=== PATIENT | male | born 1990 | race Hispanic/Latino ===

== ENCOUNTER 2018-04-25 11:16 | Emergency (ER) | payer SELFPAY ==
--- NOTE | 2018-04-25 13:00 | RAD REPORT ---
EXAM DESCRIPTION: RAD - Hand Right 3 View - 04/25/2018 12:53 pm CLINICAL HISTORY: Right hand pain status post injury FINDINGS: Comminuted mildly displaced fracture involves the mid aspect of the first proximal phalanx with angulation present at fracture site. No dislocation noted Deformity of the fifth metacarpal likely secondary to an old fracture
[2018-04-25] MEDS ORDERED: HYDROCODONE/APAP 5/325 MG TAB ONE (13:13)
--- NOTE | 2018-04-25 13:24 | EDPHYS ---
Physician Documentation [facility] Name: Lucien Calvillo Jr Age: 27 yrs Sex: Male : 1990 Arrival Date: 04/25/2018 Time: 11:17 Bed 10 Private MD: None, None ED Physician Negra Brennan HPI: 04/25 13:43 This 27 yrs old Male presents to ER via Ambulatory with complaints of Thumb snw Injury. 13:43 Onset: The symptoms/episode began/occurred acutely. The patient has not experienced snw similar symptoms in the past. The patient has not recently seen a physician. Historical: - Allergies: 11:58 Amoxicillin; ph - Home Meds: 11:58 None [Active]; ph - PMHx: 11:58 None; ph - PSHx: 11:58 None; ph - Immunization history:: Adult Immunizations unknown. - Social history:: Smoking status: Patient/guardian denies using tobacco. - Ebola Screening: : No symptoms or risks identified at this time. ROS: 13:41 Constitutional: Negative for fever, chills, and weight loss, Eyes: Negative for injury, snw pain, redness, and discharge, ENT: Negative for injury, pain, and discharge, Neck: Negative for injury, pain, and swelling, Cardiovascular: Negative for chest pain, palpitations, and edema, Respiratory: Negative for shortness of breath, cough, wheezing, and pleuritic chest pain, Abdomen/GI: Negative for abdominal pain, nausea, vomiting, diarrhea, and constipation, Back: Negative for injury and pain, : Negative for injury, bleeding, discharge, and swelling, Skin: Negative for injury, rash, and discoloration, Neuro: Negative for headache, weakness, numbness, tingling, and seizure, Psych: Negative for depression, anxiety, suicide ideation, homicidal ideation, and hallucinations. 13:41 MS/extremity: Positive for injury or acute deformity, contusion, decreased range of motion, ecchymosis, pain, swelling, tenderness, of the right thumb. Exam: 13:36 Constitutional: This is a well developed, cachectic patient who is awake, alert, and snw in no acute distress. Head/Face: Normocephalic, atraumatic. Eyes: Pupils equal round and reactive to light, extra-ocular motions intact. Lids and lashes normal. Conjunctiva and sclera are non-icteric and not injected. Cornea within normal limits. Periorbital areas with no swelling, redness, or edema. ENT: Nares patent. No nasal discharge, no septal abnormalities noted. Tympanic membranes are normal and external auditory canals are clear. Oropharynx with no redness, swelling, or masses, exudates, or evidence of obstruction, uvula midline. Mucous membranes moist. Neck: Trachea midline, no thyromegaly or masses palpated, and no cervical lymphadenopathy. Supple, full range of motion without nuchal rigidity, or vertebral point tenderness. No Meningismus. Chest/axilla: Normal chest wall appearance and motion. Nontender with no deformity. No lesions are appreciated. Cardiovascular: Regular rate and rhythm with a normal S1 and S2. No gallops, murmurs, or rubs. Normal PMI, no JVD. No pulse deficits. Respiratory: Lungs have equal breath sounds bilaterally, clear to auscultation and percussion. No rales, rhonchi or wheezes noted. No increased work of breathing, no retractions or nasal flaring. Abdomen/GI: Soft, non-tender, with normal bowel sounds. No distension or tympany. No guarding or rebound. No evidence of tenderness throughout. Back: No spinal tenderness. No costovertebral tenderness. Full range of motion. Skin: Warm, dry with normal turgor. Normal color with no rashes, no lesions, and no evidence of cellulitis. Neuro: Awake and alert, GCS 15, oriented to person, place, time, and situation. Cranial nerves II-XII grossly intact. Motor strength 5/5 in all extremities. Sensory grossly intact. Cerebellar exam normal. Normal gait. Psych: Awake, alert, with orientation to person, place and time. Behavior, mood, and affect are within normal limits. 13:42 Musculoskeletal/extremity: Extremities: noted in the right thumb: contusion, deformity, snw ecchymosis, swelling, tenderness, ROM: intact in all extremities, Circulation is intact in all extremities. Sensation intact. right thumb shortened. Vital Signs: 12:02 BP 126 / 78; Pulse 99; Resp 18; Temp 98.6; Pulse Ox 100% on R/A; Weight 52.16 kg; ph Height 5 ft. 5 in. (165.10 cm); Pain 5/10; 12:02 Body Mass Index 19.14 (52.16 kg, 165.10 cm) ph MDM: 12:15 Patient medically screened. snw 13:43 Data reviewed: vital signs, nurses notes. Data interpreted: Pulse oximetry: on room air snw is 100 %. Counseling: I had a detailed discussion with the patient and/or guardian regarding: the historical points, exam findings, and any diagnostic results supporting the discharge/admit diagnosis, radiology results, the need for outpatient follow up, for definitive care, to return to the emergency department if symptoms worsen or persist or if there are any questions or concerns that arise at home. Special discussion: Based on the history and exam findings, there is no indication for further emergent testing or inpatient evaluation. I discussed with the patient/guardian the need to see the orthopedic surgeon for further evaluation of the symptoms. I discussed with the patient/guardian the need to see the primary care provider for further evaluation of the symptoms. 04/25 12:19 Order name: Hand Right 3 View XRAY; Complete Time: 13:02 snw 04/25 12:56 Order name: Thumb Spica Splint; Complete Time: 13:13 snw Administered Medications: 13:09 Drug: [place] 5 mg-325 mg 1 tabs Route: PO; hb Disposition: 04/25/18 13:23 Discharged to Home. Impression: Fracture of proximal phalanx of thumb. - Condition is Stable. - Discharge Instructions: Cast or Splint Care, Adult, RICE for Routine Care of Injuries, Thumb Fracture. - Medication Reconciliation Form, Thank You Letter, Antibiotic Education, Prescription Opioid Use form. - Follow up: Private Physician; When: 2 - 3 days; Reason: Recheck today's complaints, Continuance of care, Re-evaluation by your physician. Follow up: Emergency Department; When: As needed; Reason: Worsening of condition. Follow up: Robby Dickerson MD; When: 2 - 3 days; Reason: Recheck today's complaints, Continuance of care. Follow up: Star Albrecht MD; When: 2 - 3 days; Reason: Recheck today's complaints, Continuance of care. Addendum: 04/27/2018 15:27 Co-signature as Attending Physician, Negra Brennan MD. m a2 Signatures: Dispatcher [employer] EDMS Nora Chambers, SEWER PIPE OFFBEARER-C SEWER PIPE OFFBEARER-Csnw Cande Garcias, RN RN Sandra Cano, DEANN RN Negra Brennan MD MD ma2 Corrections: (The following items were deleted from the chart) 04/25 13:24 13:23 04/25/2018 13:23 Discharged to Home. Impression: Fracture of proximal phalanx of snw thumb. Condition is Stable. Forms are Medication Reconciliation Form, Thank You Letter, Antibiotic Education, Prescription Opioid Use. Follow up: Private Physician; When: 2 - 3 days; Reason: Recheck today's complaints, Continuance of care, Re-evaluation by your physician. Follow up: Emergency Department; When: As needed; Reason: Worsening of condition. snw 13:30 13:24 04/25/2018 13:23 Discharged to Home. Impression: Fracture of proximal phalanx of hb thumb. Condition is Stable. Forms are Medication Reconciliation Form, Thank You Letter, Antibiotic Education, Prescription Opioid Use. Follow up: Private Physician; When: 2 - 3 days; Reason: Recheck today's complaints, Continuance of care, Re-evaluation by your physician. Follow up: Emergency Department; When: As needed; Reason: Worsening of condition. Follow up: Robby Dickerson; When: 2 - 3 days; Reason: Recheck today's complaints, Continuance of care. Follow up: Star Albrecht; When: 2 - 3 days; Reason: Recheck today's complaints, Continuance of care. snw
--- NOTE | 2018-04-25 13:24 | ER ---
Nurse's Notes [facility] Name: Lucien Calvillo Jr Age: 27 yrs Sex: Male : 1990 Arrival Date: 04/25/2018 Time: 11:17 Bed 10 Private MD: None, None Diagnosis: Fracture of proximal phalanx of thumb Presentation: 04/25 12:01 Presenting complaint: Patient states: I was wrestling w/ my cousin on [place] and I ph think I broke my thumb." Bruising and swelling noted to R hand and thumb. Transition of care: patient was not received from another setting of care. Onset of symptoms was April 25, 2018. Risk Assessment: Do you want to hurt yourself or someone else? Patient reports no desire to harm self or others. Initial Sepsis Screen: Does the patient meet any 2 criteria? No. Patient's initial sepsis screen is negative. Does the patient have a suspected source of infection? No. Patient's initial sepsis screen is negative. Care prior to arrival: None. 12:01 Method Of Arrival: Ambulatory ph 12:01 Acuity: GINNY 4 ph Historical: - Allergies: 11:58 Amoxicillin; ph - Home Meds: 11:58 None [Active]; ph - PMHx: 11:58 None; ph - PSHx: 11:58 None; ph - Immunization history:: Adult Immunizations unknown. - Social history:: Smoking status: Patient/guardian denies using tobacco. - Ebola Screening: : No symptoms or risks identified at this time. Screenin:30 Abuse screen: Denies threats or abuse. Denies injuries from another. Nutritional ph screening: No deficits noted. Tuberculosis screening: No symptoms or risk factors identified. Fall Risk None identified. Assessment: 12:30 General: Appears in no apparent distress. comfortable, slender, well groomed, Behavior ph is calm, cooperative, appropriate for age. Pain: Complains of pain in dorsal aspect of proximal phalanx of right thumb. Neuro: Level of Consciousness is awake, alert, obeys commands, Oriented to person, place, time, situation. Cardiovascular: Capillary refill < 3 seconds in bilateral fingers Patient's skin is warm and dry. Pulses are palpable in right radial artery and left radial artery. Respiratory: Airway is patent Respiratory effort is even, unlabored. Derm: Skin is intact, is healthy with good turgor, Skin is pink, warm \\T\\ dry. Bruising that is dark purple, green, on lateral aspect of right hand. Musculoskeletal: Circulation, motion, and sensation intact. Range of motion: limited in MCP of right thumb Swelling present in dorsal aspect of proximal phalanx of right thumb. Vital Signs: 12:02 BP 126 / 78; Pulse 99; Resp 18; Temp 98.6; Pulse Ox 100% on R/A; Weight 52.16 kg; ph Height 5 ft. 5 in. (165.10 cm); Pain 5/10; 12:02 Body Mass Index 19.14 (52.16 kg, 165.10 cm) ph ED Course: 11:17 Patient arrived in ED. mr 11:17 None, None is Private Physician. mr 11:48 [facility]C [facility] snw 11:48 Negra Brennan MD is Attending Physician. snw 12:01 Cande Garcias, RN is Primary Nurse. ph 12:02 Triage completed. ph 12:03 Arm band placed on Patient placed in an exam room. ph 12:30 Patient has correct armband on for positive identification. Bed in low position. Call ph light in reach. Side rails up X 1. 12:53 Hand Right 3 View XRAY In Process Unspecified. EDMS 12:55 X-ray completed. Portable x-ray completed in exam room. Patient tolerated procedure kp1 well. 13:23 Robby Dickerson MD is Referral Physician. snw 13:24 Star Albrecht MD is Referral Physician. snw 13:30 No provider procedures requiring assistance completed. Patient did not have IV access hb during this emergency room visit. Administered Medications: 13:09 Drug: [place] 5 mg-325 mg 1 tabs Route: PO; hb Outcome: 13:23 Discharge ordered by . snw 13:30 Discharged to home ambulatory, with significant other. hb 13:30 Condition: stable 13:30 Discharge instructions given to patient, Instructed on discharge instructions, follow up and referral plans. Demonstrated understanding of instructions, follow-up care, medications, splint care. 13:30 Patient left the ED. hb Signatures: Dispatcher [employer] EDMS Nora Chambers FNP-C FNP-Csnw Lisha Gordillo Patricia, RN RN ph Sandra Cano, RN RN Lynn Raza kp1
[2018-04-25 13:39] VITALS: BP 126/78; TEMP 98.6; O2SAT 100
== END 2018-04-25 13:30 | disposition home or self-care (01) ==
LOC: ER 11:16
DX: S62.511A Displaced fracture of proximal phalanx of right thumb, initial encounter for closed fracture (principal); X58.XXXA Exposure to other specified factors, initial encounter; Y93.72 Activity, wrestling
CPT/HCPCS: 99283

== ENCOUNTER 2018-05-23 09:09 | Emergency (ER) | payer SELFPAY ==
--- NOTE | 2018-05-23 09:38 | EDPHYS ---
Physician Documentation [facility] Name: Lucien Calvillo Jr Age: 27 yrs Sex: Male : 1990 Arrival Date: 05/23/2018 Time: 09:12 Bed 14 Private MD: ED Physician Jp Rios HPI: 05/23 15:43 This 27 yrs old Male presents to ER via Ambulatory with complaints of kdr Toothache, Facial Swelling. 15:43 The patient presents with pain, swelling. The problem is located in the upper left kdr first bicuspid, upper left second bicuspid and upper left first molar. Onset: The symptoms/episode began/occurred 2 day(s) ago. Duration: The symptoms are continuous, and are steadily getting worse. Modifying factors: The symptoms are alleviated by nothing, the symptoms are aggravated by air, chewing, cold fluids, food. Associated signs and symptoms: Pertinent positives: pain, redness in area, swelling, Pertinent negatives: anorexia, chills, dysphagia, fever, inability to eat, vomiting. Severity of symptoms: At their worst the symptoms were moderate, in the emergency department the symptoms are unchanged. The patient has experienced similar episodes in the past, a few times. The patient has not recently seen a physician. Historical: - Allergies: 09:27 Amoxicillin; tw2 - Home Meds: :27 None [Active]; tw2 - PMHx: :27 None; tw2 - PSHx: :27 None; tw2 - Immunization history:: Adult Immunizations. - Social history:: Smoking status: . - Ebola Screening: : Patient negative for fever greater than or equal to 101.5 degrees Fahrenheit, and additional compatible Ebola Virus Disease symptoms. ROS: 15:43 Constitutional: Negative for fever, chills, and weight loss, Eyes: Negative for injury, kdr pain, redness, and discharge, Neck: Negative for injury, pain, and swelling, Cardiovascular: Negative for chest pain, palpitations, and edema, Respiratory: Negative for shortness of breath, cough, wheezing, and pleuritic chest pain, Abdomen/GI: Negative for abdominal pain, nausea, vomiting, diarrhea, and constipation, Back: Negative for injury and pain. 15:43 ENT: Positive for dental pain, Negative for drainage from ear(s), ear pain, foreign body sensation, hearing loss, pulling at ears. Exam: 15:43 Constitutional: This is a well developed, well nourished patient who is awake, alert, kdr and in no acute distress. Head/Face: Normocephalic, atraumatic. Eyes: Pupils equal round and reactive to light, extra-ocular motions intact. Lids and lashes normal. Conjunctiva and sclera are non-icteric and not injected. Cornea within normal limits. Periorbital areas with no swelling, redness, or edema. Neck: Trachea midline, no thyromegaly or masses palpated, and no cervical lymphadenopathy. Supple, full range of motion without nuchal rigidity, or vertebral point tenderness. No Meningismus. Chest/axilla: Normal chest wall appearance and motion. Nontender with no deformity. No lesions are appreciated. Cardiovascular: Regular rate and rhythm with a normal S1 and S2. No gallops, murmurs, or rubs. Normal PMI, no JVD. No pulse deficits. 15:43 ENT: Mouth: Lips: normal, Oral mucosa: normal, Dental exam: abscess, that is moderate, specifically in the upper left first bicuspid (#12), upper left second bicuspid (#13) and upper left first molar (#14), dental caries, that is moderate, diffusely, fractured teeth are noted, diffusely. Vital Signs: 09:29 BP 119 / 77; Pulse 69; Resp 18; Temp 98.6(O); Pulse Ox 100% on R/A; Pain 9/10; tw2 MDM: 09:35 Patient medically screened. kdr 15:43 Data reviewed: vital signs, nurses notes. Counseling: I had a detailed discussion with kdr the patient and/or guardian regarding: the historical points, exam findings, and any diagnostic results supporting the discharge/admit diagnosis, the need for further work-up and treatment in the hospital. ED course: The patient is going directly to the dentist. Administered Medications: 09:33 Drug: Ibuprofen 800 mg Route: PO; tw2 09:37 Follow up: Response: No adverse reaction tw2 Disposition: 05/23/18 09:35 Discharged to Home. Impression: Dental Abscess, Facial Cellulitis. - Condition is Stable. - Discharge Instructions: Cellulitis, Adult, [id number], Dental Abscess, [id number]. - Medication Reconciliation Form, Thank You Letter form. - Follow up: Private Physician; When: Upon discharge from the Emergency Department; Reason: If symptoms return, Further diagnostic work-up, Recheck today's complaints, Continuance of care, Re-evaluation by your physician. - Problem is new. - Symptoms are unchanged. Signatures: Jp Rios MD MD kdr Deb Best RN RN tw2 Corrections: (The following items were deleted from the chart) 09:37 09:35 05/23/2018 09:35 Discharged to Home. Impression: Dental Abscess; Facial tw2 Cellulitis. Condition is Stable. Forms are Medication Reconciliation Form, Thank You Letter, Antibiotic Education, Prescription Opioid Use. Follow up: Private Physician; When: Upon discharge from the Emergency Department; Reason: If symptoms return, Further diagnostic work-up, Recheck today's complaints, Continuance of care, Re-evaluation by your physician. Problem is new. Symptoms are unchanged. kdr
--- NOTE | 2018-05-23 09:38 | ER ---
Nurse's Notes [facility] Name: Lucien Calvillo Jr Age: 27 yrs Sex: Male : 1990 Arrival Date: 05/23/2018 Time: 09:12 Bed 14 Private MD: Diagnosis: Dental Abscess;Facial Cellulitis Presentation: 05/23 09:23 Presenting complaint: Patient states: i have a tooth that is killing me and i made a tw2 dentist appt at 940 today but i really need something for pain, is it gonna be quick because i dont want to miss that appt". Transition of care: patient was not received from another setting of care. Onset of symptoms was May 23, 2018. Risk Assessment: Do you want to hurt yourself or someone else? Patient reports no desire to harm self or others. Initial Sepsis Screen: Does the patient meet any 2 criteria? No. Patient's initial sepsis screen is negative. Does the patient have a suspected source of infection? No. Patient's initial sepsis screen is negative. Care prior to arrival: None. 09:23 Method Of Arrival: Ambulatory tw2 09:23 Acuity: GINNY 4 tw2 Triage Assessment: 09:28 General: Appears uncomfortable, slender, Behavior is calm, cooperative, appropriate for tw2 age. Pain: Complains of pain in left cheek, left eye, mouth and left jaw. EENT: swelling noted to LEFT eye, cheek, pt reports dental pain. Reports pain in left ear, left cheek, left eye, mouth and left jaw. Respiratory: Airway is patent Respiratory effort is even, unlabored, Respiratory pattern is regular, symmetrical. Historical: - Allergies: 09:27 Amoxicillin; tw2 - Home Meds: 09:27 None [Active]; tw2 - PMHx: 09:27 None; tw2 - PSHx: 09:27 None; tw2 - Immunization history:: Adult Immunizations. - Social history:: Smoking status: . - Ebola Screening: : Patient negative for fever greater than or equal to 101.5 degrees Fahrenheit, and additional compatible Ebola Virus Disease symptoms. Screenin:35 Abuse screen: Denies threats or abuse. Nutritional screening: No deficits noted. tw2 Tuberculosis screening: No symptoms or risk factors identified. Fall Risk None identified. Vital Signs: 09:29 BP 119 / 77; Pulse 69; Resp 18; Temp 98.6(O); Pulse Ox 100% on R/A; Pain 9/10; tw2 ED Course: 09:12 Patient arrived in ED. rg4 09:16 Jp Rios MD is Attending Physician. kdr 09:23 Arm band placed on. tw2 09:23 Bed in low position. Call light in reach. Pulse ox on. NIBP on. tw2 09:27 Triage completed. tw2 09:32 Deb Best, RN is Primary Nurse. tw2 09:36 No provider procedures requiring assistance completed. Patient did not have IV access tw2 during this emergency room visit. Administered Medications: 09:33 Drug: Ibuprofen 800 mg Route: PO; tw2 09:37 Follow up: Response: No adverse reaction tw2 Outcome: 09:35 Discharge ordered by . kdr 09:36 Discharged to home ambulatory. tw2 09:36 Condition: stable 09:37 Discharged to home ambulatory. tw2 09:37 Condition: stable 09:37 Discharge instructions given to patient, Instructed on discharge instructions, follow up and referral plans. Demonstrated understanding of instructions, follow-up care. 09:37 Patient left the ED. tw2 Signatures: Jp Rios MD MD kdr Deb Best RN RN tw2 Jennifer Tate rg4
[2018-05-23 09:43] VITALS: BP 119/77; TEMP 98.6; O2SAT 100
[2018-05-23] MEDS ORDERED: IBUPROFEN 400 MG TAB ONE (09:44)
== END 2018-05-23 09:37 | disposition home or self-care (01) ==
LOC: ER 09:09
DX: K12.2 Cellulitis and abscess of mouth (principal); K04.7 Periapical abscess without sinus
CPT/HCPCS: 99283

== ENCOUNTER 2018-11-07 18:22 | Emergency (ER) | payer SELFPAY ==
--- OUTSIDE RECORDS SUMMARY | 2018-11-07 18:26 | XMS REPORT ---
:1990 [facility] [address] [place] [address] Care Team Providers Name Role Phone Unavailable Unavailable Unavailable Problems This patient has no known problems. Allergies, Adverse Reactions, Alerts This patient has no known allergies or adverse reactions. Medications This patient has no known medications. Encounters Start End Encounter Admission Attending Care Care Encounter Date/Time Date/Time Type Type Clinicians Facility Department ID 2018-10-26 2018-10-26 Inpatient U [facility] [id number] 05:23:00 00:57:00
--- NOTE | 2018-11-07 20:07 | ER ---
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 Transition of care: patient was not received from another setting of care. Onset of symptoms was November 07, 2018. Risk Assessment: Do you want to hurt yourself or someone else? Patient reports no desire to harm self or others. Initial Sepsis Screen: Does the patient meet any 2 criteria? No. Patient's initial sepsis screen is negative. Does the patient have a suspected source of infection? No. Patient's initial sepsis screen is negative. Care prior to arrival: None. 18:43 Method Of Arrival: Ambulatory ph 18:43 Acuity: GINNY 3 ph Triage Assessment: 20:12 General: Appears in no apparent distress. Behavior is cooperative, flat. ao Historical: - Allergies: 18:50 Amoxicillin; ph - PMHx: 18:50 MELAS; CVA; Seizures; ph - PSHx: 18:50 None; ph - Immunization history:: Adult Immunizations unknown. - Social history:: Smoking status: Patient uses tobacco products, denies chronic smoking, but will smoke occasionally. - Ebola Screening: : Patient negative for fever greater than or equal to 101.5 degrees Fahrenheit, and additional compatible Ebola Virus Disease symptoms Patient denies exposure to infectious person Patient denies travel to an Ebola-affected area in the 21 days before illness onset. Screenin:27 Abuse screen: Denies threats or abuse. Nutritional screening: No deficits noted. tl2 Tuberculosis screening: No symptoms or risk factors identified. Fall Risk Gait- Impaired (20 pts.). Assessment: 20:10 General: Appears in no apparent distress. comfortable, Behavior is cooperative, flat. ao Pain: Denies pain. Neuro: Level of Consciousness is awake, alert, obeys commands, Oriented to person, place, time, situation, Appropriate for age Moves all extremities. Full function Speech is normal, Facial symmetry appears normal. Cardiovascular: Capillary refill < 3 seconds Patient's skin is warm and dry. Respiratory: Airway is patent Respiratory effort is even, unlabored, Respiratory pattern is regular, symmetrical. GI: Abdomen is flat. :. EENT: No deficits noted. No signs and/or symptoms were reported regarding the EENT system. Derm: Skin is intact, Skin is pink, warm \T\ dry. normal, Skin temperature is warm. Musculoskeletal: Circulation, motion, and sensation intact. Range of motion:. 20:24 Reassessment: DC instructions given to patient and mom. Patient agree with the POC and ao to follow up. Vital Signs: 18:50 BP 123 / 74; Pulse 118; Resp 18; Temp 97.8; Pulse Ox 97% on R/A; Height 5 ft. 5 in. ph (165.10 cm); Pain 0/10; 19:26 BP 130 / 91; Pulse 86; Resp 20; Pulse Ox 98% on R/A; tl2 Baisden Coma Score: 20:12 Eye Response: spontaneous(4). Verbal Response: oriented(5). Motor Response: obeys ao commands(6). Total: 15. ED Course: 18:24 Patient arrived in ED. as 18:47 Triage completed. ph 18:50 Arm band placed on Patient placed in an exam room, on a stretcher. ph 19:04 Art Mccoy MD is Attending Physician. gs 19:27 Patient has correct armband on for positive identification. Bed in low position. Call tl2 light in reach. Side rails up X2. Seizure precautions initiated. 20:05 Hunter Clancy, DEANN is Primary Nurse. ao 20:23 No provider procedures requiring assistance completed. Patient did not have IV access ao during this emergency room visit. Administered Medications: 20:09 Drug: Keppra 1000 mg Route: PO; ao 20:27 Follow up: Response: No adverse reaction ao Outcome: 20:06 Discharge ordered by . gs 20:23 Discharged to home ambulatory. ao 20:23 Condition: stable 20:23 Discharge instructions given to patient, Instructed on discharge instructions, follow up and referral plans. 20:26 Patient left the ED. ao Signatures: Joie Hoffman Patricia, RN RN ph Hunter Clancy RN RN Deborah Guevara RN RN tl2 Art Mccoy MD MD
--- NOTE | 2018-11-07 20:07 | EDPHYS ---
Physician Documentation [facility] Name: Lucien Calvillo Jr Age: 28 yrs Sex: Male : 1990 Arrival Date: 11/07/2018 Time: 18:24 Bed 4 Private MD: ED Physician Art Mccoy HPI: 11/07 20:02 This 28 yrs old Male presents to ER via Ambulatory with complaints of Seizure. gs 20:02 The patient presents after having a single isolated seizure. Character of seizure(s): gs Motor activity: generalized. Seizure onset: yesterday x one. Associated injury: The patient did not suffer any apparent associated injury. Current symptoms: tingling lateral left hand. The patient has experienced a previous episode. The patient has been recently seen by a physician: ashwini wilkinson has been unable to get med fillied. 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 - Social history:: Smoking status: Patient uses tobacco products, denies chronic smoking, but will smoke occasionally. - Ebola Screening: : Patient negative for fever greater than or equal to 101.5 degrees Fahrenheit, and additional compatible Ebola Virus Disease symptoms Patient denies exposure to infectious person Patient denies travel to an Ebola-affected area in the 21 days before illness onset. ROS: 20:02 All other systems are negative. gs Exam: 20:02 Head/Face: Normocephalic, atraumatic. Eyes: Pupils equal round and reactive to light, gs extra-ocular motions intact. Lids and lashes normal. Conjunctiva and sclera are non-icteric and not injected. Cornea within normal limits. Periorbital areas with no swelling, redness, or edema. ENT: Nares patent. No nasal discharge, no septal abnormalities noted. Tympanic membranes are normal and external auditory canals are clear. Oropharynx with no redness, swelling, or masses, exudates, or evidence of obstruction, uvula midline. Mucous membranes moist. Neck: Trachea midline, no thyromegaly or masses palpated, and no cervical lymphadenopathy. Supple, full range of motion without nuchal rigidity, or vertebral point tenderness. No Meningismus. Chest/axilla: Normal chest wall appearance and motion. Nontender with no deformity. No lesions are appreciated. Cardiovascular: Regular rate and rhythm with a normal S1 and S2. No gallops, murmurs, or rubs. Normal PMI, no JVD. No pulse deficits. Respiratory: Lungs have equal breath sounds bilaterally, clear to auscultation and percussion. No rales, rhonchi or wheezes noted. No increased work of breathing, no retractions or nasal flaring. Abdomen/GI: Soft, non-tender, with normal bowel sounds. No distension or tympany. No guarding or rebound. No evidence of tenderness throughout. Back: No spinal tenderness. No costovertebral tenderness. Full range of motion. Skin: Warm, dry with normal turgor. Normal color with no rashes, no lesions, and no evidence of cellulitis. MS/ Extremity: Pulses equal, no cyanosis. Neurovascular intact. Full, normal range of motion. 20:02 Constitutional: The patient appears alert, awake. 20:02 Neuro: Orientation: is normal, Mentation: is normal, Memory: is normal, Cranial nerves: CN II- XII are normal as tested, Cerebellar function: no acute changes, Motor: moves all fours, strength is 5/5 in all extremities, Sensation: pin prick is decreased in the lateral aspect of left wrist and lateral aspect of left hand. Vital Signs: 18:50 BP 123 / 74; Pulse 118; Resp 18; Temp 97.8; Pulse Ox 97% on R/A; Height 5 ft. 5 in. ph (165.10 cm); Pain 0/10; 19:26 BP 130 / 91; Pulse 86; Resp 20; Pulse Ox 98% on R/A; tl2 Kendra Coma Score: 20:12 Eye Response: spontaneous(4). Verbal Response: oriented(5). Motor Response: obeys ao commands(6). Total: 15. MDM: 19:34 Patient medically screened. gs 20:02 Data reviewed: vital signs, nurses notes, old medical records. Counseling: I had a gs detailed discussion with the patient and/or guardian regarding: the historical points, exam findings, and any diagnostic results supporting the discharge/admit diagnosis, the need for outpatient follow up. ED course: spoke to dr wilkinson on phone wants loaded po keppra , will call pt in am with social media director [facility] to get meds filled. Administered Medications: 20:09 Drug: Keppra 1000 mg Route: PO; ao 20:27 Follow up: Response: No adverse reaction ao Disposition: 11/07/18 20:06 Discharged to Home. Impression: Epilepsy and recurrent seizures. - Condition is Stable. - Discharge Instructions: Seizure, Adult. - Medication Reconciliation Form, Thank You Letter, Antibiotic Education, Prescription Opioid Use form. - Follow up: Private Physician; When: Tomorrow; Reason: Continuance of care. Signatures: Cande Garcias RN RN Hunter Clancy RN RN ao Art Mccoy MD MD Corrections: (The following items were deleted from the chart) 20:26 20:06 11/07/2018 20:06 Discharged to Home. Impression: Epilepsy and recurrent seizures. ao Condition is Stable. Forms are Medication Reconciliation Form, Thank You Letter, Antibiotic Education, Prescription Opioid Use. Follow up: Private Physician; When: Tomorrow; Reason: Continuance of care.
[2018-11-07] MEDS ORDERED: levETIRAcetam 500 MG TAB ONE (20:22)
[2018-11-07 20:32] VITALS: BP 130/91; TEMP 97.8; O2SAT 98
== END 2018-11-07 20:26 | disposition home or self-care (01) ==
LOC: ER 18:22
DX: G40.802 Other epilepsy, not intractable, without status epilepticus (principal); Z72.0 Tobacco use; Z88.1 Allergy status to other antibiotic agents
CPT/HCPCS: 99283

== ENCOUNTER 2018-11-29 20:55 | Emergency (ER) | payer SELFPAY ==
--- OUTSIDE RECORDS SUMMARY | 2018-11-29 21:00 | XMS REPORT | Continuity of Care Document ---
:1990 Author Organization [employer] Information [facility] Care Team Providers Name Role Phone Atooma Unavailable Unavailable Problems Problem Status Onset Classification Date Comments Source Date Reported AMS Active [address] MELAS, LACTIC Active [place] [address] Medical STRK-LIKE EPISO Center MELAS SYNDROME Active [facility] CEREBRAL Active [facility] INFARCTION, Medical UNSPECIFIED Center Medications Medication Details Route Status Patient Ordering Order Source Instructions Provider Date lacosamide 50 mg 50 mg=1 tab, Active [facility] oral tablet PO, BID, # 120 2019 Medical tab, 2 Center Refill(s) olanzapine 5 MG 5 mg=1 tab, Active [facility] Oral Tablet PO, PRN, PRN 2019 Medical Other -See Center Comment, PRN Q12, # 60 tab, 0 Refill(s) ubiquinone 200 mg 400 mg=2 cap, Active [facility] oral capsule PO, Daily, # 2019 Medical 120 cap, 0 Center Refill(s) melatonin 3 mg 6 mg=2 tab, Active [facility] oral tablet PO, Bedtime, 2019 Medical PRN Sleep, # Center 60 tab, 0 Refill(s) lacosamide 50 mg 50 mg=1 tab, Inactive [facility] oral tablet PO, BID, # 7 2019 Medical tab, 0 Center Refill(s) olanzapine 5 MG 5 mg=1 tab, Inactive [facility] Oral Tablet PO, PRN, PRN 2019 Medical Other -See Center Comment, # 60 tab, 0 Refill(s) arginine 500 mg 5,000 mg=10 Active 11/05[facility] oral capsule cap, PO, TID, 2019 Medical # 1800 cap, 0 Center Refill(s) D10W 980.75 mL + 980.75 mL, No Longer [facility] sodium chloride Rate: 100 Active 2019 Medical 23.4% IV 77 mEq ml/hr, Infuse Center over: 10 hr, Route: IV, Dosing Weight 50 kg, Total Volume: 1,000, Priority: Routine, Start date: 11/04/18 20:55:00 CDT, Duration: 30 day, Stop date: 12/04/18 20:54:00 CDT, 1.55, m2, 0 magnesium sulfate 2 gm, 50 mL, Inactive 11/03[facility] Route: IVPB, 2019 Medical Drug form: [place] INJ, ONCE, Dosing Weight 50, kg, Total dose=2 gm, Start date: 11/03/18 12:44:00 CDT, Stop date: 11/03/18 12:44:00 CDT, 0Notes: WASTE: F/P - Sink; E - Municipal Trash Bin Potassium 40 mEq, 2 tab, Inactive 11/03[facility] Chloride Route: PO, 2019 Medical Drug form: [place] ERTAB, ONCE, Dosing Weight 50, kg, Priority: NOW, Start date: 11/03/18 12:40:00 CDT, Stop date: 11/03/18 12:40:00 CDT, 0 arginine 5,000 mg, 10 Inactive 11/03[facility] cap, Route: 2019 Medical PO, Drug form: [place] CAP, ONCE, Start date: 11/03/18 10:45:00 CDT, Stop date: 11/03/18 10:45:00 CDT, 0Notes: (Same as: Arginine) potassium 20 mEq, 100 Inactive 11/03[facility] chloride mL, Route: 2019 Medical IVPB, Drug Center form: INJ, Q2H, Start date: 11/03/18 8:30:00 CDT, Duration: 3 doses or times, Stop date: 11/03/18 12:00:00 CDT, 0 Potassium 10 mEq, Route: Inactive 11/03[facility] Chloride IVPB, Q1H, 2019 Medical Dosing Weight [place] 50, kg, Total Dose=60 meq, Start date: 11/03/18 7:22:00 CDT, Duration: 6 doses or times, Stop date: 11/03/18 12:22:00 CDT, Peripheral Line Magnesium Sulfate 2 gm, 50 mL, Inactive 11/03[facility] Route: IVPB, 2019 Medical Drug form: [place] INJ, ONCE, Dosing Weight 50, kg, Total dose=2 gm, Start date: 11/03/18 7:21:00 CDT, Stop date: 11/03/18 7:21:00 CDT, 0Notes: WASTE: F/P - Sink; E - [employer] Trash [facility] magnesium sulfate 2 gm, 50 mL, Inactive [facility] Route: IVPB2018 Medical Drug form: Center INJ, Q2H, Dosing Weight 50, kg, Total dose=4 gm, Start date: 11/02/18 14:00:00 CDT, Duration: 2 doses or times, Stop date: 11/02/18 16:00:00 CDT, 0Notes: WASTE: F/P - Sink; E - [facility] Trash [facility] Magnesium Sulfate 2 gm, 50 mL, Inactive [facility] Route: IVPB2018 Medical Drug form: Center INJ, Q2H, Dosing Weight 50, kg, Total dose=4 gm, Start date: 11/02/18 6:29:00 CDT, Duration: 2 doses or times, Stop date: 11/02/18 8:30:00 CDT, 0Notes: WASTE: F/P - Sink; E - [facility] Trash [facility] Potassium 10 mEq, 50 mL, Inactive [place] Chloride Route: IVPB2018 Medical Drug form: Center INJ, Q1H, Dosing Weight 50, kg, Total Dose=40 meq, Start date: 11/02/18 6:00:00 CDT, Duration: 4 doses or times, Stop date: 11/02/18 9:00:00 CDT, Peripheral Line, 0Notes: (Same as: KCL) Infuse over 2 hours. potassium 20 mEq, 15 mL, Inactive [place] chloride Route: PO, 2018 Medical Drug form: [place] LIQ, BID, Dosing Weight 50, kg, Start date: 11/01/18 9:00:00 CDT, Duration: 1 day, Stop date: 11/01/18 17:00:00 CDT, 0Notes: (Same as: Potassium Chloride) Marinol 10 mg, 2 cap, No Longer [place] Route: PO, Active 2019 Medical Drug form: [place] CAP, BID, Dosing Weight 50, kg, Start date: 10/31/18 17:00:00 CDT, Duration: 30 day, Stop date: 11/30/18 9:00:00 CDT, 0Notes: (Same as: Marinol) Magnesium Sulfate 2 gm, 50 mL, Inactive [place] Route: IVPB, 2018 Medical Drug form: Center INJ, ONCE, Dosing Weight 50, kg, Total dose=2 gm, Start date: 10/31/18 12:16:00 CDT, Stop date: 10/31/18 12:16:00 CDT, 0Notes: WASTE: F/P - Sink; E - [facility] Trash Bin Potassium 20 mEq, 100 Inactive [place] Chloride mL, Route: 2019 Medical IVPB, Drug Center form: INJ, Q2H, Dosing Weight 50, kg, Total dose=40 mEq, Start date: 10/31/18 8:00:00 CDT, Duration: 2 doses or times, Stop date: 10/31/18 10:00:00 CDT, Central Line, 0 Potassium 10 mEq, Route: Inactive [place] Chloride IVPB, Q1H, 2018 Medical Dosing Weight Center 50, kg, Total Dose=40 meq, Start date: 10/31/18 7:00:00 CDT, Duration: 4 doses or times, Stop date: 10/31/18 10:00:00 CDT, Peripheral Line Melatonin 6 mg, 2 tab, No Longer [place] Route: PO, Active 2018 Medical Drug form: Center TAB, Bedtime, Dosing Weight 50, kg, PRN Sleep, Start date: 10/31/18 2:45:00 CDT, Duration: 30 day, Stop date: 11/30/18 2:44:00 CDT, 0Notes: (Same as: Melatonin) Phenergan 12.5 mg, 0.5 No Longer [place] mL, Route: Active 2018 Medical IVPB, Drug Center form: INJ, Q6H, Dosing Weight 50, kg, PRN Nausea & Vomiting, Start date: 10/30/18 22:30:00 CDT, Duration: 1 day, Stop date: 10/31/18 22:29:00 CDT, 0Notes: Do not give IV push. (Same as: Phenergan) Vancomycin 1,000 mg, Inactive [place] Route: IVPB, 2019 Medical Drug form: Center INJ, [id number], Dosing Weight 50, kg, Start date: 10/30/18 20:00:00 CDT, Duration: 7 day, Stop date: 11/06/18 8:00:00 CDT, ABX Indication: Bacteremia, 0Notes: TIME CRITICAL MEDICATION (Same As: Vancocin) Infusion rate 2001 mg: infuse over 2.5 hours For adult patients only: Round to nearest 250 mg per Medical Staff approval MEDICATION WASTE Product Size: 1000 mg Product Wasted: ___ mg potassium 20 mEq, 100 Inactive [place] chloride mL, Route: 2019 [facility] IVPB, Drug Center form: INJ, Q2H, Start date: 10/30/18 12:00:00 CDT, Duration: 2 doses or times, Stop date: 10/30/18 14:00:00 CDT, 0Notes: (Same as: KCL) Infuse no faster than 10 mEq/hr if given peripherally. olanzapine 2.5 mg, Route: No Longer [place] IM, Drug form: Active 2019 [facility] INJ, Q4H, [place] Dosing Weight 50, kg, PRN Agitation, Start date: 10/30/18 11:56:00 CDT, Duration: 30 day, Stop date: 11/29/18 11:55:00 CDT, 0Notes: (Same As: ZyPREXA IM). Reconstitute with 2.1 ml sterile water for injection; use within 1 hour after reconstitution . For IM use only; do not administer IV or SUB-Q. Potassium 10 mEq, Route: Inactive [place] Chloride IVPB, Q1H, 2019 [facility] Dosing Weight [place] 50, kg, Total Dose=40 meq, Start date: 10/30/18 11:00:00 CDT, Duration: 4 doses or times, Stop date: 10/30/18 14:00:00 CDT, Peripheral Line Vimpat 50 mg, 1 tab, No Longer [place] Route: PO, Active 2019 Medical Drug form: [place] TAB, BID, Dosing Weight 50, kg, Start date: 10/30/18 9:00:00 CDT, Duration: 30 day, Stop date: 11/28/18 17:00:00 CDT, 0Notes: Same as: Vimpat Potassium 40 mEq, 30 mL, Inactive [facility] Chloride 1.33 Route: PO, 2019 Medical MEQ/ML Oral Drug form: [place] Solution LIQ, Daily, Dosing Weight 50, kg, Start date: 10/30/18 9:00:00 CDT, Duration: 7 day, Stop date: 11/05/18 9:00:00 CDT, 0Notes: (Same as: Potassium Chloride) Vancomycin 1,000 mg, Inactive [facility] Route: IVPB, 2019 Medical Drug form: [place] INJ, ONCE, Dosing Weight 50, kg, Priority: STAT, Start date: 10/30/18 8:59:00 CDT, Stop date: 10/30/18 8:59:00 CDT, ABX Indication: Bacteremia, 0Notes: TIME CRITICAL MEDICATION (Same As: Vancocin) Infusion rate 2001 mg: infuse over 2.5 hours For adult patients only: Round to nearest 250 mg per Medical Staff approval MEDICATION WASTE Product Size: 1000 mg Product Wasted: ___ mg cefepime 1 gm, Route: Inactive [facility] IVP, Drug 2019 Medical form: INJ, Center [id number], Dosing Weight 50, kg, (CrCl >/=60 ml/min), Start date: 10/30/18 8:00:00 CDT, Duration: 7 day, Stop date: 11/06/18 0:00:00 CDT, ABX Indication: Bacteremia, 0Notes: (Same As: Maxipime) MEDICATION WASTE Product Size: 1000 mg Product Wasted: ___ mg Tylenol 650 mg, 20.3 No Longer [facility] mL, Route: PO, Active 2019 Medical Drug form: [place] LIQ, ONCE, Dosing Weight 50, kg, Priority: STAT, Start date: 10/30/18 6:51:00 CDT, Stop date: 10/30/18 6:51:00 CDT, 0Notes: Max acetaminophen= 4000mg/day (4 gm/day). (Same as: Tylenol) L-Arginine 5,000 mg, 10 No Longer [facility] cap, Route: Active 2019 Medical PO, Drug form: [place] CAP, TID, Dosing Weight 50, kg, Priority: NOW, Start date: 10/30/18 4:45:00 CDT, Duration: 30 day, Stop date: 11/28/18 17:00:00 CDT, 0Notes: (Same as: Arginine) Potassium 10 mEq, 50 mL, Inactive [facility] Chloride Route: IVPB2018 Medical Drug form: Center INJ, Q1H, Dosing Weight 50, kg, Total Dose=20 meq, Priority: NOW, Start date: 10/30/18 4:41:00 CDT, Duration: 2 doses or times, Stop date: 10/30/18 5:41:00 CDT, Peripheral Line, 0Notes: (Same as: KCL) Infuse over 2 hours. NS (Bolus) IV 500 mL, 500 Inactive [facility] ml/hr, Infuse 2018 Medical Over: 1 hr, Center Route: IV, 500, Drug form: INJ, ONCE, Priority: STAT, Dosing Weight 50 kg, Start date: 10/30/18 0:46:00 CDT, Stop date: 10/30/18 0:46:00 CDT, 0 Zyprexa 2.5 mg, 1 tab, No Longer [facility] Route: PO, Active 2019 Medical Drug form: Center TAB, BID, Dosing Weight 50, kg, Priority: NOW, Start date: 10/29/18 19:18:00 CDT, Duration: 2 doses or times, Stop date: 11/02/18 9:00:00 CDT, 0Notes: (Same as: ZyPREXA) NS (Bolus) IV 500 mL, 500 Inactive [facility] ml/hr, Infuse 2018 Medical Over: 1 hr, Center Route: IV, 500, Drug form: INJ, ONCE, Priority: STAT, Dosing Weight 50 kg, Start date: 10/29/18 3:57:00 CDT, Stop date: 10/29/18 3:57:00 CDT, 0 Potassium 10 mEq, 50 mL, Inactive [facility] Chloride Route: IVPB, 2018 Medical Drug form: Center INJ, Q1H, Dosing Weight 50, kg, Total Dose=20 meq, Start date: 10/29/18 2:00:00 CDT, Duration: 2 doses or times, Stop date: 10/29/18 3:00:00 CDT, Peripheral Line, 0Notes: (Same as: KCL) Infuse over 2 hours. D10W 980.75 mL + 980.75 mL, No Longer [facility] sodium chloride Rate: 200 Active 2019 Medical 23.4% IV 77 mEq ml/hr, Infuse Center over: 5 hr, Route: IV, Dosing Weight 50 kg, Total Volume: 1,000, Priority: Routine, Start date: 10/28/18 18:03:00 CDT, Duration: 30 day, Stop date: 11/27/18 18:02:00 CDT, 1.55, m2, 0 sterile water 2.1 mL, Route: No Longer [facility] MISC, Drug Active 2018 Medical Form: INJ, Center Q4H, PRN Other -See Comment, Start date: 10/28/18 14:54:00 CDT, Stop date: 11/27/18 14:53:00 CDT, 0 Geodon 10 mg, Route: Inactive [facility] IM, Drug form: 2019 Medical PDR/INJ, ONCE, Center Dosing Weight 50, kg, Priority: NOW, Start date: 10/28/18 14:48:00 CDT, Stop date: 10/28/18 14:48:00 CDT, 0Notes: Reconstitute with 1.2 ml of sterile water. Final concentration= 20 mg/1ml. Maximum 40 mg/24 hours (Same As: Geodon). MEDICATION WASTE Product Size: 20 mg Product Wasted: _0__ mg Acyclovir 500 mg, Route: Inactive 10/28[facility] IV, Q8H-2018 Medical Dosing Weight Center 50, kg, Priority: STAT, Start date: 10/28/18 14:01:00 CDT, Duration: 30 day, Stop date: 11/27/18 14:00:00 CDT, 0Notes: (Same as: Zovirax) For adult patients only: Round to nearest 50 mg per Medical Staff approval MEDICATION WASTE Product Size: 500 mg Product Wasted: _0__ mg atorvastatin 80 mg, Route: Inactive 10/27/ [facility] PO, Drug form: 2019 Medical TAB, Bedtime, Center kg, Start date: 10/26/18 21:00:00 CDT, Duration: 30 day, Stop date: 11/24/18 21:00:00 CDT Levocarnitine 2,270 mg, Inactive [facility] Route: PO, 2019 Medical Q12H, Dosing Center Weight 45.455, kg, Start date: 10/26/18 21:00:00 CDT, Duration: 30 day, Stop date: 11/25/18 9:00:00 CDT Geodon 10 mg, Route: No Longer [facility] IM, Drug form: Active 2018 Medical PDR/INJ, Q6H, Center Dosing Weight 45.455, kg, PRN Agitation, Start date: 10/26/18 18:27:00 CDT, Duration: 30 day, Stop date: 11/25/18 18:26:00 CDT, 0Notes: Reconstitute with 1.2 ml of sterile water. Final concentration= 20 mg/1ml. Maximum 40 mg/24 hours (Same As: Geodon). MEDICATION WASTE Product Size: 20 mg Product Wasted: 0mg Keppra 750 mg, Route: No Longer [facility] IVPB, [id number], Active 2018 Medical Dosing Weight Center 45.455, kg, Start date: 10/26/18 18:00:00 CDT, Duration: 30 day, Stop date: 11/25/18 6:00:00 CDT, 0Notes: Same as Keppra Mix with 100 mL NS, LR or D5W MEDICATION WASTE Product Size: 500 mg Product Wasted: ___ mg R-Gene 10 4 gm + Route: IV, No Longer [facility] empty container 1 Drug form: Active 2019 Medical ea INJ, Q4Hnow, Center Start date: 10/26/18 15:00:00 CDT, Duration: 3 day, Stop date: 10/29/18 11:00:00 CDT, 0Notes: (Same as: R-Gene 10) D10W 980.75 mL + 980.75 mL, No Longer [facility] sodium chloride Rate: 150 Active 2019 Medical 23.4% IV 77 mEq ml/hr, Infuse Center over: 6.7 hr, Route: IV, Dosing Weight 50 kg, Total Volume: 1,000, Priority: Routine, Start date: 10/26/18 12:44:00 CDT, Duration: 30 day, Stop date: 11/25/18 12:44:00 CDT, 1.55, m2, 0 arginine 10% 50 mL, Rate: Inactive [facility] additive 5,000 mg 9.09 ml/hr, 2019 Medical [20 mg/kg/hr] + Infuse over: Center Drug Only 50 mL 5.5 hr, Route: IV, Dosing Weight 45.455 kg, Total Volume: 50 mL, Start date: 10/26/18 12:44:00 CDT, Duration: 30 day, Stop date: 11/25/18 12:43:00 CDT, 1.46, m2 ubiquinone 400 mg, 2 cap, No Longer [facility] Route: PO, Active 2019 Medical Drug form: Center CAP, Daily, kg, Start date: 10/26/18 9:00:00 CDT, Duration: 30 day, Stop date: 11/24/18 9:00:00 CDT, 0Notes: (Same As: Co-Enzyme Q10) Saline Flush 0.9% 10 ml, Route: No Longer [facility] IVP, Drug Active 2018 Medical Form: INJ, kg, Center Q12H, Start date: 10/26/18 9:00:00 CDT, Duration: 30 day, Stop date: 11/24/18 21:00:00 CDT, 0Notes: (Same as: BD Posiflush) L-Arginine 5,000 mg, Inactive [facility] Route: PO, 2019 Medical TID, kg, Start Center date: 10/26/18 9:00:00 CDT, Duration: 30 day, Stop date: 11/24/18 17:00:00 CDT Phenergan 25 mg, Route: Inactive [facility] IVPB, ONCE, 2019 Medical kg, Start Center date: 10/26/18 8:58:00 CDT, Stop date: 10/26/18 8:58:00 CDT Dexmedetomidine 400 microgram, No Longer [facility] Rate: Titrate, Active 2019 Medical Start Dose: Center 0.2 microgram/kg/h r, Titration: 0.1 microgram/kg/h r every 30 min, Goal(s): RASS 0, Max Dose: 1.5 microgram/kg/h r, Route: IV, Dosing Weight 45.455 kg, Total Volume: 100, Start date: 10/26/18 7:54:00 CDT, Durati... Saline Flush 0.9% 10 ml, Route: No Longer [facility] IVP, Drug Active 2018 Medical Form: INJ, kg, Center PRN, PRN Line Flush, Start date: 10/26/18 7:45:00 CDT, Duration: 30 day, Stop date: 11/25/18 7:44:00 CDT, 0Notes: (Same as: BD Posiflush) Nystatin 100 1 appl, Route: No Longer [facility] UNT/MG Topical TOP, PRN, Drug Active 2018 Medical Powder form: PWDR, [place] PRN For Fungal Prophylaxis, Start date: 10/26/18 7:45:00 CDT, Duration: 30 day, Stop date: 11/25/18 7:44:00 CDT, 0Notes: (Same as:Mycostatin, Nilstat) For external use only. Ativan 0.5 mg, 0.25 No Longer [facility] mL, Route: Active 2018 Medical IVP, Drug Center form: INJ, Q6H, kg, PRN Anxiety, Start date: 10/26/18 6:19:00 CDT, Duration: 30 day, Stop date: 11/25/18 6:18:00 CDT, 0Notes: (Same as: Ativan) Haldol 2.5 mg, 0.5 Inactive [facility] mL, Route: IV, 2018 Medical Drug form: [place] INJ, ONCE, kg, Start date: 10/26/18 6:11:00 CDT, Stop date: 10/26/18 6:11:00 CDT, 0Notes: (Same as: Haldol) Versed 5 mg, Route: Inactive [facility] IVP, ONCE, kg, 2018 Medical Start date: [place] 10/26/18 5:45:00 CDT, Stop date: 10/26/18 5:45:00 CDT Ativan 2 mg, Route: Inactive 10/26[facility] IVP, Drug 2019 Medical form: INJ, Center Q6H, kg, PRN Anxiety, Start date: 10/26/18 5:42:00 CDT, Duration: 30 day, Stop date: 11/25/18 5:41:00 CDT Ativan 2 mg, Route: Inactive 10/26[facility] PO, Drug form: 2019 Medical TAB, TID, kg, Center PRN Anxiety, Start date: 10/26/18 5:41:00 CDT, Duration: 30 day, Stop date: 11/25/18 5:40:00 CDT Saline Flush 0.9% 10 ml, Route: No Longer [facility] IVP, Drug Active 2019 Medical Form: INJ, kg, Center PRN, PRN Line Flush, Start date: 10/26/18 5:23:00 CDT, Duration: 30 day, Stop date: 11/25/18 5:22:00 CDT, 0Notes: (Same as: BD Posiflush) Haldol 2.5 mg, Route: Inactive 10/26[facility] IM, ONCE, kg, 2019 Medical Start date: [place] 10/26/18 4:21:00 CDT, Stop date: 10/26/18 4:21:00 CDT Haldol 5 mg, Route: Inactive 10/26[facility] IM, ONCE, kg, 2018 Medical Priority: [facility], Start date: 10/26/18 4:20:00 CDT, Stop date: 10/26/18 4:20:00 CDT Versed 3 mg, Route: Inactive 10/26[facility] IM, ONCE, kg, 2019 Medical Start date: [place] 10/26/18 4:20:00 CDT, Stop date: 10/26/18 4:20:00 CDT Versed 3 mg, Route: Inactive 10/26[facility] IVP, ONCE, kg, 2019 Medical Priority: [facility], Start date: 10/26/18 4:18:00 CDT, Stop date: 10/26/18 4:18:00 CDT Ketamine 30 mg, Route: Inactive 10/26[facility] IV, Drug form: 2019 Medical SOLN, ONCE, Center kg, Start date: 10/26/18 2:07:00 CDT, Stop date: 10/26/18 2:07:00 CDT, 0Notes: (Same as: keTALAR) Allergies, Adverse Reactions, Alerts Substance Category Reaction Severity Reaction Status Date Comments Source type Reported amoxicillin Assertion Drug Active [facility] Immunizations No Data Provided for This Section Results Order Name Results Value Reference Date Interpretation Comments Source Range HEMATOLOGY Basophils 0.6 0.0 - 1.0 11/[address] HEMATOLOGY Eosinophils 3.0 0.0 - 4.0 11/[address] HEMATOLOGY Monocytes 6.5 2.0 - 12.0 11/[address] HEMATOLOGY Lymphocytes 28.9 20.0 - 0708 [place] 40.0 [facility] HEMATOLOGY Monocytes # 0.7 0.0 - 0.8 11/[address] HEMATOLOGY Lymphocytes # 3.0 1.0 - 5.5 11/[address] HEMATOLOGY Neutrophils # 6.4 1.5 - 8.1 11/[address] HEMATOLOGY Basophils # 0.1 0.0 - 0.2 11/[address] HEMATOLOGY Eosinophils # 0.3 0.0 - 0.5 11/[address] HEMATOLOGY Segs 61.0 45.0 - 11/04 [place] 75.0 2019 [facility] HEMATOLOGY RBC 4.13 4.70 - 11/04 [place] 6.10 [facility] HEMATOLOGY WBC 10.4 3.7 - 10.4 11/[address] HEMATOLOGY MCHC 35.0 32.0 - 0708 [place] 36.0 2019 [facility] HEMATOLOGY Platelet 218 133 - 450 11/04 [facility]2018 [facility] HEMATOLOGY RDW 13.3 11.5 - 0708 [place] 14.5 /2019 [facility] HEMATOLOGY Hgb 12.5 14.0 - 0708 [place] 18.0 2019 [facility] HEMATOLOGY MPV 8.5 7.4 - 10.4 11/[address] HEMATOLOGY MCV 86.4 80.0 - 0708 [place] 94.0 /2019 [facility] HEMATOLOGY Hct 35.6 42.0 - 07/08 [place] 54.0 /2019 [facility] HEMATOLOGY MCH 30.2 27.0 - 07/08 [facility] 31.0 [facility] CHEM PANEL Phosphorus 5.4 2.5 - 4.5 07/ [facility] CHEM PANEL Magnesium Lvl 1.8 1.8 - 2.4 / [facility] CHEM PANEL eGFR 134 07/08 Result Comment: The Medical eGFR is Center calculated using the CKD-EPI formula. In most young, healthy individuals the eGFR will be >90 mL/min/1.73m2 . The eGFR declines with age. An eGFR of 60-89 may be normal in some populations, particularly the elderly, for whom the CKD-EPI formula has not been extensively validated. Use of the eGFR is not recommended in the following populations:< br/>
Carissa viduals with unstable creatinine concentration s, including patients and those with serious co-morbid conditions.<b r/>
Patie nts with extremes in muscle mass or diet.

The data above are obtained from the National Kidney Disease Education Program (NKDEP) which additionally recommends that when the eGFR is used in patients with extremes of body mass index for purposes of drug dosing, the eGFR should be multiplied by the estimated BMI. CHEM PANEL Calcium Lvl 8.1 8.5 - 10.5 11/04 [facility] CHEM PANEL Sodium Lvl 137 135 - 145 11/04 [facility] CHEM PANEL Potassium Lvl 4.8 3.5 - 5.1 11/04 Result Comment: [facility] Moderately Hemolyzed. CHEM PANEL Chloride Lvl 104 95 - 109 / [facility] CHEM PANEL CO2 25 24 - 32 07/ [facility] CHEM PANEL BUN 15 7 - 22 / [facility] CHEM PANEL Creatinine 0.65 0.50 - 07/ [facility] Lvl 1.40 /2018 [facility] CHEM PANEL Glucose Lvl 224 70 - 99 / [facility] CHEM PANEL AGAP 12.8 10.0 - 07 [facility] 20.0 [facility] PARATHYROID Ca Norm WB 1.05 1.05 - 11/04 [place] PROFILE . [facility] PARATHYROID Ca Ion WB 1.05 1.05 - 11/04 [place] PROFILE 1. [facility] CHEM PANEL Magnesium Lvl 1.8 1.8 - 2.4 11/[address] CHEM PANEL Phosphorus 4.2 2.5 - 4.5 11/[address] ELECTROLYTE AGAP 13.1 10.0 - 11/03 [facility] [place] [facility] 20.0 [facility] ELECTROLYTE eGFR 128 11/03 Result [facility] Comment: The Medical eGFR is Center calculated using the CKD-EPI formula. In most young, healthy individuals the eGFR will be >90 mL/min/1.73m2 . The eGFR declines with age. An eGFR of 60-89 may be normal in some populations, particularly the elderly, for whom the CKD-EPI formula has not been extensively validated. Use of the eGFR is not recommended in the following populations:< br/>
Carissa viduals with unstable creatinine concentration s, including patients and those with serious co-morbid conditions.<b r/>
Patie nts with extremes in muscle mass or diet.

The data above are obtained from the National Kidney Disease Education Program (NKDEP) which additionally recommends that when the eGFR is used in patients with extremes of body mass index for purposes of drug dosing, the eGFR should be multiplied by the estimated BMI. ELECTROLYTE Calcium Lvl 8.0 8.5 - 10.5 11/[address] ELECTROLYTE Chloride Lvl 111 95 - 109 11/03 47 [address] ELECTROLYTE CO2 21 24 - 32 11/[address] ELECTROLYTE BUN 10 7 - 22 11/[address] ELECTROLYTE Creatinine 0.72 0.50 - 11/03 [facility] Lvl 1.40 [facility] ELECTROLYTE Glucose Lvl 94 70 - 99 11/[address] ELECTROLYTE Sodium Lvl 142 135 - 145 11/[address] ELECTROLYTE Potassium Lvl 3.1 3.5 - 5.1 11/[address] HEMATOLOGY Eosinophils # 0.2 0.0 - 0.5 11/[address] HEMATOLOGY Basophils # 0.1 0.0 - 0.2 11/[address] HEMATOLOGY Lymphocytes 37.1 20.0 - 11/03 [facility] 40. [facility] HEMATOLOGY Monocytes 8.0 2.0 - 12.0 11/03 [facility] HEMATOLOGY Segs 51.3 45.0 - 11/03 [place] 75.0 /2019 [facility] HEMATOLOGY Monocytes # 0.7 0.0 - 0.8 11/03 [facility]2018 [facility] HEMATOLOGY Lymphocytes # 3.1 1.0 - 5.5 11/[address] HEMATOLOGY Eosinophils 2.7 0.0 - 4.0 11/03 [facility]2018 [facility] HEMATOLOGY Basophils 0.9 0.0 - 1.0 11/[address] HEMATOLOGY Neutrophils # 4.3 1.5 - 8.1 11/[address] HEMATOLOGY WBC 8.5 3.7 - 10.4 11/03 [facility]2018 [facility] HEMATOLOGY RBC 3.70 4.70 - 11/03 [place] 6.10 [facility] HEMATOLOGY Hgb 11.3 14.0 - 11/03 [facility] 18.0 [facility] HEMATOLOGY Hct 31.5 42.0 - 11/03 [facility] 54.0 [facility] HEMATOLOGY MPV 9.4 7.4 - 10.4 11/03 [facility] HEMATOLOGY RDW 12.9 11.5 - 11/03 [facility] 14.5 [facility] HEMATOLOGY Platelet 207 133 - 450 11/03 [facility]2018 [facility] HEMATOLOGY MCHC 35.9 32.0 - 11/03 [facility] 36.0 /2018 [facility] HEMATOLOGY MCH 30.5 27.0 - 11/03 [place] 31.0 [facility] HEMATOLOGY MCV 85.1 80.0 - 11/03 [place] 94.0 [facility] PARATHYROID Ca Norm WB 1.08 1.05 - 11/03 [facility] PROFILE . [facility] PARATHYROID Ca Ion WB 1.09 1.05 - 11/03 [facility] PROFILE 05.24 [facility] CHEM PANEL Phosphorus 4.1 2.5 - 4.5 11/02 [facility]2018 [facility] CHEM PANEL Magnesium Lvl 1.5 1.8 - 2.4 11/02 [facility]2018 [facility] CHEM PANEL eGFR 137 07/ [facility] Comment: The Medical eGFR is Center calculated using the CKD-EPI formula. In most young, healthy individuals the eGFR will be >90 mL/min/1.73m2 . The eGFR declines with age. An eGFR of 60-89 may be normal in some populations, particularly the elderly, for whom the CKD-EPI formula has not been extensively validated. Use of the eGFR is not recommended in the following populations:< br/>
Carissa viduals with unstable creatinine concentration s, including patients and those with serious co-morbid conditions.<b r/>
Patie nts with extremes in muscle mass or diet.

The data above are obtained from the National Kidney Disease Education Program (NKDEP) which additionally recommends that when the eGFR is used in patients with extremes of body mass index for purposes of drug dosing, the eGFR should be multiplied by the estimated BMI. CHEM PANEL Calcium Lvl 8.9 8.5 - 10.5 11/[address] CHEM PANEL CO2 20 24 - 32 11/[address] CHEM PANEL AGAP 14.0 10.0 - 07 [facility] 20.0 [facility] CHEM PANEL Creatinine 0.62 0.50 - 11/02 [facility] Lvl 1.40 [facility] CHEM PANEL BUN 7 7 - 22 11/[address] CHEM PANEL Potassium Lvl 3.0 3.5 - 5.1 11/02 Result Comment: [facility] Result(s) called to Gail Ellsworth at 11/02/2018 04:46 by stp. Read back OK. CHEM PANEL Sodium Lvl 143 135 - 145 11/[address] CHEM PANEL Chloride Lvl 112 95 - 109 11/[address] CHEM PANEL Glucose Lvl 98 70 - 99 11/[address] CHEM PANEL Lactic Acid 3.6 0.5 - 2.2 11/02 [facility] HEMATOLOGY Basophils # 0.1 0.0 - 0.2 11/[address] HEMATOLOGY Basophils 0.7 0.0 - 1.0 11/[address] HEMATOLOGY Eosinophils 3.5 0.0 - 4.0 / [address] HEMATOLOGY Neutrophils # 4.4 1.5 - 8.1 11/[address] HEMATOLOGY Monocytes 8.5 2.0 - 12.0 11/[address] HEMATOLOGY Lymphocytes 35.2 20.0 - 11/02 [place] 40.0 /2019 [facility] HEMATOLOGY Segs 52.1 45.0 - 11/02 [place] 75.0 /2019 [facility] HEMATOLOGY Eosinophils # 0.3 0.0 - 0.5 11/02 [facility] HEMATOLOGY Monocytes # 0.7 0.0 - 0.8 11/02 [facility] HEMATOLOGY Lymphocytes # 3.0 1.0 - 5.5 11/02 [facility] HEMATOLOGY MPV 8.7 7.4 - 10.4 11/02 [facility] HEMATOLOGY RDW 13.0 11.5 - 11/02 [place] 14.5 [facility] HEMATOLOGY Platelet 194 133 - 450 11/02 [facility] HEMATOLOGY MCV 85.8 80.0 - 11/02 [facility] 94.0 [facility] HEMATOLOGY MCH 31.1 27.0 - 11/02 [facility] 31.0 [facility] HEMATOLOGY MCHC 36.2 32.0 - 11/02 [facility] 36.0 [facility] HEMATOLOGY Hgb 12.2 14.0 - 11/02 [place] 18.0 [facility] HEMATOLOGY Hct 33.6 42.0 - 11/02 [place] 54.0 2019 [facility] HEMATOLOGY WBC 8.5 3.7 - 10.4 11/02 [facility] HEMATOLOGY RBC 3.92 4.70 - 11/02 [place] 6.10 [facility] PARATHYROID Ca Ion WB 1.15 1.05 - 11/02 [facility] PROFILE . [facility] PARATHYROID Ca Norm WB 1.11 1.05 - 11/02 [facility] PROFILE . [facility] CHEM PANEL Lactic Acid 4.7 0.5 - 2.2 11/02 Result [facility] Comment: Medical Critical Center Result(s) called to Gail Ellsworth at 11/01/2018 20:27 by AC. Read back OK. CHEM PANEL Lactic Acid 4.2 0.5 - 2.2 11/01 Result [facility] Comment: Medical Critical Center Result(s) called to [place] at 11/01/2018 12:05 by wx. Read back OK. TOXICOLOGY Vanco Tr 1.3 10/31 [facility] TOXICOLOGY Vanco Tr TND 0730 10/31 [facility] CHEM PANEL Pyruvic Acid 0.3 0.3 - 0.7 10/30 Result Comment: Medical
This Center test was developed and its performance characteristi cs
determ ined by [facility]. It has not been cleared or
approv ed by the Food and Drug Administratio n.
Perfor med At: [facility] [place]
[address], [place] [id number]< br/>Krishna Smiley MD Ph:[phone] URINE AND UA Sq Epi None Seen 10/30 [facility] URINE AND UA <1.0 0.1 - 1.0 10/30 [facility] Urobilinogen /2018 [facility] URINE AND UA Nitrite Negative Negative 10/30 [facility] (10/30/18 10:08 AM) [facility] URINE AND UA Mucus Few /LPF None Seen 10/30 [facility] STOOL /LPF /2018 [facility] URINE AND UA Bacteria Occasional None Seen 10/30 [facility] /HPF /HPF /2018 [facility] URINE AND UA Blood Moderate Negative 10/30 [facility] *ABN* /2018 [facility] (10/30/18 10:08 AM) [place] URINE AND UA Leuk Est Small Negative 10/30 [facility] *ABN* /2018 [facility] (10/30/18 10:08 AM) [place] URINE AND UA WBC 1 0 - 5 10/30 [facility] URINE AND UA RBC 1 0 - 2 10/30 [facility] URINE AND UA Spec Grav 1.005 <=1.030 10/30 [facility] [address] [place] [address] URINE AND UA pH 6.0 5.0 - 8.0 10/30 [facility] /2018 [facility] URINE AND UA Protein Negative Negative 10/30 [facility] mg/dL mg/dL [facility] URINE AND UA Bili Negative Negative 10/30 [facility] *NA* /2018 [facility] (10/30/18 10:08 AM) [place] URINE AND UA Turbidity Clear Clear 10/30 [facility] (10/30/18 10:08 AM) [facility] URINE AND UA Ketones Negative Negative 10/30 [facility] mg/dL mg/dL [facility] URINE AND UA Glucose Negative Negative 10/30 [facility] STOOL mg/dL mg/dL /2018 [facility] URINE AND UA Color Light Yellow Yellow 10/30 [facility] STOOL *NA* /2018 [facility] (10/30/18 10:08 AM) [place] CHEM PANEL Lipase Lvl 94 73 - 393 10/28 [facility] CHEM PANEL Amylase Lvl 59 25 - 115 10/28 [facility] IMMUNOLOGY HIV Ag/Ab 4th Negative Negative 10/28 [facility] Gen *NA* [facility] (10/28/18 4:04 PM) [place] URINE AND UA Nitrite Negative Negative 10/28 [facility] (10/28/18 2:06 PM) /2018 [facility] URINE AND UA Leuk Est Trace Negative 10/28 [facility] STOOL *ABN* [facility] (10/28/18 2:06 PM) [place] URINE AND UA Sq Epi None Seen Few 10/28 [facility] (10/28/18 2:06 PM) /2018 [facility] URINE AND UA Bili Negative Negative 10/28 [facility] STOOL *NA* /2018 [facility] (10/28/18 2:06 PM) [place] URINE AND UA Blood Negative Negative 10/28 [facility] (10/28/18 2:06 PM) /2018 [facility] URINE AND UA 0.2 0.1 - 1.0 10/28 [facility] Urobilinogen /2018 [facility] URINE AND UA Protein Negative Negative 10/28 [facility] (10/28/18 2:06 PM) /2018 [facility] URINE AND UA Glucose Negative Negative 10/28 [facility] (10/28/18 2:06 PM) /2018 [facility] URINE AND UA Ketones Negative Negative 10/28 [facility] STOOL *NA* /2018 [facility] (10/28/18 2:06 PM) [place] URINE AND UA Turbidity Clear Clear 10/28 [facility] (10/28/18 2:06 PM) /2018 [facility] URINE AND UA pH 5.5 5.0 - 8.0 10/28 [facility] /2018 [facility] URINE AND UA Spec Grav 1.010 <=1.030 10/28 [facility] URINE AND UA Color Yellow Yellow 10/28 [facility] STOOL *NA* /2018 [facility] (10/28/18 2:06 PM) [place] URINE AND UA RBC <1 0 - 2 10/28 [facility] /2018 [facility] URINE AND UA WBC 1 0 - 5 10/28 [facility] STOOL /2018 [facility] URINE AND UA Bacteria Occasional None Seen 10/28 [facility] STOOL /HPF /HPF /2018 [facility] URINE AND UA Mucus Few /LPF None Seen 10/28 [facility] STOOL /LPF /2018 [facility] DRUG SCREEN UDS Note See Note 10/26 [facility] (10/26/18 4:34 PM) /2018 [facility] DRUG SCREEN U Negative Negative 10/26 [facility] Phencyclidine *NA* Medical [facility]r (10/26/18 4:34 PM) Center DRUG SCREEN U Opiate Scr Negative Negative 10/26 [place] *NA* Medical (10/26/18 4:34 PM) Center DRUG SCREEN U Heather Scr Negative Negative 10/26 [place] *NA* [facility] (10/26/18 4:34 PM) Center DRUG SCREEN U Amph Scr Negative Negative 10/26 [place] *NA* [facility] (10/26/18 4:34 PM) Center DRUG SCREEN U Benzodiaz Positive Negative 10/26 [place] Scr *ABN* [facility] (10/26/18 4:34 PM) Center DRUG SCREEN U Cannab Scr Negative Negative 10/26 [place] *NA* Medical (10/26/18 4:34 PM) Center DRUG SCREEN U Cocaine Scr Negative Negative 10/26 [place] *NA* [facility] (10/26/18 4:34 PM) [place] URINE AND UA Glucose 50mg/dl 10/26 [facility] /2018 [facility] URINE AND UA Turbidity Clear Clear 10/26 [facility] (10/26/18 4:34 PM) [facility] URINE AND UA Spec Grav 1.026 <=1.030 10/26 [facility] STOOL /2018 [facility] URINE AND UA Color Yellow Yellow 10/26 [facility] STOOL *NA* [facility] (10/26/18 4:34 PM) [place] URINE AND UA Bili Negative Negative 10/26 [facility] STOOL *NA* [facility] (10/26/18 4:34 PM) [place] URINE AND UA Protein 100 mg/dL Negative 10/26 [facility] STOOL mg/dL [facility] URINE AND UA Ketones Negative Negative 10/26 [facility] STOOL mg/dL mg/dL [facility] URINE AND UA pH 5.0 5.0 - 8.0 10/26 [facility] STOOL /[address] [place] [address] URINE AND UA <1.0 0.1 - 1.0 10/26 [facility] Urobilinogen /2018 [facility] URINE AND UA Blood Negative Negative 10/26 [facility] STOOL (10/26/18 4:34 PM) /2018 [facility] URINE AND UA WBC <1 0 - 5 10/26 [facility] [address] [place] [address] URINE AND UA Nitrite Negative Negative 10/26 [facility] (10/26/18 4:34 PM) /2018 [facility] URINE AND UA Mucus Few /LPF None Seen 10/26 [facility] STOOL /LPF /2018 [facility] URINE AND UA Leuk Est Negative Negative 10/26 [facility] (10/26/18 4:34 PM) /2018 [facility] URINE AND UA Sq Epi None Seen 10/[address] URINE AND UA RBC 1 0 - 2 10/26 [facility] /[address] [place] [address] BACTERIAL - MRSA by PCR Negative 10/26 [facility] SEROLOGY (10/26/18 11:26 AM) [facility] CHEM PANEL Ammonia 39.0 <=45.0 10/26 [facility] uMol/L [facility] CHEM PANEL A/G Ratio 0.9 0.7 - 1.6 10/[address] CHEM PANEL Globulin 3.7 2.7 - 4.2 10/[address] CHEM PANEL Alk Phos 91 39 - 136 10/[address] CHEM PANEL Bili Total 0.3 0.2 - 1.3 10/[address] CHEM PANEL AST 25 0 - 37 10/[address] CHEM PANEL Bili Direct 0.1 0.0 - 0.3 10/[address] CHEM PANEL Bili Indirect 0.2 0.0 - 1.0 10/[address] CHEM PANEL ALT 28 0 - 65 10/[address] CHEM PANEL Albumin Lvl 3.5 3.5 - 5.0 10/[address] CHEM PANEL Total Protein 7.2 6.4 - 8.4 10/[address] CHEM PANEL Amylase Lvl 58 25 - 115 10/[address] CHEM PANEL Lipase Lvl 62 73 - 393 10/[address] CHEM PANEL A/G Ratio 1.0 0.7 - 1.6 10/[address] CHEM PANEL B/C Ratio 27 6 - 25 10/[address] CHEM PANEL Globulin 3.9 2.7 - 4.2 10/[address] CHEM PANEL ALT 30 0 - 65 10/[address] CHEM PANEL Bili Total 0.3 0.2 - 1.3 10/[address] CHEM PANEL Alk Phos 97 39 - 136 10/[address] CHEM PANEL Albumin Lvl 4.0 3.5 - 5.0 10/[address] CHEM PANEL AST 23 0 - 37 10/[address] CHEM PANEL Total Protein 7.9 6.4 - 8.4 10/[address] CHEM PANEL Bili Direct <0.1 0.0 - 0.3 10/[address] LIPIDS VLDL 24 10/26 [facility]2018 [facility] LIPIDS LDL 78 <=99 mg/dL 10/26 [facility] (Calculated) [facility] LIPIDS Trig 118 <=149 10/26 [facility] mg/dL [facility] LIPIDS HDL 34 >=61 mg/dL 10/[address] LIPIDS Chol 136 <=199 10/26 [facility] mg/dL [facility] LIPIDS CHD Risk 4.00 4.00 - 10/26 [facility] 7. [facility] SPECIAL Hgb A1C 5.4 <=5.6 % 10/26 [facility] Pathology Reports No Data Provided for This Section Diagnostic Reports Report Value Date Source Chest 1view DX EXAM: XR CHEST 1 VIEW 10/30/2018 [facility] DATE: 10/30/2018 7:03 T Center INDICATION: - Fever, with cough. TECHNIQUE: Chest 1 view FINDINGS: A single AP semierect view of the chest is submitted without a prior study for comparison. Heart is not enlarged. Mediastinal contours are unremarkable. The lungs are clear. Pulmonary vascularity is normal. No pleural effusions. The bones are unremarkable. IMPRESSION: The lungs are clear bilaterally and well-expanded. Brain wo contrast CT EXAM: CT BRAIN WITHOUT CONTRAST 10/26/2018 [facility] Medical DATE: 10/26/2018 2:22 T Center INDICATION: - ams recent esthela temp stroke, recently diagnosed with MELAS at [facility]. COMPARISON: Outside MRI brain 10/22/2018, 10/20/2018. Outside CT brain without contrast 10/18/2018. Outside CTA had and neck 10/20/2018. TECHNIQUE: Routine axial images of the brain were obtained without contrast.Coronal and sagittal reformatted images. IV contrast: None. FINDINGS: Evolving areas of hypodensity and loss of longo-white differentiation consistent with subacute infarction involving the bilateral temporal lobes and right greater than left parietal lobes. Subtle areas o f increased density in the involved cortices in the right greater than left temporal lobes may represent areas of residual cortex and/ or superimposed evolving petechial hemorrhage. Associated effacemen t of contiguous sulci. No midline shift. The basal cisterns remain patent. The ventricles are normal in size. Chronic lacunar infarcts in the bilateral thalami. Smaller rounded hypodensity projecting ov er the right posterior cerebellar hemisphere may be in part due to artifact when compared to prior exams. IMPRESSION: 1. Subacute infarction involving bilateral temporal lobes and to a lesser extent extending into the right greater than left contiguous parietal lobes. Areas of curvilinear increased density in the righ t greater than left temporal lobes may represent areas of residual cortex versus evolving petechial hemorrhage. 2. Chronic infarcts in the bilateral thalami. Above findings were communicated via telephone with Dr. Coronel (ED) at 0255 hours on 10/26/[address] Vernon. [place] SECTION: Neuro Consultation Notes No Data Provided for This Section Discharge Summaries No Data Provided for This Section History and Physicals No Data Provided for This Section Vital Signs Vital Sign Value Date Comments Source Systolic (mm Hg) 113 11/05/2018 [facility] Diastolic (mm Hg) 76 11/05/2018 [facility] Respitory Rate 18 11/05/2018 [facility] Heart Rate 81 11/05/2018 [facility] Temperature Oral (F) 98.6 F 11/05/2018 [facility] Heart Rate 101 11/05/2018 [facility] Temperature Oral (F) 98.9 F 11/05/2018 [facility] Heart Rate 111 11/05/2018 [facility] Respitory Rate 18 11/05/2018 [facility] Systolic (mm Hg) 116 11/05/2018 [facility] Diastolic (mm Hg) 73 11/05/2018 [facility] Temperature Oral (F) 98.8 F 11/05/2018 [facility] Respitory Rate 18 11/05/2018 [facility] Systolic (mm Hg) 111 11/05/2018 [facility] Diastolic (mm Hg) 66 11/05/2018 [facility] Height 172.72 cm 10/30/2018 [facility] Weight 50 10/30/2018 [facility] Weight 50 10/27/2018 [facility] BMI Calculated 16.76 10/27/2018 [facility] Height 172.72 cm 10/27/2018 [facility] Weight 45.455 10/26/2018 [facility] BMI Calculated 16.17 10/26/2018 [facility] Height 167.64 cm 10/26/2018 [facility] Encounters Location Location Encounter Encounter Reason Attending ADM DC Status Source Details Type Number For Provider Date Date Visit [facility] [id number] Marcela 10/26 11/06 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) Unspecified convulsions (R56.9) Toxic encephalopathy (G92) Discharge Diagnosis: Diagnoses This Visit (E88.41) (I63.9) Ischemicstroke(I63.9) MELAS(mitochondrialencephalopathy,lacticacidosisandstroke-likeepisodes)(E88.41 ) Seizure(R56.9) Toxicmetabolicencephalopathy(G92) Consults Obtained: Lisha Morales MD; Josep Taylor MD; Wang Perkins MD; Yamil Jimenez MD; Delmy Goel MD Hospital Course: Jorge is a 28 year old male recently diagnosed with MELAS at [facility] (discharged on 10/23) presenting with worsening cognition and increased agitation On 10/17 he was taken [facility] for b/l hearing loss. He was initially diagnosed with a sinus infection and was prescribed ABX and subsequently discharged home. The following day, his sister noticed that his cognition and began "spacing out&quot ; worsened and was [facility] where he was then [facility] to [facility] for higher level of care. Upon arrival CT Brain was obtained and revealed symmetric restricted diffusion in the bila teral anterolateral temporal lobes with underlying subcortical white matter involvement and gyral swelling, strongly suggestive of acute infarcts related to MELAS. An MRI obtained on the following day r evealed increased lactate in the longo matter and deep white matter of bilateral temporal parietal-lobes likely representing anaerobic metabolism given recent ischemic changes He was admitted to the neur ology unit where he received IV arginine x 4 days and discharged with CoQ10, Citrulline, Arginine, and atorvastatin. Per sister, the patient has been noncompliant with his medications. After discharge, the patient was slightly agitated, but tolerable. Today, the patient's cognition worsened and began processing information even slower than his baseline, appearing very spaced out with episodes nedra ppropriate laughter. His agitation seemed to worsen as the day progressed becoming very violent and destructive at home. The family decided to bring the patient to the ED thereafter. In the ED his agita tion heightened and he began fighting with the ER staff. He was given several doses of versed, haldol x1, ketamine x1 and placed on restraints. Of note, previous members in his family were diagnosed with MELAS including Mother and Maternal GM, Maternal aunt and uncles. Also, his sister reports that atorvastatin was also prescribed to his mother which reportedly interacted with the medications she was taking for MELAS. Hospital Course: 10/26: admitted to ICU, required restraints and sedatives to calm down. EEG started. Consulted Dr. Morales. Started Arginine and Dextrose, as well as Keppra. 10/27: Remained agitated overnight. Required ziprasidone. 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 He was agitated thus brought back to us. It's unclear if he has any new infarcts but even so a repeat MRI would not change the management. An underlying encephalitis is less likely as his exam is not consistent with that. Both tests will require general anaesthesia and sedation which may hav e a negative impact on his progress. Continue arginine for now, consult psychiatry and will discuss further with , mitochondrial diseases specialist. We will switch to Vimpat given the agitation which Keppra may contribute to. 10/30: Mr. Calvillo was agitated again yesterday but better now on a regimen recommended by psychiatry. He had fever overnight with leukocytosis but normothermic now, on abx, could be a UTI. We will reac h a conclusion with whether to proceed with repeat LP and MRI. 10/31: Mr. Calvillo is unchanged neurologically. His aggression is fairly well controlled. There has been a discussion with his family and in regards to goals of care given his prolonged illnes s and family experience with prior members. His sister expressed an interest in discussing those with palliative care. to have a discussion with the family next week. Any diagnostic testing is on hold for now. 11/01: Mr. Calvillo is much less agitated, on Zyprexa, cooperative with PT/OT, off mittens but still requiring restrains. Afebrile, lactate stable. Family meeting to discuss goals of care on Sunday. 11/02: Mr. Calvillo is off restrains, less agitated, transferred to the floor and doing ok, psychiatry titrating his Zyprexa, EKG did not show prolonged QT. Family meeting remains on Sunday. 11/03: Mr. Calvillo is doing fairly well, no acute events overnight, psychiatry following, family meeting tomorrow. 11/04: Mr. Calvillo is unchanged since yesterday, not agitated the last few days for me. Family meeting today at 2 pm. GOC meeting was held. Discharge Physical Examination: Vitals Tmp(F) Pulse BP RR SpO2 FIO2 11/05 04:30 98.8 63 107/62 18 100 --- 11/04 23:45 97.0 75 117/65 18 98 --- 11/04 19:39 98.4 84 122/73 18 100 --- 11/04 17:13 99 91 108/71 18 100 --- 11/04 11:30 98.7 89 95/60 18 99 --- 24 Hr Tmax: 99F (37.22c) at 11/04 17:13 Vital Signs are the last 5 in the past 48 hours. GENERAL: Alert, somewhat restless HEENT: normocephalic and atraumatic. LUNGS: clear to auscultation bilaterally. CV: no murmur, equal pulses bilaterally. ABDOMEN: soft, non-tender, non-distended, normoactive bowel sounds. NEUROLOGY: Alert, restless Speech: Fluent APhasia Cranial Nerves: pupils round and reactive to light bilaterally, no gaze deviation, EOMI, no facial droop. Motor: - Tone: normal. - Power: 5/5 in all groups of muscles in all four limbs. Sensory: -Withdraws to pain in all extremities Cerebellar signs: unable to assess. Gait: Normal Record of Patient's Work-up: Labs (Last four charted values) WBC 10.4 (NOV 04) 8.5 (NOV 03) 8.5 (NOV 02) 9.8 (NOV 01) Hgb L 12.5 (NOV 04) L 11.3 (NOV 03) L 12.2 ( NOV 02) L 12.6 (NOV 01) Hct L 35.6 (NOV 04) L 31.5 (NOV 03) L 33.6 ( NOV 02) L 34.6 (NOV 01) Plt 218 (NOV 04) 207 (NOV 03) 194 (NOV 02) 213 (NOV 01) Na 137 (NOV 04) 142 (NOV 03) 143 (NOV 02) 142 (NOV 01) K 4.8 (NOV 04) L 3.1 (NOV 03) C 3.0 (NOV 02) L 3.4 (NOV 01) CO2 25 (NOV 04) L 21 (NOV 03) L 20 (NOV 02) L 21 (NOV 01) Cl 104 (NOV 04) H 111 (NOV 03) H 112 (NOV 02) H 111 (NOV 01) Cr 0.65 (NOV 04) 0.72 (NOV 03) 0.62 (NOV 02 ) 0.69 (NOV 01) BUN 15 (NOV 04) 10 (NOV 03) 7 (OCT 06) 7 (NOV 01) Glucose Random H 224 (NOV 04) 94 (OCT 07) 98 (NOV 02) H 106 (OCT 05) Mg 1.8 (NOV 04) 1.8 (NOV 03) L 1.5 (NOV 02 ) 1.8 (NOV 01) Phos H 5.4 (NOV 04) 4.2 (NOV 03) 4.1 (NOV 02 ) 4.2 (NOV 01) Ca L 8.1 (NOV 04) L 8.0 (NOV 03) 8.9 (NOV 02) 8.8 (NOV 01) Hgb A1C: 5.4 % (10/26/18 05:46:00) Alk Phos: 91 unit/L (10/26/18 11:26:00) A/G Ratio: 0.9 (10/26/18 11:26:00) ALT: 28 unit/L (10/26/18:26:00) Albumin Lvl: 3.5 g/dL (10/26/18:26:00) Bili Direct: 0.1 mg/dL (10/26/18:26:00) Bili Indirect: 0.2 mg/dL (10/26/18::) Bili Total: 0.3 mg/dL (10/26/18::00) Total Protein: 7.2 g/dL (10/26/18:26:00) Globulin: 3.7 g/dL (10/26/18:26:00) AST: 25 unit/L (10/26/18:26:00) No qualifying data available. Imaging Studies (last 36 hours) (none) Discharge Medications: OLANZapine: 5 mg,1 tab,PO,PRN,PRN (Other -See Comment),PRN Q12 arginine: 5,000 mg,10 cap,PO,TID lacosamide: 50 mg,1 tab,PO,BID melatonin: 6 mg,2 tab,PO,Bedtime,PRN (Sleep) ubiquinone: 400 mg,2 cap,PO,Daily Disposition: ED Admitted Follow up: Follow Up With Dr. Morales, Call for appointment, within: 5 Weeks, reason: Follow Up On Treatment Discharge Instructions: Please notify your physician if any of the following occur: Bleeding, Fever, Nausea, Pain, Shortness of breath, Signs of infection, Swelling Other Information Special Home Care Instructions: Stroke DC instructions: You were admitted to the [place] Stroke service at [facility] in the [facility]. You were admitted for MELAS Crisis. Discharge Medications arginine 500 mg oral capsule 5,000 mg=10 cap, PO, TID lacosamide 50 mg oral tablet 50 mg=1 tab, PO, BID melatonin 3 mg oral tablet 6 mg=2 tab, PRN, PO, Bedtime OLANZapine 5 mg oral tablet 5 mg=1 tab, PRN, PO, PRN ubiquinone 200 mg oral capsule 400 mg=2 cap, PO, Daily Follow-up appointments: - Please Follow Up with Dr. Morales on January 06 2019 at 2:30 PM Please call our nurse navigator Santa ([phone]) with any questions after discharge. Please take your discharge paperwork with you to your follow- up appointments. Returning back to work/school will be addressed at your follow- up appointment. Stroke clinic address: [facility] St[facility]rology [address] , [address] [place] [address] Extracted from:Title: Stroke Progress Note Author: Darrni Berrios MD Date: 11/05/18 Stroke Team Progress Note Name: Jorge Calvillo Admission Date: 10/26/2018 Brief H&P: Jorge is a 28 year old male recently diagnosed with MELAS at [facility] (discharged on 10/23) presenting with worsening cognition and increased agitation On 10/17 he was taken [facility] ER for b/l hearing loss. He was initially diagnosed with a sinus infection and was prescribed ABX and subsequently discharged home. The following day, his sister noticed that his cognition and began "spacing out&quot ; worsened and was taken [facility] where he was then transferred to [facility] for higher level of care. Upon arrival CT Brain was obtained and revealed symmetric restricted diffusion in the bila teral anterolateral temporal lobes with underlying subcortical white matter involvement and gyral swelling, strongly suggestive of acute infarcts related to MELAS. An MRI obtained on the following day r evealed increased lactate in the longo matter and deep white matter of bilateral temporal parietal-lobes likely representing anaerobic metabolism given recent ischemic changes He was admitted to the neur ology unit where he received IV arginine x 4 days and discharged with CoQ10, Citrulline, Arginine, and atorvastatin. Per sister, the patient has been noncompliant with his medications. After discharge, the patient was slightly agitated, but tolerable. Today, the patient's cognition worsened and began processing information even slower than his baseline, appearing very spaced out with episodes nedra ppropriate laughter. His agitation seemed to worsen as the day progressed becoming very violent and destructive at home. The family decided to bring the patient to the ED thereafter. In the ED his agita tion heightened and he began fighting with the ER staff. He was given several doses of versed, haldol x1, ketamine x1 and placed on restraints. Of note, previous members in his family were diagnosed with MELAS including Mother and Maternal GM, Maternal aunt and uncles. Also, his sister reports that atorvastatin was also prescribed to his mother which reportedly interacted with the medications she was taking for MELAS. Overnight Events: No acute events overnight. Zyprexa is weaned off. Agitation overall stable, not requiring restraints continuously. Hospital Course: 10/26: admitted to ICU, required restraints and sedatives to calm down. EEG started. Consulted Dr. Morales. Started Arginine and Dextrose, as well as Keppra. 10/27: Remained agitated overnight. Required ziprasidone. 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 He was agitated thus brought back to us. It's unclear if he has any new infarcts but even so a repeat MRI would not change the management. An underlying encephalitis is less likely as his exam is not consistent with that. Both tests will require general anaesthesia and sedation which may hav e a negative impact on his progress. Continue arginine for now, consult psychiatry and will discuss further with , mitochondrial diseases specialist. We will switch to Vimpat given the agitation which Keppra may contribute to. 10/30: Mr. Calvillo was agitated again yesterday but better now on a regimen recommended by psychiatry. He had fever overnight with leukocytosis but normothermic now, on abx, could be a UTI. We will reac h a conclusion with whether to proceed with repeat LP and MRI. 10/31: Mr. Calvillo is unchanged neurologically. His aggression is fairly well controlled. There has been a discussion with his family and in regards to goals of care given his prolonged illnes s and family experience with prior members. His sister expressed an interest in discussing those with palliative care. to have a discussion with the family next week. Any diagnostic testing is on hold for now. 11/01: Mr. Calvillo is much less agitated, on Zyprexa, cooperative with PT/OT, off mittens but still requiring restrains. Afebrile, lactate stable. Family meeting to discuss goals of care on Sunday. 11/02: Mr. aClvillo is off restrains, less agitated, transferred to the floor and doing ok, psychiatry titrating his Zyprexa, EKG did not show prolonged QT. Family meeting remains on Sunday. 11/03: Mr. Calvillo is doing fairly well, no acute events overnight, psychiatry following, family meeting tomorrow. 11/04: Mr. Calvillo is unchanged since yesterday, not agitated the last few days for me. Family meeting today at 2 pm. GOC meeting was held. ROS Unable to obtain because patient is encephalopathic. Physical Exam: Vitals Tmp(F) Pulse BP RR SpO2 FIO2 11/05 04:30 98.8 63 107/62 18 100 --- 11/04 23:45 97.0 75 117/65 18 98 --- 11/04 19:39 98.4 84 122/73 18 100 --- 11/04 17:13 99 91 108/71 18 100 --- 11/04 11:30 98.7 89 95/60 18 99 --- 24 Hr Tmax: 99F (37.22c) at 11/04 17:13 Vital Signs are the last 5 in the past 48 hours. GENERAL: Alert, somewhat restless HEENT: normocephalic and atraumatic. LUNGS: clear to auscultation bilaterally. CV: no murmur, equal pulses bilaterally. ABDOMEN: soft, non-tender, non-distended, normoactive bowel sounds. NEUROLOGY: Alert, restless Speech: Not dysarthric. Cranial Nerves: pupils round and reactive to light bilaterally, no gaze deviation, EOMI, no facial droop. Motor: - Tone: normal. - Power: 5/5 in all groups of muscles in all four limbs. Sensory: -Withdraws to pain in all extremities Cerebellar signs: unable to assess. Gait: deferred (fall risk). Medications: Scheduled Meds (5): 10/30/18 arginine (L-Arginine) 5,000 mg PO TID 10/31/18 dronabinol (Marinol) 10 mg PO BID 07/03/19 lacosamide (Vimpat) 50 mg PO BID 10/26/18 sodium chloride (Saline Flush 0.9%) 10 ml IVP Q12H 10/26/18 ubiquinone 400 mg PO Daily Continuous Infusions (1): 10/28/18 Dextrose 10% in Water IV 980.75 mL + sodium chloride 77 mEq (D10W 980.75 mL + sodium chloride 23.4% IV 77 mEq) 980.75 mL 200 ml/hr Labs (Last four charted values) WBC 8.5 (NOV 03) 8.5 (NOV 02) 9.8 (NOV 01) H 12.1 (OCT 31) Hgb L 11.3 (NOV 03) L 12.2 (NOV 02) L 12.6 ( NOV 01) L 13.5 (OCT 31) Hct L 31.5 (NOV 03) L 33.6 (NOV 02) L 34.6 ( NOV 01) L 38.5 (OCT 31) Plt 207 (NOV 03) 194 (NOV 02) 213 (NOV 01) 204 (OCT 31) Na 143 (NOV 02) 142 (NOV 01) 140 (OCT 31) 138 (OCT 30) K C 3.0 (NOV 02) L 3.4 (NOV 01) L 3.3 ( OCT 31) L 3.1 (OCT 30) CO2 L 20 (NOV 02) L 21 (NOV 01) L 20 (OCT 31 ) L 18 (OCT 30) Cl H 112 (NOV 02) H 111 (NOV 01) 108 (OCT 31) 107 (OCT 30) Cr 0.62 (NOV 02) 0.69 (NOV 01) 0.54 (OCT 31 ) 0.82 (OCT 30) BUN 7 (NOV 02) 7 (NOV 01) L 5 (OCT 31) L 4 (OCT 30) Glucose Random 98 (NOV 02) H 106 (NOV 01) H 136 (OCT 31 ) H 164 (OCT 30) Mg L 1.5 (NOV 02) 1.8 (NOV 01) L 1.6 (OCT 31) L 1.4 (OCT 30) Phos 4.1 (NOV 02) 4.2 (NOV 01) 3.6 (OCT 31) 2.7 (OCT 30) Ca 8.9 (NOV 02) 8.8 (NOV 01) 9.1 (OCT 31) 9.0 (OCT 30) Imaging Studies: Brain wo contrast CT (10/26/2018): 1. Subacute infarction involving bilateral temporal lobes and to a lesser extent extending into the right greater than left contiguous parietal lobes. Areas of curvilinear increased density in the righ t greater than left temporal lobes may represent areas of residual cortex versus evolving petechial hemorrhage. 2. Chronic infarcts in the bilateral thalami. TTE: 1) Left ventricular structure and function is normal. 2) The overall estimated ejection fraction is 55 - 60%. 3) Mitral valve structure and function and left atrial structure are normal. 4) There is trace mitral regurgitation. 5) Aortic valve structure and function and the ascending aorta are normal. 6) There is no hemodynamic abnormality noted across the aortic valve. 7) Right ventricular size, structure and funciton, tricuspid valve structure and function and right atrial structure are normal. 8) There is trace tricuspid regurgitation with normal estimated right sided pressures. 9) The pericardium is normal. 10) There is no evidence of a shunt at the level of the interatrial septum by agitated saline contrast injection either at rest or with a maneuvers. 11) There is no previous study for comparison. CSF Studies Done at [facility] (10/20/2018) Gl 56, P 76, WBC 3 ( 2 lymp, 1 macro), RBC 1 NMDA- Negative LDH- 124 LA- 3.9 Beta 2 micro- 1/1 OLVIN- 0.7 EBV - Negative VDRL- Negative VDRL- Non-reactive CMV- Negative Listeria- Negative Neisseria-Negative HSV- Negative VZV- Negative Crypto- Negative AFB-Negative Gram- occasional Mononuclear Cells, No org ASSESSMENT/PLAN: Jorge is a 28 year old male recently diagnosed with MELAS at [facility] (discharged on 10/23) presenting with worsening cognition and increased agitation. Stroke risk factors include MELAS. PE: shows no new focal neurological deficits. (Unable to test the patient's hearing as he was very sedated). Brain CT shows subacute infarction involving bilatera l temporal regions with few bilateral scattered hyperdensities, suggestive of hemorrhagic conversions. Small focal hypodensity in bilateral cerebellum without associated surrounding edema, favoring chronic infarction in nature. 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 MELAS B/L Hearing loss Possible seizures causing worsening cognition and agitation Acute Ischemic Stroke (non-tPA): - Hold Aspirin - CTH shows slight progression of right frontoparietal infarct. Pending MRI MRA , might need sedation. - ECHO - Switched IVF to Dextrose. - Keppra initiated due to possible seizures causing AMS. - IV Arginine initiated, patient was not compliant with oral prescription. - Check pancreatic enzymes and ammonia. - Dr. Morales was contacted about the case. - Continue Arginine and Ubiquinone Metabolic encephalopathy - Correct all metabolic derangements. RESPIRATORY - On room air, continue to monitor. CARDIOVASCULAR Hyperlipidemia - Hold Atorvastatin- may reduces levels of CoQ10 and strokes occured due to metabolic etiology. FEN/GI - No concerns for dysphagia - Diet resumed but poor PO intake Psych - Was on Zyprexa 5mg PO BID, now weaning to 2.5mg BID and then stopping on PM - Continue Zyprexa 2.5mg IM q4h PRN, not to exceed 4 doses per day Prophylaxis DVT: MADIHA, SCD. GI: Famotidine. Bowel: Docusate. Rehab Services PT/OT/ST: Awaiting [facility] ([address] [place] [address]) versus home with HH and family training for close supervision. DVT ppx: SCDs Diet: Regular Diet Code Status: Full Code. Disposition:? Darrin Berrios MD, MPH Neurology Resident PGY-3 [facility] Addendum by Marcela Diaz MD on 11/05/2018 21:21 STROKE STAFF I have personally evaluated the patient. i have reviewed the resident 's note detailed above. I agree with the resident's findings, assessment and plan as outlined in the note except as detailed below. Extracted from:Title: Supportive Medicine Consult Note Author: Chey Austin MD Date: 10/30/18 Jorge Calvillo is a 28 year old male recently diagnosed with MELAS at [facility] presenting with worsening cognition and increased agitation, as well as b/l hearing loss and 3rd stroke in last two weeks. Supp ortive medicine consulted for GOCandassistance with placement. #Anorexia - patient not eating meals, refusing food, has only had half a gatorade so far today according to nurse and family at bedside - if concern forearly satiety, can try reglan QAC and HS - depending on GOC, may require NG tube in the future if he continues to not eat but still wants full care #slow transit constipation - no BM since admission - recommend senna/miralax titrated to BM every 1-2 days #GOC/advanced care planning - pending family meeting on Sunday/Sunday with Dr. Morales - Full code for now, will need to reach out to SW/[facility] to try and get in touch with patient's father in long term - if he is unreachable, decision makers would be patient's two sisters ATTENDING ATTESTATION I have personally interviewed and examined this patient with the resident, Dr. Austin on 10/30. I agree with the exam and plans documented in the resident's note above. I have personally reviewed the patient's pertinent labs and radiology results. Patient does not respond to any questions. Sister at bedside reports hehas not been eating and hasn't had any BMs either. He has been restless andagitated.They do not have the ability to care for p atient at home and would like assistance with discussingwhere he can go from here. On review, patient's father in long term is the legal surrogate, if he is reasonably available. We willsee if chaplainscan assist in getting hold of him. Otherwise sisters would be NOK. We have discussed the patient with primary team physician. Thank you for the opportunity to participate in this patient's care. We will follow along with you. [place] Supportive Medicine Pager:#[phone](24 hours / 7 days) Extracted from:Title: Stroke Team H&P Author: Vince Johnson MD Date: 10/26/18 [place]-STROKE HISTORY AND PHYSICAL Attending of Record: Dr. Diaz Patient Name: Jorge Calvillo Date of Admission: 10/26/2018 Chief Complaint: Worsening Cognition and agitation HPI: Jorge is a 28 year old male recently diagnosed with MELAS at [facility] (discharged on 10/23) presenting with worsening cognition and increased agitation On 10/17 he was taken [facility] ER for b/l hearing loss. He was initially diagnosed with a sinus infection and was prescribed ABX and subsequently discharged home. The following day, his sister noticed that his cognition and began "spacing out&quot ; worsened and was taken [facility] where he was then transferred to [facility] for higher level of care. Upon arrival CT Brain was obtained and revealed symmetric restricted diffusion in the bila teral anterolateral temporal lobes with underlying subcortical white matter involvement and gyral swelling, strongly suggestive of acute infarcts related to MELAS. An MRI obtained on the following day r evealed increased lactate in the longo matter and deep white matter of bilateral temporal parietal-lobes likely representing anaerobic metabolism given recent ischemic changes He was admitted to the neur ology unit where he received IV arginine x 4 days and discharged with CoQ10, Citrulline, Arginine, and atorvastatin. Per sister, the patient has been noncompliant with his medications. After discharge, the patient was slightly agitated, but tolerable. Today, the patient's cognition worsened and began processing information even slower than his baseline, appearing very spaced out with episodes nedra ppropriate laughter. His agitation seemed to worsen as the day progressed becoming very violent and destructive at home. The family decided to bring the patient to the ED thereafter. In the ED his agita tion heightened and he began fighting with the ER staff. He was given several doses of versed, haldol x1, ketamine x1 and placed on restraints. Of note, previous members in his family were diagnosed with MELAS including Mother and Maternal GM, Maternal aunt and uncles. Also, his sister reports that atorvastatin was also prescribed to his mother which reportedly interacted with the medications she was taking for MELAS. LSN at 10/24/18 in the morning (unsure of what time per sister). At baseline, unable to hear, mildly agitated. On arrival, BP is 108/59, GCS 13, and NIHSS score was unable to be calculated Review of Systems: unable to assess due to patient's mental status. Past Medical History: MELAS Past Surgical History: None Family Hx: Mother: MELAS, DM Maternal GM, Aunt and Uncle: Melas with several strokes (3/4 all ). Social History: Lives with sister, Works at a [employer], history of synthetic marijuana. Allergies: Amoxicillin Immunizations: up to date Home Medications: CoQ10 400mg daily Citrulline 5g TID Arginine 5000mg TID Atorvastatin 10mg daily Physical Exam: Vitals Tmp(F) Tmp(C) Ttype BP MAP Pulse RR SpO2 FIO2 ETCO2 10/26 04:03 ---- ---- ---- 126/75 96 91 18 100 --- --- 10/26 03:43 97.6 36.44 axil 113/63 82 74 18 100 --- --- 10/26 03:20 ---- ---- ---- 110/61 80 74 17 100 --- --- 10/26 03:00 ---- ---- ---- 108/59 80 83 17 99 --- --- 10/26 02:37 ---- ---- ---- 109/57 78 104 19 98 --- --- 24 Hr Tmax: 97.6F (36.44c) at 10/26 03:43 Vital Signs are the last 5 in the past 48 hours. 24 Hr Tmin: 97.6F (36.44c) at 10/26 03:43 Weights are the last 5 in 60 days, plus initial. Date Wt(kg) Wt(lb) Ht(cm) Ht(in) Method BMI BSA (no weights recorded) (no point of care glucose results charted in last 24 hours) Most Recent Scores: 10/26/18 [place] Coma Score 13 Lines, Tubes, and Drains: 10/26/2018 02:38 Peripheral Lines: Forearm Left 18 gauge Over the needle catheter (no surgical procedures documented) GENERAL: sedated, drowsy HEENT: normocephalic and atraumatic. LUNGS: clear to auscultation bilaterally. CV: no murmur, equal pulses bilaterally. ABDOMEN: soft, non-tender, non-distended, normoactive bowel sounds. NEUROLOGY: Sedated and drowsy, responds to pain Speech: Unable to assess Cranial Nerves: pupils round and reactive to light bilaterally, no gaze deviation, EOMI, no facial droop. Motor: - Tone: normal. - Power: 5/5 in all groups of muscles in all four limbs. Sensory: -Withdraws to pain in all extremities Cerebellar signs: unable to assess. Gait: deferred (fall risk). NIH score could not be calculated as patient was sedated with several medications in the ED PREMORBID MRS 2 - Slight disability - UNABLE to perform all activities but does not need assistance. DIAGNOSTIC TESTS: EKG: pending. CT head: pending. CTA Head and Neck: pending. MRI brain: pending. 2D Echo: pending. LDL: pending. HbA1C: pending. LABS: (no lab data in past 24 hours) Assessment: Jorge is a 28 year old male recently diagnosed with MELAS at [facility] (discharged on 10/23) presenting with worsening cognition and increased agitation Stroke risk factors include MELAS. PE: shows no new focal neurological deficits. (Unable to test the patient's hearing as he was very sedated). Brain CT shows subacute infarction involving bilatera l temporal regions with few bilateral scattered hyperdensities, suggestive of hemorrhagic conversions. Small focal hypodensity in bilateral cerebellum without associated surrounding edema, favoring chronic infarction in nature. 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 MELAS B/L Hearing loss Possible seizures causing worsening cognition and agitation Acute Ischemic Stroke (non-tPA): - Hold Aspirin - Brain MRI/MRA - ECHO - NS at 75 cc/hr. - STAT EEG - Consider Starting Keppra- Hold Depakote as it can cause mitochondrial dysfunction - Contact Dr. Morales in the morning for further instructions on management. Metabolic encephalopathy - Correct all metabolic derangements. RESPIRATORY - On room air, continue to monitor. CARDIOVASCULAR Hyperlipidemia - Hold Atorvastatin- may reduces levels of CoQ10 - Restart home statin. FEN/GI - No concerns for dysphagia - Remain NPO as patient is agitated. - Advance diet as tolerated. Psych -s/p Versed, haldol, ketamine -Ativan 0.5 to 1mg PRN agitation -4 extremity restrains Prophylaxis DVT: MADIHA, SCD. GI: Famotidine. Bowel: Docusate. Rehab Services PT/OT/ST: pending. Diet: NPO until agitation is resolved Code Status: Full Code. 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 i have reviewed the resident 's note detailed above. I agree with the resident's findings, assessment and plan as outlined in the note except as detailed below. 10/26: newly diagnosed MELAS with worsening mental status; pt was not compliant with oral arginine. i beleive that his CT demonstrates slight progression of infarct in the right frontal parietal lobe. no HT, i suspect this is just salvaged cortex. AMS concerning for possible subclinical sz. will start IV arginine, treat empirically for seizure with keppra, check ammonia and eval for pancreatitis. ivy d get IVF with D10 and follow lactate level. patient's next of kin are his siblings. mom is and dad is not around- need to FU with social work. statin is not indicated as the mechanism of stroke is metabolic. Medications (19) Active Scheduled Meds (4): 10/26/18 arginine (L-Arginine) 5,000 mg PO TID 10/26/18 sodium chloride (Saline Flush 0.9%) 10 ml IVP Q12H 10/26/18 sodium chloride (Saline Flush 0.9%) 10 ml IVP Q12H 10/26/18 ubiquinone 400 mg PO Daily Unscheduled Meds: None PRN Meds (4): 10/26/18 LORazepam (Ativan) 0.5 mg IVP Q6H 10/26/18 nystatin topical (nystatin topical 100,000 units/g powder) 1 appl TOP PRN 10/26/18 sodium chloride (Saline Flush 0.9%) 10 ml IVP PRN 10/26/18 sodium chloride (Saline Flush 0.9%) 10 ml IVP PRN One Time Meds (10): 10/26/18 (Completed) haloperidol (Haldol) 5 mg IM ONCE 10/26/18 (Completed) haloperidol (Haldol) 2.5 mg IM ONCE 10/26/18 (Completed) haloperidol (Haldol) 2.5 mg IV ONCE 10/26/18 (Completed) ketAMINE 30 mg IV ONCE 10/26/18 (Discontinued) midazolam (Versed) 3 mg IVP ONCE 10/26/18 (Discontinued) midazolam (Versed) 3 mg IVP ONCE 10/26/18 (Completed) midazolam (Versed) 3 mg IM ONCE 10/26/18 (Completed) midazolam (Versed) 3 mg IM ONCE 10/26/18 (Completed) midazolam (Versed) 5 mg IVP ONCE 10/26/18 (Discontinued) promethazine (Phenergan) 25 mg IVPB ONCE Continuous Infusions (1): 10/26/18 dexmedetomidine 400 microgram + Sodium Chloride 0.9% IV 100 mL ( Precedex 400 microgram in NS 100 mL (Titrate.) IV 400 microgram + Sodium Chloride 0.9% IV 100 mL) 400 microgram Titrate impression/Plan: THE FOLLOWING WERE PRESENT ON ADMISSION: In addition to above: The patient remains critically ill due to MELAS at risk of deterioration. i spent a total of 35 minutes time at the bedside evaluating the patient, reviewing data and discussing the plan of care with e teams and updating the family on plan of care and prognosis. Plan of Care No Data Provided for This Section Social History Social History Date Source Social History TypeResponse 10/26/2018 [facility] Smoking Status Unknown if ever smoked; Exposure to Tobacco Smoke Unable to obtain; Cigarette Smoking Last 365 Days Unable to obtain; Reg Smoking Cessation Counseling No entered on: 10/26/18 Family History No Data Provided for This Section Advance Directives No Data Provided for This Section Functional Status No Data Provided for This Section
--- OUTSIDE RECORDS SUMMARY | 2018-11-29 21:01 | XMS REPORT | Summary of Care ---
:1990 Author Organization [facility] Address [address] [place] [id number]- Encounter HQ Jumanar_dustin(FIN) [id number] Date(s): 10/26/18 - 11/05/[address] Professional Services provided by [facility] [place] [address]- Discharge Disposition: Home or Self Care Attending Physician: Justyn Yost MD Admitting Physician: Marcela Diaz MD Vital Signs Most recent to oldest 1 2 3 [Reference Range]: Height 172.72 cm 172.72 cm 167.64 cm (10/30/18 7:04 AM) (10/26/18 8:35 PM) (10/26/18 8:00 AM) Current Weight 45 kg (10/27/18 5:42 AM) Temperature Oral [96.4-99.1 98.6 DegF 98.9 DegF 98.8 DegF DegF] (11/05/18 3:41 PM) (11/05/18 11:44 AM) (11/05/18 8:03 AM) Blood Pressure [90-140/60-90 113/76 mmHg 116/73 mmHg 111/66 mmHg mmHg] (11/05/18 3:41 PM) (11/05/18 11:44 AM) (11/05/18 8:03 AM) Respiratory Rate [14-20 BRMIN] 18 BRMIN 18 BRMIN 18 BRMIN (11/05/18 3:41 PM) (11/05/18 11:44 AM) (11/05/18 8:03 AM) Peripheral Pulse Rate [60-100 81 bpm 101 bpm 111 bpm bpm] (11/05/18 3:41 PM) *HI* *HI* (11/05/18 11:53 AM) (11/05/18 11:44 AM) Weight 50 kg 50 kg 45.455 kg (10/30/18 7:04 AM) (10/26/18 8:35 PM) (10/26/18 8:00 AM) Body Mass Index 16.76 m2 16.17 m2 (10/26/18 8:35 PM) (10/26/18 8:00 AM) Problem List No data available for this section Allergies, Adverse Reactions, Alerts Substance Reaction Severity Status amoxicillin Active Medications acyclovir + Sodium Chloride 0.9% IV 100 mL 500 mg, Route: IV, Q8H-06, Dosing Weight 50, kg, Priority: STAT, Start date: 05/18 14:01:00 CDT, Duration: 30 day, Stop date: 11/27/18 14:00:00 CDT, 0 Notes: (Same as: Zovirax)For adult patients only: Round to nearest 50 mg per Medical Staff approval MEDICATION WASTE Product Size: 500 mgProduct Wasted: _0__ mg Start Date: 10/28/18 Stop Date: 10/28/18 Status: Discontinuedarginine 5,000 mg, 10 cap, Route: PO, Drug form: CAP, ONCE, Start date: 11/03/18 10:45: 00 CDT, Stop date: 11/03/18 10:45:00 CDT, 0 Notes: (Same as: Arginine) Start Date: 11/03/18 Stop Date: 11/03/18 Status: Completedarginine 10% additive 5,000 mg [20 mg/kg/hr] + Drug Only 50 mL 50 mL, Rate: 9.09 ml/hr, Infuse over: 5.5 hr, Route: IV, Dosing Weight 45.455 kg , Total Volume: 50 mL, Start date: 10/26/18 12:44:00 CDT, Duration: 30 day, Stop date: 11/25/18 12:43:00 CDT, 1.46, m2 Start Date: 10/26/18 Stop Date: 10/26/18 Status: Deletedarginine 500 mg oral capsule 5,000 mg=10 cap, PO, TID, # 1800 cap, 0 Refill(s) Start Date: 11/05/18 Stop Date: 01/04/19 Status: OrderedAtivan 0.5 mg, 0.25 mL, Route: IVP, Drug form: INJ, Q6H, kg, PRN Anxiety, Start date: 10/26/18 6:19:00 CDT,Duration: 30 day, Stop date: 11/25/18 6:18:00 CDT, 0 Notes: (Same as: Ativan) Start Date: 10/26/18 Stop Date: 10/30/18 Status: DiscontinuedAtivan 2 mg, Route: IVP, Drug form: INJ, Q6H, kg, PRN Anxiety, Start date: 10/26/18 5: 42:00 CDT, Duration: 30 day, Stop date: 11/25/18 5:41:00 CDT Start Date: 10/26/18 Stop Date: 10/26/18 Status: DiscontinuedAtivan 2 mg, Route: PO, Drug form: TAB, TID, kg, PRN Anxiety, Start date: 10/26/18 5:41 :00 CDT, Duration: 30 day, Stop date: 11/25/18 5:40:00 CDT Start Date: 10/26/18 Stop Date: 10/26/18 Status: Discontinuedatorvastatin 80 mg, Route: PO, Drug form: TAB, Bedtime, kg, Start date: 10/26/18 21:00:00 CDT , Duration: 30 day, Stop date: 11/24/18 21:00:00 CDT Start Date: 10/26/18 Stop Date: 10/26/18 Status: Canceledcefepime 1 gm, Route: IVP, Drug form: INJ, ABXQ8H, Dosing Weight 50, kg, (CrCl >/=60 ml/min), Start date: 10/30/18 8:00:00 CDT, Duration: 7 day, Stop date: 11/06/18 0:00:00 CDT, ABX Indication: Bacteremia, 0 Notes: (Same As: Maxipime) MEDICATION WASTE Product Size: 1000 mgProduct Wasted: ___ mg Start Date: 10/30/18 Stop Date: 10/30/18 Status: [id number] 980.75 mL + sodium chloride 23.4% IV 77 mEq 980.75 mL, Rate: 100 ml/hr, Infuse over: 10 hr, Route: IV, Dosing Weight 50 kg, Total Volume: 1,000,Priority: Routine, Start date: 11/04/18 20:55:00 CDT, Duration: 30 day, Stop date: 12/04/18 20:54:00CDT, 1.55, m2, 0 Start Date: 11/04/18 Stop Date: 11/05/18 Status: [id number] 980.75 mL + sodium chloride 23.4% IV 77 mEq 980.75 mL, Rate: 200 ml/hr, Infuse over: 5 hr, Route: IV, Dosing Weight 50 kg, Total Volume: 1,000, Priority: Routine, Start date: 10/28/18 18:03:00 CDT, Duration: 30 day, Stop date: 11/27/18 18:02:00 CDT, 1.55, m2, 0 Start Date: 10/28/18 Stop Date: 11/04/18 Status: [id number] 980.75 mL + sodium chloride 23.4% IV 77 mEq 980.75 mL, Rate: 150 ml/hr, Infuse over: 6.7 hr, Route: IV, Dosing Weight 50 kg , Total Volume: 1,000, Priority: Routine, Start date: 10/26/18 12:44:00 CDT, Duration: 30 day, Stop date: 11/25/18 12:44:00 CDT, 1.55, m2, 0 Start Date: 10/26/18 Stop Date: 10/28/18 Status: DiscontinuedGeodon 10 mg, Route: IM, Drug form: PDR/INJ, ONCE, Dosing Weight 50, kg, Priority: NOW , Start date: 10/28/18 14:48:00 CDT, Stop date: 10/28/18 14:48:00 CDT, 0 Notes: Reconstitute with 1.2 ml of sterile water. Final concentration=20 mg/ 1ml. Maximum 40 mg/24 hours (Same As: Hiren). MEDICATION WASTE *Product Size: 20 mgProduct Wasted: _0__ mg Start Date: 10/28/18 Stop Date: 10/28/18 Status: CompletedGeodon 10 mg, Route: IM, Drug form: PDR/INJ, Q6H, Dosing Weight 45.455, kg, PRN Agitation, Start date: 10/26/18 18:27:00 CDT, Duration: 30 day, Stop date: 11/25 18:26:00 CDT, 0 Notes: Reconstitute with 1.2 ml of sterile water. Final concentration=20 mg/ 1ml. Maximum 40 mg/24 hours (Same As: Hiren). MEDICATION WASTE *Product Size: 20 mgProduct Wasted: 0mg Start Date: 10/26/18 Stop Date: 10/30/18 Status: DiscontinuedHaldol 5 mg, Route: IM, ONCE, kg, Priority: STAT, Start date: 10/26/18 4:20:00 CDT, Stop date: 10/26/18 4:20:00 CDT Start Date: 10/26/18 Stop Date: 10/26/18 Status: CompletedHaldol 2.5 mg, 0.5 mL, Route: IV, Drug form: INJ, ONCE, kg, Start date: 10/26/18 6:11: 00 CDT, Stop date: 10/26/18 6:11:00 CDT, 0 Notes: (Same as: Haldol) Start Date: 10/26/18 Stop Date: 10/26/18 Status: CompletedHaldol 2.5 mg, Route: IM, ONCE, kg, Start date: 10/26/18 4:21:00 CDT, Stop date: 4:21:00 CDT Start Date: 10/26/18 Stop Date: 10/26/18 Status: CompletedKeppra + Sodium Chloride 0.9% IV 100 mL 750 mg, Route: IVPB, [id number], Dosing Weight 45.455, kg, Start date: 10/26/18 18: 00:00 CDT, Duration:30 day, Stop date: 11/25/18 6:00:00 CDT, 0 Notes: Same as KeppraMix with 100 mL NS, LR or D5W MEDICATION WASTE Product Size: 500 mgProduct Wasted: ___ mg Start Date: 10/26/18 Stop Date: 10/30/18 Status: DiscontinuedketAMINE 30 mg, Route: IV, Drug form: SOLN, ONCE, kg, Start date: 10/26/18 2:07:00 CDT, Stop date: 10/26/18 2:07:00 CDT, 0 Notes: (Same as: keTALAR) Start Date: 10/26/18 Stop Date: 10/26/18 Status: CompletedL-Arginine 5,000 mg, Route: PO, TID, kg, Start date: 10/26/18 9:00:00 CDT, Duration: 30 day , Stop date: 11/24/18 17:00:00 CDT Start Date: 10/26/18 Stop Date: 10/26/18 Status: DiscontinuedL-Arginine 5,000 mg, 10 cap, Route: PO, Drug form: CAP, TID, Dosing Weight 50, kg, Priority : NOW, Start date: 10/30/18 4:45:00 CDT, Duration: 30 day, Stop date: 11/28/18 17:00:00 CDT, 0 Notes: (Same as: Arginine) Start Date: 10/30/18 Stop Date: 11/05/18 Status: Discontinuedlacosamide 50 mg oral tablet 50 mg=1 tab, PO, BID, # 7 tab, 0 Refill(s) Start Date: 11/05/18 Stop Date: 11/05/18 Status: Discontinuedlacosamide 50 mg oral tablet 50 mg=1 tab, PO, BID, # 120 tab, 2 Refill(s) Start Date: 11/05/18 Stop Date: 05/04/19 Status: OrderedlevOCARNitine 2,270 mg, Route: PO, Q12H, Dosing Weight 45.455, kg, Start date: 10/26/18 21:00: 00 CDT, Duration: 30day, Stop date: 11/25/18 9:00:00 CDT Start Date: 10/26/18 Stop Date: 10/26/18 Status: Canceledmagnesium sulfate 2 gm, 50 mL, Route: IVPB, Drug form: INJ, ONCE, Dosing Weight 50, kg, Total dose =2 gm, Start date: 11/03/18 7:21:00 CDT, Stop date: 11/03/18 7:21:00 CDT, 0 Notes: WASTE: F/P - Sink; E - Municipal Trash Bin Start Date: 11/03/18 Stop Date: 11/03/18 Status: Completedmagnesium sulfate 2 gm, 50 mL, Route: IVPB, Drug form: INJ, ONCE, Dosing Weight 50, kg, Total dose =2 gm, Start date: 10/31/18 12:16:00 CDT, Stop date: 10/31/18 12:16:00 CDT, 0 Notes: WASTE: F/P - Sink; E - Municipal Trash Bin Start Date: 10/31/18 Stop Date: 10/31/18 Status: Completedmagnesium sulfate 2 gm, 50 mL, Route: IVPB, Drug form: INJ, ONCE, Dosing Weight 50, kg, Total dose =2 gm, Start date: 11/03/18 12:44:00 CDT, Stop date: 11/03/18 12:44:00 CDT, 0 Notes: WASTE: F/P - Sink; E - Municipal Trash Bin Start Date: 11/03/18 Stop Date: 11/03/18 Status: Completedmagnesium sulfate 2 gm, 50 mL, Route: IVPB, Drug form: INJ, Q2H, Dosing Weight 50, kg, Total dose= 4 gm, Start date: 11/02/18 14:00:00 CDT, Duration: 2 doses or times, Stop date: 11/02/18 16:00:00 CDT, 0 Notes: WASTE: F/P - Sink; E - Municipal Trash Bin Start Date: 11/02/18 Stop Date: 11/02/18 Status: Completedmagnesium sulfate 2 gm, 50 mL, Route: IVPB, Drug form: INJ, Q2H, Dosing Weight 50, kg, Total dose= 4 gm, Start date: 11/02/18 6:29:00 CDT, Duration: 2 doses or times, Stop date: 11/02/18 8:30:00 CDT, 0 Notes: WASTE: F/P - Sink; E - Municipal Trash Bin Start Date: 11/02/18 Stop Date: 11/02/18 Status: CompletedMarinol 10 mg, 2 cap, Route: PO, Drug form: CAP, BID, Dosing Weight 50, kg, Start date: 10/31/18 17:00:00 CDT, Duration: 30 day, Stop date: 11/30/18 9:00:00 CDT, 0 Notes: (Same as: Marinol) Start Date: 10/31/18 Stop Date: 11/05/18 Status: Discontinuedmelatonin 6 mg, 2 tab, Route: PO, Drug form: TAB, Bedtime, Dosing Weight 50, kg, PRN Sleep , Start date: 10/31/18 2:45:00 CDT, Duration: 30 day, Stop date: 11/30/18 2:44: 00 CDT, 0 Notes: (Same as: Melatonin) Start Date: 10/31/18 Stop Date: 11/05/18 Status: Discontinuedmelatonin 3 mg oral tablet 6 mg=2 tab, PO, Bedtime, PRN Sleep, # 60 tab, 0 Refill(s) Start Date: 11/05/18 Stop Date: 12/09/18 Status: OrderedNS (Bolus) IV 500 mL, 500 ml/hr, Infuse Over: 1 hr, Route: IV, 500, Drug form: INJ, ONCE, Priority: STAT, Dosing Weight 50 kg, Start date: 10/29/18 3:57:00 CDT, Stop date : 10/29/18 3:57:00 CDT, 0 Start Date: 10/29/18 Stop Date: 10/29/18 Status: CompletedNS (Bolus) IV 500 mL, 500 ml/hr, Infuse Over: 1 hr, Route: IV, 500, Drug form: INJ, ONCE, Priority: STAT, Dosing Weight 50 kg, Start date: 10/30/18 0:46:00 CDT, Stop date : 10/30/18 0:46:00 CDT, 0 Start Date: 10/30/18 Stop Date: 10/30/18 Status: Completednystatin topical 100,000 units/g powder 1 appl, Route: TOP, PRN, Drug form: PWDR, PRN For Fungal Prophylaxis, Start date : 10/26/18 7:45:00 CDT, Duration: 30 day, Stop date: 11/25/18 7:44:00 CDT, 0 Notes: (Same as:Mycostatin, Nilstat) For external use only. Start Date: 10/26/18 Stop Date: 11/04/18 Status: DiscontinuedOLANZapine 2.5 mg, Route: IM, Drug form: INJ, Q4H, Dosing Weight 50, kg, PRN Agitation, Start date: 10/30/18 11:56:00 CDT, Duration: 30 day, Stop date: 11/29/18 11:55: 00 CDT, 0 Notes: (Same As: ZyPREXA IM). Reconstitute with 2.1 ml sterile water for injection; use within 1 hour after reconstitution. For IM use only; do not administer IV or SUB-Q. Start Date: 10/30/18 Stop Date: 11/05/18 Status: DiscontinuedOLANZapine 5 mg oral tablet 5 mg=1 tab, PO, PRN, PRN Other -See Comment, # 60 tab, 0 Refill(s) Start Date: 11/05/18 Stop Date: 11/05/18 Status: DiscontinuedOLANZapine 5 mg oral tablet 5 mg=1 tab, PO, PRN, PRN Other -See Comment, PRN Q12, # 60 tab, 0 Refill(s) Start Date: 11/05/18 Stop Date: 01/04/19 Status: OrderedPhenergan 25 mg, Route: IVPB, ONCE, kg, Start date: 10/26/18 8:58:00 CDT, Stop date: 10/26 8:58:00 CDT Start Date: 10/26/18 Stop Date: 10/26/18 Status: DiscontinuedPhenergan 12.5 mg, 0.5 mL, Route: IVPB, Drug form: INJ, Q6H, Dosing Weight 50, kg, PRN Nausea & Vomiting, Start date: 10/30/18 22:30:00 CDT, Duration: 1 day, Stop date: 10/31/18 22:29:00 CDT, 0 Notes: Do not give IV push. (Same as: Phenergan) Start Date: 10/30/18 Stop Date: 10/31/18 Status: Completedpotassium chloride 10 mEq, Route: IVPB, Q1H, Dosing Weight 50, kg, Total Dose=40 meq, Start date: 10/31/18 7:00:00 CDT,Duration: 4 doses or times, Stop date: 10/31/18 10:00:00 CDT, Peripheral Line Start Date: 10/31/18 Stop Date: 10/31/18 Status: Discontinuedpotassium chloride 10 mEq, Route: IVPB, Q1H, Dosing Weight 50, kg, Total Dose=60 meq, Start date: 11/03/18 7:22:00 CDT,Duration: 6 doses or times, Stop date: 11/03/18 12:22:00 CDT, Peripheral Line Start Date: 11/03/18 Stop Date: 11/03/18 Status: Deletedpotassium chloride 40 mEq, 2 tab, Route: PO, Drug form: ERTAB, ONCE, Dosing Weight 50, kg, Priority : NOW, Start date: 11/03/18 12:40:00 CDT, Stop date: 11/03/18 12:40:00 CDT, 0 Start Date: 11/03/18 Stop Date: 11/03/18 Status: Completedpotassium chloride 10 mEq, 50 mL, Route: IVPB, Drug form: INJ, Q1H, Dosing Weight 50, kg, Total Dose=20 meq, Start date: 10/29/18 2:00:00 CDT, Duration: 2 doses or times, Stop date: 10/29/18 3:00:00 CDT, Peripheral Line, 0 Notes: (Same as: KCL) Infuse over 2 hours. Start Date: 10/29/18 Stop Date: 10/29/18 Status: Completedpotassium chloride 20 mEq, 100 mL, Route: IVPB, Drug form: INJ, Q2H, Start date: 11/03/18 8:30:00 CDT, Duration: 3 doses or times, Stop date: 11/03/18 12:00:00 CDT, 0 Start Date: 11/03/18 Stop Date: 11/03/18 Status: Completedpotassium chloride 10 mEq, 50 mL, Route: IVPB, Drug form: INJ, Q1H, Dosing Weight 50, kg, Total Dose=20 meq, Priority: NOW, Start date: 10/30/18 4:41:00 CDT, Duration: 2 doses or times, Stop date: 10/30/18 5:41:00 CDT, Peripheral Line, 0 Notes: (Same as: KCL) Infuse over 2 hours. Start Date: 10/30/18 Stop Date: 10/30/18 Status: Completedpotassium chloride 10 mEq, Route: IVPB, Q1H, Dosing Weight 50, kg, Total Dose=40 meq, Start date: 10/30/18 11:00:00 CDT, Duration: 4 doses or times, Stop date: 10/30/18 14:00:00 CDT, Peripheral Line Start Date: 10/30/18 Stop Date: 10/30/18 Status: Deletedpotassium chloride 20 mEq, 100 mL, Route: IVPB, Drug form: INJ, Q2H, Dosing Weight 50, kg, Total dose=40 mEq, Start date: 10/31/18 8:00:00 CDT, Duration: 2 doses or times, Stop date: 10/31/18 10:00:00 CDT, Central Line, 0 Start Date: 10/31/18 Stop Date: 10/31/18 Status: Completedpotassium chloride 20 mEq, 15 mL, Route: PO, Drug form: LIQ, BID, Dosing Weight 50, kg, Start date : 11/01/18 9:00:00 CDT, Duration: 1 day, Stop date: 11/01/18 17:00:00 CDT, 0 Notes: (Same as: Potassium Chloride) Start Date: 11/01/18 Stop Date: 11/01/18 Status: Completedpotassium chloride 10 mEq, 50 mL, Route: IVPB, Drug form: INJ, Q1H, Dosing Weight 50, kg, Total Dose=40 meq, Start date: 11/02/18 6:00:00 CDT, Duration: 4 doses or times, Stop date: 11/02/18 9:00:00 CDT, Peripheral Line, 0 Notes: (Same as: KCL) Infuse over 2 hours. Start Date: 11/02/18 Stop Date: 11/02/18 Status: Completedpotassium chloride 20 mEq, 100 mL, Route: IVPB, Drug form: INJ, Q2H, Start date: 10/30/18 12:00:00 CDT, Duration: 2 doses or times, Stop date: 10/30/18 14:00:00 CDT, 0 Notes: (Same as: KCL) Infuse no faster than 10 mEq/hr if given peripherally. Start Date: 10/30/18 Stop Date: 10/30/18 Status: Completedpotassium chloride 20 mEq/15 mL oral liquid 40 mEq, 30 mL, Route: PO, Drug form: LIQ, Daily, Dosing Weight 50, kg, Start date: 10/30/18 9:00:00 CDT, Duration: 7 day, Stop date: 11/05/18 9:00:00 CDT, 0 Notes: (Same as: Potassium Chloride) Start Date: 10/30/18 Stop Date: 10/30/18 Status: DiscontinuedPrecedex 400 microgram in NS 100 mL (Titrate.) IV 400 microgram + Sodium Chloride 0.9% IV 100 mL 400 microgram, Rate: Titrate, Start Dose: 0.2 microgram/kg/hr, Titration: 0.1 microgram/kg/hr every 30 min, Goal(s): RASS 0, Max Dose: 1.5 microgram/kg/hr, Route: IV, Dosing Weight 45.455 kg, Total Volume: 100, Start date: 10/26/18 7:54 :00 CDT, Durati... Start Date: 10/26/18 Stop Date: 10/28/18 Status: DiscontinuedR-Gene 10 4 gm + empty container 1 ea Route: IV, Drug form: INJ, Q4Hnow, Start date: 10/26/18 15:00:00 CDT, Duration: 3 day, Stop date: 10/29/18 11:00:00 CDT, 0 Notes: (Same as: R-Gene 10) Start Date: 10/26/18 Stop Date: 10/29/18 Status: CompletedSaline Flush 0.9% 10 ml, Route: IVP, Drug Form: INJ, kg, PRN, PRN Line Flush, Start date: 7:45:00 CDT, Duration: 30 day, Stop date: 11/25/18 7:44:00 CDT, 0 Notes: (Same as: BD Posiflush) Start Date: 10/26/18 Stop Date: 11/04/18 Status: DiscontinuedSaline Flush 0.9% 10 ml, Route: IVP, Drug Form: INJ, kg, Q12H, Start date: 10/26/18 9:00:00 CDT, Duration: 30 day, Stop date: 11/24/18 21:00:00 CDT, 0 Notes: (Same as: BD Posiflush) Start Date: 10/26/18 Stop Date: 11/04/18 Status: DiscontinuedSaline Flush 0.9% 10 ml, Route: IVP, Drug Form: INJ, kg, Q12H, Start date: 10/26/18 9:00:00 CDT, Duration: 30 day, Stop date: 11/24/18 21:00:00 CDT, 0 Notes: (Same as: BD Posiflush) Start Date: 10/26/18 Stop Date: 10/30/18 Status: Voided With ResultsSaline Flush 0.9% 10 ml, Route: IVP, Drug Form: INJ, kg, PRN, PRN Line Flush, Start date: 5:23:00 CDT, Duration: 30 day, Stop date: 11/25/18 5:22:00 CDT, 0 Notes: (Same as: BD Posiflush) Start Date: 10/26/18 Stop Date: 10/30/18 Status: Deletedsterile water 2.1 mL, Route: MISC, Drug Form: INJ, Q4H, PRN Other -See Comment, Start date: 14:54:00 CDT,Stop date: 11/27/18 14:53:00 CDT, 0 Start Date: 10/28/18 Stop Date: 11/05/18 Status: DiscontinuedTylenol 650 mg, 20.3 mL, Route: PO, Drug form: LIQ, ONCE, Dosing Weight 50, kg, Priority : STAT, Start date: 10/30/18 6:51:00 CDT, Stop date: 10/30/18 6:51:00 CDT, 0 Notes: Max lwugpwwkyvvxa=0975ks/day (4 gm/day). (Same as: Tylenol) Start Date: 10/30/18 Stop Date: 10/31/18 Status: Completedubiquinone 400 mg, 2 cap, Route: PO, Drug form: CAP, Daily, kg, Start date: 10/26/18 9:00: 00 CDT, Duration: 30 day, Stop date: 11/24/18 9:00:00 CDT, 0 Notes: (Same As: Co-Enzyme Q10) Start Date: 10/26/18 Stop Date: 11/05/18 Status: Discontinuedubiquinone 200 mg oral capsule 400 mg=2 cap, PO, Daily, # 120 cap, 0 Refill(s) Start Date: 11/05/18 Stop Date: 01/04/19 Status: Orderedvancomycin 1,000 mg, Route: IVPB, Drug form: INJ, ONCE, Dosing Weight 50, kg, Priority: STAT, Start date: 10/30/18 8:59:00 CDT, Stop date: 10/30/18 8:59:00 CDT, ABX Indication: Bacteremia, 0 Notes: TIME CRITICAL MEDICATION(Same As: Vancocin)Infusion rate< 1000 mg: infuse over 1 [id number] - 1500 mg: infuse over 1.5 [id number] - 2000 mg: infuse over 2 hours> 2001 mg: infuse over 2.5 hoursFor adult patients only: Round to nearest 250 mg per Medical Staff approval MEDICATION WASTE Product Size: 1000 mgProduct Wasted: ___ mg Start Date: 10/30/18 Stop Date: 10/30/18 Status: Completedvancomycin 1,000 mg, Route: IVPB, Drug form: INJ, [id number], Dosing Weight 50, kg, Start date : 10/30/18 20:00:00 CDT, Duration: 7 day, Stop date: 11/06/18 8:00:00 CDT, ABX Indication: Bacteremia, 0 Notes: TIME CRITICAL MEDICATION(Same As: Vancocin)Infusion rate< 1000 mg: infuse over 1 [id number] - 1500 mg: infuse over 1.5 [id number] - 2000 mg: infuse over 2 hours> 2001 mg: infuse over 2.5 hoursFor adult patients only: Round to nearest 250 mg per Medical Staff approval MEDICATION WASTE Product Size: 1000 mgProduct Wasted: ___ mg Start Date: 10/30/18 Stop Date: 10/30/18 Status: CanceledVersed 5 mg, Route: IVP, ONCE, kg, Start date: 10/26/18 5:45:00 CDT, Stop date: 5:45:00 CDT Start Date: 10/26/18 Stop Date: 10/26/18 Status: CompletedVersed 3 mg, Route: IM, ONCE, kg, Start date: 10/26/18 4:20:00 CDT, Stop date: 4:20:00 CDT Start Date: 10/26/18 Stop Date: 10/26/18 Status: CompletedVersed 3 mg, Route: IM, ONCE, kg, Start date: 10/26/18 4:20:00 CDT, Stop date: 4:20:00 CDT Start Date: 10/26/18 Stop Date: 10/26/18 Status: CompletedVersed 3 mg, Route: IVP, ONCE, kg, Priority: STAT, Start date: 10/26/18 4:18:00 CDT, Stop date: 10/26/18 4:18:00 CDT Start Date: 10/26/18 Stop Date: 10/26/18 Status: DiscontinuedVersed 3 mg, Route: IVP, ONCE, kg, Priority: STAT, Start date: 10/26/18 4:18:00 CDT, Stop date: 10/26/18 4:18:00 CDT Start Date: 10/26/18 Stop Date: 10/26/18 Status: DiscontinuedVimpat 50 mg, 1 tab, Route: PO, Drug form: TAB, BID, Dosing Weight 50, kg, Start date: 10/30/18 9:00:00 CDT, Duration: 30 day, Stop date: 11/28/18 17:00:00 CDT, 0 Notes: Same as: Vimpat Start Date: 10/30/18 Stop Date: 11/05/18 Status: DiscontinuedZyPREXA 2.5 mg, 1 tab, Route: PO, Drug form: TAB, BID, Dosing Weight 50, kg, Priority: NOW, Start date: 10/29/18 19:18:00 CDT, Duration: 2 doses or times, Stop date: 11/02/18 9:00:00 CDT, 0 Notes: (Same as: ZyPREXA) Start Date: 10/29/18 Stop Date: 11/02/18 Status: Completed Results Most recent to oldest 1 2 3 [Reference Range]: Neutrophils # [1.5-8.1 6.4 K/CMM 4.3 K/CMM 4.4 K/CMM K/CMM] (11/04/18 9:21 AM) (11/03/18 4:35 AM) (11/02/18 3:48 AM) Lymphocytes # [1.0-5.5 3.0 K/CMM 3.1 K/CMM 3.0 K/CMM K/CMM] (11/04/18 9:21 AM) (11/03/18 4:35 AM) (11/02/18 3:48 AM) Monocytes # [0.0-0.8 0.7 K/CMM 0.7 K/CMM 0.7 K/CMM K/CMM] (11/04/18 9:21 AM) (11/03/18 4:35 AM) (11/02/18 3:48 AM) Eosinophils # [0.0-0.5 0.3 K/CMM 0.2 K/CMM 0.3 K/CMM K/CMM] (11/04/18 9:21 AM) (11/03/18 4:35 AM) (11/02/18 3:48 AM) Basophils # [0.0-0.2 0.1 K/CMM 0.1 K/CMM 0.1 K/CMM K/CMM] (11/04/18 9:21 AM) (11/03/18 4:35 AM) (11/02/18 3:48 AM) Vanco Tr TND 0730 *NA* (10/31/18 3:26 AM) Vanco Tr 1.3 ug/ml *NA* (10/31/18 3:26 AM) HIV Ag/Ab 4th Gen Negative [Negative] *NA* (10/28/18 4:04 PM) Bili Indirect [0.0-1.0 0.2 mg/dL mg/dL] (10/26/18 11:26 AM) MRSA by PCR Negative (10/26/18 11:26 AM) eGFR 134 mL/min/1.73m2 1 128 mL/min/1.73m2 2 137 mL/min/1.73m2 3 *NA* *NA* *NA* (11/04/18 6:06 AM) (11/03/18 4:35 AM) (11/02/18 3:48 AM) UDS Note See Note (10/26/18 4:34 PM) A/G Ratio [0.7-1.6] 0.9 1.0 (10/26/18 11:26 AM) (10/26/18 5:46 AM) Albumin Lvl [3.5-5.0 3.5 g/dL 4.0 g/dL g/dL] (10/26/18 11:26 AM) (10/26/18 5:46 AM) Alk Phos [39-136 unit/L] 91 unit/L 97 unit/L (10/26/18 11:26 AM) (10/26/18 5:46 AM) ALT [0-65 unit/L] 28 unit/L 30 unit/L (10/26/18 11:26 AM) (10/26/18 5:46 AM) Ammonia [<=45.0 uMol/L] 39.0 uMol/L (10/26/18 11:26 AM) U Amph Scr [Negative] Negative *NA* (10/26/18 4:34 PM) Amylase Lvl [25-115 59 unit/L 58 unit/L unit/L] (10/28/18 6:51 PM) (10/26/18 11:26 AM) AGAP [10.0-20.0 mEq/L] 12.8 mEq/L 13.1 mEq/L 14.0 mEq/L (11/04/18 6:06 AM) (11/03/18 4:35 AM) (11/02/18 3:48 AM) AST [0-37 unit/L] 25 unit/L 23 unit/L (10/26/18 11:26 AM) (10/26/18 5:46 AM) B/C Ratio [6-25] 27 *HI* (10/26/18 5:46 AM) U Heather Scr [Negative] Negative *NA* (10/26/18 4:34 PM) Basophils [0.0-1.0 %] 0.6 % 0.9 % 0.7 % (11/04/18 9:21 AM) (11/03/18 4:35 AM) (11/02/18 3:48 AM) U Benzodiaz Scr Positive [Negative] *ABN* (10/26/18 4:34 PM) BUN [7-22 mg/dL] 15 mg/dL 10 mg/dL 7 mg/dL (11/04/18 6:06 AM) (11/03/18 4:35 AM) (11/02/18 3:48 AM) Calcium Lvl [8.5-10.5 8.1 mg/dL 8.0 mg/dL 8.9 mg/dL mg/dL] *LOW* *LOW* (11/02/18 3:48 AM) (11/04/18 6:06 AM) (11/03/18 4:35 AM) CHD Risk [4.00-7.30] 4.00 (10/26/18 5:46 AM) Chol [<=199 mg/dL] 136 mg/dL (10/26/18 5:46 AM) Chloride Lvl [95-109 104 mEq/L 111 mEq/L 112 mEq/L mEq/L] (11/04/18 6:06 AM) *HI* *HI* (11/03/18 4:35 AM) (11/02/18 3:48 AM) CO2 [24-32 mEq/L] 25 mEq/L 21 mEq/L 20 mEq/L (11/04/18 6:06 AM) *LOW* *LOW* (11/03/18 4:35 AM) (11/02/18 3:48 AM) U Cocaine Scr [Negative] Negative *NA* (10/26/18 4:34 PM) Creatinine Lvl [0.50-1.40 0.65 mg/dL 0.72 mg/dL 0.62 mg/dL mg/dL] (11/04/18 6:06 AM) (11/03/18 4:35 AM) (11/02/18 3:48 AM) Bili Direct [0.0-0.3 0.1 mg/dL <0.1 mg/dL mg/dL] (10/26/18 11:26 AM) (10/26/18 5:46 AM) Eosinophils [0.0-4.0 %] 3.0 % 2.7 % 3.5 % (11/04/18 9:21 AM) (11/03/18 4:35 AM) (11/02/18 3:48 AM) Globulin [2.7-4.2 g/dL] 3.7 g/dL 3.9 g/dL (10/26/18 11:26 AM) (10/26/18 5:46 AM) Glucose Lvl [70-99 mg/dL] 224 mg/dL 94 mg/dL 98 mg/dL *HI* (11/03/18 4:35 AM) (11/02/18 3:48 AM) (11/04/18 6:06 AM) Hct [42.0-54.0 %] 35.6 % 31.5 % 33.6 % *LOW* *LOW* *LOW* (11/04/18 9:21 AM) (11/03/18 4:35 AM) (11/02/18 3:48 AM) HDL [>=61 mg/dL] 34 mg/dL *LOW* (10/26/18 5:46 AM) Hgb [14.0-18.0 g/dL] 12.5 g/dL 11.3 g/dL 12.2 g/dL *LOW* *LOW* *LOW* (11/04/18 9:21 AM) (11/03/18 4:35 AM) (11/02/18 3:48 AM) Hgb A1C [<=5.6 %] 5.4 % (10/26/18 5:46 AM) Potassium Lvl [3.5-5.1 4.8 mEq/L 4 3.1 mEq/L 3.0 mEq/L 5 mEq/L] (11/04/18 6:06 AM) *LOW* *CRIT* (11/03/18 4:35 AM) (11/02/18 3:48 AM) Lactic Acid Lvl [0.5-2.2 3.6 mMol/L 4.7 mMol/L 6 4.2 mMol/L 7 mMol/L] *HI* *CRIT* *CRIT* (11/02/18 3:48 AM) (11/01/18 7:46 PM) (11/01/18 11:20 AM) LDL (Calculated) [<=99 78 mg/dL mg/dL] (10/26/18 5:46 AM) Lipase Lvl [73-393 94 unit/L 62 unit/L unit/L] (10/28/18 6:51 PM) *LOW* (10/26/18 11:26 AM) Lymphocytes [20.0-40.0 %] 28.9 % 37.1 % 35.2 % (11/04/18 9:21 AM) (11/03/18 4:35 AM) (11/02/18 3:48 AM) MCH [27.0-31.0 pg] 30.2 pg 30.5 pg 31.1 pg (11/04/18 9:21 AM) (11/03/18 4:35 AM) *HI* (11/02/18 3:48 AM) MCHC [32.0-36.0 g/dL] 35.0 g/dL 35.9 g/dL 36.2 g/dL (11/04/18 9:21 AM) (11/03/18 4:35 AM) *HI* (11/02/18 3:48 AM) MCV [80.0-94.0 fL] 86.4 fL 85.1 fL 85.8 fL (11/04/18 9:21 AM) (11/03/18 4:35 AM) (11/02/18 3:48 AM) Magnesium Lvl [1.8-2.4 1.8 mg/dL 1.8 mg/dL 1.5 mg/dL mg/dL] (11/04/18 6:06 AM) (11/03/18 4:35 AM) *LOW* (11/02/18 3:48 AM) Monocytes [2.0-12.0 %] 6.5 % 8.0 % 8.5 % (11/04/18 9:21 AM) (11/03/18 4:35 AM) (11/02/18 3:48 AM) MPV [7.4-10.4 fL] 8.5 fL 9.4 fL 8.7 fL (11/04/18 9:21 AM) (11/03/18 4:35 AM) (11/02/18 3:48 AM) Sodium Lvl [135-145 137 mEq/L 142 mEq/L 143 mEq/L mEq/L] (11/04/18 6:06 AM) (11/03/18 4:35 AM) (11/02/18 3:48 AM) U Opiate Scr [Negative] Negative *NA* (10/26/18 4:34 PM) U Phencyclidine Scr Negative [Negative] *NA* (10/26/18 4:34 PM) Phosphorus [2.5-4.5 5.4 mg/dL 4.2 mg/dL 4.1 mg/dL mg/dL] *HI* (11/03/18 4:35 AM) (11/02/18 3:48 AM) (11/04/18 6:06 AM) Platelet [133-450 K/CMM] 218 K/CMM 207 K/CMM 194 K/CMM (11/04/18 9:21 AM) (11/03/18 4:35 AM) (11/02/18 3:48 AM) Segs [45.0-75.0 %] 61.0 % 51.3 % 52.1 % (11/04/18 9:21 AM) (11/03/18 4:35 AM) (11/02/18 3:48 AM) Total Protein [6.4-8.4 7.2 g/dL 7.9 g/dL g/dL] (10/26/18 11:26 AM) (10/26/18 5:46 AM) Pyruvic Acid [0.3-0.7 0.3 mg/dL 8 mg/dL] *NA* (10/30/18 10:08 AM) RBC [4.70-6.10 M/CMM] 4.13 M/CMM 3.70 M/CMM 3.92 M/CMM *LOW* *LOW* *LOW* (11/04/18 9:21 AM) (11/03/18 4:35 AM) (11/02/18 3:48 AM) RDW [11.5-14.5 %] 13.3 % 12.9 % 13.0 % (11/04/18 9:21 AM) (11/03/18 4:35 AM) (11/02/18 3:48 AM) Bili Total [0.2-1.3 0.3 mg/dL 0.3 mg/dL mg/dL] (10/26/18 11:26 AM) (10/26/18 5:46 AM) U Cannab Scr [Negative] Negative *NA* (10/26/18 4:34 PM) Trig [<=149 mg/dL] 118 mg/dL (10/26/18 5:46 AM) UA Bacteria [None Seen Occasional /HPF Occasional /HPF /HPF] *NA* *NA* (10/30/18 10:08 AM) (10/28/18 2:06 PM) UA Bili [Negative] Negative Negative Negative *NA* *NA* *NA* (10/30/18 10:08 AM) (10/28/18 2:06 PM) (10/26/18 4:34 PM) UA Blood [Negative] Moderate Negative Negative *ABN* (10/28/18 2:06 PM) (10/26/18 4:34 PM) (10/30/18 10:08 AM) UA Color [Yellow] Light Yellow Yellow Yellow *NA* *NA* *NA* (10/30/18 10:08 AM) (10/28/18 2:06 PM) (10/26/18 4:34 PM) UA Glucose [Negative Negative mg/dL mg/dL] *NA* (10/30/18 10:08 AM) UA Glucose [Negative] Negative (10/28/18 2:06 PM) UA Glucose 50mg/dl *NA* (10/26/18 4:34 PM) UA Ketones [Negative Negative mg/dL Negative mg/dL mg/dL] *NA* *NA* (10/30/18 10:08 AM) (10/26/18 4:34 PM) UA Ketones [Negative] Negative *NA* (10/28/18 2:06 PM) UA Leuk Est [Negative] Small Trace Negative *ABN* *ABN* (10/26/18 4:34 PM) (10/30/18 10:08 AM) (10/28/18 2:06 PM) UA Mucus [None Seen /LPF] Few /LPF Few /LPF Few /LPF *NA* *NA* *NA* (10/30/18 10:08 AM) (10/28/18 2:06 PM) (10/26/18 4:34 PM) UA Nitrite [Negative] Negative Negative Negative (10/30/18 10:08 AM) (10/28/18 2:06 PM) (10/26/18 4:34 PM) UA pH [5.0-8.0] 6.0 5.0 (10/30/18 10:08 AM) (10/26/18 4:34 PM) UA pH [5.0-8.0] 5.5 (10/28/18 2:06 PM) UA Protein [Negative Negative mg/dL 100 mg/dL mg/dL] (10/30/18 10:08 AM) *ABN* (10/26/18 4:34 PM) UA Protein [Negative] Negative (10/28/18 2:06 PM) UA RBC [0-2 /HPF] 1 /HPF <1 /HPF 1 /HPF (10/30/18 10:08 AM) (10/28/18 2:06 PM) (10/26/18 4:34 PM) UA Spec Grav [<=1.030] 1.005 1.026 (10/30/18 10:08 AM) (10/26/18 4:34 PM) UA Spec Grav [<=1.030] 1.010 (10/28/18 2:06 PM) UA Sq Epi None Seen None Seen *NA* *NA* (10/30/18 10:08 AM) (10/26/18 4:34 PM) UA Sq Epi [Few] None Seen (10/28/18 2:06 PM) UA Turbidity [Clear] Clear Clear Clear (10/30/18 10:08 AM) (10/28/18 2:06 PM) (10/26/18 4:34 PM) UA Urobilinogen [0.1-1.0 <1.0 mg/dL <1.0 mg/dL mg/dL] (10/30/18 10:08 AM) (10/26/18 4:34 PM) UA Urobilinogen [0.1-1.0 0.2 EU/dL EU/dL] (10/28/18 2:06 PM) UA WBC [0-5 /HPF] 1 /HPF 1 /HPF <1 /HPF (10/30/18 10:08 AM) (10/28/18 2:06 PM) (10/26/18 4:34 PM) WBC [3.7-10.4 K/CMM] 10.4 K/CMM 8.5 K/CMM 8.5 K/CMM (11/04/18 9:21 AM) (11/03/18 4:35 AM) (11/02/18 3:48 AM) Ca Ion WB [1.05-1.25 1.05 mMol/L 1.09 mMol/L 1.15 mMol/L mMol/L] (11/04/18 6:06 AM) (11/03/18 4:35 AM) (11/02/18 3:48 AM) Ca Norm WB [1.05-1.25 1.05 mMol/L 1.08 mMol/L 1.11 mMol/L mMol/L] (11/04/18 6:06 AM) (11/03/18 4:35 AM) (11/02/18 3:48 AM) VLDL 24 *NA* (10/26/18 5:46 AM) 1Result Comment: The eGFR is calculated using the CKD-EPI formula. In most young , healthy individualsthe eGFR will be >90 mL/min/1.73m2. The eGFR declines with age. An eGFR of 60-89 may be normal insome populations, particularly the elderly, for whom the CKD-EPI formula has not been extensively validated. Use of the eGFR is not recommended in the following populations: Individuals with unstable creatinine concentrations, including patients and those with serious co-morbid conditions. Patients with extremes in muscle mass or diet. The data above are obtained from the National Kidney Disease Education Program ( NKDEP) which additionally recommends that when the eGFR is used in patients with extremes of body mass index for purposesof drug dosing, the eGFR should be multiplied by the estimated BMI.2Result Comment: The eGFR is calculated using the CKD-EPI formula. In most young, healthy individualsthe eGFR will be >90 mL/min/1.73m2. The eGFR declines with age. An eGFR of 60-89 may be normal insome populations, particularly the elderly, for whom the CKD-EPI formula has not been extensively validated. Use of the eGFR is not recommended in the following populations: Individuals with unstable creatinine concentrations, including patients and those with serious co-morbid conditions. Patients with extremes in muscle mass or diet. The data above are obtained from the National Kidney Disease Education Program ( NKDEP) which additionally recommends that when the eGFR is used in patients with extremes of body mass index for purposesof drug dosing, the eGFR should be multiplied by the estimated BMI.3Result Comment: The eGFR is calculated using the CKD-EPI formula. In most young, healthy individualsthe eGFR will be >90 mL/min/1.73m2. The eGFR declines with age. An eGFR of 60-89 may be normal insome populations, particularly the elderly, for whom the CKD-EPI formula has not been extensively validated. Use of the eGFR is not recommended in the following populations: Individuals with unstable creatinine concentrations, including patients and those with serious co-morbid conditions. Patients with extremes in muscle mass or diet. The data above are obtained from the National Kidney Disease Education Program ( NKDEP) which additionally recommends that when the eGFR is used in patients with extremes of body mass index for purposesof drug dosing, the eGFR should be multiplied by the estimated BMI.4Result Comment: Specimen Moderately Hemolyzed.5Result Comment: Critical Result(s) called to Gail Ellsworth at 2018 04:46 by stp. Read back OK.6Result Comment: Critical Result(s) called to Gail Ellsworth at 11/01/2018 20:27 by AC. Read back OK.7Result Comment: Critical Result(s) called to Ke Beach at 11/01/2018 12:05 by wx. Read back OK.8Result Comment: This test was developed and its performance characteristics determined by [facility]. It has not been cleared or approved by the Food and Drug Administration. Performed At: [address] [id number] Krishna Smiley MD Ph:[phone] Immunizations No data available for this section Procedures No data available for this section Social History Social History Type Response Smoking Status Unknown if ever smoked; Exposure to Tobacco Smoke Unable to obtain; Cigarette Smoking Last 365 Days Unable to obtain; Reg Smoking Cessation Counseling No entered on: 10/26/18 Assessment and Plan Extracted from: Title: Stroke Discharge Summary Author: Darrin Berrios MD Date: 11/05/18 Discharge Summary Date of Admission: Patient was admitted on 10/26/2018 Date of Discharge: 11/05/2018 Admit Diagnosis: Cerebral infarction, unspecified (I63.9) 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) Unspecified convulsions (R56.9) Toxic encephalopathy (G92) Discharge Diagnosis: Diagnoses This Visit (E88.41) (I63.9) Ischemicstroke(I63.9) MELAS(mitochondrialencephalopathy,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 He was initially diagnosed with a sinus infection and was prescribed ABX and subsequently discharged home. The following day, his sister noticed that his cognition and began "spacing out" worsene d and was taken [facility] where he was then transferred to [facility] for higher level of care. Upon arrival CT Brain was obtained and revealed symmetric restricted diffusion in the bilateral ante rolateral temporal lobes with underlying subcortical white matter involvement and gyral swelling, strongly suggestive of acute infarcts related to MELAS. An MRI obtained on the following day revealed in creased lactate in the longo matter and deep white matter of bilateral temporal parietal-lobes likely representing anaerobic metabolism given recent ischemic changes He was admitted to the neurology unit where he received IV arginine x 4 days and discharged with CoQ10, Citrulline, Arginine, and atorvastatin. Per sister, the patient has been noncompliant with his medications. After discharge, the patien bandar was slightly agitated, but tolerable. Today, the patient's cognition worsened and began processing information even slower than his baseline, appearing very spaced out with episodes inappropriate laug hter. His agitation seemed to worsen as the day progressed becoming very violent and destructive at home. The family decided to bring the patient to the ED thereafter. In the ED his agitation heightened and he began fighting with the ER staff. He was given several doses of versed , haldol x1, ketamine x1 and placed on [...] ischemic infarctions in bilateral temporal lobes in [facility]. He was agitated thus brought back to us. It's unclear if he has any new infarcts but even so a repeat MRI would not change the management. An underlying encephalitis is less likely as his exam is not consistent with that. Both tests will require general anaesthesia and sedation which may have a n egative impact on his progress. Continue arginine for [...] me. Family meeting today at 2 pm. GO meeting was held. Discharge Physical Examination: Vitals [...] 04) L 11.3 (NOV 03) L 12.2 (NOV 02) L 12.6 ( NOV 01) Hct L 35.6 (NOV 04) L 31.5 (NOV 03) L 33.6 (NOV 02) L 34.6 ( NOV 01) Plt 218 (NOV 04) 207 (NOV [...] (NOV 04) 0.72 (NOV 03) 0.62 (NOV 02) 0.69 (NOV 01) BUN 15 (NOV 04) 10 (NOV 03) 7 (NOV 02) 7 (NOV 01) Glucose Random H 224 (NOV 04) 94 (NOV 03) 98 (NOV 02) H 106 (NOV 01) Mg 1.8 (NOV 04) 1.8 (NOV 03) L 1.5 (NOV 02) 1.8 (NOV 01) Phos H 5.4 (NOV 04) 4.2 (NOV 03) 4.1 (NOV 02) 4.2 (NOV 01) Ca L 8.1 (NOV 04) L 8.0 (NOV 03) 8.9 (NOV 02) 8.8 (NOV 01) Hgb A1C: 5.4 % (10/26/18 05:46:00) Alk Phos: 91 unit/L (10/26/18 11:26:00) A/G Ratio: 0.9 (10/26/18 11:26:00) ALT: 28 unit/L (10/26/18 11:26:00) Albumin Lvl: 3.5 g/dL (10/26/18 11:26:00) Bili Direct: 0.1 mg/dL (10/26/18 11:26:00) Bili Indirect: 0.2 mg/dL (10/26/18 11:26:00) Bili Total: 0.3 mg/dL (10/26/18 11:26:00) Total Protein: 7.2 g/dL (10/26/18 11:26:00) Globulin: 3.7 g/dL (10/26/18 11:26:00) AST: 25 unit/L (10/26/18 11:26:00) No qualifying data available. Imaging Studies (last [...] DC instructions: You were admitted to the OR Stroke service at [facility] in the [facility]. You were admitted for MELAS Crisis. Discharge [...] PM Please call our nurse navigator Santa ([phone]) with any questions after discharge. Please take your discharge paperwork with you to your follow- up appointments. Returning back to work/school will be addressed at your follow- up appointment. Stroke clinic address: [place] [facility]- Stroke Neurology [address] [place] [address] , [address] [place] [address] Extracted from: Title: Stroke Progress Note Author: Darrin Berrios MD Date: Stroke Team Progress Note Name: Jorge Calvillo Admission Date: 10/26/2018 Brief H&P: Jorge is a 28 year old male recently diagnosed with MELAS at [facility] (discharged on 10/23) presenting with worsening cognition and increased agitation On 10/17 he was taken [facility] ER for b/l hearing loss. He was initially diagnosed with a sinus infection and was prescribed ABX and subsequently discharged home. The following day, his sister noticed that his cognition and began "spacing out" worsene d and was taken [facility] where he was then transferred to [facility] for higher level of care. Upon arrival CT Brain was obtained and revealed symmetric restricted diffusion in the bilateral ante rolateral temporal lobes with underlying subcortical white matter involvement and gyral swelling, strongly suggestive of acute infarcts related to MELAS. An MRI obtained on the following day revealed in creased lactate in the longo matter and deep white matter of bilateral temporal parietal-lobes likely representing anaerobic metabolism given recent ischemic changes He was admitted to the neurology unit where he received IV arginine x 4 days and discharged with CoQ10, Citrulline, Arginine, and atorvastatin. Per sister, the patient has been noncompliant with his medications. After discharge, the patien bandar was slightly agitated, but tolerable. Today, the patient's cognition worsened and began processing information even slower than his baseline, appearing very spaced out with episodes inappropriate laug hter. His agitation seemed to worsen as the day progressed becoming very violent and destructive at home. The family decided to bring the patient to the ED thereafter. In the ED his agitation heightened and he began fighting with the ER staff. He was given several doses of versed , haldol x1, ketamine x1 and placed on [...] ischemic infarctions in bilateral temporal lobes in [facility]. He was agitated thus brought back to us. It's unclear if he has any new infarcts but even so a repeat MRI would not change the management. An underlying encephalitis is less likely as his exam is not consistent with that. Both tests will require general anaesthesia and sedation which may have a n egative impact on his progress. Continue arginine for [...] me. Family meeting today at 2 pm. GO meeting was held. ROS Unable to obtain [...] 10/31/18 dronabinol (Marinol) 10 mg PO BID 10/30/18 lacosamide (Vimpat) 50 mg PO BID 10/26/18 [...] 03) L 12.2 (NOV 02) L 12.6 (NOV 01) L 13.5 ( OCT 31) Hct L 31.5 (NOV 03) L 33.6 (NOV 02) L 34.6 (NOV 01) L 38.5 ( OCT 31) Plt 207 (NOV 03) 194 (NOV 02) 213 (NOV 01) 204 (OCT 31) Na 143 (NOV 02) 142 (NOV 01) 140 (OCT 31) 138 (OCT 30) K C 3.0 (NOV 02) L 3.4 (NOV 01) L 3.3 (OCT 31) L 3.1 (OCT 30 ) CO2 L 20 (NOV 02) L 21 (NOV 01) L 20 (OCT 31) L 18 (OCT 30) Cl H 112 (NOV 02) H 111 (NOV 01) 108 (OCT 31) 107 (OCT 30) Cr 0.62 (NOV 02) 0.69 (NOV 01) 0.54 (OCT 31) 0.82 (OCT 30) BUN 7 (NOV 02) 7 (NOV 01) L 5 (OCT 31) L 4 (OCT 30) Glucose Random 98 (NOV 02) H 106 (NOV 01) H 136 (OCT 31) H 164 (OCT 30) Mg L 1.5 [...] study for comparison. CSF Studies Done at [facility] (10/20/2018) Gl 56, P 76, WBC 3 [...] old male recently diagnosed with MELAS at [facility] (discharged on 10/23) presenting with worsening cognition and increased agitation. Stroke risk factors include MELAS. PE: shows no new focal neurological deficits. (Unable to test the patient's hearing as he was very sedated). Brain CT shows subacute infarction involving bilateral tem poral regions with few bilateral scattered hyperdensities, suggestive of hemorrhagic conversions. Small focal hypodensity in bilateral cerebellum without associated surrounding edema, favoring chronic infarction in nature. Diagnosis: Sub-acute ischemic stroke Suspected etiology: MELAS [employer]ER Acute Ischemic Stroke w/ hemorrhagic transformation previously [...] Famotidine. Bowel: Docusate. Rehab Services PT/OT/ST: Awaiting [facility] ([address] [place] [address]) versus home with HH and family training for close supervision. DVT ppx: SCDs Diet: Regular Diet Code Status: Full Code. Disposition:? Darrin Berrios MD, MPH Neurology Resident PGY-3 [facility] Addendum by Marcela Diaz MD on STROKE STAFF 11/05/2018 21:21 I have personally evaluated the patient. i have reviewed the resident 's note detailed above. I agree with the resident's findings, assessment and plan as outlined in the note except as detailed below. Extracted from: Title: Supportive Medicine Consult Note Author: Chey Austin MD Date: Jorge Calvillo is a 28 year old male recently diagnosed with MELAS at [facility] presenting with worsening cognition and increased agitation, [...] now, will need to reach out to SW/home school teacher to try and get in touch with patient's father in [place] - if he is unreachable, decision makers [...] any BMs either. He has been restless and agitated.They do not have the ability to care for patient at home and would like assistance with discussingwhere he can go from here. On review, patient's father in [place] is the legal surrogate, if he is reasonably available. We willsee if chaplainscan assist in getting hold of him. Otherwise sisters would be NOK. We have discussed the patient with primary team physician. Thank you for the opportunity to participate in this patient's care. We will follow along with you. OR Supportive Medicine Pager:#[phone](24 hours / 7 days) Extracted from: Title: Stroke Team H&P Author: Vince Johnson MD Date: 10/26/18 OR-STROKE HISTORY AND PHYSICAL Attending of Record: Dr. Diaz Patient Name: Jorge Calvillo Date of Admission: 10/26/2018 Chief Complaint: Worsening Cognition and agitation HPI: Jorge is a 28 year old male recently diagnosed with MELAS at [facility] (discharged on 10/23) presenting with worsening cognition and increased agitation On 10/17 he was taken [facility] ER for b/l hearing loss. He was initially diagnosed with a sinus infection and was prescribed ABX and subsequently discharged home. The following day, his sister noticed that his cognition and began "spacing out" worsene d and was taken [facility] where he was then transferred to [facility] for higher level of care. Upon arrival CT Brain was obtained and revealed symmetric restricted diffusion in the bilateral ante rolateral temporal lobes with underlying subcortical white matter involvement and gyral swelling, strongly suggestive of acute infarcts related to MELAS. An MRI obtained on the following day revealed in creased lactate in the longo matter and deep white matter of bilateral temporal parietal-lobes likely representing anaerobic metabolism given recent ischemic changes He was admitted to the neurology unit where he received IV arginine x 4 days and discharged with CoQ10, Citrulline, Arginine, and atorvastatin. Per sister, the patient has been noncompliant with his medications. After discharge, the patien t was slightly agitated, but tolerable. Today, the patient's cognition worsened and began processing information even slower than his baseline, appearing very spaced out with episodes inappropriate laug hter. His agitation seemed to worsen as the day progressed becoming very violent and destructive at home. The family decided to bring the patient to the ED thereafter. In the ED his agitation heightened and he began fighting with the ER staff. He was given several doses of versed , haldol x1, ketamine x1 and placed on [...] last 24 hours) Most Recent Scores: 10/26/18 Kendra Coma Score 13 Lines, Tubes, and Drains: [...] old male recently diagnosed with MELAS at [facility] (discharged on 10/23) presenting with worsening cognition and increased agitation Stroke risk factors include MELAS. PE: shows no new focal neurological deficits. (Unable to test the patient's hearing as he was very sedated). Brain CT shows subacute infarction involving bilateral tem poral regions with few bilateral scattered hyperdensities, suggestive of hemorrhagic conversions. Small focal hypodensity in bilateral cerebellum without associated surrounding edema, favoring chronic infarction in nature. Diagnosis: Sub-acute ischemic stroke - Suspected etiology: MELAS Plan: [employer] Acute Ischemic Stroke w/ hemorrhagic transformation previously [...] Neurology THE FOLLOWING WERE PRESENT ON ADMISSION: [employer]ER Subacute ischemic stroke Hemorrhagic Transformation MELAS B/L [...]
--- OUTSIDE RECORDS SUMMARY | 2018-11-29 21:01 | XMS REPORT ---
:1990 [facility] [address] [place] [address] Care Team Providers Name Role Phone Unavailable Unavailable Unavailable Problems This patient has no known problems. Allergies, Adverse Reactions, Alerts This patient has no known allergies or adverse reactions. Medications This patient has no known medications. Encounters Start End Encounter Admission Attending Care Care Encounter Date/Time Date/Time Type Type Clinicians Facility Department ID 2018-11-16 Inpatient [facility] MED [id number] 22:55:57 2018-11-17 2018-11-16 Inpatient U [facility] [id number] 00:33:00 22:08:00 2018-10-26 2018-10-26 Inpatient [facility] [id number] 05:23:00 00:57:00
[2018-11-29] MEDS ORDERED: LORazepam 2 MG/ML VIAL ONE (21:36)
[2018-11-29] MEDS ORDERED: LEVETIRACETAM 500 MG/5 ML VIAL IV ONE ×2 (21:37→23:32)
[2018-11-29] MEDS ORDERED: NA CHLORIDE 0.9% 250 ML ONE ×2 (21:37→23:32)
--- NOTE | 2018-11-29 22:30 | ER ---
Nurse's Notes [facility] Name: Lucien Calvillo Jr Age: 28 yrs Sex: Male : 1990 Arrival Date: 11/29/2018 Time: 20:57 Bed 20 Private MD: Diagnosis: Epilepsy and recurrent seizures-MELAS Syndrome;Hypokalemia Presentation: 11/29 20:59 Presenting complaint: Presenting complaint: Mother states: "he started having drooling jd3 and different mentation problems since this morning. this is the same symptom he had the last time he had a stroke. he has had 3-4 strokes within the last 10 days. he was last seen at [facility] for his last stroke.". 21:11 Transition of care: patient was not received from another setting of care. Onset of jd3 symptoms was November 29, 2018. Risk Assessment: Do you want to hurt yourself or someone else? Patient reports no desire to harm self or others. Initial Sepsis Screen: Does the patient meet any 2 criteria? No. Patient's initial sepsis screen is negative. Does the patient have a suspected source of infection? No. Patient's initial sepsis screen is negative. Care prior to arrival: None. 21:11 Method Of Arrival: Ambulatory jd3 21:11 Acuity: GINNY 3 jd3 21:11 Note provider notified. VAN scoring: pt with no arm drift. VAN negative. jd3 Triage Assessment: 21:15 Neuro: Level of Consciousness is awake, alert, obeys commands, Oriented to person, jd3 place, time, situation, Process Control Tech are equal bilaterally Moves all extremities. Full function Gait is steady, Speech is slurred, Facial symmetry appears normal, drooling noted. Historical: - Allergies: 21:14 Amoxicillin; jd3 - PMHx: 21:14 CVA; MELAS; Seizures; jd3 - PSHx: 21:14 None; jd3 - Immunization history:: Adult Immunizations up to date. - Social history:: Smoking status: Patient/guardian denies using tobacco. - Ebola Screening: : Patient negative for fever greater than or equal to 101.5 degrees Fahrenheit, and additional compatible Ebola Virus Disease symptoms. - Family history:: not pertinent. Screenin:15 Abuse screen: Denies threats or abuse. Denies injuries from another. Nutritional rr5 screening: No deficits noted. Tuberculosis screening: No symptoms or risk factors identified. Fall Risk IV access (20 points). Total [place] Fall Scale indicates No Risk (0-24 pts). Assessment: 21:00 General: Appears in no apparent distress. comfortable, Behavior is calm, cooperative, rr5 appropriate for age. 21:00 Pain: Denies pain. Neuro: Level of Consciousness is awake, alert, obeys commands, rr5 Oriented to person, place, time, situation, Appropriate for age Process Control Tech are equal bilaterally Speech is slurred, Facial symmetry appears normal, Pupils are PERRLA, drooling and left cheek twitching noted. drowsiness noted.. Cardiovascular: Capillary refill < 3 seconds Patient's skin is warm and dry. Respiratory: Airway is patent Respiratory effort is even, unlabored, Respiratory pattern is regular, symmetrical. GI: No signs and/or symptoms were reported involving the gastrointestinal system. : No signs and/or symptoms were reported regarding the genitourinary system. EENT: drooling of saliva noted. positive gag reflex. Derm: Skin is intact, Skin is pink, warm \\T\\ dry. Skin temperature is warm. Musculoskeletal: Circulation, motion, and sensation intact. Capillary refill < 3 seconds. 22:10 Reassessment: Patient appears in no apparent distress at this time. drowsiness noted. rr5 patient able to answer question correctly on verbal command. 23:15 Reassessment: Patient appears in no apparent distress at this time. Patient is alert, rr5 oriented x 3, equal unlabored respirations, skin warm/dry/pink. ED provider coordinating with other hospital for trasnfer. 23:50 Reassessment: Patient appears in no apparent distress at this time. Patient is alert, rr5 oriented x 3, equal unlabored respirations, skin warm/dry/pink. Laboratory informed for re extraction of CBC and PT. 11/30 00:09 Reassessment: julissa [facility] informed and accepted the case. rr5 00:10 Reassessment: patients corporate analyst wants to talk to ED provider. before they sign the rr5 transfer form. 00:20 Reassessment: Patient appears in no apparent distress at this time. ED provider spoke rr5 to patient and corporate analyst, agreed for the trasnfer. 00:35 Reassessment: able to void freely, walk down the corridor going to restroom steady gait rr5 noted. 01:16 Reassessment: Patient appears in no apparent distress at this time. Patient is alert, rr5 oriented x 3, equal unlabored respirations, skin warm/dry/pink. endorsed to EMS [facility] 15/15 not in distress breathing spontaneously at room. IV intact. no complaints made. vitally stable. Vital Signs: 11/29 00:30 BP 118 / 62; Pulse 59; Resp 16; Pulse Ox 99% ; rr5 21:14 BP 127 / 76; Pulse 69; Resp 16 S; Temp 99.2(TE); Pulse Ox 100% on R/A; Weight 38.56 kg jd3 (R); Height 5 ft. 5 in. (165.10 cm) (R); Pain 0/10; 22:30 BP 121 / 73; Pulse 62; Resp 16; Pulse Ox 99% on R/A; rr5 23:35 BP 114 / 79; Pulse 61; Resp 17; Temp 99; Pulse Ox 100% on R/A; rr5 11/30 01:00 BP 112 / 82; Pulse 60; Resp 17; Temp 98.8; Pulse Ox 99% ; Pain 0/10; rr5 11/29 21:14 Body Mass Index 14.14 (38.56 kg, 165.10 cm) jd3 Kendra Coma Score: 11/29 21:14 Eye Response: spontaneous(4). Verbal Response: oriented(5). Motor Response: obeys rr5 commands(6). Total: 15. 22:30 Eye Response: spontaneous(4). Verbal Response: oriented(5). Motor Response: obeys rr5 commands(6). Total: 15. ED Course: 20:57 Patient arrived in ED. ds1 21:13 Triage completed. jd3 21:15 Arm band placed on. jd3 21:20 Inserted saline lock: 22 gauge in left forearm, using aseptic technique. Blood rr5 collected. 21:22 Tony Garcia MD is Attending Physician. [facility] 21:30 Patient has correct armband on for positive identification. Placed in gown. Bed in low rr5 position. Call light in reach. Side rails up X2. monitor technician on. Pulse ox on. NIBP on. 21:35 Hong, Flaquito, RN is Primary Nurse. rr5 22:15 XRAY Chest (1 view) In Process Unspecified. EDMS 22:56 CT Head Brain wo Cont In Process Unspecified. EDMS 11/30 00:15 Inserted saline lock: 22 gauge in right forearm, using aseptic technique. rr5 01:05 No provider procedures requiring assistance completed. rr5 01:11 Patient transferred, IV remains in place. intact, No redness/swelling at site. rr5 Administered Medications: 11/29 22:00 Drug: Ativan 0.5 mg Route: IVP; Site: left forearm; rr5 23:00 Follow up: Response: No adverse reaction rr5 22:02 Drug: Keppra 500 mg Route: IV; Rate: per protocol; Site: left forearm; rr5 23:00 Follow up: Response: No adverse reaction; IV Status: Completed infusion; IV Intake: rr5 250ml 23:19 Drug: TEGretol 300 mg Route: PO; rr5 11/30 00:20 Follow up: Response: No adverse reaction rr5 11/29 23:51 Drug: Keppra 500 mg Route: IV; Rate: per protocol; Site: right forearm; rr5 11/30 00:50 Follow up: Response: No adverse reaction; IV Status: Completed infusion; IV Intake: rr5 250ml 00:37 Drug: Potassium Effervescent Tablet 25 mEq Route: PO; rr5 01:09 Follow up: Response: No adverse reaction rr5 00:37 Drug: Aspirin 81 mg Route: PO; rr5 01:09 Follow up: Response: No adverse reaction rr5 Intake: 11/29 23:00 IV: 250ml; Total: 250ml. rr5 11/30 00:50 IV: 250ml; Total: 500ml. rr5 Outcome: 11/29 22:30 ER care complete, transfer ordered by . edwardo 11/30 01:11 Transferred by ground EMS to [facility], Transfer form completed. rr5 Condition: stable Instructed on the need for transfer. 01:17 Patient left the ED. rr5 Signatures: Dispatcher [employer] Tony Chiang MD MD cha Sanford, Demi ds1 Trell Krishnamurthy RN RN jd3 Roque, Raymond, RN RN rr5 Corrections: (The following items were deleted from the chart) 11/29 21:13 20:59 Presenting complaint: jd3 jd3 21:19 21:11 Note provider notified. jd3 jd3
--- NOTE | 2018-11-29 22:31 | EDPHYS ---
Physician Documentation [facility] Name: Lucien Calvillo Jr Age: 28 yrs Sex: Male : 1990 Arrival Date: 11/29/2018 Time: 20:57 Bed 20 Private MD: ED Physician Tony Garcia HPI: 11/29 21:33 This 28 yrs old Male presents to ER via Ambulatory with complaints of Mouth edwardo Discomfort-Drooling. 21:33 The patient presents with pain. The problem is located in the gums and left buccal edwardo mucosa. Onset: The symptoms/episode began/occurred today. Duration: The symptoms are continuous, and are unchanged since they started. Modifying factors: The symptoms are alleviated by nothing, the symptoms are aggravated by nothing. The patient's problem is reported as an apparent seizure, Motor activity is described as left face. Duration: The episode is continuous. The symptoms are alleviated by nothing. The symptoms are aggravated by nothing. Historical: - Allergies: 21:14 Amoxicillin; jd3 - PMHx: 21:14 CVA; MELAS; Seizures; jd3 - PSHx: 21:14 None; jd3 - Immunization history:: Adult Immunizations up to date. - Social history:: Smoking status: Patient/guardian denies using tobacco. - Ebola Screening: : Patient negative for fever greater than or equal to 101.5 degrees Fahrenheit, and additional compatible Ebola Virus Disease symptoms. - Family history:: not pertinent. ROS: 21:33 Constitutional: Negative for fever, chills, and weight loss, Eyes: Negative for injury, edwardo pain, redness, and discharge, ENT: Negative for injury, pain, and discharge, Neck: Negative for injury, pain, and swelling, Cardiovascular: Negative for chest pain, palpitations, and edema, Respiratory: Negative for shortness of breath, cough, wheezing, and pleuritic chest pain, Abdomen/GI: Negative for abdominal pain, nausea, vomiting, diarrhea, and constipation, Back: Negative for injury and pain, : Negative for injury, bleeding, discharge, and swelling, MS/Extremity: Negative for injury and deformity, Skin: Negative for injury, rash, and discoloration, Psych: Negative for depression, anxiety, suicide ideation, homicidal ideation, and hallucinations, Allergy/Immunology: Negative for hives, rash, and allergies, Endocrine: Negative for neck swelling, polydipsia, polyuria, polyphagia, and marked weight changes, Hematologic/Lymphatic: Negative for swollen nodes, abnormal bleeding, and unusual bruising. 21:33 Neuro: Positive for seizure activity, weakness. Exam: 21:33 Constitutional: This is a well developed, well nourished patient who is awake, alert, edwardo and in no acute distress. Head/Face: Normocephalic, atraumatic. Eyes: Pupils equal round and reactive to light, extra-ocular motions intact. Lids and lashes normal. Conjunctiva and sclera are non-icteric and not injected. Cornea within normal limits. Periorbital areas with no swelling, redness, or edema. ENT: Nares patent. No nasal discharge, no septal abnormalities noted. Tympanic membranes are normal and external auditory canals are clear. Oropharynx with no redness, swelling, or masses, exudates, or evidence of obstruction, uvula midline. Mucous membranes moist. Neck: Trachea midline, no thyromegaly or masses palpated, and no cervical lymphadenopathy. Supple, full range of motion without nuchal rigidity, or vertebral point tenderness. No Meningismus. Chest/axilla: Normal chest wall appearance and motion. Nontender with no deformity. No lesions are appreciated. Cardiovascular: Regular rate and rhythm with a normal S1 and S2. No gallops, murmurs, or rubs. Normal PMI, no JVD. No pulse deficits. Respiratory: Lungs have equal breath sounds bilaterally, clear to auscultation and percussion. No rales, rhonchi or wheezes noted. No increased work of breathing, no retractions or nasal flaring. Abdomen/GI: Soft, non-tender, with normal bowel sounds. No distension or tympany. No guarding or rebound. No evidence of tenderness throughout. Back: No spinal tenderness. No costovertebral tenderness. Full range of motion. Male : Normal genitalia with no discharge or lesions. Skin: Warm, dry with normal turgor. Normal color with no rashes, no lesions, and no evidence of cellulitis. MS/ Extremity: Pulses equal, no cyanosis. Neurovascular intact. Full, normal range of motion. Psych: Awake, alert, with orientation to person, place and time. Behavior, mood, and affect are within normal limits. 21:33 Neuro: Orientation: is normal, appropriate for stated age, to person, place \T\ time. Mentation: appropriate for stated age, slow to respond, Memory: appropriate for stated age, no acute changes, Cranial nerves: no acute changes, Cerebellar function: unable to test, Motor: moves all fours, Sensation: is normal, no obvious gross deficits, appropriate no acute changes, seizure activity, focal in nature is displayed by patient, lfet side of face. 11/30 00:00 Radiologist reports: multiinfarct ct, no blood edwardo Vital Signs: 11/29 00:30 BP 118 / 62; Pulse 59; Resp 16; Pulse Ox 99% ; rr5 21:14 BP 127 / 76; Pulse 69; Resp 16 S; Temp 99.2(TE); Pulse Ox 100% on R/A; Weight 38.56 kg jd3 (R); Height 5 ft. 5 in. (165.10 cm) (R); Pain 0/10; 22:30 BP 121 / 73; Pulse 62; Resp 16; Pulse Ox 99% on R/A; rr5 23:35 BP 114 / 79; Pulse 61; Resp 17; Temp 99; Pulse Ox 100% on R/A; rr5 11/30 01:00 BP 112 / 82; Pulse 60; Resp 17; Temp 98.8; Pulse Ox 99% ; Pain 0/10; rr5 11/29 21:14 Body Mass Index 14.14 (38.56 kg, 165.10 cm) jd3 [place] Coma Score: 11/29 21:14 Eye Response: spontaneous(4). Verbal Response: oriented(5). Motor Response: obeys rr5 commands(6). Total: 15. 22:30 Eye Response: spontaneous(4). Verbal Response: oriented(5). Motor Response: obeys rr5 commands(6). Total: 15. MDM: 21:22 Patient medically screened. [facility] 21:36 Data reviewed: vital signs, nurses notes, lab test result(s), EKG, radiologic studies, [facility] plain films. 11/29 21:32 Order name: Basic Metabolic Panel; Complete Time: 22:55 [facility] 11/29 21:32 Order name: CBC with Diff [facility] 11/29 21:32 Order name: LFT's; Complete Time: 22:55 [facility] 11/29 21:32 Order name: Magnesium; Complete Time: 22:55 [facility] 11/29 21:32 Order name: NT PRO-BNP; Complete Time: 22:55 [facility] 11/29 21:32 Order name: PT-INR [facility] 11/29 21:32 Order name: Troponin (emerg Dept Use Only); Complete Time: 22:55 [facility] 11/29 21:32 Order name: XRAY Chest (1 view) [facility] 11/29 21:32 Order name: Sed Rate [facility] 11/29 21:32 Order name: CRP; Complete Time: 22:55 [facility] 11/29 21:32 Order name: CT Head Brain wo Cont [facility] 11/29 21:32 Order name: Urine Culture [facility] 11/29 21:32 Order name: UDS [facility] 11/30 00:37 Order name: Urine Dipstick--Ancillary (enter results) cm6 11/29 21:32 Order name: EKG; Complete Time: 21:33 [facility] 11/29 21:32 Order name: Cardiac monitoring; Complete Time: 22:24 [facility] 11/29 21:32 Order name: EKG - Nurse/Tech; Complete Time: 22:24 [facility] 11/29 21:32 Order name: IV Saline Lock; Complete Time: 22:24 [facility] 11/29 21:32 Order name: Labs collected and sent; Complete Time: 22:24 [facility] 11/29 21:32 Order name: O2 Per Protocol; Complete Time: 22:24 [facility] 11/29 21:32 Order name: O2 Sat Monitoring; Complete Time: 22:24 [facility] 11/29 21:32 Order name: Urine Dipstick-Ancillary (obtain specimen); Complete Time: 00:39 [facility] Administered Medications: 22:00 Drug: Ativan 0.5 mg Route: IVP; Site: left forearm; rr5 23:00 Follow up: Response: No adverse reaction rr5 22:02 Drug: Keppra 500 mg Route: IV; Rate: per protocol; Site: left forearm; rr5 23:00 Follow up: Response: No adverse reaction; IV Status: Completed infusion; IV Intake: rr5 250ml 23:19 Drug: TEGretol 300 mg Route: PO; rr5 11/30 00:20 Follow up: Response: No adverse reaction rr5 11/29 23:51 Drug: Keppra 500 mg Route: IV; Rate: per protocol; Site: right forearm; rr5 11/30 00:50 Follow up: Response: No adverse reaction; IV Status: Completed infusion; IV Intake: rr5 250ml 00:37 Drug: Potassium Effervescent Tablet 25 mEq Route: PO; rr5 01:09 Follow up: Response: No adverse reaction rr5 00:37 Drug: Aspirin 81 mg Route: PO; rr5 01:09 Follow up: Response: No adverse reaction rr5 Disposition: 11/29/18 22:30 Transfer ordered to [facility]. Diagnosis are Epilepsy and recurrent seizures - MELAS Syndrome, Hypokalemia. - Reason for transfer: Higher level of care. - Accepting physician is to proctor. - Condition is Fair. - Problem is new. - Symptoms have improved. Signatures: Dispatcher [employer] EDTony Tran MD MD cha Davies, Jonathon RN RN Flaquito Cruz RN RN rr5 Corrections: (The following items were deleted from the chart) 00:01 08 22:30 11/29/2018 22:30 Transfer ordered to [facility]. [facility] Diagnosis is Epilepsy and recurrent seizures - MELAS Syndrome. Reason for transfer: Higher level of care. Accepting physician is to proctor. Condition is Fair. Problem is new. Symptoms have improved. edwardo 11/30 01:17 00:01 11/29/2018 22:30 Transfer ordered to [facility]. rr5 Diagnosis is Epilepsy and recurrent seizures - MELAS Syndrome; Hypokalemia. Reason for transfer: Higher level of care. Accepting physician is to proctor. Condition is Fair. Problem is new. Symptoms have improved. edwardo
[2018-11-29 22:35] LABS: ALT/SGPT 25 U/L (12-78); AST/SGOT 21 U/L (15-37); Alkaline Phosphatase 82 U/L (45-117); BUN Blood Urea Nitrogen 12 mg/dL (7-18); Bicarbonate 26 mmol/L (21-32); Bilirubin Direct < 0.1 mg/dL (0-0.2); Bilirubin Total 0.2 mg/dL (0.2-1.0); Glucose Level 104 mg/dL (74-106); Magnesium 2.1 mg/dL (1.8-2.4); NT PRO-BNP 52 pg/mL (<125); Potassium 3.1 mmol/L (3.5-5.1); Protein, Total 7.5 g/dL (6.4-8.2); Sodium Level 139 mmol/L (136-145); Troponin (Emerg Dept Use Only) 0.08 ng/mL (0.0-0.045)
[2018-11-29 22:42] LABS: C-Reactive Protein < 2.90 mg/L (<3.00)
[2018-11-29] MEDS ORDERED: CARBAMAZEPINE 200 MG TAB ONE (23:01)
[2018-11-30 00:11] LABS: RBC Red Blood Cell Count 4.13 M/uL (4.33-5.43)
[2018-11-30 00:12] LABS: Absolute Lymphocytes (CBC) 2.8 K/uL (0.7-4.9); Basophils % 0.5 % (0-1.3); Lymphocytes % 31.7 % (15.3-44.8); MPV 9.2 fL (7.6-11.3)
[2018-11-30 00:15] LABS: Protime INR 1.13
[2018-11-30] MEDS ORDERED: ASPIRIN 81 MG CHEWABLE TABLET ONE (00:26)
[2018-11-30] MEDS ORDERED: POTASSIUM 25 MEQ EFFERV TAB ONE (00:26)
[2018-11-30 00:42] LABS: Barbiturates NEGATIVE (NEGATIVE); Benzodiazepines NEGATIVE (NEGATIVE); Cocaine NEGATIVE (NEGATIVE); METHAMPHETAM NEGATIVE (NEGATIVE); Methadone NEGATIVE (NEGATIVE); Opiates NEGATIVE (NEGATIVE); Phencyclidine NEGATIVE (NEGATIVE); THC Cannibis NEGATIVE (NEGATIVE)
[2018-11-30 01:29] LABS: Urine Blood NEGATIVE (NEG); Urine Glucose NEGATIVE (NEG); Urine Protein NEGATIVE (NEG)
[2018-11-30 03:36] VITALS: BP 112/82; TEMP 98.8; O2SAT 99
--- NOTE | 2018-11-30 06:46 | EKG ---
Test Date: 2018-11-30 Test Time: 00:06:21 Claims Configuration Analyst: DEANNA MEASUREMENT RESULTS: Intervals: Rate: 62 FL: 108 QRSD: 78 QT: 442 QTc: 448 [place]: P: 79 FL: 108 QRS: 68 T: 69 INTERPRETIVE STATEMENTS: Sinus rhythm with sinus arrhythmia with short [place] Otherwise normal ECG Compared to ECG 04/16/2012 02:42:30 Ventricular preexcitation no longer present Electronically Signed On 11-30-18 06:45:55 CDT by Petar Morfin
--- NOTE | 2018-11-30 10:27 | RAD REPORT ---
EXAM DESCRIPTION: Karolina Single View11/29/2018 10:15 pm CLINICAL HISTORY: Cough COMPARISON: 2011 FINDINGS: The lungs are hyperaerated The lungs appear clear of acute infiltrate. The heart is normal size IMPRESSION: No acute abnormalities displayed
--- NOTE | 2018-12-01 12:43 | EKG ---
Test Date: 2018-11-30 Test Time: 00:06:50 Demurrage Clerk: DEANNA MEASUREMENT RESULTS: Intervals: Rate: 67 IA: 100 QRSD: 78 QT: 434 QTc: 458 [place]: P: 74 IA: 100 QRS: 67 T: 69 INTERPRETIVE STATEMENTS: Sinus rhythm with sinus arrhythmia with short [place] Otherwise normal ECG Compared to ECG 11/30/2018 00:06:21 No significant changes Electronically Signed On 12-01-18 07:13:49 CDT by Petar Morfin
--- NOTE | 2018-12-02 14:18 | RAD REPORT ---
EXAM DESCRIPTION: CT - Head Brain Wo Cont - 11/30/2018 3:39 am CLINICAL HISTORY: 28 years Male, SEIZURE TECHNIQUE: 5 mm axial images were obtained along with 3 mm reformatted coronal and sagittal images. This exam was performed according to our departmental dose-optimization program, which includes autom ated exposure control, adjustment of the mA and/or kV according to patient size and/or use of iterati ve reconstruction technique. COMPARISON: None. FINDINGS: No acute abnormal extracerebral fluid collections are demonstrated. There are multifocal areas of peripheral decreased attenuation throughout the frontal, temporal, and parietal lobes bilaterally. Findings are suspicious for ischemic infarcts and may represent the sequela of a hypotensive episode. There are no areas of altered attenuation identified to suggest acute hemorrhage, infarction, or mass lesion. The visualized portions of the paranasal sinuses and mastoid air cells are clear. IMPRESSION: 1.Bilateral multifocal infarcts identified suggestive of a hypotensive episode. NOTIFICATION: Results were discussed with Dr. Garcia at 11:10 PM. Electronically signed by: Lavell Crockett MD 11/29/2018 11:10 PM CDT Due to temporary technical issues with the PACS/Fluency reporting system, reports are being signed by the in house radiologist as a courtesy to ensure prompt reporting. The interpreting radiologist is f ully responsible for the content of the report.
== END 2018-11-30 01:17 | disposition short-term general hospital (02) ==
LOC: ER 20:55
DX: G40.802 Other epilepsy, not intractable, without status epilepticus (principal); E88.41 MELAS syndrome; E87.6 Hypokalemia; Z88.1 Allergy status to other antibiotic agents
CPT/HCPCS: 36415; 70450; 71045; 80048; 80076; 80307; 81003; 83735; 83880; 84484; 85025; 85610; 85652; 86140; 87086; 87088; 93005; 96365; 96375; 99285; J1953

== ENCOUNTER 2019-03-16 13:03 | Emergency (ER) | payer OTHER, SELFPAY ==
--- OUTSIDE RECORDS SUMMARY | 2019-03-16 13:05 | XMS REPORT ---
:1990 [facility] [address] [place] [address] Care Team Providers Name Role Phone Unavailable Unavailable Unavailable Problems This patient has no known problems. Allergies, Adverse Reactions, Alerts This patient has no known allergies or adverse reactions. Medications This patient has no known medications. Encounters Start End Encounter Admission Attending Care Care Encounter Date/Time Date/Time Type Type Clinicians Facility Department ID 2018-11-30 Inpatient [facility] [id number] 02:23:00 2018-11-16 Inpatient [facility] [id number] 22:55:57 2018-11-17 2018-11-16 Inpatient [facility] [id number] 00:33:00 22:08:00 2018-10-26 2018-10-26 Inpatient [facility] [id number] 05:23:00 00:57:00
--- OUTSIDE RECORDS SUMMARY | 2019-03-16 13:05 | XMS REPORT | Summary of Care ---
:1990 Author Organization [address] [address] Care Team Providers Name Role Phone Pcp, Patient Does Not Have A Primary Care Provider Reason for Visit Reason Comments Referral/consult CHP Referral Encounter Details Date Type Department Care Team Description 12/19/2018 Patient Outreach [facility] Lisha Prabhakar RN Referral/consult [address] (P Referral) [place], [place] [id number] Allergies Active Allergy Reactions Severity Noted Date Comments Amoxicillin (Bulk) Anaphylaxis 10/18/2018 documented as of this encounter (statuses as of 12/19/2018) Medications Medication Sig Dispensed Refills Start Date End Date Status Arginine HCl, Take 5,000 mg by 450 tablet 5 10/23/2018 Active L-Arginine, 1,000 mg mouth 3 (three) TabIndications: times daily. Bilateral hearing loss, unspecified hearing loss type, MELAS syndrome Citrulline 1 gram/4 Take 5 g by mouth 450 Packet 5 10/23/2018 Active gram PwPkIndications: 3 (three) times Bilateral hearing daily. loss, unspecified hearing loss type, MELAS syndrome CoQ10, Ubiquinol, 200 Take 2 capsules 60 capsule 5 10/23/2018 Active mg capsuleIndications: by mouth daily. Bilateral hearing loss, unspecified hearing loss type, MELAS syndrome atorvastatin 10 mg Take 1 tablet by 30 tablet 5 10/23/2018 Active tabletIndications: mouth every Bilateral hearing evening. loss, unspecified hearing loss type, MELAS syndrome documented as of this encounter (statuses as of 12/19/2018) Active Problems Problem Noted Date Bilateral hearing loss 10/19/2018 documented as of this encounter (statuses as of 12/19/2018) Social History Tobacco Use Types Packs/Day Years Used Date Former Smoker Cigarettes Quit: 05/22/2018 Smokeless Tobacco: Never Used Alcohol Use Drinks/Week oz/Week Comments Not Currently Sex Assigned at Date Recorded Not on file Job Start Date Occupation Industry Not on file Not on file Not on file Travel History Travel Start Travel End No recent travel history available. documented as of this encounter Last Filed Vital Signs Not on filedocumented in this encounter Progress Notes Lisha Prabhakar RN - 12/19/2018 3:57 PM CDTCHP CM called to follow up re: chp referral. ALBERT Stevenson, RN, [facility] Outpatient Solidworks DesignerCommunity Health Program CoordinatorM[facility] O: [phone] M: [phone] documented in this encounter Plan of Treatment Health Maintenance Due Date Last Done Comments VARICELLA VACCINES (1 of 2 - 13+ 2005 2-dose series) DTaP,Tdap,and Td Vaccines (1 - 07/30/2011 Tdap) INFLUENZA VACCINE (#1) 2018 HPV VACCINES Aged Out No longer eligible based on patient's age to complete this topic PNEUMOCOCCAL 0-64 YEARS COMBINED Aged Out No longer eligible based on SERIES patient's age to complete this topic documented as of this encounter Results Not on filedocumented in this encounter Insurance Payer Benefit Plan / Subscriber ID Effective Phone Address Type Group Dates MEDICAID MEDICAID PENDING 2018-[address] [place] [address] documented as of this encounter Advance Directives Type Date Recorded 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
--- OUTSIDE RECORDS SUMMARY | 2019-03-16 13:06 | XMS REPORT | Summary of Care ---
:1990 Author Organization [address] [address] Care Team Providers Name Role Phone Pcp, Patient Does Not Have A Primary Care Provider Reason for Visit Reason Comments Referral/consult chp referral Encounter Details Date Type Department Care Team Description 01/17/2019 Patient Outreach [facility] Lisha Prabhakar RN Referral/consult [address] (p referral) [place], [place] [address] Allergies Active Allergy Reactions Severity Noted Date Comments Amoxicillin (Bulk) Anaphylaxis 10/18/2018 documented as of this encounter (statuses as of 01/17/2019) Medications Medication Sig Dispensed Refills Start Date [...] as of this encounter (statuses as of 01/17/2019) Active Problems Problem Noted Date Bilateral hearing loss 10/19/2018 documented as of this encounter (statuses as of 01/17/2019) Social History Tobacco Use Types Packs/Day Years [...] encounter Progress Notes Lisha Prabhakar RN - 01/17/2019 11:33 AM CDTPt's listed number is disconnected. CHP referral will be closed. 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
--- NOTE | 2019-03-16 13:21 | ER ---
Nurse's Notes [facility] Name: Lucien Calvillo Jr Age: 28 yrs Sex: Male : 1990 Arrival Date: 03/16/2019 Time: 13:05 Bed 12 Private MD: Diagnosis: Dental caries;Dental alveolar anomalies Presentation: 03/16 13:10 Presenting complaint: Patient states: left sided dental pain. Transition of care: la1 patient was not received from another setting of care. Onset of symptoms was March 16, 2019. Risk Assessment: Do you want to hurt yourself or someone else? Patient reports no desire to harm self or others. Initial Sepsis Screen: Does the patient meet any 2 criteria? No. Patient's initial sepsis screen is negative. Does the patient have a suspected source of infection? No. Patient's initial sepsis screen is negative. Care prior to arrival: None. 13:10 Method Of Arrival: Ambulatory la1 13:10 Acuity: GINNY 5 la1 Historical: - Allergies: 13:10 Amoxicillin; la1 - PMHx: 13:10 CVA; MELAS; Seizures; la1 - Immunization history:: Adult Immunizations up to date. - Social history:: Smoking status: Patient uses tobacco products, denies chronic smoking, but will smoke occasionally. - Ebola Screening: : No symptoms or risks identified at this time. - Family history:: not pertinent. Screenin:12 Abuse screen: Denies threats or abuse. Abuse screen: Denies threats or abuse. la1 Nutritional screening: No deficits noted. Tuberculosis screening: No symptoms or risk factors identified. Fall Risk None identified. Assessment: 13:11 General: Appears in no apparent distress. Behavior is calm, cooperative. Pain: la1 Complains of pain in left jaw area. Neuro: Level of Consciousness is awake, alert, obeys commands, Oriented to person, place, time, situation. Cardiovascular: Capillary refill < 3 seconds Patient's skin is warm and dry. Respiratory: Airway is patent Respiratory effort is even, unlabored, Respiratory pattern is regular, symmetrical. GI: No signs and/or symptoms were reported involving the gastrointestinal system. : No signs and/or symptoms were reported regarding the genitourinary system. EENT: Poor dentition noted. Vital Signs: 13:11 BP 113 / 74; Pulse 74; Resp 16; Temp 98.1; Pulse Ox 100% ; Weight 47.63 kg; Height 5 la1 ft. 4 in. (162.56 cm); 13:11 Body Mass Index 18.02 (47.63 kg, 162.56 cm) la1 ED Course: 13:05 Patient arrived in ED. as 13:10 Arm band placed on left wrist. la1 13:11 Triage completed. la1 13:12 Patient has correct armband on for positive identification. la1 13:12 No provider procedures requiring assistance completed. Patient did not have IV access la1 during this emergency room visit. 13:13 Tony Garcia MD is Attending Physician. edwardo 13:21 Pastor Valdez DDS is Referral Physician. [facility] Administered Medications: 13:26 Drug: Clindamycin 300 mg Route: PO; la1 13:26 Follow up: Response: No adverse reaction la1 13:26 Drug: Motrin 400 mg Route: PO; la1 13:27 Follow up: Response: No adverse reaction la1 Outcome: 13:20 Discharge ordered by . [facility] 13:27 Discharged to home ambulatory. la1 13:27 Condition: stable 13:27 Discharge instructions given to patient, Instructed on discharge instructions, follow up and referral plans. medication usage, Demonstrated understanding of instructions, follow-up care, medications, Prescriptions given X 2. 13:27 Patient left the ED. la1 Signatures: Tony Garcia MD MD cha Martinez, Amelia as Ariella Santos, RN RN aa5 Kishor Crowell RN RN la1 Corrections: (The following items were deleted from the chart) 15:24 13:14 Ariella Santos, DEANN is Primary Nurse. [facility]
--- NOTE | 2019-03-16 13:22 | EDPHYS ---
Physician Documentation [facility] Name: Lucien Calvillo Jr Age: 28 yrs Sex: Male : 1990 Arrival Date: 03/16/2019 Time: 13:05 Bed 12 Private MD: ED Physician Tony Garcia HPI: 03/16 13:16 This 28 yrs old Male presents to ER via Ambulatory with complaints of edwardo Toothache. 13:16 The patient presents with broken tooth/teeth, pain, redness, swelling. The problem is edwardo located in the gums, left buccal mucosa and upper left first bicuspid. Onset: The symptoms/episode began/occurred 3 day(s) ago. Duration: The symptoms are continuous, and are steadily getting worse. Modifying factors: The symptoms are alleviated by nothing, the symptoms are aggravated by chewing. Associated signs and symptoms: The patient has no apparent associated signs or symptoms. Severity of symptoms: At their worst the symptoms were mild, moderate, in the emergency department the symptoms are unchanged. The patient has experienced similar episodes in the past, several times. Historical: - Allergies: 13:10 Amoxicillin; la1 - PMHx: 13:10 CVA; MELAS; Seizures; la1 - Immunization history:: Adult Immunizations up to date. - Social history:: Smoking status: Patient uses tobacco products, denies chronic smoking, but will smoke occasionally. - Ebola Screening: : No symptoms or risks identified at this time. - Family history:: not pertinent. ROS: 13:16 Constitutional: Negative for fever, chills, and weight loss, Eyes: Negative for injury, edwardo pain, redness, and discharge, Neck: Negative for injury, pain, and swelling, Cardiovascular: Negative for chest pain, palpitations, and edema, Respiratory: Negative for shortness of breath, cough, wheezing, and pleuritic chest pain, Abdomen/GI: Negative for abdominal pain, nausea, vomiting, diarrhea, and constipation, Back: Negative for injury and pain, : Negative for injury, bleeding, discharge, and swelling, MS/Extremity: Negative for injury and deformity, Skin: Negative for injury, rash, and discoloration, Neuro: Negative for headache, weakness, numbness, tingling, and seizure, Psych: Negative for depression, anxiety, suicide ideation, homicidal ideation, and hallucinations, Allergy/Immunology: Negative for hives, rash, and allergies, Endocrine: Negative for neck swelling, polydipsia, polyuria, polyphagia, and marked weight changes, Hematologic/Lymphatic: Negative for swollen nodes, abnormal bleeding, and unusual bruising. 13:16 ENT: Positive for Teeth pain Exam: 13:16 Constitutional: This is a well developed, well nourished patient who is awake, alert, edwardo and in no acute distress. Eyes: Pupils equal round and reactive to light, extra-ocular motions intact. Lids and lashes normal. Conjunctiva and sclera are non-icteric and not injected. Cornea within normal limits. Periorbital areas with no swelling, redness, or edema. Neck: Trachea midline, no thyromegaly or masses palpated, and no cervical lymphadenopathy. Supple, full range of motion without nuchal rigidity, or vertebral point tenderness. No Meningismus. Chest/axilla: Normal chest wall appearance and motion. Nontender with no deformity. No lesions are appreciated. Cardiovascular: Regular rate and rhythm with a normal S1 and S2. No gallops, murmurs, or rubs. Normal PMI, no JVD. No pulse deficits. Respiratory: Lungs have equal breath sounds bilaterally, clear to auscultation and percussion. No rales, rhonchi or wheezes noted. No increased work of breathing, no retractions or nasal flaring. Abdomen/GI: Soft, non-tender, with normal bowel sounds. No distension or tympany. No guarding or rebound. No evidence of tenderness throughout. Back: No spinal tenderness. No costovertebral tenderness. Full range of motion. Male : Normal genitalia with no discharge or lesions. Skin: Warm, dry with normal turgor. Normal color with no rashes, no lesions, and no evidence of cellulitis. MS/ Extremity: Pulses equal, no cyanosis. Neurovascular intact. Full, normal range of motion. Neuro: Awake and alert, GCS 15, oriented to person, place, time, and situation. Cranial nerves II-XII grossly intact. Motor strength 5/5 in all extremities. Sensory grossly intact. Cerebellar exam normal. Normal gait. Psych: Awake, alert, with orientation to person, place and time. Behavior, mood, and affect are within normal limits. 13:16 Head/face: Noted is swelling, tenderness, that is mild, of the left cheek and left jaw. Vital Signs: 13:11 BP 113 / 74; Pulse 74; Resp 16; Temp 98.1; Pulse Ox 100% ; Weight 47.63 kg; Height 5 la1 ft. 4 in. (162.56 cm); 13:11 Body Mass Index 18.02 (47.63 kg, 162.56 cm) la1 MDM: 13:13 Patient medically screened. [facility] Administered Medications: 13:26 Drug: Clindamycin 300 mg Route: PO; la1 13:26 Follow up: Response: No adverse reaction la1 13:26 Drug: Motrin 400 mg Route: PO; la1 13:27 Follow up: Response: No adverse reaction la1 Disposition: 03/16/19 13:20 Discharged to Home. Impression: Dental caries, Dental alveolar anomalies. - Condition is Stable. - Discharge Instructions: Dental Pain, Dental Pain, [id number]. - Prescriptions for Clindamycin HCl 300 mg Oral Capsule - take 1 capsule by ORAL route every 8 hours for 7 days; 28 capsule. Tylenol- Codeine #3 300-30 mg Oral Tablet - take 2 tablets by ORAL route every 6 hours As needed; 24 tablet. - Medication Reconciliation Form, Thank You Letter, Antibiotic Education, Prescription Opioid Use, Work release form form. - Follow up: Private Physician; When: 2 - 3 days; Reason: Recheck today's complaints, Continuance of care, Re-evaluation by your physician. Follow up: Pastor Valdez DDS; When: 2 - 3 days; Reason: Recheck today's complaints, Continuance of care, Re-evaluation by your physician. - Problem is new. - Symptoms have improved. Signatures: Tony Garcia MD MD cha Attema, Lee RN RN la1 Corrections: (The following items were deleted from the chart) 13:21 13:20 03/16/2019 13:20 Discharged to Home. Impression: Dental caries; Dental alveolar edwardo anomalies. Condition is Stable. Forms are Work release form, Medication Reconciliation Form, Thank You Letter, Antibiotic Education, Prescription Opioid Use. Follow up: Private Physician; When: 2 - 3 days; Reason: Recheck today's complaints, Continuance of care, Re-evaluation by your physician. Problem is new. Symptoms have improved. [facility] 13:27 13:21 03/16/2019 13:20 Discharged to Home. Impression: Dental caries; Dental alveolar la1 anomalies. Condition is Stable. Forms are Work release form, Medication Reconciliation Form, Thank You Letter, Antibiotic Education, Prescription Opioid Use. Follow up: Private Physician; When: 2 - 3 days; Reason: Recheck today's complaints, Continuance of care, Re-evaluation by your physician. Follow up: Pastro Valdez; When: 2 - 3 days; Reason: Recheck today's complaints, Continuance of care, Re-evaluation by your physician. Problem is new. Symptoms have improved. edwardo
[2019-03-16] MEDS ORDERED: CLINDAMYCIN HCL 150 MG CAP ONE (13:24)
[2019-03-16] MEDS ORDERED: IBUPROFEN 400 MG TAB ONE (13:24)
[2019-03-16 13:32] VITALS: BP 113/74; TEMP 98.1; O2SAT 100
== END 2019-03-16 13:27 | disposition home or self-care (01) ==
LOC: ER 13:03
DX: K02.9 Dental caries, unspecified (principal); M26.70 Unspecified alveolar anomaly; Z88.1 Allergy status to other antibiotic agents; Z72.0 Tobacco use
CPT/HCPCS: 99283

== ENCOUNTER 2019-06-07 21:27 | Emergency (ER) | payer SELFPAY ==
--- OUTSIDE RECORDS SUMMARY | 2019-06-07 21:29 | XMS REPORT ---
:1990 [facility] [address] [place] [address] Care Team Providers Name Role Phone Unavailable Unavailable Unavailable Problems This patient has no known problems. Allergies, Adverse Reactions, Alerts This patient has no known allergies or adverse reactions. Medications This patient has no known medications. Encounters Start End Encounter Admission Attending Care Care Encounter Date/Time Date/Time Type Type Clinicians Facility Department ID 2018-11-30 Inpatient [facility] [id number] 02:23:00 2018-11-16 Inpatient [facility] [id number] 22:55:57 2018-11-17 2018-11-16 Inpatient [facility] [id number] 00:33:00 22:08:00 2018-10-26 2018-10-26 Inpatient [facility] [id number] 05:23:00 00:57:00
[2019-06-07] MEDS ORDERED: ONDANSETRON 4 MG (ODT) TAB ONE (22:09)
--- NOTE | 2019-06-07 22:55 | EDPHYS ---
Physician Documentation [facility] Name: Lucien Calvillo Jr Age: 28 yrs Sex: Male : 1990 Arrival Date: 06/07/2019 Time: 21:29 Bed 1 Private MD: ED Physician Meek Castorena HPI: 06/08 06:21 This 28 yrs old Male presents to ER via Ambulatory with complaints of tw4 Vomiting/Diarrhea, Abdominal Pain. 06:21 The patient presents to the emergency department with nausea, vomiting. Onset: The tw4 symptoms/episode began/occurred today. Possible causes: sick contacts, by family, son. The symptoms are aggravated by nothing. The symptoms are alleviated by nothing. Severity of symptoms: At their worst the symptoms were mild in the emergency department the symptoms are unchanged. The patient has not experienced similar symptoms in the past. Historical: - Allergies: 06/07 21:56 Amoxicillin; jv1 - Home Meds: 21:56 None [Active]; jv1 - PMHx: 21:56 CVA; MELAS; Seizures; jv1 - PSHx: 21:56 None; jv1 - Immunization history:: Adult Immunizations not up to date. - Coronavirus screen:: The patient has NOT traveled to [place], [place], or [place] in the past 14 days. The patient has NOT had contact with known/suspected case of Coronavirus?. - Social history:: Smoking status: Patient/guardian denies using. - Ebola Screening: : No symptoms or risks identified at this time. ROS: 06/08 06:21 Constitutional: Negative for fever, chills, and weight loss, ENT: Negative for injury, tw4 pain, and discharge, Cardiovascular: Negative for chest pain, palpitations, and edema, Respiratory: Negative for shortness of breath, cough, wheezing, and pleuritic chest pain, Back: Negative for injury and pain, MS/Extremity: Negative for injury and deformity, Skin: Negative for injury, rash, and discoloration, Neuro: Negative for headache, weakness, numbness, tingling, and seizure. Abdomen/GI: Positive for nausea and vomiting, nausea, vomiting, Negative for abdominal pain, vomiting, abdominal cramps, abdominal distension. Exam: 06:21 Constitutional: This is a well developed, well nourished patient who is awake, alert, tw4 and in no acute distress. Head/Face: Normocephalic, atraumatic. Chest/axilla: Normal chest wall appearance and motion. Nontender with no deformity. No lesions are appreciated. Cardiovascular: Regular rate and rhythm with a normal S1 and S2. No gallops, murmurs, or rubs. Normal PMI, no JVD. No pulse deficits. Respiratory: Lungs have equal breath sounds bilaterally, clear to auscultation and percussion. No rales, rhonchi or wheezes noted. No increased work of breathing, no retractions or nasal flaring. Abdomen/GI: Soft, non-tender, with normal bowel sounds. No distension or tympany. No guarding or rebound. No evidence of tenderness throughout. Back: No spinal tenderness. No costovertebral tenderness. Full range of motion. MS/ Extremity: Pulses equal, no cyanosis. Neurovascular intact. Full, normal range of motion. Neuro: Awake and alert, GCS 15, oriented to person, place, time, and situation. Cranial nerves II-XII grossly intact. Motor strength 5/5 in all extremities. Sensory grossly intact. Cerebellar exam normal. Normal gait. Vital Signs: 06/07 21:54 BP 110 / 86 LA (auto/reg); Pulse 97; Resp 18; Temp 99.5; Pulse Ox 100% on R/A; Pain jp3 4/10; 21:54 Weight 46.27 kg; Height 5 ft. 5 in. (165.10 cm); jv1 22:00 BP 110 / 80; Pulse 89; Resp 18; Temp 98.5; Pulse Ox 98% ; Pain 0/10; jv1 23:00 BP 115 / 82; Pulse 89; Resp 18; Temp 98.5; Pulse Ox 100% ; Pain 0/10; jv1 21:54 Body Mass Index 16.97 (46.27 kg, 165.10 cm) jv1 MDM: 21:47 Patient medically screened. tw4 06/08 06:21 Differential diagnosis: gastritis, viral gastroenteritis, gastroenteritis. Data tw4 reviewed: vital signs, nurses notes. Data interpreted: Pulse oximetry: Interpretation: normal. Counseling: I had a detailed discussion with the patient and/or guardian regarding: the historical points, exam findings, and any diagnostic results supporting the discharge/admit diagnosis. Medication response: Zofran relieved the patient's nausea. Response to treatment: and as a result, I will discharge patient. Special discussion: Based on the patient's Hx, exam, and Dx evaluation, there is no indication for emergent surgery or inpatient Tx. It is understood by the patient/guardian that if the Sx's persist or worsen they need to return immediately for re-evaluation. I discussed with the patient/guardian in detail that at this point there is no indication for admission to the hospital. It is understood, however, that if the symptoms persist or worsen the patient needs to return immediately for re-evaluation. Administered Medications: 06/07 22:13 Drug: Zofran 4 mg Route: PO; jv1 23:05 Follow up: Response: No adverse reaction; Nausea is decreased jv1 Disposition: 06/07/19 22:55 Discharged to Home. Impression: Vomiting, unspecified. - Condition is Stable. - Discharge Instructions: Nausea and Vomiting, Adult. - Prescriptions for Zofran 4 mg Oral Tablet - take 1 tablet by ORAL route every 12 hours As needed; 6 tablet. - Medication Reconciliation Form, Thank You Letter, Antibiotic Education, Prescription Opioid Use form. - Follow up: Private Physician; When: Upon discharge from the Emergency Department; Reason: Recheck today's complaints, Continuance of care. - Problem is new. - Symptoms have improved. Signatures: Meek Castorena MD MD tw4 Annette Marvin RN RN jv1 Corrections: (The following items were deleted from the chart) 23:22 22:55 06/07/2019 22:55 Discharged to Home. Impression: Vomiting, unspecified. Condition jv1 is Stable. Forms are Medication Reconciliation Form, Thank You Letter, Antibiotic Education, Prescription Opioid Use. Follow up: Private Physician; When: Upon discharge from the Emergency Department; Reason: Recheck today's complaints, Continuance of care. Problem is new. Symptoms have improved. tw4
--- NOTE | 2019-06-07 22:55 | ER ---
Nurse's Notes [facility] Name: Lucien Calvillo Jr Age: 28 yrs Sex: Male : 1990 Arrival Date: 06/07/2019 Time: 21:29 Bed 1 Private MD: Diagnosis: Vomiting, unspecified Presentation: 06/07 21:52 Presenting complaint: Patient states: he has been having nausea, vomiting, diarrhea jv1 since 2:00 am today. Transition of care: patient was not received from another setting of care. Onset of symptoms was June 07, 2019 at 02:00. Risk Assessment: Do you want to hurt yourself or someone else? Patient reports no desire to harm self or others. Initial Sepsis Screen: Does the patient meet any 2 criteria? No. Patient's initial sepsis screen is negative. Does the patient have a suspected source of infection? No. Patient's initial sepsis screen is negative. Care prior to arrival: None. 21:52 Method Of Arrival: Ambulatory jv1 21:52 Acuity: GINNY 4 jv1 Triage Assessment: 21:51 General: Appears in no apparent distress. uncomfortable, Behavior is calm, cooperative. jv1 Pain: Denies pain. GI: Reports diarrhea, nausea, vomiting, since 2am today. Historical: - Allergies: 21:56 Amoxicillin; jv1 - Home Meds: 21:56 None [Active]; jv1 - PMHx: 21:56 CVA; MELAS; Seizures; jv1 - PSHx: 21:56 None; jv1 - Immunization history:: Adult Immunizations not up to date. - Coronavirus screen:: The patient has NOT traveled to [place], [place], or [place] in the past 14 days. The patient has NOT had contact with known/suspected case of Coronavirus?. - Social history:: Smoking status: Patient/guardian denies using. - Ebola Screening: : No symptoms or risks identified at this time. Screenin:26 Abuse screen: Denies threats or abuse. Nutritional screening: nausea, vomiting, jv1 diarrhea since 2am. Tuberculosis screening: No symptoms or risk factors identified. Fall Risk None identified. Assessment: 22:23 General: Appears in no apparent distress. slender, well groomed, Behavior is calm, jv1 cooperative, appropriate for age. Pain: Complains of pain in abdomen Pain does not radiate. Pain currently is 5 out of 10 on a pain scale. Neuro: Level of Consciousness is awake, alert, obeys commands, Oriented to person, place, time, situation. Cardiovascular: Denies chest pain, Heart tones S1 S2 Capillary refill < 3 seconds. Respiratory: Airway is patent Respiratory effort is even, unlabored, Respiratory pattern is regular, Breath sounds are clear bilaterally. GI: Abdomen is flat, non-distended. : No signs and/or symptoms were reported regarding the genitourinary system. EENT: No signs and/or symptoms were reported regarding the EENT system. Derm: No signs and/or symptoms reported regarding the dermatologic system. Musculoskeletal: Circulation, motion, and sensation intact. Capillary refill < 3 seconds. 22:52 Reassessment: Patient and/or family updated on plan of care and expected duration. Pain jv1 level reassessed. Patient is alert, oriented x 3, equal unlabored respirations, skin warm/dry/pink. Patient denies pain at this time. Patient states feeling better. Patient states symptoms have improved. 23:00 Reassessment: Patient and/or family updated on plan of care and expected duration. Pain jv1 level reassessed. Patient is alert, oriented x 3, equal unlabored respirations, skin warm/dry/pink. Patient denies pain at this time. Patient states feeling better. Patient states symptoms have improved. drank some fluids and no vomiting noted.. Vital Signs: 21:54 BP 110 / 86 LA (auto/reg); Pulse 97; Resp 18; Temp 99.5; Pulse Ox 100% on R/A; Pain jp3 4/10; 21:54 Weight 46.27 kg; Height 5 ft. 5 in. (165.10 cm); jv1 22:00 BP 110 / 80; Pulse 89; Resp 18; Temp 98.5; Pulse Ox 98% ; Pain 0/10; jv1 23:00 BP 115 / 82; Pulse 89; Resp 18; Temp 98.5; Pulse Ox 100% ; Pain 0/10; jv1 21:54 Body Mass Index 16.97 (46.27 kg, 165.10 cm) jv1 ED Course: 21:29 Patient arrived in ED. jg7 21:47 Meek Castorena MD is Attending Physician. tw4 21:54 Patient maintains SpO2 saturation greater than 95% on room air. jp3 21:54 Safety checks: Family/friend present: yes. Family/friends encouraged to stay with jp3 patient. Patient has correct armband on for positive identification. Bed in low position. Call light in reach. Verbal reassurance given. Pulse ox on. NIBP on. 22:32 Arm band placed on right wrist. Patient placed in an exam room, Patient notified of jv1 wait time. 23:20 Triage completed. jv1 23:20 No provider procedures requiring assistance completed. Patient did not have IV access jv1 during this emergency room visit. Administered Medications: 22:13 Drug: Zofran 4 mg Route: PO; jv1 23:05 Follow up: Response: No adverse reaction; Nausea is decreased jv1 Outcome: 22:55 Discharge ordered by . maritza 23:20 Discharged to home ambulatory. jv1 23:20 Condition: improved 23:20 Discharge instructions given to patient, family, Instructed on discharge instructions, follow up and referral plans. medication usage, Demonstrated understanding of instructions, follow-up care, medications. 23:22 Patient left the ED. jv1 Signatures: Meek Castorena MD MD tw4 [facility] jp3 Annette Marvin RN RN jv1 Terrie [id number]
== END 2019-06-07 23:22 | disposition home or self-care (01) ==
LOC: ER 21:27
DX: R11.10 Vomiting, unspecified (principal); Z88.1 Allergy status to other antibiotic agents
CPT/HCPCS: 99284

== ENCOUNTER 2020-02-20 15:58 | Emergency (ER) | payer OTHER ==
--- OUTSIDE RECORDS SUMMARY | 2020-02-20 16:03 | XMS REPORT | Continuity of Care Document ---
:1990 Author Organization [facility] Care Team Providers Name Role Phone [facility] Unavailable Un available Problems Problem Status Onset Classification Date Comments Sourc e Date Reported SEIZURES Active 12/01/19 [facility] edical 19 Center STROKE Active 11/17/19 [facility] edical SYMPTOMS 19 Center MELAS SYNDROME Active 11/17[place] [place] [facility] STROKE Active 10/29/19 [facility] Rehabilita tion AMS Active 10/27/19 [facility] edical 19 Center MELAS, LACTIC Active 10/27/19 Nat[facility] as Medical ACIDOSIS 19 Center STRK-LIKE EPISO MELAS SYNDROME Active [facility] Center CEREBRAL Active [facility] [place] [facility] INFARCTION, Center UNSPECIFIED Medications Medication Details Route Status Patient Ordering Order Source Instructions Provider Date carBAMazepine 100 300 mg = 3 tab, Active 12/01[facility] mg oral tablet, PO, Q12H, # 360 2019 Medical chewable tab, 3 Center Refill(s) Occupational See Active 12/01[facility] Therapy Instructions, 2019 [facility] Evaluate and Treat 3 times per week for 4 weeks, # 1 unit, 0 Refill(s) Physical Therapy See [facility], 2019 [facility] Evaluate and Treat 3 times per week for 4 weeks, # 1 unit, 0 Refill(s) carBAMazepine 200 200 mg = 1 tab, Inactive 12/01 [facility] [place] mg oral tablet PO, Q12H, # 180 2019 edical tab, 3 Center Refill(s) carBAMazepine 200 200 mg = 1 tab, No Longer [facility] mg oral tablet PO, Q12H, 3 Active 2019 Medic al Refill(s) [place] Levetiracetam 500 mg, Route: Inactive 11/30[facility] PO, Drug form: 2019 Medical TAB, Q12H, Center Dosing Weight 38.56, kg, Start date: 11/30/18 11:00:00 CDT, Duration: 30 day, Stop date: 12/30/18 9:00:00 CDT Co-Q10 Notes: (Same No Longer [place] As: Co-Enzyme Active 2019 [facility] Q10) [place] L-Arginine 4,000 mg, Inactive [place] Route: PO, Drug 2019 Medical form: TAB, TID, Center Dosing Weight 38.56, kg, Start date: 11/30/18 9:00:00 CDT, Duration: 30 day, Stop date: 12/29/18 17:00:00 CDT Levocarnitine Notes: (Same No Longer [place] as:Carnitor) Active 2019 [facility] Carbamazepine Notes: With [place] Longer [place] food. (Same As: Active 2019 [facility] Tegretol) Center heparin Notes: porcine [place]er [place] heparin Active 2019 [facility] Melatonin Notes: (Same [place] Long[place] as: Melatonin) Active 2019 [facility] L-Arginine Notes: Same as: No Longer [place] L-arginine Active 2019 [facility] Co-Q10 200 mg 800 mg, PO, Active [place]asha as oral capsule TID, # 360 2019 Medical caplet, 0 Center Refill(s) levOCARNitine 330 330 mg = 1 tab, Active [place] mg oral tablet PO, TID, # 90 2019 Med ical tab, 0 Center Refill(s) L-Arginine 1000 4,000 mg, PO, Active [place] mg oral tablet TID, # 90 tab, 2019 Me dical 0 Refill(s) Center lacosamide 100 mg 100 mg = 1 tab, Active [place] oral tablet PO, Q12H, # 60 2019 Medic al tab, 0 Center Refill(s) L-Arginine Notes: Same as: No Longer [place] L-arginine Active 2019 [facility] Vimpat Notes: Same as: No Longer Natasha as Vimpat Active 2019 [facility] Vimpat Notes: Same as: No Longer [place] as Vimpat Active 2019 [facility] MEDICATION Center WASTE Product Size: 200 mg Product Wasted: ___ mg Carnitor Notes: (Same No Longer [place] as:Carnitor) Active 2019 [facility] Notes: Same as: Inactive s [facility] 2019 Medical MEDICATION Center WASTE Product Size: 200 mg Product Wasted: ___ mg L-Arginine Notes: Same as: No Longer [place] L-arginine Active 2019 Medical Center ubiquinone 800 mg, 4 cap, [place]er [place] Route: PO, Drug Active 2019 Medical form: CAP, TID, Center Dosing Weight 50, kg, Start date: 11/17/18 9:00:00 CDT, Stop date: 12/16/18 9:00:00 CDT, 0 Saline Flush 0.9% Notes: (Same No Longer [place] as: BD Active 2019 Medical Posiflush) Center olanzapine Notes: (Same Inactive s as: ZyPREXA) 2019 Medical Center Vimpat Notes: Same as: Inactive [facility] [place] R-Gene 10 4 gm + Notes: (Same No Longer [place] empty container 1 as: R-Gene 10) Active 2019 Medical ea Center Docusate Notes: (Same No Longer [place] as: Colace) (Do Active 2019 Medical Not Crush) Center sennosides, [facility] Notes: (Same No Longer [place] as: Senokot) Active 2019 Medical Center olanzapine Notes: (Same No Longer [place] as as: ZyPREXA) Active 2019 Medical Center L-Arginine 5,000 mg, Inactive [place] Route: IV, TID, 2019 Medical Dosing Weight Center 50, kg, Priority: NOW, Start date: 11/17/18 8:19:00 CDT, Duration: 30 day, Stop date: 12/16/18 17:00:00 CDT heparin Notes: porcine No Longer Natasha s heparin Active 2019 Medical Center D5W 1,000 mL 1,000 mL, Rate: No Longer H [place] 100 ml/hr, Active 2019 Medical Infuse over: 10 Center hr, Route: IV, Dosing Weight 50 kg, Total Volume: 1,000, Start date: 11/17/18 7:19:00 CDT, Duration: 30 day, Stop date: 12/17/18 7:18:00 CDT, 1.52, m2, 0 [place]im[place] Notes: Same as: [place] Vimpat 2019 Medical MEDICATION Center WASTE Product Size: 200 mg Product Wasted: ___ mg Docusate 100 mg, Route: [place] PO, ONCE, 2019 Medical Dosing Weight Center 50, kg, Start date: 11/17/18 4:48:00 CDT, Stop date: 11/17/18 4:48:00 CDT L-Arginine 5,000 mg, PO, [place] TID, 0 2019 Medical Refill(s) Center lacosamide 50 MG 50 mg = 1 tab, No Longer [place] Oral Tablet PO, BID, # 30 Active 2019 Medica l [Vimpat] day, 0 Center Refill(s) CoQ10 200 mg, PO, No Longer [facility] Daily, 0 Active 2019 Medical Refill(s) Center olanzapine 5 mg, PO, Q12H, No Longer [facility] # 20 tab, 0 Active 2019 Medical Refill(s) Center Saline Flush 0.9% Notes: (Same No Longer [facility] as: BD Active 2019 Medical Posiflush) Center iodixanol 100 mL, Route: Inactive [place]asha as IVP, Drug Form: 2019 Medical SOLN, Dosing Center Weight 61.364, kg, ONCALL, STAT, Start date: 11/16/18 22:35:00 CDT, Duration: 1 doses or times, Dose = 2.2ml/kg, Max dose = 100ml -- "To be infused by Radiology Staff ONLY" Saline Flush 0.9% Notes: (Same No Longer [facility] as: BD Active 2019 Medical Posiflush) Center lacosamide 50 mg 50 mg = 1 tab, Active [place] oral tablet PO, BID, # 120 2019 Medic al tab, 2 Center Refill(s) olanzapine 5 MG 5 mg = 1 tab, Active [place] Oral Tablet PO, PRN, PRN 2019 Medical Other -See Center Comment, PRN Q12, # 60 tab, 0 Refill(s) ubiquinone 200 mg 400 mg = 2 cap, Active [place] oral capsule PO, Daily, # 2019 Medica l 120 cap, 0 Center Refill(s) melatonin 3 mg 6 mg = 2 tab, Active [place] oral tablet PO, Bedtime, 2019 Medical PRN Sleep, # 60 Center tab, 0 Refill(s) lacosamide 50 mg 50 mg = 1 tab, Inactive [place] oral tablet PO, BID, # 7 2019 Medical tab, 0 Center Refill(s) olanzapine 5 MG 5 mg = 1 tab, Inactive 11/05/ H [place] Oral Tablet PO, PRN, PRN 2019 Medical Other -See Center Comment, # 60 tab, 0 Refill(s) arginine 500 mg 5,000 mg = 10 Active [place] oral capsule cap, PO, TID, # 2019 Med ical 1800 cap, 0 Center Refill(s) D10W 980.75 mL + 980.75 mL, No Longer [place] sodium chloride Rate: 100 Active 2019 Medica l 23.4% IV 77 mEq ml/hr, Infuse Ce nter over: 10 hr, Route: IV, Dosing Weight 50 kg, Total Volume: 1,000, Priority: Routine, Start date: 11/04/18 20:55:00 CDT, Duration: 30 day, Stop date: 12/04/18 20:54:00 CDT, 1.55, m2, 0 magnesium sulfate Notes: WASTE: Inactive [place] F/P - Sink; E - 2019 [facility] Bin Potassium 40 mEq, 2 tab, Inactive Natasha as Chloride Route: PO, Drug 2019 Medical form: ERTAB, Center ONCE, Dosing Weight 50, kg, Priority: NOW, Start date: 11/03/18 12:40:00 CDT, Stop date: 11/03/18 12:40:00 CDT, 0 arginine Notes: (Same Inactive [place] as: Arginine) 2019 [facility] potassium 20 mEq, 100 mL, [place] chloride Route: IVPB, 2019 Medical Drug form: INJ, Center Q2H, Start date: 11/03/18 8:30:00 CDT, Duration: 3 doses or times, Stop date: 11/03/18 12:00:00 CDT, 0 Potassium 10 mEq, Route: Inactive Natasha as Chloride IVPB, Q1H, 2018 Medical Dosing Weight Center 50, kg, Total Dose = 60 meq, Start date: 11/03/18 7:22:00 CDT, Duration: 6 doses or times, Stop date: 11/03/18 12:22:00 CDT, Peripheral Line Magnesium Sulfate Notes: WASTE: Inactive [place] F/P - Sink; E - 2018 [facility] Bin magnesium sulfate Notes: WASTE: Inactive [place] F/P - Sink; E - 2019 [facility] Bin Magnesium Sulfate Notes: WASTE: Inactive [place] F/P - Sink; E - [facility] Bin Potassium Notes: (Same Inactive [facility] Chloride as: KCL) 2019 Medical Infuse over 2 Center hours. potassium Notes: (Same Inactive [facility] chloride as: Potassium 2019 Medical Chloride) Center Marinol Notes: (Same No Longer [facility] as: Marinol) Active 2019 [facility] Magnesium Sulfate Notes: WASTE: Inactive [place] F/P - Sink; E - 2018 [facility] Bin Potassium 20 mEq, 100 mL, [place] Chloride Route: IVPB, 2018 Medical Drug form: INJ, Center Q2H, Dosing Weight 50, kg, Total dose = 40 mEq, Start date: 10/31/18 8:00:00 CDT, Duration: 2 doses or times, Stop date: 10/31/18 10:00:00 CDT, Central Line, 0 Potassium 10 mEq, Route: Inactive Natasha as Chloride IVPB, Q1H, 2018 Medical Dosing Weight Center 50, kg, Total Dose = 40 meq, Start date: 10/31/18 7:00:00 CDT, Duration: 4 doses or times, Stop date: 10/31/18 10:00:00 CDT, Peripheral Line Melatonin Notes: (Same [place] Long[place] as: Melatonin) Active 2019 Medical [place] Phenergan Notes: Do not No Longer Natasha as give IV push. Active 2019 Medical (Same as: Center Phenergan) Vancomycin 2001 mg: Inactive [facility] infuse over 2.5 2019 Medical hours For Center adult patients only: Round to nearest 250 mg per Medical Staff approval MEDICATION WASTE Product Size: 1000 mg Product Wasted: ___ mg potassium Notes: (Same Inactive [facility] chloride as: KCL) 2019 Medical Infuse no Center faster than 10 mEq/hr if given peripherally. olanzapine Notes: (Same No Longer [place]asha as As: ZyPREXA Active 2019 Medical IM). Center Reconstitute with 2.1 ml sterile water for injection; use within 1 hour after reconstitution. For IM use only; do not administer IV or SUB-Q. Potassium 10 mEq, Route: Inactive Natasha as Chloride IVPB, Q1H, 2019 Medical Dosing Weight Center 50, kg, Total Dose = 40 meq, Start date: 10/30/18 11:00:00 CDT, Duration: 4 doses or times, Stop date: 10/30/18 14:00:00 CDT, Peripheral Line Vimpat Notes: Same as: No Longer Natasha as Vimpat Active 2019 [facility] Potassium Notes: (Same Inactive [facility] Chloride 1.33 as: Potassium 2019 Medi johnna MEQ/ML Oral Chloride) [place] Solution Vancomycin 2001 mg: Inactive [facility] infuse over 2.5 2019 Medical hours For Center adult patients only: Round to nearest 250 mg per Medical Staff approval MEDICATION WASTE Product Size: 1000 mg Product Wasted: ___ mg cefepime Notes: (Same Inactive [facility] As: Maxipime) 2019 Medical MEDICATION Center WASTE Product Size: 1000 mg Product Wasted: ___ mg Tylenol Notes: Max No Longer [facility] acetaminophen = Active 2019 Medical 4000mg/day (4 Center gm/day). (Same as: Tylenol) L-Arginine Notes: (Same No Longer Natasha as as: Arginine) Active 2019 [facility] Potassium Notes: (Same Inactive [facility] Chloride as: KCL) 2019 Medical Infuse over 2 Center hours. NS (Bolus) IV 500 mL, 500 [place] ml/hr, Infuse 2019 Medical Over: 1 hr, Center Route: IV, 500, Drug form: INJ, ONCE, Priority: STAT, Dosing Weight 50 kg, Start date: 10/30/18 0:46:00 CDT, Stop date: 10/30/18 0:46:00 CDT, 0 Zyprexa Notes: (Same No Longer [facility] as: ZyPREXA) Active 2019 Medical Center NS (Bolus) IV 500 mL, 500 [place] ml/hr, Infuse 2019 Medical Over: 1 hr, Center Route: IV, 500, Drug form: INJ, ONCE, Priority: STAT, Dosing Weight 50 kg, Start date: 10/29/18 3:57:00 CDT, Stop date: 10/29/18 3:57:00 CDT, 0 Potassium Notes: (Same Inactive [facility] Chloride as: KCL) 2019 Medical Infuse over 2 Center hours. D10W 980.75 mL + 980.75 mL, No Longer [facility] sodium chloride Rate: 200 Active 2019 Medica l 23.4% IV 77 mEq ml/hr, Infuse Ce nter over: 5 hr, Route: IV, Dosing Weight 50 kg, Total Volume: 1,000, Priority: Routine, Start date: 10/28/18 18:03:00 CDT, Duration: 30 day, Stop date: 11/27/18 18:02:00 CDT, 1.55, m2, 0 sterile water 2.1 mL, Route: No Longer 10/28/ [facility] [place] [facility] MISC, Drug Active 2019 Medical Form: INJ, Q4H, Center PRN Other -See Comment, Start date: 10/28/18 14:54:00 CDT, Stop date: 11/27/18 14:53:00 CDT, 0 Geodon Notes: Inactive [facility] Reconstitute 2019 Medical with 1.2 ml of Center sterile water. Final concentration = 20 mg/1ml. Maximum 40 mg/24 hours (Same As: Geodon). MEDICATION WASTE Product Size: 20 mg Product Wasted: _0__ mg Acyclovir Notes: (Same Inactive [facility] as: Zovirax) 2019 Medical For adult Center patients only: Round to nearest 50 mg per Medical Staff approval MEDICATION WASTE Product Size: 500 mg Product Wasted: _0__ mg atorvastatin 80 mg, Route: Inactive [place] PO, Drug form: 2019 Medical TAB, Bedtime, Center kg, Start date: 10/26/18 21:00:00 CDT, Duration: 30 day, Stop date: 11/24/18 21:00:00 CDT Levocarnitine 2,270 mg, Inactive Cecy s Route: PO, 2019 [facility] Q12H, Dosing Center Weight 45.455, kg, Start date: 10/26/18 21:00:00 CDT, Duration: 30 day, Stop date: 11/25/18 9:00:00 CDT Hiren Notes: No Longer [facility] Reconstitute Active [address] [place] [address] with 1.2 ml of Center sterile water. Final concentration = 20 mg/1ml. Maximum 40 mg/24 hours (Same As: Hiren). MEDICATION WASTE Product Size: 20 mg Product Wasted: 0mg Keppra Notes: Same as No Longer Cecy sanchez Keppra Mix Active 2018 [facility] with 100 mL NS, Center LR or D5W MEDICATION WASTE Product Size: 500 mg Product Wasted: ___ mg R-Gene 10 4 gm + Notes: (Same No Longer [facility] empty container 1 as: R-Gene 10) Active 2019 [facility] ea Center D10W 980.75 mL + 980.75 mL, No Longer [facility] sodium chloride Rate: 150 Active 2019 Medica l 23.4% IV 77 mEq ml/hr, Infuse Ce nter over: 6.7 hr, Route: IV, Dosing Weight 50 kg, Total Volume: 1,000, Priority: Routine, Start date: 10/26/18 12:44:00 CDT, Duration: 30 day, Stop date: 11/25/18 12:44:00 CDT, 1.55, m2, 0 arginine 10% 50 mL, Rate: Inactive [place] additive 5,000 mg 9.09 ml/hr, 2019 Me dical [20 mg/kg/hr] + Infuse over: [address] [facility] Drug Only 50 mL 5.5 hr, Route: IV, Dosing Weight 45.455 kg, Total Volume: 50 mL, Start date: 10/26/18 12:44:00 CDT, Duration: 30 day, Stop date: 11/25/18 12:43:00 CDT, 1.46, m2 ubiquinone Notes: (Same No Longer Natasha as As: Co-Enzyme Active 2018 Medical Q10) Center Saline Flush 0.9% Notes: (Same No Longer [place] as: BD Active 2019 Medical Posiflush) Center L-Arginine 5,000 mg, Inactive [place] Route: PO, TID, 2019 Medical kg, Start date: [place] 10/26/18 9:00:00 CDT, Duration: 30 day, Stop date: 11/24/18 17:00:00 CDT Phenergan 25 mg, Route: Inactive Natashaa s IVPB, ONCE, kg, 2019 Medical Start date: Center 10/26/18 8:58:00 CDT, Stop date: 10/26/18 8:58:00 CDT Dexmedetomidine 400 microgram, No Longer [facility] Rate: Titrate, Active 2018 Medical Start Dose: 0.2 Center microgram/kg/hr , Titration: 0.1 microgram/kg/hr every 30 min, Goal(s): RASS 0, Max Dose: 1.5 microgram/kg/hr , Route: IV, Dosing Weight 45.455 kg, Total Volume: 100, Start date: 10/26/18 7:54:00 CDT, Durati... Saline Flush 0.9% Notes: (Same No Longer [place] as: BD Active 2019 Medical Posiflush) Center Nystatin 100 Notes: (Same No Longer [place] UNT/MG Topical as:Mycostatin, Active 2019 [place] dical Powder Nilstat) For Center external use only. Ativan Notes: (Same No Longer [place] as: Ativan) Active 2019 Medical Center Haldol Notes: (Same Inactive [place] as: Haldol) 2019 Medical Center Versed 5 mg, Route: Inactive [facility] IVP, ONCE, kg, 2019 Medical Start date: [place] 10/26/18 5:45:00 CDT, Stop date: 10/26/18 5:45:00 CDT Ativan 2 mg, Route: Inactive 10/26[facility] IVP, Drug form: 2019 Medical INJ, Q6H, kg, Center PRN Anxiety, Start date: 10/26/18 5:42:00 CDT, Duration: 30 day, Stop date: 11/25/18 5:41:00 CDT Ativan 2 mg, Route: Inactive 10/26[facility] PO, Drug form: 2018 Medical TAB, TID, kg, Center PRN Anxiety, Start date: 10/26/18 5:41:00 CDT, Duration: 30 day, Stop date: 11/25/18 5:40:00 CDT Saline Flush 0.9% Notes: (Same No Longer 10/26[facility] as: BD Active 2019 Medical Posiflush) [place] Haldol 2.5 mg, Route: Inactive 10/26[facility] IM, ONCE, kg, 2018 Medical Start date: [place] 10/26/18 4:21:00 CDT, Stop date: 10/26/18 4:21:00 CDT Haldol 5 mg, Route: Inactive 10/26[facility] IM, ONCE, kg2018 Medical Priority: STAT, Center Start date: 10/26/18 4:20:00 CDT, Stop date: 10/26/18 4:20:00 CDT Versed 3 mg, Route: Inactive 10/26[facility] IM, ONCE, kg, 2018 Medical Start date: [place] 10/26/18 4:20:00 CDT, Stop date: 10/26/18 4:20:00 CDT Versed 3 mg, Route: Inactive 10/26[facility] IVP, ONCE, kg, 2018 Medical Priority: STAT, Center Start date: 10/26/18 4:18:00 CDT, Stop date: 10/26/18 4:18:00 CDT Ketamine Notes: (Same Inactive 10/26[facility] as: keTALAR) [address] [place] [address] Center Allergies, Adverse Reactions, Alerts Substance Category Reaction Severity Reaction Status Date Comments S ource type Reported amoxicillin Assertion Drug Active [facility] Depakote<sup Assertion Propensity Active Contra trevor [facility] >1</sup> to adverse cated in Med ical reactions patients Cente r to drug with MELAS Immunizations No Data Provided for This Section Results Order Name Results Value Reference Date Interpretation Comments Anni rce Range CHEM PANEL Lactic Acid 2.0 0.5 - 2.2 11/30 [facility] s l [facility] CARDIAC Total CK 82 12 - 191 11/30 [facility] ENZYMES [facility] CHEM PANEL Bili Total 0.3 0.2 - 1.3 11/30 [facility]2018 [facility] CHEM PANEL CO2 25 24 - 32 11/30 [facility]2018 [facility] CHEM PANEL Chloride Lvl 106 95 - 109 11/[address] [facility]2018 [facility] CHEM PANEL Calcium Lvl 8.2 8.5 - 10.5 11/30 [facility] CHEM PANEL Albumin Lvl 3.4 3.5 - 5.0 11/[address] [facility]2018 [facility] CHEM PANEL Total Protein 6.7 6.4 - 8.4 11/30 [place] [facility] CHEM PANEL AST 19 0 - 37 11/[address] CHEM PANEL ALT 19 0 - 65 11/[address] CHEM PANEL Alk Phos 72 39 - 136 11/[address] CHEM PANEL eGFR 139 11/30 [facility] Comment: The Medical eGFR is Center calculated using the CKD-EPI formula. In most young, healthy individuals the eGFR will be >90 mL/min/1.73m2 . The eGFR declines with age. An eGFR of 60-89 may be normal in some populations, particularly the elderly, for whom the CKD-EPI formula has not been extensively validated. Use of the eGFR is not recommended in the following populations:< br/>
Trevor viduals with unstable creatinine concentration s, including [...] multiplied by the estimated BMI. CHEM PANEL Glucose Lvl 87 70 - 99 11/30 [facility] /[address] [place] [address] CHEM PANEL Potassium Lvl 3.5 3.5 - 5.1 11/[address] CHEM PANEL BUN 10 7 - 22 11/[address] CHEM PANEL Creatinine 0.60 0.50 - 08 [facility] Lvl 1.40 /2018 [facility] CHEM PANEL Sodium Lvl 141 135 - 145 11/[address] CHEM PANEL AGAP 13.5 10.0 - 11/30 [place] 20.0 [facility] CHEM PANEL A/G Ratio 1.0 0.7 - 1.6 11/[address] CHEM PANEL Globulin 3.3 2.7 - 4.2 11/[address] CHEM PANEL B/C Ratio 17 6 - 25 11/[address] HEMATOLOGY Eosinophils # 0.3 0.0 - 0.5 11/[address] HEMATOLOGY Monocytes 6.9 2.0 - 12.0 11/[address] HEMATOLOGY Segs 52.8 45.0 - 11/30 [facility] 75.0 [facility] HEMATOLOGY Lymphocytes 36.3 20.0 - 08 [facility] 40.0 2019 [facility] HEMATOLOGY Lymphocytes # 2.9 1.0 - 5.5 11/[address] HEMATOLOGY Neutrophils # 4.2 1.5 - 8.1 11/[address] HEMATOLOGY Basophils 0.5 0.0 - 1.0 11/[address] HEMATOLOGY Eosinophils 3.5 0.0 - 4.0 11/[address] [facility]2018 [facility] HEMATOLOGY Monocytes # 0.5 0.0 - 0.8 11/[address] [facility]2018 [facility] HEMATOLOGY MCHC 35.6 32.0 - 08 [facility] 36.0 2019 [facility] HEMATOLOGY Hct 34.4 42.0 - 08/ [place] 54.0 2019 [facility] HEMATOLOGY Hgb 12.2 14.0 - 08 [facility] 18.0 2019 [facility] HEMATOLOGY MCV 87.1 80.0 - 11/30 [place] 94.0 /2019 [facility] HEMATOLOGY MCH 31.0 27.0 - 08 [facility] 31.0 2019 [facility] HEMATOLOGY Platelet 187 133 - 450 08 [facility] HEMATOLOGY MPV 8.7 7.4 - 10.4 08 [facility] HEMATOLOGY RDW 13.9 11.5 - 08 [facility] 14.5 [facility] HEMATOLOGY WBC 7.9 3.7 - 10.4 08 [facility]2018 [facility] HEMATOLOGY RBC 3.95 4.70 - 08 [place] 6.10 [facility] CHEM PANEL Lactic Acid 1.7 0.5 - 2.2 11/19 [facility] CHEM PANEL Lactic Acid 2.2 0.5 - 2.2 11/18 [facility] CHEM PANEL Lactic Acid 2.4 0.5 - 2.2 11/18 [facility] URINE AND UA Ketones Negative Negative 11/18 [facility] mg/dL mg/dL [facility] URINE AND UA Nitrite Negative Negative 11/18 [facility] (11/18/18 9:16 AM) [facility] URINE AND UA Leuk Est Negative Negative 11/18 [facility] (11/18/18 9:16 AM) [facility] URINE AND UA Glucose Negative Negative 11/18 [facility] mg/dL mg/dL [facility] URINE AND UA WBC 1 0 - 5 11/18 [facility] URINE AND UA Bili Negative Negative 11/18 [facility] *NA* /2018 [facility] (11/18/18 9:16 AM) [place] URINE AND UA Mucus Few /LPF None Seen 11/18 [facility] STOOL /LPF /2018 [facility] URINE AND UA Blood Negative Negative 11/18 [facility] (11/18/18 9:16 AM) [facility] URINE AND UA <1.0 0.1 - 1.0 11/18 [facility] Urobilinogen /2018 [facility] URINE AND UA Color Light Yellow Yellow 11/18 [facility] STOOL *NA* /2018 [facility] (11/18/18 9:16 AM) [place] URINE AND UA Turbidity Clear Clear 11/18 [facility] (11/18/18 9:16 AM) [facility] URINE AND UA Spec Grav 1.005 <=1.030 11/18 [facility] /2018 [facility] URINE AND UA pH 6.0 5.0 - 8.0 11/18 [facility] URINE AND UA Protein Negative Negative 11/18 [facility] STOOL mg/dL mg/dL /2018 [facility] URINE AND UA Sq Epi None Seen 11/18 [facility] CHEM PANEL Phosphorus 4.7 2.5 - 4.5 11/18 [facility]2018 [facility] CHEM PANEL Magnesium Lvl 1.9 1.8 - 2.4 11/18 [facility] ELECTROLYTE AGAP 13.5 10.0 - 11/18 [facility] S 20.0 [facility] ELECTROLYTE eGFR 133 11/18 Result [facility] Comment: The [facility] eGFR is Center calculated using the CKD-EPI formula. In most young, healthy individuals the eGFR will be >90 mL/min/1.73m2 . The eGFR declines with age. An eGFR of 60-89 may be normal in some populations, particularly the elderly, for whom the CKD-EPI formula has not been extensively validated. Use of the eGFR is not recommended in the following populations:< br/>
Trevor viduals with unstable creatinine concentration s, including [...] be multiplied by the estimated BMI. ELECTROLYTE Glucose Lvl 104 70 - 99 11/18 [facility] ELECTROLYTE BUN 12 7 - 22 11/18 [facility] ELECTROLYTE CO2 23 24 - 32 11/18 [facility]2018 [facility] ELECTROLYTE Potassium Lvl 3.5 3.5 - 5.1 11/18 [place] [facility] ELECTROLYTE Chloride Lvl 104 95 - 109 11/18 [facility] ELECTROLYTE Creatinine 0.67 0.50 - 11/18 [facility] S Lvl 1.40 [facility] ELECTROLYTE Sodium Lvl 137 135 - 145 11/18 [facility] ELECTROLYTE Calcium Lvl 9.1 8.5 - 10.5 11/18 [facility] HEMATOLOGY Eosinophils 3.5 0.0 - 4.0 11/18 [facility] HEMATOLOGY Monocytes 7.7 2.0 - 12.0 11/18 [facility]2018 [facility] HEMATOLOGY Lymphocytes 32.4 20.0 - 11/18 [place] 40.0 [facility] HEMATOLOGY Lymphocytes # 2.8 1.0 - 5.5 11/18 [facility] HEMATOLOGY Neutrophils # 4.8 1.5 - 8.1 11/18 [facility] HEMATOLOGY Basophils 0.7 0.0 - 1.0 11/18 [facility]2018 [facility] HEMATOLOGY Basophils # 0.1 0.0 - 0.2 11/18 [facility] HEMATOLOGY Eosinophils # 0.3 0.0 - 0.5 11/18 [facility] HEMATOLOGY Monocytes # 0.7 0.0 - 0.8 11/18 [facility] HEMATOLOGY Segs 55.7 45.0 - 11/18 75.0 [facility] HEMATOLOGY MPV 9.4 7.4 - 10.4 11/18 [facility]2018 [facility] HEMATOLOGY Platelet 228 133 - 450 11/18 [facility]2018 [facility] HEMATOLOGY RDW 13.3 11.5 - 11/18 [facility] 14.5 [facility] HEMATOLOGY Hgb 13.1 14.0 - 11/18 [facility] 18.0 [facility] HEMATOLOGY RBC 4.24 4.70 - 11/18 [place] 6.10 [facility] HEMATOLOGY WBC 8.7 3.7 - 10.4 11/18 [facility]2018 [facility] HEMATOLOGY MCHC 35.2 32.0 - 11/18 [place] 36.0 2019 [facility] HEMATOLOGY MCH 30.8 27.0 - 11/18 [place] 31.0 [facility] HEMATOLOGY MCV 87.6 80.0 - 11/18 [place] 94.0 2019 [facility] HEMATOLOGY Hct 37.1 42.0 - 11/18 [place] 54.0 2019 [facility] CHEM PANEL Amylase Lvl 72 25 - 115 11/[address] CHEM PANEL Lipase Lvl 112 73 - 393 11/[address] CHEM PANEL A/G Ratio 1.0 0.7 - 1.6 11/17 [facility]2018 [facility] CHEM PANEL Globulin 4.0 2.7 - 4.2 11/17 [facility] /[address] [place] [address] CHEM PANEL Bili Indirect 0.4 0.0 - 1.0 11/17 [facility]2018 [facility] CHEM PANEL Bili Direct 0.1 0.0 - 0.3 11/[address] [facility]2018 [facility] CHEM PANEL Bili Total 0.5 0.2 - 1.3 11/17 [facility]2018 [facility] CHEM PANEL AST 26 0 - 37 11/17 [facility]2018 [facility] CHEM PANEL Alk Phos 94 39 - 136 11/17 [facility]2018 [facility] CHEM PANEL ALT 28 0 - 65 11/17 [facility]2018 [facility] CHEM PANEL Albumin Lvl 3.9 3.5 - 5.0 11/[address] [facility]2018 [facility] CHEM PANEL Total Protein 7.9 6.4 - 8.4 11/17 [facility] CHEM PANEL Ammonia 11.0 <=45.0 11/17 [facility] uMol/L [facility] CARDIAC Troponin-I 0.09 0.00 - 11/17 [facility] ENZYMES 0.40 [facility] CARDIAC Total CK 85 12 - 191 11/[address] [facility] CHEM PANEL eGFR 127 11/17 [facility] Comment: The Medical eGFR is Center calculated using the CKD-EPI formula. In most young, healthy individuals the eGFR will be >90 mL/min/1.73m2 . The eGFR declines with age. An eGFR of 60-89 may be normal in some populations, particularly the elderly, for whom the CKD-EPI formula has not been extensively validated. Use of the eGFR is not recommended in the following populations:< br/>
Trevor viduals with unstable creatinine concentration s, including [...] multiplied by the estimated BMI. CHEM PANEL CO2 26 24 - 32 11/[address] CHEM PANEL Chloride Lvl 100 95 - 109 11/[address] [facility]2018 [facility] CHEM PANEL AGAP 16.5 10.0 - 11/17 [facility] [place] 20.0 [facility] CHEM PANEL Calcium Lvl 9.2 8.5 - 10.5 11/17 [facility] CHEM PANEL Sodium Lvl 139 135 - 145 11/17 [facility] CHEM PANEL Creatinine 0.75 0.50 - 11/17 [place] Lvl 1.40 /2018 [facility] CHEM PANEL Potassium Lvl 3.5 3.5 - 5.1 11/17 [place] [facility] CHEM PANEL BUN 15 7 - 22 11/17 [facility] CHEM PANEL Glucose Lvl 99 70 - 99 11/17 [facility] HEMATOLOGY INR 1.06 0.85 - 11/17 [place] 1.17 [facility] HEMATOLOGY PT 13.6 12.0 - 11/17 [place] 14.7 [facility] HEMATOLOGY WBC 10.1 3.7 - 10.4 11/17 [facility] HEMATOLOGY Hgb 12.9 14.0 - 11/17 [place] 18.0 [facility] HEMATOLOGY MCH 30.1 27.0 - 11/17 [place] 31.0 [facility] HEMATOLOGY MCHC 34.5 32.0 - 11/17 [place] 36.0 [facility] HEMATOLOGY Hct 37.3 42.0 - 11/17 [place] 54.0 2019 [facility] HEMATOLOGY MCV 87.3 80.0 - 11/17 [place] 94.0 2019 [facility] HEMATOLOGY RBC 4.28 4.70 - 11/17 [place] 6.10 [facility] HEMATOLOGY RDW 13.8 11.5 - 11/17 [place] 14.5 [facility] HEMATOLOGY Platelet 254 133 - 450 11/17 [facility] HEMATOLOGY MPV 9.1 7.4 - 10.4 11/17 [facility] HEMATOLOGY PTT 32.3 22.9 - 11/17 [place] 35.8 2019 [facility] HEMATOLOGY Segs 60.4 45.0 - 11/17 [place] 75.0 2019 [facility] HEMATOLOGY Basophils 0.8 0.0 - 1.0 11/17 [facility] HEMATOLOGY Eosinophils 2.7 0.0 - 4.0 11/17 [place] [facility] HEMATOLOGY Lymphocytes 29.3 20.0 - 11/17 [place] 40.0 2019 [facility] HEMATOLOGY Monocytes 6.8 2.0 - 12.0 11/17 [facility] HEMATOLOGY Lymphocytes # 3.0 1.0 - 5.5 11/17 [facility] HEMATOLOGY Monocytes # 0.7 0.0 - 0.8 11/17 [facility] HEMATOLOGY Neutrophils # 6.1 1.5 - 8.1 11/17 [facility] HEMATOLOGY Basophils # 0.1 0.0 - 0.2 11/17 [facility] HEMATOLOGY Eosinophils # 0.3 0.0 - 0.5 11/17 [facility] HEMATOLOGY Basophils 0.6 0.0 - 1.0 11/04 [facility] HEMATOLOGY Eosinophils 3.0 0.0 - 4.0 11/04 [facility] HEMATOLOGY Monocytes 6.5 2.0 - 12.0 11/04 [facility] HEMATOLOGY Lymphocytes 28.9 20.0 - 11/04 40.0 [facility] HEMATOLOGY Monocytes # 0.7 0.0 - 0.8 11/04 [facility] HEMATOLOGY Lymphocytes # 3.0 1.0 - 5.5 11/04 [facility] HEMATOLOGY Neutrophils # 6.4 1.5 - 8.1 11/04 [facility] HEMATOLOGY Basophils # 0.1 0.0 - 0.2 11/04 [facility] HEMATOLOGY Eosinophils # 0.3 0.0 - 0.5 11/04 [facility] HEMATOLOGY Segs 61.0 45.0 - 11/04 75.0 [facility] HEMATOLOGY RBC 4.13 4.70 - 08 6.10 [facility] HEMATOLOGY WBC 10.4 3.7 - 10.4 11/04 [facility] HEMATOLOGY MCHC 35.0 32.0 - 0708 36.0 [facility] HEMATOLOGY Platelet 218 133 - 450 11/04 [facility]2018 [facility] HEMATOLOGY RDW 13.3 11.5 - 0708 14.5 2019 [facility] HEMATOLOGY Hgb 12.5 14.0 - 0708 18.0 2019 [facility] HEMATOLOGY MPV 8.5 7.4 - 10.4 07 [facility] HEMATOLOGY MCV 86.4 80.0 - 11/04 [facility] 94.0 [facility] HEMATOLOGY Hct 35.6 42.0 - 11/04 54.0 [facility] HEMATOLOGY MCH 30.2 27.0 - 11/04 31.0 [facility] CHEM PANEL Phosphorus 5.4 2.5 - 4.5 11/04 [facility] CHEM PANEL Magnesium Lvl 1.8 1.8 - 2.4 11/04 [facility] CHEM PANEL eGFR 134 11/04 Result Comment: The Medical eGFR is Center [...] not recommended in the following populations:< br/>
Trevor viduals with unstable creatinine concentration s, including [...] Calcium Lvl 8.1 8.5 - 10.5 11/04 [facility] CHEM PANEL Sodium Lvl 137 135 - 145 11/04 [facility] CHEM PANEL Potassium Lvl 4.8 3.5 - 5.1 11/04 Result Comment: [facility] Moderately Hemolyzed. CHEM PANEL Chloride Lvl 104 95 - 109 11/04 [facility] CHEM PANEL CO2 25 24 - 32 11/04 [facility] CHEM PANEL BUN 15 7 - 22 11/04 [facility] CHEM PANEL Creatinine 0.65 0.50 - 11/04 [facility] Lvl 1.40 [facility] CHEM PANEL Glucose Lvl 224 70 - 99 11/04 [facility] CHEM PANEL AGAP 12.8 10.0 - 11/04 [facility] 20.0 [facility] PARATHYROID Ca Norm WB 1.05 1.05 - 11/04 [facility] PROFILE . [facility] PARATHYROID Ca Ion WB 1.05 1.05 - 11/04 [facility] PROFILE 05.24 [facility] CHEM PANEL Magnesium Lvl 1.8 1.8 - 2.4 11/03 [facility] CHEM PANEL Phosphorus 4.2 2.5 - 4.5 11/03 [facility] ELECTROLYTE AGAP 13.1 10.0 - 11/03 [facility] S 20. [facility] ELECTROLYTE eGFR 128 11/03 [facility] Comment: The Medical eGFR is Center calculated using the CKD-EPI formula. In most young, healthy individuals the eGFR will be >90 mL/min/1.73m2 . The eGFR declines with age. An eGFR of 60-89 may be normal in some populations, particularly the elderly, for whom the CKD-EPI formula has not been extensively validated. Use of the eGFR is not recommended in the following populations:< br/>
Trevor viduals with unstable creatinine concentration s, including [...] Calcium Lvl 8.0 8.5 - 10.5 11/03 [facility] ELECTROLYTE Chloride Lvl 111 95 - 109 11/03 [facility] ELECTROLYTE CO2 21 24 - 32 11/03 [facility] ELECTROLYTE BUN 10 7 - 22 11/03 [facility] ELECTROLYTE Creatinine 0.72 0.50 - 11/03 [facility] S Lvl 1.40 [facility] ELECTROLYTE Glucose Lvl 94 70 - 99 11/03 [facility]2018 [facility] ELECTROLYTE Sodium Lvl 142 135 - 145 11/03 [facility] ELECTROLYTE Potassium Lvl 3.1 3.5 - 5.1 11/03 [place] [facility] HEMATOLOGY Eosinophils # 0.2 0.0 - 0.5 07 [facility] HEMATOLOGY Basophils # 0.1 0.0 - 0.2 07 [facility] HEMATOLOGY Lymphocytes 37.1 20.0 - 11/03 [place] 40.0 /2019 [facility] HEMATOLOGY Monocytes 8.0 2.0 - 12.0 11/03 [facility] HEMATOLOGY Segs 51.3 45.0 - 11/03 [place] 75.0 /2019 [facility] HEMATOLOGY Monocytes # 0.7 0.0 - 0.8 07 [facility] HEMATOLOGY Lymphocytes # 3.1 1.0 - 5.5 11/03 [facility] HEMATOLOGY Eosinophils 2.7 0.0 - 4.0 11/03 [facility] HEMATOLOGY Basophils 0.9 0.0 - 1.0 11/03 [facility] HEMATOLOGY Neutrophils # 4.3 1.5 - 8.1 11/03 [facility] HEMATOLOGY WBC 8.5 3.7 - 10.4 11/03 [facility] HEMATOLOGY RBC 3.70 4.70 - 11/03 [place] 6.10 [facility] HEMATOLOGY Hgb 11.3 14.0 - 11/03 [facility] 18.0 2019 [facility] HEMATOLOGY Hct 31.5 42.0 - 11/03 [facility] 54.0 2019 [facility] HEMATOLOGY MPV 9.4 7.4 - 10.4 11/03 [facility] HEMATOLOGY RDW 12.9 11.5 - 11/03 [place] 14.5 2019 [facility] HEMATOLOGY Platelet 207 133 - 450 11/03 [facility] HEMATOLOGY MCHC 35.9 32.0 - 11/03 [place] 36.0 /2019 [facility] HEMATOLOGY MCH 30.5 27.0 - 0707 [place] 31.0 2019 [facility] HEMATOLOGY MCV 85.1 80.0 - 11/03 [facility] 94.0 2019 [facility] PARATHYROID Ca Norm WB 1.08 1.05 - 11/03 [place] PROFILE . [facility] PARATHYROID Ca Ion WB 1.09 1.05 - 11/03 [place] PROFILE 05.24 [facility] CHEM PANEL Phosphorus 4.1 2.5 - 4.5 11/02 [facility] CHEM PANEL Magnesium Lvl 1.5 1.8 - 2.4 11/02 [facility] CHEM PANEL eGFR 137 11/02 Result Comment: The Medical eGFR is Center [...] not recommended in the following populations:< br/>
Trevor viduals with unstable creatinine concentration s, including [...] Calcium Lvl 8.9 8.5 - 10.5 11/02 [facility] CHEM PANEL CO2 20 24 - 32 11/02 [facility] CHEM PANEL AGAP 14.0 10.0 - 11/02 [facility] 20.0 [facility] CHEM PANEL Creatinine 0.62 0.50 - 11/02 [facility] Lvl 1.40 [facility] CHEM PANEL BUN 7 7 - 22 11/02 [facility] CHEM PANEL Potassium Lvl 3.0 3.5 - 5.1 11/02 Result Comment: [facility] Result(s) called to Gail Ellsworth at 11/02/2018 04:46 by stp. Read back OK. CHEM PANEL Sodium Lvl 143 135 - 145 11/02 [facility] CHEM PANEL Chloride Lvl 112 95 - 109 11/02 [facility] CHEM PANEL Glucose Lvl 98 70 - 99 11/02 [facility]2018 [facility] CHEM PANEL Lactic Acid 3.6 0.5 - 2.2 11/02 [facility] HEMATOLOGY Basophils # 0.1 0.0 - 0.2 07/ [facility] HEMATOLOGY Basophils 0.7 0.0 - 1.0 07 [facility] HEMATOLOGY Eosinophils 3.5 0.0 - 4.0 07 [facility] HEMATOLOGY Neutrophils # 4.4 1.5 - 8.1 07 [facility] HEMATOLOGY Monocytes 8.5 2.0 - 12.0 07 [facility] HEMATOLOGY Lymphocytes 35.2 20.0 - 07 [place] 40.0 2019 [facility] HEMATOLOGY Segs 52.1 45.0 - 07/ [facility] 75.0 2019 [facility] HEMATOLOGY Eosinophils # 0.3 0.0 - 0.5 07 [facility] HEMATOLOGY Monocytes # 0.7 0.0 - 0.8 07 [facility] HEMATOLOGY Lymphocytes # 3.0 1.0 - 5.5 11/02 [facility] HEMATOLOGY MPV 8.7 7.4 - 10.4 11/02 [facility] HEMATOLOGY RDW 13.0 11.5 - 11/02 [facility] 14.5 [facility] HEMATOLOGY Platelet 194 133 - 450 07 [facility] HEMATOLOGY MCV 85.8 80.0 - 11/02 [facility] 94.0 2019 [facility] HEMATOLOGY MCH 31.1 27.0 - 11/02 31.0 2019 [facility] HEMATOLOGY MCHC 36.2 32.0 - 11/02 36.0 [facility] HEMATOLOGY Hgb 12.2 14.0 - 11/02 18.0 2019 [facility] HEMATOLOGY Hct 33.6 42.0 - 11/02 54.0 2019 [facility] HEMATOLOGY WBC 8.5 3.7 - 10.4 11/02 [facility] HEMATOLOGY RBC 3.92 4.70 - 07 [facility] 6.10 [facility] PARATHYROID Ca Ion WB 1.15 1.05 - 11/02 [facility] PROFILE 05.24 [facility] PARATHYROID Ca Norm WB 1.11 1.05 - 11/02 [facility] PROFILE 05.24 [facility] CHEM PANEL Lactic Acid 4.7 0.5 - 2.2 07 Result [facility] Comment: Medical Critical Center Result(s) called to Gail Ellsworth at 11/01/2018 20:27 by AC. Read back OK. CHEM PANEL Lactic Acid 4.2 0.5 - 2.2 11/01 Result [facility] Comment: Medical Critical Center Result(s) called to [place] at 11/01/2018 12:05 by wx. Read back OK. TOXICOLOGY Vanco Tr 1.3 10/31 [facility] TOXICOLOGY Vanco Tr TND 0730 10/31 [facility] CHEM PANEL Pyruvic Acid 0.3 0.3 - 0.7 10/30 Result [facility] Comment: Medical
This Center test was developed and its performance characteristi cs
determ ined by [facility]. It has not been cleared or
approv ed by the Food and Drug Administratio n.
Perfor med At: [facility] [place]
[address], [place] [id number]< br/>Krishna Smiley MD Ph:[phone] URINE AND UA Sq Epi None Seen 10/30 [facility] [address] [place] [address] URINE AND UA <1.0 0.1 - 1.0 10/30 [facility] Urobilinogen /2018 [facility] URINE AND UA Nitrite Negative Negative 10/30 [facility] (10/30/18 10:08 AM) [facility] URINE AND UA Mucus Few /LPF None Seen 10/30 [facility] STOOL /LPF /2018 [facility] URINE AND UA Bacteria Occasional None Seen 10/30 [place] STOOL /HPF /HPF /2018 [facility] URINE AND UA Blood Moderate Negative 10/30 [facility] *ABN* /2018 [facility] (10/30/18 10:08 AM) [place] URINE AND UA Leuk Est Small Negative 10/30 [facility] *ABN* [facility] (10/30/18 10:08 AM) [place] URINE AND UA WBC 1 0 - 5 10/30 [facility] [address] [place] [address] URINE AND UA RBC 1 0 - 2 10/30 [facility] [address] [place] [address] URINE AND UA Spec Grav 1.005 <=1.030 10/30 [facility] [address] [place] [address] URINE AND UA pH 6.0 5.0 - 8.0 10/30 [facility] STOOL /2018 [facility] URINE AND UA Protein Negative Negative 10/30 [facility] STOOL mg/dL mg/dL /2018 [facility] URINE AND UA Bili Negative Negative 10/30 [facility] STOOL *NA* /2018 [facility] (10/30/18 10:08 AM) [place] URINE AND UA Turbidity Clear Clear 10/30 [facility] (10/30/18 10:08 AM) Med[facility] l Center URINE AND UA Ketones Negative Negative 10/30 [facility] STOOL mg/dL mg/dL /2018 [facility] URINE AND UA Glucose Negative Negative 10/30 [facility] STOOL mg/dL mg/dL [facility] URINE AND UA Color Light Yellow Yellow 10/30 [facility] STOOL *NA* /2018 [facility] (10/30/18 10:08 AM) [place] CHEM PANEL Lipase Lvl 94 73 - 393 10/28 [facility] CHEM PANEL Amylase Lvl 59 25 - 115 10/28 [facility] IMMUNOLOGY HIV Ag/Ab 4th Negative Negative 10/28 [place] *NA* /2018 [facility] (10/28/18 4:04 PM) [place] URINE AND UA Nitrite Negative Negative 10/28 [facility] (10/28/18 2:06 PM) /2018 [facility] URINE AND UA Leuk Est Trace Negative 10/28 [facility] STOOL *ABN* /2018 [facility] (10/28/18 2:06 PM) [place] URINE AND UA Sq Epi None Seen Few 10/28 [facility] (10/28/18 2:06 PM) /2018 [facility] URINE AND UA Bili Negative Negative 10/28 [facility] STOOL *NA* /2018 [facility] (10/28/18 2:06 PM) [place] URINE AND UA Blood Negative Negative 10/28 [facility] (10/28/18 2:06 PM) /2018 [facility] URINE AND UA 0.2 0.1 - 1.0 10/28 [facility] Urobilinogen /2018 [facility] URINE AND UA Protein Negative Negative 10/28 [facility] (10/28/18 2:06 PM) /2018 [facility] URINE AND UA Glucose Negative Negative 10/28 [facility] (10/28/18 2:06 PM) /2018 [facility] URINE AND UA Ketones Negative Negative 10/28 [facility] STOOL *NA* /2018 [facility] (10/28/18 2:06 PM) Center URINE AND UA Turbidity Clear Clear 10/28 [facility] (10/28/18 2:06 PM) [facility] URINE AND UA pH 5.5 5.0 - 8.0 10/28 [facility] /2018 [facility] URINE AND UA Spec Grav 1.010 <=1.030 10/28 [facility] /2019 [facility] URINE AND UA Color Yellow Yellow 10/28 [facility] STOOL *NA* /2018 [facility] (10/28/18 2:06 PM) [place] URINE AND UA RBC <1 0 - 2 10/28 [facility] /2019 [facility] URINE AND UA WBC 1 0 - 5 10/28 [facility] /[address] [place] [address] URINE AND UA Bacteria Occasional None Seen 10/28 [place] ST[place]OL /HPF /HPF /2018 [facility] URINE AND UA Mucus Few /LPF None Seen 10/28 [facility] STOOL /LPF /2018 [facility] DRUG SCREEN UDS Note See Note 10/26 [facility] (10/26/18 4:34 PM) Medica l Center DRUG SCREEN U Negative Negative 10/26 [facility] Phencyclidine *NA* Medical Scr (10/26/18 4:34 PM) Center DRUG SCREEN U Opiate Scr Negative Negative 10/26 [place] *NA* Medical (10/26/18 4:34 PM) Center DRUG SCREEN U [place] Negative Negative [place]/26 [place] *NA* Medical (10/26/18 4:34 PM) Center DRUG SCREEN U Amph Scr Negative Negative 10/[place] *NA* Medical (10/26/18 4:34 PM) Center DRUG SCREEN U Benzodiaz Positive Negative 10/26 [place] *ABN* Medical (10/26/18 4:34 PM) Center DRUG SCREEN U Cannab Scr Negative Negative 10/26 [place] *NA* Medical (10/26/18 4:34 PM) Center DRUG SCREEN U Cocaine Scr Negative Negative 10/26 [place] *NA* [facility] (10/26/18 4:34 PM) Center URINE AND UA Glucose 50mg/dl 10/26 [facility] STOOL /2018 [facility] URINE AND UA Turbidity Clear Clear 10/26 [facility] (10/26/18 4:34 PM) Medica l [place] URINE AND UA Spec Grav 1.026 <=1.030 10/26 [facility] STOOL [facility] URINE AND UA Color Yellow Yellow 10/26 [facility] STOOL *NA* /2018 [facility] (10/26/18 4:34 PM) [place] URINE AND UA Bili Negative Negative 10/26 [facility] *NA* /2018 [facility] (10/26/18 4:34 PM) [place] URINE AND UA Protein 100 mg/dL Negative 10/26 [facility] mg/dL /2018 [facility] URINE AND UA Ketones Negative Negative 10/26 [facility] mg/dL mg/dL [facility] URINE AND UA pH 5.0 5.0 - 8.0 10/26 [facility] /2018 [facility] URINE AND UA <1.0 0.1 - 1.0 10/26 [facility] Urobilinogen /2018 [facility] URINE AND UA Blood Negative Negative 10/26 [facility] (10/26/18 4:34 PM) [facility] URINE AND UA WBC <1 0 - 5 10/26 [facility] [address] [place] [address] URINE AND UA Nitrite Negative Negative 10/26 [facility] (10/26/18 4:34 PM) [facility] URINE AND UA Mucus Few /LPF None Seen 10/26 [facility] /LPF /2018 [facility] URINE AND UA Leuk Est Negative Negative 10/26 [facility] (10/26/18 4:34 PM) [facility] URINE AND UA Sq Epi None Seen 10/26 [facility] /[address] [place] [address] URINE AND UA RBC 1 0 - 2 10/26 [facility] [address] [place] [address] BACTERIAL - MRSA by PCR Negative 10/26 [facility] (10/26/18 11:26 AM) [facility] CHEM PANEL Ammonia 39.0 <=45.0 10/26 [facility] uMol/L [facility] CHEM PANEL A/G Ratio 0.9 0.7 - 1.6 10/[address] CHEM PANEL Globulin 3.7 2.7 - 4.2 10/[address] CHEM PANEL Alk Phos 91 39 - 136 10/[address] CHEM PANEL Bili Total 0.3 0.2 - 1.3 10/[address] CHEM PANEL AST 25 0 - 37 10/[address] CHEM PANEL Bili Direct 0.1 0.0 - 0.3 10/[address] [facility]2018 [facility] CHEM PANEL Bili Indirect 0.2 0.0 - 1.0 10/[address] CHEM PANEL ALT 28 0 - 65 10/[address] CHEM PANEL Albumin Lvl 3.5 3.5 - 5.0 10/[address] CHEM PANEL Total Protein 7.2 6.4 - 8.4 10/[address] CHEM PANEL Amylase Lvl 58 25 - 115 10/[address] CHEM PANEL Lipase Lvl 62 73 - 393 10/[address] CHEM PANEL A/G Ratio 1.0 0.7 - 1.6 10/[address] CHEM PANEL B/C Ratio 27 6 - 25 10/[address] CHEM PANEL Globulin 3.9 2.7 - 4.2 10/[address] CHEM PANEL ALT 30 0 - 65 10/[address] CHEM PANEL Bili Total 0.3 0.2 - 1.3 10/[address] CHEM PANEL Alk Phos 97 39 - 136 10/[address] CHEM PANEL Albumin Lvl 4.0 3.5 - 5.0 10/[address] CHEM PANEL AST 23 0 - 37 10/[address] CHEM PANEL Total Protein 7.9 6.4 - 8.4 10/26 [facility] [address] [place] [address] CHEM PANEL Bili Direct <0.1 0.0 - 0.3 10/[address] LIPIDS VLDL 24 10/[address] LIPIDS LDL 78 <=99 mg/dL 10/26 [facility] (Calculated) [facility] LIPIDS Trig 118 <=149 10/26 [facility] mg/dL [facility] LIPIDS HDL 34 >=61 mg/dL 10/[address] LIPIDS Chol 136 <=199 10/26 [facility] mg/dL [facility] LIPIDS CHD Risk 4.00 4.00 - 10/26 [facility] 7. [facility] SPECIAL Hgb A1C 5.4 <=5.6 % 10/26 [facility] [address] [place] [address] Pathology Reports No Data Provided for This Section Diagnostic Reports Report Value Date Source Chest 1view DX EXAM: XR CHEST 1 VIEW 11/30/2018 [facility] edical DATE: 11/30/2018 3:43 CDT Center INDICATION: - To look for any signs of aspirati on COMPARISON: 11/29/2018 TECHNIQUE: AP chest IMPRESSION: 1. Heart size is normal. 2. No organized consolidation, pleural effusion or pneumothorax. 3. No acute skeletal abnormality. Brain wo contrast MRI EXAM: MRI BRAIN WITH AND WITHOUT CONTRAST 11/17/2018 [facility] DATE: 11/17/2018 0:52 CDT Center INDICATION: - MELAS, new R sided weakness/numbn ess COMPARISON: CTA brain/neck stroke perfusion 10/29. TECHNIQUE: Multiplanar, mult isequence MRI of the brain with and without intravenous contrast. IV contrast: None. FINDINGS: Predominantly, cortically ba sed diffusion restriction in the biparietal and temporal regions with corresponding increased T2 signal in the adjacent subcortical regions. No hydrocephalus or midline shift. There is no acute or chronic hemorrhagic change. The intracranial arterial and venous structures demonstrate normal flow voids. Mucosal polypoid thickening of the bilateral max illary sinuses. IMPRESSION: Biparietal/bitemporal areas of predominantly, cortically-based diffusion restriction likely related to sequelae of MELAS Chest 1view DX EXAM: XR CHEST 1 VIEW 11/16/2018 [facility] edical DATE: 11/16/2018 22:19 CDT Center INDICATION: - code stroke, hand weakness, previ ous strokes COMPARISON: None available TECHNIQUE: AP chest FINDINGS: Lines and tubes: None. Lungs and pleura: No pulmonary or pleural based abnormality is identified. Heart and mediastinum: The h eart size is normal for technique. The mediastinal contours are normal. Bones: No acute bony abnormality is identified. IMPRESSION: 1. No acute cardiopulmonary abnormality. Brain Stroke wo EXAM: CT HEAD WITHOUT CONTRAST 11/16/2018 [facility] contrast CT Center DATE: 11/16/2018 10:19 PM CDT INDICATION: 28 years old Mal e patient with history of code stroke, hand weakness, previous strokes. TECHNIQUE: Multiple axial im ages were obtained through the head from vertex to the skull base. Axial bone algorithm reconstruction images are provided. COMPARISON: None. FINDINGS: Cytotoxic edematous changes are noted within bilateral MCA distributions and questionable involvement within bilateral superior dorsal cerebellar hemispheres. No definite evidence of sign ificant mass effect, midline shift is seen. There is no intracranial hemorrhage. Ventricles are normal in siz e and configuration. No pathological extra-axial fluid collection is seen. Basal cisterns are well pres erved. There is no evidence of downward herniation at the level of foramen magnum. Calvarium is intact. Visualized paranasal sinuses are clear. Mastoid air cells are well aerated. Visualized orbits appear grossly unremarkable. IMPRESSION: 1. No acute intracranial hemorrhage. 2. Cytotoxic edematous correa ges are noted within bilateral MCA distributions and questionable involvement within bilateral superior dorsal cerebellar hemispheres. These findings are concerning for acute bilateral ischemic infarcts possibly related to multifocal embolic phenomenon. This finding may also be related to history of MELAS. This should be further evaluated with MRI of the brain without contrast. These findings are in agreem ent with previous preliminary report made by audiovisual production specialist international affairs vice president. Brain/Neck Stroke EXAM: CTA BRAIN 11/16/2018 [facility] perfusion CTA EXAM: CTA NECK Center EXAM: CT PERFUSION BRAIN DATE: 11/16/2018 10:19 PM CDT INDICATION: 28 years old Mal e patient with history of code stroke, hand weakness, previous strokes. COMPARISON: CT Scan of the head performed at the same time. TECHNIQUE: - Dynamic CT perfusion image s on a limited area of the brain parenchyma are performed during bolus injection of iodinated contrast material. Color maps of relative cerebral blood flow, relative cerebral blood volume, time to peak, and mean transit time are created on an independent workstation and are submitted along with the source image data. -Rapid acquisition spiral CT images of the brain and neck were obtained between the aortic arch and the cranial vertex during intravenous infusion of iodinated contrast for the purposes of CT angiograph y. 3-D CT angiographic image s are created using MIP technique at the acquisition workstation. The source images are also presented for interpretation. FINDINGS: CT ANGIOGRAM OF THE NECK: AORTIC ARCH: Left sided aort ic arch. Great vessels originate from the aortic arch in the standard configuration. Origins of the great vessels appear patent without hemodynamically significant stenosis. CERVICAL CAROTID ARTERIES: RIGHT: Common carotid artery has a normal course, normal caliber without hemodynamically significant stenosis. Common carotid artery bifurcates at level of C4. There are no significant ath erosclerotic plaques or hemodynamically significant stenosis at the carotid bifurcation/carotid bulb. Remaining cervical internal carotid artery has a normal course and normal caliber without hemodynamically significant stenosis. LEFT: Common carotid artery has a normal course, normal caliber without hemodynamically significant stenosis. Common carotid artery bifurcates at level of C4. There are no significant ath erosclerotic plaques without hemodynamically significant stenosis at the carotid bifurcation/carotid bulb. Remaining cervical internal carotid artery has a normal course and normal caliber without hemodynamically significant stenosis. CERVICAL VERTEBRAL ARTERIES: Dominant right vert ebral artery. RIGHT: Originates from right subclavian artery. No hemodynamically significant stenosis at origin. It enters the vertebral foramina at level of C6. It has normal caliber without any hemodynamically significant stenosis. LEFT: Originates from left s ubclavian artery. No hemodynamically significant stenosis at origin. It enters the vertebral foramina at level of C6. It has normal caliber without any hemodynamically significant stenosis. CT ANGIOGRAM OF THE HEAD: ANTERIOR CIRCULATION: Right Internal Carotid Arter y: Petrous, Laceral, Cavernous, Clinoid, Ophthalmic and Communicating segment appear normal in caliber and contour. No hemodynamically significant stenosis is present. Left Internal Carotid Artery : Petrous, Laceral, Cavernous, Clinoid, Ophthalmic and Communicating segment appear normal in caliber and contour. No hemodynamically significant stenosis is present. Anterior Cerebral Arteries: Visualized anterior cerebral arteries appear widely patent without hemodynamically significant stenosis. Middle Cerebral Arteries: Vi sualized middle cerebral arteries appear widely patent without hemodynamically significant stenosis. POSTERIOR CIRCULATION/VERTEBROBASILAR SYSTEM: Intracranial Vertebral Arter ies: Intracranial vertebral arteries (V4 segments) appear widely patent without hemodynamically significant stenosis. Basilar Artery: Visualized b asilar artery appears widely patent without hemodynamically significant stenosis. Posterior Cerebral Arteries: -type [employer] on the left. Visualized posterior cerebral arteries appear widely patent without hemodynamically significant stenosis. VENOUS SYSTEM: Visualized dural venous sinuses a re patent. CT PERFUSION: There is no regional abnorma lity in cerebral blood flow, cerebral blood volume, or transit time in the imaged areas of the brain to suggest active oligemia or infarction. EXTRAVASCULAR FINDINGS: Visualized lung apices are c lear. Thyroid gland appears unremarkable. No definite mass lesion is seen within neck. Airway is widely patent. Vertebral alignment of the cervical spine is erika tomic.. Please refer to detailed rep ort of the CT scan of the head for non-vascular intracranial findings. IMPRESSION: 1. No definite evidence of f low-limiting stenosis, major branch occlusion, vascular injury or aneurysm is identified. 2. No definite match or [facility] abnormality to suggest acute ischemia/infarct. All quantitative and qualita tive assessments of carotid bifurcation and proximal internal carotid artery stenosis in the neck are are made referencing the distal internal carotid artery as per standard NASCET criteria. Chest 1view DX EXAM: XR CHEST 1 VIEW 10/30/2018 [facility] edical DATE: 10/30/2018 7:03 CDT Center INDICATION: - Fever, with cough. TECHNIQUE: Chest 1 view FINDINGS: A single AP semier ect view of the chest is submitted without a prior study for comparison. Heart is not enlarged. Media stinal contours are unremarkable. The lungs are clear. Pulmonary vascularity is normal. No pleural effusions. The bones are unremarkable. IMPRESSION: The lungs are clear bilaterally and well-expanded. Brain wo contrast CT EXAM: CT BRAIN WITHOUT CONTRAST 10/26/2018 [facility] DATE: 10/26/2018 2:22 CDT Center INDICATION: - ams recent bi l temp stroke, recently diagnosed with MELAS at [facility]. COMPARISON: Outside MRI brai n 10/22/2018, 10/20/2018. Outside CT brain without contrast 10/18/2018. Outside CTA had and neck 10/20/2018. TECHNIQUE: Routine axial farrukh ges of the brain were obtained without contrast.Coronal and sagittal reformatted images. IV contrast: None. FINDINGS: Evolving areas of hypodensit y and loss of longo-white differentiation consistent with subacute infarction involving the bilateral temporal lobes and right greater than left parietal lobes. Subtle areas o f increased density in the i nvolved cortices in the right greater than left temporal lobes may represent areas of residual cortex and/ or superimposed evolving petechial hemorrhage. Associated effacemen t of contiguous sulci. No mi dline shift. The basal cisterns remain patent. The ventricles are normal in size. Chronic lacunar infarcts in the bilateral thalami. Smaller rounded hypodensity projecting ov er the right posterior cereb ellar hemisphere may be in part due to artifact when compared to prior exams. IMPRESSION: 1. Subacute infarction invo lving bilateral temporal lobes and to a lesser extent extending into the right greater than left contiguous parietal lobes. Areas of curvilinear increased density in the righ t greater than left temporal lobes may represent areas of residual cortex versus evolving petechial hemorrhage. 2. Chronic infarcts in the bilateral thalami. Above findings were communic ated via telephone with Dr. Coronel (ED) at 0255 hours on 10/26/[address] Vernon. [place] SECTION: Neuro Consultation Notes No Data Provided for This Section Discharge Summaries No Data Provided for This Section History and Physicals No Data Provided for This Section Vital Signs Vital Sign Value Date Comments Source Respitory Rate 18 12/01/2018 [facility] Systolic (mm Hg) 117 12/01/2018 [facility] Diastolic (mm Hg) 85 12/01/2018 [facility] Temperature Oral (F) 97.7 F 12/01/2018 [facility] Heart Rate 98 12/01/2018 [facility] Heart Rate 62 12/01/2018 [facility] Temperature Oral (F) 98.2 F 12/01/2018 [facility] Systolic (mm Hg) 105 12/01/2018 [facility] Diastolic (mm Hg) 67 12/01/2018 [facility] Respitory Rate 18 12/01/2018 [facility] Heart Rate 62 12/01/2018 [facility] Respitory Rate 18 12/01/2018 [facility] Systolic (mm Hg) 111 12/01/2018 [facility] Diastolic (mm Hg) 62 12/01/2018 [facility] Temperature Oral (F) 97.2 F 12/01/2018 [facility] Height 165.1 cm 11/30/2018 [facility] Weight 38.56 11/30/2018 [facility] BMI Calculated 14.15 11/30/2018 [facility] Temperature Oral (F) 97.9 F 11/23/2018 [facility] Heart Rate 99 11/23/2018 [facility] Respitory Rate 18 11/23/2018 [facility] Systolic (mm Hg) 115 11/23/2018 [facility] Diastolic (mm Hg) 74 11/23/2018 [facility] Rate 112 11/22/2018 [facility] Respitory Rate 18 11/22/2018 [facility] Systolic (mm Hg) 119 11/22/2018 [facility] Diastolic (mm Hg) 76 11/22/2018 [facility] Temperature Oral (F) 98.1 F 11/22/2018 [facility] Temperature Oral (F) 97.8 F 11/22/2018 [facility] Systolic (mm Hg) 90 11/22/2018 [facility] Diastolic (mm Hg) 65 11/22/2018 [facility] Heart Rate 95 11/22/2018 [facility] Respitory Rate 18 11/22/2018 [facility] Weight 42.727 11/20/2018 [facility] BMI Calculated 15.68 11/20/2018 [facility] Height 165.1 cm 11/20/2018 [facility] Height 165.1 cm 11/17/2018 [facility] Weight 50 11/17/2018 [facility] BMI Calculated 18.34 11/17/2018 [facility] Weight 61.364 11/17/2018 [facility] BMI Calculated 22.51 11/17/2018 [facility] Height 165.1 cm 11/17/2018 [facility] Systolic (mm Hg) 113 11/05/2018 [facility] Diastolic (mm Hg) 76 11/05/2018 [facility] Respitory Rate 18 11/05/2018 [facility] Heart Rate 81 11/05/2018 [facility] Temperature Oral (F) 98.6 F 11/05/2018 [facility] Heart Rate 101 11/05/2018 [facility] Temperature Oral (F) 98.9 F 11/05/2018 [facility] Heart Rate 111 11/05/2018 [facility] Respitory Rate 18 11/05/2018 [facility] Systolic (mm Hg) 116 11/05/2018 [facility] Diastolic (mm Hg) 73 11/05/2018 [facility] Temperature Oral (F) 98.8 F 11/05/2018 [facility] Respitory Rate 18 11/05/2018 [facility] Systolic (mm Hg) 111 11/05/2018 [facility] Diastolic (mm Hg) 66 11/05/2018 [facility] Height 172.72 cm 10/30/2018 [facility] Weight 50 10/30/2018 [facility] Weight 50 10/27/2018 [facility] BMI Calculated 16.76 10/27/2018 [facility] Height 172.72 cm 10/27/2018 [facility] Weight 45.455 10/26/2018 [facility] BMI Calculated 16.17 10/26/2018 [facility] Height 167.64 cm 10/26/2018 [facility] Encounters Location Location Encounter Encounter Reason Attending ADM DC Stat us Source Details Type Number For Provider Date Date [facility] [id number] Marcela 10/26 11/06 [facility] Diaz /2018 [facility] Inpatient [id number] Lisette 11/17 11/23 [facility] Jaesey /2018 [facility] [id number] Rolly 11/30 12/01 [facility] Jae /2018 [facility] Procedures No Data Provided for This Section Assessment and Plan Assessment and Plan Date Source Extracted from:Title: General Neurolgy History and Physical 12/01/2018 [facility] Author: Lui Ruelas MD Date: 11/30/18 General Neurology History and Physical Patient: JORGE CALVILLO Chief Complaint: Seizures History of Present Illness: Mr. 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 Was give n Keppra 1 g and carbamazepine 300 mg at 2300 on 11/29/2018 along with aspirin 81 and Ativan 0.5 mg before being transferred to [facility] [place]. On arrival to [facility] patient was no longer seizing and appeared to be at neurological baseline. Was recently discharged from the stroke service on 11/22/2018 when he presented with upper extremity weakness and numbness with imaging consistent fo r MELAS. He was discharged on Vimpat 100 mg twice daily with coupons as reportedly had agitation in the past on Keppra. Upon asking the patient it is unclear if he was taking his Vimpat however his si izzy Richards who may have more information was not at bedside. Review of Systems: Gen: No fever, CVS: No CP, SOB Resp: No SOB, or cough Abd: No n/v, no abd pain MSK: No joint pains Derm: No rashes Allergic/immuno: No fevers, no allergies Endo: No palpitations : No urinary complaints reported Past Medical History: MELAS, Seizure disorder Past Surgical History: none Family Medical History: Mother: MELAS, DM Maternal GM, Aunt and Uncle: Melas with several strokes (3/4 all ). Social History: Patient is single and denies alcohol, tobacc o, or drug use. Medications: Arginine-L Vimpat 100 mg twice daily Ubiquinone Levocarnitine Allergies: amoxicillin Physical Exam: Vital Signs (last 24 hrs) Last Charted _ Temp Oral L 96.2DegF (NOV 30 03:00) Heart Rate Apical L 57bpm (NOV 30:00) Resp Rate 16 BRMIN (NOV 30:00) SBP 106 mmHg (NOV 30:00) DBP L 57mmHg (NOV 30:00) SpO2 100 % (NOV 30:00) Weight 38.56 kg (NOV 30 02:44) Height 165.1 cm (NOV 30 02:44) BMI 14.15 (NOV 30 02:44) GENERAL: Sleepy and drowsy but in no acute distress HEENT: - Normocephalic and atraumatic LUNGS - Clear to auscultation bilaterally with no wheezes CV - S1S2 RRR ABDOMEN - Soft, nontender NEURO: Mental Status: Sleepy and drowsy but arousable with verbal s timuli Language: speech is muffled and requires increased eff ort on the listeners part Cranial Nerves: PERRL 3mm/brisk. EOMI, v isual berry full, no facial asymmetry, facial sensation intact, hearing intact, tongue/uvula/soft palate midline. No evidence of tongue atrophy or fibrillations Motor: All extremities antigravity without drift Tone: is normal and bulk is decreased Reflexes: 2/4 b/l in biceps and patellars bilaterally Sensation- Intact to light touch bilaterally Coordination: Patient too sleepy to follow commands for fing er-to-nose test Gait- deferred Labs: [facility] A/G Ratio: 1 (11/17/18) AGAP: 13.5 mEq/L (11/18/18) Albumin Lvl: 3.9 g/dL (11/17/18) Alk Phos: 94 unit/L (11/17/18) ALT: 28 unit/L (11/17/18) Ammonia: 11 uMol/L (11/17/18) Amylase Lvl: 72 unit/L (11/17/18) AST: 26 unit/L (11/17/18) Basophils: 0.7 % (11/18/18) Basophils #: 0.1 K/CMM (11/18/18) Bili Direct: 0.1 mg/dL (11/17/18) Bili Indirect: 0.4 mg/dL (11/17/18) Bili Total: 0.5 mg/dL (11/17/18) BUN: 12 mg/dL (11/18/18) Calcium Lvl: 9.1 mg/dL (11/18/18) Chloride Lvl: 104 mEq/L (11/18/18) CO2: 23 mEq/L Low (11/18/18) Creatinine Lvl: 0.67 mg/dL (11/18/18) eGFR: 133 mL/min/1.73m2 (11/18/18) Eosinophils: 3.5 % (11/18/18) Eosinophils #: 0.3 K/CMM (11/18/18) Globulin: 4 g/dL (11/17/18) Gluc POC Comment 1: Notified RN/MD (11/18/18) Glucose Lvl: 104 mg/dL High (11/18/18) Glucose POC: 93 mg/dL (11/18/18) Hct: 37.1 % Low (11/18/18) Hgb: 13.1 g/dL Low (11/18/18) INR: 1.06 (11/16/18) Lactic Acid Lvl: 1.7 mMol/L (11/18/18) Lipase Lvl: 112 unit/L (11/17/18) Lymphocytes: 32.4 % (11/18/18) Lymphocytes #: 2.8 K/CMM (11/18/18) Magnesium Lvl: 1.9 mg/dL (11/18/18) MCH: 30.8 pg (11/18/18) MCHC: 35.2 g/dL (11/18/18) MCV: 87.6 fL (11/18/18) Monocytes: 7.7 % (11/18/18) Monocytes #: 0.7 K/CMM (11/18/18) MPV: 9.4 fL (11/18/18) Neutrophils #: 4.8 K/CMM (11/18/18) Phosphorus: 4.7 mg/dL High (11/18/18) Platelet: 228 K/CMM (11/18/18) POC Performing Location: See Note (11/18/18) Potassium Lvl: 3.5 mEq/L (11/18/18) PT: 13.6 seconds (11/16/18) PTT: 32.3 seconds (11/16/18) RBC: 4.24 M/CMM Low (11/18/18) RDW: 13.3 % (11/18/18) Segs: 55.7 % (11/18/18) Sodium Lvl: 137 mEq/L (11/18/18) Total CK: 85 unit/L (11/16/18) Total Protein: 7.9 g/dL (11/17/18) Troponin-I: 0.09 ng/mL (11/16/18) UA Bili: NEG (11/18/18) UA Blood: NEG (11/18/18) UA Color: cLight Yellow (11/18/18) UA Glucose: NEG (11/18/18) UA Ketones: NEG (11/18/18) UA Leuk Est: NEG (11/18/18) UA Mucus: cFew (11/18/18) UA Nitrite: NEG (11/18/18) UA pH: 6 (11/18/18) UA Protein: NEG (11/18/18) UA Spec Grav: 1.005 (11/18/18) UA Sq Epi: None Seen (11/18/18) UA Turbidity: Clear (11/18/18) UA Urobilinogen: <1.0 (11/18/18) UA WBC: 1 /HPF (11/18/18) WBC: 8.7 K/CMM (11/18/18) EKG: pending Imaging: CTH at OSH: Unchanged from prior MRI brain with and without contrast pending Assessment: 28-year-old male with past medical histo ry of MiraLAX and seizure disorder who presented with breakthrough seizures which are focal in nature with left facial twitching. 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 Repeat BMP and replete as neede d. 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 Patient improved symptoms since admission. [employer] car d application was offered but his sister Susie informed us that he doesn't qualify and he applied for disability. - EEG ordered to confirm no active seizures - PT/OT evaluation pending Discharge planned for tomorrow ( 9) and patient informed to follow up in one month at [facility] with neurologist. Neurology staff Teaching physician statement I reviewed the residents note, personall y reviewed all the patients labs and imaging studies and personally performed a complete neurological exam. I discussed the assessment and plan of care and agree with the plan as outlined in the resident's note. Dx: focal motor status epilepticus, MELAS -improved with CBZ. Will continue and titrate up as needed. -gold card application, f/u [facility] in 2-4 w eeks -cont l arginine, coq10, levocarnitine Rolly Rowe DO [facility], Neurohospitalist Security Analyst of Neurology Extracted from:Title: Stroke Progress Note 11/23/2018 [facility] Author: Eli Morse MD Date: 11/21/18 STROKE TEAM PROGRESS NOTE Subjective Overnight Events: No acute overnight brad nts. Patient is feeling well and denies any new symptoms. Brief H&P: Pt is a 28 y/o M with hx of MELAS (dx ) who was recently discharged from the stroke service on 11/05/2018 and presents now with slurred speech and bilateral UE numbness and tingling. Per aunt sy mptoms started yesterday morning when pt noted to be confused with have new slurred speech and was complaining of bilateral UE numbness and tingling R>L. As the day went on aunt states that pt ap peared to have more difficulty holding o bjects in the R hand and also had worsening tremor. Family denies any clear seizures, however aunt states that pt has been having episodes of "spacing out. & quot;CTH in ED with bilateral hypodensit ies similar in appearance to prior CTH from 09/2018. After discharge pt with one GTC after mi ssing Vimpat dose due to issues obtaining medication. Pt contacted Dr. Morales's office and was placed on Keppra briefly, but was able to restart Vimpat on Sunday. ROS GEN: no fever, chills, weight loss, fatigue EYES: no blurred vision, double vision CARDIO: no chest pain, palpitations PULM: no shortness of breath, cough Scheduled Meds (9): 11/17/18 (Suspended) arginine (L-Arginine) 5,000 mg PO TID 11/20/18 arginine (L-Arginine) 3,000 mg PO TID 11/17/18 docusate 100 mg PO Daily 11/17/18 heparin 5,000 unit SUB-Q Q8H 11/20/18 lacosamide (Vimpat) 100 mg PO Q12H 11/17/18 levOCARNitine (Carnitor) 330 mg PO TID 11/17/18 senna 8.6 mg PO Daily 11/17/18 sodium chloride (Saline Flush 0.9%) 10 ml IVP Q12H 11/17/18 ubiquinone 800 mg PO TID Objective Vitals Tmp(F) Pulse BP RR SpO2 FIO2 11/21 09:09 98 86 125/85 18 100 --- 11/21 04:45 98.7 75 130/77 18 99 --- 11/20 23:25 97.8 81 117/85 18 97 --- 11/20 19:40 98.4 90 100/68 18 100 --- 11/20 16:32 97 72 106/60 18 98 --- 24 Hr Tmax: 98.7F (37.06c) at 11/21 04:4 5 Vital Signs are the last 5 in the past 48 hours. GENERAL: Awake, alert in NAD HEENT: - Normocephalic and atraumatic, LUNGS - Clear to auscultation bilaterally with no wheezes CV - S1S2 RRR ABDOMEN - Soft, nontender, nondistended with normoactive BS NEURO: Mental Status: AA&Ox3 Language: speech is dysarthric . Naming , repetition, fluency, and comprehension intact. Cranial Nerves: PERRL 3 mm/brisk. EOMI, visual berry full, no facial asymmetry, facial sensation intact, hearing intact, tongue/uvula/soft palate midline, normal sternocleidomastoid and trapezius muscl e strength. No evidence of tongue atrophy or fibrillations Motor: LUE AG with mild drift, LLE 5/5, RUE AG no drift, RLE 5/5 Tone: is normal and bulk is normal Sensation- Intact to light touch bilaterally Coordination: FTN intact bilaterally, no ataxia in BLE. Gait- deferred Daily Labs: Labs (Last four charted values) WBC 8.7 (NOV 18) 10.1 (NOV 16) Hgb L 13.1 (NOV 18) L 12.9 (NOV 16) Hct L 37.1 (NOV 18) L 37.3 (NOV 16) Plt 228 (NOV 18) 254 (NOV 16) Na 137 (NOV 18) 139 (NOV 16) K 3.5 (NOV 18) 3.5 (NOV 16) CO2 L 23 (NOV 18) 26 (NOV 16) Cl 104 (NOV 18) 100 (NOV 16) Cr 0.67 (NOV 18) 0.75 (NOV 16) BUN 12 (NOV 18) 15 (NOV 16) Glucose Random H 104 (NOV 18) 99 (NOV 16) Mg 1.9 (NOV 18) Phos H 4.7 (NOV 18) Ca 9.1 (NOV 18) 9.2 (NOV 16) PT 13.6 (NOV 16) INR 1.06 (NOV 16) PTT 32.3 (NOV 16) Troponin 0.09 (NOV 16) Total CK 85 (NOV 16) Stroke Work-Up: Hgb A1C: 5.4 % (10/26/18 05:46:00) CHD Risk: 4 (10/26/18 05:46:00) Chol: 136 mg/dL (10/26/18 05:46:00) HDL: 34 mg/dL Low (10/26/18 05:46:00) LDL (Calculated): 78 mg/dL (10/26/18 05:46:00) Tri mg/dL (10/26/18 05:46:00) VLDL: 24 (10/26/18 05:46:00) Alk Phos: 94 unit/L (11/17/18 01:25:00) A/G Ratio: 1 (11/17/18 01:25:00) ALT: 28 unit/L (11/17/18 01:25:00) Albumin Lvl: 3.9 g/dL (11/17/18 01:25:00) Bili Direct: 0.1 mg/dL (11/17/18 01:25:00) Bili Indirect: 0.4 mg/dL (11/17/18 01:25:00) Bili Total: 0.5 mg/dL (11/17/18 01:25:00) Total Protein: 7.9 g/dL (11/17/18 01:25:00) Globulin: 4 g/dL (11/17/18 01:25:00) AST: 26 unit/L (11/17/18 01:25:00) Imaging: CT Head: 1. No acute intracranial hemorrhage. 2. Cytotoxic edematous changes are note d within bilateral MCA distributions and questionable involvement within bilateral superior dorsal cerebellar hemispheres. These findings are concerning for acute bilateral ischemic infarcts possibly re lated to multifocal embolic phenomenon. This finding may also be related to history of MELAS. This should be further evaluated with MRI of the brain without contrast. CTA H&N: 1. No definite evidence of flow-limiting stenosis, major branch occlusion, vascular injury or aneurysm is identified. 2. No definite match or mismatch perfusi on abnormality to suggest acute ischemia/infarct. CXR: 1. No acute cardiopulmonary abnormality. IMPRESSION: Biparietal/bitemporal areas of predomina ntly, cortically-based diffusion restriction likely related to sequelae of MELAS Assessment:28 y/o M with MELAS presentin g with dysarthria, RSW and b/l UE tingling. CTH appears to be similar to prior imaging on previous admission, however given new symptoms, new stroke-like events cannot be ruled-out Plan: -Acute Ischemic Stroke MELAS Acuity: Acute Current Suspected Etiology: Continue Evaluation: -Blood pressure control, goal of SYS normotensive -Resume IV arginine tx -Hyperglycemia management per SSI to maintain glucose 140-18 0mg/dL. 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 Neurology PGY-2 STROKE STAFF I have personally evaluated the patient. i have reviewed the resident 's note detailed above. I agree with the resident's findings, assessment and plan as outlined in the note except as detailed below. 11/19: patient currently working with [facility] therapy. Per chart review he is felt to be a good inpatient rehab candidate by all three therapy services. Will consult PMR and refer to inpatient rehab. 724: had long conversation with the lamar ent today regarding his rehab needs. I explained that all three therapy services felt that inpatient rehab would be appropriate for him. When I explained this wou ld be an additional stay away from home, he was not at all interested in an inpatient rehab stay. He informed me that there were several family members who could minimize the amount time that he spent a t home if we discharged him. We need to confirm this with his sister as we will likely pursue a homeland discharge since he would prefer to go home rather than stay in inpatient rehab. 11/21: pt has continued to improve to int ermitting supervision per therapy notes. need to work out his AED regimen and might be able to go home as early as tomorrow. Extracted from:Title: Stroke History and Physical Author: Sayra Epps MD Date: 11/17/18 Stroke History and Physical Patient: Alyson,Male (Jorge Calvillo) Consult Requested By: Code Stroke Chief Complaint: slurred speech, bilateral UE tingling History of Present Illness: Pt is a 28 y/o M with hx of MELAS (dx ) who was recently discharged from the stroke service on 11/05/2018 and presents now with slurred speech and bilateral UE numbness and tingling. Per aunt sy mptoms started yesterday morning when pt noted to be confused with have new slurred speech and was complaining of bilateral UE numbness and tingling R>L. As the day went on aunt states that pt ap peared to have more difficulty holding o bjects in the R hand and also had worsening tremor. Family denies any clear seizures, however aunt states that pt has been having episodes of "spacing out. & quot;CTH in ED with bilateral hypodensit ies similar in appearance to prior CTH from 09/2018. After discharge pt with one GTC after mi ssing Vimpat dose due to issues obtaining medication. Pt contacted Dr. Morales's office and was placed on Keppra briefly, but was able to restart Vimpat on Sunday. Review of Systems: GEN: no fever, chills, weight loss, fatigue EYES: +blurred vision, CARDIO: no chest pain, palpitations PULM: no shortness of breath, cough GI: no nausea, vomiting, diarrhea, no abd pain : no frequency, dysuria, hematuria NEURO: see HPI SKIN: no rash or lesion MSK: no pain, swelling, redness, heat in muscles, no limited ROM, weakness, or atrophy, no cramps LYMPH/IMMUNO: No lymph node enlargement/tenderness, no heat/ cold intolerance Past Medical History: MELAs Past Surgical History: none Family Medical History: MELAs Social History: Lives with family Denies alcohol and illicit drug use. Smokes Medications: CQ10 Vimpat Arginine Olanzapine Allergies: amoxicillin Physical Exam: Vitals Tmp(F) Pulse BP RR SpO2 FIO2 11/17 02:30 ---- 63 143/90 -- 100 --- 11/17 02:25 98.4 --- ----- -- --- --- 11/17 01:38 98.9 60 124/78 20 100 --- 11/17 00:30 ---- 67 125/77 20 100 --- 11/16 23:00 ---- 61 121/89 19 100 --- 24 Hr Tmax: 98.9F (37.17c) at 11/17 01:3 8 Vital Signs are the last 5 in the past 48 hours. GENERAL: Awake, alert in NAD HEENT: - Normocephalic and atraumatic, LUNGS - Clear to auscultation bilaterally with no wheezes CV - S1S2 RRR ABDOMEN - Soft, nontender, nondistended with normoactive BS NEURO: Mental Status: AA&Ox3 Language: speech is dysarthric . Naming , repetition, fluency, and comprehension intact. Cranial Nerves: PERRL 3 mm/brisk. EOMI, visual berry full, no facial asymmetry, facial sensation intact, hearing intact, tongue/uvula/soft palate midline, normal sternocleidomastoid and trapezius muscl e strength. No evidence of tongue atrophy or fibrillations Motor: LUE AG with mild drift, LLE 5/5, RUE AG no drift, RLE 5/5 Tone: is normal and bulk is normal Sensation- Intact to light touch bilaterally Coordination: FTN intact bilaterally, no ataxia in BLE. Gait- deferred Pre-Morbid MRS 1-No significant post stroke disability and can perform usual duties with stroke symptoms NIH Stroke Scale (NIHSS) 1a. Level of Consciousness; 0-alert 1-drowsy 2-stupor 3-co ma 1b. LOC Questions month and age; 0-both 1-one 2-neithe r 1c. 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 Best Gaze; 0-nl 1-partial 2-forced gaze 3. Visual Berry; 0-No visual loss. 1-Partial hemianop ia 2-Complete 3-Bilateral 4. Facial Palsy; 0-none 1-minor 2-partial 3-complete 5. Motor - R arm; 0-No drift 1-Drift 2 -Some antigravity 3-No antigravity 4- No movement 6. Motor - R leg; 0-No drift 1-Drift 2 -Some antigravity 3-No antigravity 4- No movement 1 7. Motor - L arm; 0-No drift 1-Drift 2 -Some antigravity 3-No antigravity 4- No movement 8. Motor - L leg; 0-No drift 1-Drift 2 -Some antigravity 3-No antigravity 4- No movement 9. Limb Ataxia; 0 absent 1 - 1limb 2 - 2 limbs 10. Sensory; 0-nl 1-partial loss 2-dense loss 11. Best Language; 0-nl 1-mild/mod 2-severe 3-mute 1 12. Dysarthria; 0-nl 1-mild/mod 2-severe x-unt estable 13. Extinction and Inattention (forme rly Neglect); 0-none 1-partial 2-complete 2 Total Labs: Labs (Last four charted values) WBC 10.1 (NOV 16) Hgb L 12.9 (NOV 16) Hct L 37.3 (NOV 16) Plt 254 (NOV 16) Na 139 (NOV 16) K 3.5 (NOV 16) CO2 26 (NOV 16) Cl 100 (NOV 16) Cr 0.75 (NOV 16) BUN 15 (NOV 16) Glucose Random 99 (NOV 16) Ca 9.2 (NOV 16) PT 13.6 (NOV 16) INR 1.06 (NOV 16) PTT 32.3 (NOV 16) Troponin 0.09 (NOV 16) Total CK 85 (NOV 16) EKG: sinus Imaging: CT Head: 1. No acute intracranial hemorrhage. 2. Cytotoxic edematous changes are note d within bilateral MCA distributions and questionable involvement within bilateral superior dorsal cerebellar hemispheres. These findings are concerning for acute bilateral ischemic infarcts possibly re lated to multifocal embolic phenomenon. This finding may also be related to history of MELAS. This should be further evaluated with MRI of the brain without contrast. CTA H&N: 1. No definite evidence of flow-limiting stenosis, major branch occlusion, vascular injury or aneurysm is identified. 2. No definite match or mismatch perfusi on abnormality to suggest acute ischemia/infarct. CXR: 1. No acute cardiopulmonary abnormality. Assessment:28 y/o M with MELAS presentin g with dysarthria, RSW and b/l UE tingling. CTH appears to be similar to prior imaging on previous admission, however given new symptoms, new stroke-like events cannot be ruled-out Plan: -Acute Ischemic Stroke MELAS Acuity: Acute Current Suspected Etiology: Continue Evaluation: -Admit to: Stroke unit -MRI brain to eval for new lesions -Blood pressure control, goal of SYS normotensive -Will consider IV arginine tx -Hyperglycemia management per SSI to maintain glucose 140-18 0mg/dL. 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 (arginine, etc.) Seizure -continue Vimpat Cerebral edema -Close neuro monitoring -arginine Dysarthria Dysphagia following cerebral infarction -NPO until cleared by speech Hemiplegia and hemiparesis following cer ebral infarction affecting left dominant side -PT/OT RESP stable on RA HEME Anemia -Monitor -transfuse for hgb < 7 Prophylaxis DVT: heparin Bowel: docusate/senna Diet: NPO until cleared by speech Code Status: Full Code THE FOLLOWING WERE PRESENT ON ADMISSION: DISASTER OR DAMAGE CONTROL SPECIALIST - Acute Ischemic Stroke, Cerebral Edema, MELAS, seizure , dysphagia Heme- Anemia ACUTE STROKE BENCHMARKS: TIME PT LAST SEEN NORMAL morning 11/16 (unclear time) EMS PRE-NOTIFICATION 2212 CODE STROKE ACTIVATION 2211 ARRIVAL TIME 2214 TIME OF STROKE TEAM EVALUATION 2215 CT HEAD READ TIME 2216 IV tPA bolus (time and dose) n/a IV tPA infusion (time and dose) n/a If not a candidate for IV tPA, why? likely 2/2 to MELAS Delays in this process: (None) Pt discussed with stroke fellow Dr. Tamika Epps MD [facility] Neurology PGY3 -------- STROKE ATTENDING I have personally seen and examined the patient. I have personally viewed the patient's radiographic studies and laboratory tests. Furthermore, I have reviewed the residen t's note, and agree with the history, exam, assessment, and plan. See note below for additions and/or modifications, and my findings. Known history of MELAS, recent discharge after new strokes, seizures, and prolonged agitation. Presents with bilateral hand weakness and dysarthria. Unclear compliance with meds, some concern for mild s eizures at home. MRI with new DWI findin gs bilaterally. Seizure this morning. Start arginine infusion, increase Vimpat to 100mg BID, swallow evaluation, lactic acidosis 1.7 E88.41 MELAS Seizure I10 Essential (primary) hypertension G93.6 cerebral edema I discussed the plan and philosophy of c are with the patient's sister and family. All questions answered. 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) Unspecified convulsions (R56.9) Toxic encephalopathy (G92) Discharge Diagnosis: Diagnoses This Visit (E88.41) (I63.9) Ischemicstroke(I63.9) MELAS(mitochondrialencephalopathy,lacticacidosisandstr julia-likeepisodes)(E88.41) Seizure(R56.9) Toxicmetabolicencephalopathy(G92) Consults Obtained: Lisha Morales MD; Josep Taylor; Wang Perkins MD; Yamil Jimenez MD; Delmy Goel MD Hospital Course: Jorge is a 28 year old male recently diag nosed with MELAS at [facility] (discharged on 10/23) presenting with worsening cognition and increased agitation On 10/17 he was taken [facility] for b/l hearing loss. He was initially diagnosed with a sinus infection and was prescribed ABX and subsequently discharged home. The following day, his sister noticed that his cognition and began "spacing out&quot ; worsened and was taken [facility] wh ere he was then transferred to [facility] for higher level of care. Upon arrival CT Brain was obtained and revealed symmetric restricted diffusion in the bila teral anterolateral temporal lobes with underlying subcortical white matter involvement and gyral swelling, strongly suggestive of acute infarcts related to MELAS. An MRI obtained on the following day r evealed increased lactate in the longo ma tter and deep white matter of bilateral temporal parietal-lobes likely representing anaerobic metabolism given recent ischemic changes He was admitted to the neur ology unit where he received IV arginine x 4 days and discharged with CoQ10, Citrulline, Arginine, and atorvastatin. Per sister, the patient has been noncompliant with his medications. After discharge, the patient was slightly agitated, but t olerable. Today, the patient's cognition worsened and began processing information even slower than his baseline, appearing very spaced out with episodes nedra ppropriate laughter. His agitation seeme d to worsen as the day progressed becoming very violent and destructive at home. The family decided to bring the patient to the ED thereafter. In the ED his agita tion heightened and he began fighting wi th the ER staff. He was given several doses of versed, haldol x1, ketamine x1 and placed on restraints. Of note, previous members in his family were diagnosed with MELAS including Mother and Maternal GM, Maternal aunt and uncles. Also, his sister reports that atorvastatin was also prescribed to his mother which reportedly interacted with the medications she was ta toshia for MELAS. Hospital Course: 10/26: admitted to ICU, required restrai nts and sedatives to calm down. EEG started. Consulted Dr. Morales. Started Arginine and Dextrose, as well as Keppra. 10/27: Remained agitated overnight. Required ziprasidone. 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 He was agitated thus brought back to us. It's unclear if he has any new infarcts but even so a repeat MRI would not change the man agement. An underlying encephalitis is less likely as his exam is not consistent with that. Both tests will require general anaesthesia and sedation which may hav e a negative impact on his progress. Avel noonan arginine for now, consult psychiatry and will discuss further with , mitochondrial diseases specialist. We will switch to Vimpat given the agitation which Luis Alfredo prince y contribute to. 10/30: Mr. Calvillo was agitated again ye but better now on a regimen recommended by psychiatry. He had fever overnight with leukocytosis but normothermic now, on abx, could be a UTI. We will reac h a conclusion with whether to proceed with repeat LP and MRI. 10/31: Mr. Calvillo is unchanged neurolog ically. His aggression is fairly well controlled. There has been a discussion with his family and in regards to goals of care given his prolonged illnes s and family experience with prior membe rs. His sister expressed an interest in discussing those with palliative care. to have a discussion with the family next week. Any diagnostic testing is on hold for now. 11/01: Mr. Calvillo is much less agitated , on Zyprexa, cooperative with PT/OT, off mittens but still requiring restrains. Afebrile, lactate stable. Family meeting to discuss goals of care on Sunday. 11/02: Mr. Calvillo is off restrains, les s agitated, transferred to the floor and doing ok, psychiatry titrating his Zyprexa, EKG did not show prolonged QT. Family meeting remains on Sunday. 11/03: Mr. Calvillo is doing fairly well, no acute events overnight, psychiatry following, family meeting tomorrow. 11/04: Mr. Calvillo is unchanged since , not agitated the last few days for [...] pulses bilaterally. ABDOMEN: soft, non-tender, non-distended, normoactive b owel sounds. NEUROLOGY: Alert, restless Speech: Fluent APhasia Cranial Nerves: pupils round and re active to light bilaterally, no gaze deviation, EOMI, [...] 02) 9.8 (NOV 01) Hgb L 12.5 (Oct 8) L 11.3 (NOV 03) L 12.2 (NOV 02) L 12.6 (NOV 01) Hct L 35.6 (Oct 8) L 31.5 (NOV 03) L 33.6 (NOV 02) L 34.6 (NOV 01) Plt 218 [...] (NOV 01) Glucose Random H 224 (NOV 04 ) 94 (NOV 03) 98 (NOV 02) H 106 (NOV 01) Mg 1.8 (NOV 04) 1.8 (NOV 03) L 1.5 (NOV 02) 1.8 (NOV 01) Phos H 5.4 (NOV 04 ) 4.2 (NOV 03) 4.1 (NOV 02) 4.2 (NOV 01) Ca L 8.1 (NOV 04 ) L 8.0 (NOV 03) 8.9 (NOV 02) [...] OLANZapine: 5 mg,1 tab,PO,PRN,PRN (Other -See Comment),PRN Q 12 arginine: 5,000 mg,10 cap,PO,TID lacosamide: 50 mg,1 tab,PO,BID melatonin: 6 mg,2 tab,PO,Bedtime,PRN (Sleep) ubiquinone: 400 mg,2 cap,PO,Daily Disposition: ED Admitted Follow up: Follow Up With Dr. Morales, Call for appointment, within : 5 Weeks, reason: Follow Up On Treatment Discharge Instructions: Please notify your physician if any of the following occur: Bleeding, Fever, Nausea, Pain, Shortness of breath, Signs of infection, Swelling Other Information Special Home Care Instructions: Stroke DC instructions: You were admitted to the [facility] at [facility] in the [facility]. You were admitted for MELAS Crisis. Discharge Medications arginine 500 mg oral capsule 5,000 mg = 10 cap, PO, TID lacosamide 50 mg oral tablet 50 mg = 1 tab, PO, BID melatonin 3 mg oral tablet 6 mg = 2 tab, PRN, PO, Bedtime OLANZapine 5 mg oral tablet 5 mg = 1 tab, PRN, PO, PRN ubiquinone 200 mg oral capsule 400 mg = 2 cap, PO, Daily Follow-up appointments: - Please Follow Up with Dr. Morales on January 06 2019 at 2:30 PM Please call our nurse navigator Santa ([phone]) with any questions after discharge. Please take your discharge paperwork with you to your follow-up appointments. Returning back to work/school will be addressed at your follow-up appointment. Stroke clinic address: [facility] [address] [place] [address] , [address] [place] [address] Extracted from:Title: Stroke Progress Note Author: Darrin Berrios MD Date: 11/05/18 Stroke Team Progress Note Name: Jorge Calvillo Admission Date: 10/26/2018 Brief H&P: Jorge is a 28 year old male recently diag nosed with MELAS at [facility] (discharged on 10/23) presenting with worsening cognition and increased agitation On 10/17 he was taken [facility] for b/l hearing loss. He was initially diagnosed with a sinus infection and was prescribed ABX and subsequently discharged home. The following day, his sister noticed that his cognition and began "spacing out&quot ; worsened and was taken [facility] wh ere he was then transferred to [facility] for higher level of care. Upon arrival CT Brain was obtained and revealed symmetric restricted diffusion in the bila teral anterolateral temporal lobes with underlying subcortical white matter involvement and gyral swelling, strongly suggestive of acute infarcts related to MELAS. An MRI obtained on the following day r evealed increased lactate in the longo ma tter and deep white matter of bilateral temporal parietal-lobes likely representing anaerobic metabolism given recent ischemic changes He was admitted to the neur ology unit where he received IV arginine x 4 days and discharged with CoQ10, Citrulline, Arginine, and atorvastatin. Per sister, the patient has been noncompliant with his medications. After discharge, the patient was slightly agitated, but t olerable. Today, the patient's cognition worsened and began processing information even slower than his baseline, appearing very spaced out with episodes nedra ppropriate laughter. His agitation seeme d to worsen as the day progressed becoming very violent and destructive at home. The family decided to bring the patient to the ED thereafter. In the ED his agita tion heightened and he began fighting wi th the ER staff. He was given several doses of versed, haldol x1, ketamine x1 and placed on restraints. Of note, previous members in his family were diagnosed with MELAS including Mother and Maternal GM, Maternal aunt and uncles. Also, his sister reports that atorvastatin was also prescribed to his mother which reportedly interacted with the medications she was ta toshia for MELAS. Overnight Events: No acute events overni ght. Zyprexa is weaned off. Agitation overall stable, not requiring restraints continuously. Hospital Course: 10/26: admitted to ICU, required restrai nts and sedatives to calm down. EEG started. Consulted Dr. Morales. Started Arginine and Dextrose, as well as Keppra. 10/27: Remained agitated overnight. Required ziprasidone. 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 He was agitated thus brought back to us. It's unclear if he has any new infarcts but even so a repeat MRI would not change the man agement. An underlying encephalitis is less likely as his exam is not consistent with that. Both tests will require general anaesthesia and sedation which may hav e a negative impact on his progress. Con tinue arginine for now, consult psychiatry and will discuss further with , mitochondrial diseases specialist. We will switch to Vimpat given the agitation which Kejudi sullivan contribute to. 10/30: Mr. Cavlillo was agitated again ye sterday but better now on a regimen recommended by psychiatry. He had fever overnight with leukocytosis but normothermic now, on abx, could be a UTI. We will reac h a conclusion with whether to proceed with repeat LP and MRI. 10/31: Mr. Calvillo is unchanged neurolog ically. His aggression is fairly well controlled. There has been a discussion with his family and in regards to goals of care given his prolonged illnes s and family experience with prior membe rs. His sister expressed an interest in discussing those with palliative care. to have a discussion with the family next week. Any diagnostic testing is on hold for now. 11/01: Mr. Calvillo is much less agitated , on Zyprexa, cooperative with PT/OT, off mittens but still requiring restrains. Afebrile, lactate stable. Family meeting to discuss goals of care on Sunday. 11/02: Mr. Calvillo is off restrains, les s agitated, transferred to the floor and doing ok, psychiatry titrating his Zyprexa, EKG did not show prolonged QT. Family meeting remains on Sunday. 11/03: Mr. Calvillo is doing fairly well, no acute events overnight, psychiatry following, family meeting tomorrow. 11/04: Mr. Calvillo is unchanged since , not agitated the last few days for [...] pulses bilaterally. ABDOMEN: soft, non-tender, non-distended, normoactive b owel sounds. NEUROLOGY: Alert, restless Speech: Not dysarthric. Cranial Nerves: pupils round and re active to light bilaterally, no gaze deviation, EOMI, [...] H 12.1 (OCT 31) Hgb L 11.3 (OCT 0 7) L 12.2 (NOV 02) L 12.6 (NOV 01) L 13.5 (OCT 31) Hct L 31.5 (OCT 0 7) L 33.6 (NOV 02) L 34.6 (NOV 01) L 38.5 (OCT 31) Plt 207 (NOV 03) 194 (OCT 06) 213 (OCT 05) 204 (OCT 31) Na 143 (NOV 02) 142 (OCT 05) 140 (OCT 31) 138 (OCT 30) K C 3.0 (NOV 02 ) L 3.4 (NOV 01) L 3.3 (OCT 31) L 3.1 (OCT 30) CO2 L 20 (NOV 02) L 21 (NOV 01) L 20 (OCT 31) L 18 (OCT 30) Cl H 112 (NOV 02 ) H 111 (NOV 01) 108 (OCT 31) 107 (OCT 30) Cr 0.62 (NOV 02) 0.69 (NOV 01) 0.54 (OCT 31) 0.82 (OCT 30) BUN 7 (NOV 02) 7 (NOV 01) L 5 (OCT 31) L 4 (OCT 30) Glucose Random 98 (NOV 02) H 106 (NOV 01) H 136 (OCT 31) H 164 (OCT 30) Mg L 1.5 (NOV 02 ) 1.8 (NOV 01) L 1.6 (OCT 31) L 1.4 (OCT 30) Phos 4.1 (NOV 02) 4.2 (NOV 01) 3.6 (OCT 31) 2.7 (OCT 30) Ca 8.9 (NOV 02) 8.8 (NOV 01) 9.1 (OCT 31) 9.0 (OCT 30) Imaging Studies: Brain wo contrast CT (10/26/2018): 1. Subacute infarction involving bilate ral temporal lobes and to a lesser extent extending into the right greater than left contiguous parietal lobes. Areas of curvilinear increased density in the righ t greater than left temporal lobes may r epresent areas of residual cortex versus evolving petechial hemorrhage. 2. Chronic infarcts in the bilateral thalami. TTE: 1) Left ventricular structure and function is normal. 2) The overall estimated ejection fraction is 55 - 60%. 3) Mitral valve structure and function and left atrial struc ture are normal. 4) There is trace mitral regurgitation. 5) Aortic valve structure and function and the ascending aor ta are normal. 6) There is no hemodynamic abnormality noted across the aort ic valve. 7) Right ventricular size, structure and funciton, tricuspid valve structure and function and right atrial structure are normal. 8) There is trace tricuspid regurgitatio n with normal estimated right sided pressures. 9) The pericardium is normal. 10) There is no evidence of a shunt at t he level of the interatrial septum by agitated saline contrast injection either at rest or with a maneuvers. 11) There is no previous study for comparison. CSF Studies Done at [facility] (10/20/2018) Gl 56, P 76, WBC 3 ( 2 lymp, 1 macro), RBC 1 NMDA- Negative LDH- 124 LA- 3.9 Beta 2 micro- 1/1 OLVIN- 0.7 EBV - Negative VDRL- Negative VDRL- Non-reactive CMV- Negative Listeria- Negative Neisseria-Negative HSV- Negative VZV- Negative Crypto- Negative AFB-Negative Gram- occasional Mononuclear Cells, No org ASSESSMENT/PLAN: Jorge is a 28 year old male recently diag nosed with MELAS at [facility] (discharged on 10/23) presenting with worsening cognition and increased agitation. Stroke risk factors include MELAS. PE: s hows no new focal neurological deficits. (Unable to test the patient's hearing as he was very sedated). Brain CT shows subacute infarction involving bilatera l temporal regions with few bilateral s cattered hyperdensities, suggestive of hemorrhagic conversions. Small focal hypodensity in bilateral cerebellum without associated surrounding edema, favoring chronic infarction in nature. 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 MELAS B/L Hearing loss Possible seizures causing worsening cognition and agitation Acute Ischemic Stroke (non-tPA): - Hold Aspirin - CTH shows slight progression of right frontoparietal infarct. Pending MRI MRA, might need sedation. - ECHO - Switched [...] to 2.5mg BID and then stopping on 11/02 PM - Continue Zyprexa 2.5mg IM q4h PRN, not to exceed 4 doses p er day Prophylaxis DVT: MADIHA, SCD. GI: Famotidine. Bowel: Docusate. Rehab Services PT/OT/ST: Awaiting [facility] ([facility]) versus home with HH and family training for close supervision. DVT ppx: SCDs Diet: Regular Diet Code Status: Full Code. Disposition:? Darrin Berrios MD, MPH Neurology Resident PGY-3 [facility] Addendum by Marcela Diaz MD on 11/05/2018 21:21 STROKE STAFF I have personally evaluated the patient. i have reviewed the resident 's note detailed above. I agree with the resident's findings, assessment and plan as outlined in the note except as detailed below. Extracted from:Title: Supportive Medicine Consult Note Author: Chey Austin MD Date: 10/30/18 Jorge Calvillo is a 28 year old male rec ently diagnosed with MELAS at [facility] presenting with worsening cognition and increased agitation, as well as b/l hearing loss and 3rd stroke in last two weeks. Supp ortive medicine consulted for GOCandassistance with lashanda cesar #Anorexia - patient not eating meals, refusing isaiah d, has only had half a gatorade so [...] now, will need to reach out to SW/reception interviewer to try and get in touch with patient's father in assisted - if he is unreachable, decision makers would be patient's t wo sisters ATTENDING ATTESTATION I have personally interviewed and examin ed this patient with the resident, Dr. Austin on 10/30. I agree with the exam and plans documented in the resident's note above. I have personally reviewed the patient's pertinent labs and radiology results. Patient does not respond to any question s. Sister at bedside reports hehas not been eating and hasn't had any BMs either. He has been restless andagitated.They do not have the ability to care for p atient at home and would like assistance with discussingwhere he can go from here. On review, patient's father in assisted is the legal surrogate, if he is reasonably available. We willsee if chaplainscan assist in getting hold of him. Otherwise sisters would be NOK. We have discussed the patient with primary team physician. Thank you for the opportunity to partici roe in this patient's care. We will follow along with you. [facility] Supportive Medicine Pager:#[phone](24 hours / 7 days) Extracted from:Title: Stroke Team H&P Author: Vince Johnson MD Date: 10/26/18 MT-STROKE HISTORY AND PHYSICAL Attending of Record: Dr. Diaz Patient Name: Jorge Calvillo Date of Admission: 10/26/2018 Chief Complaint: Worsening Cognition and agitation HPI: Jorge is a 28 year old male recently diag nosed with MELAS at [facility] (discharged on 10/23) presenting with worsening cognition and increased agitation On 10/17 he was taken [facility] for b/l hearing loss. He was initially diagnosed with a sinus infection and was prescribed ABX and subsequently discharged home. The following day, his sister noticed that his cognition and began "spacing out&quot ; worsened and was taken [facility] wh ere he was then transferred to [facility] for higher level of care. Upon arrival CT Brain was obtained and revealed symmetric restricted diffusion in the bila teral anterolateral temporal lobes with underlying subcortical white matter involvement and gyral swelling, strongly suggestive of acute infarcts related to MELAS. An MRI obtained on the following day r evealed increased lactate in the longo ma tter and deep white matter of bilateral temporal parietal-lobes likely representing anaerobic metabolism given recent ischemic changes He was admitted to the neur ology unit where he received IV arginine x 4 days and discharged with CoQ10, Citrulline, Arginine, and atorvastatin. Per sister, the patient has been noncompliant with his medications. After discharge, the patient was slightly agitated, but t olerable. Today, the patient's cognition worsened and began processing information even slower than his baseline, appearing very spaced out with episodes nedra ppropriate laughter. His agitation seeme d to worsen as the day progressed becoming very violent and destructive at home. The family decided to bring the patient to the ED thereafter. In the ED his agita tion heightened and he began fighting wi th the ER staff. He was given several doses of versed, haldol x1, ketamine x1 and placed on restraints. Of note, previous members in his family were diagnosed with MELAS including Mother and Maternal GM, Maternal aunt and uncles. Also, his sister reports that atorvastatin was also prescribed to his mother which reportedly interacted with the medications she was ta toshia for MELAS. LSN at 10/24/18 in the [...] daily Physical Exam: Vitals Tmp(F) Tmp(C) Ttype B P MAP Pulse RR SpO2 FIO2 ETCO2 10/26 04:03 ---- ---- ---- 1 96 91 18 100 --- --- 10/26 03:43 97.6 36.44 axil 113/63 82 74 18 100 --- --- 10/26 03:20 ---- ---- ---- 1 80 74 17 100 --- --- 10/26 03:00 ---- ---- ---- 1 80 83 17 99 --- --- 10/26 02:37 ---- ---- ---- 1 78 104 19 98 --- --- 24 Hr Tmax: 97.6F (36.44c) at 10/26 03:4 3 Vital Signs are the last 5 in the past 48 hours. 24 Hr Tmin: 97.6F (36.44c) at 10/26 03: 43 Weights are the last 5 in 60 days, plus initial. Date Wt(kg) Wt(lb) Ht(cm) Ht(in) Method BM I BSA (no weights recorded) (no point of care glucose results charted in last 24 hours) Most Recent Scores: 10/26/18 [place] Coma Score 13 Lines, Tubes, and Drains: 10/26/2018 02:38 Peripheral Lines: Forea rm Left 18 gauge Over the needle catheter (no surgical procedures documented) GENERAL: sedated, drowsy HEENT: normocephalic and atraumatic. LUNGS: clear to auscultation bilaterally. CV: no murmur, equal pulses bilaterally. ABDOMEN: soft, non-tender, non-distended, normoactive b owel sounds. NEUROLOGY: Sedated and drowsy, responds to pain Speech: Unable to assess Cranial Nerves: pupils round and re active to light bilaterally, no gaze deviation, EOMI, no facial droop. Motor: - Tone: normal. - Power: 5/5 in all groups of muscles in all four limbs. Sensory: -Withdraws to pain in all extremities Cerebellar signs: unable to assess. Gait: deferred (fall risk). NIH score could not be calculated as pat ient was sedated with several medications in the ED PREMORBID MRS 2 - Slight disability - UNABLE to perfor m all activities but does not need assistance. DIAGNOSTIC TESTS: EKG: pending. CT head: pending. CTA Head and Neck: pending. MRI brain: pending. 2D Echo: pending. LDL: pending. HbA1C: pending. LABS: (no lab data in past 24 hours) Assessment: Jorge is a 28 year old male recently diag nosed with MELAS at [facility] (discharged on 10/23) presenting with worsening cognition and increased agitation Stroke risk factors include MELAS. PE: s hows no new focal neurological deficits. (Unable to test the patient's hearing as he was very sedated). Brain CT shows subacute infarction involving bilatera l temporal regions with few bilateral s cattered hyperdensities, suggestive of hemorrhagic conversions. Small focal hypodensity in bilateral cerebellum without associated surrounding edema, favoring chronic infarction in nature. 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 MELAS B/L Hearing loss Possible seizures causing worsening cognition and agitation Acute Ischemic Stroke (non-tPA): - Hold Aspirin - Brain MRI/MRA - ECHO - NS at 75 cc/hr. - STAT EEG - Consider Starting Keppra- Hold Depakot e as it can cause mitochondrial dysfunction - [...] Code. 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 i have reviewed the resident 's note detailed above. I agree with the resident's findings, assessment and plan as outlined in the note except as detailed below. 10/26: newly diagnosed MELAS with worseni ng mental status; pt was not compliant with oral arginine. i beleive that his CT demonstrates slight progression of infarct in the right frontal parietal lobe. no HT, i suspect this is just salvaged cor natasha. AMS concerning for possible subclinical sz. will start IV arginine, treat empirically for seizure with keppra, check ammonia and eval for pancreatitis. shoul d get IVF with D10 and follow lactate le davida. patient's next of kin are his siblings. mom is and dad is not around- need to FU with social work. statin is not indicated as the mechanism of stroke is metabo lic. Medications (19) Active Scheduled Meds (4): 10/26/18 arginine (L-Arginine) 5,000 mg PO TID 10/26/18 sodium chloride (Saline Flush 0.9%) 10 ml IVP Q12H 10/26/18 sodium chloride (Saline Flush 0.9%) 10 ml IVP Q12H 10/26/18 ubiquinone 400 mg PO Daily Unscheduled Meds: None PRN Meds (4): 10/26/18 LORazepam (Ativan) 0.5 mg IVP Q6H 10/26/18 nystatin topical (nystatin topi johnna 100,000 units/g powder) 1 appl TOP PRN [...] + Sodium Chloride 0.9% IV 100 mL (Precedex 400 microgram in NS 100 mL (Titrate.) IV 400 microgram + Sodium Chloride 0.9% IV 100 mL) 400 microgram Titrate impression/Plan: THE FOLLOWING WERE PRESENT ON ADMISSION: In addition to above: The patient remains critically ill due t o MELAS at risk of deterioration. i spent a total of 35 minutes time at the bedside evaluating the patient, reviewing data and discussing the plan of care with e teams and updating the family on plan of care and prognosi s. Plan of Care No Data Provided for This Section Social History Social History Date Source Social History TypeResponse 11/30/2018 [facility] Smoking Status Unknown if ever smoked; Type: Cigarettes ; Previous treatment: None; Ready to change: No; Concerns about tobacco use in household: No; Exposure to Tobacco Smoke None; Cigarette Smoking Last 365 Days Unab le to obtain; Reg Smoking Cessation Counseling No entered on: 8/3/19 Family History No Data Provided for This Section Advance Directives No Data Provided for This Section Functional Status No Data Provided for This Section
--- OUTSIDE RECORDS SUMMARY | 2020-02-20 16:07 | XMS REPORT | Summary of Care ---
:1990 Author Organization [facility] Address [address] [place] [address] Care Team Providers Name Role Phone Pcp, Patient Does Not Have A Primary Care Provider +[id number] Encounter Details Date Type Department Care Team Description 02/03/2020 Orders Only [facility] Doctor Unassigned, No [address] [facility] [place] [address] [address] [phone] Allergies Active Allergy Reactions Severity Noted Date Comments Amoxicillin (Bulk) Anaphylaxis 10/18/2018 documented as of this encounter (statuses as of 02/04/2020) Medications Medication Sig Dispensed Refills Start Date [...] as of this encounter (statuses as of 02/04/2020) Active Problems Problem Noted Date Bilateral hearing loss 10/19/2018 documented as of this encounter (statuses as of 02/04/2020) Social History Tobacco Use Types Packs/Day Years Used Date Former Smoker Cigarettes Quit: 05/22/19 19 Smokeless Tobacco: Never Used Alcohol Use Drinks/Week oz/Week Comments Not Currently Sex Assigned at Date Recorded Not on file documented as of this encounter Last Filed Vital Signs Not on filedocumented in this encounter Plan of Treatment Date Type Specialty Care Team Description 02/04/2020 Office Visit Neurology Will Alva MD [address] [id number] [phone] Health Maintenance Due Date Last Done Comments VARICELLA VACCINES (1 of 2 - 1993 2-dose childhood series) Depression Screening 2004 DTaP,Tdap,and Td Vaccines (1 - 07/30/2011 Tdap) INFLUENZA VACCINE (#1) 2019 PNEUMOCOCCAL 0-64 YEARS COMBINED Aged Out No longer eligible based on SERIES patient's age to complete this topic documented as of this encounter Procedures Procedure Name Priority Date/Time Associated Diagnosis Comme nts MEDICATION CORRESPONDENCE Routine 02/03/2020 12:01 AM CDT documented in this encounter Results Not on filedocumented in this encounter Insurance Payer Benefit Plan / Subscriber ID Effective Phone Address T ype Group Dates [facility] MEDICAID OF [id number] 2018-02/02 [phone] [place] [address] HERNANDEZ HERNANDEZ [id number] 2020-Pre [address] Medica id HEALTHCARE - HEALTHCARE sent [id number] MANAGED MEDICAID [place], [place] documented as of this encounter Advance Directives Type Date Recorded 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
--- OUTSIDE RECORDS SUMMARY | 2020-02-20 16:07 | XMS REPORT | Continuity of Care Document ---
:1990 Author Organization [facility] t Address [address] [place] [address] Care Team Providers Name Role Phone Doctor Unassigned, [place] Attending Clinician Unavailable Aki ZACARIAS E Attending Clinician Bert Rowe Attending Clinician Abril Diaz Attending Clinician Ritika Attending Clinician Bert Rowe Admitting Clinician Yuliet Carr Admitting Clinician Abril Diaz Admitting Clinician Problems Condition Condition Condition Status Onset Resolution Last Treating Co mments Source Name Details Category Date Date Treatment Clinician Date SEIZURES Diagnosis Active 2019-09-20 M emoria 11-30 16:43:00 l SEIZURES 00:00: Reji n 00 Active 11/30/2018 [facility] STROKE Diagnosis Active 2018-11-16 Mem oria SYMPTOMS 11-16 23:36:00 l STROKE 00:00: [place] SYMPTOMS 00 Active 11/16/2018 [facility] MELAS Diagnosis Active 2019-09-20 Mem oria SYNDROME 11-16 16:42:00 l MELAS 00:00: [place] SYNDROME 00 Active 11/16/2018 [facility] STROKE Diagnosis Active 2019-03-24 Mem oria 10-28 16:17:00 l STROKE 00:00: [place] 00 Active 10/28/2018 [facility] AMS Diagnosis Active 2018-10-26 Mem oria 10-26 03:37:00 l AMS 00:00: [place] 00 Active 10/26/2018 [facility] MELAS, Diagnosis Active 2019-09-20 Mem oria LACTIC 10-26 16:40:00 l ACIDOSIS MELAS, 00:00: Reji n STRK-LIKE LACTIC 00 EPISO ACIDOSIS STRK-LIKE EPISO Active 10/26/2018 [facility] CEREBRAL Diagnosis Active 2019-09-20 M emoria INFARCTION 16:40:00 l , CEREBRAL Reji n UNSPECIFIE INFARCTION D , UNSPECIFIE D Active [facility] Allergies, Adverse Reactions, Alerts Allergy Allergy Status Severity Reaction(s) Onset Inactive Treating Comm ents Source Name Type Date Date Clinician amoxicil amoxicil Active Memori a ezequiel ezequiel l [place] Depakote Depakote Active Memori a <sup>1</ <sup>1</ l sup> sup> [place] Medications Ordered Filled Start Stop Current Ordering Indication Dosage Frequency Signature Comments Components Source Medication Medication Date Date Medication? Clinician (SIG) Name Name carBAMazepi Yes 300 mg = 3 Memoria ne 100 mg 8-04 tab, PO, l oral 15:51: Q12H, # [place] tablet, 00 360 tab, 3 chewable Refill(s) Occupationa Yes See Memori a l Therapy 04 Instructio l 11:48: ns, MISC, [place] 00 ONCALL, Evaluate and Treat 3 times per week for 4 weeks, # 1 unit, 0 Refill(s) Physical Yes See Memoria Therapy 12-01 Instructio l 11:48: ns, MISC, [place] 00 ONCALL, Evaluate and Treat 3 times per week for 4 weeks, # 1 unit, 0 Refill(s) carBAMazepi No 200 mg = 1 Memoria ne 200 mg 8-04 tab, PO, l oral tablet 11:48: Q12H, # Her cotto 00 180 tab, 3 Refill(s) carBAMazepi No 200 mg = 1 Memoria ne 200 mg 8-03 tab, PO, l oral tablet 16:28: Q12H, 3 Her cotto 00 Refill(s) Levetiracet No 500 mg, Mem oria am 11-30 Route: PO, l 16:00: Drug form: [place] 00 TAB, Q12H, Dosing Weight 38.56, kg, Start date: 11/30/18 11:00:00 CDT, Duration: 30 day, Stop date: 12/30/18 9:00:00 CDT Co-Q10 No Notes: Memoria 11-30 (Same As: l 14:00: Co-Enzyme Q10) L-Arginine No 4,000 mg, Me moria 11-30 Route: PO, l 14:00: Drug form: [place] 00 TAB, TID, Dosing Weight 38.56, kg, Start date: 11/30/18 9:00:00 CDT, Duration: 30 day, Stop date: 12/29/18 17:00:00 CDT Levocarniti No Notes: Andres cindy ne 11-30 (Same l 14:00: as:Carnito r) Carbamazepi No Notes: Andres cindy ne 11-30 With food. l 14:00: (Same As: Tegretol) heparin No Notes: Memoria 11-30 porcine l 13:00: heparin Melatonin No Notes: Memori a 11-30 (Same as: l 08:44: Melatonin) L-Arginine No Notes: Memor ia 7-25 Same as: l 18:00: L-arginine Co-Q10 200 Yes 800 mg, Andres cindy mg oral 7-25 PO, TID, # l capsule 17:11: 360 caplet, 0 Refill(s) levOCARNiti Yes 330 mg = 1 Memoria ne 330 mg 7-25 tab, PO, l oral tablet 17:11: TID, # 90 H ermann 00 tab, 0 Refill(s) L-Arginine Yes 4,000 mg, Me moria 1000 mg 7-25 PO, TID, # l oral tablet 17:11: 90 tab, 0 H ermann 00 Refill(s) lacosamide Yes 100 mg = 1 M emoria 100 mg oral 7-25 tab, PO, l tablet 16:25: Q12H, # 60 Trini nn 00 tab, 0 Refill(s) L-Arginine No Notes: Memor ia 11-21 Same as: l 03:50: L-arginine Vimpat No Notes: Memoria 11-20 Same as: l 14:00: Vimpat Vimpat No Notes: Memoria 11-17 Same as: l 22:00: Vimpat [place] 00 MEDICATION WASTE Product Size: 200 mg Product Wasted: ___ mg Carnitor No Notes: Memoria 11-17 (Same l 18:00: as:Carnito r) Vimpat No Notes: Memoria 11-17 Same as: l 15:39: Vimpat [place] 00 MEDICATION WASTE Product Size: 200 mg Product Wasted: ___ mg L-Arginine No Notes: Memor ia 11-17 Same as: l 14:00: L-arginine ubiquinone No 800 mg, 4 Me moria 11-17 cap, l 14:00: Route: PO, Drug form: CAP, TID, Dosing Weight 50, kg, Start date: 11/17/18 9:00:00 CDT, Stop date: 12/16/18 9:00:00 CDT, 0 Saline No Notes: Memoria Flush 0.9% 11-17 (Same as: l 14:00: BD Posiflush) olanzapine No Notes: Memor ia 11-17 (Same as: l 14:00: ZyPREXA) Vimpat No Notes: Memoria 11-17 Same as: l 14:00: Vimpat R-Gene 10 4 No Notes: Andres cindy gm + empty 11-17 (Same as: l container 1 14:00: R-Gene 10) [place] Docusate No Notes: Memoria 11-17 (Same as: l 14:00: Colace) (Do Not Crush) sennosides, No Notes: Andres cindy ALF 11-17 (Same as: l 14:00: Senokot) olanzapine 2018-0 No Notes: Memor ia 11-17 (Same as: l 13:22: ZyPREXA) L-Arginine No 5,000 mg, Me moria 11-17 Route: IV, l 13:19: TID, Dosing Weight 50, kg, Priority: NOW, Start date: 11/17/18 8:19:00 CDT, Duration: 30 day, Stop date: 12/16/18 17:00:00 CDT heparin 2018-0 No Notes: Memoria 11-17 porcine l 13:00: heparin D5W 1,000 No 1,000 mL, Mem oria mL 11-17 Rate: 100 l 12:19: ml/hr, Infuse over: 10 hr, Route: IV, Dosing Weight 50 kg, Total Volume: 1,000, Start date: 11/17/18 7:19:00 CDT, Duration: 30 day, Stop date: 12/17/18 7:18:00 CDT, 1.52, m2, 0 Vimpat No Notes: Memoria 11-17 Same as: l 10:35: Vimpat MEDICATION WASTE Product Size: 200 mg Product Wasted: ___ mg Docusate No 100 mg, Memori a 11-17 Route: PO, l 09:48: ONCE, Dosing Weight 50, kg, Start date: 11/17/18 4:48:00 CDT, Stop date: 11/17/18 4:48:00 CDT L-Arginine Yes 5,000 mg, Me moria -21 PO, TID, 0 l 07:36: Refill(s) lacosamide No 50 mg = 1 Me moria 50 MG Oral - tab, PO, l Tablet 07:36: BID, # 30 Reji n [Vimpat] 00 day, 0 Refill(s) CoQ10 0 No 200 mg, Memoria -21 PO, Daily, l 07:36: 0 Refill(s) olanzapine No 5 mg, PO, Me moria 7-21 Q12H, # 20 l 07:36: tab, 0 [place] 00 Refill(s) Saline No Notes: Memoria Flush 0.9% 11-17 (Same as: l 05:33: BD Posiflush) iodixanol No 100 mL, Memor ia 11-17 Route: l 03:35: IVP, Drug Form: SOLN, Dosing Weight 61.364, kg, ONCALL, STAT, Start date: 11/16/18 22:35:00 CDT, Duration: 1 doses or times, Dose = 2.2ml/kg, Max dose = 100ml -- "To be infused by Radiology Staff ONLY" Saline No Notes: Memoria Flush 0.9% - (Same as: l 03:19: BD Posiflush) lacosamide Yes 50 mg = 1 Me moria 50 mg oral 7-09 tab, PO, l tablet 22:30: BID, # 120 Trini nn 00 tab, 2 Refill(s) olanzapine Yes 5 mg = 1 Mem oria 5 MG Oral 7-09 tab, PO, l Tablet 22:15: PRN, PRN [place] 42 Other -See Comment, PRN Q12, # 60 tab, 0 Refill(s) ubiquinone Yes 400 mg = 2 M emoria 200 mg oral 7- cap, PO, l capsule 20:46: Daily, # Reji n 00 120 cap, 0 Refill(s) melatonin 3 Yes 6 mg = 2 Me moria mg oral 7-09 tab, PO, l tablet 19:48: Bedtime, [place] 00 PRN Sleep, # 60 tab, 0 Refill(s) lacosamide No 50 mg = 1 Me moria 50 mg oral 7-09 tab, PO, l tablet 19:48: BID, # 7 [place] 00 tab, 0 Refill(s) olanzapine No 5 mg = 1 Mem oria 5 MG Oral 7-09 tab, PO, l Tablet 19:48: PRN, PRN [place] 00 Other -See Comment, # 60 tab, 0 Refill(s) arginine Yes 5,000 mg = Mem oria 500 mg oral 7-09 10 cap, l capsule 19:48: PO, TID, # Herm maria e 00 1800 cap, 0 Refill(s) D10W 980.75 2019-0 No 980.75 mL, Memoria mL + sodium 11-05 Rate: 100 l chloride 01:55: ml/hr, [place] 23.4% IV 77 00 Infuse mEq over: 10 hr, Route: IV, Dosing Weight 50 kg, Total Volume: 1,000, Priority: Routine, Start date: 11/04/18 20:55:00 CDT, Duration: 30 day, Stop date: 12/04/18 20:54:00 CDT, 1.55, m2, 0 magnesium 2019-0 No Notes: Memori a sulfate 11-03 WASTE: F/P l 17:44: - Sink; E - Municipal Trash Bin Potassium 2018-0 No 40 mEq, 2 Mem oria Chloride 11-03 tab, l 17:40: Route: PO, Drug form: ERTAB, ONCE, Dosing Weight 50, kg, Priority: NOW, Start date: 11/03/18 12:40:00 CDT, Stop date: 11/03/18 12:40:00 CDT, 0 arginine 2019-0 No Notes: Memoria 11-03 (Same as: l 15:45: Arginine) potassium 2019-0 No 20 mEq, Memor ia chloride 11-03 100 mL, l 13:30: Route: IVPB, Drug form: INJ, Q2H, Start date: 11/03/18 8:30:00 CDT, Duration: 3 doses or times, Stop date: 11/03/18 12:00:00 CDT, 0 Potassium 2019-0 No 10 mEq, Memor ia Chloride 11-03 Route: l 12:22: IVPB, Q1H, Dosing Weight 50, kg, Total Dose = 60 meq, Start date: 11/03/18 7:22:00 CDT, Duration: 6 doses or times, Stop date: 11/03/18 12:22:00 CDT, Periphe ral Line Magnesium 2019-0 No Notes: Memori a Sulfate 11-03 WASTE: F/P l 12:21: - Sink; E - Municipal Trash Bin magnesium 2019-0 No Notes: Memori a sulfate 7- WASTE: F/P l 19:00: - Sink; E - Municipal Trash Bin Magnesium No Notes: Memori a Sulfate 7-06 WASTE: F/P l 11:29: - Sink; E - Municipal Trash Bin Potassium No Notes: Memori a Chloride 7-06 (Same as: l 11:00: KCL) Infuse over 2 hours. potassium No Notes: Memori a chloride 7-05 (Same as: l 14:00: Potassium Chloride) Marinol No Notes: Memoria 7-04 (Same as: l 22:00: Marinol) Magnesium No Notes: Memori a Sulfate 7-04 WASTE: F/P l 17:16: - Sink; E - Municipal Trash Bin Potassium No 20 mEq, Memor ia Chloride 7-04 100 mL, l 13:00: Route: IVPB, Drug form: INJ, Q2H, Dosing Weight 50, kg, Total dose = 40 mEq, Start date: 10/31/18 8:00:00 CDT, Duration: 2 doses or times, Stop date: 10/31/18 10:00:00 CDT, Central Line, 0 Potassium No 10 mEq, Memor ia Chloride 10-31 Route: l 12:00: IVPB, Q1H, Dosing Weight 50, kg, Total Dose = 40 meq, Start date: 10/31/18 7:00:00 CDT, Duration: 4 doses or times, Stop date: 10/31/18 10:00:00 CDT, Periphe ral Line Melatonin No Notes: Memori a 7-04 (Same as: l 07:45: Melatonin) Phenergan No Notes: Do Mem oria 7-04 not give l 03:30: IV push. (Same as: Phenergan) Vancomycin No 2001 mg: Me moria 7- infuse l 01:00: over 2.5 hours For adult patients only: Round to nearest 250 mg per Medical Staff approval MEDICATION WASTE Product Size: 1000 mg Product Wasted: ___ mg potassium No Notes: Memori a chloride 10-30 (Same as: l 17:00: KCL) Infuse no faster than 10 mEq/hr if given peripheral ly. olanzapine No Notes: Memor ia 10-30 (Same As: l 16:56: ZyPREXA IM). Reconstitu te with 2.1 ml sterile water for injection; use within 1 hour after reconstitu tion. For IM use only; do not administer IV or SUB-Q. Potassium No 10 mEq, Memor ia Chloride 10-30 Route: l 16:00: IVPB, Q1H, Dosing Weight 50, kg, Total Dose = 40 meq, Start date: 10/30/18 11:00:00 CDT, Duration: 4 doses or times, Stop date: 10/30/18 14:00:00 CDT, Periphe ral Line Vimpat No Notes: Memoria 10-30 Same as: l 14:00: Vimpat Potassium No Notes: Memori a Chloride 10-30 (Same as: l 1.33 MEQ/ML 14:00: Potassium H erm Chloride) Solution Vancomycin No 2001 mg: Me moria 10-30 infuse l 13:59: over 2.5 hours For adult patients only: Round to nearest 250 mg per Medical Staff approval MEDICATION WASTE Product Size: 1000 mg Product Wasted: ___ mg cefepime No Notes: Memoria 10-30 (Same As: l 13:00: Maxipime) MEDICATION WASTE Product Size: 1000 mg Product Wasted: ___ mg Tylenol No Notes: Max Andres cindy 10-30 acetaminop l 11:51: hen = 4000mg/day (4 gm/day). (Same as: Tylenol) L-Arginine No Notes: Memor ia 10-30 (Same as: l 09:45: Arginine) Potassium No Notes: Memori a Chloride 10-30 (Same as: l 09:41: KCL) [place] 00 Infuse over 2 hours. NS (Bolus) No 500 mL, Andres cindy IV 10-30 500 ml/hr, l 05:46: Infuse [place] 00 Over: 1 hr, Route: IV, 500, Drug form: INJ, ONCE, Priority: STAT, Dosing Weight 50 kg, Start date: 10/30/18 0:46:00 CDT, Stop date: 10/30/18 0:46:00 CDT, 0 Zyprexa No Notes: Memoria 10-30 (Same as: l 00:18: ZyPREXA) [place] 00 NS (Bolus) No 500 mL, Andres cindy IV 10-29 500 ml/hr, l 08:57: Infuse [place] 00 Over: 1 hr, Route: IV, 500, Drug form: INJ, ONCE, Priority: STAT, Dosing Weight 50 kg, Start date: 10/29/18 3:57:00 CDT, Stop date: 10/29/18 3:57:00 CDT, 0 Potassium No Notes: Memori a Chloride 10-29 (Same as: l 07:00: KCL) [place] 00 Infuse over 2 hours. D10W 980.75 No 980.75 mL, Memoria mL + sodium 10-28 Rate: 200 l chloride 23:03: ml/hr, [place] 23.4% IV 77 00 Infuse mEq over: 5 hr, Route: IV, Dosing Weight 50 kg, Total Volume: 1,000, Priority: Routine, Start date: 10/28/18 18:03:00 CDT, Duration: 30 day, Stop date: 11/27/18 18:02:00 CDT, 1.55, m2, 0 sterile No 2.1 mL, Memoria water 10-28 Route: l 19:54: MISC, Drug Form: INJ, Q4H, PRN Other -See Comment, Start date: 10/28/18 14:54:00 CDT, Stop date: 11/27/18 14:53:00 CDT, 0 Geodon No Notes: Memoria 10-28 Reconstitu l 19:48: te with [place] 00 1.2 ml of sterile water. Final concentrat ion = 20 mg/1ml. Maximum 40 mg/24 hours (Same As: Hiren). MEDICATION WASTE Product Size: 20 mg Product Wasted: _0__ mg Acyclovir No Notes: Memori a 10-28 (Same as: l 19:01: Zovirax) [place] 00 For adult patients only: Round to nearest 50 mg per Medical Staff approval MEDICATION WASTE Product Size: 500 mg Product Wasted: _0__ mg atorvastati No 80 mg, Andres cindy n 10-27 Route: PO, l 02:00: Drug form: [place] 00 TAB, Bedtime, kg, Start date: 10/26/18 21:00:00 CDT, Duration: 30 day, Stop date: 11/24/18 21:00:00 CDT Levocarniti No 2,270 mg, M emoria ne 10-27 Route: PO, l 02:00: Q12H, Dosing Weight 45.455, kg, Start date: 10/26/18 21:00:00 CDT, Duration: 30 day, Stop date: 11/25/18 9:00:00 CDT Geodon No Notes: Memoria - Reconstitu l 23:27: te with 1.2 ml of sterile water. Final concentrat ion = 20 mg/1ml. Maximum 40 mg/24 hours (Same As: Hiren). MEDICATION WASTE Product Size: 20 mg Product Wasted: 0mg Keppra No Notes: Memoria 6-29 Same as l 23:00: Keppra [place] 00 Mix with 100 mL NS, LR or D5W MEDICATION WASTE Product Size: 500 mg Product Wasted: ___ mg R-Gene 10 4 No Notes: Andres cindy gm + empty 10-26 (Same as: l container 1 20:00: R-Gene 10) [place] ea 00 D10W 980.75 No 980.75 mL, Memoria mL + sodium -29 Rate: 150 l chloride 17:44: ml/hr, [place] 23.4% IV 77 00 Infuse mEq over: 6.7 hr, Route: IV, Dosing Weight 50 kg, Total Volume: 1,000, Priority: Routine, Start date: 10/26/18 12:44:00 CDT, Duration: 30 day, Stop date: 11/25/18 12:44:00 CDT, 1.55, m2, 0 arginine 2019-0 No 50 mL, Memoria 10% 10-26 Rate: 9.09 l additive 17:44: ml/hr, [place] 5,000 mg 00 Infuse [20 over: 5.5 mg/kg/hr] + hr, Route: Drug Only IV, Dosing 50 mL Weight 45.455 kg, Total Volume: 50 mL, Start date: 10/26/18 12:44:00 CDT, Duration: 30 day, Stop date: 11/25/18 12:43:00 CDT, 1.46, m2 ubiquinone 2018-0 No Notes: Memor ia - (Same As: l 14:00: Co-Enzyme Q10) Saline 2018-0 No Notes: Memoria Flush 0.9% 10-26 (Same as: l 14:00: BD Posiflush) L-Arginine 2018-0 No 5,000 mg, Me moria 10-26 Route: PO, l 14:00: TID, kg, Start date: 10/26/18 9:00:00 CDT, Duration: 30 day, Stop date: 11/24/18 17:00:00 CDT Phenergan 2018-0 No 25 mg, Memori a - Route: l 13:58: IVPB, [place] 00 ONCE, kg, Start date: 10/26/18 8:58:00 CDT, Stop date: 10/26/18 8:58:00 CDT Dexmedetomi 2019-0 No 400 Memori a dine 6-29 microgram, l 12:54: Rate: [place] 00 Titrate, Start Dose: 0.2 microgram/ kg/hr, Titration: 0.1 microgram/ kg/hr every 30 min, Goal(s): RASS 0, Max Dose: 1.5 microgram/ kg/hr, Route: IV, Dosing Weight 45.455 kg, Total Volume: 100, Start date: 10/26/18 7:54:00 CDT, Durati... Saline No Notes: Memoria Flush 0.9% - (Same as: l 12:45: BD [place] Posiflush) Nystatin No Notes: Memoria 100 UNT/MG - (Same l Topical 12:45: as:Mycosta Herm maria e Powder 00 tin, Nilstat) For external use only. Ativan No Notes: Memoria 6-29 (Same as: l 11:19: Ativan) [place] Haldol No Notes: Memoria 6-29 (Same as: l 11:11: Haldol) [place] 00 Versed No 5 mg, Memoria 6- Route: l 10:45: IVP, ONCE, [place] kg, Start date: 10/26/18 5:45:00 CDT, Stop date: 10/26/18 5:45:00 CDT Ativan No 2 mg, Memoria 6 Route: l 10:42: IVP, Drug [place] 00 form: INJ, Q6H, kg, PRN Anxiety, Start date: 10/26/18 5:42:00 CDT, Duration: 30 day, Stop date: 11/25/18 5:41:00 CDT Ativan No 2 mg, Memoria 10-26 Route: PO, l 10:41: Drug form: [place] TAB, TID, kg, PRN Anxiety, Start date: 10/26/18 5:41:00 CDT, Duration: 30 day, Stop date: 11/25/18 5:40:00 CDT Saline No Notes: Memoria Flush 0.9% 10-26 (Same as: l 10:23: BD [place] Posiflush) Haldol No 2.5 mg, Memoria 6- Route: IM, l 09:21: ONCE, kg, [place] 00 Start date: 10/26/18 4:21:00 CDT, Stop date: 10/26/18 4:21:00 CDT Haldol No 5 mg, Memoria 6 Route: IM, l 09:20: ONCE, kg, [place] Priority: STAT, Start date: 10/26/18 4:20:00 CDT, Stop date: 10/26/18 4:20:00 CDT Versed 2018-0 No 3 mg, Memoria 10-26 Route: IM, l 09:20: ONCE, kg, [place] 00 Start date: 10/26/18 4:20:00 CDT, Stop date: 10/26/18 4:20:00 CDT Versed 2018-0 No 3 mg, Memoria 10-26 Route: l 09:18: IVP, ONCE, [place] 00 kg, Priority: STAT, Start date: 10/26/18 4:18:00 CDT, Stop date: 10/26/18 4:18:00 CDT Ketamine 2019-0 No Notes: Memoria 10-26 (Same as: l 07:07: keTALAR) [place] 00 Vital Signs Vital Name Observation Time Observation Value Comments Source Respitory Rate 2018-12-01 17:30:00 Memori al [place] Systolic (mm Hg) 2018-12-01 17:30:00 Andres rial [place] Diastolic (mm Hg) 2018-12-01 17:30:00 Mem orial [place] Temperature Oral (F) 2018-12-01 17:30:00 97.7 F [facility] [place] Heart Rate 2018-12-01 17:30:00 [facility] [place] Heart Rate 2018-12-01 13:14:00 [facility] [place] Temperature Oral (F) 2018-12-01 13:14:00 98.2 F [facility] [place] Systolic (mm Hg) 2018-12-01 13:14:00 Andres rial [place] Diastolic (mm Hg) 2018-12-01 13:14:00 Mem orial [place] Respitory Rate 2018-12-01 13:14:00 Memori al [place] Heart Rate 2018-12-01 06:00:00 [facility] [place] Respitory Rate 2018-12-01 06:00:00 Memori al [place] Systolic (mm Hg) 2018-12-01 06:00:00 Andres rial [place] Diastolic (mm Hg) 2018-12-01 06:00:00 Mem orial [place] Temperature Oral (F) 2018-12-01 06:00:00 97.2 F [facility] [place] Height 2018-11-30 07:44:00 165.1 cm [facility] [place] Weight 2018-11-30 07:44:00 [facility] [place] BMI Calculated 2018-11-30 07:44:00 Memori al [place] Temperature Oral (F) 2018-11-23 00:48:00 97.9 F [facility] [place] Heart Rate 2018-11-23 00:48:00 [facility] [place] Respitory Rate 2018-11-23 00:48:00 Memori al [place] Systolic (mm Hg) 2018-11-23 00:48:00 Andres rial [place] Diastolic (mm Hg) 2018-11-23 00:48:00 Mem orial [place] Heart Rate 2018-11-22 20:18:00 [facility] [place] Respitory Rate 2018-11-22 20:18:00 Memori al [place] Systolic (mm Hg) 2018-11-22 20:18:00 Andres rial [place] Diastolic (mm Hg) 2018-11-22 20:18:00 Mem orial [place] Temperature Oral (F) 2018-11-22 20:18:00 98.1 F [facility] [place] Temperature Oral (F) 2018-11-22 16:20:00 97.8 F [facility] [place] Systolic (mm Hg) 2018-11-22 16:20:00 Andres rial [place] Diastolic (mm Hg) 2018-11-22 16:20:00 Mem orial [place] Heart Rate 2018-11-22 16:20:00 [facility] [place] Respitory Rate 2018-11-22 16:20:00 Memori al [place] Weight 2018-11-20 17:58:00 [facility] [place] BMI Calculated 2018-11-20 17:58:00 Memori al [place] Height 2018-11-20 17:58:00 165.1 cm [facility] [place] Height 2018-11-17 07:24:00 165.1 cm [facility] [place] Weight 2018-11-17 07:24:00 [facility] [place] BMI Calculated 2018-11-17 07:24:00 Memori al [place] Weight 2018-11-17 03:15:00 [facility] [place] BMI Calculated 2018-11-17 03:15:00 Memori al [place] Height 2018-11-17 03:15:00 165.1 cm [facility] [place] Systolic (mm Hg) 2018-11-05 20:41:00 Andres rial [place] Diastolic (mm Hg) 2018-11-05 20:41:00 Mem orial [place] Respitory Rate 2018-11-05 20:41:00 Memori al [place] Heart Rate 2018-11-05 20:41:00 [facility] [place] Temperature Oral (F) 2018-11-05 20:41:00 98.6 F [facility] [place] Heart Rate 2018-11-05 16:53:00 [facility] [place] Temperature Oral (F) 2018-11-05 16:44:00 98.9 F [facility] [place] Heart Rate 2018-11-05 16:44:00 [facility] [place] Respitory Rate 2018-11-05 16:44:00 Memori al [place] Systolic (mm Hg) 2018-11-05 16:44:00 Andres rial [place] Diastolic (mm Hg) 2018-11-05 16:44:00 Mem orial [place] Temperature Oral (F) 2018-11-05 13:03:00 98.8 F [facility] [place] Respitory Rate 2018-11-05 13:03:00 Memori al [place] Systolic (mm Hg) 2018-11-05 13:03:00 Andres rial [place] Diastolic (mm Hg) 2018-11-05 13:03:00 Mem orial [place] Height 2018-10-30 12:04:00 172.72 cm [facility] [place] Weight 2018-10-30 12:04:00 [facility] [place] Weight 2018-10-27 01:35:00 [facility] [place] BMI Calculated 2018-10-27 01:35:00 Memori al [place] Height 2018-10-27 01:35:00 172.72 cm [facility] [place] Weight 2018-10-26 13:00:00 [facility] [place] BMI Calculated 2018-10-26 13:00:00 Memori al [place] Height 2018-10-26 13:00:00 167.64 cm [facility] [place] Procedures This patient has no known procedures. Encounters Start End Encounter Admission Attending Care Care Encounter Source Date/Time Date/Time Type Type Clinicians Facility Department ID 2018-11-30 Inpatient U [facility] [id number] [facility] 02:23:00 2018-11-[address] [facility] [id number] [facility] 22:55:57 2020-02-03 2020-02-03 Orders Doctor ZHONG [id number] 00:00:00 00:00:00 Only Unassigned, MARS [id number] [facility] [id number] 2019-12-19 2019-12-19 Orders Doctor TREVIN [id number] 00:00:00 00:00:00 Only Unassigned, MARS [id number] [facility] [id number] 2019-01-17 2019-01-17 Patient Lisha Prabhakar [id number] 00:00:00 00:00:00 Outreach E [place] [id number] [place] [id number] 2018-12-19 2018-12-19 Patient Lisha Prabhakar [id number] 00:00:00 00:00:00 Outreach E [place] [id number] [place] [id number] 2018-11-30 2018-12-01 Outpatient Jae [facility] [id number] 02:23:00 15:17:00 Rolly Ali 15 2018-11-16 2018-11-22 Outpatient Joe [facility] [id number] 22:08:00 21:05:00 Marcela 00 Abril 2018-11-17 2018-11-16 [id number] 00:33:00 22:08:00 2018-10-26 2018-11-05 Outpatient Ritika [facility] [id number] 00:57:22 19:45:00 Amrou 00 2018-10-26 2018-10-26 Inpatient [facility] 05:23:00 00:57:00 Results Test Description Test Time Test Comments Results Result Comments Source CHEM PANEL 2018-11-30 2.0 [facility] 16:03:00 CARDIAC ENZYMES 2018-11-30 82 [facility] 10:22:00 CHEM PANEL 2018-11-30 0.3 [facility] 10:22:00 CHEM PANEL 2018-11-30 25 [facility] 10:22:00 CHEM PANEL 2018-11-30 106 [facility] 10:22:00 CHEM PANEL 2018-11-30 8.2 [facility] 10:22:00 CHEM PANEL 2018-11-30 3.4 [facility] 10:22:00 CHEM PANEL 2018-11-30 6.7 [facility] 10:22:00 CHEM PANEL 2018-11-30 19 [facility] 10:22:00 CHEM PANEL 2018-11-30 19 [facility] 10:22:00 CHEM PANEL 2018-11-30 72 [facility] 10:22:00 CHEM PANEL 2018-11-30 139 [facility] 10:22:00 CHEM PANEL 2018-11-30 87 [facility] 10:22:00 CHEM PANEL 2018-11-30 3.5 [facility] 10:22:00 CHEM PANEL 2018-11-30 10 [facility] 10:22:00 CHEM PANEL 2018-11-30 0.60 [facility] 10:22:00 CHEM PANEL 2018-11-30 141 [facility] 10:22:00 CHEM PANEL 2018-11-30 13.5 [facility] 10:22:00 CHEM PANEL 2018-11-30 10:22:00 Test Item Value Reference Range Interpretation Comme nts A/G Ratio (test code = A/G Ratio) 1.0 1 0.7-1.6 [id number]:003.3[facility] 2018-11-30 10:22:00 Test Item Value Reference Range Interpretation Comments B/C Ratio (test code = B/C Ratio) 17 1 6-25 [facility] FtgksstTYNHATLQFW0618-31-06 10:22:000.3[facility] 2018-11-30 10:22:006.9[facility] HmvuzyoRYWIHYRIBN8578-38-39 10:22:0052.8[facility] RojqfotEPIHCLPYWR4014-19-78 10:22:0036.3[facility] AgmqtheRYBZRXJDVF9510-12-55 10:22:002.9[facility] XrdcvabJXRURDHDMI8113-52-96 10:22:004.2[facility] IXEJRKOYCN1284-20-60 10:22:000.5[facility] VwknkhzNNTTEPYYHJ8668-56-47 10:22:003.5 [facility] PwfayfwLZFRUVRMCL6432-77-27 10:22:000.5[facility] 2018-11-30 10:22:0035.6[facility] LaonkggGERBORDZWG6187-81-56 10:22:0034.4[facility] UiiwolwILPDPDDSKC1728-55-08 10:22:0012.2[facility] IafddioGJQDNWYDZJ1449-56-46 10:22:0087.1[facility] TpgsudbOHIXHNLUDO9473-25-64 10:22:00 Test Item Value Reference Range Interpretation Comments MCH (test code = MCH) 31.0 pg 27.0-31.0 [facility] WxdvkhgYGOBCNLURU5408-69-40 10:22:64478Fcttealz HermannHEMATOLOGY 2018-11-30 10:22:008.7[facility] RkdojdaHQEUVLFSIT1145-86-42 10:22:0013.9[facility] DvtahqnOJKBNOGQXW2680-41-16 10:22:007.9[facility] BtoueuaZIQRSUGXYA5502-77-31 10:22:003.95[facility] HermannCHEM AMIVB5577-81-28 02:16:001.7[facility] HermannCHEM WZFET7516-75-55 21:13:002.2[facility] HermannCHEM YXWHJ9138-59-41 17:48:002.4 [facility] AND YUNJC3522-12-28 14:16:00Negative (11/18/18 9:16 AM) [facility] ZUQBD8031-70-90 14:16:00Negative (11/18/18 9:16 AM) [facility] DXHHL3032-34-34 14:16:001[facility] DJMSA3464-63-03 14:16:00Negative *NA*(11/18/18 9:16 AM)[facility] BVCQQ6735-66-52 14:16:00Negative (11/18/18 9:16 AM)[facility] DBNUD4448-51-28 14:16:00<1.0[facility] FOELV3184-90-68 14:16:00Light Yellow *NA*(11/18/18 9:16 AM)[facility] STOOL 2018-11-18 14:16:00Clear (11/18/18 9:16 AM)[facility] ST[facility]OL 2018-11-18 14:16:00 Test Item Value Reference Range Interpretation Comments UA Spec Grav (test code = UA Spec 1.005 1 Grav) [facility] NTWSG9462-38-54 14:16:00 Test Item Value Reference Range Interpretation Comments UA pH (test code = UA pH) 6.0 1 5.0-8.0 [facility]annCHEM FVNJW7996-11-88 08:58:004.7[facility] HermannCHEM PANEL 2018-11-18 08:58:001.9[facility] SpixtjqMQRWKPYMKVTM8086-79-04 08:58:0013.5 [facility] OkgqckxCONFNAITUAPO2701-27-61 08:58:13248Nrawakny HermannELECTROLYTES 2018-11-18 08:58:50720Vxjkthau SlmgrgxDSDKNQVIWVFG7633-08-16 08:58:0012[facility] GvnkiadLLVIIKJPLJCH8950-35-22 08:58:0023[facility] WwxeqqvPBIECNZIPEUN7120-38-31 08:58:003.5[facility] JesktmnMCURUELFJKFO5523-97-37 08:58:90356Vbgzqlxh [place] HKGSAEIQVTKK8939-61-69 08:58:000.67[facility] CjfefzcHTTOJRBLKEPK4492-99-49 08:58:65136Zjetybko KedwvkgBMOLPFDVPFYS3498-48-43 08:58:009.1[facility] [place] UPOVUCLKLE0570-49-25 08:58:003.5[facility] AkpnfvyDFPEMCOGNR2332-23-60 08:58:007.7 [facility] UrnbexwTCYRUABKQA9547-97-78 08:58:0032.4[facility] HermannHEMATOLOGY 2018-11-18 08:58:002.8[facility] DwuzoldBMZCRYACKN1516-83-03 08:58:004.8[facility] VscdoitIQVFQECVSK3371-83-85 08:58:000.7[facility] UigdmxcUDAVEKWSFY2467-23-53 08:58:000.1[facility] GyrhweeKQARYNVIVE9402-62-84 08:58:000.3[facility] GGKGPMRSVQ0859-74-88 08:58:000.7[facility] ZkhkgisQPHNMRZDZP7998-85-59 08:58:00 55.7[facility] KjbkdznFPAZALDQBQ8196-38-07 08:58:009.4[facility] HermannHEMATOLOGY 2018-11-18 08:58:39908Rlvbadln CedxfftEXWRJQGPVC2347-95-57 08:58:0013.3[facility] SkhmyvrSMEGCRTRBO4283-70-98 08:58:0013.1[facility] HmbzpyoSIUWMUIBHZ2659-79-34 08:58:004.24[facility] HhvbuioXGEDUSDNTK4712-40-83 08:58:008.7[facility] [place] XOHMDVZBAT0006-60-04 08:58:0035.2[facility] OqlyjyaWFBDBXNVSR7274-11-23 08:58:00 Test Item Value Reference Range Interpretation Comments MCH (test code = MCH) 30.8 pg 27.0-31.0 [facility] MxnuiroFZIKLOZIJS9672-27-18 08:58:0087.6[facility] HermannHEMATOLOGY 2018-11-18 08:58:0037.1[facility] HermannCHEM HIKCS2873-64-85 06:25:0072[facility]annCHEM PTFFE8458-27-76 06:25:89829Nvaghvtu HermannCHEM KJSUJ9171-27-30 06:25:00 Test Item Value Reference Range Interpretation Comments A/G Ratio (test code = A/G Ratio) 1.0 1 0.7-1.6 [facility]annCHEM XNZJJ7913-45-94 06:25:004.0[facility] HermannCHEM PANEL 2018-11-17 06:25:000.4[facility] HermannCHEM LTGTB7005-74-33 06:25:000.1[facility] HermannCHEM GPHDF3165-59-93 06:25:000.5[facility] HermannCHEM DTQXY5067-61-92 06:25:0026[facility]annCHEM KXGGL6309-59-46 06:25:0094[facility]annCHEM TTZQN5679-03-65 06:25:0028[facility]annCHEM IWBRK3487-89-90 06:25:003.9 [facility]annCHEM NUQGO7692-15-09 06:25:007.9[facility] HermannCHEM PANEL 2018-11-17 06:25:0011.0[facility] HermannCARDIAC ZHCKWJT7053-48-74 04:26:000.09 [facility] HermannCARDIAC POFSUZU1688-15-55 04:26:0085[facility] HermannCHEM PANEL 2018-11-17 04:26:09387Hlytlgfc HermannCHEM BJNTY9664-36-87 04:26:0026[facility] HermannCHEM TCBIL0507-47-02 04:26:78852Sbtcyhpq HermannCHEM RGBFQ4351-99-82 04:26:0016.5[facility] HermannCHEM ZWMVO5807-58-97 04:26:009.2[facility] HermannCHEM CDSQV4035-73-61 04:26:71407Ghpddzwm HermannCHEM AOUEC0740-93-51 04:26:000.75 [facility]annCHEM MZSTD4387-07-20 04:26:003.5[facility] HermannCHEM PANEL 2018-11-17 04:26:0015[facility] HermannCHEM LEEFQ1434-71-92 04:26:0099[facility] WscrrhdHYXJPBVQAW6609-40-52 03:29:00 Test Item Value Reference Range Interpretation Comments INR (test code = INR) 1.06 1 0.85-1.17 [facility] EwoajikDUZNOPENVM0043-14-33 03:29:00 Test Item Value Reference Range Interpretation Comments PT (test code = PT) 13.6 s 12.0-14.7 [facility] ZklksnmSHVOSUGXPK5467-28-51 03:29:0010.1[facility] HermannHEMATOLOGY 2018-11-17 03:29:0012.9[facility] UfuqlqkADBQLFWFDC7794-21-90 03:29:00 Test Item Value Reference Range Interpretation Comments MCH (test code = MCH) 30.1 pg 27.0-31.0 [facility] IkninynKWQZSSDGTR1238-22-14 03:29:0034.5[facility] HermannHEMATOLOGY 2018-11-17 03:29:0037.3[facility] JpltqlnASURWSESAI1217-48-37 03:29:0087.3[facility] ZchqjpdCRGHVBDCYZ0428-88-23 03:29:004.28[facility] UluceyaOQCTAXOUTM7752-50-70 03:29:0013.8[facility] RbslfzrCTQCOWYMPX5569-32-13 03:29:34464Xnjhvrkp [place] UWYGREPGSA5456-38-93 03:29:009.1[facility] DldzbzsZGGLDKLNFK9020-17-05 03:29:00 Test Item Value Reference Range Interpretation Comments PTT (test code = PTT) 32.3 s 22.9-35.8 [facility] EzcxngsGCOPQIZNAN9502-19-22 03:29:0060.4[facility] HermannHEMATOLOGY 2018-11-17 03:29:000.8[facility] YaxotsfLVVDNUYXQO2419-49-01 03:29:002.7[facility] JhoaimxFJVLKPRICJ2140-11-36 03:29:0029.3[facility] SgfwiigDTPUNMRNRI8962-10-24 03:29:006.8[facility] VacqxovORYQGVAURU5291-14-17 03:29:003.0[facility] OEIXAPRUMY0255-53-59 03:29:000.7[facility] HoyxwqbTKXNDOSZKI6634-80-36 03:29:006.1 [facility] WgcugugERKVTXAHUV6184-58-36 03:29:000.1[facility] HermannHEMATOLOGY 2018-11-17 03:29:000.3[facility] BpzeoibYKVKMGTCWM1026-54-10 14:21:000.6[facility] FkhoipdJNSFQXZVTX5064-96-10 14:21:003.0[facility] DbdmigpEMGVCLUIPR7436-95-35 14:21:006.5[facility] QnegfpbKNIDZMASZB6394-14-66 14:21:0028.9[facility] FBCFJSMJEA9872-76-09 14:21:000.7[facility] OmectebVHCPMHADMG0575-12-77 14:21:003.0 [facility] WifshoiVRSRIXIHIO1349-99-23 14:21:006.4[facility] HermannHEMATOLOGY 2018-11-04 14:21:000.1[facility] ZlxfsdeMTUWVOZEVM2453-93-38 14:21:000.3[facility] TjgzuagCVUDTMCXIQ0622-92-45 14:21:0061.0[facility] MpwxksyGSYPDAWRMH4846-12-50 14:21:004.13[facility] EahbkteUPPTGTXURP8318-27-39 14:21:0010.4[facility] [place] TQGLJTSNKO6545-71-23 14:21:0035.0[facility] LobljejFSGJMFLDSJ6548-33-70 14:21:00 218[facility] NhhonclGNOMPVMDGW7674-75-35 14:21:0013.3[facility] HermannHEMATOLOGY 2018-11-04 14:21:0012.5[facility] JalkzlvADQHSXFLLN2049-74-92 14:21:008.5[facility] DfomwwsJZMEBNRLQG8352-82-58 14:21:0086.4[facility] GkdrvzmJAXQSWMCIS8977-02-39 14:21:0035.6[facility] LmiipymQIMJNBCJXO6947-79-12 14:21:00 Test Item Value Reference Range Interpretation Comments MCH (test code = MCH) 30.2 pg 27.0-31.0 [facility] HermannCHEM CCXZY2016-92-91 11:06:005.4[facility] HermannCHEM PANEL 2018-11-04 11:06:001.8[facility] HermannCHEM RGAPG7265-20-02 11:06:15516Dpfcknbr HermannCHEM FTSGG7290-60-99 11:06:008.1[facility] HermannCHEM PFRAH2418-80-15 11:06:74902Vwxokujb HermannCHEM KHEDA1947-11-75 11:06:004.8[facility] HermannCHEM WALGE3212-37-82 11:06:38184Ojlwmgyi HermannCHEM IXLUO4380-08-25 11:06:0025 [facility]annCHEM MUESH6783-63-99 11:06:0015[facility] HermannCHEM PANEL 2018-11-04 11:06:000.65[facility] HermannCHEM OMYJT2469-51-71 11:06:97134Lnafljtb HermannCHEM YFRAH5195-01-57 11:06:0012.8[facility] HermannPARATHYROID PROFILE 2018-11-04 11:06:001.05[facility] HermannPARATHYROID SCZITFW1573-21-41 11:06:00 1.05[facility] HermannCHEM BSMIO4113-05-56 09:35:001.8[facility] HermannCHEM PANEL 2018-11-03 09:35:004.2[facility] EccofijHEXQIFEAVTVO9631-23-13 09:35:0013.1 [facility] YadpqguTAGDUGIJRTWS9310-11-78 09:35:96590Fuiwwesi HermannELECTROLYTES 2018-11-03 09:35:008.0[facility] AdkupgcGQDVIDNUZUDY4006-13-92 09:35:30786Lcodbbbq HrjhgqjCAIGYMDCEVXJ6154-38-43 09:35:0021[facility] WckccmdHQVONCQXBOVW0959-93-24 09:35:0010[facility] RnyyvvqQFMDHIIKSQJR5650-45-45 09:35:000.72[facility] IYWVSTKXPXHJ6871-77-81 09:35:0094[facility] RzfxdcuDCXSNEXLGXXC3877-13-57 09:35:00 142[facility] EuczbjkYXGKXVIRXDJG8633-95-27 09:35:003.1[facility] HermannHEMATOLOGY 2018-11-03 09:35:000.2[facility] AapswdxGMRLRSUZFO1104-24-66 09:35:000.1[facility] UjnivvuFAPCVZKHYW1202-35-25 09:35:0037.1[facility] HisoaodCQONAPJIVL2021-92-87 09:35:008.0[facility] BxqnvghERGRMNVMAJ4275-98-72 09:35:0051.3[facility] [place] EJCFTUENMR5139-54-44 09:35:000.7[facility] XydxotqNWENELMWCC5851-01-71 09:35:003.1 [facility] HvnozfrMBVQKZBFZG9441-92-37 09:35:002.7[facility] HermannHEMATOLOGY 2018-11-03 09:35:000.9[facility] FhklwwsSLEYSPACYL6928-45-95 09:35:004.3[facility] VzpzfahSXVXIKEAAP1325-35-79 09:35:008.5[facility] ZpsnilsEWROJWTDOJ4819-59-71 09:35:003.70[facility] WeafglbPFXKLBHAAV9259-03-81 09:35:0011.3[facility] [place] DNMBKUACAU3693-68-47 09:35:0031.5[facility] SjrkezaQEHMKKTFVI2283-51-68 09:35:00 9.4[facility] ZoypcsnGIULPENLHV9224-37-41 09:35:0012.9[facility] HermannHEMATOLOGY 2018-11-03 09:35:37060Snscnvqs GglbaotUNZRBNQRUC9097-71-40 09:35:0035.9[facility] ZadiidsEBGEESMSER0292-29-45 09:35:00 Test Item Value Reference Range Interpretation Comments MCH (test code = MCH) 30.5 pg 27.0-31.0 [facility] HsweyohKTEAQDXITW0502-76-81 09:35:0085.1[facility] HermannPARATHYROID NYQQHSB7739-00-20 09:35:001.08[facility] HermannPARATHYROID TKZCQFL8927-25-57 09:35:001.09[facility] HermannCHEM GDAXC6715-88-57 08:48:004.1[facility] HermannCHEM GIJCN4725-76-05 08:48:001.5[facility] HermannCHEM PPYJI7797-56-39 08:48:98095 [facility]annCHEM LEJZT1102-95-10 08:48:008.9[facility] HermannCHEM PANEL 2018-11-02 08:48:0020[facility] HermannCHEM KNMVC8723-03-78 08:48:0014.0[facility] HermannCHEM KYARW0085-04-33 08:48:000.62[facility] HermannCHEM IQEZB9153-71-07 08:48:007[facility] HermannCHEM SFWSS3800-00-44 08:48:003.0[facility] HermannCHEM TRDZU2925-16-46 08:48:69894Gigjwuby HermannCHEM BJQHY7460-39-54 08:48:41969 [facility]annCHEM OWXUQ8505-13-01 08:48:0098[facility] HermannCHEM PANEL 2018-11-02 08:48:003.6[facility] QasudctQCKSISMHKO6923-83-33 08:48:000.1[facility] StsqmemDEHBOJHAYJ9485-76-29 08:48:000.7[facility] QipchwsAAIQNEWNKK7562-48-88 08:48:003.5[facility] DsxdqdbRLXKEZTSJL6492-45-05 08:48:004.4[facility] HWJWGSBAPE3454-47-23 08:48:008.5[facility] GzrszudRSNSJTKPQM7581-17-66 08:48:00 35.2[facility] MtjlqyxUIFVZQEJNZ4043-46-14 08:48:0052.1[facility] HermannHEMATOLOGY 2018-11-02 08:48:000.3[facility] AqjetwjMCBBGYGDSW2168-57-58 08:48:000.7[facility] QrctfuoKJZOQYTLZV4042-28-64 08:48:003.0[facility] BpjiakwYCSCWKQWWS3762-61-50 08:48:008.7[facility] VhmjsatKFNYIUVLWM9259-04-27 08:48:0013.0[facility] RSZRABABFU6857-98-15 08:48:22934Hinxofbm IdwksduBGSEEJTJYF0663-85-67 08:48:00 85.8[facility] TvphilqZUPBPGHLLI7401-81-73 08:48:00 Test Item Value Reference Range Interpretation Comments MCH (test code = MCH) 31.1 pg 27.0-31.0 [facility] AnqxshkNWWHEUSQGC3294-96-86 08:48:0036.2[facility] HermannHEMATOLOGY 2018-11-02 08:48:0012.2[facility] RaedmhzNKHBWHGGNZ6783-74-74 08:48:0033.6[facility] NwlssshYGPVIXHWMW1426-85-30 08:48:008.5[facility] KzfggcaLPDDWTMRFP5893-50-63 08:48:003.92[facility] HermannPARATHYROID DKRDNSA7802-22-17 08:48:001.15[facility] HermannPARATHYROID DCRFQRW3036-10-88 08:48:001.11[facility] HermannCHEM PANEL 2018-11-02 00:46:004.7[facility] HermannCHEM KHCAT2795-64-22 16:20:004.2[facility] LlcwtllWHFYNEKIJF4790-98-50 08:26:001.3[facility] TvyvaulQLROAMSWPQ4753-43-86 08:26:00 Test Item Value Reference Range Interpretation Comments Vanco Tr TND (test code = Vanco Tr 0730 1 TND) [facility]annCHEM OWRTC9765-83-00 15:08:000.3[facility]annURINE AND STOOL 2018-10-30 15:08:00<1.0[facility]UR[facility] AND OJGED3878-00-43 15:08:00 Negative (10/30/18 10:08 AM)[facility] AVBMX8041-14-37 15:08:00 Moderate *ABN*(10/30/18 10:08 AM)[facility] EJGFZ8894-79-21 15:08:00Small *ABN*(10/30/18 10:08 AM)[facility] AND GYWFZ5013-38-90 15:08:001[facility]UR[facility] AND URZUT5450-11-90 15:08:001[facility] [place] URINE AND ELIAQ3426-09-78 15:08:00 Test Item Value Reference Range Interpretation Comments UA Spec Grav (test code = UA Spec 1.005 1 Grav) [facility] KCOUN3158-58-35 15:08:00 Test Item Value Reference Range Interpretation Comments UA pH (test code = UA pH) 6.0 1 5.0-8.0 [facility] WRESR0325-43-74 15:08:00Negative *NA*(10/30/18 10:08 AM) [facility] HOTLF9703-38-72 15:08:00Clear (10/30/18 10:08 AM) [facility] VXOKO4938-64-98 15:08:00Light Yellow *NA*(10/30/18 10:08 AM)[facility] HermannCHEM ANWAX3119-86-14 23:51:0094[facility] HermannCHEM PANEL 2018-10-28 23:51:0059[facility] RvpmookUYXHRCZBPX0026-76-42 21:04:00Negative *NA*(10/28/18 4:04 PM)[facility] ROXRF3386-13-63 19:06:00Negative (10/28/18 2:06 PM)[facility] OBDEY0807-49-58 19:06:00Trace *ABN*(10/28/18 2:06 PM)[facility] SAIPH3994-77-55 19:06:00None Seen (10/28/18 2:06 PM)[facility] KJBBV7246-97-45 19:06:00Negative *NA*(10/28/18 2:06 PM)[facility] AND QWQYR4898-40-00 19:06:00Negative (10/28/18 2:06 PM)[facility] WJAEZ4270-43-43 19:06:000.2[facility] AND HGBJE8605-05-35 19:06:00Negative (10/28/18 2:06 PM)[facility] UTVVH7070-99-82 19:06:00Negative (10/28/18 2:06 PM)[facility] RTBLI5170-50-81 19:06:00Negative *NA*(10/28/18 2:06 PM)[facility] AND WMBMR1703-37-81 19:06:00Clear (10/28/18 2:06 PM)[facility] [place] URINE AND DYPHJ2459-73-45 19:06:00 Test Item Value Reference Range Interpretation Comments UA pH (test code = UA pH) 5.5 1 5.0-8.0 [facility] AND QMQDU5567-44-98 19:06:00 Test Item Value Reference Range Interpretation Comments UA Spec Grav (test code = UA Spec 1.010 1 Grav) [facility] OZPYU2865-00-22 19:06:00Yellow *NA*(10/28/18 2:06 PM) [facility] LLEGL3986-76-18 19:06:00<1[facility] AND VMXGS7702-76-83 19:06:001[facility] HermannDRUG HVRZOY8694-27-45 21:34:00See Note (10/26/18 4:34 PM)[facility] HermannDRUG SIJSGK1526-05-23 21:34:00Negative *NA*(10/26/18 4:34 PM)[facility] HermannDRUG DUAGOQ7608-27-43 21:34:00Negative *NA*(10/26/18 4:34 PM)[facility] HermannDRUG NTIQEW4174-07-58 21:34:00Negative *NA*(10/26/18 4:34 PM)[facility] HermannDRUG DTISLW6124-07-70 21:34:00Negative *NA*(10/26/18 4:34 PM)[facility] HermannDRUG WZTUIE7533-28-67 21:34:00Positive *ABN*(10/26/18 4:34 PM)[facility] HermannDRUG JEYSQU7422-05-50 21:34:00Negative *NA*(10/26/18 4:34 PM)[facility] HermannDRUG ZTPEOR6885-17-74 21:34:00Negative *NA*(10/26/18 4:34 PM)[facility] AND GQQPH3323-35-48 21:34:00Clear (10/26/18 4:34 PM)[facility] FLDIH5238-12-39 21:34:00 Test Item Value Reference Range Interpretation Comments UA Spec Grav (test code = UA Spec 1.026 1 Grav) [facility] JRJJA4755-49-25 21:34:00Yellow *NA*(10/26/18 4:34 PM) [facility] UJFZB0924-41-54 21:34:00Negative *NA*(10/26/18 4:34 PM) [facility] PDLNI4340-33-93 21:34:00 Test Item Value Reference Range Interpretation Comments UA pH (test code = UA pH) 5.0 1 5.0-8.0 [facility] VUHDX3502-23-04 21:34:00<1.0[facility]annUR[facility] AND NJBVM1465-75-03 21:34:00Negative (10/26/18 4:34 PM)[facility] MPMRK5108-99-74 21:34:00<1[facility]UR[facility] AND AXJJG4003-00-35 21:34:00 Negative (10/26/18 4:34 PM)[facility] ZMWAT4594-37-01 21:34:00 Negative (10/26/18 4:34 PM)[facility] AND WCYKU3181-37-05 21:34:001 [facility] HermannBACTERIAL - AOAEMCDB6007-41-64 16:26:00Negative (10/26/18 11:26 AM)[facility] HermannCHEM MEQUM5574-68-15 16:26:0039.0[facility] HermannCHEM PANEL 2018-10-26 16:26:00 Test Item Value Reference Range Interpretation Comments A/G Ratio (test code = A/G Ratio) 0.9 1 0.7-1.6 [facility]annCHEM AOBDM5094-30-26 16:26:003.7[facility] HermannCHEM PANEL 2018-10-26 16:26:0091[facility] HermannCHEM MQROD5983-10-88 16:26:000.3[facility] HermannCHEM KOLFQ5319-52-82 16:26:0025[facility] HermannCHEM XNHBV5229-60-18 16:26:000.1[facility] HermannCHEM PWLZS8989-88-48 16:26:000.2[facility] HermannCHEM JDNFM1657-26-58 16:26:0028[facility] HermannCHEM MGSSQ5662-17-82 16:26:003.5 [facility]annCHEM SSZBF0281-34-26 16:26:007.2[facility] HermannCHEM PANEL 2018-10-26 16:26:0058[facility] HermannCHEM MMAYW6299-04-13 16:26:0062[facility] HermannCHEM WLVFA5146-94-88 10:46:00 Test Item Value Reference Range Interpretation Comments A/G Ratio (test code = A/G Ratio) 1.0 1 0.7-1.6 [facility]annCHEM YOHUN4679-07-47 10:46:00 Test Item Value Reference Range Interpretation Comments B/C Ratio (test code = B/C Ratio) 27 1 6-25 [facility]annCHEM HNOIF4806-74-73 10:46:003.9[facility] HermannCHEM PANEL 2018-10-26 10:46:0030[facility] HermannCHEM WZWZV1818-70-11 10:46:000.3[facility] HermannCHEM KRNXS1747-50-27 10:46:0097[facility] HermannCHEM PIRCS7546-72-93 10:46:004.0[facility] HermannCHEM HFZJK0311-69-15 10:46:0023[facility] HermannCHEM VDAKK4120-10-31 10:46:007.9[facility] HermannCHEM YYGLN8908-37-01 10:46:00<0.1 [facility] ImhvlqkOGEATQ1102-78-02 10:46:00 Test Item Value Reference Range Interpretation Comments VLDL (test code = VLDL) 24 1 [facility] JpqagmhYXZJRD1621-64-05 10:46:0078[facility] HlgcbuyICYYUK2021-09-60 10:46:14948Aiywnxec NyjzcedTNWFWQ7338-90-82 10:46:0034[facility] HermannLIPIDS 2018-10-26 10:46:81552Mfywkoip MiujhizESJDCO1559-36-36 10:46:00 Test Item Value Reference Range Interpretation Comments CHD Risk (test code = CHD Risk) 4.00 1 4.00-7.30 [facility] HermannSPECIAL RZYRRDRTD4936-03-50 10:46:005.4[facility]
--- OUTSIDE RECORDS SUMMARY | 2020-02-20 16:07 | XMS REPORT | Summary of Care ---
:[address] [facility] - Health Address [address] [place] [id number] Care Team Providers Name Role Phone Pcp, Patient Does Not Have A Primary Care Provider +1-000-00 0-0000 Encounter Details Date Type Department Care Team Description 12/19/[address] [facility] Doctor Unassigned, No [address] [facility] Name [place] [phone] [phone] Allergies Active Allergy Reactions Severity Noted Date Comments Amoxicillin (Bulk) Anaphylaxis 10/18/2018 documented as of this encounter (statuses as of 01/14/2020) Medications Medication Sig Dispensed Refills Start Date [...] as of this encounter (statuses as of 01/14/2020) Active Problems Problem Noted Date Bilateral hearing loss 10/19/2018 documented as of this encounter (statuses as of 01/14/2020) Social History Tobacco Use Types Packs/Day Years [...] Office Visit Neurology Will Alva MD [address] [phone] Health Maintenance Due Date Last Done Comments VARICELLA VACCINES (1 of 2 - 1993 2-dose childhood series) Depression Screening 2004 DTaP,Tdap,and Td Vaccines (1 - 07/30/2011 Tdap) INFLUENZA VACCINE (#1) 2019 PNEUMOCOCCAL 0-64 YEARS COMBINED Aged Out No longer eligible based on SERIES patient's age to complete this topic documented as of this encounter Procedures Procedure Name Priority Date/Time Associated Diagnosis Comme nts REFERRAL- Routine 12/19/2019 12:01 AM CDT REQUEST/RESPONSE documented in this encounter Results Not on filedocumented in this encounter Insurance Payer Benefit Plan / Subscriber ID Effective Dates Phone Addre ss Type Group [employer] MEDICAID OF [id number] 2018-Present [phone] [address] Medicaid [place] [id number] [place] [phone] documented as of this encounter Advance Directives Type Date Recorded 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
--- NOTE | 2020-02-20 16:58 | RAD REPORT ---
EXAM DESCRIPTION: RAD - Chest Single View - 02/20/2020 4:46 pm CLINICAL HISTORY: COUGH COMPARISON: Portable November 2018 TECHNIQUE: AP portable chest image was obtained 02/20/2020 4:46 pm . FINDINGS: No focal lung parenchymal process. Interstitial pattern matches comparison. Heart and vasc ulature are normal. No measurable pleural effusion and no pneumothorax. No acute bony abnormality see n. No acute aortic findings suspected. IMPRESSION: No acute cardiopulmonary process. No significant change from comparison.
--- NOTE | 2020-02-20 17:02 | EDPHYS ---
Physician Documentation [facility] Name: Lucien Calvillo Jr Age: 29 yrs Sex: Male : 1990 Arrival Date: 02/20/2020 Time: 16:03 Bed 14 Private MD: ED Physician Jp Rios HPI: 02/19 16:27 This 29 yrs old Male presents to ER via Ambulatory with complaints of cp Breathing Difficulty. 16:27 The patient has shortness of breath at rest. cp 16:27 Onset: The symptoms/episode began/occurred this morning. cp 16:27 Associated signs and symptoms: Pertinent negatives: chest pain, productive cough, cp fever, vomiting. 16:27 Patient reports taking medications this morning and then taking a nap. Upon awakening, cp begin coughing and feeling short of breath . Historical: - Allergies: 16:22 Amoxicillin; ss - PMHx: 16:22 CVA; MELAS; Seizures; Bipolar disorder; ss - PSHx: 16:22 None; ss - Immunization history:: Adult Immunizations up to date. - Social history:: Smoking status: Patient denies any tobacco usage or history of. ROS: 16:30 Constitutional: Negative for body aches, chills, fever, poor PO intake. cp 16:30 Eyes: Negative for injury, pain, redness, and discharge. cp 16:30 ENT: Negative for ear pain, sore throat, difficulty swallowing, difficulty handling secretions. 16:30 Cardiovascular: Negative for chest pain. 16:30 Respiratory: Positive for cough, "sounds productive", shortness of breath, Negative for wheezing. 16:30 Abdomen/GI: Negative for abdominal pain, nausea, vomiting, and diarrhea. 16:30 Skin: Negative for rash. 16:30 Neuro: Negative for altered mental status, headache, syncope, weakness. 16:30 All other systems are negative. Exam: 16:35 Head/Face: Normocephalic, atraumatic. cp 16:35 Constitutional: The patient appears in no acute distress, alert, awake, non-diaphoretic, non-toxic, well developed, well nourished. 16:35 Eyes: Periorbital structures: appear normal, Conjunctiva: normal, no exudate, no injection, Lids and lashes: appear normal, bilaterally. 16:35 ENT: External ear(s): are unremarkable, Nose: is normal, Posterior pharynx: Airway: no evidence of obstruction, patent. 16:35 Chest/axilla: Inspection: normal, Palpation: is normal, no crepitus, no tenderness. 16:35 Cardiovascular: Rate: normal, Rhythm: regular. 16:35 Respiratory: the patient does not display signs of respiratory distress, Respirations: normal, no use of accessory muscles, no retractions, labored breathing, is not present, Breath sounds: are clear throughout, no decreased breath sounds, no stridor, wheezing: is not appreciated. 16:35 Abdomen/GI: Exam negative for discomfort, distension, guarding, Inspection: abdomen appears normal. Vital Signs: 16:18 BP 136 / 93; Pulse 76; Resp 15; Temp 98.4(TE); Pulse Ox 99% on R/A; Weight 45.81 kg; ss Height 5 ft. 4 in. (162.56 cm); Pain 0/10; 17:16 BP 128 / 80; Pulse 81; Resp 16 S; Pulse Ox 100% on R/A; ca1 16:18 Body Mass Index 17.34 (45.81 kg, 162.56 cm) ss MDM: 16:15 Patient medically screened. cp 16:30 Differential diagnosis: Bronchitis pneumonia, Pneumothorax COVID-19. cp 17:00 Data reviewed: vital signs, nurses notes, radiologic studies, plain films. cp 17:00 Test interpretation: by ED physician or midlevel provider: chest xray negative for cp infiltrates. Counseling: I had a detailed discussion with the patient and/or guardian regarding: the historical points, exam findings, and any diagnostic results supporting the discharge/admit diagnosis, radiology results, to return to the emergency department if symptoms worsen or persist or if there are any questions or concerns that arise at home. ED course: VSS. No signs of respiratory distress. Patient instructed to quarantine while awaiting results of COVID-19 testing. 02/19 16:24 Order name: COVID-19 cp 02/19 16:24 Order name: XRAY Chest (1 view); Complete Time: 17:05 cp 02/19 17:05 Interpretation: Report reviewed. cp Administered Medications: No medications were administered Disposition: 02/20/20 17:01 Discharged to Home. Impression: Cough. - Condition is Stable. - Discharge Instructions: Cool Mist Vaporizer, Cough, Adult. - Prescriptions for Tessalon Perles 100 mg Oral Capsule - take 2 capsule by ORAL route every 8 hours As needed; 30 capsule. Albuterol Sulfate 90 mcg/actuation - inhale 1-2 puff by INHALATION route every 4-6 hours; 1 Inhaler. - Medication Reconciliation Form, Thank You Letter, Antibiotic Education, Prescription Opioid Use form. - Follow up: Private Physician; When: 2 - 3 days; Reason: Worsening of condition. - Problem is new. - Symptoms have improved. Addendum: 02/22/2020 06:39 Co-signature as Attending Physician, Jp Rios MD I agree with the assessment and k dr plan of care. Signatures: Dispatcher [employer] EDMS Jp Rios MD MD [facility] Rosa Isela Boone RN RN ss Tony Finney PA PA cp Acob, Ara RN RN ca1 Corrections: (The following items were deleted from the chart) 02/19 17:17 17:01 02/20/2020 17:01 Discharged to Home. Impression: Cough. Condition is Stable. ca1 Forms are Medication Reconciliation Form, Thank You Letter, Antibiotic Education, Prescription Opioid Use. Follow up: Private Physician; When: 2 - 3 days; Reason: Worsening of condition. Problem is new. Symptoms have improved. cp 02/20 09:59 02/18 16:35 Constitutional: The patient appears in no acute distress, alert, awake, cp non-diaphoretic, non-toxic, well developed, well nourished, cp 02/20 09:02/18 16:35 Head/Face: Normocephalic, atraumatic. cp cp 02/20 09:02/18 16:35 Eyes: Periorbital structures: appear normal, Conjunctiva: normal, no cp exudate, no injection, Lids and lashes: appear normal, bilaterally, cp 02/20 09:02/18 16:35 ENT: External ear(s): are unremarkable, Nose: is normal, Posterior pharynx: cp Airway: no evidence of obstruction, patent, cp 02/20 09:59 02/18 16:35 Chest/axilla: Inspection: normal, Palpation: is normal, no crepitus, no cp tenderness, cp 10/02/18 16:35 Cardiovascular: Rate: normal, Rhythm: regular, cp cp 02/20 16:35 Respiratory: the patient does not display signs of respiratory distress, cp Respirations: normal, no use of accessory muscles, no retractions, labored breathing, is not present, Breath sounds: are clear throughout, no decreased breath sounds, no stridor, wheezing: is not appreciated, cp 02/20 16:35 Abdomen/GI: Exam negative for discomfort, distension, guarding, Inspection: cp abdomen appears normal, cp
--- NOTE | 2020-02-20 17:02 | ER ---
Nurse's Notes [facility] Name: Lucien Calvillo Jr Age: 29 yrs Sex: Male : 1990 Arrival Date: 02/20/2020 Time: 16:03 Bed 14 Private MD: Diagnosis: Cough Presentation: 02/19 16:18 Chief complaint: Patient states: Took bipolar medication 1 hour ago and had a coughing ss fit right after. Pt does not have a cough at this time, but is requesting a COVID test. Coronavirus screen: Client denies travel out of the [place] in the last 14 days. Ebola Screen: Patient denies exposure to infectious person. Patient denies travel to an Ebola-affected area in the 21 days before illness onset. Initial Sepsis Screen: Does the patient meet any 2 criteria? No. Patient's initial sepsis screen is negative. Does the patient have a suspected source of infection? No. Patient's initial sepsis screen is negative. Risk Assessment: Do you want to hurt yourself or someone else? Patient reports no desire to harm self or others. Onset of symptoms was February 20, 2020. 16:18 Method Of Arrival: Ambulatory ss 16:18 Acuity: GINNY 4 ss Historical: - Allergies: 16:22 Amoxicillin; ss - PMHx: 16:22 CVA; MELAS; Seizures; Bipolar disorder; ss - PSHx: 16:22 None; ss - Immunization history:: Adult Immunizations up to date. - Social history:: Smoking status: Patient denies any tobacco usage or history of. Screenin:20 Abuse screen: Denies threats or abuse. Denies injuries from another. Nutritional ca1 screening: No deficits noted. Tuberculosis screening: No symptoms or risk factors identified. Fall Risk None identified. Assessment: 16:20 General: Appears in no apparent distress. comfortable, Behavior is calm, cooperative, ca1 appropriate for age. Pain: Denies pain. Neuro: Level of Consciousness is awake, alert, obeys commands, Oriented to person, place, time, situation. Cardiovascular: Heart tones S1 S2 present Capillary refill < 3 seconds Patient's skin is warm and dry. Rhythm is regular. Respiratory: Airway is patent Respiratory effort is even, unlabored, Respiratory pattern is regular, symmetrical, Breath sounds are clear bilaterally. Respiratory: Reports cough that is. GI: Abdomen is flat, non-distended, Bowel sounds present X 4 quads. Abd is soft and non tender X 4 quads. : No signs and/or symptoms were reported regarding the genitourinary system. EENT: No signs and/or symptoms were reported regarding the EENT system. Derm: Skin is intact, is healthy with good turgor, Skin is pink, warm \T\ dry. Musculoskeletal: Circulation, motion, and sensation intact. Capillary refill < 3 seconds. 17:16 Reassessment: Patient appears in no apparent distress at this time. Patient is alert, ca1 oriented x 3, equal unlabored respirations, skin warm/dry/pink. Vital Signs: 16:18 BP 136 / 93; Pulse 76; Resp 15; Temp 98.4(TE); Pulse Ox 99% on R/A; Weight 45.81 kg; ss Height 5 ft. 4 in. (162.56 cm); Pain 0/10; 17:16 BP 128 / 80; Pulse 81; Resp 16 S; Pulse Ox 100% on R/A; ca1 16:18 Body Mass Index 17.34 (45.81 kg, 162.56 cm) ED Course: 16:03 Patient arrived in ED. bp1 16:11 Tony Finney PA is PHCP. cp 16:11 Jp Rios MD is Attending Physician. cp 16:20 Patient has correct armband on for positive identification. Bed in low position. Call ca1 light in reach. Side rails up X 1. Pulse ox on. NIBP on. Warm blanket given. 16:21 Triage completed. ss 16:22 Arm band placed on right wrist. ss 16:26 Ara Stiles, RN is Primary Nurse. ca1 16:46 XRAY Chest (1 view) In Process Unspecified. EDMS 17:17 No provider procedures requiring assistance completed. Patient did not have IV access ca1 during this emergency room visit. Administered Medications: No medications were administered Outcome: 17:01 Discharge ordered by . cp 17:17 Discharged to home ambulatory. ca1 17:17 Condition: stable 17:17 Discharge instructions given to patient, Instructed on discharge instructions, follow up and referral plans. medication usage, Demonstrated understanding of instructions, follow-up care, medications, Prescriptions given X 2. 17:17 Patient left the ED. ca1 Addendum: 02/23/2020 19:25 Addendum: COVID-19 Result: Negative result given to RN to notify pt. Notified pt of i w negative COVID 19 swab results. Pt advised that even with a negative test result they should remain in isolation until symptom free for 3 days without medication. Pt also advised to return to the ED for worsening symptoms. Signatures: Dispatcher [employer] EDSandra Forrest RN RN iw Rosa Isela Bonoe RN RN ss Tony Finney PA PA cp Acob, Cheryl, RN RN ca1 Elaine Simmons bp1
[2020-02-20 17:42] VITALS: TEMP 98.4
[2020-02-20 17:43] VITALS: BP 128/80; O2SAT 100
== END 2020-02-20 17:17 | disposition home or self-care (01) ==
LOC: ER 15:58
DX: R05 Cough (principal); Z20.828 Contact with and (suspected) exposure to other viral communicable diseases; Z88.1 Allergy status to other antibiotic agents
CPT/HCPCS: 71045; 99283; U0002

== ENCOUNTER 2020-08-12 13:17 | Emergency (ER) | payer MEDICAID ==
--- OUTSIDE RECORDS SUMMARY | 2020-08-12 13:22 | XMS REPORT | Continuity of Care Document ---
:1990 Author Organization [facility] t Address [address] [place] [address] Care Team Providers Name Role Phone Doctor Unassigned, [place] Attending Clinician Unavailable Aki ZACARIAS E Attending Clinician Bert Rowe Attending Clinician Abril Diaz Attending Clinician Ritika Attending Clinician Bert Rowe Admitting Clinician Yuliet Carr Admitting Clinician Abril Diaz Admitting Clinician Problems Condition Condition Condition Status Onset Resolution Last Treating Co mments Source Name Details Category Date Date Treatment Clinician Date SEIZURES Diagnosis Active 2019-09-20 M emoria 8 16:43:00 l SEIZURES 00:00: Reji n 00 Active 11/30/2018 [facility] STROKE Diagnosis Active 2018-11-16 Mem oria SYMPTOMS 7-20 23:36:00 l STROKE 00:00: [place] SYMPTOMS 00 Active 11/16/2018 [facility] MELAS Diagnosis Active 2019-09-20 Mem oria SYNDROME 7-20 16:42:00 l MELAS 00:00: [place] SYNDROME 00 Active 11/16/2018 [facility] STROKE Diagnosis Active 2019-03-24 Mem oria 7- 16:17:00 l STROKE 00:00: [place] 00 Active 10/28/2018 [facility] AMS Diagnosis Active 2018-10-26 Mem oria 10-26 03:37:00 l AMS 00:00: [place] 00 Active 10/26/2018 [facility] MELAS, Diagnosis Active 2019-09-20 Mem oria LACTIC 10-26 16:40:00 l ACIDOSIS MELAS, 00:00: Reji n STRK-LIKE LACTIC 00 EPISO ACIDOSIS STRK-LIKE EPISO Active 10/26/2018 [facility] CEREBRAL Diagnosis Active 2019-09-20 M emoria INFARCTION 16:40:00 l , CEREBRAL Reji n UNSPECIFIE INFARCTION D , UNSPECIFIE D Active [facility] Allergies, Adverse Reactions, Alerts Allergy Allergy Status Severity Reaction(s) Onset Inactive Treating Comm ents Source Name Type Date Date Clinician amoxicil amoxicil Active Memori a ezequiel ezequiel l [place] Depakote Depakote Active Memori a <sup>1</ <sup>1</ l sup> sup> [place] Medications Ordered Filled Start Stop Current Ordering Indication Dosage Frequency Signature Comments Components Source Medication Medication Date Date Medication? Clinician (SIG) Name Name carBAMazepi Yes 300 mg = 3 Memoria ne 100 mg 12-01 tab, PO, l oral 15:51: Q12H, # [place] tablet, 00 360 tab, 3 chewable Refill(s) Occupationa Yes See Memori a l Therapy 12-01 Instructio l 11:48: ns, MISC, [place] 00 ONCALL, Evaluate and Treat 3 times per week for 4 weeks, # 1 unit, 0 Refill(s) Physical Yes See Memoria Therapy 12-01 Instructio l 11:48: ns, MISC, [place] 00 ONCALL, Evaluate and Treat 3 times per week for 4 weeks, # 1 unit, 0 Refill(s) carBAMazepi No 200 mg = 1 Memoria ne 200 mg - tab, PO, l oral tablet 11:48: Q12H, # Her cotto 00 180 tab, 3 Refill(s) carBAMazepi No 200 mg = 1 Memoria ne 200 mg 11-30 tab, PO, l oral tablet 16:28: Q12H, 3 Her cotto 00 Refill(s) Levetiracet No 500 mg, Mem oria am 11-30 Route: PO, l 16:00: Drug form: [place] 00 TAB, Q12H, Dosing Weight 38.56, kg, Start date: 11/30/18 11:00:00 CDT, Duration: 30 day, Stop date: 12/30/18 9:00:00 CDT Co-Q10 0 No Notes: Memoria 11-30 (Same As: l 14:00: Co-Enzyme Q10) L-Arginine No 4,000 mg, Me moria 11-30 Route: PO, l 14:00: Drug form: [place] 00 TAB, TID, Dosing Weight 38.56, kg, [...] Same as: l 18:00: L-arginine Co-Q10 200 0 Yes 800 mg, Andres cindy mg oral 7-25 PO, TID, # l capsule 17:11: 360 caplet, 0 Refill(s) levOCARNiti 0 Yes 330 mg = 1 Memoria ne 330 mg 7-25 tab, PO, l oral tablet 17:11: TID, # 90 H ermann 00 tab, 0 Refill(s) L-Arginine Yes 4,000 mg, Me moria 1000 mg 7-25 PO, TID, # l oral tablet 17:11: 90 tab, 0 H ermann 00 Refill(s) lacosamide 0 Yes 100 mg = 1 M emoria 100 mg oral 7-25 tab, PO, l tablet 16:25: Q12H, # 60 Trini nn 00 tab, 0 Refill(s) L-Arginine No Notes: Memor ia 11-21 Same as: l 03:50: L-arginine Vimpat No Notes: Memoria 11-20 Same as: l 14:00: Vimpat [place] 00 Vimpat No Notes: Memoria 11-17 Same as: l 22:00: Vimpat [place] 00 MEDICATION WASTE Product Size: 200 mg Product Wasted: ___ mg Carnitor No Notes: Memoria 11-17 (Same l 18:00: as:Carnito r) Vimpat No Notes: Memoria 11-17 Same as: l 15:39: Vimpat [place] 00 MEDICATION WASTE Product Size: 200 mg [...] as: l container 1 14:00: R-Gene 10) [place] Docusate No Notes: Memoria 11-17 (Same as: l 14:00: Colace) (Do Not Crush) sennosides, No Notes: Andres cindy [facility] 11-17 (Same as: l 14:00: Senokot) olanzapine 2018- No Notes: Memor ia - (Same as: l 13:22: ZyPREXA) L-Arginine No [...] = 1 Me moria 50 MG Oral 7-21 tab, PO, l Tablet 07:36: BID, # 30 Reji n [Vimpat] 00 day, 0 Refill(s) CoQ10 0 No 200 mg, Memoria -21 PO, Daily, l 07:36: 0 Refill(s) olanzapine No 5 mg, PO, Me moria 7-21 Q12H, # 20 l 07:36: tab, 0 [place] 00 Refill(s) Saline No Notes: Memoria Flush [...] ONLY" Saline No Notes: Memoria Flush 0.9% 11-17 (Same as: l 03:19: BD Posiflush) lacosamide Yes 50 mg = 1 Me moria 50 mg oral 11-05 tab, PO, l tablet 22:30: BID, # 120 Trini nn 00 tab, 2 Refill(s) olanzapine Yes 5 mg = 1 Mem oria 5 MG Oral 7-09 tab, PO, l Tablet 22:15: PRN, PRN [place] 42 Other -See Comment, PRN Q12, # 60 tab, 0 Refill(s) ubiquinone Yes 400 mg = 2 M emoria 200 mg oral 11-05 cap, PO, l capsule 20:46: Daily, # Reji n 00 120 cap, 0 Refill(s) melatonin 3 Yes 6 mg = 2 Me moria mg oral 7-09 tab, PO, l tablet 19:48: Bedtime, [place] 00 PRN Sleep, # 60 tab, 0 Refill(s) lacosamide No 50 mg = 1 Me moria 50 mg oral 7-09 tab, PO, l tablet 19:48: BID, # 7 [place] 00 tab, 0 Refill(s) olanzapine No 5 mg = 1 Mem oria 5 MG Oral 7-09 tab, PO, l Tablet 19:48: PRN, PRN [place] 00 Other -See Comment, # 60 tab, 0 Refill(s) arginine Yes 5,000 mg = Mem oria 500 mg oral 11-05 10 cap, l capsule 19:48: PO, TID, # Herm maria e 00 1800 cap, 0 Refill(s) D10W 980.75 2019-0 No 980.75 mL, Memoria mL + sodium 11-05 Rate: 100 l chloride 01:55: ml/hr, [place] 23.4% IV 77 00 Infuse mEq over: [...] 11-03 (Same as: l 15:45: Arginine) potassium 2018-0 No 20 mEq, Memor ia chloride 11-03 [...] Bin Magnesium No Notes: Memori a Sulfate - WASTE: F/P l 11:29: - Sink; E - Municipal Trash Bin Potassium No Notes: Memori a Chloride 7-06 (Same as: l 11:00: KCL) Infuse over 2 hours. potassium No Notes: Memori a chloride 7-05 (Same as: l 14:00: Potassium Chloride) Marinol No Notes: Memoria 7-04 (Same as: l 22:00: Marinol) Magnesium No Notes: Memori a Sulfate - WASTE: F/P l 17:16: - Sink; E - Municipal Trash Bin Potassium No 20 mEq, Memor ia Chloride 10-31 100 mL, l 13:00: Route: IVPB, Drug [...] ral Line Melatonin No Notes: Memori a - (Same as: l 07:45: Melatonin) Phenergan No Notes: Do Mem oria - not give l 03:30: IV push. (Same as: Phenergan) Vancomycin No 2001 mg: Me moria - infuse l 01:00: over 2.5 hours For adult patients only: Round to nearest 250 mg per Medical Staff approval MEDICATION WASTE Product Size: 1000 mg Product Wasted: ___ mg potassium No Notes: Memori a chloride - (Same as: l 17:00: KCL) Infuse no [...] Wasted: ___ mg cefepime No Notes: Memoria - (Same As: l 13:00: Maxipime) MEDICATION WASTE Product Size: 1000 mg Product Wasted: ___ mg Tylenol No Notes: Max Andres cindy 10-30 acetaminop l 11:51: hen = 4000mg/day (4 gm/day). (Same as: Tylenol) L-Arginine No Notes: Memor ia - (Same as: l 09:45: Arginine) Potassium No Notes: Memori a Chloride - (Same as: l 09:41: KCL) [place] 00 Infuse over 2 hours. NS (Bolus) [...] IV 10-29 500 ml/hr, l 08:57: Infuse [place] 00 Over: 1 hr, Route: IV, 500, Drug form: INJ, ONCE, Priority: STAT, Dosing Weight 50 kg, Start date: 10/29/18 3:57:00 CDT, Stop date: 10/29/18 3:57:00 CDT, 0 Potassium No Notes: Memori a Chloride 10-29 (Same as: l 07:00: KCL) [place] 00 Infuse over 2 hours. D10W 980.75 No 980.75 mL, Memoria mL + sodium 10-28 Rate: 200 l chloride 23:03: ml/hr, [place] 23.4% IV 77 00 Infuse [...] 14:53:00 CDT, 0 Geodon No Notes: Memoria 7- Reconstitu l 19:48: te with [place] 00 1.2 ml of sterile water. Final concentrat ion = 20 mg/1ml. Maximum 40 mg/24 hours (Same As: Hiren). MEDICATION WASTE Product Size: 20 mg Product Wasted: _0__ mg Acyclovir No Notes: Memori a 10-28 (Same as: l 19:01: Zovirax) For adult patients only: Round to nearest 50 mg per Medical Staff approval MEDICATION WASTE Product Size: 500 mg Product Wasted: _0__ mg atorvastati No 80 mg, Andres cindy n 10-27 Route: PO, l 02:00: Drug form: TAB, Bedtime, kg, Start date: 10/26/18 21:00:00 CDT, Duration: 30 day, Stop date: 11/24/18 21:00:00 CDT Levocarniti No 2,270 mg, M emoria ne 10-27 Route: PO, l 02:00: Q12H, Dosing Weight 45.455, kg, Start date: 10/26/18 21:00:00 CDT, Duration: 30 day, Stop date: 11/25/18 9:00:00 CDT Geodon No Notes: Memoria 6-29 Reconstitu l 23:27: te with 1.2 ml of sterile water. Final concentrat ion = 20 mg/1ml. Maximum 40 mg/24 hours (Same As: Hiren). MEDICATION WASTE Product Size: 20 mg Product Wasted: 0mg Keppra No Notes: Memoria 6-29 Same as l 23:00: Keppra [place] 00 Mix with 100 mL NS, LR or D5W MEDICATION WASTE Product Size: 500 mg Product Wasted: ___ mg R-Gene 10 4 No Notes: Andres cindy gm + empty - (Same as: l container 1 20:00: R-Gene 10) [place] 00 D10W 980.75 No 980.75 mL, Memoria mL + sodium 6-29 Rate: 150 l chloride 17:44: ml/hr, [place] 23.4% IV 77 00 Infuse mEq over: 6.7 hr, Route: IV, Dosing Weight 50 kg, Total Volume: 1,000, Priority: Routine, Start date: 10/26/18 12:44:00 CDT, Duration: 30 day, Stop date: 11/25/18 12:44:00 CDT, 1.55, m2, 0 arginine 2019-0 No 50 mL, Memoria 10% - Rate: 9.09 l additive 17:44: ml/hr, [place] 5,000 mg 00 Infuse [20 over: 5.5 mg/kg/hr] + hr, Route: Drug Only IV, Dosing 50 mL Weight 45.455 kg, Total Volume: 50 mL, Start date: 10/26/18 12:44:00 CDT, Duration: 30 day, Stop date: 11/25/18 12:43:00 CDT, 1.46, m2 ubiquinone 2018- No Notes: Memor ia - (Same As: l 14:00: Co-Enzyme Q10) Saline 0 No Notes: Memoria Flush 0.9% 10-26 (Same as: l 14:00: BD Posiflush) L-Arginine 2018-0 No 5,000 mg, Me moria 10-26 Route: PO, l 14:00: TID, kg, Start date: 10/26/18 9:00:00 CDT, Duration: 30 day, Stop date: 11/24/18 17:00:00 CDT Phenergan 2018-0 No 25 mg, Memori a - Route: l 13:58: IVPB, ONCE, kg, Start date: 10/26/18 8:58:00 CDT, Stop date: 10/26/18 8:58:00 CDT Dexmedetomi 2018- No 400 Memori a dine 6-29 microgram, l 12:54: Rate: Titrate, Start Dose: 0.2 microgram/ kg/hr, Titration: 0.1 microgram/ kg/hr every 30 min, Goal(s): RASS 0, Max Dose: 1.5 microgram/ kg/hr, Route: IV, Dosing Weight 45.455 kg, Total Volume: 100, Start date: 10/26/18 7:54:00 CDT, Durati... Saline No Notes: Memoria Flush 0.9% - (Same as: l 12:45: BD [place] 00 Posiflush) Nystatin No Notes: Memoria 100 UNT/MG - (Same l Topical 12:45: as:Mycosta Herm maria e Powder 00 tin, Nilstat) For external use only. Ativan No Notes: Memoria 6-29 (Same as: l 11:19: Ativan) [place] 00 Haldol No Notes: Memoria 6-29 (Same as: l 11:11: Haldol) [place] 00 Versed No 5 mg, Memoria 6-29 Route: l 10:45: IVP, ONCE, [place] kg, Start date: 10/26/18 5:45:00 CDT, Stop date: 10/26/18 5:45:00 CDT Ativan No 2 mg, Memoria 6 Route: l 10:42: IVP, Drug form: INJ, Q6H, kg, PRN Anxiety, Start date: 10/26/18 5:42:00 CDT, Duration: 30 day, Stop date: 11/25/18 5:41:00 CDT Ativan No 2 mg, Memoria 6 Route: PO, l 10:41: Drug form: [place] 00 TAB, TID, kg, PRN Anxiety, Start date: 10/26/18 5:41:00 CDT, Duration: 30 day, Stop date: 11/25/18 5:40:00 CDT Saline No Notes: Memoria Flush 0.9% - (Same as: l 10:23: BD [place] 00 Posiflush) Haldol No 2.5 mg, Memoria 6-29 Route: IM, l 09:21: ONCE, kg, [place] 00 Start date: 10/26/18 4:21:00 CDT, Stop date: 10/26/18 4:21:00 CDT Haldol No 5 mg, Memoria 6 Route: IM, l 09:20: ONCE, kg, [place] 00 Priority: STAT, Start date: 10/26/18 4:20:00 CDT, Stop date: 10/26/18 4:20:00 CDT Versed 2018-0 No 3 mg, Memoria 10-26 Route: IM, l 09:20: ONCE, kg, [place] 00 Start date: 10/26/18 4:20:00 CDT, Stop date: 10/26/18 4:20:00 CDT Versed 2018-0 No 3 mg, Memoria 10-26 Route: l 09:18: IVP, ONCE, [place] 00 kg, Priority: STAT, Start date: 10/26/18 4:18:00 CDT, Stop date: 10/26/18 4:18:00 CDT Ketamine 2019-0 No Notes: Memoria 10-26 (Same as: l 07:07: keTALAR) [place] 00 Vital Signs Vital Name Observation Time Observation Value Comments Source Respitory Rate 2018-12-01 17:30:00 Memori al [place] Systolic (mm Hg) 2018-12-01 17:30:00 Andres rial [place] Diastolic (mm Hg) 2018-12-01 17:30:00 Mem orial [place] Temperature Oral (F) 2018-12-01 17:30:00 97.7 F [facility] [place] Heart Rate 2018-12-01 17:30:00 [facility] [place] Heart Rate 2018-12-01 13:14:00 [facility] [place] Temperature Oral (F) 2018-12-01 13:14:00 98.2 F [facility] [place] Systolic (mm Hg) 2018-12-01 13:14:00 Andres rial [place] Diastolic (mm Hg) 2018-12-01 13:14:00 Mem orial [place] Respitory Rate 2018-12-01 13:14:00 Memori al [place] Heart Rate 2018-12-01 06:00:00 [facility] [place] Respitory Rate 2018-12-01 06:00:00 Memori al [place] Systolic (mm Hg) 2018-12-01 06:00:00 Andres rial [place] Diastolic (mm Hg) 2018-12-01 06:00:00 Mem orial [place] Temperature Oral (F) 2018-12-01 06:00:00 97.2 F [facility] [place] Height 2018-11-30 07:44:00 165.1 cm [facility] [place] Weight 2018-11-30 07:44:00 [facility] [place] BMI Calculated 2018-11-30 07:44:00 Memori al [place] Temperature Oral (F) 2018-11-23 00:48:00 97.9 F [facility] [place] Heart Rate 2018-11-23 00:48:00 [facility] [place] Respitory Rate 2018-11-23 00:48:00 Memori al [place] Systolic (mm Hg) 2018-11-23 00:48:00 Andres rial [place] Diastolic (mm Hg) 2018-11-23 00:48:00 Mem orial [place] Heart Rate 2018-11-22 20:18:00 [facility] [place] Respitory Rate 2018-11-22 20:18:00 Memori al [place] Systolic (mm Hg) 2018-11-22 20:18:00 Andres rial [place] Diastolic (mm Hg) 2018-11-22 20:18:00 Mem orial [place] Temperature Oral (F) 2018-11-22 20:18:00 98.1 F [facility] [place] Temperature Oral (F) 2018-11-22 16:20:00 97.8 F [facility] [place] Systolic (mm Hg) 2018-11-22 16:20:00 Andres rial [place] Diastolic (mm Hg) 2018-11-22 16:20:00 Mem orial [place] Heart Rate 2018-11-22 16:20:00 [facility] [place] Respitory Rate 2018-11-22 16:20:00 Memori al [place] Weight 2018-11-20 17:58:00 [facility] [place] BMI Calculated 2018-11-20 17:58:00 Memori al [place] Height 2018-11-20 17:58:00 165.1 cm [facility] [place] Height 2018-11-17 07:24:00 165.1 cm [facility] [place] Weight 2018-11-17 07:24:00 [facility] [place] BMI Calculated 2018-11-17 07:24:00 Memori al [place] Weight 2018-11-17 03:15:00 [facility] [place] BMI Calculated 2018-11-17 03:15:00 Memori al [place] Height 2018-11-17 03:15:00 165.1 cm [facility] [place] Systolic (mm Hg) 2018-11-05 20:41:00 Andres rial [place] Diastolic (mm Hg) 2018-11-05 20:41:00 Mem orial [place] Respitory Rate 2018-11-05 20:41:00 Memori al [place] Heart Rate 2018-11-05 20:41:00 [facility] [place] Temperature Oral (F) 2018-11-05 20:41:00 98.6 F [facility] [place] Heart Rate 2018-11-05 16:53:00 [facility] [place] Temperature Oral (F) 2018-11-05 16:44:00 98.9 F [facility] [place] Heart Rate 2018-11-05 16:44:00 [facility] [place] Respitory Rate 2018-11-05 16:44:00 Memori al [place] Systolic (mm Hg) 2018-11-05 16:44:00 Andres rial [place] Diastolic (mm Hg) 2018-11-05 16:44:00 Mem orial [place] Temperature Oral (F) 2018-11-05 13:03:00 98.8 F [facility] [place] Respitory Rate 2018-11-05 13:03:00 Memori al [place] Systolic (mm Hg) 2018-11-05 13:03:00 Andres rial [place] Diastolic (mm Hg) 2018-11-05 13:03:00 Mem orial [place] Height 2018-10-30 12:04:00 172.72 cm [facility] [place] Weight 2018-10-30 12:04:00 [facility] [place] Weight 2018-10-27 01:35:00 [facility] [place] BMI Calculated 2018-10-27 01:35:00 Memori al [place] Height 2018-10-27 01:35:00 172.72 cm [facility] [place] Weight 2018-10-26 13:00:00 [facility] [place] BMI Calculated 2018-10-26 13:00:00 Memori al [place] Height 2018-10-26 13:00:00 167.64 cm [facility] [place] Procedures This patient has no known procedures. Encounters Start End Encounter Admission Attending Care Care Encounter Source Date/Time Date/Time Type Type Clinicians Facility Department ID 2018-11-30 Inpatient U [facility] [id number] [facility] 02:23:00 2018-11-16 Inpatient [facility] [id number] [facility] H 22:55:57 2020-02-03 2020-02-03 Orders Doctor TREVIN [id number] 00:00:00 00:00:00 Only Unassigned[id number] 2019-12-19 2019-12-19 Orders Doctor TREVIN [id number] 00:00:00 00:00:00 Only Unassigned, [id number] [id number] 2019-01-17 2019-01-17 Patient Lisha Prabhakar [id number] 00:00:00 00:00:00 Outreach [place] [id number] [place] [id number] 2018-12-19 2018-12-19 Patient Lisha Prabhakar [id number] 00:00:00 00:00:00 Outreach [place] [id number] [place] [id number] 2018-11-30 2018-12-01 Outpatient Jae [facility] [id number] 02:23:00 15:17:00 Rolly Ali 15 2018-11-16 2018-11-22 Outpatient oJe [facility] [id number] 22:08:00 21:05:00 Marcela 00 Abril 2018-11-17 2018-11-16 Inpatient U [facility] [id number] MH 00:33:00 22:08:00 2018-10-26 2018-11-05 Outpatient Ritika [facility] [id number] 00:57:22 19:45:00 Amrou 00 2018-10-26 2018-10-26 Inpatient U [facility] [id number] MH 05:23:00 00:57:00 Results Test Description Test Time Test Comments Results Result Comments Source ER SCREEN FOR HIV 1/2 2020-07-03 22:45:00 Test Item Value Reference Range Interpretation Comme nts HIV 1/2 AB (test code = SCRN NEGATIVE NEGATIVE This test is used for SCREENING HIV) purposes only. All reactive results are prelimenary and confirmation results will fo llow. CARBAMAZEPINE,[id number] 21:09:00 Test Item Value Reference Range Interpretation Comments CARBAMAZ (test code = CARBAMAZ) 5 UG/ML 4-12 COVID SYMPTOMATIC ER [id number] 21:05:00 Test Item Value Reference Range Interpretation Comments CORONAVIRUS (COVID-19)BY PCR (test NEGATIVE code = QSD86AGU) INFLUENZA [id number] 20:40:00 Test Item Value Reference Range Interpretation Comments FLU A (test code = FLU A) NEGATIVE NEGATIVE FLU B (test code = FLU B) NEGATIVE NEGATIVE FLU INTERNAL POSITIVE CNTRL (test PASS PASS code = FLU IPC) INFLUENZA LOT # (test code = FLULOT) [id number] INFLUENZA EXPIRATION DATE (test code 96500932 = FLUEXP) URINE DRUG [id number] 19:04:00 Test Item Value Reference Range Interpretation Comments AMPHET (test code = NEGATIVE NEGATIVE This is an unconfirmed BAMP) screening. Res ult are to be used for medical purposes (treat ment) only. Not inte nded for non-medical pur poses. Cut-off concent ration for a positive result for each drug: Amphetamine - 1 ,000 ng/ml Barbitura te - 200 ng/ml Benzodiaz epine - 200 ng/ml Canna binoids - 50 ng/ml Coca ine - 300 ng/ml Opiat es - 300 ng/ml PCP - 25 ng/ml BARBITURATES (test NEGATIVE NEGATIVE code = BBAR) BENZO (test code = NEGATIVE NEGATIVE BBENZ) CANNABS (test code = POSITIVE NEGATIVE A BCANN) COCAINE (test code = NEGATIVE NEGATIVE BCOC) OPIATES (test code = NEGATIVE NEGATIVE BOPI) PCP (test code = NEGATIVE NEGATIVE BMTPCP) [id number] 18:45:00 Test Item Value Reference Range Interpretation Comments SODIUM (test code 141 MMOL/L 137-145 = NA) K+ (test code = 4.2 MMOL/L 3.5-5.1 KSERUM) CHLORIDE (test 102 MMOL/L 98-107 code = CL) CO2 (test code = 25 MMOL/L 22-30 CO2) BUN (test code = 13 MG/DL 9-20 BUN) CREA (test code = 0.6 MG/DL 0.8-1.5 L CREA) GLUCOSE (test code 110 MG/DL 70-99 H Fasting glucose = GLUCOSE) normal <100 MG/ DL- [place] recommendation* * CALCIUM (test code 9.4 MG/DL 8.4-10.2 = CABLOOD) TOTPROT (test code 8.5 G/DL 6.3-8.2 H = TOTPROT) ALBUMIN (test code 5.3 G/DL 3.5-5.0 H = ALBSERUM) BILITOT (test code 0.5 MG/DL 0.2-1.3 = BILITOT) AST (test code = 26 U/L 15-46 AST) PHOSALK (test code 95 U/L 38-126 = PHOSALK) ALTV (test code = 23 U/L 13-69 ALTV) GFR (test code = 172 A GFR of >9 0 GFR) mL/min/1.73m2 mL/min/1.73m2 is considered norm al. The GFR calcula tion on patients ove r 70 years of age is not validated by e foot orthopedist an d may not represent t he patients true r enal function. [id number] 18:25:00 Test Item Value Reference Range Interpretation Comments WBC (test code = 16.4 K/UL 3.5-10.9 H WBC) RBC (test code = 4.36 M/UL 4.3-5.7 RBC) HGB (test code = 13.8 G/DL 13.0-17.9 HGB) HCT (test code = 39.8 % 38-52 HCT) MCV (test code = 91.3 FL 80-98 MCV) MCH (test code = 31.7 PG 28-32 MCH) MCHC (test code = 34.7 G/DL 32.5-36.5 MCHC) RDW (test code = 12.2 % 11.5-14.5 RDW) PLT (test code = 213 K/UL 150-450 PLT) MPV (test code = 11.4 FL 7.4-10.4 H MPV) MANDIFF (test code = NO MANDIFF) SCAN (test code = NO SCAN) NEUT% (test code = 81.6 % 40-75 H NEUT%) LYMPH% (test code = 10.2 % 24-44 L LYMPH%) MONO% (test code = 6.4 % 0-13 MONO%) EOS% (test code = 0.9 % 0-4 EOS%) BASO % (test code = 0.5 % 0-2 BASO%) IG (test code = IG) 0 % 0-1 IG% (test code = 0.4 % 0-1 IG% = Metam yelocytes, IG%) Myelocytes, and Promyelocytes. (Immature neutr ophils not including " bands".) > 3% IG indic ates risk of sepsis NRBC% (test code = 0 /100 WBC NRBC%) ABS NEUT (test code 13.4 K/UL 1.2-7.2 H = NEUT) CHEM [id number] 16:03:002.0[facility]ARDIAC [id number] 10:22:0082[facility] HermannCHEM [id number] 10:22:000.3[facility] HermannCHEM [id number] 10:22:0025[facility] HermannCHEM [id number] 10:22:33078 [facility]annCHEM [id number] 10:22:008.2[facility]annCHEM PANEL 2018-11-30 10:22:003.4[facility]annCHEM [id number] 10:22:006.7[facility]annCHEM [id number] 10:22:0019[facility]annCHEM [id number] 10:22:0019[facility]annCHEM [id number] 10:22:0072[facility]annCHEM [id number] 10:22:26234Mwociwwq HermannCHEM [id number] 10:22:0087 [facility]annCHEM [id number] 10:22:003.5[facility]annCHEM PANEL 2018-11-30 10:22:0010[facility]annCHEM [id number] 10:22:000.60[facility]annCHEM [id number] 10:22:97207Hrjlgzdz HermannCHEM [id number] 10:22:0013.5[facility] HermannCHEM [id number] 10:22:00 Test Item Value Reference Range Interpretation Comments A/G Ratio (test code = A/G Ratio) 1.0 1 0.7-1.6 [facility]annCHEM [id number] 10:22:003.3[facility] HermannCHEM PANEL 2018-11-30 10:22:00 Test Item Value Reference Range Interpretation Comments B/C Ratio (test code = B/C Ratio) 17 1 6-25 [facility] [id number] 10:22:000.3[facility] HermannHEMATOLOGY 2018-11-30 10:22:006.9[facility] WmbgmawLYNPOXTYED3437-30-43 10:22:0052.8[facility] TkyjzktFEWSQYLXCX5740-95-22 10:22:0036.3[facility] IvtvgtlSCQOEKEAFE1100-37-54 10:22:002.9[facility] VcokmouGTXCTLXARF1819-51-62 10:22:004.2[facility] TJMZJLKIUJ7948-20-56 10:22:000.5[facility] YmlimpuOBHILHUJAP3192-21-49 10:22:003.5 [facility] PgeiasgJOJKWTJJFT6324-13-82 10:22:000.5[facility]annHEMATOLOGY 2018-11-30 10:22:0035.6[facility] KdybsavFKQNZXEXFT5510-58-32 10:22:0034.4[facility] JlndlrcGGJLCBKROC0851-08-70 10:22:0012.2[facility] JeyweytIBWCFUIIIL4969-96-69 10:22:0087.1[facility] SqxeskrWJDSJNQVRT5045-50-77 10:22:00 Test Item Value Reference Range Interpretation Comments MCH (test code = MCH) 31.0 pg 27.0-31.0 [facility] BqeyvgpPNTJKVVSHQ1066-07-66 10:22:89938Zwhvuyhh HermannHEMATOLOGY 2018-11-30 10:22:008.7[facility] DpttjrvBTXZMEZIWV8440-80-66 10:22:0013.9[facility] WcppuepZIRZMHBHNO1294-75-64 10:22:007.9[facility] XbjuriaHSGCXCHNBM3510-49-37 10:22:003.95[facility]annCHEM QGMEY9663-62-84 02:16:001.7[facility]annCHEM ZALLO6326-04-47 21:13:002.2[facility]annCHEM ADVZT5442-43-06 17:48:002.4 [facility] CRRDE6490-85-34 14:16:00Negative (11/18/18 9:16 AM) [facility] HEXBY7353-91-73 14:16:00Negative (11/18/18 9:16 AM) [facility] JGQEK3363-81-51 14:16:001[facility] ZEYUO8983-83-51 14:16:00Negative *NA*(11/18/18 9:16 AM)[facility] NNKIH2022-56-86 14:16:00Negative (11/18/18 9:16 AM)[facility] LKBAP4685-43-40 14:16:00<1.0[facility] TAXGV3336-80-84 14:16:00Light Yellow *NA*(11/18/18 9:16 AM)[facility] STOOL 2018-11-18 14:16:00Clear (11/18/18 9:16 AM)[facility] STOOL 2018-11-18 14:16:00 Test Item Value Reference Range Interpretation Comments UA Spec Grav (test code = UA Spec 1.005 1 Grav) [facility] TZMBZ0641-49-83 14:16:00 Test Item Value Reference Range Interpretation Comments UA pH (test code = UA pH) 6.0 1 5.0-8.0 [facility]CHE[facility] SOXFY1091-11-13 08:58:004.7[facility]annCHEM PANEL 2018-11-18 08:58:001.9[facility] PcgmfllURNVAPRYWJBU1266-16-70 08:58:0013.5 [facility] IwmpzldAZCOXDRVKTUC2468-77-79 08:58:72184Abzcmbtz HermannELECTROLYTES 2018-11-18 08:58:44751Gidwblgc GksghdpLKPDFAETJSXL1999-76-23 08:58:0012[facility] DfumeolQNOGNAWNVRRH8122-82-76 08:58:0023[facility] RhedkgeNPSAAYJOWGSP5187-80-87 08:58:003.5[facility] NlalwmsCICBFRUENWTT5908-31-07 08:58:46999Xrmpbiud [place] KJSDZHUWBGCV7696-56-05 08:58:000.67[facility] WzhcjovAKQSKOCUEDDN8366-78-60 08:58:09285Lgilkvbg JbchicbRCJSXTUCRUYE6357-44-59 08:58:009.1[facility] BYURBMOOCX3586-84-95 08:58:003.5[facility] BujewjxTUSNTHKYSV0478-95-58 08:58:007.7 [facility] AfjdurlAPPKTEHZIT7785-56-89 08:58:0032.4[facility] HermannHEMATOLOGY 2018-11-18 08:58:002.8[facility] XswfyqeKURBATFXQE8359-91-46 08:58:004.8[facility] HllnynmBAJUTCPCDO9916-27-55 08:58:000.7[facility] ZhpaotiCVHCKFKCEX3492-57-08 08:58:000.1[facility] ZsvvjpoDLRWFNHKPZ3737-09-76 08:58:000.3[facility] FTIJDCNHOU9492-57-06 08:58:000.7[facility] WyztzsuVEXNRKKPJB0518-22-97 08:58:00 55.7[facility] ZuappvsTJOMFDBWCY6315-59-23 08:58:009.4[facility] HermannHEMATOLOGY 2018-11-18 08:58:42961Wwukeylb NtltswgNWUSLJKBAY4830-87-38 08:58:0013.3[facility] AnfrtutYVFQFAJUVC0863-54-87 08:58:0013.1[facility] BqrutjjWQMJDDSOCT5234-77-08 08:58:004.24[facility] IfqoupxGEVCGXQGAX8914-90-39 08:58:008.7[facility] MQXRSLZOQT9377-55-46 08:58:0035.2[facility] VedgjviHYPFJEGCZP6896-52-43 08:58:00 Test Item Value Reference Range Interpretation Comments MCH (test code = MCH) 30.8 pg 27.0-31.0 [facility] GyiwezvEQHORHXAKU3640-93-78 08:58:0087.6[facility] HermannHEMATOLOGY 2018-11-18 08:58:0037.1[facility] HermannCHEM AAUCP6438-43-00 06:25:0072[facility] HermannCHEM XKJCT5392-73-54 06:25:54971Zkrorqnl HermannCHEM SEPGZ3868-85-39 06:25:00 Test Item Value Reference Range Interpretation Comments A/G Ratio (test code = A/G Ratio) 1.0 1 0.7-1.6 [facility] HermannCHEM LQASL2597-71-11 06:25:004.0[facility] HermannCHEM PANEL 2018-11-17 06:25:000.4[facility] HermannCHEM TUKBZ3085-50-24 06:25:000.1[facility] HermannCHEM HHBDX6626-69-90 06:25:000.5[facility] HermannCHEM JISIT1760-46-74 06:25:0026[facility] HermannCHEM AKJEL7758-58-22 06:25:0094[facility] HermannCHEM JIROU5730-96-42 06:25:0028[facility] HermannCHEM XCTUB6371-09-38 06:25:003.9 [facility]annCHEM GTMVY4027-65-60 06:25:007.9[facility] HermannCHEM PANEL 2018-11-17 06:25:0011.0[facility] HermannCARDIAC PVGHOGO6972-55-06 04:26:000.09 [facility] HermannCARDIAC VCQBERB4066-89-61 04:26:0085[facility] HermannCHEM PANEL 2018-11-17 04:26:40621Heiikhrb HermannCHEM YBXCC4865-06-83 04:26:0026[facility] HermannCHEM UEQDA9424-73-59 04:26:76137Dygqjnkx HermannCHEM TSZNX6695-71-45 04:26:0016.5[facility] HermannCHEM NYFXV4370-06-04 04:26:009.2[facility] HermannCHEM HJQWO6994-04-94 04:26:94143Bnzbwphk HermannCHEM AMDLP4110-68-00 04:26:000.75 [facility] HermannCHEM WLRVD8980-12-34 04:26:003.5[facility] HermannCHEM PANEL 2018-11-17 04:26:0015[facility] HermannCHEM ZBJRB5319-86-52 04:26:0099[facility] WkzdbhyIDWGWSVTPB4944-32-36 03:29:00 Test Item Value Reference Range Interpretation Comments INR (test code = INR) 1.06 1 0.85-1.17 [facility] RbuvameMFAMTEVCDQ0721-03-21 03:29:00 Test Item Value Reference Range Interpretation Comments PT (test code = PT) 13.6 s 12.0-14.7 [facility] PwdvfmvQFYKEMISYU3879-36-75 03:29:0010.1[facility] HermannHEMATOLOGY 2018-11-17 03:29:0012.9[facility] OvzsfwfQYUANTYWNM3554-84-52 03:29:00 Test Item Value Reference Range Interpretation Comments MCH (test code = MCH) 30.1 pg 27.0-31.0 [facility] YgmundxEPNXDEVXRN8285-96-56 03:29:0034.5[facility] HermannHEMATOLOGY 2018-11-17 03:29:0037.3[facility] IbpszkzHSHUDVYCGU9852-10-28 03:29:0087.3[facility] TbbyjbsUDZTTQLDGM1050-09-33 03:29:004.28[facility] CnnkdmiDMMUBNLQOK3852-72-58 03:29:0013.8[facility] QvtowxjOBUELDPOAX2304-20-58 03:29:56046Fwpwtzam [place] RUIBWFHNOO7167-02-04 03:29:009.1[facility] HfxafibHZYSDMGOLW3679-55-03 03:29:00 Test Item Value Reference Range Interpretation Comments PTT (test code = PTT) 32.3 s 22.9-35.8 [facility] GotdbshMZFDZJPTTI9772-40-20 03:29:0060.4[facility] HermannHEMATOLOGY 2018-11-17 03:29:000.8[facility] NwhuldkZQUUIRAYAI8483-04-68 03:29:002.7[facility] NubawjwTXNDDAWSBF0834-72-77 03:29:0029.3[facility] DgjohqmRBMWBTWAVP2389-16-91 03:29:006.8[facility] ApfhrogNAWCVOLTMC8717-20-16 03:29:003.0[facility] LTNWTBPSWV0877-33-67 03:29:000.7[facility] ToqkepxMWMAXIKDDU9797-60-80 03:29:006.1 [facility] MzoitxpQTJQHIHJAQ9873-77-33 03:29:000.1[facility] HermannHEMATOLOGY 2018-11-17 03:29:000.3[facility] DbmuupgQYLDIPTHOW5533-85-40 14:21:000.6[facility] ZxgcgzuNTEAZOHVRH5894-11-35 14:21:003.0[facility] OwhutahRFNREKAHZH2446-30-89 14:21:006.5[facility] YgdgvqfTRTNZVENCA9921-41-86 14:21:0028.9[facility] EXGDZRXZDL2244-78-66 14:21:000.7[facility] GvhlkvtHPJVOZFAOZ0154-83-27 14:21:003.0 [facility] HpgeodbNNPITGCWEB6412-13-02 14:21:006.4[facility] HermannHEMATOLOGY 2018-11-04 14:21:000.1[facility] XdedvynBZLDXUNLAJ2151-24-73 14:21:000.3[facility] IdhaptoUDRBAKSNZM5306-30-71 14:21:0061.0[facility] ZlqyufcXZXMNDFTCE9909-19-80 14:21:004.13[facility] IpsxmbdPQVNYRQJJX7676-41-29 14:21:0010.4[facility] ZUAUXDQABP9155-09-84 14:21:0035.0[facility] SxxoynuQZGRXRBXKG5163-79-01 14:21:00 218[facility] JccwfamGEXXDEIMOW4273-21-73 14:21:0013.3[facility] HermannHEMATOLOGY 2018-11-04 14:21:0012.5[facility] IzttaobAESYCCPGPK3919-06-87 14:21:008.5[facility] XqcaehgWBRRMBETPO2244-20-62 14:21:0086.4[facility] GwiaminEEZAXWDDVG7062-60-13 14:21:0035.6[facility] FectbgqSMNQNRBIIP5164-97-91 14:21:00 Test Item Value Reference Range Interpretation Comments MCH (test code = MCH) 30.2 pg 27.0-31.0 [facility] HermannCHEM DVHKR1847-08-96 11:06:005.4[facility] HermannCHEM PANEL 2018-11-04 11:06:001.8[facility] HermannCHEM HHHOV6378-89-04 11:06:79861Pnephfrn HermannCHEM IAQRH3746-43-80 11:06:008.1[facility] HermannCHEM ZOXOH1721-46-82 11:06:11305Orggkprg HermannCHEM RSMGA1219-78-48 11:06:004.8[facility] HermannCHEM WNXZI3832-03-16 11:06:75716Qauewhdg HermannCHEM OIZMJ4226-71-38 11:06:0025 [facility] HermannCHEM WGLWT1723-79-35 11:06:0015[facility] HermannCHEM PANEL 2018-11-04 11:06:000.65[facility] HermannCHEM KCLQB5854-65-09 11:06:93466Sfrfvyxb HermannCHEM TGPES5045-68-24 11:06:0012.8[facility] HermannPARATHYROID PROFILE 2018-11-04 11:06:001.05[facility] HermannPARATHYROID DCKLBNF9044-88-26 11:06:00 1.05[facility] HermannCHEM GZRMF0380-11-99 09:35:001.8[facility] HermannCHEM PANEL 2018-11-03 09:35:004.2[facility] DueyyhiWLVCGLKXYIVP6432-05-79 09:35:0013.1 [facility] AeqqwrwPYFZHBUGCBXA1327-12-39 09:35:46939Cnxuzbsn HermannELECTROLYTES 2018-11-03 09:35:008.0[facility] WdbmeehWYTASAGSBWMS3575-43-19 09:35:94134Nhizrdlw HwenabdFQNJMYIEHXAE9127-43-56 09:35:0021[facility] AxtopksDXLOXCKQBLGX2098-34-44 09:35:0010[facility] CacqvacCTJCBRFWOWGZ5361-20-59 09:35:000.72[facility] DFGTUNOZJALX8648-87-15 09:35:0094[facility] AvlitggIJFRBCCINSYJ7646-39-01 09:35:00 142[facility] SvhtkmjSYPNIYWWKLGC2147-95-22 09:35:003.1[facility] HermannHEMATOLOGY 2018-11-03 09:35:000.2[facility] VzpmxdmBAYBQAXUAN7077-74-67 09:35:000.1[facility] PnwopqvMTNOCALMPX1552-71-41 09:35:0037.1[facility] EhgogeyVXQVLDKXLT2988-36-18 09:35:008.0[facility] NttwucjULBYDLQJWF9559-10-46 09:35:0051.3[facility] RQQWDCUQAA9575-22-78 09:35:000.7[facility] GxmthbfQYIYPGZWGM0328-72-27 09:35:003.1 [facility] VftnoazFFBMGKZVNK5806-53-87 09:35:002.7[facility] HermannHEMATOLOGY 2018-11-03 09:35:000.9[facility] GpsoijwBXXJYVGORS0657-52-37 09:35:004.3[facility] MhunsqgHNGSQEZQFV2685-61-93 09:35:008.5[facility] ZwhrzdhBOXAKMMCCZ6377-45-33 09:35:003.70[facility] KoiyktaLIUBIOHMCP5902-38-11 09:35:0011.3[facility] AZUVTEPJNM2083-23-79 09:35:0031.5[facility] PpcrucyVAGARPZBJK5216-27-14 09:35:00 9.4[facility] DakxgeeSNMXCUPNUT0467-84-69 09:35:0012.9[facility] HermannHEMATOLOGY 2018-11-03 09:35:08611Zhrqakvf FsbcpzfAIYDSTHAJE6247-12-23 09:35:0035.9[facility] HciplldBWBRYWYCNX7723-51-65 09:35:00 Test Item Value Reference Range Interpretation Comments MCH (test code = MCH) 30.5 pg 27.0-31.0 [facility] ZomncyhOORNBKTCFJ0553-35-12 09:35:0085.1[facility] HermannPARATHYROID EQLJUCL0493-79-31 09:35:001.08[facility] HermannPARATHYROID MUPBNGB0674-24-91 09:35:001.09[facility] HermannCHEM GONMH6313-26-26 08:48:004.1[facility] HermannCHEM KUHDT9483-15-64 08:48:001.5[facility] HermannCHEM BDJFS4674-32-49 08:48:74048 [facility] HermannCHEM GJQMR3706-81-14 08:48:008.9[facility] HermannCHEM PANEL 2018-11-02 08:48:0020[facility] HermannCHEM GJIJM2187-64-09 08:48:0014.0[facility] HermannCHEM YTFCS3637-76-97 08:48:000.62[facility] HermannCHEM SPUDT0119-46-64 08:48:007[facility] HermannCHEM DAAWY8627-39-81 08:48:003.0[facility] HermannCHEM DQGAN0257-17-50 08:48:06443Tuezrpnz HermannCHEM CNXGM5467-08-35 08:48:81221 [facility] HermannCHEM AELTJ1007-84-74 08:48:0098[facility] HermannCHEM PANEL 2018-11-02 08:48:003.6[facility] GxuwjkrCYUVPCXPMK3346-73-48 08:48:000.1[facility] PbaurvdWAIIFMPQGQ2419-52-26 08:48:000.7[facility] PnogqpwWZBHUDVRZN1568-55-27 08:48:003.5[facility] GdvnlonTHGRGOLVGI4834-42-43 08:48:004.4[facility] SRYUSHDBSC3941-31-12 08:48:008.5[facility] XxipbfpGFFBUWSGMD3430-85-80 08:48:00 35.2[facility] TnizigyUXRNBQYIUQ4409-93-60 08:48:0052.1[facility] HermannHEMATOLOGY 2018-11-02 08:48:000.3[facility] ZrewqdzSGUOUOUTWW2273-53-21 08:48:000.7[facility] FgbxpnfGSXJKYSLPV1247-58-10 08:48:003.0[facility] UrwupckGVNGDUOVOK9461-84-00 08:48:008.7[facility] EblozysEWZQBPDRWY8906-03-25 08:48:0013.0[facility] OFZSZAUSGH0610-36-67 08:48:44594Fnhxqkrh RwhgltlMSRGFCZATU3185-61-87 08:48:00 85.8[facility] FoqfuikIWBFCQARQL3127-42-39 08:48:00 Test Item Value Reference Range Interpretation Comments MCH (test code = MCH) 31.1 pg 27.0-31.0 [facility] XqkggqqFULASFITFY2281-63-99 08:48:0036.2[facility] HermannHEMATOLOGY 2018-11-02 08:48:0012.2[facility] PxqnjsoVEXUWSJGXR6024-98-20 08:48:0033.6[facility] LlhinbqHXPYOKZOFB2457-84-51 08:48:008.5[facility] XynvjmlLARIYZTZLV4970-18-60 08:48:003.92[facility] HermannPARATHYROID AEYSVJJ2597-06-01 08:48:001.15[facility] HermannPARATHYROID QCRPJLE2561-15-88 08:48:001.11[facility] HermannCHEM PANEL 2018-11-02 00:46:004.7[facility] HermannCHEM VTUMD0432-17-80 16:20:004.2[facility] GmrlrvxIHBOHZIJSG1980-64-60 08:26:001.3[facility] UwfafgzZBJIHCBZYY7948-89-42 08:26:00 Test Item Value Reference Range Interpretation Comments Rohith Sosa TND (test code = Rohith Tr 0730 1 TND) [facility]annCHEM AZYUV0998-88-62 15:08:000.3[facility] HermannURINE AND STOOL 2018-10-30 15:08:00<1.0[facility]annURINE AND GZUCT8773-04-49 15:08:00 Negative (10/30/18 10:08 AM)[facility]URINE AND DDDTO3979-59-80 15:08:00 Moderate *ABN*(10/30/18 10:08 AM)[facility]annURINE AND NJEEZ2168-11-18 15:08:00Small *ABN*(10/30/18 10:08 AM)[facility]annURINE AND GVLTY3812-66-07 15:08:001[facility]annURINE AND PDIQZ1943-80-35 15:08:001[facility] URINE AND WTXGS5508-66-48 15:08:00 Test Item Value Reference Range Interpretation Comments UA Spec Grav (test code = UA Spec 1.005 1 Grav) [facility]UR[facility] AND PVDWB8794-72-35 15:08:00 Test Item Value Reference Range Interpretation Comments UA pH (test code = UA pH) 6.0 1 5.0-8.0 [facility]UR[facility] AND BATZC8041-39-57 15:08:00Negative *NA*(10/30/18 10:08 AM) [facility] WHXPW6321-00-87 15:08:00Clear (10/30/18 10:08 AM) [facility] MBQQN0917-56-13 15:08:00Light Yellow *NA*(10/30/18 10:08 AM)[facility] HermannCHEM ICIMF2934-35-36 23:51:0094[facility] HermannCHEM PANEL 2018-10-28 23:51:0059[facility] QvceiqhFSUJFRJIWK9644-86-15 21:04:00Negative *NA*(10/28/18 4:04 PM)[facility]UR[facility] AND HVGLK8915-39-60 19:06:00Negative (10/28/18 2:06 PM)[facility]UR[facility] AND TRFAM0607-90-98 19:06:00Trace *ABN*(10/28/18 2:06 PM)[facility] AND FQOXJ1280-75-45 19:06:00None Seen (10/28/18 2:06 PM)[facility] AND TZUVS1513-02-26 19:06:00Negative *NA*(10/28/18 2:06 PM)[facility]UR[facility] AND MJYZN9572-09-96 19:06:00Negative (10/28/18 2:06 PM)[facility]UR[facility] AND CUZXJ5306-02-36 19:06:000.2[facility]UR[facility] AND RSOQK2492-33-60 19:06:00Negative (10/28/18 2:06 PM)[facility]UR[facility] AND GFNME6051-38-33 19:06:00Negative (10/28/18 2:06 PM)[facility] AND IVLPZ5291-93-74 19:06:00Negative *NA*(10/28/18 2:06 PM)[facility]UR[facility] AND JJOXV1614-76-37 19:06:00Clear (10/28/18 2:06 PM)[facility] URINE AND QZDWF5332-82-45 19:06:00 Test Item Value Reference Range Interpretation Comments UA pH (test code = UA pH) 5.5 1 5.0-8.0 [facility]UR[facility] AND LQSAH5703-03-58 19:06:00 Test Item Value Reference Range Interpretation Comments UA Spec Grav (test code = UA Spec 1.010 1 Grav) [facility] SLIAB9417-00-76 19:06:00Yellow *NA*(10/28/18 2:06 PM) [facility] GCOKF2606-78-94 19:06:00<1[facility]UR[facility] AND IJYML4876-03-94 19:06:001[facility] HermannDRUG FEYAIK2548-94-83 21:34:00See Note (10/26/18 4:34 PM)[facility] HermannDRUG LNZIYG6043-18-69 21:34:00Negative *NA*(10/26/18 4:34 PM)[facility] HermannDRUG YFSDSA5726-68-59 21:34:00Negative *NA*(10/26/18 4:34 PM)[facility] HermannDRUG XJUXTZ5507-51-89 21:34:00Negative *NA*(10/26/18 4:34 PM)[facility] HermannDRUG ZUVSXV0835-33-28 21:34:00Negative *NA*(10/26/18 4:34 PM)[facility] HermannDRUG NLTEJE2228-03-89 21:34:00Positive *ABN*(10/26/18 4:34 PM)[facility] HermannDRUG KFGOFB7937-25-41 21:34:00Negative *NA*(10/26/18 4:34 PM)[facility] HermannDRUG QZJNDR3394-42-07 21:34:00Negative *NA*(10/26/18 4:34 PM)[facility]UR[facility] AND XBKTP2864-69-20 21:34:00Clear (10/26/18 4:34 PM)[facility]UR[facility] AND WYOQL6661-95-33 21:34:00 Test Item Value Reference Range Interpretation Comments UA Spec Grav (test code = UA Spec 1.026 1 Grav) [facility] ALAEX0678-45-64 21:34:00Yellow *NA*(10/26/18 4:34 PM) [facility] AND XBDSO5447-88-15 21:34:00Negative *NA*(10/26/18 4:34 PM) [facility] BEYWB8384-27-02 21:34:00 Test Item Value Reference Range Interpretation Comments UA pH (test code = UA pH) 5.0 1 5.0-8.0 [facility] AND GYQID6764-50-56 21:34:00<1.0[facility]UR[facility] AND STEBN6391-08-74 21:34:00Negative (10/26/18 4:34 PM)[facility] NKQWE5973-11-06 21:34:00<1[facility]UR[facility] AND PYPHK9101-64-60 21:34:00 Negative (10/26/18 4:34 PM)[facility] WFLUG6263-29-44 21:34:00 Negative (10/26/18 4:34 PM)[facility] AND UHQBD6968-14-99 21:34:001 [facility] HermannBACTERIAL - VIDDZZGT9523-71-52 16:26:00Negative (10/26/18 11:26 AM)[facility] HermannCHEM LLQGS8137-79-49 16:26:0039.0[facility] HermannCHEM PANEL 2018-10-26 16:26:00 Test Item Value Reference Range Interpretation Comments A/G Ratio (test code = A/G Ratio) 0.9 1 0.7-1.6 [facility]annCHEM UDGEK7170-87-93 16:26:003.7[facility] HermannCHEM PANEL 2018-10-26 16:26:0091[facility] HermannCHEM CMQTA9053-59-80 16:26:000.3[facility] HermannCHEM FEQIX4637-89-90 16:26:0025[facility] HermannCHEM ZZASE3136-94-92 16:26:000.1[facility] HermannCHEM TXPYC0301-20-85 16:26:000.2[facility] HermannCHEM XWBRV8265-82-89 16:26:0028[facility] HermannCHEM SNOQY0400-50-56 16:26:003.5 [facility]annCHEM OCNRQ7440-40-09 16:26:007.2[facility] HermannCHEM PANEL 2018-10-26 16:26:0058[facility] HermannCHEM TRBAV4224-67-67 16:26:0062[facility] HermannCHEM JPHQB5774-18-28 10:46:00 Test Item Value Reference Range Interpretation Comments A/G Ratio (test code = A/G Ratio) 1.0 1 0.7-1.6 [facility]annCHEM SIMYP1078-54-30 10:46:00 Test Item Value Reference Range Interpretation Comments B/C Ratio (test code = B/C Ratio) 27 1 6-25 [facility]annCHEM YBSDU1195-87-11 10:46:003.9[facility] HermannCHEM PANEL 2018-10-26 10:46:0030[facility] HermannCHEM DIAQP0777-69-42 10:46:000.3[facility] HermannCHEM WKEBU6940-56-71 10:46:0097[facility] HermannCHEM VAGZY7739-74-67 10:46:004.0[facility] HermannCHEM CNJQV2658-77-03 10:46:0023[facility] HermannCHEM PVHZN7703-23-98 10:46:007.9[facility] HermannCHEM RJPMD9211-65-18 10:46:00<0.1 [facility] ExdaxmjMWJAMX4600-52-41 10:46:00 Test Item Value Reference Range Interpretation Comments VLDL (test code = VLDL) 24 1 [facility] EdahsegLYHZSI3337-53-00 10:46:0078[facility] JtjwzukDCOMYH2796-25-45 10:46:09675Lumhbpqc YxzgywwKYUBCE3543-89-56 10:46:0034[facility] HermannLIPIDS 2018-10-26 10:46:17168Fpfbadwv PfuxamhACIUOJ9998-81-13 10:46:00 Test Item Value Reference Range Interpretation Comments CHD Risk (test code = CHD Risk) 4.00 1 4.00-7.30 [facility] WDPMMCMZV8763-60-24 10:46:005.4[facility]
--- NOTE | 2020-08-12 13:30 | ER ---
Nurse's Notes [facility] Name: Lucien Calvillo Jr Age: 30 yrs Sex: Male : 1990 Arrival Date: 08/12/2020 Time: 13:18 Bed 2 Private MD: Diagnosis: Epilepsy and recurrent seizures Presentation: 08/12 13:12 Chief complaint: EMS states: called out by PD for possible seizure. Pt was driving and sv the ex-girlfriend told PD that he had a seizure. Pt reports that he did not have a seizure and has been awake the entire time. He has been taking his seizure medications as prescribed. BS-[id number]. Coronavirus screen: Client denies travel out of the [place] in the last 14 days. At this time, the client does not indicate any symptoms associated with coronavirus-19. Ebola Screen: No symptoms or risks identified at this time. Risk Assessment: Do you want to hurt yourself or someone else? Patient reports no desire to harm self or others. Onset of symptoms was August 12, 2020. 13:12 Method Of Arrival: EMS: [facility] sv 13:12 Acuity: GINNY 3 sv 13:23 Initial Sepsis Screen: Does the patient meet any 2 criteria? No. Patient's initial sv sepsis screen is negative. Does the patient have a suspected source of infection? No. Patient's initial sepsis screen is negative. Triage Assessment: 13:20 General: Appears in no apparent distress. comfortable, well groomed, well developed, sv Behavior is calm, cooperative, appropriate for age. Pain: Denies pain. Neuro: Level of Consciousness is awake, alert, obeys commands, Oriented to person, place, time, situation, Moves all extremities. Full function Speech is normal. Respiratory: Airway is patent Respiratory effort is even, unlabored, Respiratory pattern is regular, symmetrical. Derm: Skin is intact, Skin is pink, warm \T\ dry. Historical: - Allergies: 13:20 Amoxicillin; sv - PMHx: 13:20 Bipolar disorder; CVA; MELAS; Seizures; sv - PSHx: 13:20 None; sv - Immunization history:: Adult Immunizations up to date. - Social history:: Smoking status: . Screenin:21 Abuse screen: Denies threats or abuse. Denies injuries from another. Nutritional sv screening: No deficits noted. Tuberculosis screening: No symptoms or risk factors identified. Fall Risk None identified. Assessment: 13:53 Reassessment: Patient appears in no apparent distress at this time. No changes from previously documented assessment. Patient and/or family updated on plan of care and expected duration. Pain level reassessed. Patient is alert, oriented x 3, equal unlabored respirations, skin warm/dry/pink. Vital Signs: 13:23 BP 118 / 74; Pulse 73; Resp 16; Temp 98.6; Pulse Ox 100% ; Pain 0/10; sv [place] Coma Score: 13:20 Eye Response: spontaneous(4). Verbal Response: oriented(5). Motor Response: obeys sv commands(6). Total: 15. ED Course: 13:18 Patient arrived in ED. sv 13:18 Susie Cox RN is Primary Nurse. sv 13:20 Triage completed. sv 13:20 Arm band placed on. sv 13:21 Patient has correct armband on for positive identification. Bed in low position. Call sv light in reach. Side rails up X2. Seizure precautions initiated. Pulse ox on. NIBP on. Door closed. Head of bed elevated. 13:23 [facility] 13:23 Jp Rios MD is Attending Physician. [facility] 13:53 No provider procedures requiring assistance completed. Patient did not have IV access sv during this emergency room visit. Administered Medications: No medications were administered Outcome: 13:30 Discharge ordered by . [facility] 13:53 Patient left the ED. sv 13:53 Discharged to home ambulatory. sv 13:53 Condition: stable 13:53 Discharge instructions given to patient, Instructed on discharge instructions, follow up and referral plans. Demonstrated understanding of instructions, follow-up care. Signatures: Susie Cox RN RN Kareem Chacon PA PA [facility]
--- NOTE | 2020-08-12 13:31 | EDPHYS ---
Physician Documentation [facility] Name: Lucien Calvillo Jr Age: 30 yrs Sex: Male : 1990 Arrival Date: 08/12/2020 Time: 13:18 Bed 2 Private MD: ED Physician Jp Rios HPI: 08/12 13:24 This 30 yrs old Male presents to ER via EMS with complaints of Probable jmm Seizure. 13:24 This is a 30 year old male with a history of epilepsy, melas, bipolar that presents to [facility] the ED with no complaints. Patient was told he would need evaluation in the ED for suspected seizure. Patient states his tegretol levels are therapeutic and visited his pcp earlier today. Denies pain, denies headaches. . Historical: - Allergies: 13:20 Amoxicillin; sv - PMHx: 13:20 Bipolar disorder; CVA; MELAS; Seizures; sv - PSHx: 13:20 None; sv - Immunization history:: Adult Immunizations up to date. - Social history:: Smoking status: . ROS: 13:24 Constitutional: Negative for fever, chills, and weight loss, Cardiovascular: Negative [facility] for chest pain, palpitations, and edema, Respiratory: Negative for shortness of breath, cough, wheezing, and pleuritic chest pain, Abdomen/GI: Negative for abdominal pain, nausea, vomiting, diarrhea, and constipation, Neuro: Negative for headache, weakness, numbness, tingling, and seizure. 13:24 All other systems are negative. Exam: 13:24 Constitutional: This is a well developed, well nourished patient who is awake, alert, jmm and in no acute distress. Head/Face: atraumatic. Eyes: EOMI, no conjunctival erythema appreciated ENT: Moist Mucus Membranes Neck: Trachea midline, Supple Chest/axilla: Normal chest wall appearance and motion. Cardiovascular: Regular rate and rhythm. No edema appreciated Respiratory: Normal respirations, no respiratory distress appreciated Abdomen/GI: Non distended, soft Back: Normal ROM Skin: General appearance color normal MS/ Extremity: Moves all extremities, no obvious deformities appreciated, no edema noted to the lower extremities Neuro: Awake and alert, normal gait Psych: Behavior is normal, Mood is normal, Patient is cooperative and pleasant Vital Signs: 13:23 BP 118 / 74; Pulse 73; Resp 16; Temp 98.6; Pulse Ox 100% ; Pain 0/10; sv [place] Coma Score: 13:20 Eye Response: spontaneous(4). Verbal Response: oriented(5). Motor Response: obeys sv commands(6). Total: 15. MDM: 13:24 Patient medically screened. fatmata 13:28 Data reviewed: vital signs, nurses notes. Counseling: I had a detailed discussion with fatmata the patient and/or guardian regarding: the historical points, exam findings, and any diagnostic results supporting the discharge/admit diagnosis, the need for outpatient follow up, to return to the emergency department if symptoms worsen or persist or if there are any questions or concerns that arise at home. ED course: Patient is alert and non toxic in appearance in the ED. Does not want an evaluation. Patient has no deficits appreciated. Is not post ictal. Patient was otherwise given strict return precautions. . Administered Medications: No medications were administered Disposition: 08/13 06:54 Co-signature as Attending Physician, Jp Rios MD I agree with the assessment and kdr plan of care. Disposition: 08/12/20 13:30 Discharged to Home. Impression: Epilepsy and recurrent seizures. - Condition is Stable. - Discharge Instructions: Seizure, Adult. - Medication Reconciliation Form, Thank You Letter, Antibiotic Education, Prescription Opioid Use form. - Follow up: Private Physician; When: 2 - 3 days; Reason: Recheck today's complaints, Continuance of care, Re-evaluation by your physician. Signatures: Susie Cox RN RN sv Rittger, Kevin, MD MD kdr Mickail, Joel, PA PA jm Corrections: (The following items were deleted from the chart) 08/12 13:53 13:30 08/12/2020 13:30 Discharged to Home. Impression: Epilepsy and recurrent seizures. sv Condition is Stable. Forms are Medication Reconciliation Form, Thank You Letter, Antibiotic Education, Prescription Opioid Use. Follow up: Private Physician; When: 2 - 3 days; Reason: Recheck today's complaints, Continuance of care, Re-evaluation by your physician. fatmata
[2020-08-12 13:58] VITALS: BP 118/74; TEMP 98.6; O2SAT 100
== END 2020-08-12 13:53 | disposition home or self-care (01) ==
LOC: ER 13:17
DX: G40.802 Other epilepsy, not intractable, without status epilepticus (principal); Z86.73 Personal history of transient ischemic attack (TIA), and cerebral infarction without residual deficits; Z88.1 Allergy status to other antibiotic agents
CPT/HCPCS: 99283

== ENCOUNTER 2020-11-25 16:43 | Emergency (ER) | payer OTHER ==
--- OUTSIDE RECORDS SUMMARY | 2020-11-25 16:48 | XMS REPORT | Continuity of Care Document ---
:1990 Author Organization [facility] t Address [address] [place] [address] Care Team Providers Name Role Phone Doctor Unassigned, [place] Attending Clinician Unavailable Aki ZACARIAS, E Attending Clinician Bert Rowe Attending Clinician Abril Diaz Attending Clinician Ritika Attending Clinician Bert Rowe Admitting Clinician Yuliet Carr Admitting Clinician Abril Diaz Admitting Clinician Problems Condition Condition Condition Status Onset Resolution Last Treating Co mments Source Name Details Category Date Date Treatment Clinician Date SEIZURES Diagnosis Active 2019-09-20 M emoria 8 16:43:00 l SEIZURES 00:00: Reji n 00 Active 11/30/2018 [facility] STROKE Diagnosis Active 2018-11-16 Mem oria SYMPTOMS 7- 23:36:00 l STROKE 00:00: [place] SYMPTOMS 00 Active 11/16/2018 [facility] MELAS Diagnosis Active 2019-09-20 Mem oria SYNDROME 7-20 16:42:00 l MELAS 00:00: [place] SYNDROME 00 Active 11/16/2018 [facility] STROKE Diagnosis Active 2019-03-24 Mem oria 7- 16:17:00 l STROKE 00:00: [place] 00 Active 10/28/2018 [facility] AMS Diagnosis Active 2018-10-26 Mem oria 10-26 03:37:00 l AMS 00:00: [place] 00 Active 10/26/2018 [facility] MELAS, Diagnosis Active 2019-09-20 Mem oria LACTIC 10-26 16:40:00 l ACIDOSIS MELAS, 00:00: Reji n STRK-LIKE LACTIC 00 EPISO ACIDOSIS STRK-LIKE EPISO Active 10/26/2018 [facility] CEREBRAL Diagnosis Active 2019-09-20 M emoria INFARCTION 16:40:00 l , CEREBRAL Reji n UNSPECIFIE INFARCTION D , UNSPECIFIE D Active [facility] Allergies, Adverse Reactions, Alerts Allergy Allergy Status Severity Reaction(s) Onset Inactive Treating Comm ents Source Name Type Date Date Clinician amoxicil amoxicil Active Memori a ezequiel ezequiel l [place] Depakote Depakote Active Memori a <sup>1</ <sup>1</ l sup> sup> [place] Medications Ordered Filled Start Stop Current Ordering [...] Levetiracet No 500 mg, Mem oria am 8-03 Route: PO, l 16:00: Drug form: [place] 00 TAB, Q12H, Dosing Weight 38.56, kg, Start date: 11/30/18 11:00:00 CDT, Duration: 30 day, Stop date: 12/30/18 9:00:00 CDT Co-Q10 No Notes: Memoria 11-30 (Same As: l 14:00: Co-Enzyme Q10) L-Arginine No 4,000 mg, Me moria 11-30 Route: PO, l 14:00: Drug form: [place] 00 TAB, TID, Dosing Weight 38.56, kg, [...] Memoria 11-20 Same as: l 14:00: Vimpat [place] 00 Vimpat No Notes: Memoria 11-17 Same as: l 22:00: Vimpat [place] 00 MEDICATION WASTE Product Size: [...] as: l container 1 14:00: R-Gene 10) [place] Docusate No Notes: Memoria 11-17 (Same as: l 14:00: Colace) (Do Not Crush) sennosides, No Notes: Andres cindy INTERMEDIATE 11-17 (Same as: l 14:00: Senokot) olanzapine 2018-0 No Notes: Memor ia 11-17 (Same as: l 13:22: ZyPREXA) L-Arginine No 5,000 mg, Me moria 11-17 Route: IV, l 13:19: TID, Dosing Weight 50, kg, Priority: NOW, Start date: 11/17/18 8:19:00 CDT, Duration: 30 day, Stop date: 12/16/18 17:00:00 CDT heparin 2018-0 No Notes: Memoria - porcine l 13:00: heparin D5W 1,000 No [...] CDT, Stop date: 11/17/18 4:48:00 CDT L-Arginine 0 Yes 5,000 mg, Me moria -21 PO, TID, 0 l 07:36: Refill(s) lacosamide No 50 mg = 1 Me moria 50 MG Oral - tab, PO, l Tablet 07:36: BID, # 30 Reji n [Vimpat] 00 day, 0 Refill(s) CoQ10 0 No 200 mg, Memoria -21 PO, Daily, l 07:36: 0 Refill(s) olanzapine 0 No 5 mg, PO, Me moria 7-21 [...] = 1 Me moria 50 mg oral 7- tab, PO, l tablet 22:30: BID, # 120 Trini nn 00 tab, 2 Refill(s) olanzapine Yes 5 mg = 1 Mem oria 5 MG Oral 7-09 tab, PO, l Tablet 22:15: PRN, PRN [place] 42 Other -See Comment, PRN Q12, # 60 tab, 0 Refill(s) ubiquinone Yes 400 mg = 2 M emoria 200 mg oral - cap, PO, l capsule 20:46: Daily, # Reji n 00 120 cap, 0 Refill(s) melatonin 3 Yes 6 mg = 2 Me moria mg oral 7-09 tab, PO, l tablet 19:48: Bedtime, [place] 00 PRN Sleep, # 60 tab, 0 Refill(s) lacosamide No 50 mg = 1 Me moria 50 mg oral 7-09 tab, PO, l tablet 19:48: BID, # 7 [place] 00 tab, 0 Refill(s) olanzapine No 5 mg = 1 Mem oria 5 MG Oral 7-09 tab, PO, l Tablet 19:48: PRN, PRN [place] 00 Other -See Comment, # 60 tab, [...] 12/04/18 20:54:00 CDT, 1.55, m2, 0 magnesium 2018-0 No Notes: Memori a sulfate 11-03 WASTE: [...] 11/03/18 12:22:00 CDT, Periphe ral Line Magnesium 2018-0 No Notes: Memori a Sulfate 11-03 WASTE: F/P l 12:21: - Sink; E - Municipal Trash Bin magnesium 2019-0 No Notes: Memori a sulfate - WASTE: F/P l 19:00: - Sink; E - Municipal Trash Bin Magnesium No Notes: Memori a Sulfate 7- WASTE: F/P l 11:29: - Sink; E [...] Chloride 10-30 (Same as: l 09:41: KCL) Infuse over 2 hours. NS (Bolus) No [...] IV 10-29 500 ml/hr, l 08:57: Infuse [place] 00 Over: 1 hr, Route: IV, 500, Drug form: INJ, ONCE, Priority: STAT, Dosing Weight 50 kg, Start date: 10/29/18 3:57:00 CDT, Stop date: 10/29/18 3:57:00 CDT, 0 Potassium No Notes: Memori a Chloride 10-29 (Same as: l 07:00: KCL) [place] 00 Infuse over 2 hours. D10W 980.75 [...] Memoria 10-28 Reconstitu l 19:48: te with [place] 00 1.2 ml of sterile water. Final concentrat ion = 20 mg/1ml. Maximum 40 mg/24 hours (Same As: Hiren). MEDICATION WASTE Product Size: 20 mg Product Wasted: _0__ mg Acyclovir No Notes: Memori a 10-28 (Same as: l 19:01: Zovirax) [place] 00 For adult patients only: Round to [...] 11/25/18 9:00:00 CDT Geodon No Notes: Memoria -29 Reconstitu l 23:27: te with 1.2 ml [...] as: l container 1 20:00: R-Gene 10) [place] ea 00 D10W 980.75 No 980.75 mL, Memoria mL + sodium -29 Rate: 150 l chloride 17:44: ml/hr, Spring 23.4% IV 77 00 Infuse mEq over: 6.7 hr, Route: IV, Dosing Weight 50 kg, Total Volume: 1,000, Priority: Routine, Start date: 10/26/18 12:44:00 CDT, Duration: 30 day, Stop date: 11/25/18 12:44:00 CDT, 1.55, m2, 0 arginine 2019-0 No 50 mL, Memoria 10% - Rate: 9.09 l additive 17:44: ml/hr, Spring 5,000 mg 00 Infuse [20 over: 5.5 mg/kg/hr] + hr, Route: Drug Only IV, Dosing 50 mL Weight 45.455 kg, Total Volume: 50 mL, Start date: 10/26/18 12:44:00 CDT, Duration: 30 day, Stop date: 11/25/18 12:43:00 CDT, 1.46, m2 ubiquinone 2018-0 No Notes: Memor ia - (Same As: l 14:00: Co-Enzyme Q10) Saline 2018-0 No Notes: Memoria Flush 0.9% - (Same as: l 14:00: BD Posiflush) L-Arginine 2018-0 No 5,000 mg, Me moria - Route: PO, l 14:00: TID, kg, Start date: 10/26/18 9:00:00 CDT, Duration: 30 day, Stop date: 11/24/18 17:00:00 CDT Phenergan 2018-0 No 25 mg, Memori a 6- Route: l 13:58: IVPB, Bryant 00 ONCE, [...] 0.9% - (Same as: l 12:45: BD [place] Posiflush) Nystatin No Notes: Memoria 100 UNT/MG - (Same l Topical 12:45: as:Mycosta Herm maria e Powder 00 tin, Nilstat) For external use only. Ativan No Notes: Memoria 6-29 (Same as: l 11:19: Ativan) [place] Haldol No Notes: Memoria 6-29 (Same as: l 11:11: Haldol) [place] 00 Versed No 5 mg, Memoria 6- Route: l 10:45: IVP, ONCE, Bryant kg, Start date: 10/26/18 5:45:00 CDT, Stop date: 10/26/18 5:45:00 CDT Ativan No 2 mg, Memoria 10-26 Route: l 10:42: IVP, Drug [place] 00 form: INJ, Q6H, kg, PRN Anxiety, Start date: 10/26/18 5:42:00 CDT, Duration: 30 day, Stop date: 11/25/18 5:41:00 CDT Ativan No 2 mg, Memoria 10-26 Route: PO, l 10:41: Drug form: [place] 00 TAB, TID, kg, PRN Anxiety, Start date: 10/26/18 5:41:00 CDT, Duration: 30 day, Stop date: 11/25/18 5:40:00 CDT Saline No Notes: Memoria Flush 0.9% 10-26 (Same as: l 10:23: BD [place] 00 Posiflush) Haldol No 2.5 mg, Memoria 6 Route: IM, l 09:21: ONCE, kg, [place] 00 Start date: 10/26/18 4:21:00 CDT, Stop date: 10/26/18 4:21:00 CDT Haldol No 5 mg, Memoria 6 Route: IM, l 09:20: ONCE, kg, [place] Priority: STAT, Start date: 10/26/18 4:20:00 CDT, Stop date: 10/26/18 4:20:00 CDT Versed 2019-0 No 3 mg, Memoria 10-26 Route: IM, l 09:20: ONCE, kg, [place] 00 Start date: 10/26/18 4:20:00 CDT, Stop date: 10/26/18 4:20:00 CDT Versed 2019-0 No 3 mg, Memoria 10-26 Route: l 09:18: IVP, ONCE, [place] 00 kg, Priority: STAT, Start date: 10/26/18 4:18:00 CDT, Stop date: 10/26/18 4:18:00 CDT Ketamine 2019-0 No Notes: Memoria 10-26 (Same as: l 07:07: keTALAR) [place] 00 Vital Signs Vital Name Observation Time Observation Value Comments Source Respitory Rate 2018-12-01 17:30:00 Memori al [place] Systolic (mm Hg) 2018-12-01 17:30:00 Andres rial [place] Diastolic (mm Hg) 2018-12-01 17:30:00 Mem orial [place] Temperature Oral (F) 2018-12-01 17:30:00 97.7 F [facility] [place] Heart Rate 2018-12-01 17:30:00 [facility] [place] Heart Rate 2018-12-01 13:14:00 [facility] [place] Temperature Oral (F) 2018-12-01 13:14:00 98.2 F [facility] [place] Systolic (mm Hg) 2018-12-01 13:14:00 Andres rial [place] Diastolic (mm Hg) 2018-12-01 13:14:00 Mem orial [place] Respitory Rate 2018-12-01 13:14:00 Memori al [place] Heart Rate 2018-12-01 06:00:00 [facility] [place] Respitory Rate 2018-12-01 06:00:00 Memori al [place] Systolic (mm Hg) 2018-12-01 06:00:00 Andres rial [place] Diastolic (mm Hg) 2018-12-01 06:00:00 Mem orial [place] Temperature Oral (F) 2018-12-01 06:00:00 97.2 F [facility] [place] Height 2018-11-30 07:44:00 165.1 cm [facility] [place] Weight 2018-11-30 07:44:00 [facility] [place] BMI Calculated 2018-11-30 07:44:00 Memori al [place] Temperature Oral (F) 2018-11-23 00:48:00 97.9 F [facility] [place] Heart Rate 2018-11-23 00:48:00 [facility] [place] Respitory Rate 2018-11-23 00:48:00 Memori al [place] Systolic (mm Hg) 2018-11-23 00:48:00 Andres rial [place] Diastolic (mm Hg) 2018-11-23 00:48:00 Mem orial [place] Heart Rate 2018-11-22 20:18:00 [facility] [place] Respitory Rate 2018-11-22 20:18:00 Memori al [place] Systolic (mm Hg) 2018-11-22 20:18:00 Andres rial [place] Diastolic (mm Hg) 2018-11-22 20:18:00 Mem orial [place] Temperature Oral (F) 2018-11-22 20:18:00 98.1 F [facility] [place] Temperature Oral (F) 2018-11-22 16:20:00 97.8 F [facility] [place] Systolic (mm Hg) 2018-11-22 16:20:00 Andres rial [place] Diastolic (mm Hg) 2018-11-22 16:20:00 Mem orial [place] Heart Rate 2018-11-22 16:20:00 [facility] [place] Respitory Rate 2018-11-22 16:20:00 Memori al [place] Weight 2018-11-20 17:58:00 [facility] [place] BMI Calculated 2018-11-20 17:58:00 Memori al [place] Height 2018-11-20 17:58:00 165.1 cm [facility] [place] Height 2018-11-17 07:24:00 165.1 cm [facility] [place] Weight 2018-11-17 07:24:00 [facility] [place] BMI Calculated 2018-11-17 07:24:00 Memori al [place] Weight 2018-11-17 03:15:00 [facility] [place] BMI Calculated 2018-11-17 03:15:00 Memori al [place] Height 2018-11-17 03:15:00 165.1 cm [facility] [place] Systolic (mm Hg) 2018-11-05 20:41:00 Andres rial [place] Diastolic (mm Hg) 2018-11-05 20:41:00 Mem orial [place] Respitory Rate 2018-11-05 20:41:00 Memori al [place] Heart Rate 2018-11-05 20:41:00 [facility] [place] Temperature Oral (F) 2018-11-05 20:41:00 98.6 F [facility] [place] Heart Rate 2018-11-05 16:53:00 [facility] [place] Temperature Oral (F) 2018-11-05 16:44:00 98.9 F [facility] [place] Heart Rate 2018-11-05 16:44:00 [facility] [place] Respitory Rate 2018-11-05 16:44:00 Memori al [place] Systolic (mm Hg) 2018-11-05 16:44:00 Andres rial [place] Diastolic (mm Hg) 2018-11-05 16:44:00 Mem orial [place] Temperature Oral (F) 2018-11-05 13:03:00 98.8 F [facility] [place] Respitory Rate 2018-11-05 13:03:00 Memori al [place] Systolic (mm Hg) 2018-11-05 13:03:00 Andres rial [place] Diastolic (mm Hg) 2018-11-05 13:03:00 Mem orial [place] Height 2018-10-30 12:04:00 172.72 cm [facility] [place] Weight 2018-10-30 12:04:00 [facility] [place] Weight 2018-10-27 01:35:00 [facility] [place] BMI Calculated 2018-10-27 01:35:00 Memori al [place] Height 2018-10-27 01:35:00 172.72 cm [facility] [place] Weight 2018-10-26 13:00:00 [facility] [place] BMI Calculated 2018-10-26 13:00:00 Memori al [place] Height 2018-10-26 13:00:00 167.64 cm [facility] [place] Procedures This patient has no known procedures. Encounters Start End Encounter Admission Attending Care Care Encounter Source Date/Time Date/Time Type Type Clinicians Facility Department ID 2018-11-30 Inpatient U [facility] [address] [facility] H 02:23:00 2018-11-16 Inpatient [facility] MED [id number] [facility] H 22:55:57 2020-02-03 2020-02-03 Orders Doctor HZONG [id number] 00:00:00 00:00:00 Only Unassigned, [id number] [id number] 2019-12-19 2019-12-19 Orders Doctor TREVIN [id number] 00:00:00 00:00:00 Only Unassigned, [id number] [id number] 2019-01-17 2019-01-17 Patient Lisha Prabhakar [id number] 00:00:00 00:00:00 Outreach E [place] [id number] [place] [id number] [id number] 2018-12-19 2018-12-19 Patient Lisha Prabhakar [id number] 00:00:00 00:00:00 Outreach E [place] [id number] [place] [id number] [id number] 2018-11-30 2018-12-01 Outpatient Jae [facility] [id number] 02:23:00 15:17:00 Rolly Noel 15 2018-11-16 2018-11-22 Outpatient Joe [facility] [id number] 22:08:00 21:05:00 Marcela 00 Abril 2018-11-17 2018-11-16 Inpatient U [facility] [address] [facility] 00:33:00 22:08:00 2018-10-26 2018-11-05 Outpatient Ritika [facility] [id number] 00:57:22 19:45:00 Amrou 00 2018-10-26 2018-10-26 Inpatient U [facility] [id number] 05:23:00 00:57:00 Results Test Description Test Time Test Comments Results Result Comments Source ER SCREEN FOR HIV 1/2 2020-07-03 22:45:00 Test Item Value Reference Range Interpretation Comme nts HIV 1/2 AB (test code = SCRN NEGATIVE NEGATIVE This test is used for SCREENING HIV) purposes only. All reactive results are prelimenary and confirmation results will fo llow. CARBAMAZEPINE,[id number] 21:09:00 Test Item Value Reference Range Interpretation Comments CARBAMAZ (test code = CARBAMAZ) 5 UG/ML 4-12 COVID SYMPTOMATIC ER [id number] 21:05:00 Test Item Value Reference Range Interpretation Comments CORONAVIRUS (COVID-19)BY PCR (test NEGATIVE code = RBJ90WFY) INFLUENZA [id number] 20:40:00 Test Item Value Reference Range Interpretation Comments FLU A (test code = FLU A) NEGATIVE NEGATIVE FLU B (test code = FLU B) NEGATIVE NEGATIVE FLU INTERNAL POSITIVE CNTRL (test PASS PASS code = FLU IPC) INFLUENZA LOT # (test code = FLULOT) [id number] INFLUENZA EXPIRATION DATE (test code [id number] = FLUEXP) URINE DRUG [id number] 19:04:00 Test Item Value Reference Range Interpretation [...] PCP (test code = NEGATIVE NEGATIVE BMTPCP) [id number] 18:45:00 Test Item Value Reference Range Interpretation [...] glucose = GLUCOSE) normal <100 MG/ DL- [employer] recommendation* * CALCIUM (test [...] of age is not validated by e administrative medical director an d may not represent t he patients true r enal function. [id number] 18:25:00 Test Item Value Reference Range Interpretation [...] 13.4 K/UL 1.2-7.2 H = NEUT) CHEM [id number] 16:03:002.0[facility]ann[facility]ARDIAC DFYAMJY9108-06-28 10:22:0082[facility] HermannCHEM BDYPW9779-03-68 10:22:000.3[facility] HermannCHEM OXOQF0654-79-20 10:22:0025[facility]annCHEM RJEBQ3324-63-68 10:22:16604 [facility]annCHEM VFNFV4091-09-04 10:22:008.2[facility] HermannCHEM PANEL 2018-11-30 10:22:003.4[facility] HermannCHEM INXGD1074-07-19 10:22:006.7[facility] HermannCHEM OPJLE7347-91-69 10:22:0019[facility]annCHEM ADBJT5728-97-29 10:22:0019[facility]annCHEM ZKJEO4485-02-75 10:22:0072[facility]annCHEM STFKU4658-20-26 10:22:46640Xbqhlamd HermannCHEM FQPFS0521-08-19 10:22:0087 [facility]annCHEM RTZIC3941-90-22 10:22:003.5[facility] HermannCHEM PANEL 2018-11-30 10:22:0010[facility] HermannCHEM RNOOF6946-46-30 10:22:000.60[facility] HermannCHEM MDQPI8618-45-53 10:22:31836Orzvmwmc HermannCHEM EMATM2538-72-09 10:22:0013.5[facility] HermannCHEM PISSR5215-21-06 10:22:00 Test Item Value Reference Range Interpretation Comments A/G Ratio (test code = A/G Ratio) 1.0 1 0.7-1.6 [facility]annCHEM [id number] 10:22:003.3[facility] HermannCHEM PANEL 2018-11-30 10:22:00 Test Item Value Reference Range Interpretation Comments B/C Ratio (test code = B/C Ratio) 17 1 6-25 [facility] FsbyxifYLDLJRIILV2929-42-01 10:22:000.3[facility] HermannHEMATOLOGY 2018-11-30 10:22:006.9[facility] WhnvvesSAKSXLIFIZ4508-81-27 10:22:0052.8[facility] UbzsutkBYHTQVDFYN2476-64-05 10:22:0036.3[facility] AhshrbcFZBDYNWXME1442-23-31 10:22:002.9[facility] IdwsuawHJZJGVPCMX0205-77-12 10:22:004.2[facility] IULLTNIZNE6317-33-11 10:22:000.5[facility] ZhryemdSGLGKKSKDC7973-67-40 10:22:003.5 [facility] JxwyvpfPJEKBJJNNX0501-92-21 10:22:000.5[facility] HermannHEMATOLOGY 2018-11-30 10:22:0035.6[facility] HpqhcygOAXOAGCWAT0097-62-88 10:22:0034.4[facility] MzxoshlSVFVEJWBET4702-58-92 10:22:0012.2[facility] PdglcraQEZHOWGXVZ5997-12-47 10:22:0087.1[facility] JpqzacbHOAGBCGQDU2669-61-12 10:22:00 Test Item Value Reference Range Interpretation Comments MCH (test code = MCH) 31.0 pg 27.0-31.0 [facility] QmpbcjmDEJVAMJPAF6815-01-18 10:22:75419Vtgzvxtr HermannHEMATOLOGY 2018-11-30 10:22:008.7[facility] LredqqfBSENQCYTLN1337-60-16 10:22:0013.9[facility] DmcxyyaUCEINSAYWF3704-36-06 10:22:007.9[facility] OdrsbwkYJXMZZDBER6335-64-24 10:22:003.95[facility] HermannCHEM LIHRC5586-46-33 02:16:001.7[facility] HermannCHEM KCLRT1195-55-73 21:13:002.2[facility] HermannCHEM KWXBS1326-86-59 17:48:002.4 [facility]annURINE AND PPSCH5211-82-28 14:16:00Negative (11/18/18 9:16 AM) [facility] EHLVI5590-01-02 14:16:00Negative (11/18/18 9:16 AM) [facility] FMDZZ7598-42-80 14:16:001[facility] AND NXZCB2097-96-58 14:16:00Negative *NA*(11/18/18 9:16 AM)[facility] AND HPANI9175-12-02 14:16:00Negative (11/18/18 9:16 AM)[facility] FAWJX2601-65-84 14:16:00<1.0[facility] AND FLFWD0729-53-04 14:16:00Light Yellow *NA*(11/18/18 9:16 AM)[facility] STOOL 2018-11-18 14:16:00Clear (11/18/18 9:16 AM)[facility] AND STOOL 2018-11-18 14:16:00 Test Item Value Reference Range Interpretation Comments UA Spec Grav (test code = UA Spec 1.005 1 Grav) [facility] [id number] 14:16:00 Test Item Value Reference Range Interpretation Comments UA pH (test code = UA pH) 6.0 1 5.0-8.0 [facility]annCHEM PVMQV5541-81-99 08:58:004.7[facility] HermannCHEM PANEL 2018-11-18 08:58:001.9[facility] OkxeaaeZZGLFFFBUFAA8150-50-29 08:58:0013.5 [facility] UyebwcmFCZSLFUPXDSY0078-25-02 08:58:15046Bbulixks HermannELECTROLYTES 2018-11-18 08:58:16092Krsafdup NykwxskZPZLHLITNXHS9576-05-62 08:58:0012[facility] NbuntspQZMPJJCIEKTV7404-66-73 08:58:0023[facility] AwdikowRUTZLMRABHNL4783-83-35 08:58:003.5[facility] GjeqkxdIIKRWPUREIFC4399-13-35 08:58:69105Coackizf [place] CXQKZHLYAPDT3937-70-51 08:58:000.67[facility] TlbrmfaPQMACVSBBATG7862-65-46 08:58:64356Gizhzkko CosaggfQMOOGCXHYPGV6410-83-19 08:58:009.1[facility] ZQKCRYVMAF5590-05-92 08:58:003.5[facility] VfvvfspHLOPNPKUGN8496-54-36 08:58:007.7 [facility] TwrhvhhBVMVPBCBAU3625-58-11 08:58:0032.4[facility] HermannHEMATOLOGY 2018-11-18 08:58:002.8[facility] DtyllwhSZLCNJGIGP8713-60-28 08:58:004.8[facility] VkawrysRFQJQMYVUE3721-33-10 08:58:000.7[facility] RijpmzeNKDGANLOAJ2842-60-92 08:58:000.1[facility] PctcyluCZQBJSHHVR3564-51-76 08:58:000.3[facility] [place] UKVPXICLPU6373-01-15 08:58:000.7[facility] FyiiudaEYVUIHLUFZ7427-18-94 08:58:00 55.7[facility] LcmvadmVJKIJNNLER3835-13-69 08:58:009.4[facility] HermannHEMATOLOGY 2018-11-18 08:58:40553Bcvhdctx OukjwreEWIOIQZJXJ4418-74-18 08:58:0013.3[facility] IczjifiEFWWTPFITR5360-29-23 08:58:0013.1[facility] PtyrriyPWOTQPHZHQ7329-41-48 08:58:004.24[facility] JyrexdoXZMOGCWUHN5554-05-29 08:58:008.7[facility] VUIQNMIJKQ1980-78-13 08:58:0035.2[facility] GbpkkydVHNBMWLAHI0275-20-18 08:58:00 Test Item Value Reference Range Interpretation Comments MCH (test code = MCH) 30.8 pg 27.0-31.0 [facility] CysnjokEECTMRGVSO0050-15-75 08:58:0087.6[facility] HermannHEMATOLOGY 2018-11-18 08:58:0037.1[facility] HermannCHEM ZPUNR3567-68-72 06:25:0072[facility] HermannCHEM RKDWL6245-50-60 06:25:13363Vsfmnsnu HermannCHEM PMWCQ7108-01-66 06:25:00 Test Item Value Reference Range Interpretation Comments A/G Ratio (test code = A/G Ratio) 1.0 1 0.7-1.6 [facility]annCHEM SIQAU2252-73-72 06:25:004.0[facility] HermannCHEM PANEL 2018-11-17 06:25:000.4[facility] HermannCHEM QDFZU4917-56-26 06:25:000.1[facility] HermannCHEM FGOYY8486-39-20 06:25:000.5[facility] HermannCHEM CHRHH8933-77-88 06:25:0026[facility] HermannCHEM GQFII5755-83-84 06:25:0094[facility] HermannCHEM WJMDR6229-53-72 06:25:0028[facility] HermannCHEM MGJKH1861-88-03 06:25:003.9 [facility] HermannCHEM CXAKR7712-65-97 06:25:007.9[facility] HermannCHEM PANEL 2018-11-17 06:25:0011.0[facility] HermannCARDIAC FZQXZYZ3859-37-38 04:26:000.09 [facility] HermannCARDIAC DLPZWYJ7754-10-46 04:26:0085[facility] HermannCHEM PANEL 2018-11-17 04:26:10195Huuvntiw HermannCHEM NAIOO6215-16-39 04:26:0026[facility] HermannCHEM PJYWN8636-30-63 04:26:60541Ltatcixk HermannCHEM QVRRS6403-75-72 04:26:0016.5[facility] HermannCHEM EMEDJ7472-41-32 04:26:009.2[facility] HermannCHEM IJSDB9352-87-58 04:26:17180Anuxcnnj HermannCHEM HTUDE0886-63-16 04:26:000.75 [facility] HermannCHEM RHJZD4977-15-44 04:26:003.5[facility] HermannCHEM PANEL 2018-11-17 04:26:0015[facility] HermannCHEM JCBLV6779-04-03 04:26:0099[facility] QmxtmvfRYIBDFRFKY5078-23-32 03:29:00 Test Item Value Reference Range Interpretation Comments INR (test code = INR) 1.06 1 0.85-1.17 [facility] FvhuimxVIOGPPLBOP5878-69-45 03:29:00 Test Item Value Reference Range Interpretation Comments PT (test code = PT) 13.6 s 12.0-14.7 [facility] PjestruVMXEXMIGBM9657-88-24 03:29:0010.1[facility]ann[facility]MATOLOGY 2018-11-17 03:29:0012.9[facility] DrpbicfIUAJCODTXD5478-91-51 03:29:00 Test Item Value Reference Range Interpretation Comments MCH (test code = MCH) 30.1 pg 27.0-31.0 [facility] KzxlzpcESRTOJXOUH6410-92-68 03:29:0034.5[facility]annHEMATOLOGY 2018-11-17 03:29:0037.3[facility] AdgcbhoNEGYQROZHL9222-56-96 03:29:0087.3[facility] BpwmrfcTZBVXOCFUY9384-71-30 03:29:004.28[facility] RlbxokyYEZSPBGKLH6274-78-51 03:29:0013.8[facility] KazqopvGNNFXSRJHW1680-12-83 03:29:55298[place] OPLQEHZVIX6246-55-33 03:29:009.1[facility] WtdjtneRAVQYOJJKZ3736-09-51 03:29:00 Test Item Value Reference Range Interpretation Comments PTT (test code = PTT) 32.3 s 22.9-35.8 [facility] LchnjxcUQHXRUQZPO3676-93-75 03:29:0060.4[facility]annHEMATOLOGY 2018-11-17 03:29:000.8[facility] IfvnpxtBWBAIEEGUF4778-81-23 03:29:002.7[facility] BijeqybSJEGZIJNIJ0655-00-10 03:29:0029.3[facility] VxzooszKVWUVIPWID6865-08-91 03:29:006.8[facility] YasrnzmHZIETLMNHG3685-82-94 03:29:003.0[facility] YDFZXLTQWA9645-97-72 03:29:000.7[facility] EwotckpSFZSCPOWRV6793-33-77 03:29:006.1 [facility] GnfkbitJQQDMZGQWE6824-62-87 03:29:000.1[facility]annHEMATOLOGY 2018-11-17 03:29:000.3[facility] RazuujyMDCKUYUGCU1728-67-18 14:21:000.6[facility] CvjfoluVDNNAAWQRT6767-50-47 14:21:003.0[facility] DqvkghqSRVEPKQGWE8389-39-03 14:21:006.5[facility] KdlbmbqSROEVNQXUO3598-96-53 14:21:0028.9[facility] ICNBJLFIBM4979-93-66 14:21:000.7[facility] GkmafmoXFKYAITPQL6514-74-84 14:21:003.0 [facility] WrrhpdnFFJXRGUDCL4097-95-45 14:21:006.4[facility]annHEMATOLOGY 2018-11-04 14:21:000.1[facility] SraluonNNHYINGKIX4006-57-39 14:21:000.3[facility] DqwcjysKZQESBZMTK0452-71-56 14:21:0061.0[facility] VnzykosODMXTGHOVX7439-11-79 14:21:004.13[facility] ZxmuzxvYOXXRPWBHT6787-76-98 14:21:0010.4[facility] NLTJTUFDFA4094-94-47 14:21:0035.0[facility] KsikvtbHZTRXAPAAL9749-77-21 14:21:00 218[facility] BtjlyesKSBHEUHNEG1821-33-72 14:21:0013.3[facility]annHEMATOLOGY 2018-11-04 14:21:0012.5[facility] IxjtnzgVFRFNQKYTJ5522-84-85 14:21:008.5[facility] MngineoDRTMDTZVXL9441-42-84 14:21:0086.4[facility] VtxrvjlLAPTCRPDZT0148-96-41 14:21:0035.6[facility] VipwujlAVRKUQTOXK1993-69-92 14:21:00 Test Item Value Reference Range Interpretation Comments MCH (test code = MCH) 30.2 pg 27.0-31.0 [facility] YYMVU9750-13-94 11:06:005.4[facility]annCHEM PANEL 2018-11-04 11:06:001.8[facility]annCHEM HFMXC6068-10-49 11:06:18597Uvqvlsul HermannCHEM JSYGW5624-75-66 11:06:008.1[facility]annCHE[facility] SWLXO1743-33-94 11:06:20245Doezlukw HermannCHEM KPFJM0918-04-69 11:06:004.8[facility]annCHEM PSONG6503-65-50 11:06:89924Ymxhxttz HermannCHEM IXMDU9661-20-16 11:06:0025 [facility]CHE[facility] RCKWI8272-36-44 11:06:0015[facility]annCHEM PANEL 2018-11-04 11:06:000.65[facility]annCHE[facility] GAKYO6491-43-94 11:06:76739Vkvbogsf HermannCHEM ECTVZ0816-76-25 11:06:0012.8[facility]annPARATHYROID PROFILE 2018-11-04 11:06:001.05[facility]annPARATHYROID AKAQYQP7118-18-15 11:06:00 1.05[facility]annCHEM HQVKU8049-91-27 09:35:001.8[facility]annCHEM PANEL 2018-11-03 09:35:004.2[facility] OqvokwrKLGSRAKPSNTE8079-94-60 09:35:0013.1 [facility] DcswgenBPPWHAVRDFSW7204-48-26 09:35:81122Dwbufnxf HermannELECTROLYTES 2018-11-03 09:35:008.0[facility] JsrbpvkTIDNUGRQPIET6474-50-31 09:35:51771Mfxgxtdo XehlzbeBOFNJTTEAVQL2412-18-37 09:35:0021[facility] CvwfxbvNMRLPNOEWIDR0585-92-49 09:35:0010[facility] RoqvpkcXJUAYFOFVRDP2219-62-58 09:35:000.72[facility] LEVQIPHTYWVW3465-61-60 09:35:0094[facility] PgnedakLEBWIFQDORGT3323-90-14 09:35:00 142[facility] OwtfmbnXJFUWSJWRJSP4936-27-44 09:35:003.1[facility] HermannHEMATOLOGY 2018-11-03 09:35:000.2[facility] JwmmlstMSOQYGAODJ8343-30-18 09:35:000.1[facility] HcxkiwzPEVCNODBEG7527-29-50 09:35:0037.1[facility] TbyarrtIEZCLHREGK8438-88-60 09:35:008.0[facility] ErnseweMSFVQXGPGT7948-65-15 09:35:0051.3[facility] NYNIRHKHMC0461-32-06 09:35:000.7[facility] WipthjlLNUMRJUSHA1189-99-56 09:35:003.1 [facility] YiwcezmRMCLGURHWW2785-91-60 09:35:002.7[facility] HermannHEMATOLOGY 2018-11-03 09:35:000.9[facility] MwhbxjnRGLIYEAMMX3960-48-29 09:35:004.3[facility] CxpjnmzNIULJHKKLA3434-98-88 09:35:008.5[facility] XjqqnclGQNHKXFJUT5128-73-58 09:35:003.70[facility] QeoczqdSYCMQXOPIQ2962-16-64 09:35:0011.3[facility] IDWHTEWKYR6008-78-52 09:35:0031.5[facility] SgolhbqJUBWJIGLAB7197-80-36 09:35:00 9.4[facility] XlawhjuNFQEUXORQI5466-04-81 09:35:0012.9[facility] HermannHEMATOLOGY 2018-11-03 09:35:19533Sywhhspz WlenarjMNPXEBMDAV7159-91-71 09:35:0035.9[facility] GdhxxphPSAMAVCEVK9588-38-57 09:35:00 Test Item Value Reference Range Interpretation Comments MCH (test code = MCH) 30.5 pg 27.0-31.0 [facility] TerxkltUARLJJZNPA7178-84-46 09:35:0085.1[facility]annPARATHYROID ZURFNFU7985-15-28 09:35:001.08[facility]annPARATHYROID NJEHMIA1098-36-70 09:35:001.09[facility]annCHEM XBDLL5762-24-44 08:48:004.1[facility]annCHEM EZWOO6808-34-20 08:48:001.5[facility]annCHEM RLAUR9352-63-75 08:48:12606 [facility]annCHEM ZHFXU3097-63-07 08:48:008.9[facility]annCHEM PANEL 2018-11-02 08:48:0020[facility]annCHEM CPQCP3421-52-94 08:48:0014.0[facility]annCHEM IVGXJ4977-50-52 08:48:000.62[facility]annCHEM KUOES4435-06-67 08:48:007[facility]annCHEM ZGVQF2473-13-95 08:48:003.0[facility]annCHEM DHYQF3926-49-51 08:48:81661Orrluqmg HermannCHEM DYDXU5567-77-56 08:48:73360 [facility]annCHEM OTBZT6815-33-45 08:48:0098[facility]annCHEM PANEL 2018-11-02 08:48:003.6[facility] HqdeytqLHAOOTBPHJ5794-49-31 08:48:000.1[facility] ThraqsnAXATLHUSZQ2742-83-22 08:48:000.7[facility] WbieemxVVJFSMOXRO3437-52-24 08:48:003.5[facility] AqphvlpUXXYDRTRPO5963-24-39 08:48:004.4[facility] IASOEQZUEO7333-82-77 08:48:008.5[facility] FwwyvrkLOXQHBSOBH4956-58-35 08:48:00 35.2[facility] RlcuvsnAYIJOPBBCG0802-04-48 08:48:0052.1[facility] HermannHEMATOLOGY 2018-11-02 08:48:000.3[facility] KsdrrywGBSFKJPUED9624-36-09 08:48:000.7[facility] CmacqhyXOHEQSBCRH6162-82-19 08:48:003.0[facility] MixqgaiGYOEPLYVTZ0200-88-41 08:48:008.7[facility] OkcrpziSYKBLXJHDJ9221-97-50 08:48:0013.0[facility] UIVWGLNRPJ1531-92-09 08:48:85146Katetxgg GjtqhjsABSJEQNLOI6722-42-13 08:48:00 85.8[facility] XhwohfkCNHFFEKWSB1408-42-48 08:48:00 Test Item Value Reference Range Interpretation Comments MCH (test code = MCH) 31.1 pg 27.0-31.0 [facility] KsvovikDNBNLHGPIQ5354-64-66 08:48:0036.2[facility] HermannHEMATOLOGY 2018-11-02 08:48:0012.2[facility] AgatblyTXKHLOIOUZ4724-18-26 08:48:0033.6[facility] TehlqtiAZFYGEVMTR5209-80-30 08:48:008.5[facility] AvqutttHSOXFUPIJP1434-79-08 08:48:003.92[facility]annPARATHYROID GGLSVJT1618-25-04 08:48:001.15[facility]annPARATHYROID PQFYGLF8030-18-38 08:48:001.11[facility] HermannCHEM PANEL 2018-11-02 00:46:004.7[facility]annCHEM SUXRE0726-14-16 16:20:004.2[facility] KjfcqdhZDEDZEMTZN3524-59-11 08:26:001.3[facility] WufuuahLGNJDSNTDQ1829-19-29 08:26:00 Test Item Value Reference Range Interpretation Comments Rohith Sosa TND (test code = Milio Tr 0730 1 TND) [facility]annCHEM GTUKR3096-07-37 15:08:000.3[facility]annURINE AND STOOL 2018-10-30 15:08:00<1.0[facility] AND HDCYN6597-38-94 15:08:00 Negative (10/30/18 10:08 AM)[facility] NARPO5582-51-05 15:08:00 Moderate *ABN*(10/30/18 10:08 AM)[facility] SCFHO6936-60-49 15:08:00Small *ABN*(10/30/18 10:08 AM)[facility] LFZOE9223-97-07 15:08:001[facility] VXWTP2688-27-83 15:08:001[facility] AND FGHKY2561-97-81 15:08:00 Test Item Value Reference Range Interpretation Comments UA Spec Grav (test code = UA Spec 1.005 1 Grav) [facility] VVSAT4418-90-06 15:08:00 Test Item Value Reference Range Interpretation Comments UA pH (test code = UA pH) 6.0 1 5.0-8.0 [facility] ISGWO6589-77-18 15:08:00Negative *NA*(10/30/18 10:08 AM) [facility] SMUVF2263-92-86 15:08:00Clear (10/30/18 10:08 AM) [facility] ATHMC0105-88-15 15:08:00Light Yellow *NA*(10/30/18 10:08 AM)[facility]annCHEM NYTGI6541-70-26 23:51:0094[facility]annCHEM PANEL 2018-10-28 23:51:0059[facility] PfacvlcTGCYIIHYPF0592-78-81 21:04:00Negative *NA*(10/28/18 4:04 PM)[facility] IFSYT8488-92-79 19:06:00Negative (10/28/18 2:06 PM)[facility] XOXXY1336-04-89 19:06:00Trace *ABN*(10/28/18 2:06 PM)[facility] IXZCW9293-30-27 19:06:00None Seen (10/28/18 2:06 PM)[facility] FAZZT4156-15-13 19:06:00Negative *NA*(10/28/18 2:06 PM)[facility] GKIEY8071-11-37 19:06:00Negative (10/28/18 2:06 PM)[facility] VIDRW0782-75-23 19:06:000.2[facility] NBZMS1978-17-23 19:06:00Negative (10/28/18 2:06 PM)[facility] EGYWS8142-77-58 19:06:00Negative (10/28/18 2:06 PM)[facility] XVHAF9120-63-48 19:06:00Negative *NA*(10/28/18 2:06 PM)[facility] IODVM8187-04-81 19:06:00Clear (10/28/18 2:06 PM)[facility]INE AND CTRPV6904-54-30 19:06:00 Test Item Value Reference Range Interpretation Comments UA pH (test code = UA pH) 5.5 1 5.0-8.0 [facility] MFWQO8718-11-19 19:06:00 Test Item Value Reference Range Interpretation Comments UA Spec Grav (test code = UA Spec 1.010 1 Grav) [facility] RBTPV6466-28-20 19:06:00Yellow *NA*(10/28/18 2:06 PM) [facility] PIVUP7241-75-41 19:06:00<1[facility] RNJIP4742-30-48 19:06:001[facility]annDRUG WAENFW3052-96-11 21:34:00See Note (10/26/18 4:34 PM)[facility]DR[facility] SBRLJB6350-75-40 21:34:00Negative *NA*(10/26/18 4:34 PM)[facility] IPPPOI2550-84-35 21:34:00Negative *NA*(10/26/18 4:34 PM)[facility] JGOAIW7367-81-82 21:34:00Negative *NA*(10/26/18 4:34 PM)[facility] PODZUI8008-03-28 21:34:00Negative *NA*(10/26/18 4:34 PM)[facility] YAAMKV0120-23-23 21:34:00Positive *ABN*(10/26/18 4:34 PM)[facility]DR[facility] VIDSDL8902-99-43 21:34:00Negative *NA*(10/26/18 4:34 PM)[facility] HPLXAH1530-45-96 21:34:00Negative *NA*(10/26/18 4:34 PM)[facility] XZUXA5149-97-04 21:34:00Clear (10/26/18 4:34 PM)[facility] BVVEG9135-35-53 21:34:00 Test Item Value Reference Range Interpretation Comments UA Spec Grav (test code = UA Spec 1.026 1 Grav) [facility] NFISW6227-39-95 21:34:00Yellow *NA*(10/26/18 4:34 PM) [facility] REXMS7052-13-54 21:34:00Negative *NA*(10/26/18 4:34 PM) [facility] GMHFL4493-63-61 21:34:00 Test Item Value Reference Range Interpretation Comments UA pH (test code = UA pH) 5.0 1 5.0-8.0 [facility] FHUUV3544-83-75 21:34:00<1.0[facility] VZEUM5955-92-01 21:34:00Negative (10/26/18 4:34 PM)[facility] GRPPA4970-95-04 21:34:00<1[facility] LDNHV4175-70-05 21:34:00 Negative (10/26/18 4:34 PM)[facility] FMHSR2524-11-50 21:34:00 Negative (10/26/18 4:34 PM)[facility] XQKNN2872-92-07 21:34:001 [facility]annBACTERIAL - MNOJZAIO7726-66-57 16:26:00Negative (10/26/18 11:26 AM)[facility]annCHEM CDMVT9265-80-44 16:26:0039.0[facility]annCHEM PANEL 2018-10-26 16:26:00 Test Item Value Reference Range Interpretation Comments A/G Ratio (test code = A/G Ratio) 0.9 1 0.7-1.6 [facility]CHE[facility] MNXAN4519-97-91 16:26:003.7[facility]annCHEM PANEL 2018-10-26 16:26:0091[facility]annCHEM IJOFP1682-81-77 16:26:000.3[facility]annCHEM NKBHO4118-92-50 16:26:0025[facility]annCHEM WVDVQ7353-43-96 16:26:000.1[facility]annCHEM ZMGHB8229-94-26 16:26:000.2[facility]annCHEM NVAZD4836-77-17 16:26:0028[facility]annCHEM ICUBA9669-53-73 16:26:003.5 [facility]annCHE[facility] CYKXO9102-83-09 16:26:007.2[facility]annCHEM PANEL 2018-10-26 16:26:0058[facility]annCHEM FEXMT7327-00-49 16:26:0062[facility]annCHEM WBVVL0481-59-65 10:46:00 Test Item Value Reference Range Interpretation Comments A/G Ratio (test code = A/G Ratio) 1.0 1 0.7-1.6 [facility]CHE[facility] ZTZWP5498-92-09 10:46:00 Test Item Value Reference Range Interpretation Comments B/C Ratio (test code = B/C Ratio) 27 1 6-25 [facility]CHE[facility] VVUHY4872-74-34 10:46:003.9[facility]annCHEM PANEL 2018-10-26 10:46:0030[facility]annCHEM KTOTR2250-77-27 10:46:000.3[facility]annCHEM YTOPB9104-62-93 10:46:0097[facility]annCHEM HZBSR1322-47-20 10:46:004.0[facility]annCHEM ITLDA2187-12-19 10:46:0023[facility]annCHEM HWJOQ6497-35-63 10:46:007.9[facility]annCHEM QYMIG9617-73-12 10:46:00<0.1 [facility] PduqampCKMCDT2085-95-02 10:46:00 Test Item Value Reference Range Interpretation Comments VLDL (test code = VLDL) 24 1 [facility] JypeksiOULXMD3306-62-43 10:46:0078[facility] AxzhnhuLZJXEN7517-75-36 10:46:91107Cyrpkcyv SkwwypdSEZZNT9166-12-68 10:46:0034Memori[facility] HermannLIPIDS 2018-10-26 10:46:29595Lmmqqkcc GxsyimnAPBKMD0154-18-71 10:46:00 Test Item Value Reference Range Interpretation Comments CHD Risk (test code = CHD Risk) 4.00 1 4.00-7.30 [facility] YATXNZYWV8751-19-77 10:46:005.4[facility]
--- NOTE | 2020-11-25 18:16 | RAD REPORT ---
EXAM DESCRIPTION: CT - Head Brain Wo Cont - 11/25/2020 5:54 pm CLINICAL HISTORY: Dizziness;Trauma COMPARISON: Head Brain Wo Cont dated 11/29/2018; HEAD BRAIN W O CONTRAST dated 04/16/2012 TECHNIQUE: All CT scans are performed using dose optimization technique as appropriate and may inclu de automated exposure control or mA/KV adjustment according to patient size. FINDINGS: No intracranial hemorrhage, hydrocephalus or extra-axial fluid collection.No areas of brai n edema or evidence of midline shift. Bilateral maxillary sinus mucous retention cysts. Bilateral mul tifocal areas of white matter hypoattenuation including in the right temporal occipital lobe, left fr ontal lobe, left temporal lobe and bilateral basal ganglia/parsons radiata. The calvarium is intact. IMPRESSION: No acute intracranial abnormality. Sequela of bilateral remote infarcts. If there is co ncern for an acute infarct, MRI would be recommended for further evaluation peer
[2020-11-25 21:48] LABS: Urine Blood Negative (Negative); Urine Glucose Negative (Negative); Urine Protein 3+ (Negative); Urine Specific Gravity >=1.030 (1.005-1.030)
[2020-11-25 22:13] LABS: Absolute Lymphocytes (CBC) 3.4 K/uL (0.7-4.9); Basophils % 0.7 % (0-1.3); Hematocrit 43.4 % (39.6-49.0); Lymphocytes % 27.6 % (15.3-44.8); MPV 8.8 fL (7.6-11.3); RBC Red Blood Cell Count 4.87 M/uL (4.33-5.43)
[2020-11-25 22:15] LABS: ALT/SGPT 30 U/L (12-78); AST/SGOT 25 U/L (15-37); Albumin 4.8 g/dL (3.4-5.0); Alkaline Phosphatase 119 U/L (45-117); BUN Blood Urea Nitrogen 15 mg/dL (7-18); Bicarbonate 26 mmol/L (21-32); Bilirubin Total 0.4 mg/dL (0.2-1.0); Glucose Level 117 mg/dL (74-106); Potassium 3.3 mmol/L (3.5-5.1); Sodium Level 138 mmol/L (136-145)
--- NOTE | 2020-11-25 22:24 | ER ---
Nurse's Notes [facility] Name: Lucien Calvillo Jr Age: 30 yrs Sex: Male : 1990 Arrival Date: 11/25/2020 Time: 16:51 Bed 23 Private MD: Diagnosis: Dizziness and giddiness Presentation: 11/25 17:09 Chief complaint: Patient states: "I was dizzy and hit my head 3 days ago and I haven't aa5 been right since then". Coronavirus screen: At this time, the client does not indicate any symptoms associated with coronavirus-19. Ebola Screen: Patient negative for fever greater than or equal to 101.5 degrees Fahrenheit, and additional compatible Ebola Virus Disease symptoms. Initial Sepsis Screen: Does the patient meet any 2 criteria? No. Patient's initial sepsis screen is negative. Does the patient have a suspected source of infection? No. Patient's initial sepsis screen is negative. Risk Assessment: Do you want to hurt yourself or someone else? Patient reports no desire to harm self or others. Onset of symptoms was October 2020. 17:09 Method Of Arrival: Ambulatory aa5 17:09 Acuity: GINNY 3 aa5 Historical: - Allergies: 17:11 Amoxicillin; aa5 - PMHx: 17:11 Bipolar disorder; CVA; MELAS; Seizures; aa5 - Immunization history:: Adult Immunizations unknown. - Social history:: Smoking status: Patient denies any tobacco usage or history of. - Family history:: not pertinent. Screenin:09 Abuse screen: Denies threats or abuse. Abuse screen: Denies threats or abuse. Denies ld1 injuries from another. Nutritional screening: No deficits noted. Tuberculosis screening: No symptoms or risk factors identified. Fall Risk Fall in past 12 months (25 points). Gait- Impaired (20 pts.). Total Medrano Fall Scale indicates High Risk Score (45 or more points). 21:09 Fall Risk Total Medrano Fall Scale indicates High Risk Score (45 or more points). Fall ld1 prevention measures have been instituted. Side Rails Up X 2 Placed Close to Nursing Station 1:1 Attendant Assigned Frequent Obs/Assessments Occuring Family Present and informed to notify staff if the need to leave the bedside As available patient and family educated on Fall Prevention Program and Strategies. Assessment: 21:09 General: Appears in no apparent distress. uncomfortable, Behavior is calm, cooperative, ld1 appropriate for age. Pain: Complains of pain in forehead and left eye Pain does not radiate. Pain currently is 9 out of 10 on a pain scale. Quality of pain is described as throbbing, Pain began 2-3 days ago. Is continuous. Neuro: Level of Consciousness is awake, alert, obeys commands, Oriented to person, place, time, situation. Cardiovascular: Capillary refill < 3 seconds Patient's skin is warm and dry. Respiratory: Airway is patent Respiratory effort is even, unlabored, Respiratory pattern is regular, symmetrical. GI: Abdomen is flat, non-distended. : No signs and/or symptoms were reported regarding the genitourinary system. EENT: Reports blurred vision. Derm: No signs and/or symptoms reported regarding the dermatologic system. Musculoskeletal: No signs and/or symptoms reported regarding the musculoskeletal system. 22:03 Reassessment: Patient appears in no apparent distress at this time. Patient is alert, ld1 oriented x 3, equal unlabored respirations, skin warm/dry/pink. 22:33 Reassessment: Patient appears in no apparent distress at this time. Patient and/or ld1 family updated on plan of care and expected duration. Pain level reassessed. Patient is alert, oriented x 3, equal unlabored respirations, skin warm/dry/pink. Vital Signs: 17:09 BP 128 / 98; Pulse 86; Resp 18 S; Temp 98.8(TE); Pulse Ox 97% on R/A; Weight 46.72 kg aa5 (R); Height 5 ft. 4 in. (162.56 cm); 21:09 BP 140 / 85; Pulse 71; Resp 18; Pulse Ox 100% on R/A; ld1 22:03 BP 136 / 77; Pulse 72; Resp 18; Pulse Ox 100% ; ld1 17:09 Body Mass Index 17.68 (46.72 kg, 162.56 cm) aa5 ED Course: 16:51 Patient arrived in ED. as 17:09 Arm band placed on. aa5 17:11 Triage completed. aa5 17:54 CT Head Brain wo Cont In Process Unspecified. EDMS 21:01 Negra Brennan MD is Attending Physician. ma2 21:09 Heather Ocampo, RN is Primary Nurse. ld1 21:09 Patient has correct armband on for positive identification. Placed in gown. Bed in low ld1 position. Call light in reach. Side rails up X2. Pulse ox on. NIBP on. 21:09 No provider procedures requiring assistance completed. ld1 22:23 Rubén Melgar MD is Referral Physician. ma2 22:35 IV discontinued, intact, bleeding controlled, No redness/swelling at site. Pressure tt3 dressing applied. 22:36 IV discontinued, intact. ld1 Administered Medications: No medications were administered Outcome: 22:23 Discharge ordered by . ma2 22:35 Discharged to home ambulatory. ld1 22:35 Condition: stable 22:35 Discharge instructions given to patient, Instructed on discharge instructions, follow up and referral plans. Demonstrated understanding of instructions, follow-up care. 22:39 Patient left the ED. ld1 Signatures: Dispatcher [employer] EDMS Joie Hoffman Audri, RN RN aa5 Negra Brennan MD MD ma2 Hung Jones tt3 Heather Ocampo, RN RN ld1
--- NOTE | 2020-11-25 22:24 | EDPHYS ---
Physician Documentation [facility] Name: Lucien Calvillo Jr Age: 30 yrs Sex: Male : 1990 Arrival Date: 11/25/2020 Time: 16:51 Bed 23 Private MD: ED Physician Negra Brennan HPI: 11/25 21:19 This 30 yrs old Male presents to ER via Ambulatory with complaints of ma2 Dizziness. 21:19 The patient presents with feeling faint. Onset: The symptoms/episode began/occurred ma2 gradually, 2 day(s) ago. Associated signs and symptoms: Pertinent negatives: ataxia, chest pain, confusion, focal weakness, palpitations, , syncope. Severity of symptoms: At their worst the symptoms were mild in the emergency department the symptoms are unchanged. The patient has experienced similar episodes in the past. Historical: - Allergies: 17:11 Amoxicillin; aa5 - PMHx: 17:11 Bipolar disorder; CVA; MELAS; Seizures; aa5 - Immunization history:: Adult Immunizations unknown. - Social history:: Smoking status: Patient denies any tobacco usage or history of. - Family history:: not pertinent. ROS: 21:19 Constitutional: Negative for fever, chills, and weight loss. ma2 21:19 All other systems are negative. Exam: 21:19 Constitutional: This is a well developed, well nourished patient who is awake, alert, ma2 and in no acute distress. Head/Face: Normocephalic, atraumatic. Eyes: Pupils equal round and reactive to light, extra-ocular motions intact. Lids and lashes normal. Conjunctiva and sclera are non-icteric and not injected. Cornea within normal limits. Periorbital areas with no swelling, redness, or edema. ENT: Nares patent. No nasal discharge, no septal abnormalities noted. Tympanic membranes are normal and external auditory canals are clear. Oropharynx with no redness, swelling, or masses, exudates, or evidence of obstruction, uvula midline. Mucous membranes moist. Neck: Trachea midline, no thyromegaly or masses palpated, and no cervical lymphadenopathy. Supple, full range of motion without nuchal rigidity, or vertebral point tenderness. No Meningismus. Chest/axilla: Normal chest wall appearance and motion. Nontender with no deformity. No lesions are appreciated. Cardiovascular: Regular rate and rhythm with a normal S1 and S2. No gallops, murmurs, or rubs. Normal PMI, no JVD. No pulse deficits. Respiratory: Lungs have equal breath sounds bilaterally, clear to auscultation and percussion. No rales, rhonchi or wheezes noted. No increased work of breathing, no retractions or nasal flaring. Abdomen/GI: Soft, non-tender, with normal bowel sounds. No distension or tympany. No guarding or rebound. No evidence of tenderness throughout. Back: No spinal tenderness. No costovertebral tenderness. Full range of motion. Skin: Warm, dry with normal turgor. Normal color with no rashes, no lesions, and no evidence of cellulitis. MS/ Extremity: Pulses equal, no cyanosis. Neurovascular intact. Full, normal range of motion. Neuro: Awake and alert, GCS 15, oriented to person, place, time, and situation. Cranial nerves II-XII grossly intact. Motor strength 5/5 in all extremities. Sensory grossly intact. Cerebellar exam normal. Normal gait. Vital Signs: 17:09 BP 128 / 98; Pulse 86; Resp 18 S; Temp 98.8(TE); Pulse Ox 97% on R/A; Weight 46.72 kg aa5 (R); Height 5 ft. 4 in. (162.56 cm); 21:09 BP 140 / 85; Pulse 71; Resp 18; Pulse Ox 100% on R/A; ld1 22:03 BP 136 / 77; Pulse 72; Resp 18; Pulse Ox 100% ; ld1 17:09 Body Mass Index 17.68 (46.72 kg, 162.56 cm) aa5 MDM: 21:02 Patient medically screened. ma2 21:19 Differential diagnosis: head injury, hypovolemia, near-syncope, vertigo. ma2 22:23 Data reviewed: vital signs, nurses notes. Counseling: I had a detailed discussion with ma2 the patient and/or guardian regarding: the historical points, exam findings, and any diagnostic results supporting the discharge/admit diagnosis, the presence of at least one elevated blood pressure reading (>120/80) during this emergency department visit, the need for outpatient follow up. Response to treatment: the patient's symptoms have markedly improved after treatment. 11/25 21:19 Order name: Tegretol Level; Complete Time: 22:23 ma2 11/25 21:19 Order name: CMP; Complete Time: 22:23 ma2 11/25 17:11 Order name: CT Head Brain wo Cont; Complete Time: 19:04 kb 11/25 21:19 Order name: CBC with Diff; Complete Time: 22:23 ma2 11/25 21:19 Order name: Urine Dipstick-Ancillary (obtain specimen); Complete Time: 21:50 ma2 11/25 21:47 Order name: Urine Dipstick-Ancillary; Complete Time: 21:52 EDMS Administered Medications: No medications were administered Disposition Summary: 11/25/20 22:23 Discharge Ordered Location: Home ma2 Condition: Stable ma2 Diagnosis - Dizziness and giddiness ma2 Followup: ma2 - With: - When: Tomorrow - Reason: Continuance of care Discharge Instructions: - Discharge Summary Sheet ma2 - Dizziness ma2 Forms: - Medication Reconciliation Form ma2 - Thank You Letter ma2 - Antibiotic Education ma2 - Prescription Opioid Use ma2 Prescriptions: - Diclofenac Sodium 75 mg Oral Tablet Sustained Release - take 1 tablet by ORAL route 2 times per day; 30 tablet; Refills: 0, Product ma2 Selection Permitted Signatures: Dispatcher [employer] Treasure Cook FNP-C FNP-Ariella Sanchez RN RN aa5 Negra Brennan MD MD ma2
[2020-11-26 03:37] VITALS: TEMP 98.8
[2020-11-26 03:38] VITALS: O2SAT 100
[2020-11-26 03:40] VITALS: BP 136/77
== END 2020-11-25 22:39 | disposition home or self-care (01) ==
LOC: ER 16:43
DX: R42 Dizziness and giddiness (principal); Z88.1 Allergy status to other antibiotic agents
CPT/HCPCS: 36415; 70450; 80053; 80156; 81003; 85025; 99283

== ENCOUNTER 2020-11-29 00:50 | Inpatient (IN) | payer OTHER ==
--- OUTSIDE RECORDS SUMMARY | 2020-11-29 00:58 | XMS REPORT | Continuity of Care Document ---
:1990 Author Organization [facility] t Address [address] [place] [address] Care Team Providers Name Role Phone Doctor Unassigned, [place] Attending Clinician Unavailable Aki ZACARIAS, E Attending [...] SEIZURES 00:00: Reji n 00 Active 11/30/2018 [facility] STROKE Diagnosis Active 2018-11-16 Mem oria SYMPTOMS 7- 23:36:00 l STROKE 00:00: [place] SYMPTOMS 00 Active 11/16/2018 [facility] MELAS Diagnosis Active 2019-09-20 Mem oria SYNDROME 7-20 16:42:00 l MELAS 00:00: [place] SYNDROME 00 Active 11/16/2018 [facility] STROKE Diagnosis Active 2019-03-24 Mem oria 7- 16:17:00 l STROKE 00:00: [place] 00 Active 10/28/2018 [facility] AMS Diagnosis Active 2018-10-26 Mem oria 10-26 03:37:00 l AMS 00:00: [place] 00 Active 10/26/2018 [facility] MELAS, Diagnosis Active 2019-09-20 Mem oria LACTIC 10-26 16:40:00 l ACIDOSIS MELAS, 00:00: Reji n STRK-LIKE LACTIC 00 EPISO ACIDOSIS STRK-LIKE EPISO Active 10/26/2018 [facility] CEREBRAL Diagnosis Active 2019-09-20 M emoria INFARCTION 16:40:00 l , CEREBRAL Reji n UNSPECIFIE INFARCTION D , UNSPECIFIE D Active [facility] Allergies, Adverse Reactions, Alerts Allergy Allergy Status [...] 8-03 Route: PO, l 16:00: Drug form: [place] 00 TAB, Q12H, Dosing Weight 38.56, kg, Start date: 11/30/18 11:00:00 CDT, Duration: 30 day, Stop date: 12/30/18 9:00:00 CDT Co-Q10 No Notes: Memoria 11-30 (Same As: l 14:00: Co-Enzyme Q10) L-Arginine No 4,000 mg, Me moria 11-30 Route: PO, l 14:00: Drug form: [place] 00 TAB, TID, Dosing Weight 38.56, kg, [...] as: l container 1 14:00: R-Gene 10) [place] Docusate No Notes: Memoria 11-17 (Same as: l 14:00: Colace) (Do Not Crush) sennosides, No Notes: Andres cindy [facility] 11-17 (Same as: l 14:00: Senokot) olanzapine [...] tab, PO, l Tablet 22:15: PRN, PRN [place] 42 Other -See Comment, PRN Q12, # 60 tab, 0 Refill(s) ubiquinone Yes 400 mg = 2 M emoria 200 mg oral - cap, PO, l capsule 20:46: Daily, # Reji n 00 120 cap, 0 Refill(s) melatonin 3 Yes 6 mg = 2 Me moria mg oral 7-09 tab, PO, l tablet 19:48: Bedtime, [place] 00 PRN Sleep, # 60 tab, 0 Refill(s) lacosamide No 50 mg = 1 Me moria 50 mg oral 7-09 tab, PO, l tablet 19:48: BID, # 7 [place] 00 tab, 0 Refill(s) olanzapine No 5 [...] IV 10-30 500 ml/hr, l 05:46: Infuse [place] 00 Over: 1 hr, Route: IV, 500, Drug form: INJ, ONCE, Priority: STAT, Dosing Weight 50 kg, Start date: 10/30/18 0:46:00 CDT, Stop date: 10/30/18 0:46:00 CDT, 0 Zyprexa No Notes: Memoria 10-30 (Same as: l 00:18: ZyPREXA) [place] 00 NS (Bolus) No 500 mL, Andres cindy IV 10-29 500 ml/hr, l 08:57: Infuse [place] 00 Over: 1 hr, Route: IV, 500, Drug form: INJ, ONCE, Priority: STAT, Dosing Weight 50 kg, Start date: 10/29/18 3:57:00 CDT, Stop date: 10/29/18 3:57:00 CDT, 0 Potassium No Notes: Memori a Chloride 10-29 (Same as: l 07:00: KCL) [place] 00 Infuse over 2 hours. D10W 980.75 No 980.75 mL, Memoria mL + sodium 10-28 Rate: 200 l chloride 23:03: ml/hr, [place] 23.4% IV 77 00 Infuse mEq over: [...] Memoria 10-28 Reconstitu l 19:48: te with [place] 00 1.2 ml of sterile water. Final concentrat ion = 20 mg/1ml. Maximum 40 mg/24 hours (Same As: Hiren). MEDICATION WASTE Product Size: 20 mg Product Wasted: _0__ mg Acyclovir No Notes: Memori a 10-28 (Same as: l 19:01: Zovirax) [place] 00 For adult patients only: Round to [...] Memoria 6-29 Same as l 23:00: Keppra [place] 00 Mix with 100 mL NS, LR or D5W MEDICATION WASTE Product Size: 500 mg Product Wasted: ___ mg R-Gene 10 4 No Notes: Andres cindy gm + empty 10-26 (Same as: l container 1 20:00: R-Gene 10) [place] ea 00 D10W 980.75 No 980.75 mL, Memoria mL + sodium -29 Rate: 150 l chloride 17:44: ml/hr, [place] 23.4% IV 77 00 Infuse mEq over: [...] Memori a 6- Route: l 13:58: IVPB, [place] 00 ONCE, kg, Start date: 10/26/18 8:58:00 [...] Memoria 6-29 (Same as: l 11:19: Ativan) [place] Haldol No Notes: Memoria 6-29 (Same as: [...] 10-26 Route: PO, l 10:41: Drug form: [place] 00 TAB, TID, kg, PRN Anxiety, Start date: 10/26/18 5:41:00 CDT, Duration: 30 day, Stop date: 11/25/18 5:40:00 CDT Saline No Notes: Memoria Flush 0.9% 10-26 (Same as: l 10:23: BD [place] 00 Posiflush) Haldol No 2.5 mg, Memoria 6 Route: IM, l 09:21: ONCE, kg, [place] 00 Start date: 10/26/18 4:21:00 CDT, Stop date: 10/26/18 4:21:00 CDT Haldol No 5 mg, Memoria 6 Route: IM, l 09:20: ONCE, kg, [place] Priority: STAT, Start date: 10/26/18 4:20:00 CDT, Stop date: 10/26/18 4:20:00 CDT Versed 2019-0 No 3 mg, Memoria 10-26 Route: IM, l 09:20: ONCE, kg, [place] 00 Start date: 10/26/18 4:20:00 CDT, Stop date: 10/26/18 4:20:00 CDT Versed 2019-0 No 3 mg, Memoria 10-26 Route: l 09:18: IVP, ONCE, [place] 00 kg, Priority: STAT, Start date: 10/26/18 4:18:00 CDT, Stop date: 10/26/18 4:18:00 CDT Ketamine 2019-0 No Notes: Memoria 10-26 (Same as: l 07:07: keTALAR) [place] 00 Vital Signs Vital Name Observation Time Observation Value Comments Source Respitory Rate 2018-12-01 17:30:00 Memori al [place] Systolic (mm Hg) 2018-12-01 17:30:00 Andres rial [place] Diastolic (mm Hg) 2018-12-01 17:30:00 Mem orial [place] Temperature Oral (F) 2018-12-01 17:30:00 97.7 F [facility] [place] Heart Rate 2018-12-01 17:30:00 [facility] [place] Heart Rate 2018-12-01 13:14:00 [facility] [place] Temperature Oral (F) 2018-12-01 13:14:00 98.2 F [facility] [place] Systolic (mm Hg) 2018-12-01 13:14:00 Andres rial [place] Diastolic (mm Hg) 2018-12-01 13:14:00 Mem orial [place] Respitory Rate 2018-12-01 13:14:00 Memori al [place] Heart Rate 2018-12-01 06:00:00 [facility] [place] Respitory Rate 2018-12-01 06:00:00 Memori al [place] Systolic (mm Hg) 2018-12-01 06:00:00 Andres rial [place] Diastolic (mm Hg) 2018-12-01 06:00:00 Mem orial [place] Temperature Oral (F) 2018-12-01 06:00:00 97.2 F [facility] [place] Height 2018-11-30 07:44:00 165.1 cm [facility] [place] Weight 2018-11-30 07:44:00 [facility] [place] BMI Calculated 2018-11-30 07:44:00 Memori al [place] Temperature Oral (F) 2018-11-23 00:48:00 97.9 F [facility] [place] Heart Rate 2018-11-23 00:48:00 [facility] [place] Respitory Rate 2018-11-23 00:48:00 Memori al [place] Systolic (mm Hg) 2018-11-23 00:48:00 Andres rial [place] Diastolic (mm Hg) 2018-11-23 00:48:00 Mem orial [place] Heart Rate 2018-11-22 20:18:00 [facility] [place] Respitory Rate 2018-11-22 20:18:00 Memori al [place] Systolic (mm Hg) 2018-11-22 20:18:00 Andres rial [place] Diastolic (mm Hg) 2018-11-22 20:18:00 Mem orial [place] Temperature Oral (F) 2018-11-22 20:18:00 98.1 F [facility] [place] Temperature Oral (F) 2018-11-22 16:20:00 97.8 F [facility] [place] Systolic (mm Hg) 2018-11-22 16:20:00 Andres rial [place] Diastolic (mm Hg) 2018-11-22 16:20:00 Mem orial [place] Heart Rate 2018-11-22 16:20:00 [facility] [place] Respitory Rate 2018-11-22 16:20:00 Memori al [place] Weight 2018-11-20 17:58:00 [facility] [place] BMI Calculated 2018-11-20 17:58:00 Memori al [place] Height 2018-11-20 17:58:00 165.1 cm [facility] [place] Height 2018-11-17 07:24:00 165.1 cm [facility] [place] Weight 2018-11-17 07:24:00 [facility] [place] BMI Calculated 2018-11-17 07:24:00 Memori al [place] Weight 2018-11-17 03:15:00 [facility] [place] BMI Calculated 2018-11-17 03:15:00 Memori al [place] Height 2018-11-17 03:15:00 165.1 cm [facility] [place] Systolic (mm Hg) 2018-11-05 20:41:00 Andres rial [place] Diastolic (mm Hg) 2018-11-05 20:41:00 Mem orial [place] Respitory Rate 2018-11-05 20:41:00 Memori al [place] Heart Rate 2018-11-05 20:41:00 [facility] [place] Temperature Oral (F) 2018-11-05 20:41:00 98.6 F [facility] [place] Heart Rate 2018-11-05 16:53:00 [facility] [place] Temperature Oral (F) 2018-11-05 16:44:00 98.9 F [facility] [place] Heart Rate 2018-11-05 16:44:00 [facility] [place] Respitory Rate 2018-11-05 16:44:00 Memori al [place] Systolic (mm Hg) 2018-11-05 16:44:00 Andres rial [place] Diastolic (mm Hg) 2018-11-05 16:44:00 Mem orial [place] Temperature Oral (F) 2018-11-05 13:03:00 98.8 F [facility] [place] Respitory Rate 2018-11-05 13:03:00 Memori al [place] Systolic (mm Hg) 2018-11-05 13:03:00 Andres rial [place] Diastolic (mm Hg) 2018-11-05 13:03:00 Mem orial [place] Height 2018-10-30 12:04:00 172.72 cm [facility] [place] Weight 2018-10-30 12:04:00 [facility] [place] Weight 2018-10-27 01:35:00 [facility] [place] BMI Calculated 2018-10-27 01:35:00 Memori al [place] Height 2018-10-27 01:35:00 172.72 cm [facility] [place] Weight 2018-10-26 13:00:00 [facility] [place] BMI Calculated 2018-10-26 13:00:00 Memori al [place] Height 2018-10-26 13:00:00 167.64 cm [facility] [place] Procedures This patient has no known procedures. Encounters Start End Encounter Admission Attending Care Care Encounter Source Date/Time Date/Time Type Type Clinicians Facility Department ID 2018-11-30 Inpatient U [facility] [id number] [facility] H 02:23:00 2018-11-16 Inpatient [facility] [id number] [facility] H 22:55:57 2020-02-03 2020-02-03 Orders Doctor ZHONG [id number] 00:00:00 00:00:00 Only [id number] 2019-12-19 2019-12-19 Orders Doctor TREVIN [id number] 00:00:00 00:00:00 Only [facility]assigned[id number]686 [id number] 2019-01-17 2019-01-17 Patient Lisha Prabhakar [id number] 00:00:00 00:00:00 Outreach [place] [id number] [place] [id number] [id number] 2018-12-19 2018-12-19 Patient Lisha Prabhakar [id number] 00:00:00 00:00:00 Outreach [place] [id number] [place] [id number] 2018-11-30 2018-12-01 Outpatient Jae [facility] [id number] 02:23:00 15:17:00 Rolly Noel 15 2018-11-16 2018-11-22 Outpatient Joe [facility] [id number] 22:08:00 21:05:00 Marcela 00 Abril 2018-11-17 2018-11-16 Inpatient U [facility] [id number] [facility] 00:33:00 22:08:00 2018-10-26 2018-11-05 Outpatient Ritika [facility] [id number] 00:57:22 19:45:00 Amrou 00 2018-10-26 2018-10-26 Inpatient U [facility] [id number] [facility] 05:23:00 00:57:00 Results Test Description Test Time Test Comments Results Result Comments Source ER SCREEN FOR HIV 1/2 2020-07-03 22:45:00 Test Item Value Reference Range Interpretation Comme nts HIV 1/2 AB (test code = SCRN NEGATIVE NEGATIVE This test is used for SCREENING HIV) purposes only. All reactive results are prelimenary and confirmation results will fo llow. CARBAMAZEPINE,[id number] 21:09:00 Test Item Value Reference Range Interpretation Comments CARBAMAZ (test code = CARBAMAZ) 5 UG/ML 4-12 COVID SYMPTOMATIC ER [id number] 21:05:00 Test Item Value Reference Range Interpretation Comments CORONAVIRUS (COVID-19)BY PCR (test NEGATIVE code = [id number]) INFLUENZA [id number] 20:40:00 Test Item Value Reference Range Interpretation Comments FLU A (test code = FLU A) NEGATIVE NEGATIVE FLU B (test code = FLU B) NEGATIVE NEGATIVE FLU INTERNAL POSITIVE CNTRL (test PASS PASS code = FLU IPC) INFLUENZA LOT # (test code = FLULOT) [id number] INFLUENZA EXPIRATION DATE (test code 41648012 = FLUEXP) URINE DRUG [id number] 19:04:00 Test Item Value Reference Range Interpretation [...] PCP (test code = NEGATIVE NEGATIVE BMTPCP) [id number] 18:45:00 Test Item Value Reference Range Interpretation [...] glucose = GLUCOSE) normal <100 MG/ DL- [employer] recommendation* * CALCIUM (test [...] of age is not validated by e elastic attacher zigzag an d may not represent t he patients true r enal function. [id number] 18:25:00 Test Item Value Reference Range Interpretation [...] 13.4 K/UL 1.2-7.2 H = NEUT) CHEM VSOKB7347-44-04 16:03:002.0[facility]annCARDIAC DPBATHY7909-51-91 10:22:0082[facility] HermannCHEM JILQP5924-50-27 10:22:000.3[facility] HermannCHEM JATHO6938-22-15 10:22:0025[facility] HermannCHEM OURAJ5882-17-47 10:22:22220 [facility]annCHEM VTUGI1204-47-90 10:22:008.2[facility] HermannCHEM PANEL 2018-11-30 10:22:003.4[facility] HermannCHEM DWUDH4897-23-88 10:22:006.7[facility] HermannCHEM ECQLI1830-83-58 10:22:0019[facility] HermannCHEM PFMUW2311-74-30 10:22:0019[facility] HermannCHEM PSUEZ3543-43-54 10:22:0072[facility]annCHEM IQGWN7634-54-46 10:22:50358Wgkanzna HermannCHEM AWQTQ4486-50-55 10:22:0087 [facility]annCHEM MMRVF3237-81-14 10:22:003.5[facility] HermannCHEM PANEL 2018-11-30 10:22:0010[facility] HermannCHEM VDVED2106-92-31 10:22:000.60[facility]annCHEM DQJYX6928-10-34 10:22:76774Stwlmkss HermannCHEM RUTWS5319-83-21 10:22:0013.5[facility] HermannCHEM OUVJD8972-56-62 10:22:00 Test Item Value Reference Range Interpretation Comments A/G Ratio (test code = A/G Ratio) 1.0 1 0.7-1.6 [facility]annCHEM FZQHN5173-77-98 10:22:003.3[facility] HermannCHEM PANEL 2018-11-30 10:22:00 Test Item Value Reference Range Interpretation Comments B/C Ratio (test code = B/C Ratio) 17 1 6-25 [facility] KibjqqoAPGTFATXGO7026-15-77 10:22:000.3[facility] HermannHEMATOLOGY 2018-11-30 10:22:006.9[facility] LgskhhbVNLLGEZZBX1313-68-01 10:22:0052.8[facility] WlynqvsVTWDQDJXGX5422-78-62 10:22:0036.3[facility] NjvtwauNAZIIRBGTU8567-89-01 10:22:002.9[facility] BbukaspYZKXDNBWBT4517-91-65 10:22:004.2[facility] [place] SCGIACJNEJ6339-45-92 10:22:000.5[facility] AeczvcfNBHVZSTPNA6777-24-82 10:22:003.5 [facility] VucqqojMOUDJZGGCI4285-70-11 10:22:000.5[facility] HermannHEMATOLOGY 2018-11-30 10:22:0035.6[facility] RjhoiyhXZANDXTQYP2700-17-96 10:22:0034.4[facility] KhgaalhSEKINBONFG3842-27-62 10:22:0012.2[facility] MfqzjpmCDPEYREWNW8681-55-64 10:22:0087.1[facility] BiladuuCKSBDPESAM7298-76-25 10:22:00 Test Item Value Reference Range Interpretation Comments MCH (test code = MCH) 31.0 pg 27.0-31.0 [facility] LogwjwjPKLZERYNPC2217-39-43 10:22:13569Znqpwdwu HermannHEMATOLOGY 2018-11-30 10:22:008.7[facility] LhpuvzgYCMGUVJFKH4842-15-45 10:22:0013.9[facility] RuzogksQLHRWHBKSV0825-90-60 10:22:007.9[facility] RevvtocOYSWPOCBFI0483-95-37 10:22:003.95[facility] HermannCHEM UXSKX9012-34-97 02:16:001.7[facility] HermannCHEM SQNDD0456-78-84 21:13:002.2[facility] HermannCHEM CLHJN9683-88-56 17:48:002.4 [facility]annURINE AND FXMZS4465-03-31 14:16:00Negative (11/18/18 9:16 AM) [facility] JBCKL9646-12-36 14:16:00Negative (11/18/18 9:16 AM) [facility] YHRDA4888-08-65 14:16:001[facility] AND IJRBQ3615-20-31 14:16:00Negative *NA*(11/18/18 9:16 AM)[facility] OINXS2337-77-68 14:16:00Negative (11/18/18 9:16 AM)[facility] AND PKPGU1167-99-33 14:16:00<1.0[facility]ann[facility] AND TLAPZ3465-40-29 14:16:00Light Yellow *NA*(11/18/18 9:16 AM)[facility] STOOL 2018-11-18 14:16:00Clear (11/18/18 9:16 AM)[facility] STOOL 2018-11-18 14:16:00 Test Item Value Reference Range Interpretation Comments UA Spec Grav (test code = UA Spec 1.005 1 Grav) [facility] AND PKHYP0545-15-18 14:16:00 Test Item Value Reference Range Interpretation Comments UA pH (test code = UA pH) 6.0 1 5.0-8.0 [facility] HermannCHEM BGCPJ9495-47-81 08:58:004.7[facility] HermannCHEM PANEL 2018-11-18 08:58:001.9[facility] BwqdwcjNMSXEPAFLBQE0418-75-04 08:58:0013.5 [facility] DounxrfVPYAWMPTLBEI0353-29-82 08:58:24839Anopsjsk HermannELECTROLYTES 2018-11-18 08:58:16424Ploubzku MesjznyNBWIPFXKUGJV2715-75-24 08:58:0012[facility] LnsasfvDUBHOJMSDHQJ3266-72-53 08:58:0023[facility] WerpdsvBLWHTPUWKMDG1786-66-72 08:58:003.5[facility] QiovicsXHRBEHWIBBEO7188-75-74 08:58:15312Kllvlvok [place] VDRARKSBOIWJ8459-34-11 08:58:000.67[facility] DhepgokUJMIYACRDEHU6236-82-70 08:58:96434Xaseuosu YnrjwodENVFMSMRRCOW8670-25-24 08:58:009.1[facility] MLJUFDQXJD2760-48-46 08:58:003.5[facility] JoigiqdFFGWGMLSYU5602-06-29 08:58:007.7 [facility] IhbltwkQDPHMGJYYF2621-84-50 08:58:0032.4[facility] HermannHEMATOLOGY 2018-11-18 08:58:002.8[facility] ErbillkHXBYXOFIFI4017-03-66 08:58:004.8[facility] BlpcbjvHXDFHCUGHF6362-91-27 08:58:000.7[facility] OrvggffHKAWGNMRXG0406-51-44 08:58:000.1[facility] GceigouCKPTMNMHBA8395-42-11 08:58:000.3[facility] OIZAINYFZW3521-89-53 08:58:000.7[facility] YmwuhqqDTOBMOAUFO0132-66-10 08:58:00 55.7[facility] VndnnowAHHHDAPHLI8906-29-87 08:58:009.4[facility] HermannHEMATOLOGY 2018-11-18 08:58:71036Xfiklwfs DemfktkUQKKTKKCGS2472-43-91 08:58:0013.3[facility] LcdwejbNAPLCSCOYV2501-00-57 08:58:0013.1[facility] FduvfuiQVAODXDOSB1800-37-22 08:58:004.24[facility] XwkngncJJKMWYVOJH3622-40-20 08:58:008.7[facility] IOIQNSYBJT0416-77-36 08:58:0035.2[facility] PolzzdoROIJYOSFRO6734-57-15 08:58:00 Test Item Value Reference Range Interpretation Comments MCH (test code = MCH) 30.8 pg 27.0-31.0 [facility] MsmnlbdTYQKNQKUAR9641-39-00 08:58:0087.6[facility] HermannHEMATOLOGY 2018-11-18 08:58:0037.1[facility] HermannCHEM TQELL1306-26-65 06:25:0072[facility] HermannCHEM YJNIR4353-51-12 06:25:86497Vuktkmuh HermannCHEM GPSXI7114-97-46 06:25:00 Test Item Value Reference Range Interpretation Comments A/G Ratio (test code = A/G Ratio) 1.0 1 0.7-1.6 [facility]annCHEM UJDQU3124-84-91 06:25:004.0[facility] HermannCHEM PANEL 2018-11-17 06:25:000.4[facility] HermannCHEM PQVVA9703-55-24 06:25:000.1[facility] HermannCHEM XDXZG3178-56-04 06:25:000.5[facility] HermannCHEM BDLFE3019-35-41 06:25:0026[facility] HermannCHEM HOJMY4740-70-89 06:25:0094[facility] HermannCHEM UVVTU4161-94-97 06:25:0028[facility] HermannCHEM YWUFZ6975-93-53 06:25:003.9 [facility]annCHEM HGAJC9236-22-44 06:25:007.9[facility] HermannCHEM PANEL 2018-11-17 06:25:0011.0[facility] HermannCARDIAC YGCNYSH0606-73-48 04:26:000.09 [facility]annCARDIAC NDPFIGO0759-54-04 04:26:0085[facility] HermannCHEM PANEL 2018-11-17 04:26:20156Hcwpvlzi HermannCHEM AQQIX1302-09-87 04:26:0026[facility] HermannCHEM AXYXM0638-88-08 04:26:25704Ztkunrds HermannCHEM SODZG9690-18-65 04:26:0016.5[facility] HermannCHEM IUNBJ6550-65-07 04:26:009.2[facility] HermannCHEM SAKNR0722-12-87 04:26:54879Omwzujmq HermannCHEM QBEBT8162-88-91 04:26:000.75 [facility]annCHEM WPYDG1513-04-80 04:26:003.5[facility] HermannCHEM PANEL 2018-11-17 04:26:0015[facility] HermannCHEM DJCPW8748-91-67 04:26:0099[facility] ObbquciQLSGXGHRDU3805-74-95 03:29:00 Test Item Value Reference Range Interpretation Comments INR (test code = INR) 1.06 1 0.85-1.17 [facility] GnlystcMACDVRXNST6565-68-43 03:29:00 Test Item Value Reference Range Interpretation Comments PT (test code = PT) 13.6 s 12.0-14.7 [facility] HjfyhgmWTTETSVNLV5589-89-22 03:29:0010.1[facility] HermannHEMATOLOGY 2018-11-17 03:29:0012.9[facility] UxrhqlsYWDKUHSBFO4711-95-88 03:29:00 Test Item Value Reference Range Interpretation Comments MCH (test code = MCH) 30.1 pg 27.0-31.0 [facility] AzifughDPZDQILHIK2814-47-08 03:29:0034.5[facility] HermannHEMATOLOGY 2018-11-17 03:29:0037.3[facility] YurxfjpRRNUGXFYZW8194-65-18 03:29:0087.3[facility] BsvcympGGLLCLPNJE9208-86-02 03:29:004.28[facility] GavknfeOTZHHITGXN3398-22-41 03:29:0013.8[facility] BrmrepyBLCPXEEEFL0199-47-66 03:29:90664Wphbwokt [place] PRMTWTDUIY1468-55-30 03:29:009.1[facility] LuqkjcgVJWYMCPORI8167-75-20 03:29:00 Test Item Value Reference Range Interpretation Comments PTT (test code = PTT) 32.3 s 22.9-35.8 [facility] XgoxzezDVEGFYGFRA9429-14-22 03:29:0060.4[facility] HermannHEMATOLOGY 2018-11-17 03:29:000.8[facility] TnbpdnkZTJSPVXSQY3095-38-88 03:29:002.7[facility] SjnckfeBCGYOZDLKA3469-71-71 03:29:0029.3[facility] XfppzhjXJGROWHCIT2925-95-38 03:29:006.8[facility] ByqejseRWVTOSDDRD9178-20-05 03:29:003.0[facility] UHHRIJTKEB6326-02-56 03:29:000.7[facility] FdhaeyjTGEXFIDVXW8430-11-84 03:29:006.1 [facility] KfjpniwNSHFATCRSF8154-62-37 03:29:000.1[facility] HermannHEMATOLOGY 2018-11-17 03:29:000.3[facility] CujppciCCCVMSXXFI3625-42-34 14:21:000.6[facility] MumnybgSECIGVPYQS8013-39-83 14:21:003.0[facility] WbbjsvpQSHBFFEMJH0759-47-48 14:21:006.5[facility] WgxllghPSGRWAYSND2783-73-86 14:21:0028.9[facility] WZVQWPKIQM9263-43-91 14:21:000.7[facility] RkwqrigBFOHUVAEMY6125-04-16 14:21:003.0 [facility] ChqiqfqEQRUCKKSDO4634-75-73 14:21:006.4[facility] HermannHEMATOLOGY 2018-11-04 14:21:000.1[facility] JqlekfrDCSLOLEJYB1369-39-47 14:21:000.3[facility] NujfzpsMXGZEMJGFF6803-38-74 14:21:0061.0[facility] XggqfpqXFRKCQTRZH2263-54-36 14:21:004.13[facility] PjygdouKGXJEPCLAZ5191-00-53 14:21:0010.4[facility] BDSHZBIPCK9676-33-90 14:21:0035.0[facility] LrtsoewHJTKSUEQOE3597-52-90 14:21:00 218[facility] GrfqbikNHQXJWTDVH7662-02-77 14:21:0013.3[facility] HermannHEMATOLOGY 2018-11-04 14:21:0012.5[facility] RigaagpMNXGACLCZD1183-94-27 14:21:008.5[facility] YylsvzuWMKNOOLVCG6774-30-32 14:21:0086.4[facility] SeeouzgQUOFHULMWD2739-30-97 14:21:0035.6[facility] TlkwddgIUNCJWEEQN1326-50-87 14:21:00 Test Item Value Reference Range Interpretation Comments MCH (test code = MCH) 30.2 pg 27.0-31.0 [facility]annCHEM LLTSF6311-75-53 11:06:005.4[facility]annCHEM PANEL 2018-11-04 11:06:001.8[facility]annCHEM TOVBH7880-13-56 11:06:46322Bgsvxide HermannCHEM QNPED8764-82-41 11:06:008.1[facility]annCHEM XZUZK3531-09-53 11:06:01925Hemassur HermannCHEM UOLEK9218-72-76 11:06:004.8[facility]annCHEM DVHEG3414-11-18 11:06:59129Hjirxdcn HermannCHEM FZGHD0283-63-33 11:06:0025 [facility]annCHE[facility] PPJQV5799-41-77 11:06:0015[facility]annCHEM PANEL 2018-11-04 11:06:000.65[facility]annCHEM MOYGK3322-86-02 11:06:20530Uvpfmkzo HermannCHEM TRPYY8925-63-87 11:06:0012.8[facility] HermannPARATHYROID PROFILE 2018-11-04 11:06:001.05[facility] HermannPARATHYROID ZDLOERA3783-95-02 11:06:00 1.05[facility]annCHEM UPPBZ7810-08-64 09:35:001.8[facility]annCHEM PANEL 2018-11-03 09:35:004.2[facility] VvufntlCTUPNLRXRSLD7749-22-32 09:35:0013.1 [facility] XbjwcryROQEUBYLVMTH4279-31-21 09:35:29104Mpbdsooe HermannELECTROLYTES 2018-11-03 09:35:008.0[facility] RpidcqcKRDMZAODJTSL0144-69-10 09:35:73491Kfarksfm UtnubndMHYCQZCXLCZD4779-35-37 09:35:0021[facility] GrilrmkQPJZZLMVJHWI1579-62-15 09:35:0010[facility] JcirqjcFZPQYUYEOZQV3150-74-07 09:35:000.72[facility] IQDMJGMUIWVX2259-84-51 09:35:0094[facility] JoxgfaaLNIDSCHNFAWT5856-96-48 09:35:00 142[facility] KnsmkjoOTKPCYGFIGWS5592-87-56 09:35:003.1[facility]annHEMATOLOGY 2018-11-03 09:35:000.2[facility] EzftntrDAXDXHYBUX4721-70-94 09:35:000.1[facility] YkvwqmgWWMPGGQUBX4418-55-90 09:35:0037.1[facility] AcriudkTCTATRPOEJ9337-24-09 09:35:008.0[facility] IfcvueiAZBFVLTKJN6520-66-38 09:35:0051.3[facility] DQQFYUHDID0388-51-30 09:35:000.7[facility] JgisdhxHUNTRNPMNM2719-01-08 09:35:003.1 [facility] NzouzqjIPLQRSHRID6252-17-07 09:35:002.7[facility]annHEMATOLOGY 2018-11-03 09:35:000.9[facility] MmtzbhwQUVLOBIGMW4438-91-31 09:35:004.3[facility] WkyihjiOZHWFYDHVQ2329-78-34 09:35:008.5[facility] QkkjixkOSQQSWCCTZ1321-94-18 09:35:003.70[facility] RvmeoexNXDJEGXQWS7905-10-91 09:35:0011.3[facility] MGBAAEDKKD4779-33-46 09:35:0031.5[facility] XwjpsgsLZTCECUVTP8208-87-47 09:35:00 9.4[facility] AxyqpkkUBIGPGOXBD6631-65-44 09:35:0012.9[facility] HermannHEMATOLOGY 2018-11-03 09:35:28896Yuzytozi JyzbfoxQKCERFYZWL0825-05-41 09:35:0035.9[facility] JynbxvnFPWRMTHOPT0860-33-30 09:35:00 Test Item Value Reference Range Interpretation Comments MCH (test code = MCH) 30.5 pg 27.0-31.0 [facility] PmsjhqnMGCDMGQICP8095-81-90 09:35:0085.1[facility] HermannPARATHYROID TBCMIZA7114-79-61 09:35:001.08[facility] HermannPARATHYROID YRIBMVI9999-81-91 09:35:001.09[facility]annCHEM XTQGV2301-99-37 08:48:004.1[facility]annCHEM KCWKE5908-40-23 08:48:001.5[facility]annCHEM KFGRN6519-27-63 08:48:31954 [facility]annCHEM BIJHM6028-30-01 08:48:008.9[facility]annCHEM PANEL 2018-11-02 08:48:0020[facility]annCHEM SXPUO6563-03-68 08:48:0014.0[facility]annCHEM GJOES1298-27-81 08:48:000.62[facility]annCHEM PJPKB9839-25-71 08:48:007[facility]annCHEM DYEVD1249-95-59 08:48:003.0[facility]annCHEM IMQPC3223-89-41 08:48:44047Umpiqfhx HermannCHEM FFCLK4979-00-96 08:48:39709 [facility]annCHEM HEIOJ2395-65-20 08:48:0098[facility]annCHEM PANEL 2018-11-02 08:48:003.6[facility] YbglbimGQFLKWZRSF8576-09-65 08:48:000.1[facility] OmmezzrQKAYQTYMWP4074-93-71 08:48:000.7[facility] DxxpthtIYAPVZYUDQ3328-52-76 08:48:003.5[facility] PcerkmyVDWXZYKLHW9005-61-23 08:48:004.4[facility] XMFNRMNPNP9613-15-63 08:48:008.5[facility] OglmmxsYMUERLFMWU7231-43-72 08:48:00 35.2[facility] BtwgqkoCIAOLMEFRL0319-47-26 08:48:0052.1[facility]annHEMATOLOGY 2018-11-02 08:48:000.3[facility] LqllkqpCILDBANKWK7737-30-14 08:48:000.7[facility] PjyxvafMOYSDMRYTS7234-92-42 08:48:003.0[facility] PuqwdgwJDTOVYBKOF2574-33-54 08:48:008.7[facility] RkrwufjYINWFLPITR8476-96-24 08:48:0013.0[facility] RXSJROSQXL4419-37-00 08:48:85179Zdyitwyx TmwtyqpPNZGHIFXQX7085-73-88 08:48:00 85.8[facility] JihslmxOVJCZQSLWY1024-72-11 08:48:00 Test Item Value Reference Range Interpretation Comments MCH (test code = MCH) 31.1 pg 27.0-31.0 [facility] WxnhbtoCHSXFZODFS1382-72-95 08:48:0036.2[facility]annHEMATOLOGY 2018-11-02 08:48:0012.2[facility] SaiiaykFFRSFOCPSZ2669-10-88 08:48:0033.6[facility] PeobuquIUICBGXOQV3798-10-87 08:48:008.5[facility] YsftrsxGOHQAGBIME3870-35-76 08:48:003.92[facility] HermannPARATHYROID EFYZGKP7786-46-53 08:48:001.15[facility] HermannPARATHYROID INFVBCV0851-30-73 08:48:001.11[facility]annCHEM PANEL 2018-11-02 00:46:004.7[facility]annCHEM WBNLJ7024-85-49 16:20:004.2[facility] KtziluqCOWRKQYHET1115-83-32 08:26:001.3[facility] PnwjbdcVJPSMFKWJQ3393-49-61 08:26:00 Test Item Value Reference Range Interpretation Comments Rohith Sosa TND (test code = Milio Tr 0730 1 TND) [facility]annCHEM [id number] 15:08:000.3[facility]annURINE AND STOOL 2018-10-30 15:08:00<1.0[facility] [id number] 15:08:00 Negative (10/30/18 10:08 AM)[facility] [id number] 15:08:00 Moderate *ABN*(10/30/18 10:08 AM)[facility] PKEFT5552-03-03 15:08:00Small *ABN*(10/30/18 10:08 AM)[facility] IQZFD9564-04-45 15:08:001[facility] [id number] 15:08:001[facility] URINE AND [id number] 15:08:00 Test Item Value Reference Range Interpretation Comments UA Spec Grav (test code = UA Spec 1.005 1 Grav) [facility] [id number] 15:08:00 Test Item Value Reference Range Interpretation Comments UA pH (test code = UA pH) 6.0 1 5.0-8.0 [facility] [id number] 15:08:00Negative *NA*(10/30/18 10:08 AM) [facility] [id number] 15:08:00Clear (10/30/18 10:08 AM) [facility] NESJS2954-10-06 15:08:00Light Yellow *NA*(10/30/18 10:08 AM)[facility]annCHEM [id number] 23:51:0094[facility]annCHEM PANEL 2018-10-28 23:51:0059[facility] EeahzwdLZBTGQBOPL0594-52-90 21:04:00Negative *NA*(10/28/18 4:04 PM)[facility] RBFQR7962-54-89 19:06:00Negative (10/28/18 2:06 PM)[facility] QWWLH4918-97-07 19:06:00Trace *ABN*(10/28/18 2:06 PM)[facility] QYFPX5423-93-33 19:06:00None Seen (10/28/18 2:06 PM)[facility] [id number] 19:06:00Negative *NA*(10/28/18 2:06 PM)[facility] [id number] 19:06:00Negative (10/28/18 2:06 PM)[facility] OQSSR2477-14-99 19:06:000.2[facility] [id number] 19:06:00Negative (10/28/18 2:06 PM)[facility] YHHQV8692-08-61 19:06:00Negative (10/28/18 2:06 PM)[facility] GMZHT1857-70-47 19:06:00Negative *NA*(10/28/18 2:06 PM)[facility] [id number] 19:06:00Clear (10/28/18 2:06 PM)[facility] URINE AND [id number] 19:06:00 Test Item Value Reference Range Interpretation Comments UA pH (test code = UA pH) 5.5 1 5.0-8.0 [facility] [id number] 19:06:00 Test Item Value Reference Range Interpretation Comments UA Spec Grav (test code = UA Spec 1.010 1 Grav) [facility] [id number] 19:06:00Yellow *NA*(10/28/18 2:06 PM) [facility] [id number] 19:06:00<1[facility] [id number] 19:06:001[facility]annDRUG [id number] 21:34:00See Note (10/26/18 4:34 PM)[facility]annDR[facility] [id number] 21:34:00Negative *NA*(10/26/18 4:34 PM)[facility] [id number] 21:34:00Negative *NA*(10/26/18 4:34 PM)[facility] [id number] 21:34:00Negative *NA*(10/26/18 4:34 PM)[facility] [id number] 21:34:00Negative *NA*(10/26/18 4:34 PM)[facility]annDR[facility] [id number] 21:34:00Positive *ABN*(10/26/18 4:34 PM)[facility]annDR[facility] [id number] 21:34:00Negative *NA*(10/26/18 4:34 PM)[facility] [id number] 21:34:00Negative *NA*(10/26/18 4:34 PM)[facility] [id number] 21:34:00Clear (10/26/18 4:34 PM)[facility] [id number] 21:34:00 Test Item Value Reference Range Interpretation Comments UA Spec Grav (test code = UA Spec 1.026 1 Grav) [facility] [id number] 21:34:00Yellow *NA*(10/26/18 4:34 PM) [facility] [id number] 21:34:00Negative *NA*(10/26/18 4:34 PM) [facility] [id number] 21:34:00 Test Item Value Reference Range Interpretation Comments UA pH (test code = UA pH) 5.0 1 5.0-8.0 [facility] [id number] 21:34:00<1.0[facility] [id number] 21:34:00Negative (10/26/18 4:34 PM)[facility] [id number] 21:34:00<1[facility] [id number] 21:34:00 Negative (10/26/18 4:34 PM)[facility] [id number] 21:34:00 Negative (10/26/18 4:34 PM)[facility] [id number] 21:34:001 [facility]annBACTERIAL - [id number] 16:26:00Negative (10/26/18 11:26 AM)[facility]annCHEM [id number] 16:26:0039.0[facility]annCHEM PANEL 2018-10-26 16:26:00 Test Item Value Reference Range Interpretation Comments A/G Ratio (test code = A/G Ratio) 0.9 1 0.7-1.6 [facility]CHE[facility] [id number] 16:26:003.7[facility]annCHEM PANEL 2018-10-26 16:26:0091[facility]annCHEM [id number] 16:26:000.3[facility]annCHEM [id number] 16:26:0025[facility]annCHEM YFXDI2492-09-99 16:26:000.1[facility]annCHEM NPHGY3752-79-73 16:26:000.2[facility]annCHEM [id number] 16:26:0028[facility]annCHEM ZPSWE2531-47-74 16:26:003.5 [facility]annCHE[facility] [id number] 16:26:007.2[facility]annCHEM PANEL 2018-10-26 16:26:0058[facility]annCHEM [id number] 16:26:0062[facility]annCHEM [id number] 10:46:00 Test Item Value Reference Range Interpretation Comments A/G Ratio (test code = A/G Ratio) 1.0 1 0.7-1.6 [facility]CHE[facility] [id number] 10:46:00 Test Item Value Reference Range Interpretation Comments B/C Ratio (test code = B/C Ratio) 27 1 6-25 [facility]CHE[facility] [id number] 10:46:003.9[facility]annCHEM PANEL 2018-10-26 10:46:0030[facility]annCHEM [id number] 10:46:000.3[facility]annCHEM [id number] 10:46:0097[facility]annCHEM [id number] 10:46:004.0[facility]annCHEM XUPLQ5722-54-92 10:46:0023[facility]annCHEM EQWGR8296-20-44 10:46:007.9[facility]annCHEM [id number] 10:46:00<0.1 [facility] OghnlblDKLEMG8107-36-55 10:46:00 Test Item Value Reference Range Interpretation Comments VLDL (test code = VLDL) 24 1 [facility] MeauoxrTAGEJU0649-60-91 10:46:0078[facility] EvqwhjjNGXTVA9818-64-94 10:46:07612Jbfutppb SrxgormOMJBID3599-96-34 10:46:0034Memori[facility] HermannLIPIDS 2018-10-26 10:46:84459Rjouwkdx KarnzmcEPAGSF9999-14-50 10:46:00 Test Item Value Reference Range Interpretation Comments CHD Risk (test code = CHD Risk) 4.00 1 4.00-7.30 [facility] [id number] 10:46:005.4[facility]
[2020-11-29 01:33] LABS: Urine Blood 3+ (Negative); Urine Glucose Negative (Negative); Urine Protein 3+ (Negative); Urine Specific Gravity >=1.030 (1.005-1.030); Urine pH 5.5 (5.0-7.0)
[2020-11-29] MEDS ORDERED: METOPROLOL TARTRATE 5 MG/5 ML INJ IV ONE ×2 (01:55→02:00)
[2020-11-29 02:12] LABS: Barbiturates NEGATIVE (NEGATIVE); Benzodiazepines NEGATIVE (NEGATIVE); Cocaine NEGATIVE (NEGATIVE); METHAMPHETAM NEGATIVE (NEGATIVE); Methadone NEGATIVE (NEGATIVE); Opiates NEGATIVE (NEGATIVE); Phencyclidine NEGATIVE (NEGATIVE); THC Cannibis POSITIVE (NEGATIVE)
[2020-11-29 03:25] LABS: Absolute Lymphocytes (CBC) 1.2 K/uL (0.7-4.9); Basophils % 0.3 % (0-1.3); Hematocrit 46.2 % (39.6-49.0); Lymphocytes % 3.5 % (15.3-44.8); MPV 9.3 fL (7.6-11.3); RBC Red Blood Cell Count 5.03 M/uL (4.33-5.43)
[2020-11-29 03:31] LABS: Protime INR 1.13
[2020-11-29 03:45] LABS: ALT/SGPT 63 U/L (12-78); AST/SGOT 178 U/L (15-37); Albumin 4.4 g/dL (3.4-5.0); Alkaline Phosphatase 111 U/L (45-117); BUN Blood Urea Nitrogen 28 mg/dL (7-18); Bicarbonate 16 mmol/L (21-32); Bilirubin Direct 0.2 mg/dL (0-0.2); Bilirubin Total 0.5 mg/dL (0.2-1.0); Glucose Level 180 mg/dL (74-106); Potassium 3.6 mmol/L (3.5-5.1); Protein, Total 8.6 g/dL (6.4-8.2); Sodium Level 139 mmol/L (136-145)
[2020-11-29] MEDS ORDERED: PIPERACIL/TAZO 3.375 GM VIAL IV ONE (03:54)
[2020-11-29] MEDS ORDERED: NA CHLORIDE 0.9% 250 ML ONE (03:54)
[2020-11-29 04:07] LABS: Blood Morphology Comment NOT SEEN (NOT SEEN); Platelet Estimate ADEQ
[2020-11-29] MEDS ORDERED: NA CHLORIDE 0.9% 500 ML ONE ×2 (04:11→13:23)
[2020-11-29] MEDS ORDERED: CEFTRIAXONE/SWI 1gm 1 GM/10 ML SYR ONE (04:27)
[2020-11-29] MEDS ORDERED: NA CHLORIDE 0.9% 1,000 ML ONE ×2 (04:43→16:58)
--- NOTE | 2020-11-29 06:49 | EDPHYS ---
Physician Documentation [facility] Name: Lucien Calvillo Jr Age: 30 yrs Sex: Male : 1990 Arrival Date: 11/29/2020 Time: 00:52 Bed 3 Private MD: ED Physician Garry Moore HPI: 11/29 03:52 This 30 yrs old Male presents to ER via EMS with complaints of Seizure. pkl 03:52 The patient presents with a history of multiple seizures, an unknown number. Character pkl of seizure(s): Loss of consciousness: the patient experienced loss of consciousness, Motor activity: generalized. Seizure onset: just prior to arrival. Associated injury: The patient did not suffer any apparent associated injury. Historical: - Allergies: 00:56 Amoxicillin; em - PMHx: 00:56 Bipolar disorder; CVA; MELAS; Seizures; em - Immunization history:: Adult Immunizations unknown. - Social history:: Smoking status: unknown. ROS: 03:52 Eyes: Negative for injury, pain, redness, and discharge, ENT: Negative for injury, pkl pain, and discharge, Neck: Negative for injury, pain, and swelling, Cardiovascular: Negative for chest pain, palpitations, and edema, Respiratory: Negative for shortness of breath, cough, wheezing, and pleuritic chest pain, Abdomen/GI: Negative for abdominal pain, nausea, vomiting, diarrhea, and constipation, Back: Negative for injury and pain, : Negative for injury, bleeding, discharge, and swelling, MS/Extremity: Negative for injury and deformity, Skin: Negative for injury, rash, and discoloration. 03:52 Neuro: Positive for seizure activity. Exam: 03:52 Head/Face: Normocephalic, atraumatic. Eyes: Pupils equal round and reactive to light, pkl extra-ocular motions intact. Lids and lashes normal. Conjunctiva and sclera are non-icteric and not injected. Cornea within normal limits. Periorbital areas with no swelling, redness, or edema. ENT: Nares patent. No nasal discharge, no septal abnormalities noted. Tympanic membranes are normal and external auditory canals are clear. Oropharynx with no redness, swelling, or masses, exudates, or evidence of obstruction, uvula midline. Mucous membranes moist. Neck: Trachea midline, no thyromegaly or masses palpated, and no cervical lymphadenopathy. Supple, full range of motion without nuchal rigidity, or vertebral point tenderness. No Meningismus. Chest/axilla: Normal chest wall appearance and motion. Nontender with no deformity. No lesions are appreciated. Cardiovascular: Regular rate and rhythm with a normal S1 and S2. No gallops, murmurs, or rubs. Normal PMI, no JVD. No pulse deficits. Respiratory: Lungs have equal breath sounds bilaterally, clear to auscultation and percussion. No rales, rhonchi or wheezes noted. No increased work of breathing, no retractions or nasal flaring. Abdomen/GI: Soft, non-tender, with normal bowel sounds. No distension or tympany. No guarding or rebound. No evidence of tenderness throughout. Back: No spinal tenderness. No costovertebral tenderness. Full range of motion. Skin: Warm, dry with normal turgor. Normal color with no rashes, no lesions, and no evidence of cellulitis. MS/ Extremity: Pulses equal, no cyanosis. Neurovascular intact. Full, normal range of motion. 03:52 Neuro: Orientation: unable to test, the patient is post-ictal, Mentation: unable to test, the patient is post-ictal, Cranial nerves: unable to test, the patient is post-ictal, Motor: moves all fours, Sensation: unable to test, the patient is post-ictal. Vital Signs: 00:54 BP 145 / 93; Pulse 152; Resp 26; Temp 99.2(R); Pulse Ox 97% on R/A; em 01:46 BP 124 / 106; Pulse 124; em 01:48 BP 133 / 67; Pulse 123; Resp 32; Pulse Ox 98% ; ea 03:26 BP 121 / 62; Pulse 102; Resp 24; Pulse Ox 100% on R/A; em 04:44 BP 108 / 66; Pulse 92; Resp 21; Pulse Ox 100% ; ea 06:12 BP 109 / 55; Pulse 106; Resp 18; Pulse Ox 99% on R/A; em 07:15 BP 108 / 64; Pulse 95; Resp 16 S; Temp 98.0(TE); Pulse Ox 98% on R/A; aa5 Kendra Coma Score: 00:56 Eye Response: spontaneous(4). Verbal Response: confused(4). Motor Response: obeys em commands(6). Total: 14. MDM: 01:07 Patient medically screened. pkl 03:52 Data reviewed: vital signs, nurses notes, lab test result(s), EKG, radiologic studies, pkl plain films. 06:43 ED course: Talked to Dr. Lentz. Admit. pkl 11/29 01:04 Order name: Acetaminophen em 11/29 01:04 Order name: Basic Metabolic Panel; Complete Time: 03:50 em 11/29 01:04 Order name: CBC with Diff; Complete Time: 06:37 em 11/29 01:04 Order name: ETOH Level; Complete Time: 03:50 em 11/29 01:04 Order name: Hepatic Function; Complete Time: 03:50 em 11/29 01:04 Order name: PT-INR; Complete Time: 03:50 em 11/29 01:04 Order name: Ptt, Activated; Complete Time: 03:50 em 11/29 01:04 Order name: Salicylate; Complete Time: 03:50 em 11/29 01:04 Order name: Urine Drug Screen; Complete Time: 03:50 em 11/29 01:13 Order name: Troponin (emerg Dept Use Only); Complete Time: 03:50 pkl 11/29 01:24 Order name: Acetaminophen Level; Complete Time: 03:50 EDMS 11/29 01:33 Order name: Urine Dipstick-Ancillary; Complete Time: 03:50 EDMS 11/29 02:43 Order name: SARS-COV-2 RT PCR; Complete Time: 03:50 EDMS 11/29 01:15 Order name: XRAY CXR (1 view) pkl 11/29 02:38 Order name: CT Head Brain wo Cont ea 11/29 03:30 Order name: Manual Differential; Complete Time: 06:37 EDMS 11/29 03:34 Order name: Blood Culture Adult (2) em 11/29 03:34 Order name: Lactate; Complete Time: 06:37 em 11/29 03:34 Order name: Procalcitonin; Complete Time: 06:37 em 11/29 03:35 Order name: Blood Culture EDMS / 09:19 Order name: Brain W/Wo Cont EDMS / 12:10 Order name: ABG Arterial Blood Gas EDMS 11/29 16:29 Order name: Troponin I EDMS 08/02 16:34 Order name: Lactate Sepsis 2 HR Follow-up [facility] 11/29 01:04 Order name: EKG; Complete Time: 01:24 em 08 01:04 Order name: EKG - Nurse/Tech; Complete Time: 01:19 em 08 01:04 Order name: IV Saline Lock; Complete Time: 01:20 em 08 01:04 Order name: Labs collected and sent; Complete Time: 08:39 em 11/29 01:04 Order name: Suicide Screening ([place]); Complete Time: 01:20 em 08 01:04 Order name: Urine Dipstick-Ancillary (obtain specimen); Complete Time: 01:18 em Administered Medications: 01:19 Drug: NS 0.9% 1000 ml Route: IV; Rate: 1 bolus; Site: left forearm; em 03:02 Follow up: IV Status: Completed infusion; IV Intake: 1000ml em 01:36 Drug: Lopressor (metoprolol) 5 mg Route: IVP; Site: left forearm; ea 01:48 Drug: Lopressor (metoprolol) 5 mg Route: IVP; Site: left forearm; ea 01:58 Drug: Lopressor (metoprolol) 5 mg Route: IVP; Site: left forearm; ea 03:25 Follow up: Response: No adverse reaction; Cardiac rhythm changed em 04:07 Drug: Rocephin (cefTRIAXone) 1 grams Route: IV; Rate: calculated rate; Site: left em forearm; 05:16 Follow up: Response: No adverse reaction; IV Status: Completed infusion; IV Intake: 10mlem 05:16 Drug: NS 0.9% 1000 ml Route: IV; Rate: 100 ml/hr; Site: left forearm; em 07:29 Follow up: IV Status: Infusion continued aa5 06:57 Drug: Keppra (levETIRAcetam) 1000 mg Route: IV; Rate: calculated rate; Site: left em forearm; 07:13 Follow up: Response: No adverse reaction; IV Status: Completed infusion aa5 Disposition Summary: 11/29/20 06:47 Hospitalization Ordered Hospitalization Status: Inpatient Admission pkl Provider: Nomi Lentz pkerin Condition: Stable pkl Problem: new pkl Symptoms: are unchanged pkl Bed/Room Type: Standard pkl Location: Telemetry/MedSurg (Inpatient)(11/29/20 19:31) dw Room Assignment: 225(11/29/20 19:31) dw Diagnosis - Sepsis. Tachycardia. Elevated Troponin. Seizures pkl Forms: - Medication Reconciliation Form pkl - SBAR form pkl Signatures: Dispatcher [employer] EDMS Shellie Sullivan RN RN dw Lam, Pin, MD MD pkl Chuck Carmona RN RN em Calderon, Audri, RN RN aa5 Gela Goel RN RN ea Corrections: (The following items were deleted from the chart) 01:51 01:24 CORONAVIRUS+MR.LAB.BRZ ordered. EDMS EDMS 09:19 06:55 Brain With Cont+MRI.RAD.BRZ ordered. EDMS EDMS 13:46 06:47 Telemetry/MedSurg (Inpatient) pkl aa5 13:46 06:47 pkl aa5 19:31 13:46 [facility] ER HOLD aa5 dw 19:31 13:46 ERHOLD- aa5 dw
--- NOTE | 2020-11-29 06:49 | ER ---
Nurse's Notes [facility] Name: Lucien Calvillo Jr Age: 30 yrs Sex: Male : 1990 Arrival Date: 11/29/2020 Time: 00:52 Bed 3 Private MD: Diagnosis: Sepsis. Tachycardia. Elevated Troponin. Seizures Presentation: 11/29 00:54 Chief complaint: EMS states: called out for seizures, family witnessed 3 seizures and em EMS witnessed 4, pt was given 3 mg Ativan IVP, pt was sinus tach at 160 BPM. Coronavirus screen: Client denies travel out of the [place] in the last 14 days. Ebola Screen: Patient negative for fever greater than or equal to 101.5 degrees Fahrenheit, and additional compatible Ebola Virus Disease symptoms Patient denies exposure to infectious person. Patient denies travel to an Ebola-affected area in the 21 days before illness onset. No symptoms or risks identified at this time. Initial Sepsis Screen: Does the patient meet any 2 criteria? RR > 20 per min. HR > 90 bpm. Does the patient have a suspected source of infection? No. Patient's initial sepsis screen is negative. Risk Assessment: Do you want to hurt yourself or someone else? Patient reports no desire to harm self or others. Onset of symptoms was November 29, 2020. 00:54 Method Of Arrival: EMS: [facility] em 00:54 Acuity: GINNY 2 em Historical: - Allergies: 00:56 Amoxicillin; em - PMHx: 00:56 Bipolar disorder; CVA; MELAS; Seizures; em - Immunization history:: Adult Immunizations unknown. - Social history:: Smoking status: unknown. Screenin:54 Abuse screen: Denies threats or abuse. Nutritional screening: No deficits noted. em Tuberculosis screening: No symptoms or risk factors identified. Fall Risk None identified. Assessment: 00:54 General: Appears uncomfortable, ill, emaciated, malnourished, Behavior is calm, quiet. em Pain: Denies pain. Neuro: Level of Consciousness is awake, alert, obeys commands, Oriented to person. Cardiovascular: Capillary refill < 3 seconds Patient's skin is warm and dry. Respiratory: Airway is patent Respiratory effort is even, unlabored, Respiratory pattern is regular, symmetrical. GI: Parent/caregiver reports the patient having nausea, vomiting. Derm: Skin is intact, is healthy with good turgor, Skin is pink, warm \T\ dry. Musculoskeletal: Capillary refill < 3 seconds. 01:15 Reassessment: Patient and/or family updated on plan of care and expected duration. Pain ea level reassessed. Patient is alert, oriented x 3, equal unlabored respirations, skin warm/dry/pink. 02:23 Reassessment: Susie (Sister) [phone]. ea 03:20 Reassessment: Patient appears in no apparent distress at this time. wheeled to CT via em stretcher. 04:40 Reassessment: resting calmly with eyes closed, respirations even and unlabored, skin em pink warm and dry. 05:50 Reassessment: resting calmly with eyes closed, respirations even and unlabored, skin em pink warm and dry. 07:15 Neuro: Level of Consciousness is obeys commands, confused, Oriented to person. aa5 Respiratory: Airway is patent Respiratory effort is even, unlabored, Respiratory pattern is regular, symmetrical. Derm: Skin is pink, warm \T\ dry. 07:27 Reassessment: Attempted to contact pt's sister, Susie Contreras (next of kin) to aa5 attempt to obtain consent for MRI, left voice mail .. 07:50 Reassessment: Pt's sister called back and consent from Pt's sister (Susie Contreras) aa5 was obtained [id number]-skowq, witnessed by me and Sandra Lozano RN. . 08:38 Reassessment: Pt to MRI via stretcher . aa5 09:37 Reassessment: Pt back from MRI via stretcher .. aa5 09:38 Neuro: Level of Consciousness is awake, obeys commands, confused, Oriented to person. aa5 Respiratory: Airway is patent Respiratory effort is even, unlabored, Respiratory pattern is regular, symmetrical. Derm: Skin is pink, warm \T\ dry. 20:10 Reassessment: Patient and/or family updated on plan of care and expected duration. Pain ea level reassessed. Patient is alert, oriented x 3, equal unlabored respirations, skin warm/dry/pink. Pt admitted to second floor. Report given to receiving nurse. Pt left ED via wheelchair tolerating well. Vital Signs: 00:54 BP 145 / 93; Pulse 152; Resp 26; Temp 99.2(R); Pulse Ox 97% on R/A; em 01:46 BP 124 / 106; Pulse 124; em 01:48 BP 133 / 67; Pulse 123; Resp 32; Pulse Ox 98% ; ea 03:26 BP 121 / 62; Pulse 102; Resp 24; Pulse Ox 100% on R/A; em 04:44 BP 108 / 66; Pulse 92; Resp 21; Pulse Ox 100% ; ea 06:12 BP 109 / 55; Pulse 106; Resp 18; Pulse Ox 99% on R/A; em 07:15 BP 108 / 64; Pulse 95; Resp 16 S; Temp 98.0(TE); Pulse Ox 98% on R/A; aa5 Kendra Coma Score: 00:56 Eye Response: spontaneous(4). Verbal Response: confused(4). Motor Response: obeys em commands(6). Total: 14. ED Course: 00:52 Patient arrived in ED. em 00:54 Patient has correct armband on for positive identification. Placed in gown. Bed in low em position. Call light in reach. Side rails up X2. teletypesetter monitor on. Pulse ox on. NIBP on. 00:54 Maintain EMS IV. Dressing intact. Good blood return noted. Site clean \T\ dry. Gauge \T\ em site: 22 R hand. 00:56 Triage completed. em 00:56 Arm band placed on. em 01:04 Chuck Carmona, DEANN is Primary Nurse. em 01:07 Garry Moore MD is Attending Physician. pkl 01:15 Inserted saline lock: 22 gauge in right hand, using aseptic technique. ea 01:18 Inserted saline lock: 22 gauge in left forearm, using aseptic technique. em 01:51 Seizure precautions initiated. ea 01:57 XRAY CXR (1 view) In Process Unspecified. EDMS 03:25 CT Head Brain wo Cont In Process Unspecified. EDMS 06:45 Nomi Lentz is Hospitalizing Provider. pkl 06:52 patient's sister Margoth [phone]. mw2 08:18 Primary Nurse role handed off by Chuck Carmona, DEANN bd 08:36 Ariella Santos, DEANN is Primary Nurse. aa5 09:00 No provider procedures requiring assistance completed. Patient admitted, IV remains in aa5 place. Administered Medications: 01:19 Drug: NS 0.9% 1000 ml Route: IV; Rate: 1 bolus; Site: left forearm; em 03:02 Follow up: IV Status: Completed infusion; IV Intake: 1000ml em 01:36 Drug: Lopressor (metoprolol) 5 mg Route: IVP; Site: left forearm; ea 01:48 Drug: Lopressor (metoprolol) 5 mg Route: IVP; Site: left forearm; ea 01:58 Drug: Lopressor (metoprolol) 5 mg Route: IVP; Site: left forearm; ea 03:25 Follow up: Response: No adverse reaction; Cardiac rhythm changed em 04:07 Drug: Rocephin (cefTRIAXone) 1 grams Route: IV; Rate: calculated rate; Site: left em forearm; 05:16 Follow up: Response: No adverse reaction; IV Status: Completed infusion; IV Intake: 10mlem 05:16 Drug: NS 0.9% 1000 ml Route: IV; Rate: 100 ml/hr; Site: left forearm; em 07:29 Follow up: IV Status: Infusion continued aa5 06:57 Drug: Keppra (levETIRAcetam) 1000 mg Route: IV; Rate: calculated rate; Site: left em forearm; 07:13 Follow up: Response: No adverse reaction; IV Status: Completed infusion aa5 Intake: 03:02 IV: 1000ml; Total: 1000ml. em 05:16 IV: 10ml; Total: 1010ml. em Outcome: 06:47 Decision to Hospitalize by Provider. pkl 09:00 Admitted to ER Hold. Please see [facility] for further documentation. aa5 09:00 Condition: stable 09:00 Instructed on the need for admit, to family 20:12 Patient left the ED. ea Signatures: Dispatcher [employer] Kenia Metcalf Pin, MD MD pkl Munoz, Edgar RN RN Ariella Gar RN RN [facility] Gela Goel RN RN Venita Tamez mw2 Corrections: (The following items were deleted from the chart) 07:28 07:27 Response: No adverse reaction; IV Status: Completed infusion aa5 aa5 07:29 07:00 IV Status: Completed infusion; IV Intake: 1000ml aa5 aa5
[2020-11-29] MEDS ORDERED: NA CHLORIDE 0.9% 100 ML ONE (07:14)
[2020-11-29] MEDS ORDERED: LEVETIRACETAM 500 MG/5 ML VIAL IV ONE (07:14)
--- NOTE | 2020-11-29 08:57 | P.HP ---
Certification for Inpatient Patient admitted to: Inpatient With expected LOS: >2 Midnights Practitioner: I am a practitioner with admitting privileges, knowledge of patient current condition, hospital course, and medical plan of care. Services: Services provided to patient in accordance with Admission requirements found in Title 42 Section 412.3 of the Code of Federal Regulations Patient History Date of Service: 11/29/20 Reason for admission: Seizures History of Present Illness: 30-year-old gentleman with a history of bipolar disorder, CVA, seizures, MELAS was brought to the emergency department due to a seizure episode. Per report family witnessed 3 seizure episodes, called EMS, EMS witness for episodes and give him 3 mg of IV Ativan on the way to the emergency department. Patient noted to be tachycardic with heart rate up to 160. He was given 3 doses of IV Lopressor which improved his heart rate. Patient was awake but slow to respond during my examination in the ED. He is admitted for further management. Allergies amoxicillin [Amoxicillin] Allergy (Mild, Verified 11/29/20 15:55) Itching/Hives/Rash - Past Medical/Surgical History -: CVA -: MELAS -: Bipolar disorder -: Seizure disorder - Family History Mother -: Cancer - Social History Smoking Status: Never smoker Alcohol use: No CD- Drugs: No Place of Residence: Home Review of Systems Other: Patient denied any fever, no nasal congestion, no chest pain, no shortness of breath, no nausea or vomiting or diarrhea. Except as documented, all other systems reviewed and negative. Physical Examination - Physical Exam General: In no apparent distress, Oriented x2, Other (Awake,) HEENT: PERRLA, Mucous membr. moist/pink, EOMI, Sclerae nonicteric Neck: Supple, 2+ carotid pulse no bruit, JVD not distended Respiratory: Clear to auscultation bilaterally, Normal air movement Cardiovascular: No edema, Regular rate/rhythm, Normal S1 S2 Capillary refill: <2 Seconds Gastrointestinal: Normal bowel sounds, Soft and benign, Non-distended, No tenderness Musculoskeletal: No swelling, No tenderness Integumentary: No rashes, No erythema Neurological: Normal strength at 5/5 x4 extr, Cranial nerves 3-12 intact, Other (Slow to respond.) Lymphatics: No axilla or inguinal lymphadenopathy - Studies Laboratory Data (last 24 hrs) 11/29/20 03:05: PT 13.0 H, INR 1.13, APTT 22.5 L 11/29/20 03:05: WBC 33.40 H* D, Hgb 15.8, Hct 46.2, Plt Count 283 11/29/20 03:05: Sodium 139, Potassium 3.6, BUN 28 H, Creatinine 1.25, Glucose 180 H, Total Bilirubin 0.5, AST 178 H D, ALT 63, Alkaline Phosphatase 111 Microbiology Data (last 24 hrs): 11/29/20 03:50 Blood - Blood Anaerobic Blood Culture - Final 11/29/20 04:00 Blood - Blood Anaerobic Blood Culture - Final Assessment and Plan - Problems (Diagnosis) (1) Seizure disorder Current Visit: Yes Status: Acute (2) MELAS (mitochondrial encephalopathy, lactic acidosis and stroke-like episodes) Current Visit: Yes Status: Acute (3) Sepsis Current Visit: Yes Status: Acute (4) Elevated troponin Current Visit: Yes Status: Acute - Plan Elevated troponin likely secondary to demand ischemia. Severe leukocytosis and tachycardic, unknown cause. Admit to the medical floor. Sepsis protocol initiated in the ED. Will continue with IV cefepime and IV vancomycin. Follow blood cultures obtained in the ED. Aggressive IV hydration. IV Keppra for seizures MRI of the brain results reviewed. Patient with multiple areas of cerebral edema, new infarct and old infarcts consistent with MELAS. Neurology consult. Patient seen by Dr. Melgar who is assisting with management. Monitor CBC to follow leukocytosis. ASA per neurology. Check lipid profile - Advance Directives Does patient have a Living Will: No Does patient have a Durable POA for Healthcare: No
--- NOTE | 2020-11-29 08:59 | RAD REPORT ---
EXAM DESCRIPTION: RAD - Chest Single View - 11/29/2020 1:57 am CLINICAL HISTORY: CHEST PAIN COMPARISON: January 2020 TECHNIQUE: AP portable chest image was obtained 11/29/2020 1:57 am . FINDINGS: Lungs are clear. Interstitial pattern matches comparison. Heart and vasculature are normal . No measurable pleural effusion and no pneumothorax. No acute bony abnormality seen. No acute aortic findings suspected. IMPRESSION: No acute cardiopulmonary process. No significant change from comparison study.
--- NOTE | 2020-11-29 09:04 | EKG ---
Test Date: 2020-11-29 Test Time: 01:00:36 Meterman: LILIYA MEASUREMENT RESULTS: Intervals: Rate: 154 [place]: 142 QRSD: 76 QT: 258 QTc: 413 [place]: P: 82 [place]: 142 QRS: 86 T: 267 INTERPRETIVE STATEMENTS: Sinus tachycardia Marked ST abnormality, possible inferior subendocardial injury Abnormal ECG Compared to ECG 11/30/2018 00:06:50 ST (T wave) deviation now present Sinus rhythm no longer present Sinus arrhythmia no longer present Short [place] interval no longer present Electronically Signed On 11-29-20 09:03:52 CDT by Petar Morfin
--- NOTE | 2020-11-29 10:15 | RAD REPORT ---
EXAM DESCRIPTION: CT - Head Brain Wo Cont - 11/29/2020 5:53 am CLINICAL HISTORY: The patient is 30 years old and is Male; CONFUSED TECHNIQUE: Axial computed tomography images of the head/brain without intravenous contrast. Sagitt al and coronal reformatted images were created and reviewed. This CT exam was performed using one o r more of the following dose reduction techniques: automated exposure control, adjustment of the mA and/or kV according to patient size, and/or use of iterative reconstruction technique. COMPARISON: CT of the head November 25, 2020 FINDINGS: BRAIN: Multifocal areas of white matter abnormality within the right occipital lobe, lef t frontal lobe, right temporal lobe, and bilateral basal ganglia/parsons radiata is noted. Findings monteiro ve evolved from prior exam. No intracranial hemorrhage, mass effect, midline shift is seen. There are no extra-axial fluid collections. VENTRICLES: Unremarkable. No ventriculomegaly. BONES/JOINTS: No acute fracture. SOFT TISSUES: Unremarkable. SINUSES: Unremarkable as visualized. No acute sinusitis. MASTOID AIR CELLS: Unremarkable as visualized. No mastoid effusion. ORBITS: Unremarkable as visualized. IMPRESSION: Extensive white matter abnormality which has slightly worsened since prior exam suggesti ng evolution of prior infarct. However, recommend further evaluation with MRI if clinically indicated . Electronically signed by: Abril Ramirez MD 11/29/2020 3:52 AM CDT Due to temporary technical issues with the PACS/Fluency reporting system, reports are being signed by the in house radiologists without review as a courtesy to insure prompt reporting. The interpreting radiologist is fully responsible for the content of the report.
--- NOTE | 2020-11-29 11:08 | RAD REPORT ---
EXAM DESCRIPTION: MRI - Brain W/Wo Cont - 11/29/2020 9:33 am CLINICAL HISTORY: SEIZURE, AMS, CVA COMPARISON: No comparisons TECHNIQUE: Sagittal and axial T1-weighted images were obtained. Axial PD/heavily T2-weighted and T2- FLAIR images were obtained along with axial DWI/ADC mapping sequences. Coronal heavily T2 weighted s equence obtained. Axial and coronal post-contrast T1-weighted images were also obtained. A 12 ml Mul tihance contrast following utilized. FINDINGS: Prior CT imaging shows attenuation abnormalities in the bilateral caudate head and lentifo rm nuclei abnormal attenuation present throughout much of the right occipital lobe and medial tempora l lobe with areas of encephalomalacia in the temporal and frontal lobes. MR imaging shows no intracranial hemorrhage. Extensive diffusion signal abnormality is present in the bilateral caudate head and lentiform nuclei. Extensive diffusion signal abnormality is present in th e right occipital lobe and posterior aspect of the parietal lobe. This extends into the medial aspect of the right temporal lobe and a portion of the lateral posterior right temporal lobe. Anteromedial right frontal lobe diffusion signal abnormality is present as well with medial right frontal lobe sig nal abnormality along the interhemispheric fissure. ADC mapping shows areas of diminished signal throughout portions but not all of the right parieto-occ ipital diffusion signal abnormality. Caudate head and lentiform nuclei do not have a definitive dimin ished ADC mapping. Diminished signal on ADC mapping seen in portions of the right frontal lobe signal abnormality. Extensive T2/IR signal abnormalities are present involving a greater amount of brain parenchyma than the diffusion signal abnormality. The caudate head signal abnormality extends superiorly into the maria isabel p periventricular white matter of each frontal lobe on T2/IR sequencing. Bilateral anterior lateral t emporal lobe T2 signal abnormalities are present not seen on the diffusion sequencing. The diffusion- weighted signal abnormalities all have associated cortical thickening and edema. There are areas of c ortical thinning in the anterolateral temporal lobes. No midline shift. No significant chronic ischemic pattern seen. Ventricles are normal in size. Signal voids are seen as a normal finding in the major intracranial vessels. Post-contrast images show normal dural enhancement with no abnormal thickening. No enhancing mass les ion the brain parenchyma. No abnormal enhancement in the areas of diffusion and T2 signal abnormaliti es. Mastoid air cells and paranasal sinuses are clear. IMPRESSION: Subacute infarction and cerebral edema changes involving the right occipital lobe and po rtions of the posterior right parietal lobe and medial temporal lobe. Subacute infarction changes are present within portions of the left and right frontal lobe signal abn ormalities. Bilateral basal ganglia diffusion signal abnormalities present without corresponding ADC mapping. Patient has numerous areas of cerebral cortical edema with additional areas of cortical thinning and encephalomalacia. Collective findings are believed to be areas of old and new infarction, postictal cerebral edema and possible subacute postictal anoxic injuries to the basal ganglia.
[2020-11-29] MEDS: NA CHLORIDE 0.9% 1,000 ML IV SCH ×2 (11:12→19:12)
[2020-11-29] MEDS: CEFEPIME 2 GM VIAL IV SCH ×2 (11:12→14:00)
[2020-11-29] MEDS ORDERED: NA CHLORIDE 0.9% 500 ML IV ONE (11:12)
[2020-11-29] MEDS ORDERED: ACETAMINOPHEN 500 MG TAB PO PRN (11:12)
[2020-11-29] MEDS: VANCOMYCIN 1 GM/VIAL IVPB ONE ×2 (11:12→14:00)
[2020-11-29] MEDS ORDERED: levETIRAcetam 500 MG in NA CHLORIDE 0.9% 100 ML IV SCH (12:00)
[2020-11-29] MEDS: levETIRAcetam 500 MG in NA CHLORIDE 0.9% 100 ML IV SCH ×2 (12:00→23:03)
[2020-11-29 12:09] LABS: Arterial Blood Carboxyhemoglob 1.1 % (0-1.5); Blood Gas Oxyhemoglobin 96.4 % (94-97); Blood O2 Saturation 98.5 % (92-98.5)
[2020-11-29 12:50] VITALS: BMI 17.2
[2020-11-29] MEDS: ENOXAPARIN 40 MG/0.4 ML SQ SCH (13:00)
[2020-11-29] MEDS ORDERED: ENOXAPARIN 40 MG/0.4 ML SQ ONE (13:23)
[2020-11-29] MEDS ORDERED: VANCOMYCIN 1.25 GM in NA CHLORIDE 0.9% 250 ML IV ONE (14:00)
[2020-11-29] MEDS: CEFEPIME/SWI 2gm 2 GM/20 ML SYR IV SCH ×2 (14:00→22:42)
[2020-11-29] MEDS: ONDANSETRON 4 MG/2 ML VIAL IV PRN (15:07)
[2020-11-29] MEDS ORDERED: ONDANSETRON 4 MG/2 ML VIAL ONE (15:26)
--- NOTE | 2020-11-29 19:27 | CON ---
Date of Consultation: 11/29/2020 Consultation called because of repeated seizures and chronic stroke. History Of Present Illness: Mr. 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 He came to [facility] with multiple nsfd-ti-aoyl seizu res. The patient said he rarely misses medications. His sister was in the room and said he would monteiro ve episodes of seizures with loss of consciousness and generalized shaking and after 1 recent episode , he fell hitting the left forehead. At [facility], his head CT scan showed no acute ischem ic or hemorrhagic change; however, there was extensive white matter abnormality, which was worse comp ared to the more recent study, which was on November 25, 2020 and today is November 29, 2020. The brain MRI identified subacute infarctions with cerebral edema in the right occipital lobe, portions of the pos terior right parietal lobe, medial temporal lobe, in addition to the left and right frontal lobes, th e bilateral basal ganglia, and there was significant cortical thinning due to encephalomalacia. The patient had a scan reviewed from 2019, which has already shown multiple bilateral strokes. His siste r notes he was not taking aspirin. Prior to these episodes, he was just on antiepileptic medications . She is not sure of the medications, but appears to be Keppra. Despite the patient's multiple stro kes, he actually when not seizing and not postictal, is able to use arms and legs equally well. He i s slow to respond. Has difficulty with behavioral issues and has a mild to moderate impairment in co gnition. Past Medical History: As noted. Allergies: AMOXICILLIN. Medications: At home, possibly Keppra. Family History: Mother from MELAS. Review of Systems: The patient has had some disorientation and confusion. He is on disability and lives independently w ith some help from his sister. He has no recent fevers, chills, nausea, vomiting, myalgias, arthralg ias, headaches, weight change, rash, or psychiatric issues other than mentioned above. Physical Examination: Vital Signs: Blood pressure 136/77, pulse 71, respiratory rate 18, temperature 98.8, oxygen saturati on 100% on room air. General: Mr. Calvillo is lying in his ICU bed, in no acute distress. HEENT: He appears normocephalic, although he does report some pain above the right eye where he rece ived a blow after following a seizure. He, however, appears atraumatic. Sclerae anicteric. Orophar ynx is moist, pink. Neck: Supple. Chest: Clear. Heart: Regular. Extremities: No significant edema or cyanosis noted in the extremities. Neurologic: Despite the report of the MRI, the patient actually has no apparent focal cranial nerve deficits. His face is symmetric. He has equal excursions on smiling, some apparent decrease in the visual meza bilaterally. However, otherwise, tongue and palate are midline. Motor examination, he does have subtle core weakness on the left compared to the right, 4+ out of 5 in the upper and lower extremity, and sensation also slightly decreased in the left compared to the right. Reflexes are no rmal. Coordination appears smooth and intact in the upper and lower extremities and with gait, he monteiro s some tendency to go to the left with ambulation. Laboratory Studies: Complete blood count with differential shows elevated white blood cell count of 33.4 with 88.4% neutrophils. Hemoglobin and hematocrit are normal. INR 1.13. Blood gas shows pH of 7.4, pCO2 of 27.9, PO2 of 119. Chemistries show a lactic acid that was elevated at 10.7 earlier thi s morning. Procalcitonin elevated at 0.39, BUN 28, glucose 180. AST 178. Urinalysis shows 3+ blood , 3+ protein, 2+ ketones, and his urine toxicology screen is positive for marijuana: COVID-19 test i s negative. His chest x-ray shows no cardiopulmonary abnormalities and electrocardiogram shows sinus tachycardia with marked ST abnormalities, possible inferior subendocardial injury. Assessment: Mr. 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 Plan: 1.He may benefit from Depakote to help with mood stabilization. Keppra is a good antiepileptic medi cation, however, that is likely to aggravate his bipolar disorder and therefore he will be switched t o Depakote 500 mg twice daily after 1000 mg load. 2.He may benefit from aspirin 81 mg daily. 3.He should follow up with his neurologist and primary care physician. 4.He should hydrate with 8 glasses of water daily and he is told of the importance of maintaining se izure precautions and updating 8 hours of sleep at night. He may be discharged home once the potenti al infection is treated. He does have a very elevated white count with lactic acid being elevated pr ocalcitonin, suggestive of possible infection, although his chest x-ray is negative. It may be from aspiration. LB/MODL Voice ID: [id number] Report ID: [id number]
[2020-11-29] MEDS ORDERED: CEFEPIME 2 GM VIAL ONE (22:51)
[2020-11-29 23:08] LABS: Urine Appearance CLEAR (Clear); Urine Bilirubin NEGATIVE (Negative); Urine Blood TRACE (Negative); Urine Color YELLOW (Yellow); Urine Glucose NEGATIVE (Negative); Urine Protein NEGATIVE (Negative); Urine Specific Gravity 1.025 (1.005-1.030); Urine Urobilinogen 0.2 mg/dL (0.2-1.0)
[2020-11-29 23:41] LABS: Urine Microscopic Reflex ORDER UMIC
[2020-11-30 00:13] LABS: Urine Bacteria 20-50 /HPF (NONE SEEN); Urine RBC <5 /HPF (NONE SEEN); Urine Urothelial Cells <5 /HPF (NONE SEEN)
[2020-11-30] MEDS: NA CHLORIDE 0.9% 1,000 ML IV SCH ×5 (01:56→23:37)
[2020-11-30 07:07] LABS: Absolute Lymphocytes (CBC) 1.6 K/uL (0.7-4.9); Basophils % 0.3 % (0-1.3); Hematocrit 42.4 % (39.6-49.0); Lymphocytes % 9.5 % (15.3-44.8); MPV 9.2 fL (7.6-11.3); RBC Red Blood Cell Count 4.74 M/uL (4.33-5.43)
[2020-11-30 07:28] LABS: ALT/SGPT 79 U/L (12-78); AST/SGOT 202 U/L (15-37); Albumin 4.1 g/dL (3.4-5.0); Alkaline Phosphatase 97 U/L (45-117); BUN Blood Urea Nitrogen 9 mg/dL (7-18); Bicarbonate 16 mmol/L (21-32); Bilirubin Total 0.6 mg/dL (0.2-1.0); Glucose Level 105 mg/dL (74-106); HDL Cholesterol 33 mg/dL (40-60); LDL Cholesterol, Calculated 134 (<130); Magnesium 1.8 mg/dL (1.8-2.4); Phosphorus 2.9 mg/dL (2.5-4.9); Potassium 3.8 mmol/L (3.5-5.1); Sodium Level 135 mmol/L (136-145)
[2020-11-30] MEDS ORDERED: POTASSIUM CL SA 10 MEQ TAB PO ONE (07:54)
[2020-11-30] MEDS: ENOXAPARIN 40 MG/0.4 ML SQ SCH (08:57)
[2020-11-30] MEDS: ONDANSETRON 4 MG/2 ML VIAL IV PRN ×2 (08:58→21:08)
--- NOTE | 2020-11-30 09:45 | P.PN ---
Subjective Date of Service: 11/30/20 Chief Complaint: Seizures Subjective: No new changes (feels about the same, unable to tolerate PO over last few days, reports some abd pain, unsure when last BM. sister reqluesting arginine.) Review of Systems 10-point ROS is otherwise unremarkable Physical Examination - Vital Signs Temperature: 98.7 F Blood Pressure: 118/68 Pulse: 101 Respirations: 18 Pulse Ox (%): 100 - Studies Microbiology Data (last 24 hrs): 11/29/20 04:00 Blood - Blood Anaerobic Blood Culture - Final 11/29/20 03:50 Blood - Blood Anaerobic Blood Culture - Final Assessment & Plan Physician Review Additional Text: Physical Exam General: NAD, slow to answer questions HEENT: PERRL, sclera anicteric, normal conjunctiva Respiratory: Clear to auscultation bilaterally, Normal air movement Cardiovascular: No edema, sinus tachycardia Gastrointestinal: soft, mild diffuse tenderness, no distention Musculoskeletal: No swelling, No tenderness Integumentary: No rashes, No erythema Neurological: Normal strength at 5/5 x4 extr, speech normal but slow to respond/answer questions Assessment and Plan Seizure disorder Subacute CVA MELAS (mitochondrial encephalopathy, lactic acidosis and stroke-like episodes) h/o CVA Elevated troponin nausea/vomiting Elevated troponin likely secondary to demand ischemia. denies chest pain / pressure. Cardiology consulted Severe leukocytosis and tachycardic, unknown cause. Possible infectious vs MELAS syndrome Sepsis protocol initiated in the ED. Will continue with IV cefepime and IV vancomycin. unclear if patient does have infection, remains afebrile, denies fever at home, no evidence of infectious source on exam, however, pt has abd pain and inability to tolerate PO over last few days will obtain CT abd/pelvis for futher eval Follow blood cultures obtained in the ED. IVF rate reduce IV Keppra for seizures. Neurology consulted and recommended switch to depakote (500mg BID after 1000mg load) MRI of the brain results reviewed. Patient with multiple areas of cerebral edema, new subacute infarct and old infarcts consistent with MELAS. leukocytosis improving ASA per neurology. PT consulted add protonix Code: full Dispo: anticipate dc home in ~2 days Time Spent Managing Pts Care (In Minutes): 40
[2020-11-30] MEDS: CEFEPIME/SWI 2gm 2 GM/20 ML SYR IV SCH ×2 (09:58→20:58)
--- NOTE | 2020-11-30 11:20 | EKG ---
Test Date: 2020-11-29 Test Time: 13:15:13 Investigative Shopper: SHERRI MEASUREMENT RESULTS: Intervals: Rate: 94 IN: 96 QRSD: 76 QT: 372 QTc: 465 [place]: P: 89 IN: 96 QRS: 85 T: 86 INTERPRETIVE STATEMENTS: Sinus rhythm with short IN Right atrial enlargement Minimal voltage criteria for LVH, may be normal variant Nonspecific T wave abnormality Prolonged QT Abnormal ECG Compared to ECG 11/29/2020 01:00:36 Short IN interval now present Atrial abnormality now present Left ventricular hypertrophy now present T-wave abnormality now present Prolonged QT interval now present Sinus tachycardia no longer present ST (T wave) deviation no longer present Electronically Signed On 11-30-20 11:16:35 CDT by Petar Morfin
[2020-11-30] MEDS: levETIRAcetam 500 MG in NA CHLORIDE 0.9% 100 ML IV SCH (12:23)
--- NOTE | 2020-11-30 12:41 | RAD REPORT ---
EXAM DESCRIPTION: CTAbdomen Pelvis W Contrast - 11/30/2020 10:26 am CLINICAL HISTORY: Abdominal pain. abd pain, eval for infectious etiology COMPARISON: No comparisons TECHNIQUE: Biphasic CT imaging of the abdomen and pelvis was performed with 100 ml non-ionic IV cont rast. All CT scans are performed using dose optimization technique as appropriate and may include automated exposure control or mA/KV adjustment according to patient size. FINDINGS: The lung bases are clear. The liver is unremarkable. The gallbladder is unremarkable. The adrenal glands are unremarkable. The pancreas is unremarkable. Low-density left renal lesions which are consistent with cysts. No stones h ydronephrosis. Spleen is within normal limits. No retroperitoneal lymphadenopathy. The bladder and pr ostate are within normal limits. Distended bladder which is nonspecific. No bowel obstruction is iden tified. No suspicious bony findings. Metallic foreign body near the right psoas muscle. IMPRESSION: No acute intra-abdominal or pelvic finding.
[2020-11-30] MEDS ORDERED: VANCOMYCIN 1 GM in NA CHLORIDE 0.9% 250 ML IV SCH (14:00)
[2020-11-30] MEDS: MEGESTROL 400 MG/10 ML UCUP PO SCH (15:23)
[2020-11-30] MEDS ORDERED: VANCOMYCIN 1 GM/VIAL ONE (15:24)
[2020-11-30] MEDS: PANTOPRAZOLE 40 MG INJ IVP SCH (20:58)
[2020-11-30] MEDS: SODIUM CHLORIDE 0.9% 10ML INJ IV PRN (20:58)
[2020-11-30] MEDS: DIVALPROEX DR 500MG TAB PO SCH (20:59)
[2020-12-01] MEDS: ONDANSETRON 4 MG/2 ML VIAL IV PRN (05:18)
[2020-12-01 06:10] LABS: Absolute Lymphocytes (CBC) 2.1 K/uL (0.7-4.9); Basophils % 0.7 % (0-1.3); Hematocrit 39.9 % (39.6-49.0); Lymphocytes % 15.1 % (15.3-44.8); MPV 8.9 fL (7.6-11.3); RBC Red Blood Cell Count 4.48 M/uL (4.33-5.43)
[2020-12-01 06:22] LABS: BUN Blood Urea Nitrogen 11 mg/dL (7-18); Bicarbonate 17 mmol/L (21-32); Glucose Level 113 mg/dL (74-106); Potassium 3.6 mmol/L (3.5-5.1); Sodium Level 135 mmol/L (136-145)
[2020-12-01] MEDS ORDERED: KCL 20 MEQ/100 mL IVPB 20 MEQ/100 ML BAG IV ONE (08:00)
--- NOTE | 2020-12-01 10:22 | RAD REPORT ---
EXAM DESCRIPTION: RAD - Barium Swallow Modified - 12/01/2020 9:34 am CLINICAL HISTORY: subacute stroke, eval function Dysphagia COMPARISON: Abdomen Pelvis W Contrast dated 11/30/2020 TECHNIQUE: The patient was given liquid, semi-solid and solid forms of barium. Lateral view fluorosc opic imaging was performed in conjunction with speech pathology service. FINDINGS: Laryngeal penetration not cleared with thin when trying to swallow pill pharyngeal residue vallecular trace with thin (cup), nectar (cup), pudding/puree (tsp), carrie cracke r mild to moderate with thin - 3 consecutive sips pyriform trace with thin (straw), nectar (cup), honey (tsp), carrie cracper, mild puree (tsp) decreased epiglottic deflection, decreased hyolaryngeal elevation/protraction, esopageal phase unrema rkable Total fluoroscopy time: 5 minutes and 2 seconds
[2020-12-01] MEDS: DIVALPROEX DR 500MG TAB PO SCH ×2 (10:42→21:44)
[2020-12-01] MEDS: ENOXAPARIN 40 MG/0.4 ML SQ SCH (10:42)
[2020-12-01] MEDS: PANTOPRAZOLE 40 MG INJ IVP SCH ×2 (10:43→21:43)
[2020-12-01] MEDS: CEFEPIME/SWI 2gm 2 GM/20 ML SYR IV SCH ×2 (10:43→21:43)
[2020-12-01] MEDS: MEGESTROL 400 MG/10 ML UCUP PO SCH (10:43)
--- NOTE | 2020-12-01 11:01 | P.PN ---
Subjective Date of Service: 12/01/20 Chief Complaint: Seizures Subjective: No new changes (continues with intermittent nausea/vomiting, difficult to get details from patient. sister states seems to happen every few hours. Pt initially reported happens with water, than said happens with anything he tries to eat/drink. throws up within minutes. states leads to cough and then throws up.) Review of Systems 10-point ROS is otherwise unremarkable Physical Examination - Vital Signs Temperature: 98.3 F Blood Pressure: 124/76 Pulse: 96 Respirations: 18 Pulse Ox (%): 100 Assessment & Plan Physician Review Additional Text: Physical Exam General: NAD, slow to answer questions, thin HEENT: PERRL, sclera anicteric, normal conjunctiva Respiratory: Clear to auscultation bilaterally, Normal air movement Cardiovascular: No edema, sinus tachycardia Gastrointestinal: soft, mild diffuse discomfort on palpation, no distention Musculoskeletal: No swelling, No tenderness Integumentary: No rashes, No erythema Neurological: Normal strength at 5/5 x4 extr, speech normal but slow to respond/answer questions Assessment and Plan Seizure disorder Subacute CVA MELAS (mitochondrial encephalopathy, lactic acidosis and stroke-like episodes) h/o CVA Elevated troponin nausea/vomiting Elevated troponin likely secondary to demand ischemia. denies chest pain / pressure. Cardiology consulted. echo ordered for today Severe leukocytosis and tachycardic, unknown cause. Possible infectious vs MELAS syndrome. improving Sepsis protocol initiated in the ED. Will continue with IV cefepime, will discontinue vancomycin at this time. cultures negative, remains afebrile unclear if patient does have infection, remains afebrile, denies fever at home, no evidence of infectious source on exam, however, pt has abd pain and inability to tolerate PO over last few days CT abd/pelvis negative for infectious etiology / acute process continues with nausea, discussed with neuro -possibly from seizure / edema. started scheduled zofran, and megace will obtain MBS and speech therapy consult, possible dysfunction from stroke unlikely medication reaction, pt had these symptoms prior to admission for a few days do gastric pain / GERD symptoms, less likely ulcer / gastritis it business analyst consulted for PPN, pt has not eaten in 5-6 days IV Keppra for seizures. Neurology consulted and recommended switch to depakote (500mg BID after 1000mg load) MRI of the brain results reviewed. Patient with multiple areas of cerebral edema, new subacute infarct and old infarcts consistent with MELAS. ASA per neuro PT consulted continue protonix Code: full Dispo: anticipate dc home in ~2 days Time Spent Managing Pts Care (In Minutes): 35
[2020-12-01] MEDS ORDERED: DEXTROSE 10%-WATER 500 ML IV SCH (13:00)
[2020-12-01] MEDS ORDERED: DIVALPROEX DR 500MG TAB PO ONE ×2 (14:00→21:00)
[2020-12-01] MEDS: NA CHLORIDE 0.9% 1,000 ML IV SCH (16:08)
[2020-12-01] MEDS: AA 4.25 %/D5W/ELECTROLYTES 2,000 ML, Lipids 20% 250 ML with MULTIVITAMINS INJ 10 ML IV SCH ×3 (16:54)
[2020-12-01] MEDS: ONDANSETRON 4 MG/2 ML VIAL IV SCH (16:54)
[2020-12-01] MEDS: SUCRALFATE 1GM/10ML UCUP FT SCH (21:44)
[2020-12-01] MEDS: ARGININE 500 MG PO SCH (21:44)
[2020-12-01] MEDS ORDERED: DIVALPROEX NA 125 MG CAP PO ONE (23:00)
[2020-12-02] MEDS: ONDANSETRON 4 MG/2 ML VIAL IV SCH ×3 (01:09→16:13)
[2020-12-02] MEDS: NA CHLORIDE 0.9% 1,000 ML IV SCH ×3 (01:09→18:48)
[2020-12-02 06:25] LABS: BUN Blood Urea Nitrogen 15 mg/dL (7-18); Bicarbonate 21 mmol/L (21-32); Glucose Level 95 mg/dL (74-106); Potassium 3.7 mmol/L (3.5-5.1); Sodium Level 137 mmol/L (136-145)
[2020-12-02 06:53] LABS: Absolute Lymphocytes (CBC) 2.4 K/uL (0.7-4.9); Basophils % 0.3 % (0-1.3); Hematocrit 39.8 % (39.6-49.0); Lymphocytes % 21.4 % (15.3-44.8); RBC Red Blood Cell Count 4.41 M/uL (4.33-5.43)
[2020-12-02] MEDS: SUCRALFATE 1GM/10ML UCUP FT SCH ×4 (08:47→21:41)
[2020-12-02] MEDS: MEGESTROL 400 MG/10 ML UCUP PO SCH (08:48)
[2020-12-02] MEDS: CEFEPIME/SWI 2gm 2 GM/20 ML SYR IV SCH ×2 (08:48→21:41)
[2020-12-02] MEDS: DIVALPROEX NA 125 MG CAP PO SCH ×2 (08:48→21:41)
[2020-12-02] MEDS: ENOXAPARIN 40 MG/0.4 ML SQ SCH ×2 (08:48→08:59)
[2020-12-02] MEDS: PANTOPRAZOLE 40 MG INJ IVP SCH ×2 (08:49→21:40)
[2020-12-02] MEDS: ARGININE 500 MG PO SCH ×2 (08:49→21:44)
--- NOTE | 2020-12-02 10:50 | ECHO ---
HEIGHT: 5 ft 4 in WEIGHT: 100 lb 0 oz DATE OF STUDY: 12/01/[address]: Flaquito De Jesus MD 2-DIMENSIONAL: YES M.MODE: YES DOPPLER: YES COLOR FLOW: YES TDS: PORTABLE: DEFINITY: BUBBLE STUDY: DIAGNOSIS: EVALUATED FUNCTION CARDIAC HISTORY: CATHERIZATION: SURGERY: PROSTHETIC VALVE: PACEMAKER: MEASUREMENTS (cm) DIASTOLIC (NORMALS) SYSTOLIC (NORMALS) IVSd 0.7 (0.6-1.2) LA Diam (1.9-4.0) LVEF 61% LVIDd 4.3 (3.5-5.7) LVIDs 2.9 (2.0-3.5) %FS 32% LVPWd 0.9 (0.6-1.2) Ao Diam 2.5 (2.0-3.7) 2 DIMENSIONAL ASSESSMENT: RIGHT ATRIUM: NORMAL LEFT ATRIUM: NORMAL RIGHT VENTRICLE: NORMAL LEFT VENTRICLE: NORMAL TRICUSPID VALVE: NORMAL MITRAL VALVE: NORMAL PULMONIC VALVE: NORMAL AORTIC VALVE: NORMAL PERICARDIAL EFFUSION: NONE AORTIC ROOT: NORMAL LEFT VENTRICULAR WALL MOTION: NORMAL DOPPLER/COLOR FLOW: NORMAL COMMENTS: NORMAL 2-DIMENSIONAL ECHOCARDIOGRAM WITH DOPPLER. NO WALL MOTION ABNORMALITY. NO EFFUSION. TECHNOLOGIST: LITO PADGETT
[2020-12-02] MEDS ORDERED: ASPIRIN EC 81 MG TAB PO ONE (12:46)
--- NOTE | 2020-12-02 12:46 | P.PN ---
Subjective Date of Service: 12/02/20 Chief Complaint: Seizures Subjective: Improving (patient reports feeling about the same. sister and nursing staff report improvement - pt not vomiting as much, seems to have more energy/strength, tolerating pills and some of PO intake) Review of Systems 10-point ROS is otherwise unremarkable Physical Examination - Vital Signs Temperature: 98.5 F Blood Pressure: 128/76 Pulse: 92 Respirations: 21 Pulse Ox (%): 100 Assessment & Plan Physician Review Additional Text: Physical Exam General: NAD, slow to answer questions HEENT: PERRL, sclera anicteric, normal conjunctiva Respiratory: Clear to auscultation bilaterally, Normal air movement Cardiovascular: No edema, sinus tachycardia Gastrointestinal: soft, nontender, nondistended Musculoskeletal: No swelling, No tenderness Integumentary: No rashes, No erythema Assessment and Plan Seizure disorder Subacute CVA with oral dysphagia MELAS (mitochondrial encephalopathy, lactic acidosis and stroke-like episodes) h/o CVA Elevated troponin nausea/vomiting Elevated troponin likely secondary to demand ischemia. denies chest pain / pressure. Cardiology consulted. echo WNL, trop trended down Severe leukocytosis and tachycardic, unknown cause. Possible infectious vs MELAS syndrome. improving. Sepsis protocol initiated in the ED. Will continue with IV cefepime, vanc dc'd. cultures negative, remains afebrile unclear if patient does have infection, remains afebrile, denies fever at home, no evidence of infectious source on exam, however, pt has abd pain and inability to tolerate PO over last few days. possible aspiration however CT/CXR clear CT abd/pelvis negative for infectious etiology / acute process continues with nausea, discussed with neuro -possibly from CVA / edema. started scheduled zofran, and megace MBS / speech therapy done on 12/01 - pt with some oral dysphagia, rec mechanical soft diet with some mild improvement in symptoms most likely related to CVA/edema GI consulted - gastric pain / GERD symptoms, less likely ulcer / gastritis. 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 Neurology consulted and recommended switch to depakote (500mg BID after 1000mg load) MRI of the brain results reviewed. Patient with multiple areas of cerebral celena a, new subacute infarct and old infarcts consistent with MELAS. ASA per neuro PT consulted continue protonix Code: full Dispo: anticipate dc home in ~2-3 days Time Spent Managing Pts Care (In Minutes): 35
[2020-12-02] MEDS: AA 4.25 %/D5W/ELECTROLYTES 2,000 ML, Lipids 20% 250 ML with MULTIVITAMINS INJ 10 ML IV SCH ×3 (17:35)
[2020-12-03] MEDS: ONDANSETRON 4 MG/2 ML VIAL IV SCH ×3 (02:49→17:10)
[2020-12-03 05:53] LABS: Basophils % 0.5 % (0-1.3); Hematocrit 39.2 % (39.6-49.0); Lymphocytes % 16.9 % (15.3-44.8); MPV 9.3 fL (7.6-11.3); RBC Red Blood Cell Count 4.42 M/uL (4.33-5.43)
[2020-12-03 06:00] LABS: Potassium 3.2 mmol/L (3.5-5.1); Sodium Level 135 mmol/L (136-145)
[2020-12-03 06:01] LABS: ALT/SGPT 64 U/L (12-78); AST/SGOT 50 U/L (15-37); Albumin 3.7 g/dL (3.4-5.0); Alkaline Phosphatase 80 U/L (45-117); BUN Blood Urea Nitrogen 13 mg/dL (7-18); Bicarbonate 24 mmol/L (21-32); Bilirubin Total 0.3 mg/dL (0.2-1.0); Glucose Level 80 mg/dL (74-106); Phosphorus 3.1 mg/dL (2.5-4.9); Protein, Total 7.7 g/dL (6.4-8.2)
[2020-12-03] MEDS: SUCRALFATE 1GM/10ML UCUP FT SCH ×4 (07:30→22:26)
[2020-12-03] MEDS: ENOXAPARIN 40 MG/0.4 ML SQ SCH ×2 (09:00→10:56)
[2020-12-03] MEDS: MEGESTROL 400 MG/10 ML UCUP PO SCH (10:55)
[2020-12-03] MEDS: ASPIRIN EC 81 MG TAB PO SCH (10:55)
[2020-12-03] MEDS: DIVALPROEX NA 125 MG CAP PO SCH ×2 (10:55→22:18)
[2020-12-03] MEDS: SODIUM CHLORIDE 0.9% 10ML INJ IV PRN (10:56)
[2020-12-03] MEDS: PANTOPRAZOLE 40 MG INJ IVP SCH ×2 (10:56→22:18)
[2020-12-03] MEDS: NA CHLORIDE 0.9% 1,000 ML IV SCH ×3 (11:13→22:48)
[2020-12-03] MEDS: ARGININE 500 MG PO SCH ×2 (11:14→21:00)
[2020-12-03] MEDS: CEFEPIME/SWI 2gm 2 GM/20 ML SYR IV SCH ×2 (11:16→21:00)
--- NOTE | 2020-12-03 14:01 | P.PN ---
Subjective Date of Service: 12/03/20 Chief Complaint: Seizures Subjective: Improving (tolerated part of dinner last night and breakfast, still with some coughing/spitting up of saliva. ambulated with PT. Pt in and out of responding to questions at times.) Review of Systems 10-point ROS is otherwise unremarkable Physical Examination - Vital Signs Temperature: 98.5 F Blood Pressure: 133/80 Pulse: 96 Respirations: 19 Pulse Ox (%): 98 Assessment & Plan Physician Review Additional Text: Physical Exam General: NAD, slow to answer questions HEENT: PERRL, sclera anicteric, R conjunctiva with slight erythema Respiratory: Clear to auscultation bilaterally, Normal air movement Cardiovascular: No edema, sinus rhythm Gastrointestinal: soft, nontender, nondistended Musculoskeletal: No swelling, No tenderness Integumentary: No rashes, No erythema Assessment and Plan Seizure disorder Subacute CVA with oral dysphagia MELAS (mitochondrial encephalopathy, lactic acidosis and stroke-like episodes) h/o CVA Elevated troponin nausea/vomiting Elevated troponin likely secondary to demand ischemia. denies chest pain / pressure. Cardiology consulted. echo WNL, trop trended down Severe leukocytosis and tachycardic, unknown cause. Possible infectious vs MELAS syndrome. improving. Sepsis protocol initiated in the ED. Will continue with IV cefepime, vanc dc'd. cultures negative, remains afebrile unclear if patient does have infection, remains afebrile, denies fever at home, no evidence of infectious source on exam, however, pt has abd pain and inability to tolerate PO over last few days. possible aspiration however CT/CXR clear CT abd/pelvis negative for infectious etiology / acute process continues with nausea, discussed with neuro -possibly from CVA / edema. started scheduled zofran, and megace; will back down on zofran schedule MBS / speech therapy done on 12/01 - pt with some oral dysphagia, rec mechanical soft diet with some mild improvement in symptoms - most likely related to CVA/edema GI consulted - gastric pain / GERD symptoms, less likely ulcer / gastritis. 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 Neurology consulted and recommended switch to depakote (500mg BID after 1000mg load) MRI of the brain results reviewed. Patient with multiple areas of cerebral edema, new subacute infarct and old infarcts consistent with MELAS. ASA per neuro PT consulted dc protonix slow response likely due to CVA as well, as pt has had this issue prior to admission. some may be partly exaggerated due to depakote Code: full Dispo: anticipate dc home in ~2 days if can take in adequate nutrition Time Spent Managing Pts Care (In Minutes): 35
[2020-12-03] MEDS: AA 4.25 %/D5W/ELECTROLYTES 2,000 ML, Lipids 20% 250 ML with MULTIVITAMINS INJ 10 ML IV SCH ×3 (17:10)
[2020-12-04] MEDS: ONDANSETRON 4 MG/2 ML VIAL IV SCH ×3 (00:53→21:51)
[2020-12-04 06:22] LABS: BUN Blood Urea Nitrogen 13 mg/dL (7-18); Bicarbonate 25 mmol/L (21-32); Glucose Level 100 mg/dL (74-106); Potassium 3.7 mmol/L (3.5-5.1); Sodium Level 134 mmol/L (136-145)
[2020-12-04] MEDS: ENOXAPARIN 40 MG/0.4 ML SQ SCH (09:00)
[2020-12-04] MEDS: ASPIRIN EC 81 MG TAB PO SCH (09:00)
[2020-12-04] MEDS: DIVALPROEX NA 125 MG CAP PO SCH ×2 (09:51→21:50)
[2020-12-04] MEDS: PANTOPRAZOLE 40 MG INJ IVP SCH (09:51)
[2020-12-04] MEDS: SUCRALFATE 1GM/10ML UCUP FT SCH ×4 (09:51→21:50)
[2020-12-04] MEDS: CEFEPIME/SWI 2gm 2 GM/20 ML SYR IV SCH (09:51)
[2020-12-04] MEDS: MEGESTROL 400 MG/10 ML UCUP PO SCH (09:51)
[2020-12-04] MEDS: NA CHLORIDE 0.9% 1,000 ML IV SCH ×2 (09:52→10:48)
[2020-12-04] MEDS: ARGININE 500 MG PO SCH ×2 (09:52→21:51)
[2020-12-04] MEDS: SODIUM CHLORIDE 0.9% 10ML INJ IV PRN (09:54)
--- NOTE | 2020-12-04 11:26 | CON ---
History Of Present Illness: Mr. Calvillo is a 30-year-old, came into the hospital complaining of se izure. He has a history of bipolar disorder, CVA, seizures, MELAS syndrome. He is allergic to amoxi cillin. Came in with multiple seizures. No cardiac symptoms, but for some reason, a troponin was dr armstrong and was positive and I was consulted. Past Medical History: As stated above. Allergies: AMOXICILLIN. Review of Systems: Negative. Social History: Negative. Family History: Noncontributory. Present Medications: Include aspirin, Depakote, Lovenox, Maxipime, megestrol, Protonix, and arginine . Physical Examination: Vital Signs: Stable. Afebrile, sinus rhythm. Adequate O2 saturation of 99% on room air. HEENT: Negative. Neck: Supple. No bruit. Chest: Clear to auscultation and percussion. Cardiac: Revealed a regular rhythm and rate. No murmurs, gallops, or rubs. Abdomen: Benign. Extremities: Revealed no clubbing, cyanosis, or edema. Laboratory Data: Troponin was slightly elevated. He had an elevated procalcitonin as well. Echocar diogram, which was done on Mr. Calvillo basically was normal without any wall motion abnormalities. His EKG showed sinus tachycardia with ST depression. He has chest x-ray was negative. He had a hea d CT that had extensive white matter abnormality. His MRI showed subacute infarction and cerebral ed landen in the right occipital lobe and the posterior right parietal lobe and medial temporal lobe. He a lso had subacute infarction changes present at the left and right frontal lobe. Bilateral basal gang geetha diffusion, cerebral cortical edema, cortical thinning, and encephalomalacia. Impression And Plan: 1.Abnormal troponin secondary to seizure disorder. 2.Mitochondrial myopathy, encephalopathy, lactic acidosis, and stroke-like syndrome. 3.Sinus tachycardia, possibly contributing to the elevated troponin from demand ischemia. Neurologi johnna consultation was obtained. The patient has mitochondrial encephalopathy with lactic acidosis and stroke-like syndrome, elevated blood glucose, partial seizures, bipolar disorder, multiple stroke. He was placed on Depakote and aspirin and recommended to be hydrated. Had no further input from a ca rdiac standpoint with a normal echocardiogram. I will be available for questions if the need arises. JILLIAN/GEORGE Voice ID: [id number] Report ID: [id number]
--- NOTE | 2020-12-04 13:40 | P.PN ---
Subjective Date of Service: 12/04/20 Chief Complaint: Seizures Subjective: Other (Patient has been tolerating p.o. intake, but has been more sleepy/slow to respond at times. Sister at bedside, reports patient seems to not be using his left arm as much. Patient responds to questions at times, ag itated at times) Review of Systems 10-point ROS is otherwise unremarkable Physical Examination - Vital Signs Temperature: 98.0 F Blood Pressure: 126/84 Pulse: 96 Respirations: 12 Pulse Ox (%): 100 - Studies Microbiology Data (last 24 hrs): 11/29/20 04:00 Blood - Blood Aerobic Blood Culture - Final No growth in 5 days. 11/29/20 04:00 Blood - Blood Anaerobic Blood Culture - Final 11/29/20 03:50 Blood - Blood Aerobic Blood Culture - Final No growth in 5 days. 11/29/20 03:50 Blood - Blood Anaerobic Blood Culture - Final Assessment & Plan Physician Review Additional Text: Physical Exam General: NAD, slow to answer questions HEENT: PERRL, sclera anicteric, normal conjunctiva Respiratory: Clear to auscultation bilaterally, Normal air movement Cardiovascular: No edema, sinus tachycardia: 100-10 Gastrointestinal: soft, nontender, nondistended Musculoskeletal: No swelling, No tenderness Integumentary: No rashes, No erythema Neuro: PERRL, CN II-XII grossly intact, moves all extremities equally - limited by patient not wanting to participate Assessment and Plan Seizure disorder Subacute CVA with oral dysphagia MELAS (mitochondrial encephalopathy, lactic acidosis and stroke-like episodes) h/o CVA Elevated troponin, secondary to seizure and demand ischemia sinus tachycardia Seizure disorder MELAS Leukocytosis elevated troponin -likely cause of elevated troponin, leukocytosis, lactic acidosis Patient is remained afebrile, cultures negative, white blood cell count has now normalized Status post 2 days of vancomycin, and has completed 5 days of IV cefepime Physical exam and imaging studies all negative for any acute infectious process Discontinue cefepime 12/04 -started IV Keppra for seizures. Neurology consulted and recommended switch to depakote (500mg BID after 1000mg load) -Patient is very thin, has been a little bit more lethargic and slow to respond to questions -Suspect this is secondary to Depakote We will decrease dose of Depakote to 250 mg twice daily Check level tomorrow Subacute CVA with oral dysphagia and cognitive impairment -Continues to have some difficulty with his saliva, causes him to cough/spit up at times. -MBS / speech therapy done on 12/01 - pt with some oral dysphagia, rec mechanical soft diet -Tolerating his mechanical soft diet. -Sister reports he does not eat much breakfast, but yesterday he tolerated majority of meal -Started PPN on 12/01, will discontinue 12/04 when current bag runs out -GI consulted - gastric pain / GERD symptoms, less likely ulcer / gastritis. patient may need PEG tube if inadequate PO intake Code: full Dispo: anticipate dc home in ~2 days if can take in adequate nutrition Time Spent Managing Pts Care (In Minutes): 35
[2020-12-04] MEDS ORDERED: NA CHLORIDE 0.9% 500 ML IV ONE (16:13)
[2020-12-04] MEDS: ENSURE ENLIVE 237 ML CAN PO SCH (21:50)
[2020-12-05] MEDS: ASPIRIN EC 81 MG TAB PO SCH (08:43)
[2020-12-05] MEDS: DIVALPROEX NA 125 MG CAP PO SCH ×2 (08:43→20:56)
[2020-12-05] MEDS: ONDANSETRON 4 MG/2 ML VIAL IV SCH ×2 (08:44→20:56)
[2020-12-05] MEDS: ARGININE 500 MG PO SCH ×2 (08:44→20:57)
[2020-12-05] MEDS: SUCRALFATE 1GM/10ML UCUP FT SCH ×4 (08:44→20:58)
[2020-12-05] MEDS: ENSURE ENLIVE 237 ML CAN PO SCH ×3 (08:46→20:58)
--- NOTE | 2020-12-05 10:22 | RAD REPORT ---
EXAM DESCRIPTION: RAD - Chest Single View - 12/05/2020 9:56 am CLINICAL HISTORY: cough, eval aspiration COMPARISON: Chest Single View dated 11/29/2020; Chest Single View dated 02/20/2020; Chest Single View dated 11/29/2018; CHEST PA AND LAT 2 VIEW dated 04/15/2012 FINDINGS: No evidence of edema or pneumonia. The heart size is within normal limits.No acute osseous abnormality. No significant pleural effusions or pneumothorax. Left mid lung scarring. IMPRESSION: No acute cardiopulmonary disease.
[2020-12-05] MEDS ORDERED: METOPROLOL TARTRATE 5 MG/5 ML INJ IV STA ×2 (12:43→18:39)
[2020-12-05] MEDS: NA CHLORIDE 0.9% 1,000 ML IV SCH ×2 (17:11→20:59)
--- NOTE | 2020-12-05 18:18 | P.PN ---
Subjective Date of Service: 12/05/20 Chief Complaint: Seizures Subjective: No new changes (reports feeling the same, having difficulty with swallowing medications with water, states would be find to swallow with juice/soda/other liquid that is not water. Reports generalized body aches and weakness. States he has had b/l feet pain over last few days but unable to describe any futher) Review of Systems 10-point ROS is otherwise unremarkable Physical Examination - Vital Signs Temperature: 98.4 F Blood Pressure: 120/85 Pulse: 111 Respirations: 14 Pulse Ox (%): 96 Assessment & Plan Physician Review Additional Text: Physical Exam General: NAD, slow to answer questions, thin HEENT: PERRL, sclera anicteric, R medial aspect with some erythema Respiratory: Clear to auscultation bilaterally, Normal air movement Cardiovascular: No edema, sinus tachycardia: 100-120 Gastrointestinal: soft, nontender, nondistended Musculoskeletal: No swelling, tenderness to light palpation of b/l soles of feet Integumentary: No rashes, No erythema Neuro: profound generalized weakness Assessment and Plan Seizure disorder Subacute CVA with oral dysphagia MELAS (mitochondrial encephalopathy, lactic acidosis and stroke-like episodes) h/o CVA Elevated troponin, secondary to seizure and demand ischemia sinus tachycardia Seizure disorder MELAS Leukocytosis elevated troponin -likely cause of elevated troponin, leukocytosis, lactic acidosis Patient has remained afebrile, cultures negative, white blood cell count has now normalized Status post 2 days of vancomycin, and has completed 5 days of IV cefepime Physical exam and imaging studies all negative for any acute infectious process Discontinue cefepime 12/04 -started IV Keppra for seizures. Neurology consulted and recommended switch to depakote (500mg BID after 1000mg load) -Patient is very thin, has been a little bit more lethargic and slow to respond to questions -Suspect this is secondary to Depakote possible recurrent MELAS / stroke, MRI ordered lactate ordered - improved -Depakote to 250 mg twice daily Subacute CVA with oral dysphagia and cognitive impairment -improving -MBS / speech therapy done on 12/01 - pt with some oral dysphagia, rec mechanical soft diet -Tolerating his mechanical soft diet. -Sister reports he does not eat much breakfast, but yesterday he tolerated majority of meal -Started PPN on 12/01, will discontinue 12/04 when current bag runs out -GI consulted - gastric pain / GERD symptoms, less likely ulcer / gastritis. patient may need PEG tube if inadequate PO intake Code: full Dispo: anticipate dc home in ~2-3 days if can take in adequate nutrition, may need PEG Time Spent Managing Pts Care (In Minutes): 35
[2020-12-05] MEDS ORDERED: NA CHLORIDE 0.9% 500 ML IV ONE (18:39)
[2020-12-06 06:16] LABS: Basophils % 0.6 % (0-1.3); Hematocrit 40.1 % (39.6-49.0); Lymphocytes % 20.1 % (15.3-44.8); MPV 8.7 fL (7.6-11.3); RBC Red Blood Cell Count 4.51 M/uL (4.33-5.43)
[2020-12-06 06:42] LABS: ALT/SGPT 48 U/L (12-78); AST/SGOT 27 U/L (15-37); Albumin 3.7 g/dL (3.4-5.0); Alkaline Phosphatase 80 U/L (45-117); BUN Blood Urea Nitrogen 23 mg/dL (7-18); Bicarbonate 23 mmol/L (21-32); Bilirubin Total 0.5 mg/dL (0.2-1.0); C-Reactive Protein 7.79 mg/L (<3.00); Glucose Level 110 mg/dL (74-106); Magnesium 2.1 mg/dL (1.8-2.4); Phosphorus 4.2 mg/dL (2.5-4.9); Potassium 4.4 mmol/L (3.5-5.1); Protein, Total 7.6 g/dL (6.4-8.2); Sodium Level 135 mmol/L (136-145)
[2020-12-06] MEDS: ASPIRIN EC 81 MG TAB PO SCH (08:35)
[2020-12-06] MEDS: SUCRALFATE 1GM/10ML UCUP FT SCH ×4 (08:36→22:02)
[2020-12-06] MEDS: DIVALPROEX NA 125 MG CAP PO SCH (08:36)
[2020-12-06] MEDS: ONDANSETRON 4 MG/2 ML VIAL IV SCH ×2 (08:36→22:02)
[2020-12-06] MEDS: ENSURE ENLIVE 237 ML CAN PO SCH ×2 (08:38→21:00)
--- NOTE | 2020-12-06 09:40 | RAD REPORT ---
EXAM DESCRIPTION: MRI - Brain Wo Cont - 12/06/2020 9:13 am CLINICAL HISTORY: Left arm weakness COMPARISON: November 29, 2020 MRI TECHNIQUE: Axial, sagittal, and coronal magnetic resonance images of the brain were obtained. FINDINGS: Since the prior examination there has been development of 4 centimeter areas of increased signal within the medial aspects of the posterior frontal lobes bilaterally. 3 centimeter area of abn ormal signal has developed within left occipital lobe. The ADC mapping does not demonstrate restricti on. Additional abnormal signal is present throughout caudate, basal ganglia and bilateral cerebrum are un changed. The ventricles are normal caliber. An extra-axial fluid collection is not noted. Fluid within the sinuses/mastoids is not seen IMPRESSION: Since the prior examination there has been development of 4 centimeter areas of increase d signal within the medial aspects of the posterior frontal lobes bilaterally. 3 centimeter area of a bnormal signal has developed within left occipital lobe. The ADC mapping does not demonstrate restric tion. This is compatible with vasogenic edema not acute infarction and can be seen with MELAS syndrome
[2020-12-06] MEDS: ARGININE 500 MG PO SCH ×2 (11:26→22:02)
[2020-12-06] MEDS: NA CHLORIDE 0.9% 1,000 ML IV SCH ×2 (12:00→17:20)
[2020-12-06] MEDS: dexAMETHasone 4 MG/ML VIAL IV SCH ×2 (13:03→17:20)
--- NOTE | 2020-12-06 17:15 | P.PN ---
Subjective Date of Service: 12/06/20 Chief Complaint: Seizures Subjective: No new changes (feels the same - difficulty swallowing at times, generalized weakness, b/l feet pain) Review of Systems 10-point ROS is otherwise unremarkable Physical Examination - Vital Signs Temperature: 98.1 F Blood Pressure: 134/85 Pulse: 112 Respirations: 16 Pulse Ox (%): 97 Assessment & Plan Physician Review Additional Text: Physical Exam General: slow to answer questions, thin HEENT: PERRL, R medial aspect with some erythema, droop of R eyelid Respiratory: Clear to auscultation bilaterally, Normal air movement Cardiovascular: No edema, sinus tachycardia: 100-120 Gastrointestinal: soft, nontender, nondistended Musculoskeletal: No swelling, tenderness to light palpation of b/l soles of feet Integumentary: No rashes, No erythema Neuro: profound generalized weakness Assessment and Plan Seizure disorder Subacute CVA with oral dysphagia MELAS (mitochondrial encephalopathy, lactic acidosis and stroke-like episodes) h/o CVA Elevated troponin, secondary to seizure and demand ischemia sinus tachycardia Seizure disorder MELAS Leukocytosis elevated troponin -likely cause of elevated troponin, leukocytosis, lactic acidosis Patient has remained afebrile, cultures negative, white blood cell count has now normalized Status post 2 days of vancomycin, and has completed 5 days of IV cefepime Physical exam and imaging studies all negative for any acute infectious process Discontinued cefepime 12/04 -started IV Keppra for seizures. Neurology consulted and recommended switch to depakote (500mg BID after 1000mg load) -Patient is very thin, has been a little bit more lethargic and slow to respond to questions, refusing medications -reduced dose of depakote as may be contributing -pt also refusing PO meds -pt had seizure 8 AM, did not take PO depakote -changed PO to IV -MRI done 12/06 - new areas consistent with MELAS in frontal sherice and L occipital lobe region -discussed with neuro -pt will likely need close supervision for the foreseeable future -start steroids to assist with edema -daughter updated -may need PEG, to see how he does in next 24-48hrs, will keep GI updated Subacute CVA with oral dysphagia and cognitive impairment -improving -MBS / speech therapy done on 12/01 - pt with some oral dysphagia, rec mechanical soft diet -Tolerating his mechanical soft diet. -Sister reports he does not eat much breakfast -Started PPN on 12/01, will discontinue 12/04 when current bag runs out -GI consulted - gastric pain / GERD symptoms, less likely ulcer / gastritis. patient may need PEG tube if inadequate PO intake Code: full Dispo: anticipate dc home in ~2-3 days if can take in adequate nutrition, may need PEG Time Spent Managing Pts Care (In Minutes): 35
[2020-12-06] MEDS: VALPROATE SODIUM INJ 250 MG in NA CHLORIDE 0.9% 100 ML IV SCH (22:02)
[2020-12-07] MEDS: ACETAMINOPHEN 500 MG TAB PO PRN ×2 (04:07→16:37)
[2020-12-07] MEDS: NA CHLORIDE 0.9% 1,000 ML IV SCH ×2 (05:12→16:27)
[2020-12-07] MEDS: dexAMETHasone 4 MG/ML VIAL IV SCH ×3 (05:45→13:31)
[2020-12-07 06:49] LABS: MPV 8.6 fL (7.6-11.3); RBC Red Blood Cell Count 4.15 M/uL (4.33-5.43)
[2020-12-07 07:02] LABS: ALT/SGPT 43 U/L (12-78); AST/SGOT 28 U/L (15-37); Albumin 3.5 g/dL (3.4-5.0); Alkaline Phosphatase 71 U/L (45-117); BUN Blood Urea Nitrogen 23 mg/dL (7-18); Bicarbonate 22 mmol/L (21-32); Bilirubin Total 0.5 mg/dL (0.2-1.0); Glucose Level 146 mg/dL (74-106); Potassium 4.4 mmol/L (3.5-5.1); Protein, Total 7.4 g/dL (6.4-8.2); Sodium Level 136 mmol/L (136-145)
[2020-12-07] MEDS: ARGININE 500 MG PO SCH (08:21)
[2020-12-07] MEDS: SUCRALFATE 1GM/10ML UCUP FT SCH ×4 (08:21→21:58)
[2020-12-07] MEDS: ASPIRIN EC 81 MG TAB PO SCH (08:22)
[2020-12-07] MEDS: ENSURE ENLIVE 237 ML CAN PO SCH ×2 (08:22→21:00)
[2020-12-07] MEDS: ONDANSETRON 4 MG/2 ML VIAL IV SCH ×2 (08:22→21:58)
[2020-12-07] MEDS: VALPROATE SODIUM INJ 250 MG in NA CHLORIDE 0.9% 100 ML IV SCH (08:22)
[2020-12-07] MEDS ORDERED: [UNRECOGNIZED DRUG - OTHER] IV ONE (15:00)
--- NOTE | 2020-12-07 16:56 | P.PN ---
Subjective Date of Service: 12/07/20 Chief Complaint: Seizures Patient is slow to respond to questions or commands. No seizures. Physical Examination - Vital Signs Temperature: 99.0 F Blood Pressure: 128/82 Pulse: 77 Respirations: 18 Pulse Ox (%): 98 - Physical Exam General: Other (Awake, answers appropriately but slow to respond.) HEENT: Mucous membr. moist/pink Neck: JVD not distended Respiratory: Clear to auscultation bilaterally, Normal air movement Cardiovascular: No edema, Regular rate/rhythm, Normal S1 S2 Gastrointestinal: Soft and benign, Non-distended Musculoskeletal: No swelling Integumentary: No rashes Neurological: Other (Global weakness) Assessment And Plan - Current Problems (Diagnosis) (1) Seizure disorder Current Visit: Yes Status: Acute (2) MELAS (mitochondrial encephalopathy, lactic acidosis and stroke-like episodes) Current Visit: Yes Status: Acute (3) Sepsis Current Visit: Yes Status: Acute (4) Elevated troponin Current Visit: Yes Status: Acute Physician Review Additional Text: Physical Exam General: slow to answer questions, thin HEENT: PERRL, R medial aspect with some erythema, droop of R eyelid Respiratory: Clear to auscultation bilaterally, Normal air movement Cardiovascular: No edema, sinus tachycardia: 100-120 Gastrointestinal: soft, nontender, nondistended Assessment and Plan Seizure disorder Subacute CVA with oral dysphagia MELAS (mitochondrial encephalopathy, lactic acidosis and stroke-like episodes) h/o CVA Elevated troponin, secondary to seizure and demand ischemia sinus tachycardia Seizure disorder MELAS Leukocytosis elevated troponin -likely cause of elevated troponin, leukocytosis, lactic acidosis Patient has remained afebrile, cultures negative, white blood cell count has now normalized Status post 2 days of vancomycin, and has completed 5 days of IV cefepime Physical exam and imaging studies all negative for any acute infectious process Discontinued cefepime 12/04 -Was on IV Keppra for seizures. Neurology consulted and recommended switch to depakote (500mg BID after 1000mg load). -pt had seizure 8/9 AM, -case discussed with Dr. Melgar today. He recommend to discontinue Depakote which could cause worsening symptoms. Noted repeat MRI of the brain shows new areas of vasogenic edema. -patient switched back to IV Keppra. -pt will likely need close supervision for the foreseeable future per neurology. -Dr. Melgar recommend high-dose methylprednisolone 1 g daily x3 days and I agree with IV L-arginine. -feeding as tolerated. 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 -Sister reports he does not eat much breakfast -Status post PPN -GI consulted - gastric pain / GERD symptoms, less likely ulcer / gastritis. patient may need PEG tube if inadequate PO intake Code: full
[2020-12-07] MEDS: METHYLPRED NA SUC 1,000 MG in NA CHLORIDE 0.9% 100 ML IV SCH (18:11)
[2020-12-07] MEDS: levETIRAcetam 250 MG in NA CHLORIDE 0.9% 100 ML IV SCH (21:00)
--- NOTE | 2020-12-07 22:41 | PN ---
Subjective: Mr. Calvillo is resting in bed. He answers questions when repeatedly stimulated. He d id count fingers up to 4, but could not say 5 despite 5 fingers being in front of him. He did not vo luntarily move his arms and legs although with withdrawal to noxious stimulation in the extremities. Eyes did open spontaneously, but he did not turn towards speech or voice, actually our sound. Objective: VITAL SIGNS: Blood pressure 128/82, pulse 77, respiratory rate 16, temperature 99, oxyge n saturation 98%. GENERAL: Mr. Calvillo again is resting in bed. He is in no significant distress. He does answer q uestions when stimulated. Has no apparent findings in terms of asymmetry of his face, the arm or leg tone but did not move the arms to fully assess strength or coordination. Laboratory Studies: His complete blood count with differential now improved to normal white blood ce ll count of 8.9. He has been placed on steroids and will be on actually Solu-Medrol 1 g daily for 3 days. His hemoglobin is 13.3. His chemistries show slightly elevated glucose of 146, creatinine is normal at 0.6, BUN 23, lactic acid increased from 2.4 to 4.7 and that is over 3 days. Liver function studies normal. Procalcitonin is negative. Depakote level 46.9. His repeat brain MRI identified a 4 cm area of increased signal in the medial aspect of the posterior frontal lobes bilaterally and a 3 cm area of abnormal signal in the left occipital lobe. ADC mapping did not demonstrate restriction , therefore, these findings were not identified as strokes. It is noted that vasogenic edema may be seen in the condition of MELAS, which is the patient's diagnosis with seizures. Assessment: Mr. Calvillo is a 30-year-old patient with MELAS seizures who was placed on Depakote, w hich actually is likely exacerbated his lactic acidosis and his worsening cognitive functioning along with the potential findings in the brain of more edema again producing reduced responsiveness and pi cture of vascular encephalopathy. He is now on steroids which may help to reduce the swelling. Depa kote has been discontinued. He is placed on Levetiracetam 250 mg twice daily and his blood parameter s should be followed. Plan: 1.Again discontinue Depakote. 2.Keppra 250 mg twice daily. 3.Medrol 1 g daily for 3 days. 4.Repeat lactic acid, blood level, which should decrease over the next few days. 5.The patient will require significant physical therapy to help with his recovery. At this point, jacques mckay is shifted in long term as he recovers. He is not able to take care of himself at home demetria horton. The patient will be followed while in hospital. ALAN/GEORGE Voice ID: [id number] Report ID: [id number]
[2020-12-08] MEDS: NA CHLORIDE 0.9% 1,000 ML IV SCH ×2 (04:13→15:08)
[2020-12-08] MEDS: ENSURE ENLIVE 237 ML CAN PO SCH ×2 (09:00→21:00)
[2020-12-08] MEDS ORDERED: METHYLPRED NA SUC 1,000 MG in NA CHLORIDE 0.9% 100 ML IV SCH (09:00)
[2020-12-08] MEDS: levETIRAcetam 250 MG in NA CHLORIDE 0.9% 100 ML IV SCH ×2 (09:26→21:37)
[2020-12-08] MEDS: METHYLPRED NA SUC 1,000 MG in NA CHLORIDE 0.9% 100 ML IV SCH (09:28)
[2020-12-08] MEDS: ASPIRIN EC 81 MG TAB PO SCH (09:30)
[2020-12-08] MEDS: SUCRALFATE 1GM/10ML UCUP FT SCH ×4 (09:30→21:36)
[2020-12-08] MEDS: ONDANSETRON 4 MG/2 ML VIAL IV SCH ×2 (09:30→21:36)
--- NOTE | 2020-12-08 13:04 | EKG ---
Test Date: 2020-12-04 Test Time: 15:58:42 Assistant Boiler Operator: WERO MEASUREMENT RESULTS: Intervals: Rate: 119 NJ: 96 QRSD: 66 QT: 298 QTc: 419 Chuckey: P: 83 NJ: 96 QRS: 79 T: 240 INTERPRETIVE STATEMENTS: Sinus tachycardia with short NJ Right atrial enlargement Left ventricular hypertrophy with repolarization abnormality Abnormal ECG Compared to ECG 11/29/2020 13:15:13 Early repolarization now present Sinus rhythm no longer present T-wave abnormality no longer present Prolonged QT interval no longer present Electronically Signed On 12-08-20 12:59:41 CDT by Petar Morfin
--- NOTE | 2020-12-08 14:50 | P.PN ---
Subjective Date of Service: 12/08/20 Chief Complaint: Seizures Patient appeared to be more interactive today. He needs assistance with feeding No seizures. Physical Examination - Vital Signs Temperature: 100 F Blood Pressure: 125/78 Pulse: 75 Respirations: 18 Pulse Ox (%): 98 - Physical Exam General: Confused, Other (Awake) HEENT: Mucous membr. moist/pink Neck: JVD not distended Respiratory: Clear to auscultation bilaterally, Normal air movement Cardiovascular: No edema, Regular rate/rhythm, Normal S1 S2 Gastrointestinal: Soft and benign, Non-distended Musculoskeletal: No swelling Integumentary: No rashes Neurological: Other (Patient moves all extremities. 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 Neurology consulted and recommended switch to depakote (500mg BID after 1000mg load). -pt had seizure 8/9 AM, -case discussed with Dr. Melgar today. He recommend to discontinue Depakote which could cause worsening symptoms. Noted repeat MRI of the brain shows new areas of vasogenic edema. -patient switched back to IV Keppra. -pt will likely need close supervision for the foreseeable future per neurology. -patient started on methylprednisolone 1 g daily x3 days per neurology recommendation. Continue IV L-arginine. -feeding as tolerated. 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 -Sister reports he does not eat much breakfast -Status post PPN -he is being fed with assistance -GI consulted - gastric pain / GERD symptoms, less likely ulcer / gastritis. patient may need PEG tube if inadequate PO intake -Do calorie count. Code: full
[2020-12-08] MEDS: [UNRECOGNIZED DRUG - OTHER] IV SCH (15:08)
[2020-12-08] MEDS: ACETAMINOPHEN 500 MG TAB PO PRN (17:53)
[2020-12-09] MEDS: NA CHLORIDE 0.9% 1,000 ML IV SCH ×3 (00:45→21:14)
[2020-12-09] MEDS: SUCRALFATE 1GM/10ML UCUP FT SCH ×4 (07:30→21:00)
[2020-12-09] MEDS: ENSURE ENLIVE 237 ML CAN PO SCH ×2 (09:00→21:00)
[2020-12-09] MEDS: ASPIRIN EC 81 MG TAB PO SCH (09:00)
[2020-12-09] MEDS: levETIRAcetam 250 MG in NA CHLORIDE 0.9% 100 ML IV SCH ×2 (09:00→21:14)
[2020-12-09] MEDS: ONDANSETRON 4 MG/2 ML VIAL IV SCH ×2 (09:39→21:15)
[2020-12-09] MEDS: METHYLPRED NA SUC 1,000 MG in NA CHLORIDE 0.9% 100 ML IV SCH (09:42)
[2020-12-09] MEDS: [UNRECOGNIZED DRUG - OTHER] IV SCH (15:15)
--- NOTE | 2020-12-09 16:42 | P.PN ---
Subjective Date of Service: 12/09/20 Chief Complaint: Seizures Patient more communicate given interactive. He is oriented x3. He needs assistance with feeding No seizures. Physical Examination - Vital Signs Temperature: 99.0 F Blood Pressure: 117/82 Pulse: 63 Respirations: 16 Pulse Ox (%): 99 - Physical Exam General: Alert, In no apparent distress, Cachectic HEENT: Mucous membr. moist/pink Neck: JVD not distended Respiratory: Clear to auscultation bilaterally, Normal air movement Cardiovascular: No edema, Regular rate/rhythm, Normal S1 S2 Gastrointestinal: Normal bowel sounds, Soft and benign, Non-distended, No tenderness Musculoskeletal: No swelling Integumentary: No rashes Neurological: Other (Moves all extremities.) Assessment And Plan - Current Problems (Diagnosis) (1) Seizure disorder Current Visit: Yes Status: Acute (2) MELAS (mitochondrial encephalopathy, lactic acidosis and stroke-like episodes) Current Visit: Yes Status: Acute (3) Sepsis Current Visit: Yes Status: Acute (4) Elevated troponin Current Visit: Yes Status: Acute Physician Review Additional Text: Assessment and Plan Seizure disorder Subacute CVA with oral dysphagia MELAS (mitochondrial encephalopathy, lactic acidosis and stroke-like episodes) h/o CVA Elevated troponin, secondary to seizure and demand ischemia sinus tachycardia Seizure disorder MELAS Leukocytosis elevated troponin Patient has remained afebrile, cultures negative, white blood cell count has now normalized Status post 2 days of vancomycin, and has completed 5 days of IV cefepime -Was on IV Keppra for seizures. Neurology consulted and recommended switch to depakote (500mg BID after 1000mg load). -pt had seizure 8/9 AM, -case discussed with Dr. Melgar today. He recommend to discontinue Depakote which could cause worsening symptoms. Noted repeat MRI of the brain shows new areas of vasogenic edema. -patient switched back to IV Keppra. -close supervision and disposition to long-term care recommended by neurology but patient refused placement. -continue methylprednisolone 1 g daily x3 days per neurology recommendation. Continue IV L-arginine. -feeding as tolerated. -patient discharged home with home health. He has a personal aide too. 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 -Sister reports he does not eat much breakfast -Status post PPN -he is being fed with assistance -GI consulted - gastric pain / GERD symptoms, less likely ulcer / gastritis. patient may need PEG tube if inadequate PO intake -patient eating at least 25% of his meals. He sometimes finishes the whole meal . Code: full
[2020-12-09] MEDS: ACETAMINOPHEN 500 MG TAB PO PRN (23:06)
[2020-12-10] MEDS: NA CHLORIDE 0.9% 1,000 ML IV SCH (06:47)
[2020-12-10] MEDS: levETIRAcetam 250 MG in NA CHLORIDE 0.9% 100 ML IV SCH ×2 (09:00→21:33)
[2020-12-10] MEDS: ENSURE ENLIVE 237 ML CAN PO SCH ×2 (09:00→21:00)
[2020-12-10] MEDS: ASPIRIN EC 81 MG TAB PO SCH (09:00)
[2020-12-10] MEDS: SUCRALFATE 1GM/10ML UCUP FT SCH ×4 (10:50→21:33)
[2020-12-10] MEDS: ONDANSETRON 4 MG/2 ML VIAL IV SCH ×2 (10:51→21:30)
--- NOTE | 2020-12-10 12:08 | P.PN ---
Subjective Date of Service: 12/10/20 Chief Complaint: Seizures Patient has some questions appropriately. He is oriented x3. He declines to go to [facility] No seizures. He is clinically improving. Physical Examination - Vital Signs Temperature: 99.3 F Blood Pressure: 141/81 Pulse: 68 Respirations: 18 Pulse Ox (%): 99 - Physical Exam General: In no apparent distress, Oriented x3 HEENT: Mucous membr. moist/pink Respiratory: Clear to auscultation bilaterally, Normal air movement Cardiovascular: Regular rate/rhythm, Normal S1 S2 Gastrointestinal: Soft and benign, Non-distended Musculoskeletal: No swelling Integumentary: No rashes Neurological: Other (Globally weak. 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 Neurology consulted and recommended switch to depakote (500mg BID after 1000mg load). -pt had seizure 8/9 AM, -case discussed with Dr. Melgar. He recommend to discontinue Depakote which could cause worsening symptoms. Noted repeat MRI of the brain shows new areas of vasogenic edema. -patient switched back to IV Keppra. -close supervision and disposition to long-term care recommended by neurology but patient refused placement. -continue methylprednisolone 1 g daily x3 days per neurology recommendation. Continue IV L-arginine. -feeding as tolerated. -patient discharged home with home health. He has a personal aide too. -possible discharge tomorrow Subacute CVA with oral dysphagia and cognitive impairment -improving -MBS / speech therapy done on 12/01 - pt with some oral dysphagia, mechanical soft diet recommended by speech -Status post PPN -he is being fed with assistance -patient eating at least 25% of his meals. He sometimes finishes the whole meal. Code: full
[2020-12-10] MEDS: [UNRECOGNIZED DRUG - OTHER] IV SCH (15:00)
[2020-12-11] MEDS: ACETAMINOPHEN 500 MG TAB PO PRN ×2 (08:36→18:22)
[2020-12-11] MEDS: ASPIRIN EC 81 MG TAB PO SCH (08:37)
[2020-12-11] MEDS: ONDANSETRON 4 MG/2 ML VIAL IV SCH ×2 (08:37→21:07)
[2020-12-11] MEDS: SUCRALFATE 1GM/10ML UCUP FT SCH ×4 (08:37→21:08)
[2020-12-11] MEDS: levETIRAcetam 250 MG in NA CHLORIDE 0.9% 100 ML IV SCH (08:38)
[2020-12-11] MEDS: ENSURE ENLIVE 237 ML CAN PO SCH ×2 (08:40→21:09)
--- NOTE | 2020-12-11 11:19 | P.PN ---
Subjective Date of Service: 12/11/20 Chief Complaint: Seizures He is oriented x3. He has needing total assist, and need support with even with sitting up. No seizures. He is clinically improving. Physical Examination - Vital Signs Temperature: 98.5 F Blood Pressure: 127/78 Pulse: 65 Respirations: 19 Pulse Ox (%): 98 - Physical Exam General: In no apparent distress, Oriented x3, Cachectic HEENT: Mucous membr. moist/pink Neck: JVD not distended Respiratory: Clear to auscultation bilaterally, Normal air movement Cardiovascular: No edema, Regular rate/rhythm, Normal S1 S2 Gastrointestinal: Soft and benign, Non-distended Musculoskeletal: No contractures Integumentary: No rashes Neurological: Other (Globally weak) Assessment And Plan - Current Problems (Diagnosis) (1) Seizure disorder Current Visit: Yes Status: Acute (2) MELAS (mitochondrial encephalopathy, lactic acidosis and stroke-like episodes) Current Visit: Yes Status: Acute (3) Sepsis Current Visit: Yes Status: Acute (4) Elevated troponin Current Visit: Yes Status: Acute (5) Cachexia Current Visit: Yes Status: Acute Physician Review Additional Text: Assessment and Plan Seizure disorder 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 Was started on Depakote. -neurology is following. Noted repeat MRI of the brain shows new areas of vasogenic edema. -patient switched back from Depakote to IV Keppra. Change IV to oral. -close supervision and disposition to long-term care recommended by neurology but patient refusing. He is now a total assist, needing support with even sitting up. Patient informed he will not do well going home looking at the another level support he is needing. -he is agreeing to 24 x 7 supervised care-long-term on [facility], whichever option is available. -patient completed IV high-dose steroid. -discontinue IV L-arginine after the 3rd dose today and start oral arginine supplement. -folic acid -feeding as tolerated. 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 -patient is now eating more. Code: full
[2020-12-11 14:24] LABS: Absolute Lymphocytes (CBC) 4.6 K/uL (0.7-4.9); Basophils % 0.1 % (0-1.3); Hematocrit 45.2 % (39.6-49.0); Lymphocytes % 25.8 % (15.3-44.8); MPV 9.4 fL (7.6-11.3); RBC Red Blood Cell Count 4.99 M/uL (4.33-5.43)
[2020-12-11 14:44] LABS: BUN Blood Urea Nitrogen 23 mg/dL (7-18); Bicarbonate 21 mmol/L (21-32); Glucose Level 98 mg/dL (74-106); Sodium Level 137 mmol/L (136-145)
[2020-12-11 14:50] LABS: Potassium 2.8 mmol/L (3.5-5.1)
[2020-12-11 15:59] LABS: Blood Morphology Comment NOT SEEN (NOT SEEN); Platelet Estimate ADEQ; White Blood Cell Scan OK (OK)
[2020-12-11] MEDS ORDERED: POTASSIUM CL 40 MEQ in NA CHLORIDE 0.9% 500 ML IV SCH (16:00)
[2020-12-11] MEDS ORDERED: VANCOMYCIN/NS 1 gm 1 GM/250 ML BAG IVPB SCH (16:00)
[2020-12-11] MEDS ORDERED: NA CHLORIDE 0.9% 1,000 ML IV ONE (16:03)
[2020-12-11] MEDS: KCL 20 MEQ/100 mL IVPB 20 MEQ/100 ML BAG IV SCH ×2 (16:04→23:19)
--- NOTE | 2020-12-11 16:15 | P.INFCA ---
Sepsis Focused Assessment - Sepsis Screen Result Severe Sepsis: Negative - Vital Signs Reviewed: Yes Temperature: 98.5 F Heart rate: 120 Blood Pressure: 139/84 Respiratory Rate: 22 O2 Sat by Pulse Oximetry: 96 - Examination Heart: Regular rate/rhythm, S1, S2 Lungs: Clear bilaterally Peripheral pulses: 3+ Normal Peripheral pulse location: Radial Capillary refill: <2 Seconds Skin examination: Normal turgor
[2020-12-11] MEDS ORDERED: VANCOMYCIN 1.25 GM in NA CHLORIDE 0.9% 250 ML IVPB ONE (17:00)
--- NOTE | 2020-12-11 17:18 | RAD REPORT ---
EXAM DESCRIPTION: RAD - Chest Single View - 12/11/2020 4:23 pm CLINICAL HISTORY: Sepsis, elevated WBC count COMPARISON: December 05 TECHNIQUE: AP portable chest image was obtained 12/11/2020 4:23 pm . FINDINGS: No new or progressive lung parenchymal finding. Interstitial pattern is stable. Heart and vasculature are normal. No measurable pleural effusion and no pneumothorax. No acute bony abnormality seen. No acute aortic findings suspected. IMPRESSION: No acute cardiopulmonary process. No significant change from comparison study.
[2020-12-11] MEDS: VANCOMYCIN/NS 1 gm 1 GM/250 ML BAG IVPB SCH (17:30)
[2020-12-11] MEDS ORDERED: VANCOMYCIN 1 GM/VIAL ONE (18:00)
[2020-12-11] MEDS ORDERED: NA CHLORIDE 0.9% 250 ML ONE ×2 (18:02→23:35)
[2020-12-11] MEDS: NS KCL 20MEQ 20 MEQ/1,000 ML BAG IV SCH (18:10)
[2020-12-11] MEDS ORDERED: CEFEPIME 1 GM/VIAL IV SCH (21:00)
[2020-12-11] MEDS ORDERED: CEFEPIME/SWI 1gm 10 ML ONE (21:05)
[2020-12-11] MEDS: levETIRAcetam 500 MG TAB PO SCH (21:07)
[2020-12-11] MEDS: CEFEPIME/SWI 1gm 10 ML IV SCH (23:19)
[2020-12-11] MEDS ORDERED: KCL 20 MEQ/100 mL IVPB 20 MEQ/100 ML BAG IV ONE (23:33)
[2020-12-12] MEDS: ACETAMINOPHEN 500 MG TAB PO PRN ×2 (00:47→12:10)
[2020-12-12] MEDS: NS KCL 20MEQ 20 MEQ/1,000 ML BAG IV SCH ×3 (03:00→23:28)
[2020-12-12] MEDS ORDERED: NA CHLORIDE 0.9% 250 ML ONE ×2 (03:33→04:51)
[2020-12-12] MEDS ORDERED: VANCOMYCIN 1 GM/VIAL ONE (04:51)
[2020-12-12] MEDS ORDERED: VANCOMYCIN 750 MG in NA CHLORIDE 0.9% 150 ML IVPB SCH ×2 (05:00→09:00)
[2020-12-12 05:58] LABS: BUN Blood Urea Nitrogen 12 mg/dL (7-18); Bicarbonate 22 mmol/L (21-32); Glucose Level 107 mg/dL (74-106); Potassium 3.6 mmol/L (3.5-5.1); Sodium Level 137 mmol/L (136-145)
[2020-12-12] MEDS: VANCOMYCIN/NS 1 gm 1 GM/250 ML BAG IVPB SCH ×2 (06:09→18:08)
[2020-12-12] MEDS: ARGININE PO SCH (09:00)
[2020-12-12] MEDS: ENSURE ENLIVE 237 ML CAN PO SCH ×2 (09:00→20:11)
[2020-12-12] MEDS: SUCRALFATE 1GM/10ML UCUP FT SCH ×4 (09:07→20:11)
[2020-12-12] MEDS: ASPIRIN EC 81 MG TAB PO SCH (09:08)
[2020-12-12] MEDS: levETIRAcetam 500 MG TAB PO SCH ×2 (09:08→20:11)
[2020-12-12] MEDS: CEFEPIME/SWI 1gm 10 ML IV SCH ×2 (09:09→21:54)
[2020-12-12] MEDS: ONDANSETRON 4 MG/2 ML VIAL IV SCH ×2 (09:09→20:11)
[2020-12-12 09:58] LABS: Absolute Lymphocytes (CBC) 3.2 K/uL (0.7-4.9); Basophils % 0.2 % (0-1.3); Hematocrit 38.9 % (39.6-49.0); Lymphocytes % 24.5 % (15.3-44.8); MPV 8.9 fL (7.6-11.3); RBC Red Blood Cell Count 4.35 M/uL (4.33-5.43)
[2020-12-12 10:09] LABS: BUN Blood Urea Nitrogen 14 mg/dL (7-18); Bicarbonate 21 mmol/L (21-32); Glucose Level 125 mg/dL (74-106); Potassium 3.4 mmol/L (3.5-5.1); Sodium Level 137 mmol/L (136-145)
--- NOTE | 2020-12-12 13:02 | P.PN ---
Subjective Date of Service: 12/12/20 Chief Complaint: Seizures He is oriented x3. He has needing total assist, and need support with even with sitting up. He is now able to feed himself. No seizures. He is clinically improving. Physical Examination - Vital Signs Temperature: 99.0 F Blood Pressure: 132/86 Pulse: 81 Respirations: 18 Pulse Ox (%): 100 - Physical Exam General: Alert, In no apparent distress Neck: JVD not distended Respiratory: Clear to auscultation bilaterally, Normal air movement Cardiovascular: No edema, Regular rate/rhythm, Normal S1 S2 Gastrointestinal: Soft and benign, Non-distended, No tenderness Musculoskeletal: No swelling Neurological: Other (Moves all extremities but globally weak.) Assessment And Plan - Current Problems (Diagnosis) (1) Seizure disorder Current Visit: Yes Status: Acute (2) MELAS (mitochondrial encephalopathy, lactic acidosis and stroke-like episodes) Current Visit: Yes Status: Acute (3) Sepsis Current Visit: Yes Status: Acute (4) Elevated troponin Current Visit: Yes Status: Acute (5) Cachexia Current Visit: Yes Status: Acute - Plan Elevated troponin likely secondary to demand ischemia. Severe leukocytosis and tachycardic, unknown cause. Admit to the medical floor. Sepsis protocol initiated in the ED. Will continue with IV cefepime and IV vancomycin. Follow blood cultures obtained in the ED. Aggressive IV hydration. IV Keppra for seizures MRI of the brain results reviewed. Patient with multiple areas of cerebral edema, new infarct and old infarcts consistent with MELAS. Neurology consult. Patient seen by Dr. Melgar who is assisting with management. Monitor CBC to follow leukocytosis. ASA per neurology. Check lipid profile Physician Review Additional Text: Assessment and Plan Seizure disorder 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 Was started on Depakote. -neurology is following. Noted repeat MRI of the brain shows new areas of vasogenic edema. -patient switched back from Depakote to IV Keppra. Change IV Keppra to oral Keppra. -close supervision and disposition to long-term care recommended by neurology but patient refusing. He is now a total assist, needing support with even sitting up. Patient informed he will not do well going home taking into consideration the another level support he is needing. -he is agreeing to 24 x 7 supervised care-intermediate on halfway, whichever option is available. -patient completed IV high-dose steroid. -IV L-arginine transitioned to oral arginine supplement. -folic acid -feeding as tolerated. 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 He is now able to feed himself. -oral intake has also improved. Code: full
[2020-12-13] MEDS: ACETAMINOPHEN 500 MG TAB PO PRN ×2 (03:46→10:30)
[2020-12-13 05:08] LABS: Basophils % 0.2 % (0-1.3); Hematocrit 39.2 % (39.6-49.0); Lymphocytes % 20.8 % (15.3-44.8); MPV 9.7 fL (7.6-11.3); RBC Red Blood Cell Count 4.41 M/uL (4.33-5.43)
[2020-12-13 05:20] LABS: BUN Blood Urea Nitrogen 15 mg/dL (7-18); Bicarbonate 26 mmol/L (21-32); Glucose Level 89 mg/dL (74-106); Potassium 3.5 mmol/L (3.5-5.1); Sodium Level 138 mmol/L (136-145)
[2020-12-13] MEDS: VANCOMYCIN/NS 1 gm 1 GM/250 ML BAG IVPB SCH (05:52)
[2020-12-13] MEDS: SUCRALFATE 1GM/10ML UCUP FT SCH ×4 (07:30→21:28)
[2020-12-13] MEDS: ENSURE ENLIVE 237 ML CAN PO SCH ×2 (09:00→21:28)
[2020-12-13] MEDS: ARGININE PO SCH (09:00)
[2020-12-13] MEDS: CEFEPIME/SWI 1gm 10 ML IV SCH (09:00)
[2020-12-13] MEDS: ONDANSETRON 4 MG/2 ML VIAL IV SCH ×2 (09:00→21:28)
[2020-12-13] MEDS: ASPIRIN EC 81 MG TAB PO SCH (09:00)
[2020-12-13] MEDS: levETIRAcetam 500 MG TAB PO SCH ×2 (09:00→21:25)
[2020-12-13] MEDS: NS KCL 20MEQ 20 MEQ/1,000 ML BAG IV SCH ×2 (09:00→21:27)
--- NOTE | 2020-12-13 15:56 | P.PN ---
Subjective Date of Service: 12/13/20 Chief Complaint: Seizures He is oriented x3. He has needing total assist for transfer. No seizures. He is clinically improving. He is complaining of knee pain and refused to continue physical therapy today. Physical Examination - Vital Signs Temperature: 98.8 F Blood Pressure: 116/78 Pulse: 92 Respirations: 20 Pulse Ox (%): 97 - Physical Exam General: In no apparent distress, Oriented x3 HEENT: Mucous membr. moist/pink Neck: JVD not distended Respiratory: Clear to auscultation bilaterally, Normal air movement Cardiovascular: No edema, Regular rate/rhythm Gastrointestinal: Soft and benign, Non-distended Musculoskeletal: No swelling Integumentary: No rashes Neurological: Other (Globally weak) Assessment And Plan - Current Problems (Diagnosis) (1) Seizure disorder Current Visit: Yes Status: Acute (2) MELAS (mitochondrial encephalopathy, lactic acidosis and stroke-like episodes) Current Visit: Yes Status: Acute (3) Sepsis Current Visit: Yes Status: Acute (4) Elevated troponin Current Visit: Yes Status: Acute (5) Cachexia Current Visit: Yes Status: Acute Physician Review Additional Text: Assessment and Plan Seizure disorder Subacute CVA with oral dysphagia MELAS (mitochondrial encephalopathy, lactic acidosis and stroke-like episodes) h/o CVA Elevated troponin, secondary to seizure and demand ischemia sinus tachycardia Cachexia Seizure disorder MELAS Leukocytosis Left knee pain Status IV antibiotics-cefepime and vancomycin -pt had seizure 8/9 AM. Was started on Depakote. -neurology is following. Noted repeat MRI of the brain showed new areas of vasogenic edema. -neurology recommended switch back from Depakote to Keppra. -no more seizure. Patient tolerating oral Keppra -close supervision and disposition to long-term care recommended by neurology but patient refusing. He is now a total assist, needing support with even sitting up. Patient informed he will not do well going home taking into consideration the level support he is needing. -he is agreeing to 24 x 7 supervised care-long term on [facility], whichever option is available. -patient completed IV high-dose steroid. -S/p IV L-arginine and now transitioned to oral arginine supplement. -folic acid -feeding as tolerated. 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 He is now able to feed himself. -oral intake has also improved. -x-ray of the left knee to evaluate left knee pain. Code: full
[2020-12-13] MEDS ORDERED: VANCOMYCIN 1.25 GM in NA CHLORIDE 0.9% 1 GM/250 ML BAG IVPB SCH (18:00)
--- NOTE | 2020-12-13 19:39 | RAD REPORT ---
EXAM DESCRIPTION: RAD - Knee Left 2 View - 12/13/2020 7:26 pm CLINICAL HISTORY: Left knee pain. COMPARISON: No comparisons FINDINGS: No fracture, dislocation or periosteal reaction.No joint effusion seen. No joint space itz rowing. No soft tissue abnormality. IMPRESSION: Negative left knee. Clinical concerns for internal derangement or occult bony injury could be further assessed with MR im aging.
[2020-12-14 05:20] LABS: Absolute Lymphocytes (CBC) 2.8 K/uL (0.7-4.9); Basophils % 0.5 % (0-1.3); Hematocrit 40.1 % (39.6-49.0); Lymphocytes % 23.5 % (15.3-44.8); MPV 8.6 fL (7.6-11.3); RBC Red Blood Cell Count 4.53 M/uL (4.33-5.43)
[2020-12-14 05:38] LABS: BUN Blood Urea Nitrogen 14 mg/dL (7-18); Bicarbonate 26 mmol/L (21-32); Glucose Level 96 mg/dL (74-106); Potassium 4.1 mmol/L (3.5-5.1); Sodium Level 136 mmol/L (136-145)
--- NOTE | 2020-12-14 06:12 | P.PN ---
Subjective Date of Service: 12/14/20 Chief Complaint: Seizures Subjective: Improving (feeling better today - eating breakfast, reports knee pain improved. no new complaints. no acute events overnight) Review of Systems 10-point ROS is otherwise unremarkable Physical Examination - Vital Signs Temperature: 98.7 F Blood Pressure: 100/69 Pulse: 71 Respirations: 17 Pulse Ox (%): 100 Assessment & Plan Physician Review Additional Text: Physical Exam General: AAOx3, NAD HEENT: PERRL, normal conjunctiva Respiratory: Clear to auscultation bilaterally, Normal air movement Cardiovascular: No edema, regular rate/rhythm, no murmur Gastrointestinal: soft, nontender, nondistended Musculoskeletal: No knee swelling/tenderness Integumentary: No rashes, No erythema Assessment and Plan Seizure disorder Subacute CVA with oral dysphagia MELAS (mitochondrial encephalopathy, lactic acidosis and stroke-like episodes) h/o CVA Elevated troponin, secondary to seizure and demand ischemia sinus tachycardia Cachexia Left knee pain s/p IV antibiotics-cefepime and vancomycin -pt had seizure 8/9 AM. Was started on Depakote. -neurology is following. Noted repeat MRI of the brain showed new areas of vasogenic edema. -neurology recommended switch back from Depakote to Keppra. No more seizure. Patient tolerating oral Keppra -close supervision and disposition to long-term care recommended by neurology -patient initially refused, now amenable. He has been total assist, needing support with even sitting up. Patient informed he will not do well going home taking into consideration the level support he is needing. -he is agreeing to 24 x 7 supervised care-[facility] or [facility], whichever option is available. -patient completed IV high-dose steroid. -S/p IV L-arginine and now transitioned to oral arginine supplement. -folic acid, aspirin -feeding as tolerated. -case management to assist with arrangements for halfway Subacute CVA with oral dysphagia and cognitive impairment -improving -MBS / speech therapy done on 12/01 - pt with some oral dysphagia, mechanical soft diet recommended by speech -s/p PPN -initially being fed with assist. He is now able to feed himself. -oral intake has also improved. Code: full Dispo: anticipate dc to halfway in next few days Time Spent Managing Pts Care (In Minutes): 40
[2020-12-14] MEDS: NS KCL 20MEQ 20 MEQ/1,000 ML BAG IV SCH ×2 (07:17→15:47)
[2020-12-14] MEDS: ENSURE ENLIVE 237 ML CAN PO SCH ×2 (09:00→21:16)
[2020-12-14] MEDS: ARGININE PO SCH (09:00)
[2020-12-14] MEDS: SUCRALFATE 1GM/10ML UCUP FT SCH ×2 (09:12→11:30)
[2020-12-14] MEDS: ASPIRIN EC 81 MG TAB PO SCH (09:13)
[2020-12-14] MEDS: levETIRAcetam 500 MG TAB PO SCH ×2 (09:13→21:10)
[2020-12-14] MEDS: ONDANSETRON 4 MG/2 ML VIAL IV SCH ×2 (09:15→21:10)
[2020-12-14] MEDS: DULOXETINE 20 MG CAP PO SCH (21:16)
[2020-12-15] MEDS: NS KCL 20MEQ 20 MEQ/1,000 ML BAG IV SCH ×3 (01:41→21:19)
[2020-12-15 06:27] LABS: Hematocrit 39.4 % (39.6-49.0); RBC Red Blood Cell Count 4.41 M/uL (4.33-5.43)
[2020-12-15 06:42] LABS: BUN Blood Urea Nitrogen 14 mg/dL (7-18); Bicarbonate 27 mmol/L (21-32); Glucose Level 92 mg/dL (74-106); Magnesium 1.8 mg/dL (1.8-2.4); Potassium 3.9 mmol/L (3.5-5.1); Sodium Level 137 mmol/L (136-145)
[2020-12-15] MEDS ORDERED: POTASSIUM 25 MEQ EFFERV TAB PO ONE (09:00)
[2020-12-15] MEDS: ARGININE PO SCH (09:00)
[2020-12-15] MEDS: ONDANSETRON 4 MG/2 ML VIAL IV SCH ×2 (10:36→21:20)
[2020-12-15] MEDS: levETIRAcetam 500 MG TAB PO SCH ×2 (10:36→21:19)
[2020-12-15] MEDS: ENSURE ENLIVE 237 ML CAN PO SCH ×2 (10:37→21:20)
[2020-12-15] MEDS: PANTOPRAZOLE 40MG TABLET PO SCH (10:37)
[2020-12-15] MEDS: ASPIRIN EC 81 MG TAB PO SCH (10:40)
--- NOTE | 2020-12-15 13:50 | P.PN ---
Subjective Date of Service: 12/15/20 Chief Complaint: Seizures Subjective: No new changes Review of Systems 10-point ROS is otherwise unremarkable Physical Examination - Vital Signs Temperature: 98.6 F Blood Pressure: 111/72 Pulse: 79 Respirations: 17 Pulse Ox (%): 99 Assessment & Plan Physician Review Additional Text: Physical Exam General: Alert and oriented, NAD, slightly agitated this morning HEENT: PERRL, normal conjunctiva Respiratory: Clear to auscultation bilaterally, Normal air movement Cardiovascular: No edema, regular rate/rhythm, no murmur Gastrointestinal: soft, nontender, nondistended Musculoskeletal: No knee swelling/tenderness Integumentary: No rashes, No erythema Assessment and Plan Seizure disorder Subacute CVA with oral dysphagia MELAS (mitochondrial encephalopathy, lactic acidosis and stroke-like episodes) h/o CVA Elevated troponin, secondary to seizure and demand ischemia sinus tachycardia Cachexia Left knee pain Depression/Anxiety s/p IV antibiotics-cefepime and vancomycin. Remains afebrile -pt had seizure 8/9 AM. Was started on Depakote. -neurology is following. Noted repeat MRI of the brain showed new areas of vasogenic edema. -neurology recommended switch back from Depakote to Keppra. No more seizure. Patient tolerating oral Keppra -close supervision and disposition to long-term care recommended by neurology -patient initially refused, now amenable. He has been total assist, needing support with even sitting up. Patient informed he will not do well going home taking into consideration the level support he is needing. -he is agreeing to 24 x 7 supervised care-group home or [facility], whichever option is available. -patient completed IV high-dose steroid. -S/p IV L-arginine and now transitioned to oral arginine supplement. -Continue aspirin -feeding as tolerated. -case management to assist with arrangements for intermediate -pantoprazole started for potential acid reflux -duloxetine started 12/14 to help with depression/anxiety - secondary to MELAS Subacute CVA with oral dysphagia and cognitive impairment -improving -MBS / speech therapy done on 12/01 - pt with some oral dysphagia, mechanical soft diet recommended by speech -s/p PPN -initially being fed with assist. He is now able to feed himself. -oral intake has also improved. Code: full Dispo: anticipate dc to intermediate in next few days Time Spent Managing Pts Care (In Minutes): 35
[2020-12-15] MEDS: METOPROLOL TAR 25 MG TAB PO SCH (17:57)
[2020-12-15] MEDS: DULOXETINE 20 MG CAP PO SCH (21:19)
[2020-12-16] MEDS: METOPROLOL TAR 25 MG TAB PO SCH ×2 (07:15→17:06)
[2020-12-16] MEDS: NS KCL 20MEQ 20 MEQ/1,000 ML BAG IV SCH ×2 (07:18→17:06)
[2020-12-16 07:22] VITALS: O2SAT 99
[2020-12-16] MEDS: ARGININE PO SCH (09:00)
[2020-12-16] MEDS: ONDANSETRON 4 MG/2 ML VIAL IV SCH ×2 (09:30→21:50)
[2020-12-16] MEDS: ENSURE ENLIVE 237 ML CAN PO SCH ×2 (09:34→21:00)
[2020-12-16] MEDS: levETIRAcetam 500 MG TAB PO SCH ×2 (09:35→21:50)
[2020-12-16] MEDS: PANTOPRAZOLE 40MG TABLET PO SCH (09:35)
[2020-12-16] MEDS: ASPIRIN EC 81 MG TAB PO SCH (09:35)
--- NOTE | 2020-12-16 14:19 | P.PN ---
Subjective Date of Service: 12/16/20 Chief Complaint: Seizures Subjective: No new changes (Patient continues with verbally abusive comments to staff. States he is tired of being here and wants to go home. Denies any new symptoms) Review of Systems 10-point ROS is otherwise unremarkable Physical Examination - Vital Signs Temperature: 99 F Blood Pressure: 114/72 Pulse: 73 Respirations: 15 Pulse Ox (%): 100 Assessment & Plan Physician Review Additional Text: Physical Exam General: Alert and oriented, NAD, agitated this morning HEENT: PERRL, normal conjunctiva Respiratory: Clear to auscultation bilaterally, Normal air movement Cardiovascular: No edema, regular rate/rhythm, no murmur Gastrointestinal: soft, nontender, nondistended Musculoskeletal: No joint swelling/tenderness Integumentary: No rashes, No erythema Assessment and Plan Seizure disorder Subacute CVA with oral dysphagia MELAS (mitochondrial encephalopathy, lactic acidosis and stroke-like episodes) h/o CVA Elevated troponin, secondary to seizure and demand ischemia sinus tachycardia Cachexia Left knee pain Depression/Anxiety s/p IV antibiotics-cefepime and vancomycin. Remains afebrile -pt had seizure 8/9 AM. Was started on Depakote. -neurology is following. Noted repeat MRI of the brain showed new areas of vasogenic edema. -neurology recommended switch back from Depakote to Keppra. No more seizure. Patient tolerating oral Keppra -close supervision and disposition to long-term care recommended by neurology -patient initially refused, now amenable. He has been total assist, needing support with even sitting up. Patient informed he will not do well going home taking into consideration the level support he is needing. -he is agreeing to 24 x 7 supervised care-[facility] or [facility], whichever option is available. -patient completed IV high-dose steroid. -S/p IV L-arginine and now transitioned to oral arginine supplement. -Continue aspirin -feeding as tolerated. -case management to assist with arrangements for long term -pantoprazole started for likely acid reflux -duloxetine started 12/14 to help with depression/anxiety - secondary to MELAS -discussed with cardiology regarding patient's intermittent tachycardia. Recommended low-dose beta-viviana trial Subacute CVA with oral dysphagia and cognitive impairment -MBS / speech therapy done on 12/01 - pt with some oral dysphagia, mechanical soft diet recommended by speech -s/p PPN -initially being fed with assist. He is now able to feed himself. -oral intake has also improved. Code: full Dispo: anticipate dc to long term in next few days Time Spent Managing Pts Care (In Minutes): 35
[2020-12-16] MEDS: DULOXETINE 20 MG CAP PO SCH (21:50)
[2020-12-17] MEDS: NS KCL 20MEQ 20 MEQ/1,000 ML BAG IV SCH (02:54)
[2020-12-17 06:14] LABS: Hematocrit 37.5 % (39.6-49.0); MPV 8.4 fL (7.6-11.3); RBC Red Blood Cell Count 4.21 M/uL (4.33-5.43)
[2020-12-17] MEDS: METOPROLOL TAR 25 MG TAB PO SCH (06:27)
[2020-12-17 06:29] LABS: BUN Blood Urea Nitrogen 13 mg/dL (7-18); Bicarbonate 24 mmol/L (21-32); Glucose Level 115 mg/dL (74-106); Potassium 3.7 mmol/L (3.5-5.1); Sodium Level 136 mmol/L (136-145)
[2020-12-17 08:35] VITALS: TEMP 98.2
[2020-12-17] MEDS: ARGININE PO SCH (09:00)
[2020-12-17] MEDS: PANTOPRAZOLE 40MG TABLET PO SCH (09:05)
[2020-12-17] MEDS: ONDANSETRON 4 MG/2 ML VIAL IV SCH (09:06)
[2020-12-17] MEDS: levETIRAcetam 500 MG TAB PO SCH (09:06)
[2020-12-17] MEDS: ASPIRIN EC 81 MG TAB PO SCH (09:06)
[2020-12-17] MEDS: ENSURE ENLIVE 237 ML CAN PO SCH (09:07)
[2020-12-17 12:39] VITALS: BP 113/67
--- NOTE | 2020-12-17 13:08 | P.DS ---
Admission Date: 11/29/20 Discharge Date: 12/17/20 Disposition: TRANSFER TO [facility] Discharge Condition: FAIR Reason for Admission: Seizures, MELAS Consultations: Neurology - Dr. Melgar Cardiology - Dr. Morfin Procedures: Echocardiogram (12/01): Normal 2D echocardiogram with Doppler. No wall motion abnormality. No effusion CXR (11/29): No acute cardiopulmonary process. Lungs are clear. Interstitial pattern matches comparison. CT head (11/29): FINDINGS: BRAIN: Multifocal areas of white matter abnormality within the right occipital lobe, left frontal lobe, right temporal lobe, and bilateral basal ganglia/parsons radiata is noted. Findings have evolved from prior exam. No intracranial hemorrhage, mass effect, midline shift is seen. There are no extra- axial fluid collections. VENTRICLES: Unremarkable. No ventriculomegaly. BONES/JOINTS: No acute fracture. SOFT TISSUES: Unremarkable. SINUSES: Unremarkable as visualized. No acute sinusitis. MASTOID AIR CELLS: Unremarkable as visualized. No mastoid effusion. ORBITS: Unremarkable as visualized. IMPRESSION: Extensive white matter abnormality which has slightly worsened since prior exam suggesting evolution of prior infarct. However, recommend further evaluation with MRI if clinically indicated. MRI - Brain W/Wo Cont - 11/29/2020 9:33 am FINDINGS: Prior CT imaging shows attenuation abnormalities in the bilateral caudate head and lentiform nuclei abnormal attenuation present throughout much of the right occipital lobe and medial temporal lobe with areas of encephalomalacia in the temporal and frontal lobes. MR imaging shows no intracranial hemorrhage. Extensive diffusion signal abnormality is present in the bilateral caudate head and lentiform nuclei. Extensive diffusion signal abnormality is present in the right occipital lobe and posterior aspect of the parietal lobe. This extends into the medial aspect of the right temporal lobe and a portion of the lateral posterior right temporal lobe. Anteromedial right frontal lobe diffusion signal abnormality is present as well with medial right frontal lobe signal abnormality along the interhemispheric fissure. ADC mapping shows areas of diminished signal throughout portions but not all of the right parieto-occipital diffusion signal abnormality. Caudate head and lentiform nuclei do not have a definitive diminished ADC mapping. Diminished signal on ADC mapping seen in portions of the right frontal lobe signal abnormality. Extensive T2/IR signal abnormalities are present involving a greater amount of brain parenchyma than the diffusion signal abnormality. The caudate head signal abnormality extends superiorly into the deep periventricular white matter of each frontal lobe on T2/IR sequencing. Bilateral anterior lateral temporal lobe T2 signal abnormalities are present not seen on the diffusion sequencing. The diffusion-weighted signal abnormalities all have associated cortical thickening and edema. There are areas of cortical thinning in the anterolateral temporal lobes. No midline shift. No significant chronic ischemic pattern seen. Ventricles are normal in size. Signal voids are seen as a normal finding in the major intracranial vessels. Post-contrast images show normal dural enhancement with no abnormal thickening. No enhancing mass lesion the brain parenchyma. No abnormal enhancement in the areas of diffusion and T2 signal abnormalities. Mastoid air cells and paranasal sinuses are clear. IMPRESSION: Subacute infarction and cerebral edema changes involving the right occipital lobe and portions of the posterior right parietal lobe and medial temporal lobe. Subacute infarction changes are present within portions of the left and right frontal lobe signal abnormalities. Bilateral basal ganglia diffusion signal abnormalities present without corresponding ADC mapping. Patient has numerous areas of cerebral cortical edema with additional areas of cortical thinning and encephalomalacia. Collective findings are believed to be areas of old and new infarction, postictal cerebral edema and possible subacute postictal anoxic injuries to the basal ganglia. CTAbdomen Pelvis W Contrast - 11/30/2020 10:26 am FINDINGS: The lung bases are clear. The liver is unremarkable. The gallbladder is unremarkable. The adrenal glands are unremarkable. The pancreas is unremarkable. Low-density left renal lesions which are consistent with cysts. No stones hydronephrosis. Spleen is within normal limits. No retroperitoneal lymphadenopathy. The bladder and prostate are within normal limits. Distended bladder which is nonspecific. No bowel obstruction is identified. No suspicious bony findings. Metallic foreign body near the right psoas muscle. IMPRESSION: No acute intra-abdominal or pelvic finding. RAD - Barium Swallow Modified - 12/01/2020 9:34 am FINDINGS: Laryngeal penetration not cleared with thin when trying to swallow pill pharyngeal residue vallecular trace with thin (cup), nectar (cup), pudding/puree (tsp), carrie cracker mild to moderate with thin - 3 consecutive sips pyriform trace with thin (straw), nectar (cup), honey (tsp), carrie cracper, mild puree (tsp) decreased epiglottic deflection, decreased hyolaryngeal elevation/protraction, esopageal phase unremarkable RAD - Chest Single View - 12/05/2020 9:56 am FINDINGS: No evidence of edema or pneumonia. The heart size is within normal limits.No acute osseous abnormality. No significant pleural effusions or pneumothorax. Left mid lung scarring. IMPRESSION: No acute cardiopulmonary disease. MRI - Brain Wo Cont - 12/06/2020 9:13 am FINDINGS: Since the prior examination there has been development of 4 centimeter areas of increased signal within the medial aspects of the posterior frontal lobes bilaterally. 3 centimeter area of abnormal signal has developed within left occipital lobe. The ADC mapping does not demonstrate restriction. Additional abnormal signal is present throughout caudate, basal ganglia and bilateral cerebrum are unchanged. The ventricles are normal caliber. An extra-axial fluid collection is not noted. Fluid within the sinuses/mastoids is not seen IMPRESSION: Since the prior examination there has been development of 4 centimeter areas of increased signal within the medial aspects of the posterior frontal lobes bilaterally. 3 centimeter area of abnormal signal has developed within left occipital lobe. The ADC mapping does not demonstrate restriction. This is compatible with vasogenic edema not acute infarction and can be seen with MELAS syndrome RAD - Chest Single View - 12/11/2020 4:23 pm FINDINGS: No new or progressive lung parenchymal finding. Interstitial pattern is stable. Heart and vasculature are normal. No measurable pleural effusion and no pneumothorax. No acute bony abnormality seen. No acute aortic findings suspected. IMPRESSION: No acute cardiopulmonary process. No significant change from comparison study. RAD - Knee Left 2 View - 12/13/2020 7:26 pm FINDINGS: No fracture, dislocation or periosteal reaction.No joint effusion seen. No joint space narrowing. No soft tissue abnormality. IMPRESSION: Negative left knee. Clinical concerns for internal derangement or occult bony injury could be further assessed with MR imaging. Problem list Seizure disorder Subacute CVA with oral dysphagia MELAS (mitochondrial encephalopathy, lactic acidosis and stroke-like episodes) h/o CVA Elevated troponin, secondary to seizure and demand ischemia sinus tachycardia secondary to MELAS Cachexia, acute moderate protein calorie malnutrition Depression/Anxiety Brief History of Present Illness: 30-year-old gentleman with a history of bipolar disorder, CVA, seizures, MELAS was brought to the emergency department due to a seizure episode. Per report family witnessed 3 seizure episodes, called EMS, EMS witness for episodes and give him 3 mg of IV Ativan on the way to the emergency department. Patient noted to be tachycardic with heart rate up to 160. He was given 3 doses of IV Lopressor which improved his heart rate. Patient was awake but slow to respond. He is admitted for further management. Hospital Course: Patient had significant leukocytosis and lactic acidosis on admission. He was empirically treated with IV cefepime and vancomycin. He had resolution of his leukocytosis and improvement of his lactic acidosis. His cultures remain negative and he was afebrile. His antibiotics were discontinued and patient continued to do well. It was felt that initial lab abnormalities were more likely secondary to his MELAS than it was to an infection. Neurology was consulted on admission, and given his seizure, recommended swit [facility] from [facility] to [facility]. Patient had gradual improvement of his symptoms and then started having regression. Repeat MRI consistent with another episode of his MELAS. Patient was treated with IV L-arginine, high-dose IV steroids, neurology [facility] to minimize exacerbating his MELAS. Patient had gradual improvement again with his symptoms, but persisted with significant lower extremity weakness and agitation. For the first half of his hospitalization, patient did have oral dysphagia and some cognitive impairment that was contributing to some nausea and difficulty eating. He had gradual improvement. Speech therapy was consulted, underwent modified barium swallow exam. On day of discharge he was improved and able to feed self. Given his new limitations, was recommended the patient needed 24/7 supervised care. He was initially refusing, but then was agreeable. He was started on duloxetine on 12/14 to potentially help with depression/anxiety. There have been case reports that this medication helps in patients with MELAS. Throughout his hospitalization, patient had intermittent sinus tachycardia to the [id number] at times. Cardiology was consulted, this is likely secondary to his MELAS and agitation. He had gradual improvement, but still persists with intermittent sinus tachycardia. He was started on low-dose metoprolol. Echocardiogram was obtained and normal. On admission he had a mildly elevated troponin which was felt secondary to seizure and MELAS. Follow-up with neurology in 1-2 months. Vital Signs/Physical Exam: Physical Exam General: Alert and oriented, NAD, slightly agitated HEENT: PERRL, normal conjunctiva, not wearing his contacts Respiratory: Clear to auscultation bilaterally, Normal air movement Cardiovascular: No edema, regular rate/rhythm, no murmur Gastrointestinal: soft, nontender, nondistended Musculoskeletal: No joint swelling/tenderness Temp Pulse Resp BP Pulse Ox 98.2 F 70 15 113/67 98 12/17/20 12:00 12/17/20 12:00 12/17/20 12:00 12/17/20 12:00 12/17/20 12:00 Laboratory Data at Discharge: WBC 10.80 K/uL (4.3-10.9) 12/17/20 06:00 Hgb 13.3 g/dL (13.6-17.9) L 12/17/20 06:00 Hct 37.5 % (39.6-49.0) L 12/17/20 06:00 Plt Count 241 K/uL (152-406) 12/17/20 06:00 PT 13.0 SECONDS (9.5-12.5) H 11/29/20 03:05 INR 1.13 11/29/20 03:05 APTT 22.5 SECONDS (24.3-36.9) L 11/29/20 03:05 Sodium 136 mmol/L (136-145) 12/17/20 06:00 Potassium 3.7 mmol/L (3.5-5.1) 12/17/20 06:00 BUN 13 mg/dL (7-18) 12/17/20 06:00 Creatinine 0.50 mg/dL (0.55-1.3) L 12/17/20 06:00 Glucose 115 mg/dL (74-106) H 12/17/20 06:00 Phosphorus 4.2 mg/dL (2.5-4.9) 12/06/20 05:42 Magnesium 1.8 mg/dL (1.8-2.4) 12/15/20 05:50 Total Bilirubin 0.5 mg/dL (0.2-1.0) 12/07/20 06:32 AST 28 U/L (15-37) 12/07/20 06:32 ALT 43 U/L (12-78) 12/07/20 06:32 Alkaline Phosphatase 71 U/L (45-117) 12/07/20 06:32 Troponin I 0.14 ng/mL (0.0-0.045) H 12/04/20 16:13 Triglycerides 140 mg/dL (<150) 11/30/20 06:43 Cholesterol 195 mg/dL (<200) 08/03/21 06:43 HDL Cholesterol 33 mg/dL (40-60) L 11/30/20 06:43 Cholesterol/HDL Ratio 5.91 11/30/20 06:43 Home Medications: Arginine 8 g PO DAILY 12/17/20 Aspirin [Aspirin EC 81 MG] 81 mg PO DAILY 30 Days #30 tablet. 12/17/20 Duloxetine [Cymbalta *] 20 mg PO BEDTIME cap 12/17/20 Ensure Enlive 237 ml PO BID can 12/17/20 Metoprolol Tartrate [Lopressor*] 12.5 mg PO BID 6AM 6PM tab 12/17/20 Pantoprazole [Protonix Tab*] 40 mg PO ACB tab 12/17/20 levETIRAcetam [Keppra*] 250 mg PO BID tab 12/17/20 New Medications: Aspirin [Aspirin EC 81 MG] 81 mg PO DAILY 30 Days #30 tablet. Physician Discharge Instructions: PROBLEM: Seizure, CVA GOAL: Clear understanding of disease process INSTRUCTIONS: Diet: mechanical soft Activity: Fall precautions [facility] Services Needed: Care Home Name of Company: Date or Referral: Report to [phone] If you have any questions regarding your stay call [phone] If your symptoms worsen call [phone] or go to the ED. Diet: mech soft Activity: Fall precautions Followup: NONE,NONE [Primary Care Provider] - Time spent managing pt's care (in minutes): 45
== END 2020-12-17 15:35 | DRG 100 ==
LOC: ER 00:50 → ERHOLD 08:47 → 2ND 19:43
PROVIDERS: ADMIT Internal Medicine; ATTEND Internal Medicine
DX: G40.209 Localization-related (focal) (partial) symptomatic epilepsy and epileptic syndromes with complex partial seizures, not intractable, without status epilepticus (principal); I63.9 Cerebral infarction, unspecified; E88.41 MELAS syndrome; E44.0 Moderate protein-calorie malnutrition; Z68.1 Body mass index [BMI] 19.9 or less, adult; R64 Cachexia; I24.8 Other forms of acute ischemic heart disease; R13.11 Dysphagia, oral phase; D72.829 Elevated white blood cell count, unspecified; F41.8 Other specified anxiety disorders; R00.0 Tachycardia, unspecified; R77.8 Other specified abnormalities of plasma proteins; M25.562 Pain in left knee; F31.9 Bipolar disorder, unspecified; Z86.73 Personal history of transient ischemic attack (TIA), and cerebral infarction without residual deficits; Z20.822 Contact with and (suspected) exposure to COVID-19
CPT/HCPCS: 36415; 70450; 70551; 70553; 71045; 74177; 74230; 80048; 80053; 80061; 80076; 80164; 80202; 80307; 80320; 80329; 81003; 81015; 82550; 82746; 82805; 82947; 83605; 83735; 84100; 84145; 84443; 84484; 85025; 85027; 85610; 85730; 86140; 87040; 87086; 87088; 92526; 92610; 92611; 93005; 93306; 94760; 96361; 96365; 96367; 96375; 97110; 97116; 97161; 97164; 97530; 99285; A9577; C9113; J0692; J0696; J1100; J1650; J1953; J2405; J2543; J2930; J3370; J3480; J7030; J7040; J7050; Q9967; U0003

== ENCOUNTER 2021-01-21 09:36 | Emergency (ER) | payer OTHER ==
[2021-01-21] MEDS ORDERED: LORazepam 2 MG/ML VIAL ONE ×4 (10:04→15:24)
[2021-01-21] MEDS ORDERED: NA CHLORIDE 0.9% 500 ML ONE (10:09)
[2021-01-21] MEDS ORDERED: NA CHLORIDE 0.9% 1,000 ML ONE (10:09)
[2021-01-21 10:37] LABS: Urine Blood 1+ (Negative); Urine Glucose Negative (Negative); Urine Protein Trace (Negative); Urine Specific Gravity >=1.030 (1.005-1.030); Urine pH 5.5 (5.0-7.0)
--- NOTE | 2021-01-21 10:46 | RAD REPORT ---
EXAM DESCRIPTION: CT - Head Brain Wo Cont - 01/21/2021 10:09 am CLINICAL HISTORY: Confusion/seizure COMPARISON: December 06, 2020 MRI TECHNIQUE: Computed axial tomography of the head was obtained. IV contrast was not requested. All CT scans are performed using dose optimization technique as appropriate and may include automated exposure control or mA/KV adjustment according to patient size. FINDINGS: An intracranial bleed is not seen . The ventricles are normal in caliber. No extra-axial fluid collection is noted. A 6.4 centimeter low-density area has progressed within the right frontal lobe. Additional low-densit y areas within the right occipital, right parietal and left frontal lobes appear less prominent. Low-density within the caudate and basal ganglia bilaterally. Low-density within the temporal lobes without significant change. Fluid within the sinuses/ mastoids is not seen. 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 This can be confirmed with MRI Improvement in low-density areas within the right occipital, right parietal and left frontal lobes No significant change in additional bilateral low-density areas.
[2021-01-21 10:48] LABS: Absolute Lymphocytes (CBC) 1.7 K/uL (0.7-4.9); Basophils % 0.2 % (0-1.3); Hematocrit 42.3 % (39.6-49.0); MPV 8.9 fL (7.6-11.3); RBC Red Blood Cell Count 4.56 M/uL (4.33-5.43)
[2021-01-21 10:52] LABS: Protime INR 0.94
[2021-01-21 11:25] LABS: Barbiturates NEGATIVE (NEGATIVE); Benzodiazepines NEGATIVE (NEGATIVE); Cocaine NEGATIVE (NEGATIVE); METHAMPHETAM NEGATIVE (NEGATIVE); Methadone NEGATIVE (NEGATIVE); Opiates NEGATIVE (NEGATIVE); Phencyclidine NEGATIVE (NEGATIVE); THC Cannibis NEGATIVE (NEGATIVE)
[2021-01-21 11:41] LABS: ALT/SGPT 17 U/L (12-78); AST/SGOT 9 U/L (15-37); Albumin 4.1 g/dL (3.4-5.0); Alkaline Phosphatase 74 U/L (45-117); BUN Blood Urea Nitrogen 10 mg/dL (7-18); Bilirubin Direct < 0.1 mg/dL (0-0.2); Bilirubin Total 0.2 mg/dL (0.2-1.0); Glucose Level 78 mg/dL (74-106); Potassium 4.4 mmol/L (3.5-5.1); Protein, Total 7.6 g/dL (6.4-8.2); Sodium Level 140 mmol/L (136-145); Valproic Acid (Depakene) Level 70.4 ug/mL (50-100)
[2021-01-21 11:54] LABS: Bicarbonate 11 mmol/L (21-32)
--- NOTE | 2021-01-21 15:59 | EDPHYS ---
Physician Documentation [facility] Name: Lucien Calvillo Jr Age: 30 yrs Sex: Male : 1990 Arrival Date: 01/21/2021 Time: 09:37 Bed 26 Private MD: ED Physician Jp Rios HPI: 01/21 09:49 This 30 yrs old Male presents to ER via Unassigned with complaints of Seizure. kdr 09:49 The patient presents with a history of multiple seizures, an unknown number, that last kdr an unknown period of time. Character of seizure(s): Loss of consciousness: the patient experienced loss of consciousness, Motor activity: generalized, Incontinence: none, Apnea: the patient did not experience apnea. Seizure onset: this morning, at 08:30. Context: the seizure(s) was witnessed, by a bystander, by the residential staff, occurred at a residential or assisted living facility, occurred while the patient was at rest, Contributing factors: unknown. 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 He is currently supposed to be taking Keppra and Depakote. It is unknown whether or not he has missed any doses. We will check a Depakote level and possibly supplement that if low. Associated injury: The patient did not suffer any apparent associated injury. EMS care: Ativan, Patient had intermittent resolution of the seizures with the Ativan given however he would then have recurrent seizures. Current symptoms: confusion, decreased level of consciousness. The patient has experienced similar episodes in the past. It is unknown whether or not the patient has recently seen a physician. Historical: - Allergies: 09:58 Amoxicillin; ss - PMHx: 09:58 Bipolar disorder; CVA; MELAS; Seizures; ss - Immunization history:: Unknown. - Social history:: Smoking status: unknown. ROS: 09:49 Constitutional: Patient is unable to relate any review of systems secondary to his kdr altered mental status 09:49 Unable to obtain ROS due to altered mental status. Exam: 09:49 Constitutional: This is a well developed, well nourished patient who is somewhat awake kdr and responding to questions though it is difficult to understand what he saying. However he is in no acute distress. At the time of my initial evaluation the patient had received several milligrams of Ativan IM via EMS and 1 mg IV in the ED Head/Face: Normocephalic, atraumatic. Eyes: Pupils equal round and reactive to light, extra-ocular motions intact. Lids and lashes normal. Conjunctiva and sclera are non-icteric and not injected. Cornea within normal limits. Periorbital areas with no swelling, redness, or edema. ENT: Nares patent. No nasal discharge, no septal abnormalities noted. Tympanic membranes are normal and external auditory canals are clear. Oropharynx with no redness, swelling, or masses, exudates, or evidence of obstruction, uvula midline. Mucous membranes moist. Neck: Trachea midline, no thyromegaly or masses palpated, and no cervical lymphadenopathy. Supple, full range of motion without nuchal rigidity, or vertebral point tenderness. No Meningismus. Chest/axilla: Normal chest wall appearance and motion. Nontender with no deformity. No lesions are appreciated. Respiratory: Lungs have equal breath sounds bilaterally, clear to auscultation and percussion. No rales, rhonchi or wheezes noted. No increased work of breathing, no retractions or nasal flaring. Abdomen/GI: Soft, non-tender, with normal bowel sounds. No distension or tympany. No guarding or rebound. No evidence of tenderness throughout. Back: No spinal tenderness. No costovertebral tenderness. Full range of motion. Skin: Warm, dry with normal turgor. Normal color with no rashes, no lesions, and no evidence of cellulitis. MS/ Extremity: Pulses equal, no cyanosis. Neurovascular intact. Full, normal range of motion. Psych: Awake, alert, with orientation to person, place and time. Behavior, mood, and affect are within normal limits. 09:49 Neuro: Orientation: Generally weak and poorly responsive though he does respond to questions. He is difficult to understand due to his diminished mental status, Mentation: slow to respond, confused, Memory: unable to test, Cranial nerves: Grossly intact, Motor: moves all fours, Gait: not tested. Vital Signs: 11:09 BP 103 / 63; Pulse 112; Resp 21; Temp 98.3; Pulse Ox 100% on 2 lpm NC; aj2 12:00 BP 129 / 72; Pulse 104; Resp 16; Pulse Ox 99% on 2 lpm NC; kh1 13:00 BP 123 / 75; Pulse 100; Resp 20 S; Pulse Ox 100% on 2 lpm NC; kh1 14:00 BP 108 / 66; Pulse 101; Resp 18; Pulse Ox 99% on 2 lpm NC; kh1 15:40 BP 126 / 65; Pulse 107; Resp 18; Temp 97.9(TE); Pulse Ox 100% ; kh1 19:30 BP 108 / 65; Pulse 89; Resp 18; Temp 98.4(O); Pulse Ox 100% on R/A; kh1 20:30 BP 105 / 77; Pulse 107; Resp 16; Temp 97.9; Pulse Ox 100% on R/A; kh1 Kendra Coma Score: 10:08 Eye Response: to voice(3). Verbal Response: inappropriate words(3). Motor Response: kh1 withdraws from pain(4). Total: 10. MDM: 09:49 Data reviewed: vital signs, nurses notes, lab test result(s). Counseling: I had a kdr detailed discussion with the patient and/or guardian regarding: the historical points, exam findings, and any diagnostic results supporting the discharge/admit diagnosis, lab results, radiology results. 11:00 ED course: Continues to be stable in the ED. He has not required any further chemical kdr intervention.. 12:43 ED course: Patient continues to be stable in the ED. Not requiring any intervention. He kdr is presently in MRI for his scan.. 15:59 Patient medically screened. kdr 19:01 ED course: Just spoke with the sister the patient. I explained all lab results kdr including the repeat chemistry due to the low CO2. 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 She stated she understood that this was not done and the reasons for this. She asked a few questions to which I responded and she was happy with the evaluation and interventions done. And she was agreeable to and happy with the plan to return the patient to the facility from which she had come. Patient was discharged to the care facility in stable condition without further complication. 01/21 09:48 Order name: Acetaminophen; Complete Time: 12:14 kdr 01/21 09:48 Order name: Basic Metabolic Panel; Complete Time: 12:14 kdr 01/21 09:48 Order name: CBC with Diff; Complete Time: 10:59 kdr 01/21 09:48 Order name: ETOH Level; Complete Time: 12:14 kdr 01/21 09:48 Order name: Hepatic Function; Complete Time: 12:14 kdr 01/21 09:48 Order name: PT-INR; Complete Time: 12:14 [facility] 01/21 09:48 Order name: Ptt, Activated; Complete Time: 12:14 kdr 01/21 09:48 Order name: Salicylate; Complete Time: 12:14 kdr 01/21 09:48 Order name: Urine Drug Screen; Complete Time: 12:14 kdr 01/21 09:48 Order name: CT Head Brain wo Cont; Complete Time: 10:59 kdr 01/21 09:48 Order name: Depakote; Complete Time: 12:14 [facility] 01/21 10:36 Order name: Urine Dipstick-Ancillary; Complete Time: 10:59 EDMS 01/21 11:02 Order name: MRI - Brain Wo Cont kdr 01/21 17:11 Order name: BMP; Complete Time: 18:55 kh1 01/21 09:48 Order name: EKG; Complete Time: 09:49 [facility] 01/21 09:48 Order name: EKG - Nurse/Tech; Complete Time: 10:39 kdr 01/21 09:48 Order name: IV Saline Lock; Complete Time: 10:00 [facility] 01/21 09:48 Order name: Labs collected and sent; Complete Time: 10:00 [facility] 01/21 09:48 Order name: Suicide Screening ([place]) [facility] 01/21 09:48 Order name: Urine Dipstick-Ancillary (obtain specimen); Complete Time: 10:39 kdr 01/21 10:06 Order name: Labs - recollect needed; Complete Time: 10:39 mt Administered Medications: 09:47 Drug: Ativan (LORazepam) 1 mg Route: IVP; Site: right forearm; 14:30 Drug: Ativan (LORazepam) 1 mg Route: IVP; Site: right wrist; kh1 19:34 Follow up: Response: No adverse reaction; Marked relief of symptoms; Patient is sedated 1 15:30 Drug: Ativan (LORazepam) 1 mg Route: IVP; Site: right wrist; kh1 19:32 Follow up: Response: No adverse reaction; Marked relief of symptoms; Patient is sedated 1 19:33 Follow up: Response: No adverse reaction; Marked relief of symptoms; Patient is sedated kh1 15:45 Drug: Ativan (LORazepam) 1 mg Route: IVP; Site: right wrist; 1 19:30 Follow up: Response: Marked relief of symptoms; Patient is sedated kh1 19:31 Follow up: Response: No adverse reaction; Marked relief of symptoms; Patient is sedated kh1 Disposition Summary: 01/21/21 15:59 Discharge Ordered Location: Home kdr Problem: an acute exacerbation kdr Symptoms: are resolved kdr Condition: Stable kdr Diagnosis - Other seizures - Recurrent and breakthrough kdr Followup: kdr - With: Private Physician - When: 2 - 3 days - Reason: If symptoms return, Further diagnostic work-up, Recheck today's complaints, Continuance of care, Re-evaluation by your physician Discharge Instructions: - Discharge Summary Sheet kdr - Seizure, Adult, [id number] kdr Forms: - Medication Reconciliation Form kdr - Thank You Letter kdr - SBAR form 1 Signatures: Dispatcher [employer] Jp Simon MD MD kdr Rosa Isela Boone RN RN Shruti Humphries mt, Kecia 1 John Giordano 2
--- NOTE | 2021-01-21 15:59 | ER ---
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 Having seizures ss every 10-15 minutes since 0800 this morning. 09:58 Coronavirus screen: Client denies travel out of the [place] in the last 14 days. Ebola ss Screen: Patient denies exposure to infectious person. Patient denies travel to an Ebola-affected area in the 21 days before illness onset. Initial Sepsis Screen: Does the patient meet any 2 criteria? HR > 90 bpm. Does the patient have a suspected source of infection? No. Patient's initial sepsis screen is negative. Risk Assessment: Do you want to hurt yourself or someone else? Patient reports no desire to harm self or others. Onset of symptoms was January 21, 2021. 09:58 Method Of Arrival: EMS: [facility] ss 09:58 Acuity: GINNY 2 ss 10:01 Care prior to arrival: Ativan 2 mg given IM. Multiple unsuccessful attempts to obtain ss PIV by EMS en route to ED. Triage Assessment: 10:07 General: Appears distressed, malnourished, Behavior is active sz. Pain: Denies pain. kh1 Noted to be Also complains of no other associated symptoms. Neuro: Level of Consciousness is awake, Oriented to Medical Reception Specialist are Gait is Speech. Historical: - Allergies: 09:58 Amoxicillin; ss - PMHx: 09:58 Bipolar disorder; CVA; MELAS; Seizures; ss - Immunization history:: Unknown. - Social history:: Smoking status: unknown. Screenin:03 Nutritional screening:. aj2 10:05 Abuse screen: Denies threats or abuse. Tuberculosis screening: No symptoms or risk kh1 factors identified. Fall Risk Secondary diagnosis (15 points) seizures, IV access (20 points). Ambulatory Aid- None/Bed Rest/Nurse Assist (0 pts). Gait- Impaired (20 pts.). Mental Status- Overestimates/Forgets Limitations (15 pts.). Sepsis Screening: . Infection: SIRS - Systemic Inflammatory Response Syndrome: 2 or more indicates positive screen:. Exposure risk/Travel Screening: None identified. Assessment: 10:03 Pain: Unable to use pain scale. Neuro: Active seizure. Seizure precautions in place. IV aj2 access obtained upon arrival. Medications given as ordered. Transported to CT.. 11:09 Reassessment: Patient appears in no apparent distress at this time. Patient and/or aj2 family updated on plan of care and expected duration. Pain level reassessed. Patient is alert, oriented x 3, equal unlabored respirations, skin warm/dry/pink. 14:36 Reassessment: 1mg Ativan IV given per Dr Rios for MRI. kh1 15:40 Reassessment: Patient appears in no apparent distress at this time. Patient is alert, aj2 oriented x 3, equal unlabored respirations, skin warm/dry/pink. Patient states symptoms have improved. 15:40 General: Returned from MRI. NAD noted. . aj2 17:00 Reassessment: Patient appears in no apparent distress at this time. No changes from [facility] previously documented assessment. Patient and/or family updated on plan of care and expected duration. Pain level reassessed. Patient is alert, oriented x 3, equal unlabored respirations, skin warm/dry/pink. 19:30 Reassessment: Patient appears in no apparent distress at this time. Received sleeping; kh1 arouses easily; disoriented; pulled right hand saline lock out of hand with controlled bleeding and pressure dsg applied; no seizure activity noted; VSS. 20:30 Reassessment: Patient appears in no apparent distress at this time. Patient states kh1 symptoms have improved. No seizure activity noted; [facility] here \T\ transporting pt back to [facility] via stretcher; awakened \T\ assisted with move onto stretcher; voices no complaints; VSS.. Vital Signs: 11:09 BP 103 / 63; Pulse 112; Resp 21; Temp 98.3; Pulse Ox 100% on 2 lpm NC; aj2 12:00 BP 129 / 72; Pulse 104; Resp 16; Pulse Ox 99% on 2 lpm NC; kh1 13:00 BP 123 / 75; Pulse 100; Resp 20 S; Pulse Ox 100% on 2 lpm NC; kh1 14:00 BP 108 / 66; Pulse 101; Resp 18; Pulse Ox 99% on 2 lpm NC; kh1 15:40 BP 126 / 65; Pulse 107; Resp 18; Temp 97.9(TE); Pulse Ox 100% ; kh1 19:30 BP 108 / 65; Pulse 89; Resp 18; Temp 98.4(O); Pulse Ox 100% on R/A; kh1 20:30 BP 105 / 77; Pulse 107; Resp 16; Temp 97.9; Pulse Ox 100% on R/A; kh1 Vitals: 10:03 Cardiac Rhythm Assessment Sinus tach. aj2 11:09 Cardiac Rhythm Assessment Sinus tach. aj2 15:40 Cardiac Rhythm Assessment Sinus tach. aj2 [place] Coma Score: 10:08 Eye Response: to voice(3). Verbal Response: inappropriate words(3). Motor Response: kh1 withdraws from pain(4). Total: 10. ED Course: 09:37 Patient arrived in ED. kh1 09:47 Jp Rios MD is Attending Physician. kdr 09:49 Ivonne De Santiago is Primary Nurse. kh1 09:58 Arm band placed on left wrist. ss 09:59 Triage completed. ss 10:03 Patient has correct armband on for positive identification. aj2 10:03 Inserted saline lock: 20 gauge forearm, using aseptic technique. aj2 10:05 Patient has correct armband on for positive identification. Bed in low position. Call [facility] light in reach. Side rails up X2. environmental monitoring specialist on. Pulse ox on. NIBP on. 10:05 No provider procedures requiring assistance completed. Inserted saline lock: 20 gauge kh1 in right wrist, using aseptic technique. 10:08 Seizure precautions initiated. kh1 10:09 CT Head Brain wo Cont In Process Unspecified. EDMS 10:39 Depakote Sent. kh1 10:39 Acetaminophen Sent. kh1 10:39 Basic Metabolic Panel Sent. kh1 10:39 CBC with Diff Sent. kh1 10:39 ETOH Level Sent. kh1 10:39 Hepatic Function Sent. kh1 10:39 PT-INR Sent. kh1 10:40 Ptt, Activated Sent. kh1 11:09 No apparent distress. Appears to be sleeping. aj2 11:09 IV is patent, is intact, Flushed left forearm. aj2 15:40 No apparent distress. Appears to be sleeping. aj2 15:40 IV is patent, is intact. aj2 17:20 BMP Sent. ss 20:30 IV discontinued, intact, bleeding controlled, No redness/swelling at site. Pressure kh1 dressing applied. Administered Medications: 09:47 Drug: Ativan (LORazepam) 1 mg Route: IVP; Site: right forearm; ss 14:30 Drug: Ativan (LORazepam) 1 mg Route: IVP; Site: right wrist; kh1 19:34 Follow up: Response: No adverse reaction; Marked relief of symptoms; Patient is sedated kh1 15:30 Drug: Ativan (LORazepam) 1 mg Route: IVP; Site: right wrist; kh1 19:32 Follow up: Response: No adverse reaction; Marked relief of symptoms; Patient is sedated kh1 19:33 Follow up: Response: No adverse reaction; Marked relief of symptoms; Patient is sedated kh1 15:45 Drug: Ativan (LORazepam) 1 mg Route: IVP; Site: right wrist; kh1 19:30 Follow up: Response: Marked relief of symptoms; Patient is sedated kh1 19:31 Follow up: Response: No adverse reaction; Marked relief of symptoms; Patient is sedated kh1 Outcome: 15:59 Discharge ordered by . kdr 20:30 Discharged to [facility]. kh1 20:30 Condition: stable 20:30 Discharge instructions given to EMS, Instructed on discharge instructions, follow up kh1 and referral plans. Demonstrated understanding of Signatures: Dispatcher [employer] EDMS Jp Rios MD MD kdr Smirch, Shelby, RN RN ss Antunez, Elena, RN RN ea Harris, Kecia kh1 John Giordano aj2 Corrections: (The following items were deleted from the chart) 09:59 09:57 Chief complaint: ss ss 11:15 11:09 Reassessment: Patient appears in no apparent distress at this time. Patient aj2 and/or family updated on plan of care and expected duration. Pain level reassessed. Patient is alert, oriented x 3, equal unlabored respirations, skin warm/dry/pink. aj2 15:56 15:40 BP 126 / 65; Pulse 107bpm; Resp 18bpm; Pulse Ox 100%; Temp 20F; aj2 kh1 16:00 13:00 BP 108 / 66; Pulse 101bpm; Resp 18bpm; Pulse Ox 99% 2 lpm Nasal Cannula; kh1 kh1 01/22 04:11 01/21 23:28 Patient left the ED. ea kh1
[2021-01-21 18:03] LABS: BUN Blood Urea Nitrogen 8 mg/dL (7-18); Bicarbonate 22 mmol/L (21-32); Glucose Level 85 mg/dL (74-106); Potassium 4.5 mmol/L (3.5-5.1); Sodium Level 139 mmol/L (136-145)
[2021-01-21 23:42] VITALS: BP 126/65; TEMP 97.9; O2SAT 100
== END 2021-01-21 23:28 | disposition home or self-care (01) ==
LOC: ER 09:36
DX: G40.89 Other seizures (principal); E88.41 MELAS syndrome
CPT/HCPCS: 93005; 85025; 80048 ×2; 36415; 80320; 80329 ×2; 85610; 80076; 80164; 85730; 81003; 80307; 70450; 99285; J7040; J7030

== ENCOUNTER 2022-09-07 10:49 | Emergency (ER) | payer OTHER ==
--- OUTSIDE RECORDS SUMMARY | 2022-09-07 10:56 | XMS REPORT | Continuity of Care Document ---
:[address] [facility] t Address [address] [facility] [place] [address] Care Team Providers Name Role Phone ELENI HODGE Attending Clinician Unavailable CODY COX Attending Clinician Unavailable Doctor Unassigned, [place] Attending Clinician Unavailable Lisha Prabhakar RN Attending Clinician Rolly Rain Attending Clinician ROLLY RAIN Attending Clinician Unavailable EFFIE DIAZ Attending Clinician Unavailable Effie Diaz Attending Clinician RADHA MORIN Attending Clinician Unavailable Radha Morin Attending Clinician PAYTON MARIE Attending Clinician Unavailable FAB RAMOS III Attending Clinician Unavailable ELENI HODGE Admitting Clinician Unavailable Rolly Rain Admitting Clinician ROLLY RAIN Admitting Clinician Unavailable LISETTE GUERRERO Admitting Clinician Unavailable Lisette Guerrero Admitting Clinician EFFIE DIAZ Admitting Clinician Unavailable Effie Diaz Admitting Clinician HOLLY PEPPER Admitting Clinician Unavailable FAB RAMOS III Admitting Clinician Unavailable Payers Payer Name Policy Type Policy Number Effective Date Expiration Date Bryanna suazo [place] [id number] 2018 2020 00:00:00 00:00:00 [facility] [id number] 2020 MEDICAID 00:00:00 MEDICAID PENDING PENDING 2018 00:00:00 Problems Condition Condition Condition Status Onset Resolution Last Treating Co mments Source Name Details Category Date Date Treatment Clinician Date SEIZURES SEIZURES Diagnosis Active 2019-09-20 Memoria Active 11-30 16:43:00 l 11/30/2018 00:00: Reji song [address] MELAS MELAS Diagnosis Active 2019-09-20 Mem oria SYNDROME SYNDROME 11-16 16:42:00 l Active 00:00: [place] 11/16/2018 [facility] STROKE STROKE Diagnosis Active 2018-11-16 Me moria SYMPTOMS SYMPTOMS 11-16 23:36:00 l Active 00:00: [place] 11/16/2018 [facility] STROKE STROKE Diagnosis Active 2019-03-24 Me moria Active 10-28 16:17:00 l 10/28/2018 00:00: Reji song [facility] MELAS, MELAS, Diagnosis Active 2019-09-20 Me moria LACTIC LACTIC 10-26 16:40:00 l ACIDOSIS ACIDOSIS 00:00: Reji song STRK-LIKE STRK-LIKE 00 EPISO EPISO Active 10/26/2018 [facility] AMS AMS Diagnosis Active 2018-10-26 Mem oria Active 10-26 03:37:00 l 10/26/2018 00:00: Reji song [address] CEREBRAL CEREBRAL Diagnosis Active 2019-09-20 Memoria INFARCTION INFARCTION 16:40:00 l , , [place] UNSPECIFIE UNSPECIFIE D D Active [facility] Allergies, Adverse Reactions, Alerts Allergy Allergy Status Severity Reaction(s) Onset Inactive Treating Comm ents Source Name Type Date Date Clinician No Known NA Active [facility]ie 3-10 [facility] 12:29: l 25 ([place] [facility]) No Known NA Active [facility] Allergie 3-10 [facility] 10:37: l 47 ([place]) No Known NA Active [facility] Allergie 07-03 Hospita [facility] 21:57: l 43 ([facility] nt) No Known NA Active [facility]ism Allergie 07-03 Hospita [facility] 19:38: l 03 ([facility] nt) No Known NA Active [facility] Allergie 07-03 Hospita s 17:25: l 18 ([facility] nt) AMOXICIL DRUG Active Anaphylaxis Uni vers EZEQUIEL 6-21 ity of (BULK) 00:00: [address] amoxicil amoxicil Active Memori a ezequiel ezequiel l [place] Depakote Depakote Active Memori a <sup>1</ <sup>1</ l sup> sup> [place] Social History Smoking Status Start Date Stop Date Source Social History [facility] Medications Ordered Filled Start Stop Current Ordering Indication Dosage Frequency Signature Comments Components Source Medication Medication Date Date Medication? Clinician (SIG) Name Name carBAMazepi Yes 300 mg = 3 Memoria ne 100 mg 12-01 tab, PO, l oral 15:51: Q12H, # [place] tablet, 00 360 tab, 3 chewable Refill(s) Occupationa Yes See Memori a l Therapy 12-01 Instructio l 11:48: ns, MEGAN, [place] 00 ONCALL, Evaluate and Treat 3 times per week for 4 weeks, # 1 unit, 0 Refill(s) Physical Yes See Memoria Therapy 12-01 Instructio l 11:48: ns, MEGAN, [place] 00 ONCALL, Evaluate and Treat 3 [...] Levetiracet No 500 mg, Mem oria am 03 Route: PO, l 16:00: Drug form: [place] 00 TAB, Q12H, Dosing Weight 38.56, kg, Start date: 11/30/18 11:00:00 CDT, Duration: 30 day, Stop date: 12/30/18 9:00:00 CDT Co-Q10 No Notes: Memoria 8- (Same As: l 14:00: Co-Enzyme [place] Q10) L-Arginine No 4,000 mg, Me moria [...] ia 7-25 Same as: l 18:00: L-arginine 00 Co-Q10 200 0 Yes 800 mg, Andres cindy mg oral 7-25 PO, TID, # l capsule 17:11: 360 [place] 00 caplet, 0 Refill(s) levOCARNiti Yes 330 mg [...] l 03:50: L-arginine Vimpat No Notes: Memoria 7 Same as: l 14:00: Vimpat [place] 00 Vimpat No Notes: Memoria 11-17 Same as: l 22:00: Vimpat [place] 00 MEDICATION WASTE Product Size: 200 mg Product Wasted: ___ mg Carnitor No Notes: Memoria 11-17 (Same l 18:00: as:Carnito r) Vimpat No Notes: Memoria 11-17 Same as: l 15:39: Vimpat [place] 00 MEDICATION WASTE Product Size: 200 mg [...] as: l container 1 14:00: R-Gene 10) Docusate No Notes: Memoria 11-17 (Same as: l 14:00: Colace) (Do Not Crush) sennosides, No Notes: Andres cindy RESIDENTIAL 11-17 (Same as: l 14:00: Senokot) olanzapine No Notes: Memor ia 11-17 (Same as: l 13:22: ZyPREXA) L-Arginine No 5,000 mg, Me moria 11-17 Route: IV, l 13:19: TID, Dosing Weight 50, kg, Priority: NOW, Start date: 11/17/18 8:19:00 CDT, Duration: 30 day, Stop date: 12/16/18 17:00:00 CDT heparin No Notes: Memoria 11-17 porcine l 13:00: [...] CDT L-Arginine Yes 5,000 mg, Me moria - PO, TID, 0 l 07:36: Refill(s) lacosamide No 50 mg = 1 Me moria 50 MG Oral 11-17 tab, PO, l Tablet 07:36: BID, # 30 Reji n [Vimpat] 00 day, 0 Refill(s) CoQ10 No 200 mg, Memoria - PO, Daily, l 07:36: 0 Refill(s) olanzapine No 5 mg, PO, Me moria - Q12H, # 20 l 07:36: tab, 0 Refill(s) Saline 2019-0 No Notes: Memoria Flush 0.9% 7-21 (Same as: l 05:33: BD Posiflush) iodixanol No 100 mL, Memor ia 11-17 Route: l 03:35: IVP, Drug Form: SOLN, Dosing Weight 61.364, kg, ONCALL, STAT, Start date: 11/16/18 22:35:00 CDT, Duration: 1 doses or times, Dose = 2.2ml/kg, Max dose = 100ml -- "To be infused by Radiology Staff ONLY" Saline No Notes: Memoria Flush 0.9% 7-21 (Same as: l 03:19: BD Posiflush) lacosamide [...] = 2 M emoria 200 mg oral 7-09 cap, PO, l capsule 20:46: Daily, # Reji n 00 120 cap, 0 Refill(s) melatonin 3 Yes 6 mg = 2 Me moria mg oral 7-09 tab, PO, l tablet 19:48: Bedtime, [place] 00 PRN Sleep, # 60 tab, 0 Refill(s) lacosamide No 50 mg = 1 Me moria 50 mg oral 7-09 tab, PO, l tablet 19:48: BID, # 7 [place] 00 tab, 0 Refill(s) olanzapine No 5 [...] 11-05 Rate: 100 l chloride 01:55: ml/hr, [place] 23.4% IV 77 00 Infuse mEq over: 10 hr, Route: IV, Dosing Weight 50 kg, Total Volume: 1,000, Priority: Routine, Start date: 11/04/18 20:55:00 CDT, Duration: 30 day, Stop date: 12/04/18 20:54:00 CDT, 1.55, m2, 0 magnesium 2019-0 No Notes: Memori a sulfate 11-03 WASTE: F/P l 17:44: - Sink; E - Municipal Trash Bin Potassium 2019-0 No 40 mEq, 2 Mem oria Chloride 7- tab, l 17:40: Route: PO, Drug form: ERTAB, ONCE, Dosing Weight 50, kg, Priority: NOW, Start date: 11/03/18 12:40:00 CDT, Stop date: 11/03/18 12:40:00 CDT, 0 arginine 2019-0 No Notes: Memoria 7-07 (Same as: l 15:45: Arginine) potassium 2019-0 No 20 mEq, Memor ia chloride -07 100 mL, l 13:30: Route: IVPB, Drug form: INJ, Q2H, Start date: 11/03/18 8:30:00 CDT, Duration: 3 doses or times, Stop date: 11/03/18 12:00:00 CDT, 0 Potassium 2019-0 No 10 mEq, Memor ia Chloride - Route: l 12:22: IVPB, Q1H, Dosing Weight 50, kg, Total Dose = 60 meq, Start date: 11/03/18 7:22:00 CDT, Duration: 6 doses or times, Stop date: 11/03/18 12:22:00 CDT, Periphe ral Line Magnesium 2019-0 No Notes: Memori a Sulfate - WASTE: F/P l 12:21: - Sink; E - Municipal Trash Bin magnesium 2019-0 No Notes: Memori a sulfate 11-02 WASTE: F/P l 19:00: - Sink; E - Municipal Trash Bin Magnesium No Notes: Memori a Sulfate 11-02 WASTE: F/P l 11:29: - Sink; E - Municipal Trash Bin Potassium No Notes: Memori a Chloride - (Same as: l 11:00: KCL) Infuse over 2 hours. potassium No Notes: Memori a chloride -05 (Same as: l 14:00: Potassium Chloride) Marinol No Notes: Memoria -04 (Same as: l 22:00: Marinol) Magnesium No Notes: Memori a Sulfate 10-31 WASTE: F/P l 17:16: - Sink; E [...] ral Line Melatonin No Notes: Memori a 10-31 (Same as: l 07:45: Melatonin) Phenergan No Notes: Do Mem oria 10-31 not give l 03:30: IV push. (Same [...] peripheral ly. olanzapine No Notes: Memor ia - (Same As: l 16:56: ZyPREXA IM). Reconstitu [...] l 1.33 MEQ/ML 14:00: Potassium H erm Oral 00 Chloride) Solution Vancomycin No 2001 mg: Me [...] mg Tylenol No Notes: Max Andres cindy - acetaminop l 11:51: hen = 4000mg/day (4 gm/day). (Same as: Tylenol) L-Arginine No Notes: Memor ia - (Same as: l 09:45: Arginine) Potassium No Notes: Memori a Chloride 10-30 (Same as: l 09:41: KCL) Infuse over 2 hours. NS (Bolus) No 500 mL, Andres cindy IV 10-30 500 ml/hr, l 05:46: Infuse [place] 00 Over: 1 hr, Route: IV, 500, Drug form: INJ, ONCE, Priority: STAT, Dosing Weight 50 kg, Start date: 10/30/18 0:46:00 CDT, Stop date: 10/30/18 0:46:00 CDT, 0 Zyprexa 0 No Notes: Memoria 10-30 (Same as: l 00:18: ZyPREXA) [place] 00 NS (Bolus) No 500 mL, Andres cindy IV 10-29 500 ml/hr, l 08:57: Infuse [place] 00 Over: 1 hr, Route: IV, 500, Drug form: INJ, ONCE, Priority: STAT, Dosing Weight 50 kg, Start date: 10/29/18 3:57:00 CDT, Stop date: 10/29/18 3:57:00 CDT, 0 Potassium No Notes: Memori a Chloride 10-29 (Same as: l 07:00: KCL) [place] 00 Infuse over 2 hours. D10W 980.75 No 980.75 mL, Memoria mL + sodium 10-28 Rate: 200 l chloride 23:03: ml/hr, [place] 23.4% IV 77 00 Infuse mEq over: 5 hr, Route: IV, Dosing Weight 50 kg, Total Volume: 1,000, Priority: Routine, Start date: 10/28/18 18:03:00 CDT, Duration: 30 day, Stop date: 11/27/18 18:02:00 CDT, 1.55, m2, 0 sterile No 2.1 mL, Memoria water 10-28 Route: l 19:54: MISC, Drug [place] 00 Form: INJ, Q4H, PRN Other -See Comment, Start date: 10/28/18 14:54:00 CDT, Stop date: 11/27/18 14:53:00 CDT, 0 Geodon No Notes: Memoria - Reconstitu l 19:48: te with [place] 00 1.2 ml of sterile water. Final [...] day, Stop date: 11/25/18 9:00:00 CDT Hiren No Notes: Memoria 6-29 Reconstitu l 23:27: te with 1.2 ml of sterile water. Final concentrat ion = 20 mg/1ml. Maximum 40 mg/24 hours (Same As: Hiren). MEDICATION WASTE Product Size: 20 mg Product Wasted: 0mg Keppra No Notes: Memoria 6-29 Same as l 23:00: Keppra Mix with 100 mL NS, LR or D5W MEDICATION WASTE Product Size: 500 mg Product Wasted: ___ mg R-Gene 10 4 No Notes: Andres cindy gm + empty 10-26 (Same as: l container 1 20:00: R-Gene 10) D10W 980.75 No 980.75 mL, Memoria mL + sodium -29 Rate: 150 l chloride 17:44: ml/hr, [place] 23.4% IV 77 00 Infuse mEq over: 6.7 hr, Route: IV, Dosing Weight 50 kg, Total Volume: 1,000, Priority: Routine, Start date: 10/26/18 12:44:00 CDT, Duration: 30 day, Stop date: 11/25/18 12:44:00 CDT, 1.55, m2, 0 arginine No 50 mL, Memoria 10% 6-29 Rate: 9.09 l additive 17:44: ml/hr, [place] 5,000 mg 00 Infuse [20 over: 5.5 mg/kg/hr] + hr, Route: Drug Only IV, Dosing 50 mL Weight 45.455 kg, Total Volume: 50 mL, Start date: 10/26/18 12:44:00 CDT, Duration: 30 day, Stop date: 11/25/18 12:43:00 CDT, 1.46, m2 ubiquinone No Notes: Memor ia 6-29 (Same As: l 14:00: Co-Enzyme Q10) Saline No Notes: Memoria Flush 0.9% 6-29 (Same as: l 14:00: BD Posiflush) L-Arginine No 5,000 mg, Me moria 6- Route: PO, l 14:00: TID, kg, [place] 00 Start date: 10/26/18 9:00:00 CDT, Duration: 30 day, Stop date: 11/24/18 17:00:00 CDT Phenergan No 25 mg, Memori a 6-29 Route: l 13:58: IVPB, [place] 00 ONCE, kg, Start date: 10/26/18 8:58:00 CDT, Stop date: 10/26/18 8:58:00 CDT Dexmedetomi No 400 Memori a dine 6-29 microgram, l 12:54: Rate: Titrate, Start Dose: 0.2 microgram/ kg/hr, Titration: 0.1 microgram/ kg/hr every 30 min, Goal(s): RASS 0, Max Dose: 1.5 microgram/ kg/hr, Route: IV, Dosing Weight 45.455 kg, Total Volume: 100, Start date: 10/26/18 7:54:00 CDT, Durati... Saline No Notes: Memoria Flush 0.9% 6-29 (Same as: l 12:45: BD [place] Posiflush) Nystatin No Notes: Memoria 100 UNT/MG 10-26 (Same l Topical 12:45: as:Mycosta Herm maria e Powder 00 tin, Nilstat) For external use only. Ativan No Notes: Memoria 10-26 (Same as: l 11:19: Ativan) [place] 00 Haldol No Notes: Memoria 6 (Same as: l 11:11: Haldol) [place] 00 Versed No 5 mg, Memoria 10-26 Route: l 10:45: IVP, ONCE, [place] kg, Start date: 10/26/18 5:45:00 CDT, Stop date: 10/26/18 5:45:00 CDT Ativan No 2 mg, Memoria 10-26 Route: l 10:42: IVP, Drug form: INJ, Q6H, kg, PRN Anxiety, Start date: 10/26/18 5:42:00 CDT, Duration: 30 day, Stop date: 11/25/18 5:41:00 CDT Ativan No 2 mg, Memoria 10-26 Route: PO, l 10:41: Drug form: [place] 00 TAB, TID, kg, PRN Anxiety, Start date: 10/26/18 5:41:00 CDT, Duration: 30 day, Stop date: 11/25/18 5:40:00 CDT Saline No Notes: Memoria Flush 0.9% 10-26 (Same as: l 10:23: BD [place] 00 Posiflush) Haldol No 2.5 mg, Memoria 10-26 Route: IM, l 09:21: ONCE, kg, [place] 00 Start date: 10/26/18 4:21:00 CDT, Stop date: 10/26/18 4:21:00 CDT Haldol No 5 mg, Memoria 10-26 Route: IM, l 09:20: ONCE, kg, [place] 00 Priority: STAT, Start date: 10/26/18 4:20:00 CDT, Stop date: 10/26/18 4:20:00 CDT Versed 2019-0 No 3 mg, Memoria 10-26 Route: IM, l 09:20: ONCE, kg, [place] 00 Start date: 10/26/18 4:20:00 CDT, Stop [...] Source Respitory Rate 2018-12-01 17:30:00 Memori al [place] Systolic (mm Hg) 2018-12-01 17:30:00 Andres rial [place] Diastolic (mm Hg) 2018-12-01 17:30:00 Mem orial [place] Temperature Oral (F) 2018-12-01 17:30:00 97.7 F Memorial [place] Heart Rate 2018-12-01 17:30:00 [facility] [place] Heart Rate 2018-12-01 13:14:00 Memorial [place] Temperature Oral (F) 2018-12-01 13:14:00 98.2 F Memorial [place] Systolic (mm Hg) 2018-12-01 13:14:00 Andres rial [place] Diastolic (mm Hg) 2018-12-01 13:14:00 Mem orial [place] Respitory Rate 2018-12-01 13:14:00 Memori al [place] Heart Rate 2018-12-01 06:00:00 Memorial [place] Respitory Rate 2018-12-01 06:00:00 Memori al [place] Systolic (mm Hg) 2018-12-01 06:00:00 Andres rial [place] Diastolic (mm Hg) 2018-12-01 06:00:00 Mem orial [place] Temperature Oral (F) 2018-12-01 06:00:00 97.2 F [facility] [place] Height 2018-11-30 07:44:00 165.1 cm [facility] [place] Weight 2018-11-30 07:44:00 [facility] [place] BMI Calculated 2018-11-30 07:44:00 Memori al [place] Temperature Oral (F) 2018-11-23 00:48:00 97.9 F [facility] [place] Heart Rate 2018-11-23 00:48:00 [facility] [place] Respitory Rate 2018-11-23 00:48:00 Memori al [place] Systolic (mm Hg) 2018-11-23 00:48:00 Andres rial [place] Diastolic (mm Hg) 2018-11-23 00:48:00 Mem orial [place] Heart Rate 2018-11-22 20:18:00 Memorial [place] Respitory Rate 2018-11-22 20:18:00 Memori al [place] Systolic (mm Hg) 2018-11-22 20:18:00 Andres rial [place] Diastolic (mm Hg) 2018-11-22 20:18:00 Mem orial [place] Temperature Oral (F) 2018-11-22 20:18:00 98.1 F [facility] [place] Temperature Oral (F) 2018-11-22 16:20:00 97.8 F [facility] [place] Systolic (mm Hg) 2018-11-22 16:20:00 Andres rial [place] Diastolic (mm Hg) 2018-11-22 16:20:00 Mem orial [place] Heart Rate 2018-11-22 16:20:00 [facility] [place] Respitory Rate 2018-11-22 16:20:00 Memori al [place] Weight 2018-11-20 17:58:00 [facility] [place] BMI Calculated 2018-11-20 17:58:00 Memori al [place] Height 2018-11-20 17:58:00 165.1 cm [facility] [place] Height 2018-11-17 07:24:00 165.1 cm [facility] [place] Weight 2018-11-17 07:24:00 [facility] [place] BMI Calculated 2018-11-17 07:24:00 Memori al [place] Weight 2018-11-17 03:15:00 [facility] [place] BMI Calculated 2018-11-17 03:15:00 Memori al [place] Height 2018-11-17 03:15:00 165.1 cm [facility] [place] Systolic (mm Hg) 2018-11-05 20:41:00 Andres rial [place] Diastolic (mm Hg) 2018-11-05 20:41:00 Mem orial [place] Respitory Rate 2018-11-05 20:41:00 Memori al [place] Heart Rate 2018-11-05 20:41:00 [facility] [place] Temperature Oral (F) 2018-11-05 20:41:00 98.6 F [facility] [place] Heart Rate 2018-11-05 16:53:00 [facility] [place] Temperature Oral (F) 2018-11-05 16:44:00 98.9 F [facility] [place] Heart Rate 2018-11-05 16:44:00 [facility] [place] Respitory Rate 2018-11-05 16:44:00 Memori al [place] Systolic (mm Hg) 2018-11-05 16:44:00 Andres rial [place] Diastolic (mm Hg) 2018-11-05 16:44:00 Mem orial [place] Temperature Oral (F) 2018-11-05 13:03:00 98.8 F [facility] [place] Respitory Rate 2018-11-05 13:03:00 Memori al [place] Systolic (mm Hg) 2018-11-05 13:03:00 Andres rial [place] Diastolic (mm Hg) 2018-11-05 13:03:00 Mem orial [place] Height 2018-10-30 12:04:00 172.72 cm [facility] [place] Weight 2018-10-30 12:04:00 [facility] [place] Weight 2018-10-27 01:35:00 [facility] [place] BMI Calculated 2018-10-27 01:35:00 Memori al [place] Height 2018-10-27 01:35:00 172.72 cm [facility] [place] Weight 2018-10-26 13:00:00 [facility] [place] BMI Calculated 2018-10-26 13:00:00 Memori al [place] Height 2018-10-26 13:00:00 167.64 cm [facility] [place] Procedures This patient has no known procedures. Encounters Start End Encounter Admission Attending Care Care Encounter Source Date/Time Date/Time Type Type Clinicians Facility Department ID 2018-11-16 Inpatient [facility] MED [id number] [facility] H 22:55:57 2020-07-03 2020-07-03 Emergency YOVANI HODGE QER [id number] 4- Confucianism 17:23:00 17:23:00 ELENI [id number] [place] 2020-02-04 2020-02-04 Outpatient Jam [facility] [id number] Univers 14:00:00 14:00:00 CODY faith [facility] 2020-02-03 2020-02-03 Orders Doctor TREVIN [id number] 00:00:00 00:00:00 Only Unassigned, MARS [id number] [place] [facility] [id number] 2019-12-19 2019-12-19 Orders Doctor TREVIN [id number] 00:00:00 00:00:00 Only Unassigned, MARS [id number] [place] [facility] [id number] 2019-01-17 2019-01-17 Patient Lisha Prabhakar [id number] 00:00:00 00:00:00 Outreach [place] [id number] [facility] [id number] 2018-12-19 2018-12-19 Patient Lisha Prabhakar [id number] 00:00:00 00:00:00 Outreach [place] [id number] [facility] [id number] 2018-11-30 2018-12-01 [facility] [id number] Memoria 07:23:00 20:17:00 jam [place] 15 [facility] 2018-11-30 2018-12-01 Outpatient Briseyda [facility] [id number] 02:23:00 15:17:00 Rolly 15 2018-11-30 2018-12-01 Inpatient U BRISEYDA [facility] [id number] [facility] 02:23:00 15:17:00 ROLLY 2018-11-17 2018-11-23 [facility] [id number] Memoria 03:08:00 02:05:00 jam [place] 00 [facility] 2018-11-17 2018-11-22 [facility]500 [facility] 00:33:00 21:05:00 EFFIE 2018-11-16 2018-11-22 Outpatient Joe [facility] [id number] 22:08:00 21:05:00 Effie 00 Abril 2018-10-26 2018-11-06 Inpatient [facility] [id number] Memoria 05:57:22 00:45:00 r [place] 00 l [facility] 2018-10-26 2018-11-05 Inpatient U MIKEL [facility] [id number] [facility] 05:23:00 19:45:00 RADHA 2018-10-26 2018-11-05 Outpatient Mikel [facility] [id number] 00:57:22 19:45:00 Amrou 00 2018-10-19 2018-10-23 Outpatient X FRANK, [facility] VIET [id number] Univers 18:32:14 17:15:00 PAYTON [facility] 2018-10-18 2018-10-18 Emergency X RACHEL III, [facility] ERT [id number] Univers 20:15:56 23:01:00 FAB [facility] Results Test Description Test Time Test Comments Results Result Comments Source ER SCREEN FOR HIV 1/2 2020-07-03 22:45:00 Test Item Value Reference Range Interpretation Comme nts HIV 1/2 AB (test code = SCRN NEGATIVE NEGATIVE This test is used for SCREENING HIV) purposes only. All reactive results are prelimenary and confirmation results will fo llow. CARBAMAZEPINE,[id number] 21:09:00 Test Item Value Reference Range Interpretation Comments CARBAMAZ (test code = CARBAMAZ) 5 UG/ML 4-12 COVID SYMPTOMATIC ER [id number] 21:05:00 Test Item Value Reference Range Interpretation Comments CORONAVIRUS (COVID-19)BY PCR (test NEGATIVE code = TTX21IHA) INFLUENZA [id number] 20:40:00 Test Item Value Reference Range Interpretation Comments FLU A (test code = FLU A) NEGATIVE NEGATIVE FLU B (test code = FLU B) NEGATIVE NEGATIVE FLU INTERNAL POSITIVE CNTRL (test PASS PASS code = FLU IPC) INFLUENZA LOT # (test code = FLULOT) [id number] INFLUENZA EXPIRATION DATE (test code [id number] = FLUEXP) URINE DRUG [id number] 19:04:00 Test Item Value Reference Range Interpretation Comments AMPHET (test code = NEGATIVE NEGATIVE This is an unconfirmed BAMP) screening. Resu lt are to be used for medical purposes (treat ment) only. Not inten ded for non-medical pur poses. Cut-off concent ration [...] PCP (test code = NEGATIVE NEGATIVE BMTPCP) [id number] 18:45:00 Test Item Value Reference Range Interpretation [...] glucose = GLUCOSE) normal <100 MG/ DL- [employer] recommendation* * CALCIUM (test [...] of age is not validated by e senior drafter an d may not represent t he patients true r enal function. [id number] 18:25:00 Test Item Value Reference Range Interpretation [...] 13.4 K/UL 1.2-7.2 H = NEUT) CHEM [id number] 16:03:00 Test Item Value Reference Range Interpretation Comments Lactic Acid Lvl (test code = Lactic 2.0 0.5-2.2 Acid Lvl) [facility] HermannCARDIAC [id number] 10:22:00 Test Item Value Reference Range Interpretation Comments Total CK (test code = Total CK) 82 12-191 [facility]2019-08-03 10:22:00 Test Item Value Reference Range Interpretation Comments Bili Total (test code = Bili Total) 0.3 0.2-1.3 [facility]2019-08-03 10:22:00 Test Item Value Reference Range Interpretation Comments CO2 (test code = CO2) 25 24-32 [facility]2019-08-03 10:22:00 Test Item Value Reference Range Interpretation Comments Chloride Lvl (test code = Chloride Lvl) 106 95-109 [facility]2019-08-03 10:22:00 Test Item Value Reference Range Interpretation Comments Calcium Lvl (test code = Calcium Lvl) 8.2 8.5-10.5 [facility]2019-08-03 10:22:00 Test Item Value Reference Range Interpretation Comments Albumin Lvl (test code = Albumin Lvl) 3.4 3.5-5.0 [facility]2019-08-03 10:22:00 Test Item Value Reference Range Interpretation Comments Total Protein (test code = Total 6.7 6.4-8.4 Protein) [facility]2019-08-03 10:22:00 Test Item Value Reference Range Interpretation Comments AST (test code = AST) 19 See_Comment [Auto mated message] The system which ge nerated this result transmit amando reference range : <=37. The reference range was not used to interpr et this result as shannan l/abnormal. [facility]2019-08-03 10:22:00 Test Item Value Reference Range Interpretation Comments ALT (test code = ALT) 19 See_Comment [Auto mated message] The system which ge nerated this result transmit amando reference range : <=65. The reference range was not used to interpr et this result as shannan l/abnormal. [facility]2019-08-03 10:22:00 Test Item Value Reference Range Interpretation Comments Alk Phos (test code = Alk Phos) 72 39-136 [facility]2019-08-03 10:22:00 Test Item Value Reference Range Interpretation Comments eGFR (test code = eGFR) 139 [facility]2019-08-03 10:22:00 Test Item Value Reference Range Interpretation Comments Glucose Lvl (test code = Glucose Lvl) 87 70-99 [facility]2019-08-03 10:22:00 Test Item Value Reference Range Interpretation Comments Potassium Lvl (test code = Potassium 3.5 3.5-5.1 Lvl) [facility]2019-08-03 10:22:00 Test Item Value Reference Range Interpretation Comments BUN (test code = BUN) 10 7-22 [facility]2019-08-03 10:22:00 Test Item Value Reference Range Interpretation Comments Creatinine Lvl (test code = Creatinine 0.60 0.50-1.40 Lvl) [facility]2019-08-03 10:22:00 Test Item Value Reference Range Interpretation Comments Sodium Lvl (test code = Sodium Lvl) 141 135-145 [facility]2019-08-03 10:22:00 Test Item Value Reference Range Interpretation Comments AGAP (test code = AGAP) 13.5 10.0-20.0 [facility]2019-08-03 10:22:00 Test Item Value Reference Range Interpretation Comments A/G Ratio (test code = A/G Ratio) 1.0 1 0.7-1.6 [facility]2019-08-03 10:22:00 Test Item Value Reference Range Interpretation Comments Globulin (test code = Globulin) 3.3 2.7-4.2 [facility]2019-08-03 10:22:00 Test Item Value Reference Range Interpretation Comments B/C Ratio (test code = B/C Ratio) 17 1 6-25 [facility]oyvfluGAOLPELPZX4654-96-66 10:22:00 Test Item Value Reference Range Interpretation Comments Eosinophils # (test code 0.3 See_Comment [A utomated message] The = Eosinophils #) system whic h generated this result tra nsmitted reference range : <=0.5. The reference r evelyn was not used to int erpret this result as normal/abnormal . [facility] HospitalKuythzoWJIPYBEJYB2697-08-18 10:22:00 Test Item Value Reference Range Interpretation Comments Monocytes (test code = Monocytes) 6.9 2.0-12.0 [facility] HospitalRrdffrlGWZGGUXBHU9349-96-51 10:22:00 Test Item Value Reference Range Interpretation Comments Segs (test code = Segs) 52.8 45.0-75.0 [facility] HospitalOinqteiREDKJFWGKO1359-57-92 10:22:00 Test Item Value Reference Range Interpretation Comments Lymphocytes (test code = Lymphocytes) 36.3 20.0-40.0 [facility] HospitalEtoulusUZPPJIUVRT2156-63-32 10:22:00 Test Item Value Reference Range Interpretation Comments Lymphocytes # (test code = Lymphocytes 2.9 1.0-5.5 #) [facility] HospitalTvcrxmoVQSKVAXRRW6015-80-43 10:22:00 Test Item Value Reference Range Interpretation Comments Neutrophils # (test code = Neutrophils 4.2 1.5-8.1 #) [facility] HospitalUjhkhfcEWKWERDJXB6832-35-21 10:22:00 Test Item Value Reference Range Interpretation Comments Basophils (test code = 0.5 See_Comment [Aut omated message] The Basophils) system which ge nerated this result tra nsmitted reference range : <=1.0. The reference r evelyn was not used to int erpret this result as normal/abnormal . [facility] HospitalQudgbadBNJYWRLMEA7031-87-09 10:22:00 Test Item Value Reference Range Interpretation Comments Eosinophils (test code = 3.5 See_Comment [A utomated message] The Eosinophils) system which ge nerated this result tra nsmitted reference range : <=4.0. The reference r evelyn was not used to int erpret this result as normal/abnormal . [facility] HospitalRltrulrCBWIQRBMUT0528-80-36 10:22:00 Test Item Value Reference Range Interpretation Comments Monocytes # (test code 0.5 See_Comment [Aut omated message] The = Monocytes #) system which generated this result tra nsmitted reference range : <=0.8. The reference r evelyn was not used to int erpret this result as normal/abnormal . [facility] HospitalBrqneefJUKRZRXFCP2936-81-10 10:22:00 Test Item Value Reference Range Interpretation Comments MCHC (test code = MCHC) 35.6 32.0-36.0 [facility] HospitalZbxnzgaPEKLQEDVAD5499-00-85 10:22:00 Test Item Value Reference Range Interpretation Comments Hct (test code = Hct) 34.4 42.0-54.0 [facility] HospitalUqkpsdwWMNPKKKQEF5855-54-54 10:22:00 Test Item Value Reference Range Interpretation Comments Hgb (test code = Hgb) 12.2 14.0-18.0 [facility] HospitalDvmkjpgUTDPFPSNEB9753-74-44 10:22:00 Test Item Value Reference Range Interpretation Comments MCV (test code = MCV) 87.1 80.0-94.0 [facility] HospitalQcciorsUZRTJQZKPL7862-88-79 10:22:00 Test Item Value Reference Range Interpretation Comments MCH (test code = MCH) 31.0 pg 27.0-31.0 [facility] HospitalUusuwttJCHQHZRDGE9509-68-91 10:22:00 Test Item Value Reference Range Interpretation Comments Platelet (test code = Platelet) 187 133-450 [facility] HospitalSxsaueyDGHDVDJPUN1620-50-02 10:22:00 Test Item Value Reference Range Interpretation Comments MPV (test code = MPV) 8.7 7.4-10.4 [facility] HospitalFrjdybvBSTGQDIBUK8750-87-86 10:22:00 Test Item Value Reference Range Interpretation Comments RDW (test code = RDW) 13.9 11.5-14.5 [facility] HospitalQceazlnQVOHGVYETO0683-59-08 10:22:00 Test Item Value Reference Range Interpretation Comments WBC (test code = WBC) 7.9 3.7-10.4 [facility] HospitalWplpcxjZLSKMTRWHQ5405-79-18 10:22:00 Test Item Value Reference Range Interpretation Comments RBC (test code = RBC) 3.95 4.70-6.10 [facility]2019-07-23 02:16:00 Test Item Value Reference Range Interpretation Comments Lactic Acid Lvl (test code = Lactic 1.7 0.5-2.2 Acid Lvl) [facility]2019-07-22 21:13:00 Test Item Value Reference Range Interpretation Comments Lactic Acid Lvl (test code = Lactic 2.2 0.5-2.2 Acid Lvl) [facility]2019-07-22 17:48:00 Test Item Value Reference Range Interpretation Comments Lactic Acid Lvl (test code = Lactic 2.4 0.5-2.2 Acid Lvl) [facility]2019-07-22 14:16:00 Test Item Value Reference Range Interpretation Comments UA Ketones (test code = UA Negative mg/dL Ketones) [facility]2019-07-22 14:16:00 Test Item Value Reference Range Interpretation Comments UA Nitrite (test code Negative (11/18/18 9:16 = UA Nitrite) AM) [facility]2019-07-22 14:16:00 Test Item Value Reference Range Interpretation Comments UA Leuk Est (test Negative (11/18/18 9:16 code = UA Leuk Est) AM) [facility] AND [id number] 14:16:00 Test Item Value Reference Range Interpretation Comments UA Glucose (test code = UA Negative mg/dL Glucose) [facility] AND [id number] 14:16:00 Test Item Value Reference Range Interpretation Comments UA WBC (test code = 1 See_Comment [Automa amando message] The UA WBC) system which ge nerated this result transmit amando reference range : <=5. The reference range was not used to interpr et this result as shannan l/abnormal. [facility] AND [id number] 14:16:00 Test Item Value Reference Range Interpretation Comments UA Bili (test code = Negative *NA*(11/18/18 UA Bili) 9:16 AM) [facility] AND [id number] 14:16:00 Test Item Value Reference Range Interpretation Comments UA Mucus (test code = UA Mucus) Few /LPF [facility] AND [id number] 14:16:00 Test Item Value Reference Range Interpretation Comments UA Blood (test code = Negative (11/18/18 9:16 UA Blood) AM) [facility] AND [id number] 14:16:00 Test Item Value Reference Range Interpretation Comments UA Urobilinogen (test code = UA no gt 0.1-1.0 Urobilinogen) [facility] AND [id number] 14:16:00 Test Item Value Reference Range Interpretation Comments UA Color (test code = Light Yellow UA Color) *NA*(11/18/18 9:16 AM) [facility] AND [id number] 14:16:00 Test Item Value Reference Range Interpretation Comments UA Turbidity (test code = Clear (11/18/18 9:16 UA Turbidity) AM) [facility] AND [id number] 14:16:00 Test Item Value Reference Range Interpretation Comments UA Spec Grav (test code = UA Spec 1.005 1 Grav) [facility] AND [id number] 14:16:00 Test Item Value Reference Range Interpretation Comments UA pH (test code = UA pH) 6.0 1 5.0-8.0 [facility] AND [id number] 14:16:00 Test Item Value Reference Range Interpretation Comments UA Protein (test code = UA Negative mg/dL Protein) [facility] AND [id number] 14:16:00 Test Item Value Reference Range Interpretation Comments UA Sq Epi (test code = UA Sq Epi) None Seen [facility] [id number] 08:58:00 Test Item Value Reference Range Interpretation Comments Phosphorus (test code = Phosphorus) 4.7 2.5-4.5 [facility] [id number] 08:58:00 Test Item Value Reference Range Interpretation Comments Magnesium Lvl (test code = Magnesium 1.9 1.8-2.4 Lvl) [facility]vjbezzXUEJHCOJDQLB7444-35-14 08:58:00 Test Item Value Reference Range Interpretation Comments AGAP (test code = AGAP) 13.5 10.0-20.0 [facility] CenterMbgjapfZRTTCAIPAAKF5829-28-53 08:58:00 Test Item Value Reference Range Interpretation Comments eGFR (test code = eGFR) 133 [facility] CenterHnomqauTPQPUHHAGKQE1644-90-75 08:58:00 Test Item Value Reference Range Interpretation Comments Glucose Lvl (test code = Glucose Lvl) 104 70-99 [facility] CenterYsxxykuHGPVPZQQBIEG4148-91-08 08:58:00 Test Item Value Reference Range Interpretation Comments BUN (test code = BUN) 12 7-22 [facility] CenterMdkahrgMKMWGSYQNSWW4922-98-96 08:58:00 Test Item Value Reference Range Interpretation Comments CO2 (test code = CO2) 23 24-32 [facility] CenterMdogdaqLBCUJCFBSQXG4810-87-88 08:58:00 Test Item Value Reference Range Interpretation Comments Potassium Lvl (test code = Potassium 3.5 3.5-5.1 Lvl) [facility] CenterPwlrlnfTHYTPFYQJORS8684-34-45 08:58:00 Test Item Value Reference Range Interpretation Comments Chloride Lvl (test code = Chloride Lvl) 104 95-109 [facility] CenterMicvkuiKXEGMXLZMKAA9907-27-60 08:58:00 Test Item Value Reference Range Interpretation Comments Creatinine Lvl (test code = Creatinine 0.67 0.50-1.40 Lvl) [facility] CenterNmovediCOSUWVFJFKGZ1811-88-54 08:58:00 Test Item Value Reference Range Interpretation Comments Sodium Lvl (test code = Sodium Lvl) 137 135-145 [facility]H6[facility] 08:58:00 Test Item Value Reference Range Interpretation Comments Calcium Lvl (test code = Calcium Lvl) 9.1 8.5-10.5 [facility] HospitalNkigmlpVWUYRKDZCI4040-37-75 08:58:00 Test Item Value Reference Range Interpretation Comments Eosinophils (test code = 3.5 See_Comment [A utomated message] The Eosinophils) system which ge nerated this result tra nsmitted reference range : <=4.0. The reference r evelyn was not used to int erpret this result as normal/abnormal . [facility] HospitalOpdfokeARJJEJCHVZ3244-90-28 08:58:00 Test Item Value Reference Range Interpretation Comments Monocytes (test code = Monocytes) 7.7 2.0-12.0 [facility] HospitalUwkgelsGUWKQFVVJD4380-02-03 08:58:00 Test Item Value Reference Range Interpretation Comments Lymphocytes (test code = Lymphocytes) 32.4 20.0-40.0 [facility] HospitalOdjpadyIDTLQSKYXT4137-67-58 08:58:00 Test Item Value Reference Range Interpretation Comments Lymphocytes # (test code = Lymphocytes 2.8 1.0-5.5 #) [facility] HospitalEmzynjdKXAVNTQCWZ8976-95-90 08:58:00 Test Item Value Reference Range Interpretation Comments Neutrophils # (test code = Neutrophils 4.8 1.5-8.1 #) [facility] HospitalWhjytqsOWAZQMUDWT4966-77-45 08:58:00 Test Item Value Reference Range Interpretation Comments Basophils (test code = 0.7 See_Comment [Aut omated message] The Basophils) system which ge nerated this result tra nsmitted reference range : <=1.0. The reference r evelyn was not used to int erpret this result as normal/abnormal . [facility] HospitalCpufbcgAPUVXNQJLT7732-69-63 08:58:00 Test Item Value Reference Range Interpretation Comments Basophils # (test code 0.1 See_Comment [Aut omated message] The = Basophils #) system which generated this result tra nsmitted reference range : <=0.2. The reference r evelyn was not used to int erpret this result as normal/abnormal . [facility] HospitalWgqcxnrPVKBXEHMPB9154-45-09 08:58:00 Test Item Value Reference Range Interpretation Comments Eosinophils # (test code 0.3 See_Comment [A utomated message] The = Eosinophils #) system whic h generated this result tra nsmitted reference range : <=0.5. The reference r evelyn was not used to int erpret this result as normal/abnormal . [facility] HospitalIhxqmckHCSGRKESJU5544-17-78 08:58:00 Test Item Value Reference Range Interpretation Comments Monocytes # (test code 0.7 See_Comment [Aut omated message] The = Monocytes #) system which generated this result tra nsmitted reference range : <=0.8. The reference r evelyn was not used to int erpret this result as normal/abnormal . [facility] HospitalFmvzgpeRJMKPPYLKC6944-54-83 08:58:00 Test Item Value Reference Range Interpretation Comments Segs (test code = Segs) 55.7 45.0-75.0 [facility] HospitalVdxbcwwXNVSRXTCGT8005-83-61 08:58:00 Test Item Value Reference Range Interpretation Comments MPV (test code = MPV) 9.4 7.4-10.4 [facility] HospitalOpghgdcODPRFLSDJN9795-23-13 08:58:00 Test Item Value Reference Range Interpretation Comments Platelet (test code = Platelet) 228 133-450 [facility] HospitalNkhbgzbRDPIBXPMBC8274-19-12 08:58:00 Test Item Value Reference Range Interpretation Comments RDW (test code = RDW) 13.3 11.5-14.5 [facility] HospitalTkcdbqpZFHJNAGCLS0596-98-12 08:58:00 Test Item Value Reference Range Interpretation Comments Hgb (test code = Hgb) 13.1 14.0-18.0 [facility] HospitalKcpiiyiVWELXHCFZC1861-85-54 08:58:00 Test Item Value Reference Range Interpretation Comments RBC (test code = RBC) 4.24 4.70-6.10 [facility] HospitalRkxiorjYBPEXAJTWD6895-70-34 08:58:00 Test Item Value Reference Range Interpretation Comments WBC (test code = WBC) 8.7 3.7-10.4 [facility] HospitalUhbpvibQPWGCTQTIC4335-08-52 08:58:00 Test Item Value Reference Range Interpretation Comments MCHC (test code = MCHC) 35.2 32.0-36.0 [facility] HospitalHvogpbmRSYEPKWNOR6720-46-01 08:58:00 Test Item Value Reference Range Interpretation Comments MCH (test code = MCH) 30.8 pg 27.0-31.0 [facility] HospitalLbwhpiyWTPMRCJOAS3592-04-56 08:58:00 Test Item Value Reference Range Interpretation Comments MCV (test code = MCV) 87.6 80.0-94.0 [facility] HospitalOyriydiBAZVVHUZSC8792-62-93 08:58:00 Test Item Value Reference Range Interpretation Comments Hct (test code = Hct) 37.1 42.0-54.0 [facility]2019-07-21 06:25:00 Test Item Value Reference Range Interpretation Comments Amylase Lvl (test code = Amylase Lvl) 72 25-115 [facility]2019-07-21 06:25:00 Test Item Value Reference Range Interpretation Comments Lipase Lvl (test code = Lipase Lvl) 112 73-393 [facility]2019-07-21 06:25:00 Test Item Value Reference Range Interpretation Comments A/G Ratio (test code = A/G Ratio) 1.0 1 0.7-1.6 [facility]2019-07-21 06:25:00 Test Item Value Reference Range Interpretation Comments Globulin (test code = Globulin) 4.0 2.7-4.2 [facility]2019-07-21 06:25:00 Test Item Value Reference Range Interpretation Comments Bili Indirect (test 0.4 See_Comment [Automa amando message] The code = Bili Indirect) system which generated this result tra nsmitted reference range : <=1.0. The reference r evelyn was not used to int erpret this result as normal/abnormal . [facility]2019-07-21 06:25:00 Test Item Value Reference Range Interpretation Comments Bili Direct (test code 0.1 See_Comment [Aut omated message] The = Bili Direct) system which generated this result tra nsmitted reference range : <=0.3. The reference r evelyn was not used to int erpret this result as shannan l/abnormal. [facility]2019-07-21 06:25:00 Test Item Value Reference Range Interpretation Comments Bili Total (test code = Bili Total) 0.5 0.2-1.3 [place] 548519-07-21 06:25:00 Test Item Value Reference Range Interpretation Comments AST (test code = AST) 26 See_Comment [Auto mated message] The system which ge nerated this result transmit amando reference range : <=37. The reference range was not used to interpr et this result as shannan l/abnormal. [facility]2019-07-21 06:25:00 Test Item Value Reference Range Interpretation Comments Alk Phos (test code = Alk Phos) 94 39-136 [facility]2019-07-21 06:25:00 Test Item Value Reference Range Interpretation Comments ALT (test code = ALT) 28 See_Comment [Auto mated message] The system which ge nerated this result transmit amando reference range : <=65. The reference range was not used to interpr et this result as shannan l/abnormal. [facility]2019-07-21 06:25:00 Test Item Value Reference Range Interpretation Comments Albumin Lvl (test code = Albumin Lvl) 3.9 3.5-5.0 [facility]2019-07-21 06:25:00 Test Item Value Reference Range Interpretation Comments Total Protein (test code = Total 7.9 6.4-8.4 Protein) [facility]2019-07-21 06:25:00 Test Item Value Reference Range Interpretation Comments Ammonia (test code = Ammonia) 11.0 [facility] [employer] [id number] 04:26:00 Test Item Value Reference Range Interpretation Comments Troponin-I (test code 0.09 See_Comment [Auto mated message] The = Troponin-I) system which g enerated this result transmit amando reference range : <=0.40. The reference r evelyn was not used to interpr et this result as shannan l/abnormal. [facility] [employer] [id number] 04:26:00 Test Item Value Reference Range Interpretation Comments Total CK (test code = Total CK) 85 12-191 [facility]2019-07-21 04:26:00 Test Item Value Reference Range Interpretation Comments eGFR (test code = eGFR) 127 [facility]2019-07-21 04:26:00 Test Item Value Reference Range Interpretation Comments CO2 (test code = CO2) 26 24-32 [facility]2019-07-21 04:26:00 Test Item Value Reference Range Interpretation Comments Chloride Lvl (test code = Chloride Lvl) 100 95-109 [facility]2019-07-21 04:26:00 Test Item Value Reference Range Interpretation Comments AGAP (test code = AGAP) 16.5 10.0-20.0 [facility]2019-07-21 04:26:00 Test Item Value Reference Range Interpretation Comments Calcium Lvl (test code = Calcium Lvl) 9.2 8.5-10.5 [facility]2019-07-21 04:26:00 Test Item Value Reference Range Interpretation Comments Sodium Lvl (test code = Sodium Lvl) 139 135-145 [facility]2019-07-21 04:26:00 Test Item Value Reference Range Interpretation Comments Creatinine Lvl (test code = Creatinine 0.75 0.50-1.40 Lvl) [facility]2019-07-21 04:26:00 Test Item Value Reference Range Interpretation Comments Potassium Lvl (test code = Potassium 3.5 3.5-5.1 Lvl) [facility]2019-07-21 04:26:00 Test Item Value Reference Range Interpretation Comments BUN (test code = BUN) 15 7-22 [facility]2019-07-21 04:26:00 Test Item Value Reference Range Interpretation Comments Glucose Lvl (test code = Glucose Lvl) 99 70-99 [facility] HospitalYrimliiRUSJQHXQIE7376-33-30 03:29:00 Test Item Value Reference Range Interpretation Comments INR (test code = INR) 1.06 1 0.85-1.17 [facility] HospitalCipnkvvUYXIZMIGFZ0733-52-35 03:29:00 Test Item Value Reference Range Interpretation Comments PT (test code = PT) 13.6 s 12.0-14.7 [facility] HospitalOqyumpqHEHNEDURLT9110-38-54 03:29:00 Test Item Value Reference Range Interpretation Comments WBC (test code = WBC) 10.1 3.7-10.4 [facility] HospitalOljqzhdTFGRVTMZTW5584-06-40 03:29:00 Test Item Value Reference Range Interpretation Comments Hgb (test code = Hgb) 12.9 14.0-18.0 [facility] HospitalDvhtehyYLSVIZWJFJ0830-71-42 03:29:00 Test Item Value Reference Range Interpretation Comments MCH (test code = MCH) 30.1 pg 27.0-31.0 [facility] HospitalRrxeampWHCDGEBHUK6115-37-71 03:29:00 Test Item Value Reference Range Interpretation Comments MCHC (test code = MCHC) 34.5 32.0-36.0 [facility] HospitalIcjwzxaYKSHHNGBMD5378-74-49 03:29:00 Test Item Value Reference Range Interpretation Comments Hct (test code = Hct) 37.3 42.0-54.0 [facility] HospitalWhsyypxRZBHXSTCME4927-90-89 03:29:00 Test Item Value Reference Range Interpretation Comments MCV (test code = MCV) 87.3 80.0-94.0 [facility] HospitalJniyyhwZIXWOKGZVD7027-69-53 03:29:00 Test Item Value Reference Range Interpretation Comments RBC (test code = RBC) 4.28 4.70-6.10 [facility] HospitalMxtjgabDNVJRYDIZL1440-13-72 03:29:00 Test Item Value Reference Range Interpretation Comments RDW (test code = RDW) 13.8 11.5-14.5 [facility] HospitalOotbggsMGPPYQTHUC3908-23-43 03:29:00 Test Item Value Reference Range Interpretation Comments Platelet (test code = Platelet) 254 133-450 [facility] HospitalAixnvdoHVPGEPDDCM9024-40-19 03:29:00 Test Item Value Reference Range Interpretation Comments MPV (test code = MPV) 9.1 7.4-10.4 [facility] HospitalZoerxfaCYRXCKHXVP6513-02-33 03:29:00 Test Item Value Reference Range Interpretation Comments PTT (test code = PTT) 32.3 s 22.9-35.8 [facility] HospitalLjexkzrZFWDOBNCBE9850-81-89 03:29:00 Test Item Value Reference Range Interpretation Comments Segs (test code = Segs) 60.4 45.0-75.0 [facility] HospitalApihpgiCYOABORIAQ2361-06-88 03:29:00 Test Item Value Reference Range Interpretation Comments Basophils (test code = 0.8 See_Comment [Aut omated message] The Basophils) system which ge nerated this result tra nsmitted reference range : <=1.0. The reference r evelyn was not used to int erpret this result as normal/abnormal . [facility] HospitalHupmjgkALSQUITXTF1996-37-21 03:29:00 Test Item Value Reference Range Interpretation Comments Eosinophils (test code = 2.7 See_Comment [A utomated message] The Eosinophils) system which ge nerated this result tra nsmitted reference range : <=4.0. The reference r evelyn was not used to int erpret this result as normal/abnormal . [facility] HospitalXihmqgmZDXOCXHDMK5141-41-03 03:29:00 Test Item Value Reference Range Interpretation Comments Lymphocytes (test code = Lymphocytes) 29.3 20.0-40.0 [facility] HospitalFqvmsykSKGUZMWCPK0265-53-25 03:29:00 Test Item Value Reference Range Interpretation Comments Monocytes (test code = Monocytes) 6.8 2.0-12.0 [facility] HospitalRtdlmdaXRBBVYNBOV4943-51-64 03:29:00 Test Item Value Reference Range Interpretation Comments Lymphocytes # (test code = Lymphocytes 3.0 1.0-5.5 #) [facility] HospitalVdtslebRDIXHFVCGX9426-57-83 03:29:00 Test Item Value Reference Range Interpretation Comments Monocytes # (test code 0.7 See_Comment [Aut omated message] The = Monocytes #) system which generated this result tra nsmitted reference range : <=0.8. The reference r evelyn was not used to int erpret this result as normal/abnormal . [facility] HospitalVdkpnbfYEHTYKSLLH3721-85-43 03:29:00 Test Item Value Reference Range Interpretation Comments Neutrophils # (test code = Neutrophils 6.1 1.5-8.1 #) [facility] HospitalLaglpwdEIZDFIYDZL5550-14-61 03:29:00 Test Item Value Reference Range Interpretation Comments Basophils # (test code 0.1 See_Comment [Aut omated message] The = Basophils #) system which generated this result tra nsmitted reference range : <=0.2. The reference r evelyn was not used to int erpret this result as normal/abnormal . [facility] HospitalPcszygrEXPLFPZCAJ5479-53-79 03:29:00 Test Item Value Reference Range Interpretation Comments Eosinophils # (test code 0.3 See_Comment [A utomated message] The = Eosinophils #) system whic h generated this result tra nsmitted reference range : <=0.5. The reference r evelyn was not used to int erpret this result as normal/abnormal . [facility]VsxqfvfRADGAFSBWW0073-69-21 14:21:00 Test Item Value Reference Range Interpretation Comments Basophils (test code = 0.6 See_Comment [Aut omated message] The Basophils) system which ge nerated this result tra nsmitted reference range : <=1.0. The reference r evelyn was not used to int erpret this result as normal/abnormal . [facility] HospitalQivogqgIMAPLBGTEB9402-55-83 14:21:00 Test Item Value Reference Range Interpretation Comments Eosinophils (test code = 3.0 See_Comment [A utomated message] The Eosinophils) system which ge nerated this result tra nsmitted reference range : <=4.0. The reference r evelyn was not used to int erpret this result as normal/abnormal . [facility] HospitalSsaeajrYEBKNPPTIW2947-28-46 14:21:00 Test Item Value Reference Range Interpretation Comments Monocytes (test code = Monocytes) 6.5 2.0-12.0 [facility] HospitalOhzzghfMNNHISNBSR8117-10-16 14:21:00 Test Item Value Reference Range Interpretation Comments Lymphocytes (test code = Lymphocytes) 28.9 20.0-40.0 [facility] HospitalRuqqtbjJQCAPXCVNT3296-13-85 14:21:00 Test Item Value Reference Range Interpretation Comments Monocytes # (test code 0.7 See_Comment [Aut omated message] The = Monocytes #) system which generated this result tra nsmitted reference range : <=0.8. The reference r evelyn was not used to int erpret this result as normal/abnormal . [facility] HospitalHcnxszpOEWHCYNTKM4091-64-00 14:21:00 Test Item Value Reference Range Interpretation Comments Lymphocytes # (test code = Lymphocytes 3.0 1.0-5.5 #) [facility] HospitalOcjngmaGDJBSEJDDS1111-84-56 14:21:00 Test Item Value Reference Range Interpretation Comments Neutrophils # (test code = Neutrophils 6.4 1.5-8.1 #) [facility] HospitalBgfbjecITDKNKWOTI0485-20-57 14:21:00 Test Item Value Reference Range Interpretation Comments Basophils # (test code 0.1 See_Comment [Aut omated message] The = Basophils #) system which generated this result tra nsmitted reference range : <=0.2. The reference r evelyn was not used to int erpret this result as normal/abnormal . [facility] HospitalZaqifewESMJLCIDYP9351-63-03 14:21:00 Test Item Value Reference Range Interpretation Comments Eosinophils # (test code 0.3 See_Comment [A utomated message] The = Eosinophils #) system whic h generated this result tra nsmitted reference range : <=0.5. The reference r evelyn was not used to int erpret this result as normal/abnormal . [place] 136149-07-08 14:21:00 Test Item Value Reference Range Interpretation Comments Segs (test code = Segs) 61.0 45.0-75.0 [facility] HospitalDmssmubGVQIKJDMAC0123-02-71 14:21:00 Test Item Value Reference Range Interpretation Comments RBC (test code = RBC) 4.13 4.70-6.10 [facility] HospitalHztszutUKJCTOPZVW7461-14-02 14:21:00 Test Item Value Reference Range Interpretation Comments WBC (test code = WBC) 10.4 3.7-10.4 [facility] HospitalVbsfpkfBKQXZYXNIR1315-51-10 14:21:00 Test Item Value Reference Range Interpretation Comments MCHC (test code = MCHC) 35.0 32.0-36.0 [facility] HospitalLrdrelrEQTLZLXODR7473-07-63 14:21:00 Test Item Value Reference Range Interpretation Comments Platelet (test code = Platelet) 218 133-450 [facility] HospitalTenfwicAQCXGZILQR6761-33-28 14:21:00 Test Item Value Reference Range Interpretation Comments RDW (test code = RDW) 13.3 11.5-14.5 [facility] HospitalSwwooqxDXPUOZUMTV9134-11-33 14:21:00 Test Item Value Reference Range Interpretation Comments Hgb (test code = Hgb) 12.5 14.0-18.0 [facility] HospitalVhncmwpNOPTVTJZYX8510-14-05 14:21:00 Test Item Value Reference Range Interpretation Comments MPV (test code = MPV) 8.5 7.4-10.4 [facility] HospitalVkmpyllWFZFPZYXTL6155-39-12 14:21:00 Test Item Value Reference Range Interpretation Comments MCV (test code = MCV) 86.4 80.0-94.0 [facility] HospitalBywvjxeVMVFPFXHYA6562-60-11 14:21:00 Test Item Value Reference Range Interpretation Comments Hct (test code = Hct) 35.6 42.0-54.0 [facility] HospitalKrnywouMHYDHKOMBZ6363-14-30 14:21:00 Test Item Value Reference Range Interpretation Comments MCH (test code = MCH) 30.2 pg 27.0-31.0 [facility] [id number] 11:06:00 Test Item Value Reference Range Interpretation Comments Phosphorus (test code = Phosphorus) 5.4 2.5-4.5 [facility] CenterBion[facility]is [id number] 11:06:00 Test Item Value Reference Range Interpretation Comments Magnesium Lvl (test code = Magnesium 1.8 1.8-2.4 Lvl) [facility]2019-07-08 11:06:00 Test Item Value Reference Range Interpretation Comments eGFR (test code = eGFR) 134 [facility]2019-07-08 11:06:00 Test Item Value Reference Range Interpretation Comments Calcium Lvl (test code = Calcium Lvl) 8.1 8.5-10.5 [facility]2019-07-08 11:06:00 Test Item Value Reference Range Interpretation Comments Sodium Lvl (test code = Sodium Lvl) 137 135-145 [facility]2019-07-08 11:06:00 Test Item Value Reference Range Interpretation Comments Potassium Lvl (test code = Potassium 4.8 3.5-5.1 Lvl) [facility]2019-07-08 11:06:00 Test Item Value Reference Range Interpretation Comments Chloride Lvl (test code = Chloride Lvl) 104 95-109 [facility]2019-07-08 11:06:00 Test Item Value Reference Range Interpretation Comments CO2 (test code = CO2) 25 24-32 [facility]2019-07-08 11:06:00 Test Item Value Reference Range Interpretation Comments BUN (test code = BUN) 15 7-22 [facility]2019-07-08 11:06:00 Test Item Value Reference Range Interpretation Comments Creatinine Lvl (test code = Creatinine 0.65 0.50-1.40 Lvl) [facility]2019-07-08 11:06:00 Test Item Value Reference Range Interpretation Comments Glucose Lvl (test code = Glucose Lvl) 224 70-99 [facility]2019-07-08 11:06:00 Test Item Value Reference Range Interpretation Comments AGAP (test code = AGAP) 12.8 10.0-20.0 [facility] [id number] 11:06:00 Test Item Value Reference Range Interpretation Comments Ca Norm WB (test code = Ca Norm WB) 1.05 1.05-1.25 [facility]RO[facility] TDZEHRA9051-07-32 11:06:00 Test Item Value Reference Range Interpretation Comments Ca Ion WB (test code = Ca Ion WB) 1.05 1.05-1.25 [facility]2019-07-07 09:35:00 Test Item Value Reference Range Interpretation Comments Magnesium Lvl (test code = Magnesium 1.8 1.8-2.4 Lvl) [facility]2019-07-07 09:35:00 Test Item Value Reference Range Interpretation Comments Phosphorus (test code = Phosphorus) 4.2 2.5-4.5 [facility]TfdegreKYWTNQDHLGDA2842-29-83 09:35:00 Test Item Value Reference Range Interpretation Comments AGAP (test code = AGAP) 13.1 10.0-20.0 [facility] CenterXpblikaYJFIBCJAZSTW0475-84-91 09:35:00 Test Item Value Reference Range Interpretation Comments eGFR (test code = eGFR) 128 [facility] CenterKyltgnuQXWZUBGHYCDF9628-73-16 09:35:00 Test Item Value Reference Range Interpretation Comments Calcium Lvl (test code = Calcium Lvl) 8.0 8.5-10.5 [facility] CenterXslrvyhLKISPLGJDHRJ2168-64-04 09:35:00 Test Item Value Reference Range Interpretation Comments Chloride Lvl (test code = Chloride Lvl) 111 95-109 [facility] CenterLhdxcdiRAMYJOQUPGNI5125-59-35 09:35:00 Test Item Value Reference Range Interpretation Comments CO2 (test code = CO2) 21 24-32 [facility] CenterIdqgqmdMJSBSDYSNUGS8528-72-00 09:35:00 Test Item Value Reference Range Interpretation Comments BUN (test code = BUN) 10 7-22 [facility] CenterCvfcyhyANOKVHQYHIMM4586-18-10 09:35:00 Test Item Value Reference Range Interpretation Comments Creatinine Lvl (test code = Creatinine 0.72 0.50-1.40 Lvl) [facility] CenterDscgatuIETURBGLMVMO6041-55-32 09:35:00 Test Item Value Reference Range Interpretation Comments Glucose Lvl (test code = Glucose Lvl) 94 70-99 [facility] CenterIpzmkpoSIUDQNTCNYBT5929-68-96 09:35:00 Test Item Value Reference Range Interpretation Comments Sodium Lvl (test code = Sodium Lvl) 142 135-145 [facility] CenterMvlghomHQEIFDTPKWGK1215-20-59 09:35:00 Test Item Value Reference Range Interpretation Comments Potassium Lvl (test code = Potassium 3.1 3.5-5.1 Lvl) [facility]QwkeseiIUASEYOULS3543-41-55 09:35:00 Test Item Value Reference Range Interpretation Comments Eosinophils # (test code 0.2 See_Comment [A utomated message] The = Eosinophils #) system whic h generated this result tra nsmitted reference range : <=0.5. The reference r evelyn was not used to int erpret this result as normal/abnormal . [facility] HospitalAjlywqhTRXVFRGYKA0597-65-11 09:35:00 Test Item Value Reference Range Interpretation Comments Basophils # (test code 0.1 See_Comment [Aut omated message] The = Basophils #) system which generated this result tra nsmitted reference range : <=0.2. The reference r evelyn was not used to int erpret this result as normal/abnormal . [facility] HospitalFenlsgwFDNIYNFRFC2759-03-37 09:35:00 Test Item Value Reference Range Interpretation Comments Lymphocytes (test code = Lymphocytes) 37.1 20.0-40.0 [facility] HospitalVfpzuhkQDVZXOFTDT8771-77-96 09:35:00 Test Item Value Reference Range Interpretation Comments Monocytes (test code = Monocytes) 8.0 2.0-12.0 [facility] HospitalYewgdcyDAXXYRNZNR8090-59-16 09:35:00 Test Item Value Reference Range Interpretation Comments Segs (test code = Segs) 51.3 45.0-75.0 [facility] HospitalUeflztgMHEJKPONSG9805-11-01 09:35:00 Test Item Value Reference Range Interpretation Comments Monocytes # (test code 0.7 See_Comment [Aut omated message] The = Monocytes #) system which generated this result tra nsmitted reference range : <=0.8. The reference r evelyn was not used to int erpret this result as normal/abnormal . [facility] HospitalIcjxykfHRKMVKGAHA2668-47-99 09:35:00 Test Item Value Reference Range Interpretation Comments Lymphocytes # (test code = Lymphocytes 3.1 1.0-5.5 #) [facility] HospitalBomtjrrTRIKKDUAVL6682-30-02 09:35:00 Test Item Value Reference Range Interpretation Comments Eosinophils (test code = 2.7 See_Comment [A utomated message] The Eosinophils) system which ge nerated this result tra nsmitted reference range : <=4.0. The reference r evelyn was not used to int erpret this result as normal/abnormal . [facility] HospitalBfmnmlqEBNQFXFMII7345-87-52 09:35:00 Test Item Value Reference Range Interpretation Comments Basophils (test code = 0.9 See_Comment [Aut omated message] The Basophils) system which ge nerated this result tra nsmitted reference range : <=1.0. The reference r evelyn was not used to int erpret this result as normal/abnormal . [facility] HospitalCkbdrgwQRNGYJRNBP0805-82-86 09:35:00 Test Item Value Reference Range Interpretation Comments Neutrophils # (test code = Neutrophils 4.3 1.5-8.1 #) [facility] HospitalWzsssqiWVFNIGKLFN4373-87-33 09:35:00 Test Item Value Reference Range Interpretation Comments WBC (test code = WBC) 8.5 3.7-10.4 [facility] HospitalAvakyexJLWMLOBDFR5182-87-39 09:35:00 Test Item Value Reference Range Interpretation Comments RBC (test code = RBC) 3.70 4.70-6.10 [facility] HospitalNgsfvspXXCQJMGYGW7211-97-46 09:35:00 Test Item Value Reference Range Interpretation Comments Hgb (test code = Hgb) 11.3 14.0-18.0 [facility] HospitalLadexsvOGJCJMIHEN0784-28-01 09:35:00 Test Item Value Reference Range Interpretation Comments Hct (test code = Hct) 31.5 42.0-54.0 [facility] HospitalDgxxnfnUSHXQUUMCQ7720-86-85 09:35:00 Test Item Value Reference Range Interpretation Comments MPV (test code = MPV) 9.4 7.4-10.4 [facility] HospitalGowfkyaXPAGUNTSFL6730-09-81 09:35:00 Test Item Value Reference Range Interpretation Comments RDW (test code = RDW) 12.9 11.5-14.5 [facility] HospitalHcsfthlUYDJUTOYLR5680-43-15 09:35:00 Test Item Value Reference Range Interpretation Comments Platelet (test code = Platelet) 207 133-450 [facility] HospitalXcwxcezKXKOOPFHPZ7125-11-86 09:35:00 Test Item Value Reference Range Interpretation Comments MCHC (test code = MCHC) 35.9 32.0-36.0 [facility] HospitalTdwbadeNZLSIXHYUU9565-38-96 09:35:00 Test Item Value Reference Range Interpretation Comments MCH (test code = MCH) 30.5 pg 27.0-31.0 [facility] HospitalAuajipiANWSQXJGJF9550-91-45 09:35:00 Test Item Value Reference Range Interpretation Comments MCV (test code = MCV) 85.1 80.0-94.0 [facility]ATH[facility] EKYJKGW0581-69-93 09:35:00 Test Item Value Reference Range Interpretation Comments Ca Norm WB (test code = Ca Norm WB) 1.08 1.05-1.25 [facility]ATHY[facility]ID XIFRSRE9173-47-27 09:35:00 Test Item Value Reference Range Interpretation Comments Ca Ion WB (test code = Ca Ion WB) 1.09 1.05-1.25 [facility]2019-07-06 08:48:00 Test Item Value Reference Range Interpretation Comments Phosphorus (test code = Phosphorus) 4.1 2.5-4.5 [facility]2019-07-06 08:48:00 Test Item Value Reference Range Interpretation Comments Magnesium Lvl (test code = Magnesium 1.5 1.8-2.4 Lvl) [facility]2019-07-06 08:48:00 Test Item Value Reference Range Interpretation Comments eGFR (test code = eGFR) 137 [facility]2019-07-06 08:48:00 Test Item Value Reference Range Interpretation Comments Calcium Lvl (test code = Calcium Lvl) 8.9 8.5-10.5 [facility]2019-07-06 08:48:00 Test Item Value Reference Range Interpretation Comments CO2 (test code = CO2) 20 24-32 [facility]2019-07-06 08:48:00 Test Item Value Reference Range Interpretation Comments AGAP (test code = AGAP) 14.0 10.0-20.0 [facility]2019-07-06 08:48:00 Test Item Value Reference Range Interpretation Comments Creatinine Lvl (test code = Creatinine 0.62 0.50-1.40 Lvl) [facility]2019-07-06 08:48:00 Test Item Value Reference Range Interpretation Comments BUN (test code = BUN) 7 7-22 [facility]2019-07-06 08:48:00 Test Item Value Reference Range Interpretation Comments Potassium Lvl (test code = Potassium 3.0 3.5-5.1 Lvl) [facility]2019-07-06 08:48:00 Test Item Value Reference Range Interpretation Comments Sodium Lvl (test code = Sodium Lvl) 143 135-145 [place] 548519-07-06 08:48:00 Test Item Value Reference Range Interpretation Comments Chloride Lvl (test code = Chloride Lvl) 112 95-109 [facility]2019-07-06 08:48:00 Test Item Value Reference Range Interpretation Comments Glucose Lvl (test code = Glucose Lvl) 98 70-99 [facility]2019-07-06 08:48:00 Test Item Value Reference Range Interpretation Comments Lactic Acid Lvl (test code = Lactic 3.6 0.5-2.2 Acid Lvl) [facility] HospitalYhsvtihNXLNKYLSKW9231-13-69 08:48:00 Test Item Value Reference Range Interpretation Comments Basophils # (test code 0.1 See_Comment [Aut omated message] The = Basophils #) system which generated this result tra nsmitted reference range : <=0.2. The reference r evelyn was not used to int erpret this result as normal/abnormal . [facility] HospitalJeqyiaaGMRUPOPOAE7453-16-66 08:48:00 Test Item Value Reference Range Interpretation Comments Basophils (test code = 0.7 See_Comment [Aut omated message] The Basophils) system which ge nerated this result tra nsmitted reference range : <=1.0. The reference r evelyn was not used to int erpret this result as normal/abnormal . [facility] HospitalAfmgfrcZEBEUPXFRB6351-32-77 08:48:00 Test Item Value Reference Range Interpretation Comments Eosinophils (test code = 3.5 See_Comment [A utomated message] The Eosinophils) system which ge nerated this result tra nsmitted reference range : <=4.0. The reference r evelyn was not used to int erpret this result as normal/abnormal . [facility] HospitalHiefiuhVFCHSKQGOT9672-71-81 08:48:00 Test Item Value Reference Range Interpretation Comments Neutrophils # (test code = Neutrophils 4.4 1.5-8.1 #) [facility] HospitalUmnwrsaXHXDQIRWOM9316-02-57 08:48:00 Test Item Value Reference Range Interpretation Comments Monocytes (test code = Monocytes) 8.5 2.0-12.0 [facility] HospitalTebvyiwQGWUNUOYCV2468-31-34 08:48:00 Test Item Value Reference Range Interpretation Comments Lymphocytes (test code = Lymphocytes) 35.2 20.0-40.0 [facility] HospitalBeuozlpKLCVWDPUKL9076-50-31 08:48:00 Test Item Value Reference Range Interpretation Comments Segs (test code = Segs) 52.1 45.0-75.0 [facility] HospitalXswbstdQTCQEDPEGO2769-81-95 08:48:00 Test Item Value Reference Range Interpretation Comments Eosinophils # (test code 0.3 See_Comment [A utomated message] The = Eosinophils #) system whic h generated this result tra nsmitted reference range : <=0.5. The reference r evelyn was not used to int erpret this result as normal/abnormal . [facility] HospitalOybzcvhFSIYUAQNWC3109-04-50 08:48:00 Test Item Value Reference Range Interpretation Comments Monocytes # (test code 0.7 See_Comment [Aut omated message] The = Monocytes #) system which generated this result tra nsmitted reference range : <=0.8. The reference r evelyn was not used to int erpret this result as normal/abnormal . [facility] HospitalOdpfstlEDXNTLSUWP1380-01-74 08:48:00 Test Item Value Reference Range Interpretation Comments Lymphocytes # (test code = Lymphocytes 3.0 1.0-5.5 #) [facility] HospitalBlqpxlwKEDLWIZMDW1422-46-15 08:48:00 Test Item Value Reference Range Interpretation Comments MPV (test code = MPV) 8.7 7.4-10.4 [facility] HospitalMxwrwwvITUSYMEBDZ0862-76-94 08:48:00 Test Item Value Reference Range Interpretation Comments RDW (test code = RDW) 13.0 11.5-14.5 [facility] HospitalOxvkdcrZGNXIRKBOQ6033-65-75 08:48:00 Test Item Value Reference Range Interpretation Comments Platelet (test code = Platelet) 194 133-450 [facility] HospitalDmtocimDLCALZIJUJ3691-83-10 08:48:00 Test Item Value Reference Range Interpretation Comments MCV (test code = MCV) 85.8 80.0-94.0 [facility] HospitalDostvveQYUXITDYGH9863-27-47 08:48:00 Test Item Value Reference Range Interpretation Comments MCH (test code = MCH) 31.1 pg 27.0-31.0 [facility] HospitalRufckbvHVSKSKWFOJ5126-45-93 08:48:00 Test Item Value Reference Range Interpretation Comments MCHC (test code = MCHC) 36.2 32.0-36.0 [facility] HospitalSojntetDQHJYQCZQC4463-01-06 08:48:00 Test Item Value Reference Range Interpretation Comments Hgb (test code = Hgb) 12.2 14.0-18.0 [facility] HospitalFsvpeudAUFJYRUVDG0342-46-36 08:48:00 Test Item Value Reference Range Interpretation Comments Hct (test code = Hct) 33.6 42.0-54.0 [facility] HospitalLhhdxfhWYZOYRXDSW2187-67-75 08:48:00 Test Item Value Reference Range Interpretation Comments WBC (test code = WBC) 8.5 3.7-10.4 [facility] HospitalLublrcmERRQTDLJGG2206-18-85 08:48:00 Test Item Value Reference Range Interpretation Comments RBC (test code = RBC) 3.92 4.70-6.10 [facility]RO[facility] TUTLYKQ0182-23-59 08:48:00 Test Item Value Reference Range Interpretation Comments Ca Ion WB (test code = Ca Ion WB) 1.15 1.05-1.25 [facility] HospitalROID KVCPNHD5316-15-08 08:48:00 Test Item Value Reference Range Interpretation Comments Ca Norm WB (test code = Ca Norm WB) 1.11 1.05-1.25 [facility]CHEM VNTKO3861-96-47 00:46:00 Test Item Value Reference Range Interpretation Comments Lactic Acid Lvl (test code = Lactic 4.7 0.5-2.2 Acid Lvl) [facility] CenterCHEM RFZCH9995-36-67 16:20:00 Test Item Value Reference Range Interpretation Comments Lactic Acid Lvl (test code = Lactic 4.2 0.5-2.2 Acid Lvl) [facility] CenterUbidenpNLPOAHXCDB1091-89-11 08:26:00 Test Item Value Reference Range Interpretation Comments Vanco Tr (test code = Vanco Tr) 1.3 [facility] RkwpmokBTCUALGMLC1460-24-77 08:26:00 Test Item Value Reference Range Interpretation Comments Vanco Tr TND (test code = Vanco Tr 0730 1 TND) [facility] [id number] 15:08:00 Test Item Value Reference Range Interpretation Comments Pyruvic Acid (test code = Pyruvic Acid) 0.3 0.3-0.7 [facility] [id number] 15:08:00 Test Item Value Reference Range Interpretation Comments UA Sq Epi (test code = UA Sq Epi) None [facility] [id number] 15:08:00 Test Item Value Reference Range Interpretation Comments UA Urobilinogen (test code = UA no gt 0.1-1.0 Urobilinogen) [facility] AND [id number] 15:08:00 Test Item Value Reference Range Interpretation Comments UA Nitrite (test code Negative (10/30/18 10:08 = UA Nitrite) AM) [facility] AND [id number] 15:08:00 Test Item Value Reference Range Interpretation Comments UA Mucus (test code = UA Mucus) Few /LPF [facility] AND [id number] 15:08:00 Test Item Value Reference Range Interpretation Comments UA Bacteria (test code = UA Occasional /HPF Bacteria) [facility] AND [id number] 15:08:00 Test Item Value Reference Range Interpretation Comments UA Blood (test code = Moderate *ABN*(10/30/18 UA Blood) 10:08 AM) [facility] AND [id number] 15:08:00 Test Item Value Reference Range Interpretation Comments UA Leuk Est (test code Small *ABN*(10/30/18 = UA Leuk Est) 10:08 AM) [facility] AND [id number] 15:08:00 Test Item Value Reference Range Interpretation Comments UA WBC (test code = 1 See_Comment [Automa amando message] The UA WBC) system which ge nerated this result transmit amando reference range : <=5. The reference range was not used to interpr et this result as shannna l/abnormal. [facility] AND [id number] 15:08:00 Test Item Value Reference Range Interpretation Comments UA RBC (test code = 1 See_Comment [Automa amando message] The UA RBC) system which ge nerated this result transmit amando reference range : <=2. The reference range was not used to interpr et this result as shannan l/abnormal. [facility] AND [id number] 15:08:00 Test Item Value Reference Range Interpretation Comments UA Spec Grav (test code = UA Spec 1.005 1 Grav) [facility] AND [id number] 15:08:00 Test Item Value Reference Range Interpretation Comments UA pH (test code = UA pH) 6.0 1 5.0-8.0 [facility] AND [id number] 15:08:00 Test Item Value Reference Range Interpretation Comments UA Protein (test code = UA Negative mg/dL Protein) [facility] AND [id number] 15:08:00 Test Item Value Reference Range Interpretation Comments UA Bili (test code = Negative *NA*(10/30/18 UA Bili) 10:08 AM) [facility] AND [id number] 15:08:00 Test Item Value Reference Range Interpretation Comments UA Turbidity (test code = Clear (10/30/18 10:08 UA Turbidity) AM) [facility] AND [id number] 15:08:00 Test Item Value Reference Range Interpretation Comments UA Ketones (test code = UA Negative mg/dL Ketones) [facility] AND [id number] 15:08:00 Test Item Value Reference Range Interpretation Comments UA Glucose (test code = UA Negative mg/dL Glucose) [facility] AND [id number] 15:08:00 Test Item Value Reference Range Interpretation Comments UA Color (test code = Light Yellow UA Color) *NA*(10/30/18 10:08 AM) [facility] [id number] 23:51:00 Test Item Value Reference Range Interpretation Comments Lipase Lvl (test code = Lipase Lvl) 94 73-393 [facility] [id number] 23:51:00 Test Item Value Reference Range Interpretation Comments Amylase Lvl (test code = Amylase Lvl) 59 25-115 [id number] 21:04:00 Test Item Value Reference Range Interpretation Comments HIV Ag/Ab 4th Gen Negative *NA*(10/28/18 (test code = HIV 4:04 PM) Ag/Ab 4th Gen) [facility] AND [id number] 19:06:00 Test Item Value Reference Range Interpretation Comments UA Nitrite (test code Negative (10/28/18 2:06 = UA Nitrite) PM) [facility] AND [id number] 19:06:00 Test Item Value Reference Range Interpretation Comments UA Leuk Est (test code Trace *ABN*(10/28/18 2:06 = UA Leuk Est) PM) [facility] AND [id number] 19:06:00 Test Item Value Reference Range Interpretation Comments UA Sq Epi (test code = None Seen (10/28/18 2:06 UA Sq Epi) PM) [facility] AND [id number] 19:06:00 Test Item Value Reference Range Interpretation Comments UA Bili (test code = Negative *NA*(10/28/18 UA Bili) 2:06 PM) [facility] AND [id number] 19:06:00 Test Item Value Reference Range Interpretation Comments UA Blood (test code = Negative (10/28/18 2:06 UA Blood) PM) [facility] AND [id number] 19:06:00 Test Item Value Reference Range Interpretation Comments UA Urobilinogen (test code = UA 0.2 0.1-1.0 Urobilinogen) [facility] AND [id number] 19:06:00 Test Item Value Reference Range Interpretation Comments UA Protein (test code Negative (10/28/18 2:06 = UA Protein) PM) [facility] AND [id number] 19:06:00 Test Item Value Reference Range Interpretation Comments UA Glucose (test code Negative (10/28/18 2:06 = UA Glucose) PM) [facility] AND [id number] 19:06:00 Test Item Value Reference Range Interpretation Comments UA Ketones (test code Negative *NA*(10/28/18 = UA Ketones) 2:06 PM) [facility] AND [id number] 19:06:00 Test Item Value Reference Range Interpretation Comments UA Turbidity (test code = Clear (10/28/18 2:06 UA Turbidity) PM) [facility] AND [id number] 19:06:00 Test Item Value Reference Range Interpretation Comments UA pH (test code = UA pH) 5.5 1 5.0-8.0 [facility] AND [id number] 19:06:00 Test Item Value Reference Range Interpretation Comments UA Spec Grav (test code = UA Spec 1.010 1 Grav) [facility] AND [id number] 19:06:00 Test Item Value Reference Range Interpretation Comments UA Color (test code = Yellow *NA*(10/28/18 2:06 UA Color) PM) [facility] AND [id number] 19:06:00 Test Item Value Reference Range Interpretation Comments UA RBC (test code = no gt See_Comment [Automa amando message] The UA RBC) system which ge nerated this result transmit amando reference range : <=2. The reference range was not used to interpr et this result as shannan l/abnormal. [facility] [id number] 19:06:00 Test Item Value Reference Range Interpretation Comments UA WBC (test code = 1 See_Comment [Automa amando message] The UA WBC) system which ge nerated this result transmit amando reference range : <=5. The reference range was not used to interpr et this result as shannan l/abnormal. [facility] [id number] 19:06:00 Test Item Value Reference Range Interpretation Comments UA Bacteria (test code = UA Occasional /HPF Bacteria) [facility] [id number] 19:06:00 Test Item Value Reference Range Interpretation Comments UA Mucus (test code = UA Mucus) Few /LPF [facility] [id number] 21:34:00 Test Item Value Reference Range Interpretation Comments UDS Note (test code = See Note (10/26/18 4:34 UDS Note) PM) [facility] [id number] 21:34:00 Test Item Value Reference Range Interpretation Comments U Phencyclidine Scr (test Negative code = U Phencyclidine *NA*(10/26/18 4:34 Scr) PM) [facility] [id number] 21:34:00 Test Item Value Reference Range Interpretation Comments U Opiate Scr (test Negative *NA*(10/26/18 code = U Opiate Scr) 4:34 PM) [facility] [id number] 21:34:00 Test Item Value Reference Range Interpretation Comments U Heather Scr (test code Negative *NA*(10/26/18 = U Heather Scr) 4:34 PM) [facility] [id number] 21:34:00 Test Item Value Reference Range Interpretation Comments U Amph Scr (test code Negative *NA*(10/26/18 = U Amph Scr) 4:34 PM) [facility] [id number] 21:34:00 Test Item Value Reference Range Interpretation Comments U Benzodiaz Scr (test Positive *ABN*(10/26/18 code = U Benzodiaz Scr) 4:34 PM) [facility] [id number] 21:34:00 Test Item Value Reference Range Interpretation Comments U Cannab Scr (test Negative *NA*(10/26/18 code = U Cannab Scr) 4:34 PM) [facility] [id number] 21:34:00 Test Item Value Reference Range Interpretation Comments U Cocaine Scr (test Negative *NA*(10/26/18 code = U Cocaine Scr) 4:34 PM) [facility] [id number] 21:34:00 Test Item Value Reference Range Interpretation Comments UA Glucose (test code = UA Glucose) 50mg/dl [facility] [id number] 21:34:00 Test Item Value Reference Range Interpretation Comments UA Turbidity (test code = Clear (10/26/18 4:34 UA Turbidity) PM) [facility] [id number] 21:34:00 Test Item Value Reference Range Interpretation Comments UA Spec Grav (test code = UA Spec 1.026 1 Grav) [facility] [id number] 21:34:00 Test Item Value Reference Range Interpretation Comments UA Color (test code = Yellow *NA*(10/26/18 UA Color) 4:34 PM) [facility] [id number] 21:34:00 Test Item Value Reference Range Interpretation Comments UA Bili (test code = Negative *NA*(10/26/18 UA Bili) 4:34 PM) [facility] [id number] 21:34:00 Test Item Value Reference Range Interpretation Comments UA Protein (test code = UA Protein) 100 mg/dL [facility] [id number] 21:34:00 Test Item Value Reference Range Interpretation Comments UA Ketones (test code = UA Negative mg/dL Ketones) [facility] [id number] 21:34:00 Test Item Value Reference Range Interpretation Comments UA pH (test code = UA pH) 5.0 1 5.0-8.0 [facility] [id number] 21:34:00 Test Item Value Reference Range Interpretation Comments UA Urobilinogen (test code = UA no gt 0.1-1.0 Urobilinogen) [facility] [id number] 21:34:00 Test Item Value Reference Range Interpretation Comments UA Blood (test code = Negative (10/26/18 4:34 UA Blood) PM) [facility] AND [id number] 21:34:00 Test Item Value Reference Range Interpretation Comments UA WBC (test code = no gt See_Comment [Automa amando message] The UA WBC) system which ge nerated this result transmit amando reference range : <=5. The reference range was not used to interpr et this result as shannan l/abnormal. [facility] AND [id number] 21:34:00 Test Item Value Reference Range Interpretation Comments UA Nitrite (test code Negative (10/26/18 4:34 = UA Nitrite) PM) [facility] AND [id number] 21:34:00 Test Item Value Reference Range Interpretation Comments UA Mucus (test code = UA Mucus) Few /LPF [facility] AND [id number] 21:34:00 Test Item Value Reference Range Interpretation Comments UA Leuk Est (test Negative (10/26/18 4:34 code = UA Leuk Est) PM) [facility] AND [id number] 21:34:00 Test Item Value Reference Range Interpretation Comments UA Sq Epi (test code = UA Sq Epi) None Seen [facility] AND [id number] 21:34:00 Test Item Value Reference Range Interpretation Comments UA RBC (test code = 1 See_Comment [Automa amando message] The UA RBC) system which ge nerated this result transmit amando reference range : <=2. The reference range was not used to interpr et this result as shannan l/abnormal. [facility] - [id number] 16:26:00 Test Item Value Reference Range Interpretation Comments MRSA by PCR (test Negative (10/26/18 11:26 code = MRSA by PCR) AM) [facility] [id number] 16:26:00 Test Item Value Reference Range Interpretation Comments Ammonia (test code = Ammonia) 39.0 [facility] [id number] 16:26:00 Test Item Value Reference Range Interpretation Comments A/G Ratio (test code = A/G Ratio) 0.9 1 0.7-1.6 [facility]2019-06-29 16:26:00 Test Item Value Reference Range Interpretation Comments Globulin (test code = Globulin) 3.7 2.7-4.2 [facility]2019-06-29 16:26:00 Test Item Value Reference Range Interpretation Comments Alk Phos (test code = Alk Phos) 91 39-136 [facility]2019-06-29 16:26:00 Test Item Value Reference Range Interpretation Comments Bili Total (test code = Bili Total) 0.3 0.2-1.3 [facility]2019-06-29 16:26:00 Test Item Value Reference Range Interpretation Comments AST (test code = AST) 25 See_Comment [Auto mated message] The system which ge nerated this result transmit amando reference range : <=37. The reference range was not used to interpr et this result as shannan l/abnormal. [facility]2019-06-29 16:26:00 Test Item Value Reference Range Interpretation Comments Bili Direct (test code 0.1 See_Comment [Aut omated message] The = Bili Direct) system which generated this result tra nsmitted reference range : <=0.3. The reference r evelyn was not used to int erpret this result as shannan l/abnormal. [facility]2019-06-29 16:26:00 Test Item Value Reference Range Interpretation Comments Bili Indirect (test 0.2 See_Comment [Automa amando message] The code = Bili Indirect) system which generated this result tra nsmitted reference range : <=1.0. The reference r evelyn was not used to int erpret this result as normal/abnormal . [facility]2019-06-29 16:26:00 Test Item Value Reference Range Interpretation Comments ALT (test code = ALT) 28 See_Comment [Auto mated message] The system which ge nerated this result transmit amando reference range : <=65. The reference range was not used to interpr et this result as shannan l/abnormal. [facility]2019-06-29 16:26:00 Test Item Value Reference Range Interpretation Comments Albumin Lvl (test code = Albumin Lvl) 3.5 3.5-5.0 [facility]2019-06-29 16:26:00 Test Item Value Reference Range Interpretation Comments Total Protein (test code = Total 7.2 6.4-8.4 Protein) [facility]2019-06-29 16:26:00 Test Item Value Reference Range Interpretation Comments Amylase Lvl (test code = Amylase Lvl) 58 25-115 [facility]2019-06-29 16:26:00 Test Item Value Reference Range Interpretation Comments Lipase Lvl (test code = Lipase Lvl) 62 73-393 [facility]2019-06-29 10:46:00 Test Item Value Reference Range Interpretation Comments A/G Ratio (test code = A/G Ratio) 1.0 1 0.7-1.6 [facility]2019-06-29 10:46:00 Test Item Value Reference Range Interpretation Comments B/C Ratio (test code = B/C Ratio) 27 1 6-25 [facility]2019-06-29 10:46:00 Test Item Value Reference Range Interpretation Comments Globulin (test code = Globulin) 3.9 2.7-4.2 [facility]2019-06-29 10:46:00 Test Item Value Reference Range Interpretation Comments ALT (test code = ALT) 30 See_Comment [Auto mated message] The system which ge nerated this result transmit amando reference range : <=65. The reference range was not used to interpr et this result as shannan l/abnormal. [facility]2019-06-29 10:46:00 Test Item Value Reference Range Interpretation Comments Bili Total (test code = Bili Total) 0.3 0.2-1.3 [facility]2019-06-29 10:46:00 Test Item Value Reference Range Interpretation Comments Alk Phos (test code = Alk Phos) 97 39-136 [facility]2019-06-29 10:46:00 Test Item Value Reference Range Interpretation Comments Albumin Lvl (test code = Albumin Lvl) 4.0 3.5-5.0 [facility]2019-06-29 10:46:00 Test Item Value Reference Range Interpretation Comments AST (test code = AST) 23 See_Comment [Auto mated message] The system which ge nerated this result transmit amando reference range : <=37. The reference range was not used to interpr et this result as shannan l/abnormal. [facility] [id number] 10:46:00 Test Item Value Reference Range Interpretation Comments Total Protein (test code = Total 7.9 6.4-8.4 Protein) [facility] [id number] 10:46:00 Test Item Value Reference Range Interpretation Comments Bili Direct (test code no gt See_Comment [Aut omated message] The = Bili Direct) system which generated this result tra nsmitted reference range : <=0.3. The reference r evelyn was not used to int erpret this result as shannan l/abnormal. [facility] [id number] 10:46:00 Test Item Value Reference Range Interpretation Comments VLDL (test code = VLDL) 24 1 [facility] [id number] 10:46:00 Test Item Value Reference Range Interpretation Comments LDL (Calculated) (test code = LDL 78 (Calculated)) [facility] [id number] 10:46:00 Test Item Value Reference Range Interpretation Comments Trig (test code = Trig) 118 [facility] [id number] 10:46:00 Test Item Value Reference Range Interpretation Comments HDL (test code = HDL) 34 [id number] 10:46:00 Test Item Value Reference Range Interpretation Comments Chol (test code = Chol) 136 [facility] [id number] 10:46:00 Test Item Value Reference Range Interpretation Comments CHD Risk (test code = CHD Risk) 4.00 1 4.00-7.30 [id number] 10:46:00 Test Item Value Reference Range Interpretation Comments Hgb A1C (test code = Hgb A1C) 5.4 [facility]
[2022-09-07 11:17] LABS: Absolute Lymphocytes (CBC) 2.3 K/uL (0.7-4.9); Hematocrit 36.6 % (39.6-49.0); Lymphocytes % 32.3 % (15.3-44.8); MPV 9.3 fL (7.6-11.3); RBC Red Blood Cell Count 4.21 M/uL (4.33-5.43)
[2022-09-07 12:10] LABS: Albumin 3.6 g/dL (3.4-5.0); Bilirubin Total 0.2 mg/dL (0.2-1.0); Potassium 3.5 mEq/L (3.5-5.1); Protein, Total 7.5 g/dL (6.4-8.2)
--- NOTE | 2022-09-07 12:23 | RAD REPORT ---
EXAM DESCRIPTION: CT - Head Brain Wo Cont - 09/07/2022 12:03 pm CLINICAL HISTORY: SEIZURE COMPARISON: Head Brain Wo Cont dated 01/21/2021; Head Brain Wo Cont dated 11/29/2020 TECHNIQUE: Noncontrast head CT images ad were obtained without IV contrast. Multiplanar reformats we re generated and reviewed. All CT scans are performed using dose optimization technique as appropriate and may include automated exposure control or mA/KV adjustment according to patient size. FINDINGS: No intracranial hemorrhage, mass, or edema. Midline structures are unremarkable. Stable ventricular caliber, with moderate central parenchymal volume loss. Areas of encephalomalacia involving the anterior temporal poles bilaterally, as well as smaller regio ns in the anterior right frontal lobe and basal left frontal lobe. Distribution is stable. Linear esthela ateral basal ganglia areas of hypoattenuation are stable. No new areas of longo-white matter dediffere ntiation. Mastoid air cells and visualized portions of the paranasal sinuses are clear. No acute bony findings. IMPRESSION: No evidence of an acute intracranial process. 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
--- NOTE | 2022-09-07 15:04 | EDPHYS ---
Physician Documentation [facility] Name: Lucien Calvillo Jr Age: 32 yrs Sex: Male : 1990 Arrival Date: 09/07/2022 Time: 10:49 Bed 15 Private MD: ED Physician Mitchell Bro HPI: 09/07 11:14 This 32 yrs old Male presents to ER via EMS with complaints of Seizure. rt 11:14 Patient with history of seizure disorder presents to the ED with a breakthrough rt seizure. Patient was recently in nursing home, was not taking his antiepileptics while he was incarcerated. He does not remember the last time that he took his antiepileptics. He did have a seizure today. He had return to baseline mental status, denies any complaints at this time. Symptoms are moderate severity, no other aggravating or alleviating factors.. Historical: - Allergies: 10:59 Amoxicillin; nj1 - PMHx: 10:59 Bipolar disorder; CVA; MELAS; Seizures; nj1 - Immunization history:: Client reports having NOT received the Covid vaccine. - Social history:: Smoking status: Patient/guardian denies using tobacco, the patient reports quitting approximately 1.5 years ago. - Family history:: not pertinent. ROS: 11:14 Neuro: Positive for rt 12:01 Constitutional: Negative for fever, chills, and weight loss, Eyes: Negative for injury, rt pain, redness, and discharge, Cardiovascular: Negative for chest pain, palpitations, and edema, Respiratory: Negative for shortness of breath, cough, wheezing, and pleuritic chest pain, Abdomen/GI: Negative for abdominal pain, nausea, vomiting, diarrhea, and constipation, Skin: Negative for injury, rash, and discoloration, Psych: Negative for depression, anxiety, suicide ideation, homicidal ideation, and hallucinations. 12:01 Neuro: Positive for seizure activity, Negative for altered mental status. Exam: 12:01 Constitutional: This is a well developed, well nourished patient who is awake, alert, rt and in no acute distress. Head/Face: Normocephalic, atraumatic. Chest/axilla: Normal chest wall appearance and motion. Nontender with no deformity. No lesions are appreciated. Cardiovascular: Regular rate and rhythm with a normal S1 and S2. No gallops, murmurs, or rubs. Normal PMI, no JVD. No pulse deficits. Respiratory: Lungs have equal breath sounds bilaterally, clear to auscultation and percussion. No rales, rhonchi or wheezes noted. No increased work of breathing, no retractions or nasal flaring. Abdomen/GI: Soft, non-tender, with normal bowel sounds. No distension or tympany. No guarding or rebound. No evidence of tenderness throughout. Skin: Warm, dry with normal turgor. Normal color with no rashes, no lesions, and no evidence of cellulitis. MS/ Extremity: Pulses equal, no cyanosis. Neurovascular intact. Full, normal range of motion. Neuro: Awake and alert, GCS 15, oriented to person, place, time, and situation. Cranial nerves II-XII grossly intact. Motor strength 5/5 in all extremities. Sensory grossly intact. Cerebellar exam normal. Normal gait. Psych: Awake, alert, with orientation to person, place and time. Behavior, mood, and affect are within normal limits. Vital Signs: 10:54 BP 114 / 76; Pulse 92; Resp 16; Temp 98.5(O); Pulse Ox 98% on R/A; Weight 63.5 kg; nj1 Height 5 ft. 5 in. ; Pain 0/10; 11:51 BP 111 / 75; Pulse 74; Resp 18; Pulse Ox 100% ; nj1 13:02 BP 117 / 68; Pulse 71; Resp 18; Pulse Ox 100% ; nj1 14:00 BP 124 / 87; Pulse 75; Resp 17; Pulse Ox 100% on R/A; nj1 15:07 BP 122 / 78; Pulse 81; Resp 18; Pulse Ox 100% ; nj1 10:54 Body Mass Index 23.30 (63.50 kg, 165.1 cm) nj1 10:54 Pain Scale: Adult nj1 MDM: 10:55 Patient medically screened. rt 16:16 Differential diagnosis: Seizure disorder, mitochondrial disease, electrolyte rt disturbance. Data reviewed: vital signs, nurses notes, lab test result(s), radiologic studies. Consideration of Admission/Observation Escalation of care including admission/observation considered. Management of patient was discussed with the following: Cell Operator: Discussed with clinical staff and social work at the mitochondrial clinic at [facility], they state that the patient is stable for outpatient management. They cannot give further information on his antiepileptics, however, he was previously on Keppra, will restart this dose. They state that they will arrange for close outpatient follow-up with the patient.. Test considered but Not performed: MRI: No lateralizing deficits, signs of stroke, MRI not indicated. Historians other than the Patient: Family Member: Sister. Care significantly affected by the following chronic conditions: MELAS. Counseling: I had a detailed discussion with the patient and/or guardian regarding: the historical points, exam findings, and any diagnostic results supporting the discharge/admit diagnosis, lab results, the need for outpatient follow up. ED course: Mildly elevated lactate, CPK is most consistent with MELAS as well as having a recent seizure, do not believe the patient is impressive at this time, labs appear to be at his baseline. These do not require further work-up, do not suspect infectious, sepsis etiology.. 09/07 10:55 Order name: CBC with Diff; Complete Time: 11:36 rt 09/07 10:55 Order name: CMP; Complete Time: 12:10 rt 09/07 10:55 Order name: Magnesium; Complete Time: 12:10 rt 09/07 12:56 Order name: Lactate w/ 2H reflex if indic.; Complete Time: 13:50 rt 09/07 12:56 Order name: CPK; Complete Time: 13:50 rt 09/07 11:36 Order name: CT Head Brain wo Cont; Complete Time: 12:23 rt 09/07 12:51 Order name: Social Service Consult [facility] 09/07 11:25 Order name: Labs - recollect needed: please recollect chemistry; Complete Time: 11:51 em1 Administered Medications: No medications were administered Disposition Summary: 09/07/22 15:03 Discharge Ordered Location: Home rt Condition: Stable rt Diagnosis - Breakthrough Seizure rt Followup: rt - With: Private Physician - When: 5 - 6 days - Reason: Discharge Instructions: - Discharge Summary Sheet rt - Seizure, Adult rt Forms: - Medication Reconciliation Form rt - Thank You Letter rt - Antibiotic Education rt - Prescription Opioid Use rt Prescriptions: - Keppra 250 mg Oral tablet - take 1 tablet by ORAL route every 12 hours; 120 tablet; Refills: 0, Product rt Selection Permitted Signatures: Dispatcher [employer] Jatin Kumar em1 [place], Mitchell, MD MD rt Subhash, Sheyla, RN RN nj1
--- NOTE | 2022-09-07 15:04 | ER ---
Nurse's Notes [facility] Name: Lucien Calvillo Jr Age: 32 yrs Sex: Male : 1990 Arrival Date: 09/07/2022 Time: 10:49 Bed 15 Private MD: Diagnosis: Breakthrough Seizure Presentation: 09/07 10:54 Chief complaint: EMS states: Pt out of seizure medications for 3 days. Sister/caregiver nj1 had told them he had a seizure yesterday and today. Pt does not recall what medications he is suppose to take. No seizure activity noted per EMS. A\T\O when they arrived. Coronavirus screen: Vaccine status: Patient reports being unvaccinated. Ebola Screen: No symptoms or risks identified at this time. Initial Sepsis Screen: Does the patient meet any 2 criteria? No. Patient's initial sepsis screen is negative. Does the patient have a suspected source of infection? No. Patient's initial sepsis screen is negative. Risk Assessment: Do you want to hurt yourself or someone else? Patient reports no desire to harm self or others. Onset of symptoms was September 06, 2022. 10:54 Method Of Arrival: EMS: [facility] 10:54 Acuity: GINNY 3 [facility] 10:59 Care prior to arrival: IV initiated. 20 GA, in the left forearm. [facility] Triage Assessment: 11:02 General: Appears in no apparent distress. comfortable, Behavior is calm, cooperative, nj appropriate for age. Pain: Denies pain. Historical: - Allergies: 10:59 Amoxicillin; nj1 - PMHx: 10:59 Bipolar disorder; CVA; MELAS; Seizures; nj1 - Immunization history:: Client reports having NOT received the Covid vaccine. - Social history:: Smoking status: Patient/guardian denies using tobacco, the patient reports quitting approximately 1.5 years ago. - Family history:: not pertinent. Screenin:01 [facility] ED Fall Risk Assessment (Adult) History of falling in the last 3 months, [facility] including since admission No falls in past 3 months (0 pts) Confusion or Disorientation No (0 pts) Intoxicated or Sedated No (0 pts) Impaired Gait No (0 pts) Mobility Assist Device Used No (0 pt) Altered Elimination No (0 pt) Score/Fall Risk Level 0 - 2 = Low Risk Oriented to surroundings, Maintained a safe environment, Hourly rounding (assess needs \T\ fall precautionary measures) done. Abuse screen: Denies threats or abuse. Denies injuries from another. Nutritional screening: No deficits noted. Tuberculosis screening: No symptoms or risk factors identified. Assessment: 11:05 Neuro: Level of Consciousness is awake, alert, obeys commands, Oriented to person, nj1 place, time, situation. 11:05 Cardiovascular: Patient's skin is warm and dry. Respiratory: Airway is patent nj1 Respiratory effort is even, unlabored. 11:51 Reassessment: Patient appears in no apparent distress at this time. Patient and/or nj1 family updated on plan of care and expected duration. Pain level reassessed. Patient is alert, oriented x 3, equal unlabored respirations, skin warm/dry/pink. 12:45 Reassessment: Patient appears in no apparent distress at this time. Patient and/or nj1 family updated on plan of care and expected duration. Pain level reassessed. Patient is alert, oriented x 3, equal unlabored respirations, skin warm/dry/pink. Patient states feeling better. Patient states symptoms have improved. 12:45 Pain: Complains of pain in head and chest Pain currently is 7 out of 10 on a pain scale.nj 13:04 Reassessment: Patient appears in no apparent distress at this time. Patient and/or nj1 family updated on plan of care and expected duration. Pain level reassessed. Patient is alert, oriented x 3, equal unlabored respirations, skin warm/dry/pink. 14:00 Reassessment: Patient appears in no apparent distress at this time. Patient and/or nj1 family updated on plan of care and expected duration. Pain level reassessed. Patient is alert, oriented x 3, equal unlabored respirations, skin warm/dry/pink. Patient denies pain at this time. 15:27 Reassessment: Patient appears in no apparent distress at this time. Patient and/or nj1 family updated on plan of care and expected duration. Pain level reassessed. Patient is alert, oriented x 3, equal unlabored respirations, skin warm/dry/pink. Patient denies pain at this time. Patient states feeling better. Vital Signs: 10:54 BP 114 / 76; Pulse 92; Resp 16; Temp 98.5(O); Pulse Ox 98% on R/A; Weight 63.5 kg; nj1 Height 5 ft. 5 in. ; Pain 0/10; 11:51 BP 111 / 75; Pulse 74; Resp 18; Pulse Ox 100% ; nj1 13:02 BP 117 / 68; Pulse 71; Resp 18; Pulse Ox 100% ; nj1 14:00 BP 124 / 87; Pulse 75; Resp 17; Pulse Ox 100% on R/A; nj1 15:07 BP 122 / 78; Pulse 81; Resp 18; Pulse Ox 100% ; nj1 10:54 Body Mass Index 23.30 (63.50 kg, 165.1 cm) nj1 10:54 Pain Scale: Adult [facility] ED Course: 10:53 Patient arrived in ED. nj1 10:54 Mitchell Bro MD is Attending Physician. rt 10:54 Sheyla Cullen, RN is Primary Nurse. nj1 10:59 Triage completed. nj1 11:00 Arm band placed on left wrist. nj1 11:03 Patient has correct armband on for positive identification. Bed in low position. Call [facility] light in reach. Side rails up X2. Seizure precautions initiated. 11:35 Notified ED physician of other Sister unsure of what medications patient was taking for [facility] seizures. 12:03 CT Head Brain wo Cont In Process Unspecified. EDDC 13:50 Notified ED physician of a critical lab result(s). lactate 2.3. ph 15:26 No provider procedures requiring assistance completed. IV discontinued, intact, nj1 bleeding controlled. Administered Medications: No medications were administered Medication: 15:26 VIS not applicable for this client. nj1 Outcome: 15:03 Discharge ordered by . rt 15:27 Discharged to home ambulatory, with family. nj1 15:27 Condition: stable 15:27 Discharge instructions given to patient, family, Instructed on discharge instructions, follow up and referral plans. medication usage, Demonstrated understanding of instructions, follow-up care, medications, Prescriptions given X 1. 15:27 Patient left the ED. nj1 Signatures: Dispatcher [employer] Cande Hurley, RN RN ph Mitchell Bro MD MD rt Sheyla Cullen, DEANN RN nj
[2022-09-07 15:31] VITALS: TEMP 98.5
[2022-09-07 15:32] VITALS: O2SAT 100
[2022-09-07 15:36] VITALS: BP 122/78
== END 2022-09-07 15:27 | disposition home or self-care (01) ==
LOC: ER 10:49
DX: G40.509 Epileptic seizures related to external causes, not intractable, without status epilepticus (principal); Z88.1 Allergy status to other antibiotic agents
CPT/HCPCS: 36415; 70450; 80053; 82550; 83605; 83735; 85025; 99284